=== PATIENT | male | born 1935 | race Caucasian/White ===

== ENCOUNTER 2016-07-10 12:54 | Outpatient (RCR) | payer BC, MEDICARE ==
[~2016-07-10 12:54] MED LIST: ASCO500T20 PO; ASP81CT PO; ATOR20TA66 PO; ATR20T PO; CALC200T40 PO; CHOL10003 PO; CHOL200018 PO; CHOL200035 PO; DCL250C PO; DICL100G18 TP; METO-272 PO; METO100T5 PO; MTP100TCR PO; MTP50T PO; MULT-850 PO; NAPR220T66 PO; NAPR250T2 PO; OMEG-109 PO; OMEG1CAP24 PO; OXYC-197 PO; OXYC-471 PO; POTA99TA18 PO; RIFA150C3 PO; TERA5CAP10 PO; TERA5CAP3 PO; TRIA1CAP4 PO; TRIA1TAB2 PO
== END 2016-07-10 15:04 | disposition home or self-care (01) ==
PROVIDERS: ATTEND Nurse Practitioner
DX: Z47.1 Aftercare following joint replacement surgery (principal); Z96.651 Presence of right artificial knee joint

== ENCOUNTER 2017-01-22 03:16 | Emergency (ER) | payer BC, MEDICARE ==
[~2017-01-22] VITALS: Ht 175.3 cm; Wt 94.3 kg
[~2017-01-22 03:16] MED LIST changes: -METO-272 PO; +METO-370 PO; -NAPR250T2 PO; +NAPR250T6 PO
[2017-01-22] MEDS ORDERED: KETOROLAC 30 MG/ML VIAL IVP STA (03:26)
[2017-01-22] MEDS ORDERED: LACTATED RINGERS 1,000 ML IV ONE (03:26)
--- NOTE | 2017-01-22 03:34 | ED Abdominal Pain ---
General Chief Complaint: Abdominal/GI Problems Stated Complaint: SEVERE ABD PAIN Source of Information: Patient History of Present Illness Time Seen By Provider: 03:19 Initial Comments PT ARRIVES VIA POV FROM HOME C/O SEVERE LLQ PAIN SINCE 2300 MADI TOOK 2 OXYCODONE WITHOUT RELIEF RATES PAIN 10/10 PAIN IS WORSE WITH LAYING FLAT, NOTHING IMPROVES PAIN NO NAUSEA/VOMITING/DIARRHEA HAS BEEN CONSTIPATED TODAY--HAD SMALL BM THIS AM, AND THIS EVENING PASSED A FEW HARD NATASHA--STATES PAIN FEELS LIKE HE IS SEVERELY CONSTIPATED, BUT HAS NOT HAD THIS PROBLEM BEFORE, EXCEPT STATES IT FEELS LIKE WHEN HE HAD APPENDICITIS ONLY PAIN WAS ON THE OTHER SIDE AT THAT TIME NO FEVER NO URINARY SYMPTOMS--HAS PROSTATE PROBLEMS AND ALWAYS HAS DIFFICULTY STARTING STREAM, AND THIS IS NOT ANY DIFFERENT PT LATER STATES THAT HE HAS HAD KIDNEY STONES IN THE PAST AND THIS FEELS THE SAME PCP: DR. BEAR SMALL PIECE CUTTER: DR. CHU UROLOGIST: DR. MARTINEZ Allergies and Home Medications Allergies Coded Allergies: No Known Drug Allergies (Unverified , 04/04/16) Home Medications Ascorbic Acid 500 Mg Tablet, 500 MG PO DAILY, (Reported) Aspirin 81 Mg Chew, 81 MG PO DAILY, (Reported) Atorvastatin Calcium 20 Mg Tablet, 20 MG PO HS, (Reported) Calcium Carbonate 200 Mg Tab.chew, 500 MG PO QID PRN for GAS, #60 Prescribed by: KEN MTZ on 04/12/16 0813 Cholecalciferol (Vitamin D3) 1,000 Unit Tablet, 1,000 UNIT PO DAILY, (Reported) Ciprofloxacin HCl 500 Mg Tablet, 500 MG PO BID, #20 Prescribed by: VI BLAKELY on 01/22/17 0442 Ketorolac Tromethamine 10 Mg Tablet, 10 MG PO Q6H, #15 Prescribed by: VI BLAKELY on 01/22/17 0442 Metoprolol Succinate 50 Mg Tab.er.24h, 50 MG PO DAILY, (Reported) Ollie-3 Fatty Acids/Fish Oil 1 Each Capsule, 1,200 MG PO DAILY, (Reported) Ondansetron 4 Mg Tab.rapdis, 4 MG PO Q4H, #10 Prescribed by: VI BLAKELY on 01/22/17 0442 Oxycodone HCl/Acetaminophen 1 Each Tablet, 1 TAB PO Q4H PRN for MODERATE PAIN, # 60 Prescribed by: KEN MTZ on 04/12/16 0813 Tamsulosin HCl 0.4 Mg Cap, 0.4 MG PO DAILY, #10 Prescribed by: VI BLAKELY on 01/22/17 0442 Terazosin HCl 5 Mg Capsule, 5 MG PO HS, (Reported) Triamterene/Hydrochlorothiazid 1 Each Capsule, 1 TAB PO DAILY, (Reported) Review of Systems Constitutional: no symptoms reported Respiratory: No Symptoms Reported Cardiovascular: No Symptoms Reported Gastrointestinal: See HPI, Abdominal Pain, Constipated, Denies Nausea, Denies Poor Appetite, Denies Poor Fluid Intake, Denies Rectal Bleeding, Denies Vomiting Genitourinary: See HPI Musculoskeletal: no symptoms reported, No back pain Skin: no symptoms reported Psychiatric/Neurological: No Symptoms Reported, Anxiety Endocrine: No Symptoms Reported Hematologic/Lymphatic: No Symptoms Reported Past Pltpygf-Ggttgm-Wkkdde Hx Patient Social History Alcohol Use: Denies Use Recreational Drug Use: No Smoking Status: Never a Smoker Former Smoker, Quit: May 05, 1968 Recent Foreign Travel: No Contact w/Someone Who Travel: No Recent Hopitalizations: Yes (SURGERY RELATED) Immunizations Up To Date Tetanus Booster (TDap): Unknown Date of Pneumonia Vaccine: Oct 03, 2008 Date of Influenza Vaccine: Apr 06, 2016 Seasonal Allergies Seasonal Allergies: No Surgeries History of Surgeries: Yes (HEMORRHOIDECTOMY; RIGHT KNEE REPLACEMENT 11/2015- THEN REVISION X 2 04/2016 FOR INFECTION) Surgeries: Appendectomy, Orthopedic, Rectal Respiratory History of Respiratory Disorde: No Cardiovascular History of Cardiac Disorders: Yes Cardiac Disorders: High Cholesterol, Hypertension Neurological History of Neurological Disord: No Reproductive System Hx Reproductive Disorders: No Genitourinary History of Genitourinary Disor: Yes Genitourinary Disorders: Prostate Problems, Kidney Stones Gastrointestinal History of Gastrointestinal Di: Yes Gastrointestinal Disorders: Hemorrhoids Musculoskeletal History of Musculoskeletal Dis: Yes (RIGHT KNEE PROBLEMS --POST OP INFECTION AFTER RIGHT TKR 11/2015--STILL TAKING PENICILLIN DAILY OF 01/22/17) Musculoskeletal Disorders: Arthritis Endocrine History of Endocrine Disorders: No HEENT History of HEENT Disorders: Yes HEENT Disorders: Cataract Cancer History of Cancer: No Psychosocial History of Psychiatric Problem: No Integumentary History of Skin or Integumenta: No Family Medical History Significant Family History: No Pertinent Family Hx Family Medial History: Cardiovascular disease 19 FATHER Colon cancer 19 MOTHER Diabetes mellitus 19 MOTHER Myocardial infarction 19 FATHER Physical Exam Vital Signs VS - Last 72 Hours, by Label 01/22/17 03:20 Temp 97.2 Pulse 62 Resp 20 B/P (MAP) 146/99 Pulse Ox 98 O2 Delivery Room Air Capillary Refill : General Appearance: WD/WN, mild distress, other (ANXIOUS, PACING, HOLDING LLQ, MOANING) Respiratory: normal breath sounds, no respiratory distress, no accessory muscle use Cardiovascular: regular rate, rhythm, no murmur Gastrointestinal: normal bowel sounds, non tender, soft, no organomegaly, no pulsatile mass, No distended, No guarding, No rebound, No tenderness Extremities: normal inspection Back: normal inspection, no CVA tenderness Neurologic/Psychiatric: reconsignment clerk II-XII nml as tested, no motor/sensory deficits, alert, oriented x 3 Skin: normal color, warm/dry, No rash Progress/Results/Core Measures Results/Orders Lab Results Laboratory Tests Test 01/22/17 03:35 01/22/17 04:07 Range/Units White Blood Count 9.5 4.3-11.0 10^3/uL Red Blood Count 4.97 4.35-5.85 10^6/uL Hemoglobin 15.2 13.3-17.7 G/DL Hematocrit 45 40-54 % Mean Corpuscular Volume 91 80-99 FL Mean Corpuscular Hemoglobin 31 25-34 PG Mean Corpuscular Hemoglobin Concent 34 32-36 G/DL Red Cell Distribution Width 12.5 10.0-14.5 % Platelet Count 267 130-400 10^3/uL Mean Platelet Volume 10.8 H 7.4-10.4 FL Neutrophils (%) (Auto) 63 42-75 % Lymphocytes (%) (Auto) 21 12-44 % Monocytes (%) (Auto) 9 0-12 % Eosinophils (%) (Auto) 5 0-10 % Basophils (%) (Auto) 2 0-10 % Neutrophils # (Auto) 6.0 1.8-7.8 X 10^3 Lymphocytes # (Auto) 2.0 1.0-4.0 X 10^3 Monocytes # (Auto) 0.9 0.0-1.0 X 10^3 Eosinophils # (Auto) 0.5 H 0.0-0.3 10^3/uL Basophils # (Auto) 0.2 H 0.0-0.1 10^3/uL Sodium Level 143 135-145 MMOL/L Potassium Level 3.4 L 3.6-5.0 MMOL/L Chloride Level 104 98-107 MMOL/L Carbon Dioxide Level 26 21-32 MMOL/L Anion Gap 13 5-14 MMOL/L Blood Urea Nitrogen 16 7-18 MG/DL Creatinine 1.26 0.60-1.30 MG/DL Estimat Glomerular Filtration Rate 55 BUN/Creatinine Ratio 13 Glucose Level 141 H 70-105 MG/DL Calcium Level 9.9 8.5-10.1 MG/DL Total Bilirubin 0.5 0.1-1.0 MG/DL Aspartate Amino Transf (AST/SGOT) 19 5-34 U/L Alanine Aminotransferase (ALT/SGPT) 27 0-55 U/L Alkaline Phosphatase 116 40-136 U/L Total Protein 7.3 6.4-8.2 GM/DL Albumin 4.1 3.2-4.5 GM/DL Amylase Level 62 25-125 U/L Lipase 34 8-78 U/L Urine Color YELLOW Urine Clarity SLIGHTLY CLOUDY Urine pH 7 5-9 Urine Specific [place] 1.010 L 1.016-1.022 Urine Protein 1+ H NEGATIVE Urine Glucose (UA) NEGATIVE NEGATIVE Urine Ketones NEGATIVE NEGATIVE Urine Nitrite NEGATIVE NEGATIVE Urine Bilirubin NEGATIVE NEGATIVE Urine Urobilinogen NORMAL NORMAL MG/DL Urine Leukocyte Esterase NEGATIVE NEGATIVE Urine RBC (Auto) 3+ H NEGATIVE Urine RBC 5-10 H /HPF Urine WBC NONE /HPF Urine Squamous Epithelial Cells 0-2 /HPF Urine Crystals PRESENT H /LPF Urine Amorphous Sediment MOD TRISHA PHOSPHATE H /LPF Urine Bacteria TRACE /HPF Urine Casts NONE /LPF Urine Mucus NEGATIVE /LPF Urine Culture Indicated NO My Orders Orders - VI BLAKELY K DO Saline Lock/Iv-Start (01/22/17 03:26) Amylase (01/22/17 03:26) Cbc With Automated Diff (01/22/17 03:26) Comprehensive Metabolic Panel (01/22/17 03:26) Lipase (01/22/17 03:26) Ua Culture If Indicated (01/22/17 03:26) Ct Abd/Pelvis Wo(Kidney Stone) (01/22/17 03:26) Acute Abd Series (01/22/17 03:26) Saline Lock/Iv-Start (01/22/17 03:26) Lactated Ringers (Lr 1000 Ml Iv Solution (01/22/17 03:26) Ketorolac Injection (Toradol Injection) (01/22/17 03:26) Alfuzosin Tablet (Uroxatral Tablet) (01/22/17 04:30) Levofloxacin Tablet (Levaquin Tablet) (01/22/17 04:30) Medications Given in ED Current Medications Medications Dose Ordered Sig/Gilbert Route Start Time Stop Time Status Last Admin Dose Admin Lactated Ringer's 1,000 ml @ 0 mls/hr Q0M ONCE IV 01/22/17 03:26 01/22/17 03:29 DC 01/22/17 03:39 1,000 MLS/HR Vital Signs/I&O Vital Sign - Last 12Hours 01/22/17 03:20 Temp 97.2 Pulse 62 Resp 20 B/P (MAP) 146/99 Pulse Ox 98 O2 Delivery Room Air Progress Note : Progress Note PAIN RELIEVED WITH TORADOL Diagnostic Imaging Comments ACUTE ABDOMEN XRAYS--ILEUS, MULTIPLE CALCIFICATIONS IN PELVIS--PENDING RADIOLOGIST REVIEW CT ABDOMEN/ PELVIS--5 MM STONE IN LEFT DISTAL URETER, MILD LEFT HYDRONEPHROSIS, WITH PERINEPHRIC STRANDING,OTHER NON-ACUTE FINDINGS--PER [facility] VIA FAX @ [id number] Reviewed: Reviewed by Me Departure Impression Impression: Primary Impression: Left ureteral calculus Disposition: HOME, SELF-CARE Condition: Improved Departure-Patient Inst. Referrals: SAMARA BEAR MD (PCP/Family) Primary Care Physician CESARIO MARTINEZ MD Patient Instructions: Kidney Stones (DC) Add. Discharge Instructions: LOTS OF CLEAR LIQUIDS YOU MAY TAKE YOUR REGULAR OXYCODONE EVERY 4 HOURS NEEDED FOR PAIN STRAIN ALL URINE--RETURN ANY STONES TO DR. MARTINEZ'S OFFICE FOLLOW UP WITH DR. MARTINEZ THIS WEEK FOR FURTHER CARE--CALL THIS AM FOR APPOINTMENT RETURN TO ER IF SYMPTOMS WORSEN All discharge instructions reviewed with patient and/or family. Voiced understanding. Scripts Ketorolac Tromethamine (Ketorolac Tromethamine) 10 Mg Tablet 10 MG PO Q6H for Pain, #15 TAB Prov: VI BLAKELY DO 01/22/17 Ondansetron (Zofran Odt) 4 Mg Tab.rapdis 4 MG PO Q4H for Nausea/Vomiting, #10 TAB Prov: VI BLAKELY DO 01/22/17 Tamsulosin HCl (Flomax) 0.4 Mg Cap 0.4 MG PO DAILY, #10 CAP Prov: VI BLAKELY DO 01/22/17 Ciprofloxacin HCl (Cipro) 500 Mg Tablet 500 MG PO BID, #20 TAB Prov: VI BLAKELY DO 01/22/17 VI BLAKELY DO Jan 22, 2017 03:34
[2017-01-22 03:48] LABS: BASOPHILS # (AUTO) 0.2 10^3/uL (0.0-0.1); BASOPHILS % (AUTO) 2 % (0-10); EOSINOPHILS # (AUTO) 0.5 10^3/uL (0.0-0.3); EOSINOPHILS % (AUTO) 5 % (0-10); LYMPHOCYTES % (AUTO) 21 % (12-44); MEAN CORPUSCULAR HEMOGLOBIN 31 PG (25-34); MEAN CORPUSCULAR HGB CONC 34 G/DL (32-36); MEAN CORPUSCULAR VOLUME 91 FL (80-99); MEAN PLATELET VOLUME 10.8 FL (7.4-10.4); MONOCYTES # (AUTO) 0.9 X 10^3 (0.0-1.0); MONOCYTES % (AUTO) 9 % (0-12); NEUTROPHILS % (AUTO) 63 % (42-75); PLATELET COUNT 267 10^3/uL (130-400); RED BLOOD COUNT 4.97 10^6/uL (4.35-5.85); RED CELL DISTRIBUTION WIDTH 12.5 % (10.0-14.5); WHITE BLOOD COUNT 9.5 10^3/uL (4.3-11.0)
[2017-01-22 04:18] LABS: ALBUMIN 4.1 GM/DL (3.2-4.5); BILIRUBIN,TOTAL 0.5 MG/DL (0.1-1.0); CALCIUM 9.9 MG/DL (8.5-10.1); CREATININE SERUM 1.26 MG/DL (0.60-1.30); POTASSIUM 3.4 MMOL/L (3.6-5.0); TOTAL PROTEIN 7.3 GM/DL (6.4-8.2)
[2017-01-22 04:26] LABS: BILIRUBIN,URINE NEGATIVE (NEGATIVE); KETONES,URINE NEGATIVE (NEGATIVE); LEUKOCYTE ESTERASE ,URINE NEGATIVE (NEGATIVE); NITRITE,URINE NEGATIVE (NEGATIVE); PH,URINE 7 (5-9); PROTEIN,URINE 1+ (NEGATIVE); UROBILINOGEN,URINE NORMAL (NORMAL)
[2017-01-22] MEDS ORDERED: ALFUZOSIN HCL 10 MG TAB (UROXATRAL) PO SCH (04:30)
[2017-01-22] MEDS ORDERED: LEVOFLOXACIN 500 MG TAB (LEVAQUIN) PO ONE (04:30)
[2017-01-22] MEDS ORDERED: TAMS0.4C98 PO (04:42)
[2017-01-22] MEDS ORDERED: ONDA4TAB8 PO (04:42)
[2017-01-22] MEDS ORDERED: KETO10TA PO (04:42)
[2017-01-22] MEDS ORDERED: CIPR-225 PO (04:42)
[2017-01-22 04:45] LABS: SQUAMOUS EPITHELIAL CELL,UR 0-2 /HPF
[2017-01-22 05:00] VITALS: BP 141/88
--- NOTE | 2017-01-22 07:09 | Diagnostic Imaging Report ---
INDICATION: Four-hour history of left lower quadrant pain. TECHNIQUE: Single view chest with supine and upright radiographs of the abdomen. 4:17 AM CORRELATION STUDY: Chest 03/23/2016 FINDINGS: Minimal atelectasis or scarring about the left lung base. No infiltrate. Heart size, mediastinum, and vascular markings. May be small hiatal hernia present. Scattered gas-filled loops of bowel are present. This includes prominent gas-filled loops of small bowel centrally. Slight thick walled appearance is suggested. Moderate severity fecal retention. Gas and stool is noted within the colon. Calcifications in the pelvis are indeterminate. Large number likely prostate and or vascular in nature. Distal ureteral stones would be difficult to exclude. IMPRESSION: 1. Negative for acute cardiopulmonary abnormality. 2. Diffuse bowel gas distention. This may be reflective of nonspecific ileus. However, there is question of perhaps small bowel wall thickening in the central aspect of the abdomen of which underlying other etiologies such as enteritis not excluded. No findings to suggest high degree bowel obstruction. Dictated by: Dictated on workstation # [id number]
--- NOTE | 2017-01-22 08:37 | Diagnostic Imaging Report ---
PROCEDURE: CT urinary tract, rule out kidney stone. TECHNIQUE: Multiple contiguous axial images were obtained through the abdomen and pelvis without the use of intravenous contrast. INDICATION: Left lower quadrant pain x 4 hours. CORRELATION STUDY: None. FINDINGS: LOWER THORAX: Minimal atelectasis or scarring. Heart size is mildly enlarged. Trace pericardial effusion. Small hiatal hernia. LIVER: Unremarkable. GALLBLADDER: Present and unremarkable. No bile duct dilatation. SPLEEN: Unremarkable. PANCREAS: Unremarkable. ADRENAL GLANDS: Unremarkable. KIDNEYS: Approximately 5 mm stone in the distal left ureter resulting in mild to moderate left-sided hydroureteronephrosis. There is rather pronounced and significant perinephric stranding. The possibility of superimposed infection or forniceal rupture is not excluded. Additional nonobstructing stones in both kidneys are present. The right collecting system is unremarkable. ABDOMINAL AORTA: Mild wall calcification. Nonaneurysmal. Fat-containing bilateral inguinal hernias. GASTROINTESTINAL TRACT: Colonic diverticuli without evidence for acute diverticulitis. URINARY BLADDER: Relatively decompressed. REPRODUCTIVE: The prostate gland is enlarged and lobulated containing calcifications. OSSEOUS STRUCTURES: Multilevel degenerative changes are present. IMPRESSION: 1. Mild to moderate left-sided hydroureteronephrosis with obstructive uropathy owing to an approximately 5 mm stone at the distal left ureter. Significant perinephric fat stranding is noted. This could be reflective of underlying forniceal rupture. Additionally, correlation for superimposed infection is recommended. 2. Additional nonobstructing bilateral renal stones are present. 3. Hiatal hernia. 4. Colonic diverticulosis. 5. A preliminary report was provided by [employer]. Dictated by: Dictated on workstation # [id number]
[2017-01-28] MEDS ORDERED: METO-387 PO (12:13)
[2017-03-11] MEDS ORDERED: PENI500T PO (08:59)
[2017-03-11] MEDS ORDERED: CIPR-225 PO (12:06)
[2017-03-11] MEDS ORDERED: PHEN-640 PO (12:06)
== END 2017-01-22 05:00 | disposition home or self-care (01) ==
LOC: EDUNIT# 03:16 → ER 03:18
DX: Z87.438 Personal history of other diseases of male genital organs; Z90.49 Acquired absence of other specified parts of digestive tract; N20.1 Calculus of ureter; I10 Essential (primary) hypertension; Z87.891 Personal history of nicotine dependence; Z79.82 Long term (current) use of aspirin; Z96.661 Presence of right artificial ankle joint; E78.00 Pure hypercholesterolemia, unspecified; Z87.19 Personal history of other diseases of the digestive system
CPT/HCPCS: 36415; 74022; 74176; 80053; 81000; 82150; 83690; 85025; 96361; 96374

== ENCOUNTER → 2017-01-27 | Outpatient (CLI) | payer BC, MEDICARE ==
[~2017-01-27] MED LIST changes: +ASCO10006 PO; +ASPI-999 PO; +CHOL200025 PO; +CIPR-225 PO; +DOCU-238 PO; +KETO10TA PO; +L.AC1CAP6 PO; +METO-270 PO; +METO-272 PO; -METO-370 PO; +NAPR250T2 PO; -NAPR250T6 PO; +ONDA4TAB8 PO; +TAMS0.4C98 PO
--- NOTE | 2017-01-27 13:09 | Diagnostic Imaging Report ---
INDICATION: History of obstructive uropathy. COMPARISON: 01/22/2017. FINDINGS: Single supine radiographic view of the abdomen was obtained. Multiple extraosseous calcifications are again noted projecting over the bilateral renal shadows consistent with known nephrolithiasis. Multiple extra osseous calcifications are also seen projecting over the bilateral pelvis in the expected location of the distal ureters. Differentiation of phlebolith versus known ureteral calculus is suboptimal given modality. No new unexpected radiopaque foreign bodies are seen. Small bowel loops are nondistended. There is no large collection of free peritoneal air. Bony structures show no gross acute abnormalities. IMPRESSION: 1. Multiple pelvic calcifications. Again, differentiation between ureteral calculus and phlebolith is suboptimal given modality. 2. Nephrolithiasis. 3. Nonobstructive small bowel gas pattern. Dictated by: Dictated on workstation # [id number]
== END ==
LOC: RAD 12:46
PROVIDERS: ATTEND Urology
DX: N20.0 Calculus of kidney (principal)
CPT/HCPCS: 74000

== ENCOUNTER 2017-01-28 05:30 | Outpatient (CLI) | payer BC, MEDICARE ==
[~2017-01-28] VITALS: Ht 175.3 cm; Wt 94.4 kg
[~2017-01-28 05:30] MED LIST changes: -ASCO10006 PO; -ASPI-999 PO; -CHOL200025 PO; -DOCU-238 PO; -L.AC1CAP6 PO; -METO-270 PO
[2017-01-28] MEDS ORDERED: L.AC1CAP6 PO (12:13)
[2017-01-28] MEDS ORDERED: ASCO10006 PO (12:13)
[2017-01-28] MEDS ORDERED: CHOL200025 PO (12:13)
[2017-01-28] MEDS ORDERED: METO-270 PO (12:13)
[2017-01-28] MEDS ORDERED: DOCU-238 PO (12:13)
[2017-01-28] MEDS ORDERED: ASPI-999 PO (12:13)
== END 2017-01-28 12:23 ==
LOC: PREOP 05:30
PROVIDERS: ATTEND Urology
DX: Z01.818 Encounter for other preprocedural examination (principal); N20.1 Calculus of ureter

== ENCOUNTER 2017-02-04 06:52 | Day surgery (SDC) | payer BC, MEDICARE ==
[~2017-02-04] VITALS: Ht 175.3 cm; Wt 94.4 kg
[~2017-02-04 06:52] MED LIST changes: +ASCO10006 PO; +ASPI-999 PO; +CHOL200025 PO; +DOCU-238 PO; +L.AC1CAP6 PO; +METO-270 PO
[2017-02-04 07:30] VITALS: BP 137/87
[2017-02-04] MEDS ORDERED: cefTRIAXone 1 GM/NS 50 ML IVPB IV ONE ×2 (07:30)
[2017-02-04] MEDS ORDERED: CATHETER FLUSH 10 ML SYR IV PRN (07:30)
--- NOTE | 2017-02-04 08:12 | Diagnostic Imaging Report ---
Supine view of the abdomen. INDICATION: Left-sided stones. FINDINGS: There are multiple pelvic calcifications most likely related to phleboliths and prostate calcifications. No definitive ureteric or bladder stones seen. There is suggestion of tiny kidney stones up to 4 mm in the right kidney mid region and up to 5 mm in the lower pole of the left kidney. IMPRESSION: Pelvic calcifications appear to be related to phleboliths. There are bilateral flank calcifications that could correlate with kidney stones. Dictated by: Dictated on workstation # [id number]
[2017-02-04] MEDS ORDERED: SEVOFLURANE (ULTANE) 15 ML INHAL SOLN ONE (08:28)
[2017-02-04] MEDS ORDERED: LIDOCAINE PF 2% 5 ML (XYLOCAINE) VIAL ONE (08:28)
[2017-02-04] MEDS ORDERED: proPOfol 200 MG/20 ML (DIPRIVAN) VIAL IV ONE (08:28)
[2017-02-04] MEDS ORDERED: DEXAMETHASONE 10 MG/ML (DECADRON) 1 ML VIAL ONE (08:28)
[2017-02-04] MEDS ORDERED: ROCURONIUM 50 MG/5 ML (ZEMURON) VIAL IV ONE (08:28)
[2017-02-04] MEDS ORDERED: ONDANSETRON 4 MG/2 ML (SDV) Z0FRAN ONE (08:28)
[2017-02-04] MEDS ORDERED: fentaNYL INJECTION 100 MCG/2 ML AMP ONE (08:28)
--- NOTE | 2017-02-04 08:31 | Progress Note-Pre Operative ---
Pre-Operative Progress Note H&P Reviewed The H&P was reviewed, patient examined and no changes noted. Date Seen by Provider: Feb 04, 2017 Time Seen by Provider: 08: Date H&P Reviewed: Feb 04, 2017 Time H&P Reviewed: 08:31 Pre-Operative Diagnosis: LT URETERAL STONES AND BILATERAL RENAL STONES CESARIO MARTINEZ MD Feb 04, 2017 8:31 am
[2017-02-04] MEDS ORDERED: LACTATED RINGERS 1,000 ML IV PRN (08:32)
[2017-02-04] MEDS ORDERED: NEOSTIGMINE (BLOXIVERZ ) 1 MG/1ML 10 ML VIAL ONE (09:07)
[2017-02-04] MEDS ORDERED: GLYCOPYRROLATE 0.2 MG/ML (ROBINUL) 2 ML VIAL ONE (09:07)
--- NOTE | 2017-02-04 09:31 | Progress Note-Post Operative ---
Post-Operative Progess Note Surgeon (s)/Special Equipment Technician (s) Surgeon CESARIO MARTINEZ MD Special Equipment Technician: N/A Pre-Operative Diagnosis LT URETERAL STONES AND BILATERAL RENAL STONES Post-Operative Diagnosis SAME Procedure & Operative Findings Date of Procedure 02/04/17 Procedure Performed/Findings CYSTOSCOPY, ATTEMPTED LT URETEROSCOPY, ATTEMPTED LT STENT Anesthesia Type GENERAL Estimated Blood Loss Estimated blood loss (mL): N/A Specimens/Packing Specimens Removed N/A Packing: N/A CESARIO MARTINEZ MD Feb 04, 2017 9:31 am
--- NOTE | 2017-02-04 09:33 | Discharge Inst-Urology ---
Discharge Inst-Urology Discharge Medications New, Converted, or Re-newed RX: RX on Chart Patient Instructions/Follow Up Plan Please make appointment to been seen in office tomorrow at 1:30pm Increase oral fluids for 48 hours and then as needed. Diet and Activity as tolerated. If questions or concerns contact your physician Or seek help at emergency department. CESARIO MARTINEZ MD Feb 04, 2017 9:33 am
[2017-02-04] MEDS ORDERED: morphine INJ 10 MG/ML 1ML (SYR OR VIAL) IVP PRN (10:00)
[2017-02-04] MEDS ORDERED: ONDANSETRON 4 MG/2 ML (SDV) Z0FRAN IVP PRN (10:00)
[2017-02-04 10:15] VITALS: BP 143/79
[2017-02-04 10:45] VITALS: BP_SYST 128; BP_SYST 138; BP_DIAS 74; BP_DIAS 81
[2017-02-04] MEDS ORDERED: PHEN-639 PO (10:52)
[2017-02-04] MEDS ORDERED: CIPR-225 PO (10:52)
[2017-02-04 11:15] VITALS: BP 128/74
--- NOTE | 2017-02-06 01:34 | OPERATIVE REPORT ---
DATE OF SERVICE: 02/04/2017 PREOPERATIVE DIAGNOSES: 1. Left distal ureteral stone. 2. Bilateral renal stone. POSTOPERATIVE DIAGNOSES: 1. Left distal ureteral stone. 2. Bilateral renal stone. 3. Benign prostatic hypertrophy. OPERATION PERFORMED: 1. Cystoscopy. 2. Attempted left ureteroscopy. 3. Attempted left stent. SURGEON: Yury Martinez MD ANESTHESIA: General. COMPLICATIONS: None. PROCEDURE: Under satisfactory general anesthesia, the patient in lithotomy position, genitalia were prepped and draped in usual sterile fashion. A 23- Arabic cystoscope was introduced under vision. The anterior urethra was normal. The prostate showed enlargement of the lateral lobe with some medium bar. The bladder was inspected and revealed trabeculation. The ureteric orifices, the right one was kind of patent and the left one was narrowed and displaced kind of upward and laterally. Using the Foroblique lens, I attempted to dilate the left ureteral orifice intramural portion but was unsuccessful and I did not want to force the issue since so far things were going the right way guided fluoroscopically. I removed the cystoscope, inserted a 6.9-Arabic semi-rigid ureteroscope; however, I could not pass the intramural portion probably because of the curve of ureter from a fishhook deformity related to the enlarged prostate. I discontinued further attempt. I attempted to pass a stent, was again unsuccessful bypassing the intramural portion and I did not want to force the issue in order to not to cause any harm. I emptied the bladder, removed the cystoscope. The patient tolerated the procedure and anesthesia well and was sent to the recovery room in stable condition. PLAN: Refer to either [facility] or [facility] for flexible ureteroscopy. Job ID: [id number] DocumentID: [id number] Dictated Date: 02/04/2017 09:36:54 Lockstitch Sleeve Maker Date: 02/04/2017 17:56:15 Dictated By: YURY MARTINEZ MD
== END 2017-02-04 11:38 | disposition home or self-care (01) ==
LOC: SDC 06:52
PROVIDERS: ATTEND Urology
DX: N40.0 Benign prostatic hyperplasia without lower urinary tract symptoms; E78.5 Hyperlipidemia, unspecified; Z79.899 Other long term (current) drug therapy; N20.2 Calculus of kidney with calculus of ureter; I10 Essential (primary) hypertension; E11.9 Type 2 diabetes mellitus without complications; Z87.891 Personal history of nicotine dependence
CPT/HCPCS: 74000; 87081

== ENCOUNTER → 2017-02-19 | Outpatient (CLI) | payer BC, MEDICARE ==
[~2017-02-19] MED LIST changes: +PHEN-639 PO
--- NOTE | 2017-02-19 11:29 | Diagnostic Imaging Report ---
PROCEDURE: CT abdomen and pelvis without contrast. TECHNIQUE: Multiple contiguous axial images were obtained through the abdomen and pelvis without the use of intravenous contrast. INDICATION: Left ureteric stone. COMPARISON: 01/22/2017. FINDINGS: The lung bases appear clear. The liver, the gallbladder, the spleen, and the adrenal glands appear unremarkable for an unenhanced exam. Tiny calcification near the pancreatic body is probably vascular with no definite abnormality seen. There is no hydronephrosis. Bilateral nonobstructive kidney stones up to 6 mm in the lower pole of the left kidney and up to 5 mm in the mid right kidney are noted. There is interval significant improvement in the previously seen hydronephrosis and perinephric edema around the left kidney. There is, however, still a stone seen at the left ureteric orifice in the bladder which is presumably the same stone that was previously seen just proximal to the UVJ. It measures 3 mm. The prostate is enlarged measuring 5.6 cm in transverse dimension. There is no bowel obstruction. Scattered diverticula are seen in the colon with no evidence of diverticulitis. No bowel obstruction. The abdominal aorta is normal in caliber. No para-aortic significantly enlarged lymph node is seen. There is diastasis of the recti. There is a small fat-containing umbilical hernia. The osseous structures demonstrate degenerative changes. IMPRESSION: 1. A 3-mm bladder stone is seen at the orifice of the left ureter. 2. Bilateral nonobstructive kidney stones with no hydronephrosis. 3. Fat-containing umbilical hernia. 4. Diverticulosis. No diverticulitis. Dictated by: Dictated on workstation # [id number]
== END ==
LOC: RAD 10:12
PROVIDERS: ATTEND Urology
DX: N20.1 Calculus of ureter (principal)
CPT/HCPCS: 74176

== ENCOUNTER → 2017-09-23 | Outpatient (CLI) | payer BC, MEDICARE ==
[~2017-09-23] MED LIST changes: -METO-270 PO; -METO-272 PO; +METO-370 PO; +METO-387 PO; -NAPR250T2 PO; +NAPR250T6 PO; +PENI500T PO; +PHEN-640 PO
--- NOTE | 2017-09-23 16:53 | Diagnostic Imaging Report ---
INDICATION: Left ureteral stone. TIME OF EXAM: 5:04 PM Correlation is made with prior radiograph from 03/11/2017. FINDINGS: Bowel gas pattern is unremarkable. Pelvic calcifications appear similar to prior exam and may represent phleboliths. There are some calcific densities overlying the renal shadows bilaterally suggestive of renal calculi. No other abnormality is seen. IMPRESSION: Probable bilateral renal calculi. Pelvic calcifications, likely phleboliths. No other significant abnormality is seen. Dictated by: Dictated on workstation # [id number]
== END ==
LOC: RAD 16:31
PROVIDERS: ATTEND Urology
DX: N20.1 Calculus of ureter (principal)
CPT/HCPCS: 74018

== ENCOUNTER → 2018-07-01 | Outpatient (CLI) | payer BC, MEDICARE ==
[~2018-07-01] MED LIST changes: -OXYC-197 PO; +OXYC1TAB87 PO
== END ==
LOC: CARD 09:27
PROVIDERS: ATTEND Internal Medicine Cardiovascular Disease
DX: R06.00 Dyspnea, unspecified (principal); I10 Essential (primary) hypertension; R60.0 Localized edema; I08.1 Rheumatic disorders of both mitral and tricuspid valves
CPT/HCPCS: 93306

== ENCOUNTER → 2018-07-09 | Outpatient (CLI) | payer BC, MEDICARE ==
--- NOTE | 2018-07-09 12:27 | Diagnostic Imaging Report ---
INDICATION: Thyroid nodule. TECHNIQUE: Grayscale sonographic images of the thyroid gland. CORRELATION STUDY: None. FINDINGS: RIGHT LOBE: Enlarged at 6.0 x 2.6 x 1.6 cm. There are multiple masses within the right lobe. Superiorly, there is a solid slightly hypoechoic mass present with internal vascularity. Margins are fairly well defined with slightly hypoechoic rim. This measures 18 x 10 x 14 mm. A heterogeneous but relatively isoechoic nodule in the inferior lobe measures 9 x 11 x 7 mm. Minimal internal vascularity. Additional smaller nodules are present. LEFT LOBE: Borderline enlarged at 5.4 x 2.0 x 1.7 cm. Multiple masses are noted within the left lobe. In the mid aspect is a small heterogeneous mixed echogenic nodule at 7 x 7 x 6 mm. There does appear to be some calcification in the wall as well as internally. Minimal internal vascularity. Inferiorly, there is a fairly uniformly solid mass is present. Slight hypoechoic halo is present. Internal vascularity. This measures 14 x 12 x 9 mm. Superiorly, slightly hypoechoic mixed echogenic nodule 11 x 5 x 5 mm. Additional smaller nodules are present. Isthmus appears unremarkable. IMPRESSION: 1. Enlarged thyroid gland containing multiple nodules of various appearances and characteristics. Slightly more focal indeterminate mass about the superior pole right lobe as well as inferior pole left lobe. 2. Consideration might be given to nuclear medicine thyroid scan for assessment of potential cold nodule. Depending on these findings, either fine-needle aspiration or periodic surveillance and follow-up ultrasound imaging would be recommended. (Normal gland size: 4-5 x 2 x 2 cm) Dictated by: Dictated on workstation # [id number]
== END ==
LOC: RAD 08:53
PROVIDERS: ATTEND Internal Medicine Cardiovascular Disease
DX: E04.2 Nontoxic multinodular goiter (principal)
CPT/HCPCS: 76536

== ENCOUNTER 2018-08-07 17:38 | Emergency (ER) | payer BC, MEDICARE ==
[~2018-08-07] VITALS: Ht 175.3 cm; Wt 94.3 kg
[2018-08-07] MEDS ORDERED: LACTATED RINGERS 1,000 ML IV ONE (17:59)
[2018-08-07] MEDS ORDERED: KETOROLAC 30 MG/ML VIAL IVP STA (17:59)
--- NOTE | 2018-08-07 18:07 | ED Abdominal Pain ---
General Chief Complaint: Abdominal/GI Problems Stated Complaint: L SIDE PAIN Nursing Triage Note: AMBULATORY TO ED WITH C/O LLQ ABD PAIN STARTING ABOUT AN HOUR AGO. HX OF KIDNEY STONES WELL KIDNEY STONE IN LEFT URETER APPROX [address] MARTINEZ DOES NOT HAVE TOOLS TO REMOVE. Sepsis Screen: No Definite Risk Source of Information: Patient Exam Limitations: No Limitations History of Present Illness Date Seen by Provider: Aug 07, 2018 Time Seen by Provider: 17:55 Initial Comments PT ARRIVES VIA POV FROM HOME C/O SUDDEN ONSET OF LLQ PAIN 1 HOUR AGO NO RADIATION OF PAIN NOTHING WORSENS OR IMPROVES PAIN NO NAUSEA/VOMITING NO DIARRHEA OR CONSTIPATION NO URINARY SYMPTOMS NO FEVER , SWEATS OR CHILLS STATES HE HAS A KNOWN KIDNEY STONE ON LEFT, BUT DR. MARTINEZ WAS UNABLE TO REMOVE IN THE PAST, AND HAS NOT GIVEN HIM ANY PROBLEMS FOR A LONG TIME STATES THIS FEELS SIMILAR TO KIDNEY STONES IN THE PAST PCP: DR. BEAR UROLOGIST: DR. MARTINEZ Allergies and Home Medications Allergies Coded Allergies: No Known Drug Allergies (Unverified , 01/28/17) Home Medications Ascorbic Acid 1,000 Mg Tablet, 1,000 MG PO DAILY, (Reported) Atorvastatin Calcium 20 Mg Tablet, 20 MG PO HS, (Reported) Cholecalciferol (Vitamin D3) 2,000 Unit Tablet, 2,000 UNIT PO DAILY, (Reported) Ciprofloxacin HCl 500 Mg Tablet, 500 MG PO BID Prescribed by: JAMIE DUQUE on 03/11/17 1206 Docusate Sodium 100 Mg Capsule, 100 MG PO DAILY, (Reported) L.acidoph & Paracasei,B.lactis 1 Each Capsule, PO DAILY, (Reported) Metoprolol Succinate 25 Mg Tab.er.24h, 25 MG PO DAILY, (Reported) [place]-3 Fatty Acids/Fish Oil 1 Each Capsule, 1,200 MG PO DAILY, (Reported) Oxycodone HCl/Acetaminophen 1 Each Tablet, 1 TAB PO Q4H PRN for MODERATE PAIN Prescribed by: KEN MTZ on 04/12/16 0813 Penicillin V Potassium 500 Mg Tablet, 500 MG PO DAILY, (Reported) Phenazopyridine HCl 200 Mg Tablet, 1 TAB PO TID Prescribed by: JAMIE DUQUE on 03/11/17 1206 Tamsulosin HCl 0.4 Mg Cap, 0.4 MG PO DAILY Prescribed by: VI BLAKELY on 01/22/17 0442 Terazosin HCl 5 Mg Capsule, 5 MG PO HS, (Reported) Triamterene/Hydrochlorothiazid 1 Each Capsule, 1 TAB PO DAILY, (Reported) Review of Systems Review of Systems Constitutional: no symptoms reported; No chills, No diaphoresis, No fever Respiratory: No Symptoms Reported Cardiovascular: No Symptoms Reported Gastrointestinal: See HPI, Abdominal Pain; Denies Constipated, Denies Diarrhea , Denies Nausea, Denies Vomiting Genitourinary: No Symptoms Reported; Denies Flank Pain Musculoskeletal: no symptoms reported; No back pain Skin: no symptoms reported Psychiatric/Neurological: No Symptoms Reported Endocrine: No Symptoms Reported Hematologic/Lymphatic: No Symptoms Reported Past Jfiqlqa-[id number]-[id number] Hx Patient Social History Alcohol Use: Denies Use Recreational Drug Use: No Smoking Status: Former Smoker Type Used: Cigarettes Former Smoker, Quit: Jan 28, 1978 Recent Foreign Travel: No Contact w/Someone Who Travel: No Recent Infectious Disease Expo: No Recent Hopitalizations: No Immunizations Up To Date Tetanus Booster (TDap): Unknown Date of Pneumonia Vaccine: Oct 03, 2008 Date of Influenza Vaccine: Jan 13, 2017 Seasonal Allergies Seasonal Allergies: No Past Medical History Surgeries: Yes (HEMORRHOIDS, HERNIA, KIDNEY STONE, CIRC, RT TKR x3) Abdominal, Appendectomy, Joint Replacement, Orthopedic, Rectal, Renal Respiratory: No Cardiac: Yes High Cholesterol, Hypertension Neurological: No Reproductive Disorders: No Sexually Transmitted Disease: No HIV/AIDS: No Genitourinary: Yes Prostate Problems, Kidney Stones Gastrointestinal: Yes Abdominal Hernia, Chronic Constipation, Hemorrhoids, Polyps Musculoskeletal: Yes (LOWER BACK PAIN) Arthritis, Chronic Back Pain Endocrine: Yes (BORDERLINE DIABETES) HEENT: Yes Cataract Hearing Impairment: Denies Cancer: No Psychosocial: No Integumentary: Yes Pruritis Blood Disorders: No Adverse Reaction/Blood Tranf: No (N/A) Family Medical History Cardiovascular disease 19 FATHER Colon cancer 19 MOTHER Diabetes mellitus 19 MOTHER Myocardial infarction 19 FATHER No Pertinent Family Hx Physical Exam Vital Signs Vital Signs - First Documented 08/07/18 17:44 Temp 96.0 Pulse 73 B/P (MAP) 155/77 (103) Capillary Refill : Less Than 3 Seconds Height/Weight/BMI Height: 5'9.00" Weight: 208lbs. 1.6oz. [id number]; 30.7 BMI Method:Stated General Appearance: WD/WN, no apparent distress Respiratory: normal breath sounds, no respiratory distress, no accessory muscle use Cardiovascular: regular rate, rhythm, no murmur Gastrointestinal: normal bowel sounds, soft, no organomegaly, no pulsatile mass ; No distended, No guarding, No rebound; tenderness (LLQ); No hernia Extremities: normal inspection, pelvis stable Back: normal inspection, no CVA tenderness Neurologic/Psychiatric: scleroscope tester II-XII nml as tested, no motor/sensory deficits, alert, normal mood/affect, oriented x 3 Skin: normal color, warm/dry; No rash Progress/Results/Core Measures Results/Orders Lab Results Laboratory Tests Test 08/07/18 17:50 08/07/18 17:57 Range/Units Urine Color YELLOW Urine Clarity CLEAR Urine pH 7 5-9 Urine Specific [place] 1.005 L 1.016-1.022 Urine Protein NEGATIVE NEGATIVE Urine Glucose (UA) NEGATIVE NEGATIVE Urine Ketones NEGATIVE NEGATIVE Urine Nitrite NEGATIVE NEGATIVE Urine Bilirubin NEGATIVE NEGATIVE Urine Urobilinogen NORMAL NORMAL MG/DL Urine Leukocyte Esterase NEGATIVE NEGATIVE Urine RBC (Auto) 5+ H NEGATIVE Urine RBC 25-50 H /HPF Urine WBC RARE /HPF Urine Squamous Epithelial Cells 2-5 /HPF Urine Crystals NONE /LPF Urine Bacteria NEGATIVE /HPF Urine Casts NONE /LPF Urine Mucus NEGATIVE /LPF Urine Culture Indicated NO White Blood Count 11.1 H 4.3-11.0 10^3/uL Red Blood Count 4.69 4.35-5.85 10^6/uL Hemoglobin 14.7 13.3-17.7 G/DL Hematocrit 44 40-54 % Mean Corpuscular Volume 93 80-99 FL Mean Corpuscular Hemoglobin 31 25-34 PG Mean Corpuscular Hemoglobin Concent 34 32-36 G/DL Red Cell Distribution Width 13.1 10.0-14.5 % Platelet Count 291 130-400 10^3/uL Mean Platelet Volume 10.6 H 7.4-10.4 FL Neutrophils (%) (Auto) 70 42-75 % Lymphocytes (%) (Auto) 14 12-44 % Monocytes (%) (Auto) 10 0-12 % Eosinophils (%) (Auto) 5 0-10 % Basophils (%) (Auto) 1 0-10 % Neutrophils # (Auto) 7.7 1.8-7.8 X 10^3 Lymphocytes # (Auto) 1.6 1.0-4.0 X 10^3 Monocytes # (Auto) 1.2 H 0.0-1.0 X 10^3 Eosinophils # (Auto) 0.6 H 0.0-0.3 10^3/uL Basophils # (Auto) 0.1 0.0-0.1 10^3/uL Sodium Level 141 135-145 MMOL/L Potassium Level 3.8 3.6-5.0 MMOL/L Chloride Level 105 98-107 MMOL/L Carbon Dioxide Level 26 21-32 MMOL/L Anion Gap 10 5-14 MMOL/L Blood Urea Nitrogen 17 7-18 MG/DL Creatinine 1.16 0.60-1.30 MG/DL Estimat Glomerular Filtration Rate > 60 BUN/Creatinine Ratio 15 Glucose Level 129 H 70-105 MG/DL Calcium Level 10.0 8.5-10.1 MG/DL Corrected Calcium 9.8 8.5-10.1 MG/DL Total Bilirubin 0.6 0.1-1.0 MG/DL Aspartate Amino Transf (AST/SGOT) 20 5-34 U/L Alanine Aminotransferase (ALT/SGPT) 20 0-55 U/L Alkaline Phosphatase 113 40-136 U/L Total Protein 7.5 6.4-8.2 GM/DL Albumin 4.3 3.2-4.5 GM/DL Amylase Level 62 25-125 U/L Lipase 35 8-78 U/L My Orders Orders - VI BLAKELY DO Ct Abd/Pelvis Wo(Kidney Stone) (08/07/18 17:59) Abdomen/Kub 1view (08/07/18 17:59) Amylase (08/07/18 17:59) Cbc With Automated Diff (08/07/18 17:59) Comprehensive Metabolic Panel (08/07/18 17:59) Lipase (08/07/18 17:59) Ua Culture If Indicated (08/07/18 17:59) Saline Lock/Iv-Start (08/07/18 17:59) Lactated Ringers (Lr 1000 Ml Iv Solution (08/07/18 17:59) Ketorolac Injection (Toradol Injection) (08/07/18 17:59) Medications Given in ED Current Medications Medications Dose Ordered Sig/Gilbert Route Start Time Stop Time Status Last Admin Dose Admin Lactated Ringer's 1,000 ml @ 0 mls/hr Q0M ONCE IV 08/07/18 17:59 08/07/18 18:02 DC 08/07/18 18:15 0 MLS/HR Vital Signs/I&O 08/07/18 17:44 Temp 96.0 Pulse 73 B/P (MAP) 155/77 (103) Blood Pressure Mean: 103 Progress Progress Note : Progress Note PAIN SIGNIFICANTLY IMPROVED WITH TORADOL--NOW JUST A MILD DULL ACHE Departure Impression Primary Impression: Left ureteral calculus Disposition: HOME, SELF-CARE Condition: Improved Departure-Patient Inst. Referrals: SAMARA BEAR MD (PCP/Family) Primary Care Physician CESARIO MARTINEZ MD Patient Instructions: Kidney Stones (DC) Add. Discharge Instructions: LOTS OF FLUIDS STRAIN ALL URINE FOLLOW UP WITH DR. MARTINEZ ON FRIDAY FOR FURTHER CARE, RETURN TO ER IF WORSE All discharge instructions reviewed with patient and/or family. Voiced understanding. Scripts Hydrocodone Bit/Acetaminophen (LORTAB 7.5 MG TABLET) 1 Ea Tablet 1 EA PO Q4H PRN for PAIN-MODERATE MDD 6, #20 TAB Prov: VI BLAKELY K DO 08/07/18 Ketorolac Tromethamine (Ketorolac Tromethamine) 10 Mg Tablet 10 MG PO Q6H for Pain, #15 TAB Prov: VI BLAKELY K DO 08/07/18 Ondansetron (Ondansetron Odt) 4 Mg Tab.rapdis 4 MG PO Q4H for Nausea/Vomiting, #10 TAB Prov: PAGE BLAKELYA K DO 08/07/18 Nitrofurantoin Monohyd/M-Cryst (Macrobid 100 mg Capsule) 100 Mg Capsule 100 MG PO BID, #20 CAP Prov: PAGE BLAKELYA K DO 08/07/18 REDDYVI K DO Aug 07, 2018 18:07
[2018-08-07 18:08] LABS: BASOPHILS # (AUTO) 0.1 10^3/uL (0.0-0.1); BASOPHILS % (AUTO) 1 % (0-10); EOSINOPHILS # (AUTO) 0.6 10^3/uL (0.0-0.3); EOSINOPHILS % (AUTO) 5 % (0-10); HEMATOCRIT 44 % (40-54); HEMOGLOBIN 14.7 G/DL (13.3-17.7); LYMPHOCYTES # (AUTO) 1.6 X 10^3 (1.0-4.0); LYMPHOCYTES % (AUTO) 14 % (12-44); MEAN CORPUSCULAR HEMOGLOBIN 31 PG (25-34); MEAN CORPUSCULAR HGB CONC 34 G/DL (32-36); MEAN CORPUSCULAR VOLUME 93 FL (80-99); MEAN PLATELET VOLUME 10.6 FL (7.4-10.4); MONOCYTES # (AUTO) 1.2 X 10^3 (0.0-1.0); MONOCYTES % (AUTO) 10 % (0-12); NEUTROPHILS # (AUTO) 7.7 X 10^3 (1.8-7.8); NEUTROPHILS % (AUTO) 70 % (42-75); PLATELET COUNT 291 10^3/uL (130-400); RED CELL DISTRIBUTION WIDTH 13.1 % (10.0-14.5); WHITE BLOOD COUNT 11.1 10^3/uL (4.3-11.0)
[2018-08-07 18:09] LABS: BILIRUBIN,URINE NEGATIVE (NEGATIVE); CLARITY,URINE CLEAR; COLOR,URINE YELLOW; GLUCOSE, URINE (UA) NEGATIVE (NEGATIVE); KETONES,URINE NEGATIVE (NEGATIVE); LEUKOCYTE ESTERASE ,URINE NEGATIVE (NEGATIVE); NITRITE,URINE NEGATIVE (NEGATIVE); PH,URINE 7 (5-9); PROTEIN,URINE NEGATIVE (NEGATIVE); UROBILINOGEN,URINE NORMAL (NORMAL)
[2018-08-07 18:22] LABS: BACTERIA,URINE NEGATIVE /HPF; RBC,URINE 25-50 /HPF; WBC,URINE RARE /HPF
[2018-08-07 18:27] LABS: ALANINE AMINOTRANSFERASE 20 U/L (0-55); ALBUMIN 4.3 GM/DL (3.2-4.5); ALKALINE PHOSPHATASE 113 U/L (40-136); AMYLASE 62 U/L (25-125); BILIRUBIN,TOTAL 0.6 MG/DL (0.1-1.0); BUN/CREATININE RATIO 15; CARBON DIOXIDE 26 MMOL/L (21-32); CHLORIDE 105 MMOL/L (98-107); CREATININE SERUM 1.16 MG/DL (0.60-1.30); GFR ESTIMATED > 60; GLUCOSE 129 MG/DL (70-105); LIPASE 35 U/L (8-78); POTASSIUM 3.8 MMOL/L (3.6-5.0); SODIUM 141 MMOL/L (135-145); TOTAL PROTEIN 7.5 GM/DL (6.4-8.2)
--- NOTE | 2018-08-07 18:49 | Diagnostic Imaging Report ---
INDICATION: Left-sided flank pain. FINDINGS: Supine view the abdomen demonstrates tiny calculi overlying the right kidney. No definite calculi are seen on the left side. Bowel gas pattern is normal. IMPRESSION: There are small calculi overlying the right kidney. Dictated by: Dictated on workstation # [id number]
--- NOTE | 2018-08-07 19:04 | Diagnostic Imaging Report ---
PROCEDURE: CT urinary tract, rule out kidney stone. TECHNIQUE: Multiple contiguous axial images were obtained through the abdomen and pelvis without the use of intravenous contrast. Auto Exposure Controls were utilized during the CT exam to meet ALARA standards for radiation dose reduction. INDICATION: Kidney stone. COMPARISON STUDY: CT of the abdomen and pelvis from 02/19/2017. FINDINGS: There is 4.3 mm calculus in the mid left ureter. Inflammation is seen around the kidney and left ureter with some [id number] left-sided hydronephrosis. Tiny calculi are present in the left renal parenchyma. Several small 5-6 mm calculi are present in the right kidney. Urinary bladder appears normal. Prostatic calcifications are again identified. There is a small hiatal hernia. Lung bases are clear. The liver, gallbladder, spleen, pancreas, and adrenal glands are normal. There is mild arterial sclerosis. Degenerative changes are present in the spine. IMPRESSION: 1. There is an obstructing 4.3 mm calculus in the mid left ureter with [id number] left hydronephrosis and inflammation around the kidney and ureter. 2. Bilateral renal lithiasis. 3. There is a small hiatal hernia. Dictated by: Dictated on workstation # [id number]
[2018-08-07] MEDS ORDERED: HYDR-34 PO (19:21)
[2018-08-07] MEDS ORDERED: NITR-65 PO (19:21)
[2018-08-07] MEDS ORDERED: ONDA4TAB11 PO (19:21)
[2018-08-07] MEDS ORDERED: KETO10TA PO (19:21)
[2018-08-07 19:35] VITALS: BP 162/72
== END 2018-08-07 19:37 | disposition home or self-care (01) ==
LOC: EDUNIT# 17:38 → ER 17:39
DX: N13.2 Hydronephrosis with renal and ureteral calculous obstruction (principal); E78.00 Pure hypercholesterolemia, unspecified; I10 Essential (primary) hypertension; Z82.49 Family history of ischemic heart disease and other diseases of the circulatory system; Z80.0 Family history of malignant neoplasm of digestive organs; Z86.010 Personal history of colon polyps; Z87.442 Personal history of urinary calculi; Z87.891 Personal history of nicotine dependence; Z87.19 Personal history of other diseases of the digestive system; Z98.890 Other specified postprocedural states; Z90.49 Acquired absence of other specified parts of digestive tract
CPT/HCPCS: 36415; 74018; 74176; 80053; 81000; 82150; 83690; 85025

== ENCOUNTER → 2018-08-10 | Outpatient (CLI) | payer BC, MEDICARE ==
[~2018-08-10] MED LIST changes: +HYDR-34 PO; +NITR-65 PO; +ONDA4TAB11 PO
--- NOTE | 2018-08-10 20:17 | Diagnostic Imaging Report ---
EXAMINATION: Supine abdomen at 2:25 p.m. INDICATION: Left flank pain. FINDINGS: The plain film exam of 08/07/2018 noted small calculi overlying the right kidney. The subsequent CT abdomen/pelvis exam of the same day did reveal that there was partial obstruction of the left collecting system due to a 4.3 mm calculus in the mid portion of left ureter. There were also nonobstructive calculi within the left kidney. On this exam, the obstructive calculus within the left kidney is difficult to appreciate. The overall appearance of the abdomen is otherwise no different. The suspected phleboliths low in the pelvis seen previously are again visualized and no different. IMPRESSION: 1. The obstructive calculus within the left ureter seen on the prior study is difficult to visualize on this exam. 2. The overall appearance of the abdomen and pelvis has not changed significantly otherwise. Dictated by: Dictated on workstation # [id number]
== END ==
LOC: RAD 14:15
PROVIDERS: ATTEND Urology
DX: N20.1 Calculus of ureter (principal)
CPT/HCPCS: 74018

== ENCOUNTER → 2018-08-20 | Outpatient (CLI) | payer BC, MEDICARE ==
--- NOTE | 2018-08-20 11:40 | Diagnostic Imaging Report ---
Indication: Left ureteral calculus KUB 9:55 AM There are some tiny calcifications projecting over the right kidney that could be calculi. There are 3 or 4 stones each measuring about 2 mm in diameter. There are some phleboliths in the pelvis. There is prostate calcification. There is no appreciable ureteral calculus. Impression: Right nephrolithiasis. Dictated by: Dictated on workstation # [id number]
== END ==
LOC: RAD 09:46
PROVIDERS: ATTEND Urology
DX: N20.2 Calculus of kidney with calculus of ureter (principal)
CPT/HCPCS: 74018

== ENCOUNTER 2018-08-25 09:55 | Outpatient (CLI) | payer BC, MEDICARE ==
[~2018-08-25] VITALS: Ht 175.3 cm; Wt 94.3 kg
[2018-08-25] MEDS ORDERED: TERA2CAP4 PO (10:11)
[2018-08-25] MEDS ORDERED: ASPI-586 PO (10:11)
[2018-08-25] MEDS ORDERED: TAMS0.4C98 PO (10:11)
[2018-08-26] MEDS ORDERED: CIPR-225 PO (08:47)
[2018-08-26] MEDS ORDERED: HYDR-3870 PO (08:47)
== END 2018-08-25 10:36 | disposition home or self-care (01) ==
LOC: PREOP 09:55
PROVIDERS: ATTEND Urology
DX: Z01.818 Encounter for other preprocedural examination (principal)

== ENCOUNTER 2018-08-26 06:08 | Day surgery (SDC) | payer BC, MEDICARE ==
[~2018-08-26] VITALS: Ht 175.3 cm; Wt 92.5 kg
[2018-08-26] VITALS (10 sets, daily range): BP systolic 140–176; BP diastolic 72–87
[~2018-08-26 06:08] MED LIST changes: +ASPI-586 PO; +TERA2CAP4 PO
--- OUTSIDE RECORDS SUMMARY | 2018-08-26 06:15 | XMS REPORT | CCD ---
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 Name Role Phone PP Unavailable CCM Unavailable Summary Purpose Interface Exchange Insurance Providers Payer name Policy type / Coverage type Covered republican ID Effective Begin Date Effective End Date Blue Cross Blue Shield [facility] Blue Cross/Blue Shield [id number] Unknown WPS Medicare Part B Blue Cross/Blue Shield [id number] Unknown Family history Father Diagnosis Age At Onset Hyperlipidemia Unknown Heart Attack Unknown Hypertension Unknown Runs in the family Diagnosis Age At Onset Hypertension Unknown Mother Diagnosis Age At Onset Diabetes mellitus Type 2 Unknown Cancer Unknown Social History Social History Element Codes Description Effective Dates Marital status Unknown Leah 08/27/2016 Number of children Unknown 1 4 adopted 11/23/[address]: 5745317 Former smoker 1970- quit 11/23/2014 Alcohol history Unknown occasionally drinks alcohol 11/23/2014 Living arrangements Unknown House 09/20/2014 Employment Unknown 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/20/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 Allergies, Adverse Reactions, Alerts Substance Reaction Codes Entered Date Inactivated Date Status * NO KNOWN DRUG ALLERGIES Unknown 09/20/2014 No Inactive Date Active Past Medical History Illness Codes Condition Status Onset Date Resolved Date Essential (primary) hypertension ICD-9: 401.1 ICD-10: I10 Active 05/30/2016 Unknown 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 Active 06/22/2018 Unknown Low back pain ICD-9: 724.2 ICD-10: M54.5 Active 06/22/2018 Unknown Type 2 diabetes mellitus without complications ICD-9: 250.00 ICD-10: E11.9 Active 10/06/2017 Unknown Mixed hyperlipidemia ICD-9: 272.4 ICD-10: E78.2 Active 11/22/2014 Unknown Mixed hyperlipidemia ICD-9: 272.2 ICD-10: E78.2 Active 10/06/2017 Unknown Rash and other nonspecific skin eruption ICD-9: 782.1 ICD-10: R21 Active 01/16/2017 Unknown Impaired fasting glucose ICD-9: 790.21 ICD-10: R73.01 Active 05/21/2017 Unknown Other abnormal glucose ICD-9: 790.29 ICD-10: R73.09 Active 01/16/2017 Unknown Pain in right knee ICD -9: 719.46 ICD-10: M25.561 Active 04/18/2016 Unknown Hyperglycemia, unspecified ICD-9: 790.29 ICD-10: R73.9 Active 10/02/2015 Unknown Acute recurrent maxillary sinusitis ICD-9: 461.0 ICD-10: J01.01 Active 08/27/2016 Unknown Pain in left knee ICD- 9: 719.46 ICD-10: M25.562 Active 05/30/2016 Unknown Essential (primary) hypertension ICD-9: 401.9 ICD-10: I10 Active 04/18/2016 Unknown Changes in skin texture ICD-9: 782.8 ICD-10: R23.4 Active 04/02/2015 Unknown Diabetes Unknown Active 11/23/2014 Unknown Hyperlipidemia Unknown Active 11/23/2014 Unknown Hypertension Unknown Active 11/23/2014 Unknown Osteoarthritis Unknown Active 11/23/2014 Unknown DIABETES TYPE II ICD-9 : 250.00 Active 11/22/2014 Unknown ESSENTIAL HYPERTENSION ICD-9: 401.9 Active 11/22/2014 Unknown HYPERLIPIDEMIA ICD-9: 272.4 Active 11/22/2014 Unknown OSTEOARTH NOS-UNSPEC ICD-9: 715.90 Active 11/22/2014 Unknown ACUTE BRONCHITIS ICD-9 : 466.0 Active 09/19/2014 Unknown ACUTE MAXILLARY SINUSITIS ICD-9: 461.0 Active 09/19/2014 Unknown Dyspnea ICD-9: 786.09 Active 09/19/2014 Unknown Sinusitis ICD-9: 473.9 Active 09/19/2014 Unknown Problems Condition Codes Effective Dates Condition Status Essential (primary) hypertension ICD-9: 401.1 ICD-10: I10 05/30/2016 Active 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 06/22/2018 Active Low back pain ICD-9: 724.2 ICD-10: M54.5 06/22/2018 Active Type 2 diabetes mellitus without complications ICD-9: 250.00 ICD-10: E11.9 10/06/2017 Active Mixed hyperlipidemia ICD-9: 272.4 ICD-10: E78.2 11/22/2014 Active Mixed hyperlipidemia ICD-9: 272.2 ICD-10: E78.2 10/06/2017 Active Rash and other nonspecific skin eruption ICD-9: 782.1 ICD-10: R21 01/16/2017 Active Impaired fasting glucose ICD-9: 790.21 ICD-10: R73.01 05/21/2017 Active Other abnormal glucose ICD-9: 790.29 ICD-10: R73.09 01/16/2017 Active Pain in right knee ICD -9: 719.46 ICD-10: M25.561 04/18/2016 Active Hyperglycemia, unspecified ICD-9: 790.29 ICD-10: R73.9 10/02/2015 Active Acute recurrent maxillary sinusitis ICD-9: 461.0 ICD-10: J01.01 08/27/2016 Active Pain in left knee ICD- 9: 719.46 ICD-10: M25.562 05/30/2016 Active Essential (primary) hypertension ICD-9: 401.9 ICD-10: I10 04/18/2016 Active Changes in skin texture ICD-9: 782.8 ICD-10: R23.4 04/02/2015 Active Diabetes Unknown 11/23/2014 Active Hyperlipidemia Unknown 11/23/2014 Active Hypertension Unknown 11/23/2014 Active Osteoarthritis Unknown 11/23/2014 Active DIABETES TYPE II ICD-9 : 250.00 11/22/2014 Active ESSENTIAL HYPERTENSION ICD-9: 401.9 11/22/2014 Active HYPERLIPIDEMIA ICD-9: 272.4 11/22/2014 Active OSTEOARTH NOS-UNSPEC ICD-9: 715.90 11/22/2014 Active ACUTE BRONCHITIS ICD-9 : 466.0 09/19/2014 Active ACUTE MAXILLARY SINUSITIS ICD-9: 461.0 09/19/2014 Active Dyspnea ICD-9: 786.09 09/19/2014 Active Sinusitis ICD-9: 473.9 09/19/2014 Active Medications Medication Codes Instructions Start Date Stop Date Status Fill Instructions mupirocin 2 % topical cream RxNorm: 577077 1 Application TOP BID 08/20/2018 10/18/2018 Active Toprol XL 25 mg tablet,extended release RxNorm: 769720 Tablet(s) TAKE 1 TABLET BY MOUTH EVERY DAY 08/17/2018 08/11/2019 Active mupirocin 2 % topical cream RxNorm: 098344 1 Application TOP BID 07/30/2018 08/19/2018 Inactive mupirocin 2 % topical cream RxNorm: 771389 1 Application TOP BID 07/14/2018 07/29/2018 Inactive Lipitor 20 mg tablet RxNorm: 852575 TAKE ONE TABLET BY MOUTH DAILY AT BEDTIME 05/18/2018 05/12/2019 Active Generic For:LIPITOR 20MG 05/18/2018 8:43:47 AM triamterene 37.5 mg-hydrochlorothiazide 25 mg capsule RxNorm: 738463 TAKE 1 CAPSULE BY MOUTH DAILY 05/18/20182019 Active Generic For:DYAZIDE 37.5-25 05/18/2018 8:43:43 AM Toprol XL 25 mg tablet,extended release RxNorm: 983441 TAKE 1 TABLET BY MOUTH EVERY DAY 05/18/2018 08/16/2018 Inactive Generic For:TOPROL XL 25MG 05/18/2018 9: 31:21 AM betamethasone valerate 0.1 % topical ointment RxNorm: 636307 APPLY TOPICALLY TO SKIN LESIONS/RASH ON LEGS, ARMS AND BACK THREE TIMES DAILY 05/23/2018 Inactive 03/25/2018 10:44:47 AM terazosin 2 mg capsule RxNorm: 125821 TAKE 1 CAPSULE BY MOUTH DAILY 02/16/2018 08/14/2018 Inactive 02/16/2018 9:02:27 AM Toprol XL 25 mg tablet,extended release RxNorm: 008143 TAKE 1 TABLET BY MOUTH EVERY DAY 02/16/2018 05/17/2018 Inactive Generic For:TOPROL XL 25MG 02/16/2018 9: 19:34 AM terazosin 2 mg capsule RxNorm: 834872 TAKE 1 CAPSULE BY MOUTH DAILY 02/16/2018 02/15/2018 Inactive betamethasone valerate 0.1 % topical ointment RxNorm: 798171 APPLY TOPICALLY TO SKIN LESIONS/RASH ON LEGS, ARMS AND BACK THREE TIMES DAILY 02/09/2018 Inactive 12/12/2017 11:42:38 AM Toprol XL 25 mg tablet,extended release RxNorm: 039077 TAKE 1 TABLET BY MOUTH EVERY DAY 11/18/2017 02/15/2018 Inactive Generic For:TOPROL XL 25MG 11/18/2017 9: 12:07 AM oxycodone 5 mg tablet RxNorm: 0366334 1 Tablet(s) PO BID 201711/04/2017 Inactive betamethasone valerate 0.1 % topical ointment RxNorm: 568551 APPLY TOPICALLY TO SKIN LESIONS/RASH ON LEGS, ARMS AND BACK THREE TIMES DAILY 10/31/2017 Inactive 09/01/2017 4:21:36 PM terazosin 2 mg capsule RxNorm: 307683 TAKE 1 CAPSULE BY MOUTH DAILY 08/20/2017 02/15/2018 Inactive 08/20/2017 8:54:09 AM Toprol XL 25 mg tablet,extended release RxNorm: 589694 TAKE 1 TABLET BY MOUTH EVERY DAY 08/20/2017 11/17/2017 Inactive Generic For:TOPROL XL 25MG 08/20/2017 8: 58:18 AM betamethasone valerate 0.1 % topical ointment RxNorm: 882805 1 Application TOP TID apply to skin lesions/rash on legs, arms, back 201708/25/2017 Inactive Lipitor 20 mg tablet RxNorm: 718404 TAKE ONE TABLET BY MOUTH DAILY AT BEDTIME 05/22/2017 05/16/2018 Inactive Generic For:LIPITOR 20MG 05/22/2017 9:16:26 AM triamterene 37.5 mg-hydrochlorothiazide 25 mg capsule RxNorm: 721252 TAKE 1 CAPSULE BY MOUTH DAILY 05/22/20172018 Inactive Generic For:DYAZIDE 37.5-25 05/22/2017 9:16:22 AM betamethasone valerate 0.1 % topical ointment RxNorm: 323015 1 Application TOP TID apply to skin lesions/rash on legs, arms, back 201706/19/2017 Inactive terazosin 2 mg capsule RxNorm: 639686 TAKE 1 CAPSULE BY MOUTH DAILY 02/19/2017 08/17/2017 Inactive 02/19/2017 11:33:02 AM clobetasol 0.05 % topical cream RxNorm: 778520 1 Application TOP daily as needed 01/17/2017 No Stop Date Active mupirocin 2 % topical cream RxNorm: 964916 1 Application TOP BID 01/16/2017 02/14/2017 Inactive terazosin 2 mg capsule RxNorm: 359183 1 Capsule(s) PO daily 02/18/2017 Inactive oxycodone 5 mg tablet RxNorm: 5842164 1 Tablet(s) PO BID 201610/10/2016 Inactive ceftriaxone 500 mg solution for injection RxNorm: 1562035 1 Milliliter(s) Inj 08/27/2016 08/27/2016 Inactive azithromycin 250 mg tablet RxNorm: 344555 1 Tablet(s) PO UD take two pills on day #1, then one pill daily x 4 days 08/27/2016 01/15/2017 Inactive Toprol XL 25 mg tablet,extended release RxNorm: 207185 1 Tablet(s) PO daily 08/26/2016 12/23/2016 Inactive oxycodone 5 mg tablet RxNorm: 9722926 1 Tablet(s) PO BID 201607/27/2016 Inactive Lipitor 20 mg tablet RxNorm: 771512 1 Tablet(s) QHS TAKE 1 TABLET BY MOUTH ONCE DAILY AT BEDTIME. 05/27/2016 05/21/2017 Inactive Generic For:LIPITOR 20MG 2014 11:51:16 AM N O T I C E PRESCRIPTION PREVIOUSLY AUTHORIZED BY DOCTOR: NICHOLE ESPANA triamterene 37.5 mg-hydrochlorothiazide 25 mg capsule RxNorm: 196821 1 Capsule(s) PO daily 05/27/2016 05/21/2017 Inactive terazosin 2 mg capsule RxNorm: 641508 1 Capsule(s) PO daily 08/19/2016 Inactive terazosin 2 mg capsule RxNorm: 243660 1 Capsule(s) PO daily 04/21/2016 Inactive terazosin 5 mg capsule RxNorm: 908862 1/2 Tablet(s) PO QPM 04/21/2016 Inactive Toprol XL 25 mg tablet,extended release RxNorm: 142525 1 Tablet(s) PO daily 04/16/2016 04/15/2016 Inactive Toprol XL 25 mg tablet,extended release RxNorm: 810951 1 Tablet(s) PO daily 04/16/2016 08/13/2016 Inactive pantoprazole 40 mg tablet,delayed release RxNorm: 682037 1 Tablet(s) PO daily 04/16/2016 04/15/2016 Inactive pantoprazole 40 mg tablet,delayed release RxNorm: 416104 1 Tablet(s) PO daily 04/16/2016 01/15/2017 Inactive Toprol XL 50 mg tablet,extended release RxNorm: 722162 1 Tablet(s) PO daily 02/28/2016 04/15/2016 Inactive terazosin 5 mg capsule RxNorm: 987519 1 Tablet(s) PO QPM 201504/18/2016 Inactive oxycodone 5 mg tablet RxNorm: 7867813 1 Tablet(s) PO UD 1/2 at 3pm, 1 pill at 9pm and may take up to 2 pills bid if needed. 01/03/2016 06/27/2016 Inactive Toprol XL 50 mg tablet,extended release RxNorm: 721256 1 Tablet(s) PO daily 11/15/2015 02/27/2016 Inactive terazosin 5 mg capsule RxNorm: 287135 1 Tablet(s) PO QPM 201501/01/2016 Inactive Lipitor 20 mg tablet RxNorm: 249421 1 Tablet(s) QHS TAKE 1 TABLET BY MOUTH ONCE DAILY AT BEDTIME. 06/01/2015 05/25/2016 Inactive Generic For:LIPITOR 20MG 2014 11:51:16 AM N O T I C E PRESCRIPTION PREVIOUSLY AUTHORIZED BY DOCTOR: NICHOLE ESPANA Kenalog 40 mg/mL suspension for injection RxNorm: 8582870 1 Milliliter(s) Inj 05/25/2015 05/25/2015 Inactive terazosin 5 mg capsule RxNorm: 001116 1 Tablet(s) PO QPM 201407/05/2015 Inactive Toprol XL 50 mg tablet,extended release RxNorm: 794572 1 Tablet(s) PO daily 05/04/2015 10/30/2015 Inactive terazosin 5 mg capsule RxNorm: 045269 1 Tablet(s) PO QPM 201405/03/2015 Inactive triamterene 37.5 mg-hydrochlorothiazide 25 mg capsule RxNorm: 794526 1 Capsule(s) PO daily 04/26/2015 05/26/2016 Inactive Voltaren 1 % topical gel RxNorm: 502208 4 Gram(s) TOP QID to knees 04/19/2015 06/21/2018 Inactive Lipitor 20 mg tablet RxNorm: 792569 Tablet(s) TAKE 1 TABLET BY MOUTH ONCE DAILY AT BEDTIME. 04/13/2015 05/31/2015 Inactive Generic For:LIPITOR 20MG 03/24/2015 11: 51:16 AM N O T I C E PRESCRIPTION PREVIOUSLY AUTHORIZED BY DOCTOR:NICHOLE ESPANA Lipitor 20 mg tablet RxNorm: 291990 TAKE 1 TABLET BY MOUTH ONCE DAILY AT BEDTIME. 03/24/2015 04/12/2015 Inactive Generic For:LIPITOR 20MG 03/24/2015 11:51:16 AM N O T I C E PRESCRIPTION PREVIOUSLY AUTHORIZED BY DOCTOR:NICHOLE ESPANA Lipitor 20 mg tablet RxNorm: 623354 TAKE 1 TABLET BY MOUTH ONCE DAILY AT BEDTIME. 03/24/2015 03/23/2015 Inactive Generic For:LIPITOR 20MG 03/24/2015 11:51:16 AM N O T I C E PRESCRIPTION PREVIOUSLY AUTHORIZED BY DOCTOR:NICHOLE ESPANA Lipitor 20 mg tablet RxNorm: 579254 1 Tablet(s) PO daily 201403/23/2015 Inactive Toprol XL 50 mg tablet,extended release RxNorm: 975911 1 Tablet(s) PO daily 03/08/2015 05/03/2015 Inactive Toprol XL 50 mg tablet,extended release RxNorm: 220962 1 Tablet(s) PO daily 03/08/2015 03/07/2015 Inactive Toprol XL 50 mg tablet,extended release RxNorm: 395531 1 Tablet(s) PO daily 03/07/2015 03/07/2015 Inactive triamterene 37.5 mg-hydrochlorothiazide 25 mg capsule RxNorm: 277989 1 Capsule(s) PO daily 01/26/2015 04/25/2015 Inactive Hytrin 5 mg tablet RxNorm: 439480 1 Tablet(s) PO QPM 201403/25/2015 Inactive triamterene 37.5 mg-hydrochlorothiazide 25 mg capsule RxNorm: 670693 1 Capsule(s) PO daily 01/25/2015 01/25/2015 Inactive Voltaren 1 % topical gel RxNorm: 548763 4 Gram(s) TOP QID to knees 11/23/2014 02/20/2015 Inactive aspirin 81 mg chewable tablet RxNorm: 830736 1 Tablet(s) PO daily 09/20/2014 12/02/2017 Inactive azithromycin 250 mg tablet RxNorm: 966881 2 Tablet(s) PO on day #1, then 1 pill on days #2-5 09/20/2014 04/02/2015 Inactive [SAVINGS FOR NON-COVERED DRUGS -- BIN: [id number], PCN: [id number], Group: XXXXX, ID# [id number], Questions: . THIS IS NOT INSURANCE.] triamterene 37.5 mg-hydrochlorothiazide 25 mg capsule RxNorm: 862987 1 Capsule(s) PO daily 09/20/2014 01/24/2015 Inactive Keflex 500 mg capsule RxNorm: 999378 1 Capsule(s) PO TID 201409/26/2014 Inactive PLEASE CALL PT TO LET HIM KNOW THAT THE ANTIBIOTICS ARE READY FOR [employer]GER - START ON 09/21/14 Hytrin 5 mg tablet RxNorm: 423756 1 Tablet(s) PO QPM 201401/24/2015 Inactive Vitamin C 500 mg chewable tablet RxNorm: 640140 1 Tablet(s) PO daily 09/20/2014 08/27/2016 Inactive Toprol XL 50 mg tablet,extended release RxNorm: 646313 1 Tablet(s) PO daily 09/20/2014 03/06/2015 Inactive prednisone 20 mg tablet RxNorm: 812173 3 Tablet(s) PO daily 09/24/2014 Inactive [SAVINGS FOR NON-COVERED DRUGS -- BIN:898175, PCN: [id number], Group: XXXXX, ID# XXXXXXX, Questions: . THIS IS NOT INSURANCE.] Vitamin D3 1,000 unit capsule RxNorm: 092811 1 Capsule(s) PO daily 09/20/2014 08/27/2016 Inactive fish oil-dha-epa 1,200 mg-144 mg-216 mg capsule RxNorm: 1 Capsule(s) PO daily 09/20/2014 08/27/2016 Inactive Lipitor 20 mg tablet RxNorm: 612307 1 Tablet(s) PO daily 201403/23/2015 Inactive naproxen sodium 220 mg tablet RxNorm: 805320 1 Tablet(s) PO BID as needed for pain 09/20/2014 01/02/2016 Inactive penicillin V potassium 500 mg tablet RxNorm: 080834 1 Tablet(s) PO daily - Prescribed by Dr. Adam No Start Date Active Fish Oil 360 mg-1,200 mg capsule RxNorm: 049206 1 Capsule(s) PO daily No Start Date Active Vitamin D3 2,000 unit tablet RxNorm: 980677 1 Tablet(s) PO daily No Start Date Active Stool Softener 100 mg capsule RxNorm: 7337671 1 Capsule(s) PO BID No Start Date Active Probiotic oral RxNorm : 6205 oral No Start Date Active tamsulosin 0.4 mg capsule RxNorm: 162024 1 Capsule(s) PO daily No Start Date Active Vitamin C 1,000 mg tablet RxNorm: 241555 1 Tablet(s) PO daily No Start Date Active rifampin 150 mg capsule RxNorm: 851740 1 Capsule(s) PO daily No Start Date 08/26/2016 Inactive naproxen 250 mg tablet RxNorm: 745971 Tablet(s) PO BID as needed No Start Date 06/21/2018 Inactive calcium carbonate 550 mg chewable tablet RxNorm: 200643 1 Tablet(s) PO QID as needed No Start Date 08/26/2016 Inactive clobetasol 0.05 % topical cream RxNorm: 422869 1 Application TOP daily as needed No Start Date 01/16/2017 Inactive Medication Administered Medication Codes Instructions Start Date Status ceftriaxone 500 mg solution for injection RxNorm: 1635528 1Milliliter 08/27/2016 No longer Active Kenalog 40 mg/mL suspension for injection RxNorm: 4798999 1Milliliter 05/25/2015 No longer Active Immunizations Vaccine Codes Date Status Influenza CVX: 141 04/06/2016 completed Assessments Condition Codes Effective Dates Type 2 diabetes mellitus without complications ICD-10: E11.9 ICD-9: 250.00 06/22/2018 Low back pain ICD-10: M54.5 ICD-9: 724.2 06/22/2018 Excoriation (skin-picking) disorder ICD-10: F42.4 ICD-9: 307.9 06/22/2018 Essential (primary) hypertension ICD-10: I10 ICD-9: 401.1 06/22/2018 Mixed hyperlipidemia ICD-10: E78.2 ICD-9: 272.4 02/18/2018 Mixed hyperlipidemia ICD-10: E78.2 ICD-9: 272.2 10/06/2017 Rash and other nonspecific skin eruption ICD-10: R21 ICD-9: 782.1 06/23/2017 Other abnormal glucose ICD-10: R73.09 ICD-9: 790.29 05/21/2017 Impaired fasting glucose ICD-10: R73.01 ICD-9: 790.21 05/21/2017 Pain in right knee ICD-10: M25.561 ICD-9: 719.46 05/21/2017 Acute recurrent maxillary sinusitis ICD-10: J01.01 ICD-9: 461.0 08/27/2016 Pain in left knee ICD-10: M25.562 ICD-9: 719.46 05/30/2016 Essential (primary) hypertension ICD-10: I10 ICD-9: 401.9 04/19/2016 Hyperglycemia, unspecified ICD-10: R73.9 ICD-9: 790.29 10/03/2015 Changes in skin texture ICD-10: R23.4 ICD-9: 782.8 04/03/2015 ESSENTIAL HYPERTENSION ICD-9: 401.9 11/23 DIABETES TYPE II ICD-9: 250.00 2014 HYPERLIPIDEMIA ICD-9: 272.4 11/23/2014 OSTEOARTH NOS-UNSPEC ICD-9: 715.90 2014 ACUTE MAXILLARY SINUSITIS ICD-9: 461.0 Dyspnea ICD-9: 786.09 09/20/2014 Sinusitis ICD-9: 473.9 09/20/2014 ACUTE BRONCHITIS ICD-9: 466.0 09/20/2014 Reason For Visit Reason For Visit Effective Dates Notes hypertension 06/22/2018 hypertension 02/18/2018 hypertension 10/06/2017 sores 06/23/2017 hypertension 05/21/2017 hypertension 01/16/2017 hypertension 08/27/2016 hypertension 05/30/2016 hypertension 04/19/2016 knee pain 01/03/2016 knee pain 10/03/2015 knee pain 05/25/2015 knee pain 04/03/2015 knee pain 11/23/2014 sinus congestion 09/20/2014 Results Observation Observation Code Item Item Code Result Date Lipid Ord30 CHOL 121 mg/dL 10/03/2017 Lipid Ord30 HDL 42.0 mg/dl 10/03/2017 Lipid Ord30 TRIG 72 mg/dL 10/03/2017 Lipid Ord30 LDL 65 mg/dL 10/03/2017 Lipid Ord30 C/HDL 2.9 Ratio 10/03/2017 Cbc With Differential Ord2 WBC 7.01 K/ul 10/03/2017 Cbc With Differential Ord2 RBC 4.72 M/ul 10/03/2017 Cbc With Differential Ord2 HGB 14.7 g/dl 10/03/2017 Cbc With Differential Ord2 HCT 44.0 % 10/03/2017 Cbc With Differential Ord2 Neut% 63.7 % 10/03/2017 Cbc With Differential Ord2 MCV 93.2 fl 10/03/2017 Cbc With Differential Ord2 Lymph% 20.5 % 10/03/2017 Cbc With Differential Ord2 MCH 31.1 pg 10/03/2017 Cbc With Differential Ord2 Christian% 10.4 % 10/03/2017 Cbc With Differential Ord2 MCHC 33.4 pg 10/03/2017 Cbc With Differential Ord2 Eos% 4.1 % 10/03/2017 Cbc With Differential Ord2 PLT 190 K/ul 10/03/2017 Cbc With Differential Ord2 Baso% 1.3 % 10/03/2017 Cbc With Differential Ord2 RDW 12.7 % 10/03/2017 Cbc With Differential Ord2 Neut ABS# 4.46 K/ul 10/03/2017 Cbc With Differential Ord2 Lymph ABS# 1.44 K/ul 10/03/2017 Cbc With Differential Ord2 Christian ABS# 0.7 K/ul 10/03/2017 Cbc With Differential Ord2 Eos ABS# 0.3 K/ul 10/03/2017 Cbc With Differential Ord2 Baso ABS# 0.1 K/ul 10/03/2017 %Hba1C Aqp066 % HbA1c 85369-3 6.6 % 10/03/2017 %Hba1C Nvc537 Gluc Ave 143 mg/dL 10/03/2017 Uric Acid Ord77 Uric A 5.1 mg/dL 09/23/2017 Phosphorus Ord71 PHOS 2.8 mg/dL 09/23/2017 Metabolic Ord15 NA 138 mEq/L 09/23/2017 Metabolic Ord15 K 3.6 mEq/L 09/23/2017 Metabolic Ord15 CL 101 mEq/L 09/23/2017 Metabolic Ord15 CO2 28.0 mEq/L 09/23/2017 Metabolic Ord15 GLUCOSE 108 mg/dL 09/23/2017 Metabolic Ord15 BUN 14 mg/dL 09/23/2017 Metabolic Ord15 Creat 0.8 mg/dL 09/23/2017 Metabolic Ord15 B/C Ratio 18.4 Ratio 09/23/2017 Metabolic Ord15 eGFR 105 ml/min/1.73m2 09/23/2017 Metabolic Ord15 Osmo 277 mOsmo 09/23/2017 Metabolic Ord15 ANION GAP 13 09/23/2017 Metabolic Ord15 CALCIUM 9.4 mg/dL 09/23/2017 %Hba1C Lpr616 % HbA1c 61524-0 6.6 % 05/21/2017 %Hba1C Gjq554 Gluc Ave 143 mg/dL 05/21/2017 Comp Metabolic Fqw140 NA 138 mEq/L 05/21/2017 Comp Metabolic Itb045 K 3.8 mEq/L 05/21/2017 Comp Metabolic Jhj627 CL 99 mEq/L 05/21/2017 Comp Metabolic Lnt803 CO2 31.0 mEq/L 05/21/2017 Comp Metabolic Bgq090 ANION GAP 12 05/21/2017 Comp Metabolic Vga353 GLUCOSE 93 mg/dL 05/21/2017 Comp Metabolic Hdx083 Creat 0.8 mg/dL 05/21/2017 Comp Metabolic Qob434 eGFR 102 ml/min/1.73m2 05/21/2017 Comp Metabolic Ghg331 BUN 13 mg/dL 05/21/2017 Comp Metabolic Uav169 B/C Ratio 16.7 Ratio 05/21/2017 Comp Metabolic Ruh517 CALCIUM 9.9 mg/dL 05/21/2017 Comp Metabolic Mau778 ALK PHOS 99 U/L 05/21/2017 Comp Metabolic Gkd227 AST(SGOT) 18 U/L 05/21/2017 Comp Metabolic Oeg062 ALT(SGPT) 29 U/L 05/21/2017 Comp Metabolic Kpj727 BILI T 0.7 mg/dL 05/21/2017 Comp Metabolic Hbh910 ALBUMIN 4.1 g/dL 05/21/2017 Comp Metabolic Bit312 TPRO 6.6 g/dL 05/21/2017 Comp Metabolic Dzo669 GLOB 2.6 g/dL 05/21/2017 Comp Metabolic Oeh708 A/G Ratio 1.6 Ratio 05/21/2017 Comp Metabolic Iua579 Osmo 275 mOsmo 05/21/2017 Tsh Ord6 hTSH II 1.34 uIU/mL 05/21/2017 %Hba1C Ens775 % HbA1c 55472-1 6.4 % 10/04/2015 %Hba1C Bfg453 Gluc Ave 137 mg/dL 10/04/2015 Comp Metabolic Msy331 NA 139 mEq/L 10/04/2015 Comp Metabolic Ocv412 K 3.8 mEq/L 10/04/2015 Comp Metabolic Gbz656 CL 104 mEq/L 10/04/2015 Comp Metabolic Oyx525 CO2 32.0 mEq/L 10/04/2015 Comp Metabolic Ilj946 ANION GAP 7 10/04/2015 Comp Metabolic Nyr021 GLUCOSE 112 mg/dL 10/04/2015 Comp Metabolic Dkg541 Creat 0.8 mg/dL 10/04/2015 Comp Metabolic Zwb445 eGFR 102 ml/min/1.73m2 10/04/2015 Comp Metabolic Iwk700 BUN 16 mg/dL 10/04/2015 Comp Metabolic Fmf873 B/C Ratio 20.5 Ratio 10/04/2015 Comp Metabolic Iav829 CALCIUM 9.3 mg/dL 10/04/2015 Comp Metabolic Rvx880 ALK PHOS 87 U/L 10/04/2015 Comp Metabolic Cwb978 AST(SGOT) 17 U/L 10/04/2015 Comp Metabolic Qoq962 ALT(SGPT) 24 U/L 10/04/2015 Comp Metabolic Fyb842 BILI T 0.6 mg/dL 10/04/2015 Comp Metabolic Nle341 ALBUMIN 4.0 g/dL 10/04/2015 Comp Metabolic Ynp294 TPRO 6.3 g/dL 10/04/2015 Comp Metabolic Ksn340 GLOB 2.3 g/dL 10/04/2015 Comp Metabolic Bct759 A/G Ratio 1.7 Ratio 10/04/2015 Comp Metabolic Wnf127 Osmo 279 mOsmo 10/04/2015 Lipid Ord30 CHOL 123 mg/dL 10/04/2015 Lipid Ord30 HDL 41.0 mg/dl 10/04/2015 Lipid Ord30 TRIG 65 mg/dL 10/04/2015 Lipid Ord30 LDL 69 mg/dL 10/04/2015 Lipid Ord30 C/HDL 3.0 Ratio 10/04/2015 Tsh Ord6 hTSH II 1.07 uIU/mL 10/04/2015 Cbc With Differential Ord2 WBC 6.58 K/ul 10/04/2015 Cbc With Differential Ord2 RBC 4.47 M/ul 10/04/2015 Cbc With Differential Ord2 HGB 14.0 g/dl 10/04/2015 Cbc With Differential Ord2 HCT 42.3 % 10/04/2015 Cbc With Differential Ord2 Neut% 60.8 % 10/04/2015 Cbc With Differential Ord2 MCV 94.6 fl 10/04/2015 Cbc With Differential Ord2 Lymph% 22.2 % 10/04/2015 Cbc With Differential Ord2 MCH 31.3 pg 10/04/2015 Cbc With Differential Ord2 Christian% 9.1 % 10/04/2015 Cbc With Differential Ord2 MCHC 33.1 pg 10/04/2015 Cbc With Differential Ord2 Eos% 6.7 % 10/04/2015 Cbc With Differential Ord2 PLT 224 K/ul 10/04/2015 Cbc With Differential Ord2 Baso% 1.2 % 10/04/2015 Cbc With Differential Ord2 RDW 12.9 % 10/04/2015 Cbc With Differential Ord2 Neut ABS# 4.00 K/ul 10/04/2015 Cbc With Differential Ord2 Lymph ABS# 1.46 K/ul 10/04/2015 Cbc With Differential Ord2 Christian ABS# 0.6 K/ul 10/04/2015 Cbc With Differential Ord2 Eos ABS# 0.4 K/ul 10/04/2015 Cbc With Differential Ord2 Baso ABS# 0.1 K/ul 10/04/2015 %Hba1C Pkd514 % HbA1c 39200-3 6.5 % 11/24/2014 %Hba1C Rgi110 Gluc Ave 140 mg/dL 11/24/2014 Lipid Ord30 CHOL 121 mg/dL 11/23/2014 Lipid Ord30 HDL 37.0 mg/dl 11/23/2014 Lipid Ord30 TRIG 93 mg/dL 11/23/2014 Lipid Ord30 LDL 65 mg/dL 11/23/2014 Lipid Ord30 C/HDL 3.3 Ratio 11/23/2014 Comp Metabolic Tsg285 NA 135 mEq/L 11/23/2014 Comp Metabolic Rfw040 K 3.7 mEq/L 11/23/2014 Comp Metabolic Cwx755 CL 101 mEq/L 11/23/2014 Comp Metabolic Dlq818 CO2 28.0 mEq/L 11/23/2014 Comp Metabolic Fyv803 ANION GAP 10 11/23/2014 Comp Metabolic Kqi621 GLUCOSE 104 mg/dL 11/23/2014 Comp Metabolic Wmc246 Creat 0.8 mg/dL 11/23/2014 Comp Metabolic Ssp081 eGFR 104 ml/min/1.73m2 11/23/2014 Comp Metabolic Buy243 BUN 10 mg/dL 11/23/2014 Comp Metabolic Qoo256 B/C Ratio 13.0 Ratio 11/23/2014 Comp Metabolic Lte853 CALCIUM 9.7 mg/dL 11/23/2014 Comp Metabolic Niv745 ALK PHOS 92 U/L 11/23/2014 Comp Metabolic Yxp561 AST(SGOT) 17 U/L 11/23/2014 Comp Metabolic Ztb041 ALT(SGPT) 26 U/L 11/23/2014 Comp Metabolic Jqk871 BILI T 1.1 mg/dL 11/23/2014 Comp Metabolic Pqu179 ALBUMIN 4.1 g/dL 11/23/2014 Comp Metabolic Uan125 TPRO 6.3 g/dL 11/23/2014 Comp Metabolic Tur674 GLOB 2.2 g/dL 11/23/2014 Comp Metabolic Ejf393 A/G Ratio 1.9 Ratio 11/23/2014 Comp Metabolic Xnx193 Osmo 269 mOsmo 11/23/2014 Cbc With Differential Ord2 WBC 7.7 K/uL 11/23/2014 Cbc With Differential Ord2 LYM 1.8 K/uL 11/23/2014 Cbc With Differential Ord2 LYM% 24.0 % 11/23/2014 Cbc With Differential Ord2 NEUT/GRAN 5.3 K/uL 11/23/2014 Cbc With Differential Ord2 NEUT/GRAN % 69.4 % 11/23/2014 Cbc With Differential Ord2 MID 0.5 K/uL 11/23/2014 Cbc With Differential Ord2 MID% 6.6 % 11/23/2014 Cbc With Differential Ord2 RBC 4.50 M/uL 11/23/2014 Cbc With Differential Ord2 HGB 14.5 g/dL 11/23/2014 Cbc With Differential Ord2 HCT 42.6 % 11/23/2014 Cbc With Differential Ord2 MCV 95 fL 11/23/2014 Cbc With Differential Ord2 MCH 32 pg 11/23/2014 Cbc With Differential Ord2 MCHC 34 g/dL 11/23/2014 Cbc With Differential Ord2 PLT 239 K/uL 11/23/2014 Cbc With Differential Ord2 RDW 13.4 % 11/23/2014 Tsh Ord6 hTSH II 0.73 uIU/mL 11/23/2014 Review of Systems System Result Effective Dates Constitutional No recent illness 2018 Constitutional No chills 06/22/2018 Constitutional No fatigue 06/22/2018 Constitutional No fever 06/22/2018 Constitutional No insomnia 06/22/2018 Constitutional No malaise 06/22/2018 Eyes No blindness 06/22/2018 Eyes No vision change 06/22/2018 Ears/Nose/Throat/Neck No dental pain Ears/Nose/Throat/Neck No dizziness 2018 Ears/Nose/Throat/Neck No dysphagia 2018 Ears/Nose/Throat/Neck No headache 2018 Ears/Nose/Throat/Neck No hearing loss Ears/Nose/Throat/Neck No nasal allergies 06/22/2018 Ears/Nose/Throat/Neck No sore throat Ears/Nose/Throat/Neck No postnasal drip 06/22/2018 Ears/Nose/Throat/Neck No sinus congestion 06/22/2018 Cardiovascular No chest pain/pressure Cardiovascular No dyspnea 06/22/2018 Cardiovascular No edema 06/22/2018 Cardiovascular No exercise intolerance Cardiovascular No fatigue 06/22/2018 Cardiovascular No near-syncope/dizziness 06/22/2018 Cardiovascular No palpitations 2018 Respiratory No chest congestion 2018 Respiratory No chest tightness 2018 Respiratory No cough 06/22/2018 Respiratory No dyspnea 06/22/2018 Respiratory No pedal edema 06/22/2018 Gastrointestinal No abdominal pain 2018 Gastrointestinal No constipation 2018 Gastrointestinal No diarrhea 06/22/2018 Gastrointestinal No gastroesophageal reflux 06/22/2018 Gastrointestinal No nausea 06/22/2018 Gastrointestinal No vomiting 06/22/2018 Musculoskeletal stiffness 06/22/2018 Musculoskeletal No swelling 06/22/2018 Musculoskeletal arthralgia(s) 06/22/2018 Musculoskeletal No muscle weakness 2018 Musculoskeletal No myalgias 06/22/2018 Dermatologic No rash 06/22/2018 Dermatologic No sores 06/22/2018 Neurologic No alteration of consciousness 06/22/2018 Neurologic No dizziness 06/22/2018 Neurologic No headache 06/22/2018 Neurologic No syncope 06/22/2018 Psychiatric No anxiety 06/22/2018 Psychiatric No depression 06/22/2018 Endocrine diabetes mellitus type 2 2018 Musculoskeletal back pain 06/22/2018 Constitutional No recent illness 2017 Constitutional No chills 02/18/2018 Constitutional No fatigue 02/18/2018 Constitutional No fever 02/18/2018 Constitutional No insomnia 02/18/2018 Constitutional No malaise 02/18/2018 Eyes No blindness 02/18/2018 Eyes No vision change 02/18/2018 Ears/Nose/Throat/Neck No dental pain Ears/Nose/Throat/Neck No dizziness 2017 Ears/Nose/Throat/Neck No dysphagia 2017 Ears/Nose/Throat/Neck No headache 2017 Ears/Nose/Throat/Neck No hearing loss Ears/Nose/Throat/Neck No nasal allergies 02/18/2018 Ears/Nose/Throat/Neck No sore throat Ears/Nose/Throat/Neck No postnasal drip 02/18/2018 Ears/Nose/Throat/Neck No sinus congestion 02/18/2018 Cardiovascular No chest pain/pressure Cardiovascular No dyspnea 02/18/2018 Cardiovascular No edema 02/18/2018 Cardiovascular No exercise intolerance Cardiovascular No fatigue 02/18/2018 Cardiovascular No near-syncope/dizziness 02/18/2018 Cardiovascular No palpitations 2017 Respiratory No chest congestion 2017 Respiratory No chest tightness 2017 Respiratory No cough 02/18/2018 Respiratory No dyspnea 02/18/2018 Respiratory No pedal edema 02/18/2018 Gastrointestinal No abdominal pain 2017 Gastrointestinal No constipation 2017 Gastrointestinal No diarrhea 02/18/2018 Gastrointestinal No gastroesophageal reflux 02/18/2018 Gastrointestinal No nausea 02/18/2018 Gastrointestinal No vomiting 02/18/2018 Genitourinary/Nephrology No dysuria 02/18 Genitourinary/Nephrology No nocturia Genitourinary/Nephrology No urinary incontinence 02/18/2018 Musculoskeletal stiffness 02/18/2018 Musculoskeletal No swelling 02/18/2018 Musculoskeletal arthralgia(s) 02/18/2018 Musculoskeletal No muscle weakness 2017 Musculoskeletal No myalgias 02/18/2018 Dermatologic No rash 02/18/2018 Dermatologic No sores 02/18/2018 Neurologic No alteration of consciousness 02/18/2018 Neurologic No dizziness 02/18/2018 Neurologic No headache 02/18/2018 Neurologic No syncope 02/18/2018 Psychiatric No anxiety 02/18/2018 Psychiatric No depression 02/18/2018 Constitutional No recent illness 2017 Constitutional No chills 10/06/2017 Constitutional No fatigue 10/06/2017 Constitutional No fever 10/06/2017 Constitutional No insomnia 10/06/2017 Constitutional No malaise 10/06/2017 Eyes No blindness 10/06/2017 Eyes No vision change 10/06/2017 Ears/Nose/Throat/Neck No dental pain 08/2017 Ears/Nose/Throat/Neck No dizziness 2017 Ears/Nose/Throat/Neck No dysphagia 2017 Ears/Nose/Throat/Neck No headache 2017 Ears/Nose/Throat/Neck No hearing loss 08/2017 Ears/Nose/Throat/Neck No nasal allergies 10/06/2017 Ears/Nose/Throat/Neck No sore throat 08/2017 Ears/Nose/Throat/Neck No postnasal drip 10/06/2017 Ears/Nose/Throat/Neck No sinus congestion 10/06/2017 Cardiovascular No chest pain/pressure 08/2017 Cardiovascular No dyspnea 10/06/2017 Cardiovascular No edema 10/06/2017 Cardiovascular No exercise intolerance Cardiovascular No fatigue 10/06/2017 Cardiovascular No near-syncope/dizziness 10/06/2017 Cardiovascular No palpitations 2017 Respiratory No chest congestion 2017 Respiratory No chest tightness 2017 Respiratory No cough 10/06/2017 Respiratory No dyspnea 10/06/2017 Respiratory No pedal edema 10/06/2017 Gastrointestinal No abdominal pain 2017 Gastrointestinal No constipation 2017 Gastrointestinal No diarrhea 10/06/2017 Gastrointestinal No gastroesophageal reflux 10/06/2017 Gastrointestinal No nausea 10/06/2017 Gastrointestinal No vomiting 10/06/2017 Genitourinary/Nephrology No dysuria 10/06 Genitourinary/Nephrology No nocturia 08/2017 Genitourinary/Nephrology No urinary incontinence 10/06/2017 Musculoskeletal stiffness 10/06/2017 Musculoskeletal No swelling 10/06/2017 Musculoskeletal arthralgia(s) 10/06/2017 Musculoskeletal No muscle weakness 2017 Musculoskeletal No myalgias 10/06/2017 Dermatologic rash 10/06/2017 Dermatologic sores 10/06/2017 Dermatologic No scar 10/06/2017 Neurologic No alteration of consciousness 10/06/2017 Neurologic No dizziness 10/06/2017 Neurologic No headache 10/06/2017 Neurologic No neck pain 10/06/2017 Neurologic No syncope 10/06/2017 Psychiatric No anxiety 10/06/2017 Psychiatric No depression 10/06/2017 Constitutional No recent illness 2017 Constitutional No chills 06/23/2017 Constitutional No fatigue 06/23/2017 Constitutional No fever 06/23/2017 Constitutional No insomnia 06/23/2017 Constitutional No malaise 06/23/2017 Eyes No blindness 06/23/2017 Eyes No vision change 06/23/2017 Ears/Nose/Throat/Neck No dizziness 2017 Ears/Nose/Throat/Neck No dysphagia 2017 Ears/Nose/Throat/Neck No headache 2017 Ears/Nose/Throat/Neck No hearing loss Ears/Nose/Throat/Neck No nasal allergies 06/23/2017 Ears/Nose/Throat/Neck No sore throat Ears/Nose/Throat/Neck No postnasal drip 06/23/2017 Ears/Nose/Throat/Neck No sinus congestion 06/23/2017 Cardiovascular No chest pain/pressure Cardiovascular No dyspnea 06/23/2017 Cardiovascular No edema 06/23/2017 Cardiovascular No exercise intolerance Cardiovascular No fatigue 06/23/2017 Cardiovascular No near-syncope/dizziness 06/23/2017 Cardiovascular No palpitations 2017 Respiratory No chest congestion 2017 Respiratory No chest tightness 2017 Respiratory No cough 06/23/2017 Respiratory No dyspnea 06/23/2017 Respiratory No pedal edema 06/23/2017 Gastrointestinal No abdominal pain 2017 Gastrointestinal No constipation 2017 Gastrointestinal No diarrhea 06/23/2017 Gastrointestinal No gastroesophageal reflux 06/23/2017 Gastrointestinal No nausea 06/23/2017 Gastrointestinal No vomiting 06/23/2017 Musculoskeletal stiffness 06/23/2017 Musculoskeletal No swelling 06/23/2017 Musculoskeletal arthralgia(s) 06/23/2017 Musculoskeletal No muscle weakness 2017 Musculoskeletal No myalgias 06/23/2017 Dermatologic rash 06/23/2017 Dermatologic sores 06/23/2017 Dermatologic No scar 06/23/2017 Neurologic No headache 06/23/2017 Neurologic No neck pain 06/23/2017 Neurologic No syncope 06/23/2017 Psychiatric No anxiety 06/23/2017 Psychiatric No depression 06/23/2017 Constitutional No recent illness 2017 Constitutional No chills 05/21/2017 Constitutional No fatigue 05/21/2017 Constitutional No fever 05/21/2017 Constitutional No insomnia 05/21/2017 Constitutional No malaise 05/21/2017 Eyes No blindness 05/21/2017 Eyes No vision change 05/21/2017 Ears/Nose/Throat/Neck No dental pain Ears/Nose/Throat/Neck No dizziness 2017 Ears/Nose/Throat/Neck No dysphagia 2017 Ears/Nose/Throat/Neck No headache 2017 Ears/Nose/Throat/Neck No hearing loss Ears/Nose/Throat/Neck No nasal allergies 05/21/2017 Ears/Nose/Throat/Neck No sore throat Ears/Nose/Throat/Neck No postnasal drip 05/21/2017 Ears/Nose/Throat/Neck No sinus congestion 05/21/2017 Cardiovascular No chest pain/pressure Cardiovascular No dyspnea 05/21/2017 Cardiovascular No edema 05/21/2017 Cardiovascular No exercise intolerance Cardiovascular No fatigue 05/21/2017 Cardiovascular No near-syncope/dizziness 05/21/2017 Cardiovascular No palpitations 2017 Respiratory No chest congestion 2017 Respiratory No chest tightness 2017 Respiratory No cough 05/21/2017 Respiratory No dyspnea 05/21/2017 Respiratory No pedal edema 05/21/2017 Gastrointestinal No abdominal pain 2017 Gastrointestinal No constipation 2017 Gastrointestinal No diarrhea 05/21/2017 Gastrointestinal No gastroesophageal reflux 05/21/2017 Gastrointestinal No nausea 05/21/2017 Gastrointestinal No vomiting 05/21/2017 Genitourinary/Nephrology No dysuria 05/21 Genitourinary/Nephrology No nocturia Genitourinary/Nephrology No urinary incontinence 05/21/2017 Musculoskeletal stiffness 05/21/2017 Musculoskeletal No swelling 05/21/2017 Musculoskeletal arthralgia(s) 05/21/2017 Musculoskeletal No muscle weakness 2017 Musculoskeletal No myalgias 05/21/2017 Dermatologic rash 05/21/2017 Dermatologic sores 05/21/2017 Dermatologic No scar 05/21/2017 Neurologic No alteration of consciousness 05/21/2017 Neurologic No dizziness 05/21/2017 Neurologic No headache 05/21/2017 Neurologic No neck pain 05/21/2017 Neurologic No syncope 05/21/2017 Psychiatric No anxiety 05/21/2017 Psychiatric No depression 05/21/2017 Constitutional No recent illness 2016 Constitutional No chills 01/16/2017 Constitutional No fatigue 01/16/2017 Constitutional No fever 01/16/2017 Constitutional No insomnia 01/16/2017 Constitutional No malaise 01/16/2017 Eyes No blindness 01/16/2017 Eyes No vision change 01/16/2017 Ears/Nose/Throat/Neck No dental pain Ears/Nose/Throat/Neck No dizziness 2016 Ears/Nose/Throat/Neck No dysphagia 2016 Ears/Nose/Throat/Neck No headache 2016 Ears/Nose/Throat/Neck No hearing loss Ears/Nose/Throat/Neck No nasal allergies 01/16/2017 Ears/Nose/Throat/Neck No sore throat Ears/Nose/Throat/Neck No postnasal drip 01/16/2017 Ears/Nose/Throat/Neck No sinus congestion 01/16/2017 Cardiovascular No chest pain/pressure Cardiovascular No dyspnea 01/16/2017 Cardiovascular No edema 01/16/2017 Cardiovascular No exercise intolerance Cardiovascular No fatigue 01/16/2017 Cardiovascular No near-syncope/dizziness 01/16/2017 Cardiovascular No palpitations 2016 Respiratory No chest congestion 2016 Respiratory No chest tightness 2016 Respiratory No cough 01/16/2017 Respiratory No dyspnea 01/16/2017 Respiratory No pedal edema 01/16/2017 Gastrointestinal No abdominal pain 2016 Gastrointestinal No constipation 2016 Gastrointestinal No diarrhea 01/16/2017 Gastrointestinal No gastroesophageal reflux 01/16/2017 Gastrointestinal No nausea 01/16/2017 Gastrointestinal No vomiting 01/16/2017 Genitourinary/Nephrology No dysuria 01/16 Genitourinary/Nephrology No nocturia Genitourinary/Nephrology No urinary incontinence 01/16/2017 Musculoskeletal stiffness 01/16/2017 Musculoskeletal No swelling 01/16/2017 Musculoskeletal arthralgia(s) 01/16/2017 Musculoskeletal No muscle weakness 2016 Musculoskeletal No myalgias 01/16/2017 Dermatologic rash 01/16/2017 Dermatologic sores 01/16/2017 Dermatologic No scar 01/16/2017 Neurologic No alteration of consciousness 01/16/2017 Neurologic No dizziness 01/16/2017 Neurologic No headache 01/16/2017 Neurologic No neck pain 01/16/2017 Neurologic No syncope 01/16/2017 Psychiatric No anxiety 01/16/2017 Psychiatric No depression 01/16/2017 Constitutional recent illness 08/27/2016 Constitutional fatigue 08/27/2016 Ears/Nose/Throat/Neck No facial pain Ears/Nose/Throat/Neck headache 2016 Ears/Nose/Throat/Neck nasal discharge Ears/Nose/Throat/Neck No sore throat Ears/Nose/Throat/Neck No sinusitis 2016 Cardiovascular No chest pain/pressure Cardiovascular dyspnea 08/27/2016 Cardiovascular No edema 08/27/2016 Cardiovascular No fatigue 08/27/2016 Cardiovascular No syncope 08/27/2016 Respiratory chest tightness 08/27/2016 Respiratory No cigarette smoking 2016 Respiratory cough 08/27/2016 Respiratory No dyspnea 08/27/2016 Respiratory wheezing 08/27/2016 Gastrointestinal No constipation 2016 Gastrointestinal No diarrhea 08/27/2016 Gastrointestinal No dyspepsia 08/27/2016 Gastrointestinal No nausea 08/27/2016 Musculoskeletal No muscle weakness 2016 Musculoskeletal No myalgias 08/27/2016 Dermatologic No rash 08/27/2016 Neurologic No ataxia 08/27/2016 Neurologic No dizziness 08/27/2016 Neurologic No pain, facial 08/27/2016 Psychiatric No anxiety 08/27/2016 Psychiatric No depression 08/27/2016 Constitutional No recent illness 2016 Constitutional No chills 05/30/2016 Constitutional No fatigue 05/30/2016 Constitutional No fever 05/30/2016 Constitutional No insomnia 05/30/2016 Constitutional No malaise 05/30/2016 Eyes No blindness 05/30/2016 Eyes No vision change 05/30/2016 Ears/Nose/Throat/Neck No dental pain Ears/Nose/Throat/Neck No dizziness 2016 Ears/Nose/Throat/Neck No dysphagia 2016 Ears/Nose/Throat/Neck No headache 2016 Ears/Nose/Throat/Neck No hearing loss Ears/Nose/Throat/Neck No nasal allergies 05/30/2016 Ears/Nose/Throat/Neck No sore throat Ears/Nose/Throat/Neck No postnasal drip 05/30/2016 Ears/Nose/Throat/Neck No sinus congestion 05/30/2016 Cardiovascular No chest pain/pressure Cardiovascular No dyspnea 05/30/2016 Cardiovascular No edema 05/30/2016 Cardiovascular No exercise intolerance Cardiovascular No fatigue 05/30/2016 Cardiovascular No near-syncope/dizziness 05/30/2016 Cardiovascular No palpitations 2016 Respiratory No chest congestion 2016 Respiratory No chest tightness 2016 Respiratory No cough 05/30/2016 Respiratory No dyspnea 05/30/2016 Respiratory No pedal edema 05/30/2016 Gastrointestinal No abdominal pain 2016 Gastrointestinal No constipation 2016 Gastrointestinal No diarrhea 05/30/2016 Gastrointestinal No gastroesophageal reflux 05/30/2016 Gastrointestinal No nausea 05/30/2016 Gastrointestinal No vomiting 05/30/2016 Genitourinary/Nephrology No dysuria 05/30 Genitourinary/Nephrology No nocturia Genitourinary/Nephrology No urinary incontinence 05/30/2016 Musculoskeletal stiffness 05/30/2016 Musculoskeletal No swelling 05/30/2016 Musculoskeletal arthralgia(s) 05/30/2016 Musculoskeletal No muscle weakness 2016 Musculoskeletal No myalgias 05/30/2016 Dermatologic No rash 05/30/2016 Dermatologic No sores 05/30/2016 Dermatologic No scar 05/30/2016 Neurologic No alteration of consciousness 05/30/2016 Neurologic No dizziness 05/30/2016 Neurologic No headache 05/30/2016 Neurologic No neck pain 05/30/2016 Neurologic No syncope 05/30/2016 Psychiatric No anxiety 05/30/2016 Psychiatric No depression 05/30/2016 Constitutional No recent illness 2015 Constitutional No chills 04/19/2016 Constitutional fatigue 04/19/2016 Constitutional No fever 04/19/2016 Constitutional No insomnia 04/19/2016 Constitutional No malaise 04/19/2016 Eyes No blindness 04/19/2016 Eyes No vision change 04/19/2016 Ears/Nose/Throat/Neck No dental pain Ears/Nose/Throat/Neck No dizziness 2015 Ears/Nose/Throat/Neck No dysphagia 2015 Ears/Nose/Throat/Neck No headache 2015 Ears/Nose/Throat/Neck No hearing loss Ears/Nose/Throat/Neck No nasal allergies 04/19/2016 Ears/Nose/Throat/Neck No sore throat Ears/Nose/Throat/Neck No postnasal drip 04/19/2016 Ears/Nose/Throat/Neck No sinus congestion 04/19/2016 Cardiovascular No chest pain/pressure Cardiovascular No dyspnea 04/19/2016 Cardiovascular No edema 04/19/2016 Cardiovascular No exercise intolerance Cardiovascular No fatigue 04/19/2016 Cardiovascular No near-syncope/dizziness 04/19/2016 Cardiovascular No palpitations 2015 Respiratory No chest congestion 2015 Respiratory No chest tightness 2015 Respiratory No cough 04/19/2016 Respiratory No dyspnea 04/19/2016 Respiratory No pedal edema 04/19/2016 Gastrointestinal No abdominal pain 2015 Gastrointestinal No constipation 2015 Gastrointestinal No diarrhea 04/19/2016 Gastrointestinal No gastroesophageal reflux 04/19/2016 Gastrointestinal No nausea 04/19/2016 Gastrointestinal No vomiting 04/19/2016 Genitourinary/Nephrology No dysuria 04/19 Genitourinary/Nephrology No nocturia Genitourinary/Nephrology No urinary incontinence 04/19/2016 Musculoskeletal stiffness 04/19/2016 Musculoskeletal No swelling 04/19/2016 Musculoskeletal arthralgia(s) 04/19/2016 Musculoskeletal No muscle weakness 2015 Musculoskeletal No myalgias 04/19/2016 Dermatologic No rash 04/19/2016 Dermatologic No sores 04/19/2016 Dermatologic No scar 04/19/2016 Neurologic No alteration of consciousness 04/19/2016 Neurologic No dizziness 04/19/2016 Neurologic No headache 04/19/2016 Neurologic No neck pain 04/19/2016 Neurologic No syncope 04/19/2016 Psychiatric No anxiety 04/19/2016 Psychiatric No depression 04/19/2016 Musculoskeletal joint complaint 2015 Constitutional No recent illness 2015 Constitutional No chills 01/03/2016 Constitutional No fatigue 01/03/2016 Constitutional No fever 01/03/2016 Constitutional No insomnia 01/03/2016 Constitutional No malaise 01/03/2016 Eyes No blindness 01/03/2016 Eyes No vision change 01/03/2016 Ears/Nose/Throat/Neck No dental pain Ears/Nose/Throat/Neck No dizziness 2015 Ears/Nose/Throat/Neck No dysphagia 2015 Ears/Nose/Throat/Neck No headache 2015 Ears/Nose/Throat/Neck No hearing loss Ears/Nose/Throat/Neck No nasal allergies 01/03/2016 Ears/Nose/Throat/Neck No sore throat Ears/Nose/Throat/Neck No postnasal drip 01/03/2016 Ears/Nose/Throat/Neck No sinus congestion 01/03/2016 Cardiovascular No chest pain/pressure Cardiovascular No dyspnea 01/03/2016 Cardiovascular No edema 01/03/2016 Cardiovascular No exercise intolerance Cardiovascular No fatigue 01/03/2016 Cardiovascular No near-syncope/dizziness 01/03/2016 Cardiovascular No palpitations 2015 Respiratory No chest congestion 2015 Respiratory No chest tightness 2015 Respiratory No cough 01/03/2016 Respiratory No dyspnea 01/03/2016 Respiratory No pedal edema 01/03/2016 Gastrointestinal No abdominal pain 2015 Gastrointestinal No constipation 2015 Gastrointestinal No diarrhea 01/03/2016 Gastrointestinal No gastroesophageal reflux 01/03/2016 Gastrointestinal No nausea 01/03/2016 Gastrointestinal No vomiting 01/03/2016 Genitourinary/Nephrology No dysuria 01/02 Genitourinary/Nephrology No nocturia Genitourinary/Nephrology No urinary incontinence 01/03/2016 Musculoskeletal stiffness 01/03/2016 Musculoskeletal No swelling 01/03/2016 Musculoskeletal arthralgia(s) 01/03/2016 Musculoskeletal No muscle weakness 2015 Musculoskeletal No myalgias 01/03/2016 Dermatologic No rash 01/03/2016 Dermatologic No sores 01/03/2016 Dermatologic No scar 01/03/2016 Neurologic No alteration of consciousness 01/03/2016 Neurologic No dizziness 01/03/2016 Neurologic No headache 01/03/2016 Neurologic No neck pain 01/03/2016 Neurologic No syncope 01/03/2016 Psychiatric No anxiety 01/03/2016 Psychiatric No depression 01/03/2016 Constitutional No recent illness 2015 Constitutional No chills 10/03/2015 Constitutional No fatigue 10/03/2015 Constitutional No fever 10/03/2015 Constitutional No insomnia 10/03/2015 Constitutional No malaise 10/03/2015 Eyes No blindness 10/03/2015 Eyes No vision change 10/03/2015 Ears/Nose/Throat/Neck No dental pain Ears/Nose/Throat/Neck No dizziness 2015 Ears/Nose/Throat/Neck No dysphagia 2015 Ears/Nose/Throat/Neck No headache 2015 Ears/Nose/Throat/Neck No hearing loss Ears/Nose/Throat/Neck No nasal allergies 10/03/2015 Ears/Nose/Throat/Neck No sore throat Ears/Nose/Throat/Neck No postnasal drip 10/03/2015 Ears/Nose/Throat/Neck No sinus congestion 10/03/2015 Cardiovascular No chest pain/pressure Cardiovascular No dyspnea 10/03/2015 Cardiovascular No edema 10/03/2015 Cardiovascular No exercise intolerance Cardiovascular No fatigue 10/03/2015 Cardiovascular No near-syncope/dizziness 10/03/2015 Cardiovascular No palpitations 2015 Respiratory No chest congestion 2015 Respiratory No chest tightness 2015 Respiratory No cough 10/03/2015 Respiratory No dyspnea 10/03/2015 Respiratory No pedal edema 10/03/2015 Gastrointestinal No abdominal pain 2015 Gastrointestinal No constipation 2015 Gastrointestinal No diarrhea 10/03/2015 Gastrointestinal No gastroesophageal reflux 10/03/2015 Gastrointestinal No nausea 10/03/2015 Gastrointestinal No vomiting 10/03/2015 Genitourinary/Nephrology No dysuria 10/02 Genitourinary/Nephrology No nocturia Genitourinary/Nephrology No urinary incontinence 10/03/2015 Musculoskeletal stiffness 10/03/2015 Musculoskeletal No swelling 10/03/2015 Musculoskeletal arthralgia(s) 10/03/2015 Musculoskeletal No muscle weakness 2015 Musculoskeletal No myalgias 10/03/2015 Dermatologic No rash 10/03/2015 Dermatologic No sores 10/03/2015 Dermatologic No scar 10/03/2015 Neurologic No alteration of consciousness 10/03/2015 Neurologic No dizziness 10/03/2015 Neurologic No headache 10/03/2015 Neurologic No neck pain 10/03/2015 Neurologic No syncope 10/03/2015 Psychiatric No anxiety 10/03/2015 Psychiatric No depression 10/03/2015 Constitutional No recent illness 2015 Constitutional No chills 05/25/2015 Constitutional No fatigue 05/25/2015 Constitutional No fever 05/25/2015 Constitutional No insomnia 05/25/2015 Constitutional No malaise 05/25/2015 Eyes No vision change 05/25/2015 Ears/Nose/Throat/Neck No headache 2015 Ears/Nose/Throat/Neck No nasal allergies 05/25/2015 Ears/Nose/Throat/Neck No sore throat Ears/Nose/Throat/Neck No postnasal drip 05/25/2015 Ears/Nose/Throat/Neck No sinus congestion 05/25/2015 Cardiovascular No chest pain/pressure Cardiovascular No dyspnea 05/25/2015 Cardiovascular No edema 05/25/2015 Respiratory No chest congestion 2015 Respiratory No cough 05/25/2015 Respiratory No dyspnea 05/25/2015 Gastrointestinal No abdominal pain 2015 Gastrointestinal No constipation 2015 Gastrointestinal No diarrhea 05/25/2015 Gastrointestinal No nausea 05/25/2015 Gastrointestinal No vomiting 05/25/2015 Musculoskeletal stiffness 05/25/2015 Musculoskeletal No swelling 05/25/2015 Musculoskeletal arthralgia(s) 05/25/2015 Musculoskeletal No muscle weakness 2015 Musculoskeletal No myalgias 05/25/2015 Dermatologic No rash 05/25/2015 Dermatologic No sores 05/25/2015 Dermatologic No scar 05/25/2015 Neurologic No alteration of consciousness 05/25/2015 Psychiatric No anxiety 05/25/2015 Psychiatric No depression 05/25/2015 Eyes No eye discharge 05/25/2015 Eyes No eye erythema 05/25/2015 Ears/Nose/Throat/Neck No nasal discharge 05/25/2015 Musculoskeletal joint complaint 2015 Constitutional No recent illness 2014 Constitutional No chills 04/03/2015 Constitutional No fatigue 04/03/2015 Constitutional No fever 04/03/2015 Constitutional No insomnia 04/03/2015 Constitutional No malaise 04/03/2015 Eyes No blindness 04/03/2015 Eyes No vision change 04/03/2015 Ears/Nose/Throat/Neck No dental pain Ears/Nose/Throat/Neck No dizziness 2014 Ears/Nose/Throat/Neck No dysphagia 2014 Ears/Nose/Throat/Neck No headache 2014 Ears/Nose/Throat/Neck No hearing loss Ears/Nose/Throat/Neck No nasal allergies 04/03/2015 Ears/Nose/Throat/Neck No sore throat Ears/Nose/Throat/Neck No postnasal drip 04/03/2015 Ears/Nose/Throat/Neck No sinus congestion 04/03/2015 Cardiovascular No chest pain/pressure Cardiovascular No dyspnea 04/03/2015 Cardiovascular No edema 04/03/2015 Cardiovascular No exercise intolerance Cardiovascular No fatigue 04/03/2015 Cardiovascular No near-syncope/dizziness 04/03/2015 Cardiovascular No palpitations 2014 Respiratory No chest congestion 2014 Respiratory No chest tightness 2014 Respiratory No cough 04/03/2015 Respiratory No dyspnea 04/03/2015 Respiratory No pedal edema 04/03/2015 Gastrointestinal No abdominal pain 2014 Gastrointestinal No constipation 2014 Gastrointestinal No diarrhea 04/03/2015 Gastrointestinal No gastroesophageal reflux 04/03/2015 Gastrointestinal No nausea 04/03/2015 Gastrointestinal No vomiting 04/03/2015 Genitourinary/Nephrology No dysuria 04/03 Genitourinary/Nephrology No nocturia Genitourinary/Nephrology No urinary incontinence 04/03/2015 Musculoskeletal stiffness 04/03/2015 Musculoskeletal No swelling 04/03/2015 Musculoskeletal arthralgia(s) 04/03/2015 Musculoskeletal No muscle weakness 2014 Musculoskeletal No myalgias 04/03/2015 Dermatologic No rash 04/03/2015 Dermatologic No sores 04/03/2015 Dermatologic No scar 04/03/2015 Neurologic No alteration of consciousness 04/03/2015 Neurologic No dizziness 04/03/2015 Neurologic No headache 04/03/2015 Neurologic No neck pain 04/03/2015 Neurologic No syncope 04/03/2015 Psychiatric No anxiety 04/03/2015 Psychiatric No depression 04/03/2015 Dermatologic mole change 04/03/2015 Constitutional No recent illness 2014 Constitutional No chills 11/23/2014 Constitutional No fatigue 11/23/2014 Constitutional No fever 11/23/2014 Constitutional No insomnia 11/23/2014 Constitutional No malaise 11/23/2014 Eyes No blindness 11/23/2014 Eyes No vision change 11/23/2014 Ears/Nose/Throat/Neck No dental pain Ears/Nose/Throat/Neck No dizziness 2014 Ears/Nose/Throat/Neck No dysphagia 2014 Ears/Nose/Throat/Neck No headache 2014 Ears/Nose/Throat/Neck No hearing loss Ears/Nose/Throat/Neck No nasal allergies 11/23/2014 Ears/Nose/Throat/Neck No sore throat Ears/Nose/Throat/Neck No postnasal drip 11/23/2014 Ears/Nose/Throat/Neck No sinus congestion 11/23/2014 Cardiovascular No chest pain/pressure Cardiovascular No dyspnea 11/23/2014 Cardiovascular No edema 11/23/2014 Cardiovascular No exercise intolerance Cardiovascular No fatigue 11/23/2014 Cardiovascular No near-syncope/dizziness 11/23/2014 Respiratory No chest tightness 2014 Respiratory No cough 11/23/2014 Respiratory No dyspnea 11/23/2014 Respiratory No pedal edema 11/23/2014 Gastrointestinal No abdominal pain 2014 Gastrointestinal No constipation 2014 Gastrointestinal No diarrhea 11/23/2014 Gastrointestinal No gastroesophageal reflux 11/23/2014 Gastrointestinal No nausea 11/23/2014 Gastrointestinal No vomiting 11/23/2014 Genitourinary/Nephrology No dysuria 11/23 Genitourinary/Nephrology No nocturia Genitourinary/Nephrology No urinary incontinence 11/23/2014 Musculoskeletal stiffness 11/23/2014 Musculoskeletal No swelling 11/23/2014 Musculoskeletal No muscle weakness 2014 Musculoskeletal No myalgias 11/23/2014 Dermatologic No rash 11/23/2014 Dermatologic No sores 11/23/2014 Dermatologic No scar 11/23/2014 Neurologic No dizziness 11/23/2014 Neurologic No headache 11/23/2014 Neurologic No neck pain 11/23/2014 Neurologic No syncope 11/23/2014 Psychiatric No anxiety 11/23/2014 Psychiatric No depression 11/23/2014 Cardiovascular No palpitations 2014 Respiratory No chest congestion 2014 Neurologic No alteration of consciousness 11/23/2014 Musculoskeletal arthralgia(s) 11/23/2014 Constitutional fatigue 09/20/2014 Constitutional recent illness 09/20/2014 Ears/Nose/Throat/Neck No facial pain Ears/Nose/Throat/Neck headache 2014 Ears/Nose/Throat/Neck nasal discharge Ears/Nose/Throat/Neck No sinusitis 2014 Ears/Nose/Throat/Neck No sore throat Cardiovascular No chest pain/pressure Cardiovascular dyspnea 09/20/2014 Cardiovascular No edema 09/20/2014 Cardiovascular No fatigue 09/20/2014 Cardiovascular No syncope 09/20/2014 Respiratory chest tightness 09/20/2014 Respiratory No cigarette smoking 2014 Respiratory cough 09/20/2014 Respiratory No dyspnea 09/20/2014 Respiratory wheezing 09/20/2014 Gastrointestinal No constipation 2014 Gastrointestinal No diarrhea 09/20/2014 Gastrointestinal No dyspepsia 09/20/2014 Gastrointestinal No nausea 09/20/2014 Musculoskeletal No muscle weakness 2014 Musculoskeletal No myalgias 09/20/2014 Dermatologic No rash 09/20/2014 Neurologic No ataxia 09/20/2014 Neurologic No dizziness 09/20/2014 Neurologic No pain, facial 09/20/2014 Psychiatric No anxiety 09/20/2014 Psychiatric No depression 09/20/2014 Physical Exam Exam Name System Name Item Name Status Result Effective Dates Notes Full Exam - General 1994 Constitutional general appearance Development: well developed 06/22/2018 None Full Exam - General 1994 Constitutional general appearance Development: appears stated age 0206/22/2018 None Full Exam - General 1994 Constitutional general appearance Hygiene/Attention to Grooming: good hygiene 06/22/2018 None Full Exam - General 1994 Eyes conjunctiva /eyelids Overall: conjunctiva clear 06/22/2018 None Full Exam - General 1994 Eyes conjunctiva /eyelids Overall: cornea clear 06/22/2018 None Full Exam - General 1994 Eyes conjunctiva /eyelids Overall: eyelids normal 06/22/2018 None Full Exam - General 1994 Eyes pupils and irises Overall: pupils equal, round, reactive to light and accomodation 06/22/2018 None Full Exam - General 1994 Ears/Nose/Throat lips/teeth/gingiva Overall: benign lips 06/22/2018 None Full Exam - General 1994 Ears/Nose/Throat lips/teeth/gingiva Overall: normal dentition 06/22/2018 None Full Exam - General 1994 Ears/Nose/Throat oral cavity/pharynx/larynx Overall: oral mucosa clear 06/22/2018 None Full Exam - General 1994 Ears/Nose/Throat oral cavity/pharynx/larynx Overall: oropharyngeal mucosa clear 06/22/2018 None Full Exam - General 1994 Ears/Nose/Throat oral cavity/pharynx/larynx Overall: hypopharynx benign 06/22/2018 None Full Exam - General 1994 Ears/Nose/Throat oral cavity/pharynx/larynx Overall: no masses 06/22/2018 None Full Exam - General 1994 Respiratory auscultation Overall: breath sounds clear bilaterally 06/22/2018 None Full Exam - General 1994 Respiratory respiratory effort/rhythm Overall: no retractions 06/22/2018 None Full Exam - General 1994 Respiratory respiratory effort/rhythm Overall: normal rate 06/22/2018 None Full Exam - General 1994 Cardiovascular extremities Overall: no clubbing 06/22/2018 None Full Exam - General 1994 Cardiovascular auscultation of heart Overall: regular rate 06/22/2018 None Full Exam - General 1994 Cardiovascular auscultation of heart Overall: normal heart sounds 06/22/2018 None Full Exam - General 1994 Abdomen abdominal exam Overall: no tenderness 06/22/2018 None Full Exam - General 1994 Abdomen abdominal exam Overall: normal bowel sounds 06/22/2018 None Full Exam - General 1994 Musculoskeletal spine, ribs and pelvis Overall: spine benign 06/22/2018 None Full Exam - General 1994 Musculoskeletal spine, ribs and pelvis Overall: sacroiliac joint benign 06/22/2018 None Full Exam - General 1994 Musculoskeletal spine, ribs and pelvis Overall: good posture 06/22/2018 None Full Exam - General 1994 Musculoskeletal head and neck Overall: head atraumatic 06/22/2018 None Full Exam - General 1994 Musculoskeletal head and neck Overall: cervical spine benign 06/22/2018 None Full Exam - General 1994 Neurologic deep tendon reflexes Overall: deep tendon reflexes intact 06/22/2018 None Full Exam - General 1994 Neurologic cranial nerves Overall: crainial nerves 2 - 12 grossly intact 06/22/2018 None Full Exam - General 1994 Psychiatric orientation/consciousness Overall: oriented to person, place and time 06/22/2018 None Full Exam - General 1994 Psychiatric mood and affect Overall: normal mood and affect 06/22/2018 None Full Exam - General 1994 Integument inspection of skin Rash/Lesions: ulceration 06/22/2018 on arms, legs, hands - excorations/ulcerations Full Exam - General 1994 Constitutional general appearance Development: well developed 02/18/2018 None Full Exam - General 1994 Constitutional general appearance Development: appears stated age 1002/18/2018 None Full Exam - General 1994 Constitutional general appearance Hygiene/Attention to Grooming: good hygiene 02/18/2018 None Full Exam - General 1994 Eyes conjunctiva /eyelids Overall: conjunctiva clear 02/18/2018 None Full Exam - General 1994 Eyes conjunctiva /eyelids Overall: cornea clear 02/18/2018 None Full Exam - General 1994 Eyes conjunctiva /eyelids Overall: eyelids normal 02/18/2018 None Full Exam - General 1994 Eyes pupils and irises Overall: pupils equal, round, reactive to light and accomodation 02/18/2018 None Full Exam - General 1994 Ears/Nose/Throat otoscopic exam Overall: external auditory canals clear 02/18/2018 None Full Exam - General 1994 Ears/Nose/Throat otoscopic exam Overall: tympanic membranes clear 02/18/2018 None Full Exam - General 1994 Ears/Nose/Throat lips/teeth/gingiva Overall: benign lips 02/18/2018 None Full Exam - General 1994 Ears/Nose/Throat lips/teeth/gingiva Overall: normal dentition 02/18/2018 None Full Exam - General 1994 Ears/Nose/Throat oral cavity/pharynx/larynx Overall: oral mucosa clear 02/18/2018 None Full Exam - General 1994 Ears/Nose/Throat oral cavity/pharynx/larynx Overall: oropharyngeal mucosa clear 02/18/2018 None Full Exam - General 1994 Ears/Nose/Throat oral cavity/pharynx/larynx Overall: hypopharynx benign 02/18/2018 None Full Exam - General 1994 Ears/Nose/Throat oral cavity/pharynx/larynx Overall: no masses 02/18/2018 None Full Exam - General 1994 Respiratory auscultation Overall: breath sounds clear bilaterally 02/18/2018 None Full Exam - General 1994 Respiratory respiratory effort/rhythm Overall: no retractions 02/18/2018 None Full Exam - General 1994 Respiratory respiratory effort/rhythm Overall: normal rate 02/18/2018 None Full Exam - General 1994 Cardiovascular extremities Overall: no clubbing 02/18/2018 None Full Exam - General 1994 Cardiovascular auscultation of heart Overall: regular rate 02/18/2018 None Full Exam - General 1994 Cardiovascular auscultation of heart Overall: normal heart sounds 02/18/2018 None Full Exam - General 1994 Abdomen abdominal exam Overall: no tenderness 02/18/2018 None Full Exam - General 1994 Abdomen abdominal exam Overall: normal bowel sounds 02/18/2018 None Full Exam - General 1994 Lymphatic neck nodes Overall: anterior cervical chain benign 02/18/2018 None Full Exam - General 1994 Lymphatic neck nodes Overall: posterior cervical chain benign 02/18/2018 None Full Exam - General 1994 Musculoskeletal lower extremity Inspection - knee: presence of a scar 02/18/2018 None Full Exam - General 1994 Musculoskeletal spine, ribs and pelvis Overall: spine benign 02/18/2018 None Full Exam - General 1994 Musculoskeletal spine, ribs and pelvis Overall: sacroiliac joint benign 02/18/2018 None Full Exam - General 1994 Musculoskeletal spine, ribs and pelvis Overall: good posture 02/18/2018 None Full Exam - General 1994 Musculoskeletal head and neck Overall: head atraumatic 02/18/2018 None Full Exam - General 1994 Musculoskeletal head and neck Overall: cervical spine benign 02/18/2018 None Full Exam - General 1994 Integument inspection of skin Overall: few scattered moles, no gross abnormalities 02/18/2018 None Full Exam - General 1994 Integument inspection of skin Rash/Lesions: patch 02/18/2018 of dry skin with occasional wounds from excoriation of tissue on legs - worse on right lateral lower leg, on arms/forearms, deltoids and one lesion on right upper back Full Exam - General 1994 Neurologic deep tendon reflexes Overall: deep tendon reflexes intact 02/18/2018 None Full Exam - General 1994 Neurologic cranial nerves Overall: crainial nerves 2 - 12 grossly intact 02/18/2018 None Full Exam - General 1994 Psychiatric orientation/consciousness Overall: oriented to person, place and time 02/18/2018 None Full Exam - General 1994 Psychiatric mood and affect Overall: normal mood and affect 02/18/2018 None Full Exam - General 1994 Constitutional general appearance Development: well developed 10/06/2017 None Full Exam - General 1994 Constitutional general appearance Development: appears stated age 0610/06/2017 None Full Exam - General 1994 Constitutional general appearance Hygiene/Attention to Grooming: good hygiene 10/06/2017 None Full Exam - General 1994 Eyes conjunctiva /eyelids Overall: conjunctiva clear 10/06/2017 None Full Exam - General 1994 Eyes conjunctiva /eyelids Overall: cornea clear 10/06/2017 None Full Exam - General 1994 Eyes conjunctiva /eyelids Overall: eyelids normal 10/06/2017 None Full Exam - General 1994 Eyes pupils and irises Overall: pupils equal, round, reactive to light and accomodation 10/06/2017 None Full Exam - General 1994 Ears/Nose/Throat otoscopic exam Overall: external auditory canals clear 10/06/2017 None Full Exam - General 1994 Ears/Nose/Throat otoscopic exam Overall: tympanic membranes clear 10/06/2017 None Full Exam - General 1994 Ears/Nose/Throat lips/teeth/gingiva Overall: benign lips 10/06/2017 None Full Exam - General 1994 Ears/Nose/Throat lips/teeth/gingiva Overall: normal dentition 10/06/2017 None Full Exam - General 1994 Ears/Nose/Throat oral cavity/pharynx/larynx Overall: oral mucosa clear 10/06/2017 None Full Exam - General 1994 Ears/Nose/Throat oral cavity/pharynx/larynx Overall: oropharyngeal mucosa clear 10/06/2017 None Full Exam - General 1994 Ears/Nose/Throat oral cavity/pharynx/larynx Overall: hypopharynx benign 10/06/2017 None Full Exam - General 1994 Ears/Nose/Throat oral cavity/pharynx/larynx Overall: no masses 10/06/2017 None Full Exam - General 1994 Respiratory auscultation Overall: breath sounds clear bilaterally 10/06/2017 None Full Exam - General 1994 Respiratory respiratory effort/rhythm Overall: no retractions 10/06/2017 None Full Exam - General 1994 Respiratory respiratory effort/rhythm Overall: normal rate 10/06/2017 None Full Exam - General 1994 Cardiovascular extremities Overall: no clubbing 10/06/2017 None Full Exam - General 1994 Cardiovascular auscultation of heart Overall: regular rate 10/06/2017 None Full Exam - General 1994 Cardiovascular auscultation of heart Overall: normal heart sounds 10/06/2017 None Full Exam - General 1994 Abdomen abdominal exam Overall: no tenderness 10/06/2017 None Full Exam - General 1994 Abdomen abdominal exam Overall: normal bowel sounds 10/06/2017 None Full Exam - General 1994 Lymphatic neck nodes Overall: anterior cervical chain benign 10/06/2017 None Full Exam - General 1994 Lymphatic neck nodes Overall: posterior cervical chain benign 10/06/2017 None Full Exam - General 1994 Musculoskeletal lower extremity Inspection - knee: presence of a scar 10/06/2017 None Full Exam - General 1994 Musculoskeletal spine, ribs and pelvis Overall: spine benign 10/06/2017 None Full Exam - General 1994 Musculoskeletal spine, ribs and pelvis Overall: sacroiliac joint benign 10/06/2017 None Full Exam - General 1994 Musculoskeletal spine, ribs and pelvis Overall: good posture 10/06/2017 None Full Exam - General 1994 Musculoskeletal head and neck Overall: head atraumatic 10/06/2017 None Full Exam - General 1994 Musculoskeletal head and neck Overall: cervical spine benign 10/06/2017 None Full Exam - General 1994 Integument inspection of skin Overall: few scattered moles, no gross abnormalities 10/06/2017 None Full Exam - General 1994 Integument inspection of skin Rash/Lesions: patch 10/06/2017 of dry skin with occasional wounds from excoriation of tissue on legs - worse on right lateral lower leg, on arms/forearms, deltoids and one lesion on right upper back Full Exam - General 1994 Neurologic deep tendon reflexes Overall: deep tendon reflexes intact 10/06/2017 None Full Exam - General 1994 Neurologic cranial nerves Overall: crainial nerves 2 - 12 grossly intact 10/06/2017 None Full Exam - General 1994 Psychiatric orientation/consciousness Overall: oriented to person, place and time 10/06/2017 None Full Exam - General 1994 Psychiatric mood and affect Overall: normal mood and affect 10/06/2017 None Full Exam - General 1994 Constitutional general appearance Development: well developed 06/23/2017 None Full Exam - General 1994 Constitutional general appearance Development: appears stated age 0206/23/2017 None Full Exam - General 1994 Constitutional general appearance Hygiene/Attention to Grooming: good hygiene 06/23/2017 None Full Exam - General 1994 Eyes conjunctiva /eyelids Overall: conjunctiva clear 06/23/2017 None Full Exam - General 1994 Eyes conjunctiva /eyelids Overall: cornea clear 06/23/2017 None Full Exam - General 1994 Eyes conjunctiva /eyelids Overall: eyelids normal 06/23/2017 None Full Exam - General 1994 Eyes pupils and irises Overall: pupils equal, round, reactive to light and accomodation 06/23/2017 None Full Exam - General 1994 Ears/Nose/Throat otoscopic exam Overall: external auditory canals clear 06/23/2017 None Full Exam - General 1994 Ears/Nose/Throat otoscopic exam Overall: tympanic membranes clear 06/23/2017 None Full Exam - General 1994 Ears/Nose/Throat lips/teeth/gingiva Overall: benign lips 06/23/2017 None Full Exam - General 1994 Ears/Nose/Throat lips/teeth/gingiva Overall: normal dentition 06/23/2017 None Full Exam - General 1994 Ears/Nose/Throat oral cavity/pharynx/larynx Overall: oral mucosa clear 06/23/2017 None Full Exam - General 1994 Ears/Nose/Throat oral cavity/pharynx/larynx Overall: oropharyngeal mucosa clear 06/23/2017 None Full Exam - General 1994 Ears/Nose/Throat oral cavity/pharynx/larynx Overall: hypopharynx benign 06/23/2017 None Full Exam - General 1994 Ears/Nose/Throat oral cavity/pharynx/larynx Overall: no masses 06/23/2017 None Full Exam - General 1994 Respiratory auscultation Overall: breath sounds clear bilaterally 06/23/2017 None Full Exam - General 1994 Respiratory respiratory effort/rhythm Overall: no retractions 06/23/2017 None Full Exam - General 1994 Respiratory respiratory effort/rhythm Overall: normal rate 06/23/2017 None Full Exam - General 1994 Cardiovascular extremities Overall: no clubbing 06/23/2017 None Full Exam - General 1994 Cardiovascular auscultation of heart Overall: regular rate 06/23/2017 None Full Exam - General 1994 Cardiovascular auscultation of heart Overall: normal heart sounds 06/23/2017 None Full Exam - General 1994 Musculoskeletal spine, ribs and pelvis Overall: spine benign 06/23/2017 None Full Exam - General 1994 Musculoskeletal spine, ribs and pelvis Overall: sacroiliac joint benign 06/23/2017 None Full Exam - General 1994 Musculoskeletal spine, ribs and pelvis Overall: good posture 06/23/2017 None Full Exam - General 1994 Musculoskeletal head and neck Overall: head atraumatic 06/23/2017 None Full Exam - General 1994 Musculoskeletal head and neck Overall: cervical spine benign 06/23/2017 None Full Exam - General 1994 Integument inspection of skin Overall: few scattered moles, no gross abnormalities 06/23/2017 None Full Exam - General 1994 Integument inspection of skin Rash/Lesions: patch 06/23/2017 of dry skin with occasional wounds from excoriation of tissue on legs - worse on right lateral lower leg, on arms/forearms, deltoids and one lesion on right upper back Full Exam - General 1994 Neurologic cranial nerves Overall: crainial nerves 2 - 12 grossly intact 06/23/2017 None Full Exam - General 1994 Psychiatric orientation/consciousness Overall: oriented to person, place and time 06/23/2017 None Full Exam - General 1994 Psychiatric mood and affect Overall: normal mood and affect 06/23/2017 None Full Exam - General 1994 Constitutional general appearance Development: well developed 05/21/2017 None Full Exam - General 1994 Constitutional general appearance Development: appears stated age 0105/21/2017 None Full Exam - General 1994 Constitutional general appearance Hygiene/Attention to Grooming: good hygiene 05/21/2017 None Full Exam - General 1994 Eyes conjunctiva /eyelids Overall: conjunctiva clear 05/21/2017 None Full Exam - General 1994 Eyes conjunctiva /eyelids Overall: cornea clear 05/21/2017 None Full Exam - General 1994 Eyes conjunctiva /eyelids Overall: eyelids normal 05/21/2017 None Full Exam - General 1994 Eyes pupils and irises Overall: pupils equal, round, reactive to light and accomodation 05/21/2017 None Full Exam - General 1994 Ears/Nose/Throat otoscopic exam Overall: external auditory canals clear 05/21/2017 None Full Exam - General 1994 Ears/Nose/Throat otoscopic exam Overall: tympanic membranes clear 05/21/2017 None Full Exam - General 1994 Ears/Nose/Throat lips/teeth/gingiva Overall: benign lips 05/21/2017 None Full Exam - General 1994 Ears/Nose/Throat lips/teeth/gingiva Overall: normal dentition 05/21/2017 None Full Exam - General 1994 Ears/Nose/Throat oral cavity/pharynx/larynx Overall: oral mucosa clear 05/21/2017 None Full Exam - General 1994 Ears/Nose/Throat oral cavity/pharynx/larynx Overall: oropharyngeal mucosa clear 05/21/2017 None Full Exam - General 1994 Ears/Nose/Throat oral cavity/pharynx/larynx Overall: hypopharynx benign 05/21/2017 None Full Exam - General 1994 Ears/Nose/Throat oral cavity/pharynx/larynx Overall: no masses 05/21/2017 None Full Exam - General 1994 Respiratory auscultation Overall: breath sounds clear bilaterally 05/21/2017 None Full Exam - General 1994 Respiratory respiratory effort/rhythm Overall: no retractions 05/21/2017 None Full Exam - General 1994 Respiratory respiratory effort/rhythm Overall: normal rate 05/21/2017 None Full Exam - General 1994 Cardiovascular extremities Overall: no clubbing 05/21/2017 None Full Exam - General 1994 Cardiovascular auscultation of heart Overall: regular rate 05/21/2017 None Full Exam - General 1994 Cardiovascular auscultation of heart Overall: normal heart sounds 05/21/2017 None Full Exam - General 1994 Abdomen abdominal exam Overall: no tenderness 05/21/2017 None Full Exam - General 1994 Abdomen abdominal exam Overall: normal bowel sounds 05/21/2017 None Full Exam - General 1994 Lymphatic neck nodes Overall: anterior cervical chain benign 05/21/2017 None Full Exam - General 1994 Lymphatic neck nodes Overall: posterior cervical chain benign 05/21/2017 None Full Exam - General 1994 Musculoskeletal lower extremity Inspection - knee: presence of a scar 05/21/2017 None Full Exam - General 1994 Musculoskeletal spine, ribs and pelvis Overall: spine benign 05/21/2017 None Full Exam - General 1994 Musculoskeletal spine, ribs and pelvis Overall: sacroiliac joint benign 05/21/2017 None Full Exam - General 1994 Musculoskeletal spine, ribs and pelvis Overall: good posture 05/21/2017 None Full Exam - General 1994 Musculoskeletal head and neck Overall: head atraumatic 05/21/2017 None Full Exam - General 1994 Musculoskeletal head and neck Overall: cervical spine benign 05/21/2017 None Full Exam - General 1994 Integument inspection of skin Overall: few scattered moles, no gross abnormalities 05/21/2017 None Full Exam - General 1994 Integument inspection of skin Rash/Lesions: patch 05/21/2017 of dry skin with occasional wounds from excoriation of tissue on legs - worse on right lateral lower leg, on arms/forearms, deltoids and one lesion on right upper back Full Exam - General 1994 Neurologic deep tendon reflexes Overall: deep tendon reflexes intact 05/21/2017 None Full Exam - General 1994 Neurologic cranial nerves Overall: crainial nerves 2 - 12 grossly intact 05/21/2017 None Full Exam - General 1994 Psychiatric orientation/consciousness Overall: oriented to person, place and time 05/21/2017 None Full Exam - General 1994 Psychiatric mood and affect Overall: normal mood and affect 05/21/2017 None Full Exam - General 1994 Constitutional general appearance Development: well developed 01/16/2017 None Full Exam - General 1994 Constitutional general appearance Development: appears stated age 0901/16/2017 None Full Exam - General 1994 Constitutional general appearance Hygiene/Attention to Grooming: good hygiene 01/16/2017 None Full Exam - General 1994 Eyes conjunctiva /eyelids Overall: conjunctiva clear 01/16/2017 None Full Exam - General 1994 Eyes conjunctiva /eyelids Overall: cornea clear 01/16/2017 None Full Exam - General 1994 Eyes conjunctiva /eyelids Overall: eyelids normal 01/16/2017 None Full Exam - General 1994 Eyes pupils and irises Overall: pupils equal, round, reactive to light and accomodation 01/16/2017 None Full Exam - General 1994 Ears/Nose/Throat otoscopic exam Overall: external auditory canals clear 01/16/2017 None Full Exam - General 1994 Ears/Nose/Throat otoscopic exam Overall: tympanic membranes clear 01/16/2017 None Full Exam - General 1994 Ears/Nose/Throat lips/teeth/gingiva Overall: benign lips 01/16/2017 None Full Exam - General 1994 Ears/Nose/Throat lips/teeth/gingiva Overall: normal dentition 01/16/2017 None Full Exam - General 1994 Ears/Nose/Throat oral cavity/pharynx/larynx Overall: oral mucosa clear 01/16/2017 None Full Exam - General 1994 Ears/Nose/Throat oral cavity/pharynx/larynx Overall: oropharyngeal mucosa clear 01/16/2017 None Full Exam - General 1994 Ears/Nose/Throat oral cavity/pharynx/larynx Overall: hypopharynx benign 01/16/2017 None Full Exam - General 1994 Ears/Nose/Throat oral cavity/pharynx/larynx Overall: no masses 01/16/2017 None Full Exam - General 1994 Respiratory auscultation Overall: breath sounds clear bilaterally 01/16/2017 None Full Exam - General 1994 Respiratory respiratory effort/rhythm Overall: no retractions 01/16/2017 None Full Exam - General 1994 Respiratory respiratory effort/rhythm Overall: normal rate 01/16/2017 None Full Exam - General 1994 Cardiovascular extremities Overall: no clubbing 01/16/2017 None Full Exam - General 1994 Cardiovascular auscultation of heart Overall: regular rate 01/16/2017 None Full Exam - General 1994 Cardiovascular auscultation of heart Overall: normal heart sounds 01/16/2017 None Full Exam - General 1994 Abdomen abdominal exam Overall: no tenderness 01/16/2017 None Full Exam - General 1994 Abdomen abdominal exam Overall: normal bowel sounds 01/16/2017 None Full Exam - General 1994 Lymphatic neck nodes Overall: anterior cervical chain benign 01/16/2017 None Full Exam - General 1994 Lymphatic neck nodes Overall: posterior cervical chain benign 01/16/2017 None Full Exam - General 1994 Musculoskeletal lower extremity Inspection - knee: presence of a scar 01/16/2017 None Full Exam - General 1994 Musculoskeletal spine, ribs and pelvis Overall: spine benign 01/16/2017 None Full Exam - General 1994 Musculoskeletal spine, ribs and pelvis Overall: sacroiliac joint benign 01/16/2017 None Full Exam - General 1994 Musculoskeletal spine, ribs and pelvis Overall: good posture 01/16/2017 None Full Exam - General 1994 Musculoskeletal head and neck Overall: head atraumatic 01/16/2017 None Full Exam - General 1994 Musculoskeletal head and neck Overall: cervical spine benign 01/16/2017 None Full Exam - General 1994 Integument inspection of skin Overall: few scattered moles, no gross abnormalities 01/16/2017 None Full Exam - General 1994 Neurologic deep tendon reflexes Overall: deep tendon reflexes intact 01/16/2017 None Full Exam - General 1994 Neurologic cranial nerves Overall: crainial nerves 2 - 12 grossly intact 01/16/2017 None Full Exam - General 1994 Psychiatric orientation/consciousness Overall: oriented to person, place and time 01/16/2017 None Full Exam - General 1994 Psychiatric mood and affect Overall: normal mood and affect 01/16/2017 None Full Exam - General 1994 Integument inspection of skin Rash/Lesions: patch 01/16/2017 of dry skin with occasional wounds from excoriation of tissue on legs - worse on right lateral lower leg, on arms/forearms, deltoids and one lesion on right upper back Full Exam - General 1994 Constitutional general appearance Development: well developed 08/27/2016 None Full Exam - General 1994 Constitutional general appearance Development: appears stated age 0408/27/2016 None Full Exam - General 1994 Constitutional general appearance Hygiene/Attention to Grooming: good hygiene 08/27/2016 None Full Exam - General 1994 Eyes conjunctiva /eyelids Overall: conjunctiva clear 08/27/2016 None Full Exam - General 1994 Eyes conjunctiva /eyelids Overall: cornea clear 08/27/2016 None Full Exam - General 1994 Eyes conjunctiva /eyelids Overall: eyelids normal 08/27/2016 None Full Exam - General 1994 Eyes pupils and irises Overall: pupils equal, round, reactive to light and accomodation 08/27/2016 None Full Exam - General 1994 Ears/Nose/Throat otoscopic exam Overall: external auditory canals clear 08/27/2016 None Full Exam - General 1994 Ears/Nose/Throat otoscopic exam Overall: tympanic membranes clear 08/27/2016 None Full Exam - General 1994 Ears/Nose/Throat lips/teeth/gingiva Overall: benign lips 08/27/2016 None Full Exam - General 1994 Ears/Nose/Throat lips/teeth/gingiva Overall: normal dentition 08/27/2016 None Full Exam - General 1994 Ears/Nose/Throat oral cavity/pharynx/larynx Overall: oral mucosa clear 08/27/2016 None Full Exam - General 1994 Ears/Nose/Throat oral cavity/pharynx/larynx Overall: oropharyngeal mucosa clear 08/27/2016 None Full Exam - General 1994 Ears/Nose/Throat oral cavity/pharynx/larynx Overall: hypopharynx benign 08/27/2016 None Full Exam - General 1994 Ears/Nose/Throat oral cavity/pharynx/larynx Overall: no masses 08/27/2016 None Full Exam - General 1994 Respiratory auscultation Diffuse: expiratory stridor 08/27/2016 None Full Exam - General 1994 Respiratory respiratory effort/rhythm Overall: no retractions 08/27/2016 None Full Exam - General 1994 Respiratory respiratory effort/rhythm Overall: normal rate 08/27/2016 None Full Exam - General 1994 Cardiovascular extremities Overall: no clubbing 08/27/2016 None Full Exam - General 1994 Cardiovascular auscultation of heart Overall: regular rate 08/27/2016 None Full Exam - General 1994 Cardiovascular auscultation of heart Overall: normal heart sounds 08/27/2016 None Full Exam - General 1994 Abdomen abdominal exam Overall: no tenderness 08/27/2016 None Full Exam - General 1994 Abdomen abdominal exam Overall: normal bowel sounds 08/27/2016 None Full Exam - General 1994 Lymphatic neck nodes Overall: shotty lymphadenopathy 08/27/2016 None Full Exam - General 1994 Integument inspection of skin Overall: few scattered moles, no gross abnormalities 08/27/2016 None Full Exam - General 1994 Neurologic deep tendon reflexes Overall: deep tendon reflexes intact 08/27/2016 None Full Exam - General 1994 Neurologic cranial nerves Overall: crainial nerves 2 - 12 grossly intact 08/27/2016 None Full Exam - General 1994 Psychiatric orientation/consciousness Overall: oriented to person, place and time 08/27/2016 None Full Exam - General 1994 Psychiatric mood and affect Overall: normal mood and affect 08/27/2016 None Full Exam - General 1994 Constitutional general appearance Development: well developed 05/30/2016 None Full Exam - General 1994 Constitutional general appearance Development: appears stated age 0105/30/2016 None Full Exam - General 1994 Constitutional general appearance Hygiene/Attention to Grooming: good hygiene 05/30/2016 None Full Exam - General 1994 Eyes conjunctiva /eyelids Overall: conjunctiva clear 05/30/2016 None Full Exam - General 1994 Eyes conjunctiva /eyelids Overall: cornea clear 05/30/2016 None Full Exam - General 1994 Eyes conjunctiva /eyelids Overall: eyelids normal 05/30/2016 None Full Exam - General 1994 Eyes pupils and irises Overall: pupils equal, round, reactive to light and accomodation 05/30/2016 None Full Exam - General 1994 Ears/Nose/Throat otoscopic exam Overall: external auditory canals clear 05/30/2016 None Full Exam - General 1994 Ears/Nose/Throat otoscopic exam Overall: tympanic membranes clear 05/30/2016 None Full Exam - General 1994 Ears/Nose/Throat lips/teeth/gingiva Overall: benign lips 05/30/2016 None Full Exam - General 1994 Ears/Nose/Throat lips/teeth/gingiva Overall: normal dentition 05/30/2016 None Full Exam - General 1994 Ears/Nose/Throat oral cavity/pharynx/larynx Overall: oral mucosa clear 05/30/2016 None Full Exam - General 1994 Ears/Nose/Throat oral cavity/pharynx/larynx Overall: oropharyngeal mucosa clear 05/30/2016 None Full Exam - General 1994 Ears/Nose/Throat oral cavity/pharynx/larynx Overall: hypopharynx benign 05/30/2016 None Full Exam - General 1994 Ears/Nose/Throat oral cavity/pharynx/larynx Overall: no masses 05/30/2016 None Full Exam - General 1994 Respiratory auscultation Overall: breath sounds clear bilaterally 05/30/2016 None Full Exam - General 1994 Respiratory respiratory effort/rhythm Overall: no retractions 05/30/2016 None Full Exam - General 1994 Respiratory respiratory effort/rhythm Overall: normal rate 05/30/2016 None Full Exam - General 1994 Cardiovascular extremities Overall: no clubbing 05/30/2016 None Full Exam - General 1994 Cardiovascular auscultation of heart Overall: regular rate 05/30/2016 None Full Exam - General 1994 Cardiovascular auscultation of heart Overall: normal heart sounds 05/30/2016 None Full Exam - General 1994 Abdomen abdominal exam Overall: no tenderness 05/30/2016 None Full Exam - General 1994 Abdomen abdominal exam Overall: normal bowel sounds 05/30/2016 None Full Exam - General 1994 Lymphatic neck nodes Overall: anterior cervical chain benign 05/30/2016 None Full Exam - General 1994 Lymphatic neck nodes Overall: posterior cervical chain benign 05/30/2016 None Full Exam - General 1994 Musculoskeletal lower extremity Inspection - knee: presence of a scar 05/30/2016 None Full Exam - General 1994 Musculoskeletal spine, ribs and pelvis Overall: spine benign 05/30/2016 None Full Exam - General 1994 Musculoskeletal spine, ribs and pelvis Overall: sacroiliac joint benign 05/30/2016 None Full Exam - General 1994 Musculoskeletal spine, ribs and pelvis Overall: good posture 05/30/2016 None Full Exam - General 1994 Musculoskeletal head and neck Overall: head atraumatic 05/30/2016 None Full Exam - General 1994 Musculoskeletal head and neck Overall: cervical spine benign 05/30/2016 None Full Exam - General 1994 Integument inspection of skin Overall: few scattered moles, no gross abnormalities 05/30/2016 None Full Exam - General 1994 Neurologic deep tendon reflexes Overall: deep tendon reflexes intact 05/30/2016 None Full Exam - General 1994 Neurologic cranial nerves Overall: crainial nerves 2 - 12 grossly intact 05/30/2016 None Full Exam - General 1994 Psychiatric orientation/consciousness Overall: oriented to person, place and time 05/30/2016 None Full Exam - General 1994 Psychiatric mood and affect Overall: normal mood and affect 05/30/2016 None Full Exam - General 1994 Constitutional general appearance Development: well developed 04/19/2016 None Full Exam - General 1994 Constitutional general appearance Development: appears stated age 1204/19/2016 None Full Exam - General 1994 Constitutional general appearance Hygiene/Attention to Grooming: good hygiene 04/19/2016 None Full Exam - General 1994 Eyes conjunctiva /eyelids Overall: conjunctiva clear 04/19/2016 None Full Exam - General 1994 Eyes conjunctiva /eyelids Overall: cornea clear 04/19/2016 None Full Exam - General 1994 Eyes conjunctiva /eyelids Overall: eyelids normal 04/19/2016 None Full Exam - General 1994 Eyes pupils and irises Overall: pupils equal, round, reactive to light and accomodation 04/19/2016 None Full Exam - General 1994 Ears/Nose/Throat otoscopic exam Overall: external auditory canals clear 04/19/2016 None Full Exam - General 1994 Ears/Nose/Throat otoscopic exam Overall: tympanic membranes clear 04/19/2016 None Full Exam - General 1994 Ears/Nose/Throat lips/teeth/gingiva Overall: benign lips 04/19/2016 None Full Exam - General 1994 Ears/Nose/Throat lips/teeth/gingiva Overall: normal dentition 04/19/2016 None Full Exam - General 1994 Ears/Nose/Throat oral cavity/pharynx/larynx Overall: oral mucosa clear 04/19/2016 None Full Exam - General 1994 Ears/Nose/Throat oral cavity/pharynx/larynx Overall: oropharyngeal mucosa clear 04/19/2016 None Full Exam - General 1994 Ears/Nose/Throat oral cavity/pharynx/larynx Overall: hypopharynx benign 04/19/2016 None Full Exam - General 1994 Ears/Nose/Throat oral cavity/pharynx/larynx Overall: no masses 04/19/2016 None Full Exam - General 1994 Respiratory auscultation Overall: breath sounds clear bilaterally 04/19/2016 None Full Exam - General 1994 Respiratory respiratory effort/rhythm Overall: no retractions 04/19/2016 None Full Exam - General 1994 Respiratory respiratory effort/rhythm Overall: normal rate 04/19/2016 None Full Exam - General 1994 Cardiovascular extremities Overall: no clubbing 04/19/2016 None Full Exam - General 1994 Cardiovascular auscultation of heart Overall: regular rate 04/19/2016 None Full Exam - General 1994 Cardiovascular auscultation of heart Overall: normal heart sounds 04/19/2016 None Full Exam - General 1994 Abdomen abdominal exam Overall: no tenderness 04/19/2016 None Full Exam - General 1994 Abdomen abdominal exam Overall: normal bowel sounds 04/19/2016 None Full Exam - General 1994 Lymphatic neck nodes Overall: anterior cervical chain benign 04/19/2016 None Full Exam - General 1994 Lymphatic neck nodes Overall: posterior cervical chain benign 04/19/2016 None Full Exam - General 1994 Musculoskeletal lower extremity Inspection - knee: presence of a scar 04/19/2016 None Full Exam - General 1994 Musculoskeletal spine, ribs and pelvis Overall: spine benign 04/19/2016 None Full Exam - General 1994 Musculoskeletal spine, ribs and pelvis Overall: sacroiliac joint benign 04/19/2016 None Full Exam - General 1994 Musculoskeletal spine, ribs and pelvis Overall: good posture 04/19/2016 None Full Exam - General 1994 Musculoskeletal head and neck Overall: head atraumatic 04/19/2016 None Full Exam - General 1994 Musculoskeletal head and neck Overall: cervical spine benign 04/19/2016 None Full Exam - General 1994 Integument inspection of skin Overall: few scattered moles, no gross abnormalities 04/19/2016 None Full Exam - General 1994 Neurologic deep tendon reflexes Overall: deep tendon reflexes intact 04/19/2016 None Full Exam - General 1994 Neurologic cranial nerves Overall: crainial nerves 2 - 12 grossly intact 04/19/2016 None Full Exam - General 1994 Psychiatric orientation/consciousness Overall: oriented to person, place and time 04/19/2016 None Full Exam - General 1994 Psychiatric mood and affect Overall: normal mood and affect 04/19/2016 None Full Exam - General 1994 Constitutional general appearance Assistive Device: cane 04/19/2016 None Full Exam - General 1994 Constitutional general appearance Development: well developed 01/03/2016 None Full Exam - General 1994 Constitutional general appearance Development: appears stated age 0801/03/2016 None Full Exam - General 1994 Constitutional general appearance Hygiene/Attention to Grooming: good hygiene 01/03/2016 None Full Exam - General 1994 Eyes conjunctiva /eyelids Overall: conjunctiva clear 01/03/2016 None Full Exam - General 1994 Eyes conjunctiva /eyelids Overall: cornea clear 01/03/2016 None Full Exam - General 1994 Eyes conjunctiva /eyelids Overall: eyelids normal 01/03/2016 None Full Exam - General 1994 Eyes pupils and irises Overall: pupils equal, round, reactive to light and accomodation 01/03/2016 None Full Exam - General 1994 Ears/Nose/Throat otoscopic exam Overall: external auditory canals clear 01/03/2016 None Full Exam - General 1994 Ears/Nose/Throat otoscopic exam Overall: tympanic membranes clear 01/03/2016 None Full Exam - General 1994 Ears/Nose/Throat lips/teeth/gingiva Overall: benign lips 01/03/2016 None Full Exam - General 1994 Ears/Nose/Throat lips/teeth/gingiva Overall: normal dentition 01/03/2016 None Full Exam - General 1994 Ears/Nose/Throat oral cavity/pharynx/larynx Overall: oral mucosa clear 01/03/2016 None Full Exam - General 1994 Ears/Nose/Throat oral cavity/pharynx/larynx Overall: oropharyngeal mucosa clear 01/03/2016 None Full Exam - General 1994 Ears/Nose/Throat oral cavity/pharynx/larynx Overall: hypopharynx benign 01/03/2016 None Full Exam - General 1994 Ears/Nose/Throat oral cavity/pharynx/larynx Overall: no masses 01/03/2016 None Full Exam - General 1994 Respiratory auscultation Overall: breath sounds clear bilaterally 01/03/2016 None Full Exam - General 1994 Respiratory respiratory effort/rhythm Overall: no retractions 01/03/2016 None Full Exam - General 1994 Respiratory respiratory effort/rhythm Overall: normal rate 01/03/2016 None Full Exam - General 1994 Cardiovascular extremities Overall: no clubbing 01/03/2016 None Full Exam - General 1994 Cardiovascular auscultation of heart Overall: regular rate 01/03/2016 None Full Exam - General 1994 Cardiovascular auscultation of heart Overall: normal heart sounds 01/03/2016 None Full Exam - General 1994 Abdomen abdominal exam Overall: no tenderness 01/03/2016 None Full Exam - General 1994 Abdomen abdominal exam Overall: normal bowel sounds 01/03/2016 None Full Exam - General 1994 Lymphatic neck nodes Overall: anterior cervical chain benign 01/03/2016 None Full Exam - General 1994 Lymphatic neck nodes Overall: posterior cervical chain benign 01/03/2016 None Full Exam - General 1994 Musculoskeletal spine, ribs and pelvis Overall: spine benign 01/03/2016 None Full Exam - General 1994 Musculoskeletal spine, ribs and pelvis Overall: sacroiliac joint benign 01/03/2016 None Full Exam - General 1994 Musculoskeletal spine, ribs and pelvis Overall: good posture 01/03/2016 None Full Exam - General 1994 Musculoskeletal head and neck Overall: head atraumatic 01/03/2016 None Full Exam - General 1994 Musculoskeletal head and neck Overall: cervical spine benign 01/03/2016 None Full Exam - General 1994 Integument inspection of skin Overall: few scattered moles, no gross abnormalities 01/03/2016 None Full Exam - General 1994 Neurologic deep tendon reflexes Overall: deep tendon reflexes intact 01/03/2016 None Full Exam - General 1994 Neurologic cranial nerves Overall: crainial nerves 2 - 12 grossly intact 01/03/2016 None Full Exam - General 1994 Psychiatric orientation/consciousness Overall: oriented to person, place and time 01/03/2016 None Full Exam - General 1994 Psychiatric mood and affect Overall: normal mood and affect 01/03/2016 None Full Exam - General 1994 Musculoskeletal lower extremity Inspection - knee: presence of a scar 01/03/2016 None Full Exam - General 1994 Constitutional general appearance Development: well developed 10/03/2015 None Full Exam - General 1994 Constitutional general appearance Development: appears stated age 0510/03/2015 None Full Exam - General 1994 Constitutional general appearance Hygiene/Attention to Grooming: good hygiene 10/03/2015 None Full Exam - General 1994 Eyes conjunctiva /eyelids Overall: conjunctiva clear 10/03/2015 None Full Exam - General 1994 Eyes conjunctiva /eyelids Overall: cornea clear 10/03/2015 None Full Exam - General 1994 Eyes conjunctiva /eyelids Overall: eyelids normal 10/03/2015 None Full Exam - General 1994 Eyes pupils and irises Overall: pupils equal, round, reactive to light and accomodation 10/03/2015 None Full Exam - General 1994 Ears/Nose/Throat otoscopic exam Overall: external auditory canals clear 10/03/2015 None Full Exam - General 1994 Ears/Nose/Throat otoscopic exam Overall: tympanic membranes clear 10/03/2015 None Full Exam - General 1994 Ears/Nose/Throat lips/teeth/gingiva Overall: benign lips 10/03/2015 None Full Exam - General 1994 Ears/Nose/Throat lips/teeth/gingiva Overall: normal dentition 10/03/2015 None Full Exam - General 1994 Ears/Nose/Throat oral cavity/pharynx/larynx Overall: oral mucosa clear 10/03/2015 None Full Exam - General 1994 Ears/Nose/Throat oral cavity/pharynx/larynx Overall: oropharyngeal mucosa clear 10/03/2015 None Full Exam - General 1994 Ears/Nose/Throat oral cavity/pharynx/larynx Overall: hypopharynx benign 10/03/2015 None Full Exam - General 1994 Ears/Nose/Throat oral cavity/pharynx/larynx Overall: no masses 10/03/2015 None Full Exam - General 1994 Respiratory auscultation Overall: breath sounds clear bilaterally 10/03/2015 None Full Exam - General 1994 Respiratory respiratory effort/rhythm Overall: no retractions 10/03/2015 None Full Exam - General 1994 Respiratory respiratory effort/rhythm Overall: normal rate 10/03/2015 None Full Exam - General 1994 Cardiovascular extremities Overall: no clubbing 10/03/2015 None Full Exam - General 1994 Cardiovascular auscultation of heart Overall: regular rate 10/03/2015 None Full Exam - General 1994 Cardiovascular auscultation of heart Overall: normal heart sounds 10/03/2015 None Full Exam - General 1994 Abdomen abdominal exam Overall: no tenderness 10/03/2015 None Full Exam - General 1994 Abdomen abdominal exam Overall: normal bowel sounds 10/03/2015 None Full Exam - General 1994 Lymphatic neck nodes Overall: anterior cervical chain benign 10/03/2015 None Full Exam - General 1994 Lymphatic neck nodes Overall: posterior cervical chain benign 10/03/2015 None Full Exam - General 1994 Musculoskeletal spine, ribs and pelvis Overall: spine benign 10/03/2015 None Full Exam - General 1994 Musculoskeletal spine, ribs and pelvis Overall: sacroiliac joint benign 10/03/2015 None Full Exam - General 1994 Musculoskeletal spine, ribs and pelvis Overall: good posture 10/03/2015 None Full Exam - General 1994 Musculoskeletal head and neck Overall: head atraumatic 10/03/2015 None Full Exam - General 1994 Musculoskeletal head and neck Overall: cervical spine benign 10/03/2015 None Full Exam - General 1994 Integument inspection of skin Overall: few scattered moles, no gross abnormalities 10/03/2015 None Full Exam - General 1994 Neurologic deep tendon reflexes Overall: deep tendon reflexes intact 10/03/2015 None Full Exam - General 1994 Neurologic cranial nerves Overall: crainial nerves 2 - 12 grossly intact 10/03/2015 None Full Exam - General 1994 Psychiatric orientation/consciousness Overall: oriented to person, place and time 10/03/2015 None Full Exam - General 1994 Psychiatric mood and affect Overall: normal mood and affect 10/03/2015 None Full Exam - General 1994 Constitutional general appearance Development: well developed 05/25/2015 None Full Exam - General 1994 Constitutional general appearance Development: appears stated age 0105/25/2015 None Full Exam - General 1994 Constitutional general appearance Hygiene/Attention to Grooming: good hygiene 05/25/2015 None Full Exam - General 1994 Eyes conjunctiva /eyelids Overall: conjunctiva clear 05/25/2015 None Full Exam - General 1994 Eyes conjunctiva /eyelids Overall: cornea clear 05/25/2015 None Full Exam - General 1994 Eyes conjunctiva /eyelids Overall: eyelids normal 05/25/2015 None Full Exam - General 1994 Eyes pupils and irises Overall: pupils equal, round, reactive to light and accomodation 05/25/2015 None Full Exam - General 1994 Ears/Nose/Throat lips/teeth/gingiva Overall: benign lips 05/25/2015 None Full Exam - General 1994 Ears/Nose/Throat lips/teeth/gingiva Overall: normal dentition 05/25/2015 None Full Exam - General 1994 Ears/Nose/Throat oral cavity/pharynx/larynx Overall: oral mucosa clear 05/25/2015 None Full Exam - General 1994 Ears/Nose/Throat oral cavity/pharynx/larynx Overall: oropharyngeal mucosa clear 05/25/2015 None Full Exam - General 1994 Ears/Nose/Throat oral cavity/pharynx/larynx Overall: no masses 05/25/2015 None Full Exam - General 1994 Respiratory auscultation Overall: breath sounds clear bilaterally 05/25/2015 None Full Exam - General 1994 Respiratory respiratory effort/rhythm Overall: no retractions 05/25/2015 None Full Exam - General 1994 Respiratory respiratory effort/rhythm Overall: normal rate 05/25/2015 None Full Exam - General 1994 Cardiovascular extremities Overall: no clubbing 05/25/2015 None Full Exam - General 1994 Cardiovascular auscultation of heart Overall: regular rate 05/25/2015 None Full Exam - General 1994 Cardiovascular auscultation of heart Overall: normal heart sounds 05/25/2015 None Full Exam - General 1994 Musculoskeletal spine, ribs and pelvis Overall: good posture 05/25/2015 None Full Exam - General 1994 Musculoskeletal head and neck Overall: head atraumatic 05/25/2015 None Full Exam - General 1994 Musculoskeletal head and neck Overall: cervical spine benign 05/25/2015 None Full Exam - General 1994 Psychiatric orientation/consciousness Overall: oriented to person, place and time 05/25/2015 None Full Exam - General 1994 Psychiatric mood and affect Overall: normal mood and affect 05/25/2015 None Full Exam - General 1994 Musculoskeletal lower extremity Palpation - knee: crepitus 05/25/2015 None Full Exam - General 1994 Musculoskeletal lower extremity ROM - knee: crepitus 05/25/2015 None Full Exam - General 1994 Musculoskeletal lower extremity ROM - knee: pain with flexion 05/25/2015 None Full Exam - General 1994 Constitutional general appearance Development: well developed 04/03/2015 None Full Exam - General 1994 Constitutional general appearance Development: appears stated age 1104/03/2015 None Full Exam - General 1994 Constitutional general appearance Hygiene/Attention to Grooming: good hygiene 04/03/2015 None Full Exam - General 1994 Eyes conjunctiva /eyelids Overall: conjunctiva clear 04/03/2015 None Full Exam - General 1994 Eyes conjunctiva /eyelids Overall: cornea clear 04/03/2015 None Full Exam - General 1994 Eyes conjunctiva /eyelids Overall: eyelids normal 04/03/2015 None Full Exam - General 1994 Eyes pupils and irises Overall: pupils equal, round, reactive to light and accomodation 04/03/2015 None Full Exam - General 1994 Ears/Nose/Throat lips/teeth/gingiva Overall: benign lips 04/03/2015 None Full Exam - General 1994 Ears/Nose/Throat lips/teeth/gingiva Overall: normal dentition 04/03/2015 None Full Exam - General 1994 Ears/Nose/Throat oral cavity/pharynx/larynx Overall: oral mucosa clear 04/03/2015 None Full Exam - General 1994 Ears/Nose/Throat oral cavity/pharynx/larynx Overall: oropharyngeal mucosa clear 04/03/2015 None Full Exam - General 1994 Ears/Nose/Throat oral cavity/pharynx/larynx Overall: hypopharynx benign 04/03/2015 None Full Exam - General 1994 Ears/Nose/Throat oral cavity/pharynx/larynx Overall: no masses 04/03/2015 None Full Exam - General 1994 Respiratory auscultation Overall: breath sounds clear bilaterally 04/03/2015 None Full Exam - General 1994 Respiratory respiratory effort/rhythm Overall: no retractions 04/03/2015 None Full Exam - General 1994 Respiratory respiratory effort/rhythm Overall: normal rate 04/03/2015 None Full Exam - General 1994 Cardiovascular extremities Overall: no clubbing 04/03/2015 None Full Exam - General 1994 Cardiovascular auscultation of heart Overall: regular rate 04/03/2015 None Full Exam - General 1994 Cardiovascular auscultation of heart Overall: normal heart sounds 04/03/2015 None Full Exam - General 1994 Lymphatic neck nodes Overall: anterior cervical chain benign 04/03/2015 None Full Exam - General 1994 Lymphatic neck nodes Overall: posterior cervical chain benign 04/03/2015 None Full Exam - General 1994 Musculoskeletal spine, ribs and pelvis Overall: good posture 04/03/2015 None Full Exam - General 1994 Musculoskeletal head and neck Overall: head atraumatic 04/03/2015 None Full Exam - General 1994 Musculoskeletal head and neck Overall: cervical spine benign 04/03/2015 None Full Exam - General 1994 Psychiatric orientation/consciousness Overall: oriented to person, place and time 04/03/2015 None Full Exam - General 1994 Psychiatric mood and affect Overall: normal mood and affect 04/03/2015 None Full Exam - General 1994 Integument inspection of skin Location: face 04/03/2015 right upper cheek - dark lesion - pt reports that it is increasing in size Full Exam - General 1994 Constitutional general appearance Development: well developed 11/23/2014 None Full Exam - General 1994 Constitutional general appearance Development: appears stated age 0711/23/2014 None Full Exam - General 1994 Constitutional general appearance Hygiene/Attention to Grooming: good hygiene 11/23/2014 None Full Exam - General 1994 Eyes conjunctiva /eyelids Overall: conjunctiva clear 11/23/2014 None Full Exam - General 1994 Eyes conjunctiva /eyelids Overall: cornea clear 11/23/2014 None Full Exam - General 1994 Eyes conjunctiva /eyelids Overall: eyelids normal 11/23/2014 None Full Exam - General 1994 Eyes pupils and irises Overall: pupils equal, round, reactive to light and accomodation 11/23/2014 None Full Exam - General 1994 Ears/Nose/Throat otoscopic exam Overall: external auditory canals clear 11/23/2014 None Full Exam - General 1994 Ears/Nose/Throat otoscopic exam Overall: tympanic membranes clear 11/23/2014 None Full Exam - General 1994 Ears/Nose/Throat lips/teeth/gingiva Overall: benign lips 11/23/2014 None Full Exam - General 1994 Ears/Nose/Throat lips/teeth/gingiva Overall: normal dentition 11/23/2014 None Full Exam - General 1994 Ears/Nose/Throat oral cavity/pharynx/larynx Overall: oral mucosa clear 11/23/2014 None Full Exam - General 1994 Ears/Nose/Throat oral cavity/pharynx/larynx Overall: oropharyngeal mucosa clear 11/23/2014 None Full Exam - General 1994 Ears/Nose/Throat oral cavity/pharynx/larynx Overall: hypopharynx benign 11/23/2014 None Full Exam - General 1994 Ears/Nose/Throat oral cavity/pharynx/larynx Overall: no masses 11/23/2014 None Full Exam - General 1994 Respiratory auscultation Overall: breath sounds clear bilaterally 11/23/2014 None Full Exam - General 1994 Respiratory respiratory effort/rhythm Overall: no retractions 11/23/2014 None Full Exam - General 1994 Respiratory respiratory effort/rhythm Overall: normal rate 11/23/2014 None Full Exam - General 1994 Cardiovascular extremities Overall: no clubbing 11/23/2014 None Full Exam - General 1994 Cardiovascular auscultation of heart Overall: regular rate 11/23/2014 None Full Exam - General 1994 Cardiovascular auscultation of heart Overall: normal heart sounds 11/23/2014 None Full Exam - General 1994 Abdomen abdominal exam Overall: no tenderness 11/23/2014 None Full Exam - General 1994 Abdomen abdominal exam Overall: normal bowel sounds 11/23/2014 None Full Exam - General 1994 Lymphatic neck nodes Overall: anterior cervical chain benign 11/23/2014 None Full Exam - General 1994 Lymphatic neck nodes Overall: posterior cervical chain benign 11/23/2014 None Full Exam - General 1994 Musculoskeletal spine, ribs and pelvis Overall: spine benign 11/23/2014 None Full Exam - General 1994 Musculoskeletal spine, ribs and pelvis Overall: sacroiliac joint benign 11/23/2014 None Full Exam - General 1994 Musculoskeletal spine, ribs and pelvis Overall: good posture 11/23/2014 None Full Exam - General 1994 Musculoskeletal head and neck Overall: head atraumatic 11/23/2014 None Full Exam - General 1994 Musculoskeletal head and neck Overall: cervical spine benign 11/23/2014 None Full Exam - General 1994 Integument inspection of skin Overall: few scattered moles, no gross abnormalities 11/23/2014 None Full Exam - General 1994 Neurologic deep tendon reflexes Overall: deep tendon reflexes intact 11/23/2014 None Full Exam - General 1994 Neurologic cranial nerves Overall: crainial nerves 2 - 12 grossly intact 11/23/2014 None Full Exam - General 1994 Psychiatric orientation/consciousness Overall: oriented to person, place and time 11/23/2014 None Full Exam - General 1994 Psychiatric mood and affect Overall: normal mood and affect 11/23/2014 None Full Exam - General 1994 Constitutional general appearance Development: appears stated age 0509/20/2014 None Full Exam - General 1994 Constitutional general appearance Development: well developed 09/20/2014 None Full Exam - General 1994 Constitutional general appearance Hygiene/Attention to Grooming: good hygiene 09/20/2014 None Full Exam - General 1994 Eyes conjunctiva /eyelids Overall: conjunctiva clear 09/20/2014 None Full Exam - General 1994 Eyes conjunctiva /eyelids Overall: cornea clear 09/20/2014 None Full Exam - General 1994 Eyes conjunctiva /eyelids Overall: eyelids normal 09/20/2014 None Full Exam - General 1994 Eyes pupils and irises Overall: pupils equal, round, reactive to light and accomodation 09/20/2014 None Full Exam - General 1994 Ears/Nose/Throat otoscopic exam Overall: external auditory canals clear 09/20/2014 None Full Exam - General 1994 Ears/Nose/Throat otoscopic exam Overall: tympanic membranes clear 09/20/2014 None Full Exam - General 1994 Ears/Nose/Throat lips/teeth/gingiva Overall: benign lips 09/20/2014 None Full Exam - General 1994 Ears/Nose/Throat lips/teeth/gingiva Overall: normal dentition 09/20/2014 None Full Exam - General 1994 Ears/Nose/Throat oral cavity/pharynx/larynx Overall: hypopharynx benign 09/20/2014 None Full Exam - General 1994 Ears/Nose/Throat oral cavity/pharynx/larynx Overall: no masses 09/20/2014 None Full Exam - General 1994 Ears/Nose/Throat oral cavity/pharynx/larynx Overall: oral mucosa clear 09/20/2014 None Full Exam - General 1994 Ears/Nose/Throat oral cavity/pharynx/larynx Overall: oropharyngeal mucosa clear 09/20/2014 None Full Exam - General 1994 Respiratory respiratory effort/rhythm Overall: no retractions 09/20/2014 None Full Exam - General 1994 Respiratory respiratory effort/rhythm Overall: normal rate 09/20/2014 None Full Exam - General 1994 Cardiovascular extremities Overall: no clubbing 09/20/2014 None Full Exam - General 1994 Cardiovascular auscultation of heart Overall: normal heart sounds 09/20/2014 None Full Exam - General 1994 Cardiovascular auscultation of heart Overall: regular rate 09/20/2014 None Full Exam - General 1994 Abdomen abdominal exam Overall: no tenderness 09/20/2014 None Full Exam - General 1994 Abdomen abdominal exam Overall: normal bowel sounds 09/20/2014 None Full Exam - General 1994 Integument inspection of skin Overall: few scattered moles, no gross abnormalities 09/20/2014 None Full Exam - General 1994 Neurologic deep tendon reflexes Overall: deep tendon reflexes intact 09/20/2014 None Full Exam - General 1994 Neurologic cranial nerves Overall: crainial nerves 2 - 12 grossly intact 09/20/2014 None Full Exam - General 1994 Psychiatric orientation/consciousness Overall: oriented to person, place and time 09/20/2014 None Full Exam - General 1994 Psychiatric mood and affect Overall: normal mood and affect 09/20/2014 None Full Exam - General 1994 Respiratory auscultation Diffuse: expiratory stridor 09/20/2014 None Full Exam - General 1994 Lymphatic neck nodes Overall: shotty lymphadenopathy 09/20/2014 None Procedures Procedure Codes Date ROCEPHIN, PER 250 MG CPT-4: J0696 08/27/2016 DRAIN/INJECT JOINT/BURSA CPT-4: 73394 05/25/2015 TRIAMCINOLONE ACET INJ NOS CPT-4: J3301 05/25/2015 TRIAMCINOLONE ACET INJ NOS CPT-4: J3301 09/20/2014 ROCEPHIN, PER 250 MG CPT-4: J0696 09/20/2014 THER/PROPH/DIAG INJ SC/IM CPT-4: 14276 09/20/2014 Vital Signs Date Vital 06/22/2018 Blood Pressure 1: 142/68 Code : 8480-6 BMI: 30.9 Code : 24148-3 Heart Rate 1 : 57 bpm Height: 5'9" SpO2: 95% Weight: 209 lbs 02/18/2018 Blood Pressure 1: 128/72 Code : 8480-6 BMI: 31.5 Code : 27204-9 Heart Rate 1 : 68 bpm Height: 5'9" SpO2: 97% Weight: 213 lbs 10/06/2017 Blood Pressure 1: 134/70 Code : 8480-6 BMI: 31.5 Code : 06865-3 Heart Rate 1 : 65 bpm Height: 5'9" SpO2: 97% Weight: 213 lbs 06/23/2017 Blood Pressure 1: 136/72 Code : 8480-6 BMI: 31.5 Code : 74841-5 Heart Rate 1 : 64 bpm Height: 5'9" SpO2: 93% Weight: 213 lbs 05/21/2017 Blood Pressure 1: 118/80 Code : 8480-6 BMI: 32.2 Code : 37968-3 Heart Rate 1 : 76 bpm Height: 5'9" SpO2: 98% Weight: 218 lbs 01/16/2017 Blood Pressure 1: 132/78 Code : 8480-6 BMI: 31.0 Code : 36227-9 Heart Rate 1 : 63 bpm Height: 5'9" SpO2: 98% Weight: 210 lbs 08/27/2016 Blood Pressure 1: 128/72 Code : 8480-6 BMI: 30.4 Code : 97015-3 Heart Rate 1 : 69 bpm Height: 5'9" SpO2: 95% Temperature: 37.1 (C) / 98.7 (F) Weight: 206 lbs 05/30/2016 Blood Pressure 1: 136/64 Code : 8480-6 BMI: 30.7 Code : 04924-1 Heart Rate 1 : 77 bpm Height: 5'9" SpO2: 94% Weight: 208 lbs 04/19/2016 Blood Pressure 1: 108/68 Code : 8480-6 BMI: 28.8 Code : 24483-9 Height: 5'9" SpO2: 97% Weight: 195 lbs 01/03/2016 Blood Pressure 1: 120/70 Code : 8480-6 BMI: 31.0 Code : 98258-5 Heart Rate 1 : 81 bpm Height: 5'9" SpO2: 98% Weight: 210 lbs 10/03/2015 Blood Pressure 1: 128/68 Code : 8480-6 BMI: 31.7 Code : 45256-7 Heart Rate 1 : 60 bpm Height: 5'9" SpO2: 97% Weight: 215 lbs 05/25/2015 Blood Pressure 1: 138/84 Code : 8480-6 BMI: 32.6 Code : 25204-6 Heart Rate 1 : 60 bpm Height: 5'9" SpO2: 96% Weight: 221 lbs 04/03/2015 Blood Pressure 1: 142/74 Code : 8480-6 Blood Pressure 1: 136/70 Code: 8480-6 BMI: 32.5 Code: 28997-0 Heart Rate 1: 59 bpm Height: 5'9" SpO2: 94% Weight: 220 lbs 11/23/2014 Blood Pressure 1: 138/72 Code : 8480-6 BMI: 32.0 Code : 56854-4 Heart Rate 1 : 61 bpm Height: 5'9" SpO2: 94% Weight: 217 lbs 09/20/2014 Blood Pressure 1: 130/72 Code : 8480-6 Heart Rate 1: 84 bpm SpO2: 98% Weight: 228 lbs Functional Status No Functional Status data History of Present Illness Symptom Name Status Result Effective Date Notes Quality chronic 06/22 None Quality primary hypertension 06/22/2018 None Onset and Resolution ongoing 06/22/2018 None Onset of Symptom during adulthood 06/22/2018 None Blood Pressure Values not checking blood pressure at home 06/22/2018 None Alleviating Factors medication 06/22/2018 None Pertinent Findings Denies dizziness 06/22/2018 None Pertinent Findings Denies dyspnea 06/22/2018 None Pertinent Findings edema 06/22/2018 in the right knee Onset and Resolution gradual in onset 06/22/2018 None Onset of Symptom during adulthood 06/22/2018 None Alleviating Factors medication 06/22/2018 None Exacerbating Factors diet 06/22/2018 None Onset of Symptom onset as an adult 06/22/2018 None Quality non-insulin dependent 06/22/2018 None Quality chronic 06/22 None Alleviating Factors diet only 06/22/2018 None Exacerbating Factors diet 06/22/2018 None Test results Pt not checking blood glucose readings at home 06/22/2018 None Location on both sides 06/22/2018 None Quality chronic 06/22 None Quality aching 2018 None Quality worsening None Frequency of Episodes increasing 06/22/2018 None Exacerbating Factors activity 06/22/2018 None Exacerbating Factors changing position 06/22/2018 None hypertension Quality primary hypertension 02/18/2018 None hypertension Quality stable 02/18/2018 None hypertension Onset and Resolution ongoing 02/18/2018 None hypertension Onset of Symptom during adulthood 02/18/2018 None hypertension Blood Pressure Values not checking blood pressure at home 02/18/2018 None hypertension Alleviating Factors medication 02/18/2018 None hypertension Pertinent Findings Denies dizziness 02/18/2018 None hypertension Pertinent Findings Denies dyspnea 02/18/2018 None hypertension Pertinent Findings edema 02/18/2018 in the right knee hyperlipidemia Onset of Symptom during adulthood 02/18/2018 None hyperlipidemia Alleviating Factors medication 02/18/2018 None hyperlipidemia Exacerbating Factors diet 02/18/2018 None hyperlipidemia Onset and Resolution gradual in onset 02/18/2018 None knee pain Location on the left 02/18/2018 None knee pain Location on the right 02/18/2018 None knee pain Quality tenderness 02/18/2018 None knee pain Quality chronic 02/18/2018 None knee pain Quality intermittent 02/18/2018 None knee pain Limitation on Activities allows weight bearing activity 02/18/2018 None knee pain Severity mild 02/18/2018 None knee pain Exacerbating Factors weight bearing 02/18/2018 None hypertension Quality chronic 02/18/2018 None hypertension Quality primary hypertension 10/06/2017 None hypertension Quality stable 10/06/2017 None hypertension Onset and Resolution ongoing 10/06/2017 None hypertension Onset of Symptom during adulthood 10/06/2017 None hypertension Blood Pressure Values not checking blood pressure at home 10/06/2017 None hypertension Alleviating Factors medication 10/06/2017 None hypertension Pertinent Findings Denies dizziness 10/06/2017 None hypertension Pertinent Findings Denies dyspnea 10/06/2017 None hypertension Pertinent Findings edema 10/06/2017 in the right knee hyperlipidemia Onset and Resolution gradual in onset 10/06/2017 None hyperlipidemia Onset of Symptom during adulthood 10/06/2017 None hyperlipidemia Alleviating Factors medication 10/06/2017 None hyperlipidemia Exacerbating Factors diet 10/06/2017 None knee pain Location on the right 10/06/2017 None knee pain Quality tenderness 10/06/2017 None knee pain Quality intermittent 10/06/2017 None knee pain Limitation on Activities allows weight bearing activity 10/06/2017 None knee pain Severity mild 10/06/2017 None knee pain Exacerbating Factors weight bearing 10/06/2017 None sores Quality recurrent 10/06/2017 None sores Quality dry 08/2017 None sores Quality pruritic 10/06/2017 None sores Onset and Resolution ongoing 10/06/2017 None sores Onset of Symptom 1+ years ago 10/06/2017 None sores Alleviating Factors treatment medication 10/06/2017 None sores Location-Extremities on both arms 10/06/2017 None sores Location-Extremities on both legs 10/06/2017 None sores Quality improving 10/06/2017 None sores Frequency of Episodes decreasing 10/06/2017 None knee pain Location on the left 10/06/2017 None knee pain Quality chronic 10/06/2017 None sores Quality recurrent 06/23/2017 None sores Quality dry None sores Quality pruritic 06/23/2017 None sores Onset and Resolution ongoing 06/23/2017 None sores Onset of Symptom 1+ years ago 06/23/2017 None sores Alleviating Factors treatment medication 06/23/2017 None sores Location-Major on the upper body 06/23/2017 None sores Location-Major on the lower body 06/23/2017 None sores Location-Major on the back 06/23/2017 None sores Location-Trunk on the lower back 06/23/2017 None sores Color erythematous 06/23/2017 None sores Location-Extremities on both arms 06/23/2017 None sores Location-Extremities on both legs 06/23/2017 None hypertension Quality primary hypertension 05/21/2017 None hypertension Onset and Resolution ongoing 05/21/2017 None hypertension Onset of Symptom during adulthood 05/21/2017 None hypertension Blood Pressure Values not checking blood pressure at home 05/21/2017 None hypertension Alleviating Factors medication 05/21/2017 None hypertension Pertinent Findings Denies dizziness 05/21/2017 None hypertension Pertinent Findings dyspnea 05/21/2017 with exercise or activity hypertension Pertinent Findings edema 05/21/2017 in the right knee hyperlipidemia Onset and Resolution gradual in onset 05/21/2017 None hyperlipidemia Onset of Symptom during adulthood 05/21/2017 None hyperlipidemia Alleviating Factors medication 05/21/2017 None hyperlipidemia Exacerbating Factors diet 05/21/2017 None knee pain Location on the right 05/21/2017 None knee pain Quality tenderness 05/21/2017 None knee pain Quality intermittent 05/21/2017 None knee pain Limitation on Activities allows weight bearing activity 05/21/2017 None knee pain Severity mild 05/21/2017 None knee pain Exacerbating Factors weight bearing 05/21/2017 None sores Quality recurrent 05/21/2017 None sores Quality dry None sores Quality pruritic 05/21/2017 None sores Onset and Resolution ongoing 05/21/2017 None sores Alleviating Factors treatment medication 05/21/2017 None sores Onset of Symptom 1+ years ago 05/21/2017 None sores Location-Major on the arms 05/21/2017 None sores Location-Major on the legs 05/21/2017 None sores Location-Major on the back 05/21/2017 None hypertension Quality stable 05/21/2017 None hypertension Onset and Resolution ongoing 01/16/2017 None hypertension Onset of Symptom during adulthood 01/16/2017 None hypertension Blood Pressure Values not checking blood pressure at home 01/16/2017 None hypertension Alleviating Factors medication 01/16/2017 None hypertension Pertinent Findings Denies dizziness 01/16/2017 None hypertension Pertinent Findings edema 01/16/2017 in the right knee hypertension Quality primary hypertension 01/16/2017 None hyperlipidemia Onset and Resolution gradual in onset 01/16/2017 None hyperlipidemia Onset of Symptom during adulthood 01/16/2017 None hyperlipidemia Alleviating Factors medication 01/16/2017 None hyperlipidemia Exacerbating Factors diet 01/16/2017 None hypertension Pertinent Findings Denies dyspnea 01/16/2017 None knee pain Location on the right 01/16/2017 None knee pain Quality intermittent 01/16/2017 None knee pain Quality tenderness 01/16/2017 None knee pain Limitation on Activities allows weight bearing activity 01/16/2017 None knee pain Severity mild 01/16/2017 None knee pain Exacerbating Factors weight bearing 01/16/2017 None sores Location-Major on the legs 01/16/2017 None sores Location-Extremities on both legs 01/16/2017 None sores Quality recurrent 01/16/2017 None sores Quality dry None sores Quality pruritic 01/16/2017 None sores Color red 2016 None sores Onset and Resolution ongoing 01/16/2017 None sores Onset of Symptom ~9 months ago 01/16/2017 None sores Prior Treatments partially responsive to treatment 01/16/2017 None sores Alleviating Factors treatment medication 01/16/2017 None hypertension Onset and Resolution ongoing 08/27/2016 None hypertension Onset of Symptom during adulthood 08/27/2016 None hypertension Blood Pressure Values not checking blood pressure at home 08/27/2016 None hypertension Alleviating Factors medication 08/27/2016 None hypertension Pertinent Findings Denies dizziness 08/27/2016 None hypertension Pertinent Findings edema 08/27/2016 in the right leg knee pain Location on the right 08/27/2016 None knee pain Quality intermittent 08/27/2016 None hypertension Quality stable 08/27/2016 None knee pain Quality tenderness 08/27/2016 None knee pain Exacerbating Factors extension of the knee 08/27/2016 None knee pain Pertinent Findings stiffness 08/27/2016 None knee pain Pertinent Findings swelling 08/27/2016 None knee pain Pertinent Findings pain with movement 08/27/2016 None knee pain Exacerbating Factors weight bearing 08/27/2016 None cough Quality acute None cough Quality intermittent 08/27/2016 None cough Onset and Resolution sudden in onset 08/27/2016 None cough Onset of Symptom 3-4 days ago 08/27/2016 None cough Pertinent Findings Denies chills 08/27/2016 None cough Pertinent Findings Denies fever 08/27/2016 None cough Pertinent Findings dyspnea 08/27/2016 None cough Pertinent Findings muscle aches 08/27/2016 None cough Pertinent Findings nasal congestion 08/27/2016 None cough Pertinent Findings Denies nausea 08/27/2016 None cough Pertinent Findings Denies sputum production 08/27/2016 None cough Pertinent Findings Denies vomiting 08/27/2016 None hypertension Onset and Resolution ongoing 05/30/2016 None hypertension Onset of Symptom during adulthood 05/30/2016 None hypertension Blood Pressure Values not checking blood pressure at home 05/30/2016 None hypertension Alleviating Factors medication 05/30/2016 None hypertension Pertinent Findings Denies dizziness 05/30/2016 None hypertension Pertinent Findings Denies dyspnea 05/30/2016 None hyperlipidemia Onset of Symptom during adulthood 05/30/2016 None hyperlipidemia Alleviating Factors medication 05/30/2016 None hyperlipidemia Exacerbating Factors diet 05/30/2016 None hyperlipidemia Onset and Resolution gradual in onset 05/30/2016 None hyperlipidemia Onset and Resolution ongoing 05/30/2016 None hypertension Onset and Resolution ongoing 04/19/2016 None hypertension Onset of Symptom during adulthood 04/19/2016 None hypertension Blood Pressure Values not checking blood pressure at home 04/19/2016 None hypertension Alleviating Factors medication 04/19/2016 None hypertension Pertinent Findings Denies dizziness 04/19/2016 None hypertension Pertinent Findings Denies dyspnea 04/19/2016 None hyperlipidemia Onset and Resolution gradual in onset 04/19/2016 None hyperlipidemia Onset and Resolution ongoing 04/19/2016 None hyperlipidemia Onset of Symptom during adulthood 04/19/2016 None hyperlipidemia Alleviating Factors medication 04/19/2016 None hyperlipidemia Exacerbating Factors diet 04/19/2016 None knee pain Location on the right 01/03/2016 None knee pain Quality dull pain 01/03/2016 None knee pain Quality intermittent 01/03/2016 None knee pain Onset and Resolution gradual in onset 01/03/2016 None knee pain Frequency of Episodes daily 01/03/2016 None knee pain Limitation on Activities allows weight bearing activity 01/03/2016 None knee pain Limitation on Activities moderately limits activities 01/03/2016 None knee pain Alleviating Factors rest 01/03/2016 None knee pain Exacerbating Factors exertion 01/03/2016 None knee pain Pertinent Findings pain with movement 01/03/2016 None hypertension Onset and Resolution ongoing 01/03/2016 None hypertension Onset of Symptom during adulthood 01/03/2016 None hypertension Blood Pressure Values not checking blood pressure at home 01/03/2016 None hypertension Alleviating Factors medication 01/03/2016 None hypertension Pertinent Findings Denies dizziness 01/03/2016 None hypertension Pertinent Findings Denies dyspnea 01/03/2016 None hyperlipidemia Onset and Resolution gradual in onset 01/03/2016 None hyperlipidemia Onset and Resolution ongoing 01/03/2016 None hyperlipidemia Onset of Symptom during adulthood 01/03/2016 None hyperlipidemia Alleviating Factors medication 01/03/2016 None hyperlipidemia Exacerbating Factors diet 01/03/2016 None knee pain Location on the left 01/03/2016 -improved knee pain Pertinent Findings swelling 01/03/2016 of the right knee insomnia Quality intermittent 01/03/2016 None insomnia Quality disrupted sleep 01/03/2016 None insomnia Onset and Resolution ongoing 01/03/2016 None insomnia Onset of Symptom 5 weeks ago 01/03/2016 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 insomnia Quality acute 01/03/2016 None knee pain Location on the left 10/03/2015 None knee pain Location on the right 10/03/2015 None knee pain Quality dull pain 10/03/2015 None knee pain Quality popping 10/03/2015 None knee pain Quality intermittent 10/03/2015 None knee pain Frequency of Episodes daily 10/03/2015 None knee pain Frequency of Episodes unchanged 10/03/2015 None knee pain Limitation on Activities allows weight bearing activity 10/03/2015 None knee pain Limitation on Activities moderately limits activities 10/03/2015 None knee pain Significant Medications NSAID' s 10/03/2015 pt is using Voltaren gel topically on occasion knee pain Alleviating Factors rest 10/03/2015 None knee pain Exacerbating Factors exertion 10/03/2015 None knee pain Pertinent Findings pain with movement 10/03/2015 None knee pain Quality worsening 10/03/2015 None knee pain Onset and Resolution gradual in onset 10/03/2015 None hypertension Onset and Resolution ongoing 10/03/2015 None hypertension Onset of Symptom during adulthood 10/03/2015 None hypertension Blood Pressure Values not checking blood pressure at home 10/03/2015 None hypertension Alleviating Factors medication 10/03/2015 None hypertension Pertinent Findings dizziness 10/03/2015 -if he bends over quickly hypertension Pertinent Findings Denies dyspnea 10/03/2015 None hypertension Pertinent Findings Denies edema 10/03/2015 None hyperlipidemia Onset and Resolution gradual in onset 10/03/2015 None hyperlipidemia Onset and Resolution ongoing 10/03/2015 None hyperlipidemia Onset of Symptom during adulthood 10/03/2015 None hyperlipidemia Alleviating Factors medication 10/03/2015 None hyperlipidemia Exacerbating Factors diet 10/03/2015 None knee pain Location on the right 05/25/2015 None knee pain Quality dull pain 05/25/2015 None knee pain Quality sharp pain 05/25/2015 None knee pain Quality intermittent 05/25/2015 None knee pain Timing of Episodes in the morning 05/25/2015 None knee pain Timing of Episodes in the afternoon 05/25/2015 None knee pain Timing of Episodes in the evening 05/25/2015 None knee pain Timing of Episodes at night 05/25/2015 the worst knee pain Onset of Symptom 5 days ago 05/25/2015 None knee pain Limitation on Activities allows weight bearing activity 05/25/2015 None knee pain Limitation on Activities allows moderate activity without pain 05/25/2015 None knee pain Pertinent Findings decreased range of motion 05/25/2015 unable to lift leg to get into the car without pain knee pain Pertinent Findings pain with movement 05/25/2015 None knee pain Pertinent Findings weakness 05/25/2015 None knee pain Location on the left 04/03/2015 None knee pain Location on the right 04/03/2015 None knee pain Quality dull pain 04/03/2015 None knee pain Quality popping 04/03/2015 None knee pain Quality intermittent 04/03/2015 None knee pain Frequency of Episodes daily 04/03/2015 None knee pain Limitation on Activities allows weight bearing activity 04/03/2015 None blood pressure followup Quality chronic 04/03/2015 None blood pressure followup Onset and Resolution ongoing 04/03/2015 None blood pressure followup Onset of Symptom during adulthood 04/03/2015 None blood pressure followup Blood Pressure Values not checking blood pressure at home 04/03/2015 None blood pressure followup Frequency of Episodes unchanged 04/03/2015 None blood pressure followup Triggers stress 04/03/2015 None blood pressure followup Alleviating Factors diet changes 04/03/2015 None blood pressure followup Alleviating Factors exercise 04/03/2015 None blood pressure followup Alleviating Factors medication 04/03/2015 None knee pain Quality stable 04/03/2015 None knee pain Timing of Episodes at night 04/03/2015 None knee pain Frequency of Episodes unchanged 04/03/2015 None knee pain Limitation on Activities moderately limits activities 04/03/2015 None knee pain Significant Medications NSAID' s 04/03/2015 pt is using Voltaren gel topically about 2 times daily. knee pain Alleviating Factors rest 04/03/2015 None knee pain Exacerbating Factors exertion 04/03/2015 None knee pain Pertinent Findings pain with movement 04/03/2015 None blood pressure followup Pertinent Findings Denies dizziness 04/03/2015 None blood pressure followup Pertinent Findings Denies dyspnea 04/03/2015 None knee pain Location on the left 11/23/2014 None knee pain Location on the right 11/23/2014 None knee pain Quality popping 11/23/2014 None knee pain Quality dull pain 11/23/2014 None knee pain Quality intermittent 11/23/2014 None knee pain Frequency of Episodes daily 11/23/2014 None knee pain Limitation on Activities allows weight bearing activity 11/23/2014 None knee pain Limitation on Activities does not limit activities 11/23/2014 None blood pressure followup Alleviating Factors diet changes 11/23/2014 None blood pressure followup Alleviating Factors exercise 11/23/2014 None blood pressure followup Alleviating Factors medication 11/23/2014 None blood pressure followup Blood Pressure Values not checking blood pressure at home 11/23/2014 None blood pressure followup Blood Pressure Values pt checking blood pressure - see scanned document 11/23 None blood pressure followup Frequency of Episodes unchanged 11/23/2014 None blood pressure followup Onset and Resolution ongoing 11/23/2014 None blood pressure followup Onset of Symptom during adulthood 11/23/2014 None blood pressure followup Quality chronic 11/23/2014 None blood pressure followup Triggers stress 11/23/2014 None sinus congestion Quality acute 09/20/2014 None sinus congestion Quality worsening 09/20/2014 None sinusitis Location in the bilateral frontal sinuses 09/20/2014 None sinusitis Location in the bilateral maxillary sinuses 09/20/2014 None sinusitis Onset and Resolution gradual in onset 09/20/2014 None sinusitis Onset and Resolution ongoing 09/20/2014 None sinusitis Pertinent Findings facial pain 09/20/2014 None sinusitis Pertinent Findings fatigue 09/20/2014 None sinusitis Pertinent Findings headache 09/20/2014 None sinusitis Pertinent Findings sinus pain 09/20/2014 None sinusitis Pertinent Findings sinus pressure 09/20/2014 None sinusitis Quality acute 09/20/2014 None sinusitis Quality pain 09/20/2014 None sinusitis Quality pressure 09/20/2014 None sinusitis Severity moderate 09/20/2014 None Advance Directives No Advance Directive data Encounters Encounter Performer Location Codes Date ( 97724 EST. 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 PATIENT, LEVEL IV Diagnosis: Type 2 diabetes mellitus without complications[ICD10: E11.9] Diagnosis: Essential (primary) hypertension[ICD10: I10] Diagnosis: Mixed hyperlipidemia[ICD10: E78.2] Andreina Hoffmann MD, [facility] CPT-4: 57711 02/18/2018 ([id number]) 61154 EST. PATIENT, LEVEL IV Diagnosis: Essential (primary) hypertension[ICD10: I10] Diagnosis: Type 2 diabetes mellitus without complications[ICD10: E11.9] Diagnosis: Mixed hyperlipidemia[ICD10: E78.2] Andreina Hoffmann MD, [facility] CPT-4: 12917 10/06/2017 ([id number]) 87769 EST. PATIENT, LEVEL III Diagnosis: Rash and other nonspecific skin eruption[ICD10: R21] Andreina Hoffmann MD, [facility] CPT-4: 34096 06/23/2017 ([id number]) 51925 EST. PATIENT, LEVEL IV Diagnosis: Essential (primary) hypertension[ICD10: I10] Diagnosis: Other abnormal glucose[ICD10: R73.09] Diagnosis: Rash and other nonspecific skin eruption[ICD10: R21] Diagnosis: Pain in right knee[ICD10: M25.561] Diagnosis: Impaired fasting glucose[ICD10: R73.01] Andreina Hoffmann MD, [facility] CPT-4: 13448 05/21/2017 ([id number]) 89935 EST. PATIENT, LEVEL IV Diagnosis: Essential (primary) hypertension[ICD10: I10] Diagnosis: Pain in right knee[ICD10: M25.561] Diagnosis: Rash and other nonspecific skin eruption[ICD10: R21] Diagnosis: Other abnormal glucose[ICD10: R73.09] Diagnosis: Mixed hyperlipidemia[ICD10: E78.2] Andreina Hoffmann MD, [facility] CPT-4: 97146 01/16/2017 ([id number]) 84927 EST. PATIENT, LEVEL IV Diagnosis: Essential (primary) hypertension[ICD10: I10] Diagnosis: Acute recurrent maxillary sinusitis[ICD10: J01.01] Andreina Hoffmann MD, [facility] CPT-4: 62188 08/27/2016 ([id number]) 41916 EST. PATIENT, LEVEL IV Diagnosis: Essential (primary) hypertension[ICD10: I10] Diagnosis: Pain in right knee[ICD10: M25.561] Diagnosis: Pain in left knee[ICD10: M25.562] Andreina Hoffmann MD, [facility] CPT-4: 27161 05/30/2016 ([id number]) 91391 EST. PATIENT, LEVEL III Diagnosis: Essential (primary) hypertension[ICD10: I10] Diagnosis: Pain in right knee[ICD10: M25.561] Gisel Hoffmann MD, [facility] CPT-4: 75396 04/19/2016 ([id number]) 76181 EST. PATIENT, LEVEL IV Diagnosis: Essential (primary) hypertension[ICD10: I10] Diagnosis: Mixed hyperlipidemia[ICD10: E78.2] Diagnosis: Pain in right knee[ICD10: M25.561] Andreina Hoffmann MD, [facility] CPT-4: 84260 01/03/2016 ([id number]) 16051 EST. PATIENT, LEVEL IV Diagnosis: Essential (primary) hypertension[ICD10: I10] Diagnosis: Mixed hyperlipidemia[ICD10: E78.2] Diagnosis: Hyperglycemia, unspecified[ICD10: R73.9] Andreina Hoffmann MD, [facility] CPT-4: 01707 10/03/2015 92906 EST. PATIENT, LEVEL IV Diagnosis: Pain in right knee[ICD10: M25.561] Tiffany Alber Hoffmann MD [facility] CPT-4: 09850 05/25/2015 ([id number]) 21732 EST. PATIENT, LEVEL III Diagnosis: Essential (primary) hypertension[ICD10: I10] Diagnosis: Changes in skin texture[ICD10: R23.4] Andreina Hoffmann MD [facility] CPT-4: 77752 04/03/2015 ([id number]) 23721 EST. PATIENT, LEVEL IV Diagnosis: ESSENTIAL HYPERTENSION[ICD9: 401.9] Diagnosis: DIABETES TYPE II[ICD9: 250.00] Diagnosis: HYPERLIPIDEMIA[ICD9: 272.4] Diagnosis: OSTEOARTH NOS-UNSPEC[ICD9: 715.90] Andreina Hoffmann MD [facility] CPT-4: 88016 11/23/2014 ([id number]) OFFICE VISIT, NEW - LEVEL 3 Diagnosis: ACUTE BRONCHITIS[ICD9: 466.0] Diagnosis: Dyspnea[ICD9: 786.09] Diagnosis: Sinusitis[ICD9: 473.9] Diagnosis: ACUTE MAXILLARY SINUSITIS[ICD9: 461.0] Andreina Hoffmann MD, [facility] CPT-4: 68549 09/20/2014 Plan of Care Planned Activity Notes Codes Status Date Visit Plan: Hypertension - well controlled - continue with current medications, continue with no added salt diet. Pt has been encouraged to exercise daily. The pt has been advised to call the office if there are any acute concerns about change in blood pressure readings at home. Excoriation on arms and legs - rx for mupirocin on arms and legs. - Advised pt to stop picking/ scratching at the lesions on his arms and legs. Diabetes Mellitus - controlled - per recent FSBS reports. I have recommended for the patient to have follow up labs prior to the next office visit. The patient has been instructed to continue with current medications as previously directed, continue with regular FSBS monitoring to assure continued control of diabetes. Pt to call for any acute concerns, complaints, or if the blood glucose readings are starting to become less controlled. Low back pain - recommended patient to use ibuprofen for inflammation of his back. 06/22/2018 [id number] [place] (15 min) Moderate 06/22/2018 Patient Education: Patient Medication Summary Completed 06/22/2018 Patient Education: Diabetes Completed 06/22/2018 Patient Education: Back Pain Completed 06/22/2018 Visit Plan: Hypertension - well controlled - continue with current medications, continue with no added salt diet. Pt has been encouraged to exercise daily. The pt has been advised to call the office if there are any acute concerns about change in blood pressure readings at home. Diabetes Mellitus - controlled - per recent FSBS reports. I have recommended for the patient to have follow up labs prior to the next office visit. The patient has been instructed to continue with current medications as previously directed, continue with regular FSBS monitoring to assure continued control of diabetes. Pt to call for any acute concerns, complaints, or if the blood glucose readings are starting to become less controlled. Hyperlipidemia - pt has been counseled about appropriate diet, exercise, and need for low fat food choices. I have discussed the need for the patient to take medications as prescribed. If the patient has negative side effects from the medication, they are to CALL the office and not abruptly discontinue the medication without discussion with a practitioner in the office. We will check labs in 3-6 months for follow up on the patient's chronic medical problem and to assure normal liver response to medications. 02/18/2018 Visit Plan: Hypertension - well controlled - continue with current medications, continue with no added salt diet. Pt has been encouraged to exercise daily. The pt has been advised to call the office if there are any acute concerns about change in blood pressure readings at home. Diabetes Mellitus - controlled - per recent FSBS reports. I have recommended for the patient to have follow up labs prior to the next office visit. The patient has been instructed to continue with current medications as previously directed, continue with regular FSBS monitoring to assure continued control of diabetes. Pt to call for any acute concerns, complaints, or if the blood glucose readings are starting to become less controlled. Hyperlipidemia - pt has been counseled about appropriate diet, exercise, and need for low fat food choices. I have discussed the need for the patient to take medications as prescribed. If the patient has negative side effects from the medication, they are to CALL the office and not abruptly discontinue the medication without discussion with a practitioner in the office. We will check labs in 3-6 months for follow up on the patient's chronic medical problem and to assure normal liver response to medications. 02/18/2018 [place]ment: [place] W[place]: [phone] [id number] (15 min) Moderate 02/18/2018 Patient Education: Patient Medication Summary Completed 02/18/2018 Patient Education: Diabetes Completed 02/18/2018 Appointment: Andreina Hoffmann WPtel: [phone] [phone] (15 min) Moderate 02/09/2018 Visit Plan: Hypertension - well controlled - continue with current medications, continue with no added salt diet. Pt has been encouraged to exercise daily. The pt has been advised to call the office if there are any acute concerns about change in blood pressure readings at home. Diabetes Mellitus - controlled - per recent FSBS reports. I have recommended for the patient to have follow up labs prior to the next office visit. The patient has been instructed to continue with current medications as previously directed, continue with regular FSBS monitoring to assure continued control of diabetes. Pt to call for any acute concerns, complaints, or if the blood glucose readings are starting to become less controlled. Hyperlipidemia - pt has been counseled about appropriate diet, exercise, and need for low fat food choices. I have discussed the need for the patient to take medications as prescribed. If the patient has negative side effects from the medication, they are to CALL the office and not abruptly discontinue the medication without discussion with a practitioner in the office. We will check labs in 3-6 months for follow up on the patient's chronic medical problem and to assure normal liver response to medications. 10/06/2017 Appointment: [phone] [facility] [place] (15 min) Moderate 10/06/2017 Patient Education: Patient Medication Summary Completed 10/06/2017 Visit Plan: Rash with excoriations - recommended patient to stop use of his loufa/fishnet body poof - use a wash rag or his hands to cleanse his body. Pt given refill of mupirocin cream to use on his wounds/ excoriated skin. He is to call if it is not improved. 06/23/2017 Appointment: [phone] [id number] (15 min) Moderate 06/23/2017 Patient Education: Patient Medication Summary Completed 06/23/2017 Appointment: [phone] [id number] (15 min) Moderate 06/10/2017 Visit Plan: rash on arms laterally, low back Hypertension - well controlled - continue with current medications, continue with no added salt diet. Pt has been encouraged to exercise daily. The pt has been advised to call the office if there are any acute concerns about change in blood pressure readings at home. Elevated glucose - check hgba1c today. Rash with excoriations - recommended patient to stop use of his loufa/fishnet body poof - use a wash rag or his hands to cleanse his body. Pt given refill of mupirocin cream to use on his wounds/excoriated skin. He is to call if it is not improved. Hyperlipidemia - pt has been counseled about appropriate diet, exercise, and need for low fat food choices. I have discussed the need for the patient to take medications as prescribed. If the patient has negative side effects from the medication, they are to CALL the office and not abruptly discontinue the medication without discussion with a practitioner in the office. We will check labs in 3-6 months for follow up on the patient's chronic medical problem and to assure normal liver response to medications. continue with lipitor. Chronic pain - from recurrent knee surgery - pt uses oxycodone intermittently - refill provided today. 05/21/2017 Appointment: [phone] [id number] (15 min) Moderate 05/21/2017 Patient Education: Patient Medication Summary Completed 05/21/2017 Visit Plan: Hypertension - well controlled - continue with current medications, continue with no added salt diet. Pt has been encouraged to exercise daily. The pt has been advised to call the office if there are any acute concerns about change in blood pressure readings at home. Elevated glucose - check hgba1c at next lab draw. Rash with excoriations - recommended patient to stop use of his loufa/fishnet body poof - use a wash rag or his hands to cleanse his body. Pt given refill of mupirocin cream to use on his wounds/excoriated skin. He is to call if it is not improved. Hyperlipidemia - pt has been counseled about appropriate diet, exercise, and need for low fat food choices. I have discussed the need for the patient to take medications as prescribed. If the patient has negative side effects from the medication, they are to CALL the office and not abruptly discontinue the medication without discussion with a practitioner in the office. We will check labs in 3-6 months for follow up on the patient's chronic medical problem and to assure normal liver response to medications. continue with lipitor. Chronic pain - from recurrent knee surgery - pt uses oxycodone intermittently - refill provided today. 01/16/2017 Appointment: [phone] [id number] (15 min) Moderate 01/16/2017 Patient Education: Patient Medication Summary Completed 01/16/2017 Appointment: [phone] [id number] (15 min) Moderate 12/30/2016 Visit Plan: Hypertension - well controlled - continue with current medications, continue with no added salt diet. Pt has been encouraged to exercise daily. The pt has been advised to call the office if there are any acute concerns about change in blood pressure readings at home. Sinusitis - Pt has acute infection - pain in face, maxillary region, Pt informed to use decongestant, RX given to patient, sinus rinses also recommended. Call if symptoms do not show improvement. Bronchitis - acute case of bronchitis identified. Pt has been given antibiotics, breathing treatments as appropriate, and pt has been instructed to call if symptoms are not improved, or if symptoms acutely worsen. rocephin shot - 08/27/2016 Visit Plan: Hypertension - well controlled - continue with current medications, continue with no added salt diet. Pt has been encouraged to exercise daily. The pt has been advised to call the office if there are any acute concerns about change in blood pressure readings at home. Sinusitis - Pt has acute infection - pain in face, maxillary region, Pt informed to use decongestant, RX given to patient, sinus rinses also recommended. Call if symptoms do not show improvement. Bronchitis - acute case of bronchitis identified. Pt has been given antibiotics, breathing treatments as appropriate, and pt has been instructed to call if symptoms are not improved, or if symptoms acutely worsen. jorge shot - 08/27/2016 Appointment: Andreina Hoffmann WPtel: [phone] [phone] (15 min) Moderate 08/27/2016 Patient Education: Patient Medication Summary Completed 08/27/2016 Visit Plan: Hypertension - well controlled - continue with current medications, continue with no added salt diet. Pt has been encouraged to exercise daily. The pt has been advised to call the office if there are any acute concerns about change in blood pressure readings at home. Hyperlipidemia - pt has been counseled about appropriate diet, exercise, and need for low fat food choices. I have discussed the need for the patient to take medications as prescribed. If the patient has negative side effects from the medication, they are to CALL the office and not abruptly discontinue the medication without discussion with a practitioner in the office. We will check labs in 3-6 months for follow up on the patient's chronic medical problem and to assure normal liver response to medications. Hypertension - well controlled - continue with current medications, continue with no added salt diet. Pt has been encouraged to exercise daily. The pt has been advised to call the office if there are any acute concerns about change in blood pressure readings at home. Knee pain - uncontrolled - RX for oxycodone 05/30/2016 Appointment: Andreina Hoffmann WPtel: [phone] [phone] (15 min) Moderate 05/30/2016 Patient Education: Patient Medication Summary Completed 05/30/2016 Patient Education: Obesity Completed 05/30/2016 Appointment: Gisel Titus WPtel: [phone] [phone] (30 min) Complex 05/24/2016 Visit Plan: Hypertension - too well controlled - continue with current medications, continue with no added salt diet. Pt has been encouraged to exercise daily. The pt has been advised to call the office if there are any acute concerns about change in blood pressure readings at home. Right knee pain--revision of knee replacement by Dr Galdamez-on IV abx-sees infection control at [place] 04/19/2016 Appointment: Gisel Titus WPtel: [phone] [phone] (30 min) Complex 04/19/2016 Patient Education: Patient Medication Summary Completed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
--- OUTSIDE RECORDS SUMMARY | 2018-08-26 06:18 | XMS REPORT | CCD ---
Author Author [facility] Hoffmann Organization [facility] Address [address] [place] [address] Phone Care Team Providers Care Shelving Supervisor Name Role Phone PP Unavailable CCM Unavailable Summary Purpose Interface Exchange Insurance Providers Payer name Policy type / Coverage type Covered constitution party ID Effective Begin Date Effective End Date Blue Cross Blue Shield [facility] Blue Cross/Blue Shield [id number] Unknown WPS Medicare Part B Blue Cross/Blue Shield [id number] Unknown Family history Father Diagnosis Age At Onset Hyperlipidemia Unknown Heart Attack Unknown Hypertension Unknown Runs in the family Diagnosis Age At Onset Hypertension Unknown Mother Diagnosis Age At Onset Diabetes mellitus Type 2 Unknown Cancer Unknown Social History Social History Element Codes Description Effective Dates Marital status Unknown Leah 08/27/2016 Number of children Unknown 1 4 adopted 11/23/[address]: 4765634 Former smoker 1970- quit 11/23/2014 Alcohol history Unknown occasionally drinks alcohol 11/23/2014 Living arrangements Unknown House 09/20/2014 Employment Unknown 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 [employer]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 09/20/2014 Allergies, Adverse Reactions, Alerts Substance [...] Start Date Stop Date Status Fill Instructions Toprol XL 25 mg tablet,extended release RxNorm: 488313 Tablet(s) TAKE 1 TABLET BY MOUTH EVERY DAY 08/17/2018 08/11/2019 Active mupirocin 2 % topical cream RxNorm: 948702 1 Application TOP BID 07/30/2018 08/28/2018 Active mupirocin 2 % topical cream RxNorm: 238979 1 Application TOP BID 07/14/2018 07/29/2018 Inactive Lipitor 20 mg tablet RxNorm: 367502 TAKE ONE TABLET BY MOUTH DAILY AT BEDTIME 05/18/2018 05/12/2019 Active Generic For:LIPITOR 20MG 05/18/2018 8:43:47 AM triamterene 37.5 mg-hydrochlorothiazide 25 mg capsule RxNorm: 155420 TAKE 1 CAPSULE BY MOUTH DAILY 05/18/20182019 Active Generic For:DYAZIDE 37.5-25 05/18/2018 8:43:43 AM Toprol XL 25 mg tablet,extended release RxNorm: 369157 TAKE 1 TABLET BY MOUTH EVERY DAY 05/18/2018 08/16/2018 Inactive Generic For:TOPROL XL 25MG 05/18/2018 9: 31:21 AM betamethasone valerate 0.1 % topical ointment RxNorm: 048167 APPLY TOPICALLY TO SKIN LESIONS/RASH ON LEGS, ARMS AND BACK THREE TIMES DAILY 05/23/2018 Inactive 03/25/2018 10:44:47 AM terazosin 2 mg capsule RxNorm: 400140 TAKE 1 CAPSULE BY MOUTH DAILY 02/16/2018 08/14/2018 Inactive 02/16/2018 9:02:27 AM Toprol XL 25 mg tablet,extended release RxNorm: 260106 TAKE 1 TABLET BY MOUTH EVERY DAY 02/16/2018 05/17/2018 Inactive Generic For:TOPROL XL 25MG 02/16/2018 9: 19:34 AM terazosin 2 mg capsule RxNorm: 096050 TAKE 1 CAPSULE BY MOUTH DAILY 02/16/2018 02/15/2018 Inactive betamethasone valerate 0.1 % topical ointment RxNorm: 642116 APPLY TOPICALLY TO SKIN LESIONS/RASH ON LEGS, ARMS AND BACK THREE TIMES DAILY 02/09/2018 Inactive 12/12/2017 11:42:38 AM Toprol XL 25 mg tablet,extended release RxNorm: 771450 TAKE 1 TABLET BY MOUTH EVERY DAY 11/18/2017 02/15/2018 Inactive Generic For:TOPROL XL 25MG 11/18/2017 9: 12:07 AM oxycodone 5 mg tablet RxNorm: 9091520 1 Tablet(s) PO BID 201711/04/2017 Inactive betamethasone valerate 0.1 % topical ointment RxNorm: 954169 APPLY TOPICALLY TO SKIN LESIONS/RASH ON LEGS, ARMS AND BACK THREE TIMES DAILY 10/31/2017 Inactive 09/01/2017 4:21:36 PM terazosin 2 mg capsule RxNorm: 535040 TAKE 1 CAPSULE BY MOUTH DAILY 08/20/2017 02/15/2018 Inactive 08/20/2017 8:54:09 AM Toprol XL 25 mg tablet,extended release RxNorm: 475291 TAKE 1 TABLET BY MOUTH EVERY DAY 08/20/2017 11/17/2017 Inactive Generic For:TOPROL XL 25MG 08/20/2017 8: 58:18 AM betamethasone valerate 0.1 % topical ointment RxNorm: 606716 1 Application TOP TID apply to skin lesions/rash on legs, arms, back 201708/25/2017 Inactive Lipitor 20 mg tablet RxNorm: 096796 TAKE ONE TABLET BY MOUTH DAILY AT BEDTIME 05/22/2017 05/16/2018 Inactive Generic For:LIPITOR 20MG 05/22/2017 9:16:26 AM triamterene 37.5 mg-hydrochlorothiazide 25 mg capsule RxNorm: 512168 TAKE 1 CAPSULE BY MOUTH DAILY 05/22/20172018 Inactive Generic For:DYAZIDE 37.5-25 05/22/2017 9:16:22 AM betamethasone valerate 0.1 % topical ointment RxNorm: 230505 1 Application TOP TID apply to skin lesions/rash on legs, arms, back 201706/19/2017 Inactive terazosin 2 mg capsule RxNorm: 573380 TAKE 1 CAPSULE BY MOUTH DAILY 02/19/2017 08/17/2017 Inactive 02/19/2017 11:33:02 AM clobetasol 0.05 % topical cream RxNorm: 198816 1 Application TOP daily as needed 01/17/2017 No Stop Date Active mupirocin 2 % topical cream RxNorm: 425954 1 Application TOP BID 01/16/2017 02/14/2017 Inactive terazosin 2 mg capsule RxNorm: 858618 1 Capsule(s) PO daily 02/18/2017 Inactive oxycodone 5 mg tablet RxNorm: 7184522 1 Tablet(s) PO BID 201610/10/2016 Inactive ceftriaxone 500 mg solution for injection RxNorm: 7424440 1 Milliliter(s) Inj 08/27/2016 08/27/2016 Inactive azithromycin 250 mg tablet RxNorm: 590974 1 Tablet(s) PO UD take two pills on day #1, then one pill daily x 4 days 08/27/2016 01/15/2017 Inactive Toprol XL 25 mg tablet,extended release RxNorm: 393740 1 Tablet(s) PO daily 08/26/2016 12/23/2016 Inactive oxycodone 5 mg tablet RxNorm: 4668903 1 Tablet(s) PO BID 201607/27/2016 Inactive Lipitor 20 mg tablet RxNorm: 584404 1 Tablet(s) QHS TAKE 1 TABLET BY MOUTH ONCE DAILY AT BEDTIME. 05/27/2016 05/21/2017 Inactive Generic For:LIPITOR 20MG 2014 11:51:16 AM N O T I C E PRESCRIPTION PREVIOUSLY AUTHORIZED BY DOCTOR: NICHOLE ESPANA triamterene 37.5 mg-hydrochlorothiazide 25 mg capsule RxNorm: 687766 1 Capsule(s) PO daily 05/27/2016 05/21/2017 Inactive terazosin 2 mg capsule RxNorm: 750881 1 Capsule(s) PO daily 08/19/2016 Inactive terazosin 2 mg capsule RxNorm: 715777 1 Capsule(s) PO daily 04/21/2016 Inactive terazosin 5 mg capsule RxNorm: 190175 1/2 Tablet(s) PO QPM 04/21/2016 Inactive Toprol XL 25 mg tablet,extended release RxNorm: 501937 1 Tablet(s) PO daily 04/16/2016 04/15/2016 Inactive Toprol XL 25 mg tablet,extended release RxNorm: 552384 1 Tablet(s) PO daily 04/16/2016 08/13/2016 Inactive pantoprazole 40 mg tablet,delayed release RxNorm: 256167 1 Tablet(s) PO daily 04/16/2016 04/15/2016 Inactive pantoprazole 40 mg tablet,delayed release RxNorm: 182341 1 Tablet(s) PO daily 04/16/2016 01/15/2017 Inactive Toprol XL 50 mg tablet,extended release RxNorm: 878268 1 Tablet(s) PO daily 02/28/2016 04/15/2016 Inactive terazosin 5 mg capsule RxNorm: 161978 1 Tablet(s) PO QPM 201504/18/2016 Inactive oxycodone 5 mg tablet RxNorm: 1052627 1 Tablet(s) PO UD 1/2 at 3pm, 1 pill at 9pm and may take up to 2 pills bid if needed. 01/03/2016 06/27/2016 Inactive Toprol XL 50 mg tablet,extended release RxNorm: 983059 1 Tablet(s) PO daily 11/15/2015 02/27/2016 Inactive terazosin 5 mg capsule RxNorm: 766687 1 Tablet(s) PO QPM 201501/01/2016 Inactive Lipitor 20 mg tablet RxNorm: 251134 1 Tablet(s) QHS TAKE 1 TABLET BY MOUTH ONCE DAILY AT BEDTIME. 06/01/2015 05/25/2016 Inactive Generic For:LIPITOR 20MG 2014 11:51:16 AM N O T I C E PRESCRIPTION PREVIOUSLY AUTHORIZED BY DOCTOR: NICHOLE ESPANA Kenalog 40 mg/mL suspension for injection RxNorm: 3539425 1 Milliliter(s) Inj 05/25/2015 05/25/2015 Inactive terazosin 5 mg capsule RxNorm: 819868 1 Tablet(s) PO QPM 201407/05/2015 Inactive Toprol XL 50 mg tablet,extended release RxNorm: 181822 1 Tablet(s) PO daily 05/04/2015 10/30/2015 Inactive terazosin 5 mg capsule RxNorm: 959873 1 Tablet(s) PO QPM 201405/03/2015 Inactive triamterene 37.5 mg-hydrochlorothiazide 25 mg capsule RxNorm: 479003 1 Capsule(s) PO daily 04/26/2015 05/26/2016 Inactive Voltaren 1 % topical gel RxNorm: 080891 4 Gram(s) TOP QID to knees 04/19/2015 06/21/2018 Inactive Lipitor 20 mg tablet RxNorm: 384505 Tablet(s) TAKE 1 TABLET BY MOUTH ONCE DAILY AT BEDTIME. 04/13/2015 05/31/2015 Inactive Generic For:LIPITOR 20MG 03/24/2015 11: 51:16 AM N O T I C E PRESCRIPTION PREVIOUSLY AUTHORIZED BY DOCTOR:NICHOLE ESPANA Lipitor 20 mg tablet RxNorm: 504309 TAKE 1 TABLET BY MOUTH ONCE DAILY AT BEDTIME. 03/24/2015 04/12/2015 Inactive Generic For:LIPITOR 20MG 03/24/2015 11:51:16 AM N O T I C E PRESCRIPTION PREVIOUSLY AUTHORIZED BY DOCTOR:NICHOLE ESPANA [phone] Lipitor 20 mg tablet RxNorm: 586865 TAKE 1 TABLET BY MOUTH ONCE DAILY AT BEDTIME. 03/24/2015 03/23/2015 Inactive Generic For:LIPITOR 20MG 03/24/2015 11:51:16 AM N O T I C E PRESCRIPTION PREVIOUSLY AUTHORIZED BY DOCTOR:NICHOLE ESPANA [phone] Lipitor 20 mg tablet RxNorm: 622889 1 Tablet(s) PO daily 201403/23/2015 Inactive Toprol XL 50 mg tablet,extended release RxNorm: 476681 1 Tablet(s) PO daily 03/08/2015 05/03/2015 Inactive Toprol XL 50 mg tablet,extended release RxNorm: 884923 1 Tablet(s) PO daily 03/08/2015 03/07/2015 Inactive Toprol XL 50 mg tablet,extended release RxNorm: 478690 1 Tablet(s) PO daily 03/07/2015 03/07/2015 Inactive triamterene 37.5 mg-hydrochlorothiazide 25 mg capsule RxNorm: 599702 1 Capsule(s) PO daily 01/26/2015 04/25/2015 Inactive Hytrin 5 mg tablet RxNorm: 871340 1 Tablet(s) PO QPM 201403/25/2015 Inactive triamterene 37.5 mg-hydrochlorothiazide 25 mg capsule RxNorm: 393995 1 Capsule(s) PO daily 01/25/2015 01/25/2015 Inactive Voltaren 1 % topical gel RxNorm: 317515 4 Gram(s) TOP QID to knees 11/23/2014 02/20/2015 Inactive aspirin 81 mg chewable tablet RxNorm: 002830 1 Tablet(s) PO daily 09/20/2014 12/02/2017 Inactive azithromycin 250 mg tablet RxNorm: 463546 2 Tablet(s) PO on day #1, then 1 pill on days #2-5 09/20/2014 04/02/2015 Inactive [SAVINGS FOR NON-COVERED DRUGS -- BIN: [id number], PCN: ASPROD1, Group: XXXXX, ID# [id number], Questions: . THIS IS NOT INSURANCE.] triamterene 37.5 mg-hydrochlorothiazide 25 mg capsule RxNorm: 934472 1 Capsule(s) PO daily 09/20/2014 01/24/2015 Inactive Keflex 500 mg capsule RxNorm: 571244 1 Capsule(s) PO TID 201409/26/2014 Inactive PLEASE CALL PT TO LET HIM KNOW THAT THE ANTIBIOTICS ARE READY FOR TRADER FIXED INCOME - START ON 09/21/14 Hytrin 5 mg tablet RxNorm: 477405 1 Tablet(s) PO QPM 201401/24/2015 Inactive Vitamin C 500 mg chewable tablet RxNorm: 138074 1 Tablet(s) PO daily 09/20/2014 08/27/2016 Inactive Toprol XL 50 mg tablet,extended release RxNorm: 116830 1 Tablet(s) PO daily 09/20/2014 03/06/2015 Inactive prednisone 20 mg tablet RxNorm: 302715 3 Tablet(s) PO daily 09/24/2014 Inactive [SAVINGS FOR NON-COVERED DRUGS -- BIN:[id number], PCN: ASPROD1, Group: XXXXX, ID# [id number], Questions: . THIS IS NOT INSURANCE.] Vitamin D3 1,000 unit capsule RxNorm: 802215 1 Capsule(s) PO daily 09/20/2014 08/27/2016 Inactive fish oil-dha-epa 1,200 mg-144 mg-216 mg capsule RxNorm: 1 Capsule(s) PO daily 09/20/2014 08/27/2016 Inactive Lipitor 20 mg tablet RxNorm: 242078 1 Tablet(s) PO daily 201403/23/2015 Inactive naproxen sodium 220 mg tablet RxNorm: 454172 1 Tablet(s) PO BID as needed for pain 09/20/2014 01/02/2016 Inactive penicillin V potassium 500 mg tablet RxNorm: 201034 1 Tablet(s) PO daily - Prescribed by Dr. Adam No Start Date Active Fish Oil 360 mg-1,200 mg capsule RxNorm: 150357 1 Capsule(s) PO daily No Start Date Active Vitamin D3 2,000 unit tablet RxNorm: 607029 1 Tablet(s) PO daily No Start Date Active Stool Softener 100 mg capsule RxNorm: 8447424 1 Capsule(s) PO BID No Start Date Active Probiotic oral RxNorm : 6205 oral No Start Date Active tamsulosin 0.4 mg capsule RxNorm: 414885 1 Capsule(s) PO daily No Start Date Active Vitamin C 1,000 mg tablet RxNorm: 424893 1 Tablet(s) PO daily No Start Date Active rifampin 150 mg capsule RxNorm: 712779 1 Capsule(s) PO daily No Start Date 08/26/2016 Inactive naproxen 250 mg tablet RxNorm: 381443 Tablet(s) PO BID as needed No Start Date 06/21/2018 Inactive calcium carbonate 550 mg chewable tablet RxNorm: 483344 1 Tablet(s) PO QID as needed No Start Date 08/26/2016 Inactive clobetasol 0.05 % topical cream RxNorm: 687008 1 Application TOP daily as needed No Start Date 01/16/2017 Inactive Medication Administered Medication Codes Instructions Start Date Status ceftriaxone 500 mg solution for injection RxNorm: 4479016 1Milliliter 08/27/2016 No longer Active Kenalog 40 mg/mL suspension for injection RxNorm: 6507086 1Milliliter 05/25/2015 No longer Active Immunizations Vaccine [...] 31.1 pg 10/03/2017 Cbc With Differential Ord2 [place]% 10.4 % 10/03/2017 Cbc With Differential Ord2 [...] 1.44 K/ul 10/03/2017 Cbc With Differential Ord2 [place] ABS# 0.7 K/ul 10/03/2017 Cbc With Differential Ord2 Eos ABS# 0.3 K/ul 10/03/2017 Cbc With Differential Ord2 Baso ABS# 0.1 K/ul 10/03/2017 %Hba1C Krc139 % HbA1c 25859-4 6.6 % 10/03/2017 %Hba1C Qxg472 Gluc Ave 143 mg/dL 10/03/2017 Uric Acid [...] Metabolic Ord15 CALCIUM 9.4 mg/dL 09/23/2017 %Hba1C Rjf459 % HbA1c 22100-0 6.6 % 05/21/2017 %Hba1C Wni111 Gluc Ave 143 mg/dL 05/21/2017 Comp Metabolic Bpl913 NA 138 mEq/L 05/21/2017 Comp Metabolic Wtz418 K 3.8 mEq/L 05/21/2017 Comp Metabolic Wys751 CL 99 mEq/L 05/21/2017 Comp Metabolic Tkc379 CO2 31.0 mEq/L 05/21/2017 Comp Metabolic Fhn953 ANION GAP 12 05/21/2017 Comp Metabolic Rjz602 GLUCOSE 93 mg/dL 05/21/2017 Comp Metabolic Zdv590 Creat 0.8 mg/dL 05/21/2017 Comp Metabolic Wsl854 eGFR 102 ml/min/1.73m2 05/21/2017 Comp Metabolic Rnk627 BUN 13 mg/dL 05/21/2017 Comp Metabolic Gyz871 B/C Ratio 16.7 Ratio 05/21/2017 Comp Metabolic Ehe124 CALCIUM 9.9 mg/dL 05/21/2017 Comp Metabolic Xkl832 ALK PHOS 99 U/L 05/21/2017 Comp Metabolic Adz019 AST(SGOT) 18 U/L 05/21/2017 Comp Metabolic Wuh929 ALT(SGPT) 29 U/L 05/21/2017 Comp Metabolic Xoz518 BILI T 0.7 mg/dL 05/21/2017 Comp Metabolic Gxh383 ALBUMIN 4.1 g/dL 05/21/2017 Comp Metabolic Kam919 TPRO 6.6 g/dL 05/21/2017 Comp Metabolic Ayt035 GLOB 2.6 g/dL 05/21/2017 Comp Metabolic Ban681 A/G Ratio 1.6 Ratio 05/21/2017 Comp Metabolic Blj894 Osmo 275 mOsmo 05/21/2017 Tsh Ord6 hTSH II 1.34 uIU/mL 05/21/2017 %Hba1C Hwr973 % HbA1c 82395-0 6.4 % 10/04/2015 %Hba1C Mdp144 Gluc Ave 137 mg/dL 10/04/2015 Comp Metabolic Cjz669 NA 139 mEq/L 10/04/2015 Comp Metabolic Jma203 K 3.8 mEq/L 10/04/2015 Comp Metabolic Xwl163 CL 104 mEq/L 10/04/2015 Comp Metabolic Eda930 CO2 32.0 mEq/L 10/04/2015 Comp Metabolic Rnq948 ANION GAP 7 10/04/2015 Comp Metabolic Pmt725 GLUCOSE 112 mg/dL 10/04/2015 Comp Metabolic Qer873 Creat 0.8 mg/dL 10/04/2015 Comp Metabolic Qgl113 eGFR 102 ml/min/1.73m2 10/04/2015 Comp Metabolic Jbb010 BUN 16 mg/dL 10/04/2015 Comp Metabolic Kln155 B/C Ratio 20.5 Ratio 10/04/2015 Comp Metabolic Crq736 CALCIUM 9.3 mg/dL 10/04/2015 Comp Metabolic Omt213 ALK PHOS 87 U/L 10/04/2015 Comp Metabolic Lnz422 AST(SGOT) 17 U/L 10/04/2015 Comp Metabolic Arm578 ALT(SGPT) 24 U/L 10/04/2015 Comp Metabolic Rcc844 BILI T 0.6 mg/dL 10/04/2015 Comp Metabolic Eig070 ALBUMIN 4.0 g/dL 10/04/2015 Comp Metabolic Ytx379 TPRO 6.3 g/dL 10/04/2015 Comp Metabolic Nar243 GLOB 2.3 g/dL 10/04/2015 Comp Metabolic Not651 A/G Ratio 1.7 Ratio 10/04/2015 Comp Metabolic Itq094 Osmo 279 mOsmo 10/04/2015 Lipid Ord30 CHOL [...] 31.3 pg 10/04/2015 Cbc With Differential Ord2 [place]% 9.1 % 10/04/2015 Cbc With Differential Ord2 [...] 1.46 K/ul 10/04/2015 Cbc With Differential Ord2 [place] ABS# 0.6 K/ul 10/04/2015 Cbc With Differential Ord2 Eos ABS# 0.4 K/ul 10/04/2015 Cbc With Differential Ord2 Baso ABS# 0.1 K/ul 10/04/2015 %Hba1C Xzh007 % HbA1c 39543-2 6.5 % 11/24/2014 %Hba1C Ejq133 Gluc Ave 140 mg/dL 11/24/2014 Lipid Ord30 CHOL 121 mg/dL 11/23/2014 Lipid Ord30 HDL 37.0 mg/dl 11/23/2014 Lipid Ord30 TRIG 93 mg/dL 11/23/2014 Lipid Ord30 LDL 65 mg/dL 11/23/2014 Lipid Ord30 C/HDL 3.3 Ratio 11/23/2014 Comp Metabolic Con128 NA 135 mEq/L 11/23/2014 Comp Metabolic Ypx349 K 3.7 mEq/L 11/23/2014 Comp Metabolic Htt667 CL 101 mEq/L 11/23/2014 Comp Metabolic Vjs709 CO2 28.0 mEq/L 11/23/2014 Comp Metabolic Pec159 ANION GAP 10 11/23/2014 Comp Metabolic Bve986 GLUCOSE 104 mg/dL 11/23/2014 Comp Metabolic Ivu033 Creat 0.8 mg/dL 11/23/2014 Comp Metabolic Qok771 eGFR 104 ml/min/1.73m2 11/23/2014 Comp Metabolic Uhb352 BUN 10 mg/dL 11/23/2014 Comp Metabolic Zgj448 B/C Ratio 13.0 Ratio 11/23/2014 Comp Metabolic Jeq361 CALCIUM 9.7 mg/dL 11/23/2014 Comp Metabolic Rji721 ALK PHOS 92 U/L 11/23/2014 Comp Metabolic Cyw831 AST(SGOT) 17 U/L 11/23/2014 Comp Metabolic Nno995 ALT(SGPT) 26 U/L 11/23/2014 Comp Metabolic Aoq037 BILI T 1.1 mg/dL 11/23/2014 Comp Metabolic Qao279 ALBUMIN 4.1 g/dL 11/23/2014 Comp Metabolic Rnk846 TPRO 6.3 g/dL 11/23/2014 Comp Metabolic Xok626 GLOB 2.2 g/dL 11/23/2014 Comp Metabolic Wem920 A/G Ratio 1.9 Ratio 11/23/2014 Comp Metabolic Cka533 Osmo 269 mOsmo 11/23/2014 Cbc With Differential [...] hygiene 06/23/2017 None Full Exam - General 1995 Eyes conjunctiva /eyelids Overall: conjunctiva clear 06/23/2017 None Full Exam - General 1994 Eyes conjunctiva /eyelids Overall: cornea clear 06/23/2017 None Full Exam - General 1994 Eyes conjunctiva /eyelids Overall: eyelids normal 06/23/2017 None Full Exam - General 1994 Eyes pupils and irises Overall: pupils equal, round, reactive to light and accomodation 06/23/2017 None Full Exam - General 1995 Ears/Nose/Throat otoscopic exam Overall: external auditory canals clear 06/23/2017 None Full Exam - General 1995 Ears/Nose/Throat otoscopic exam Overall: tympanic membranes clear 06/23/2017 None Full Exam - General 1995 Ears/Nose/Throat lips/teeth/gingiva Overall: benign lips 06/23/2017 None Full Exam - General 1995 Ears/Nose/Throat lips/teeth/gingiva Overall: normal dentition 06/23/2017 None Full Exam - General 1994 Ears/Nose/Throat oral cavity/pharynx/larynx Overall: oral mucosa clear 06/23/2017 None Full Exam - General 1995 Ears/Nose/Throat oral cavity/pharynx/larynx Overall: oropharyngeal mucosa clear 06/23/2017 None Full Exam - General 1995 Ears/Nose/Throat oral cavity/pharynx/larynx Overall: hypopharynx benign 06/23/2017 [...] MG CPT-4: J0696 08/27/2016 DRAIN/INJECT JOINT/BURSA CPT-4: 14281 05/25/2015 TRIAMCINOLONE ACET INJ NOS CPT-4: J3301 05/25/2015 TRIAMCINOLONE ACET INJ NOS CPT-4: J3301 09/20/2014 ROCEPHIN, PER 250 MG CPT-4: J0696 09/20/2014 THER/PROPH/DIAG INJ SC/IM CPT-4: 40504 09/20/2014 Vital Signs Date Vital 06/22/2018 Blood Pressure 1: 142/68 Code : 8480-6 BMI: 30.9 Code : 69554-5 Heart Rate 1 : 57 bpm Height: 5'9" SpO2: 95% Weight: 209 lbs 02/18/2018 Blood Pressure 1: 128/72 Code : 8480-6 BMI: 31.5 Code : 30891-8 Heart Rate 1 : 68 bpm Height: 5'9" SpO2: 97% Weight: 213 lbs 10/06/2017 Blood Pressure 1: 134/70 Code : 8480-6 BMI: 31.5 Code : 97777-5 Heart Rate 1 : 65 bpm Height: 5'9" SpO2: 97% Weight: 213 lbs 06/23/2017 Blood Pressure 1: 136/72 Code : 8480-6 BMI: 31.5 Code : 27618-8 Heart Rate 1 : 64 bpm Height: 5'9" SpO2: 93% Weight: 213 lbs 05/21/2017 Blood Pressure 1: 118/80 Code : 8480-6 BMI: 32.2 Code : 40330-8 Heart Rate 1 : 76 bpm Height: 5'9" SpO2: 98% Weight: 218 lbs 01/16/2017 Blood Pressure 1: 132/78 Code : 8480-6 BMI: 31.0 Code : 11771-3 Heart Rate 1 : 63 bpm Height: 5'9" SpO2: 98% Weight: 210 lbs 08/27/2016 Blood Pressure 1: 128/72 Code : 8480-6 BMI: 30.4 Code : 08681-2 Heart Rate 1 : 69 bpm Height: 5'9" SpO2: 95% Temperature: 37.1 (C) / 98.7 (F) Weight: 206 lbs 05/30/2016 Blood Pressure 1: 136/64 Code : 8480-6 BMI: 30.7 Code : 66104-0 Heart Rate 1 : 77 bpm Height: 5'9" SpO2: 94% Weight: 208 lbs 04/19/2016 Blood Pressure 1: 108/68 Code : 8480-6 BMI: 28.8 Code : 13939-3 Height: 5'9" SpO2: 97% Weight: 195 lbs 01/03/2016 Blood Pressure 1: 120/70 Code : 8480-6 BMI: 31.0 Code : 77096-4 Heart Rate 1 : 81 bpm Height: 5'9" SpO2: 98% Weight: 210 lbs 10/03/2015 Blood Pressure 1: 128/68 Code : 8480-6 BMI: 31.7 Code : 55378-5 Heart Rate 1 : 60 bpm Height: 5'9" SpO2: 97% Weight: 215 lbs 05/25/2015 Blood Pressure 1: 138/84 Code : 8480-6 BMI: 32.6 Code : 26173-9 Heart Rate 1 : 60 bpm Height: 5'9" SpO2: 96% Weight: 221 lbs 04/03/2015 Blood Pressure 1: 142/74 Code : 8480-6 Blood Pressure 1: 136/70 Code: 8480-6 BMI: 32.5 Code: 97899-1 Heart Rate 1: 59 bpm Height: 5'9" SpO2: 94% Weight: 220 lbs 11/23/2014 Blood Pressure 1: 138/72 Code : 8480-6 BMI: 32.0 Code : 37476-2 Heart Rate 1 : 61 bpm Height: [...] data Encounters Encounter Performer Location Codes Date ([id number]) [id number] EST. 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 PATIENT, LEVEL IV Diagnosis: Type 2 diabetes mellitus without complications[ICD10: E11.9] Diagnosis: Essential (primary) hypertension[ICD10: I10] Diagnosis: Mixed hyperlipidemia[ICD10: E78.2] Andreina Hoffmann MD, [facility] CPT-4: 26084 02/18/2018 ([id number]) 49438 EST. PATIENT, LEVEL IV Diagnosis: Essential (primary) hypertension[ICD10: I10] Diagnosis: Type 2 diabetes mellitus without complications[ICD10: E11.9] Diagnosis: Mixed hyperlipidemia[ICD10: E78.2] Andreina Hoffmann MD, [facility] CPT-4: 52493 10/06/2017 ([id number]) 35442 EST. PATIENT, LEVEL III Diagnosis: Rash and other nonspecific skin eruption[ICD10: R21] Andreina Hoffmann MD, [facility] CPT-4: 62755 06/23/2017 ([id number]) 46244 EST. PATIENT, LEVEL IV Diagnosis: Essential (primary) hypertension[ICD10: I10] Diagnosis: Other abnormal glucose[ICD10: R73.09] Diagnosis: Rash and other nonspecific skin eruption[ICD10: R21] Diagnosis: Pain in right knee[ICD10: M25.561] Diagnosis: Impaired fasting glucose[ICD10: R73.01] Andreina Hoffmann MD, [facility] CPT-4: 80059 05/21/2017 ([id number]) 60825 EST. PATIENT, LEVEL IV Diagnosis: Essential (primary) hypertension[ICD10: I10] Diagnosis: Pain in right knee[ICD10: M25.561] Diagnosis: Rash and other nonspecific skin eruption[ICD10: R21] Diagnosis: Other abnormal glucose[ICD10: R73.09] Diagnosis: Mixed hyperlipidemia[ICD10: E78.2] Andreina Hoffmann MD, [facility] CPT-4: 11645 01/16/2017 ([id number]) 55364 EST. PATIENT, LEVEL IV Diagnosis: Essential (primary) hypertension[ICD10: I10] Diagnosis: Acute recurrent maxillary sinusitis[ICD10: J01.01] Andreina Hoffmann MD, [facility] CPT-4: 70647 08/27/2016 ([id number]) 96711 EST. PATIENT, LEVEL IV Diagnosis: Essential (primary) hypertension[ICD10: I10] Diagnosis: Pain in right knee[ICD10: M25.561] Diagnosis: Pain in left knee[ICD10: M25.562] Andreina Hoffmann MD, [facility] CPT-4: 64240 05/30/2016 ([id number]) 01273 EST. PATIENT, LEVEL III Diagnosis: Essential (primary) hypertension[ICD10: I10] Diagnosis: Pain in right knee[ICD10: M25.561] Gisel Hoffmann MD, [facility] CPT-4: 05490 04/19/2016 ([id number]) 11663 EST. PATIENT, LEVEL IV Diagnosis: Essential (primary) hypertension[ICD10: I10] Diagnosis: Mixed hyperlipidemia[ICD10: E78.2] Diagnosis: Pain in right knee[ICD10: M25.561] Andreina Hoffmann MD, [facility] CPT-4: 81126 01/03/2016 ([id number]) 22716 EST. PATIENT, LEVEL IV Diagnosis: Essential (primary) hypertension[ICD10: I10] Diagnosis: Mixed hyperlipidemia[ICD10: E78.2] Diagnosis: Hyperglycemia, unspecified[ICD10: R73.9] Andreina Hoffmann MD, [facility] CPT-4: 50194 10/03/2015 91680 EST. PATIENT, LEVEL IV Diagnosis: Pain in right knee[ICD10: M25.561] Tiffany Hoffmann MD, [facility] CPT-4: 94418 05/25/2015 ([id number]) 66850 EST. PATIENT, LEVEL III Diagnosis: Essential (primary) hypertension[ICD10: I10] Diagnosis: Changes in skin texture[ICD10: R23.4] Andreina Hoffmann MD, [facility] CPT-4: 56547 04/03/2015 ([id number]) 99654 EST. PATIENT, LEVEL IV Diagnosis: ESSENTIAL HYPERTENSION[ICD9: 401.9] Diagnosis: DIABETES TYPE II[ICD9: 250.00] Diagnosis: HYPERLIPIDEMIA[ICD9: 272.4] Diagnosis: OSTEOARTH NOS-UNSPEC[ICD9: 715.90] Andreina Hoffmann MD, [facility] CPT-4: 23912 11/23/2014 ([id number]) OFFICE VISIT, NEW - LEVEL 3 Diagnosis: ACUTE BRONCHITIS[ICD9: 466.0] Diagnosis: Dyspnea[ICD9: 786.09] Diagnosis: Sinusitis[ICD9: 473.9] Diagnosis: ACUTE MAXILLARY SINUSITIS[ICD9: 461.0] Andreina Hoffmann MD, [facility] CPT-4: 61112 09/20/2014 Plan of Care Planned Activity Notes [...] his back. 06/22/2018 Appointment: Andreina Hoffmann WPtel: [address] [place], [place] [phone] (15 min) Moderate 06/22/2018 Patient Education: Patient [...] normal liver response to medications. 02/18/2018 Appointment: [id number] ([facility] min) Moderate 02/18/2018 Patient Education: Patient Medication Summary Completed 02/18/2018 Patient Education: Diabetes Completed 02/18/2018 [facility]ment[id number] ([facility] min) Moderate 02/09/2018 Visit Plan: Hypertension [...] medications. 10/06/2017 App[facility]ment: [id number] ([facility] min) Moderate 10/06/2017 Patient Education: Patient [...] not improved. 06/23/2017 Appointment: Andreina Hoffmann WPtel: [phone] [phone] (15 min) Moderate 06/23/2017 Patient Education: Patient Medication Summary Completed 06/23/2017 Appointment: Andreina Hoffmann WPtel: [phone] [phone] (15 min) Moderate 06/10/2017 Visit Plan: rash [...] today. 05/21/2017 App[facility]ment: [id number] ([facility] min) Moderate 05/21/2017 Patient Education: Patient [...] today. 01/16/2017 Appointment: Andreina Hoffmann WPtel: [phone] [facility] (15 min) Moderate 01/16/2017 Patient Education: Patient Medication Summary Completed 01/16/2017 App[facility]ment: [id number] ([facility] min) Moderate 12/30/2016 Visit Plan: Hypertension [...] symptoms acutely worsen. rocephin shot - 08/27/2016 Appointment: Andreina Hoffmann WPtel: [phone] [facility] (15 min) Moderate 08/27/2016 Patient Education: Patient [...] for oxycodone 05/30/2016 Appointment: Andreina Hoffmann WPtel: [phone] [phone] (15 min) Moderate 05/30/2016 Patient Education: Patient Medication Summary Completed 05/30/2016 Patient Education: Obesity Completed 05/30/2016 [phone] [place] (30 min) Complex 05/24/2016 Visit Plan: Hypertension [...] Dr Galdamez-on IV abx-sees infection control at [facility] 04/19/2016 App[facility]itus[phone] (30 min) Complex 04/19/2016 Patient Education: Patient Medication Summary Completed 04/19/2016 Patient Education: Hypertension Completed 04/19/2016 Appointment: [id number] [place] (15 min) Moderate 04/03/2016 Visit Plan: [...] Patient Medication Summary Completed 05/25/2015 Referral: Demetrius Cedeno WPtel:[phone] Referral Completed 04/19/2015 Visit Plan: Hypertension - [...] local surgeons. 04/03/2015 Appointment: Andreina Hoffmann WPtel: [id number] (15 min) Moderate 04/03/2015 Patient Education: Patient Medication Summary Completed 04/03/2015 Patient Education: Hypertension Completed 04/03/2015 Care Plan: Referral Order SNOMED-CT : [id number] Ordered 04/03/2015 Visit Plan: Hypertension - well [...] fasting labs. 11/23/2014 Appointment: [facility]el[id number] [place] ([place] New Patient 11/23/2014 Patient Education: [...] if symptoms acutely worsen. rocephin shot - [id number] exp 12/03/14 1ML 500mg apotec kenalog [id number] [facility] 09/20/2014 Patient Education: Patient Medication Summary Completed 09/20/2014 Referral: Demetrius Cedeno WPtel:[phone] Referral Appointment Requested Instructions Comment Dr. Cedeno [...] Dr Galdamez-on IV abx-sees infection control at [facility] . Hypertension - well controlled - continue [...] if symptoms acutely worsen. rocephin shot - [id number] exp 12/03/14 1ML 500mg apotec kenalog [id number] exp may 2016[facility] squ[facility] coconut oil start taking a probiotic - like [employer] or [employer] - this will help to decrease the [...]
--- OUTSIDE RECORDS SUMMARY | 2018-08-26 06:20 | XMS REPORT | CCD ---
Author Author Andreina Hoffmann Organization [facility] Address [address] [place] [address] Phone Care Team Providers Care Drapery Cutter Name Role Phone PP Unavailable CCM Unavailable Summary Purpose Interface Exchange Insurance Providers Payer name Policy type / Coverage type Covered constitution party ID Effective Begin Date Effective End Date Blue Cross Blue Shield [facility] Blue Cross/Blue Shield [id number] Unknown WPS Medicare Part B Blue Cross/Blue Shield [id number] Unknown Family history Father Diagnosis Age At Onset Hyperlipidemia Unknown Heart Attack Unknown Hypertension Unknown Runs in the family Diagnosis Age At Onset Hypertension Unknown Mother Diagnosis Age At Onset Diabetes mellitus Type 2 Unknown Cancer Unknown Social History Social History Element Codes Description Effective Dates Marital status Unknown Leah 08/27/2016 Number of children Unknown 1 4 adopted 11/23/[address]: 2299543 Former smoker 1970- quit 11/23/2014 Alcohol history Unknown occasionally drinks alcohol 11/23/2014 Living arrangements Unknown House 09/20/2014 Employment Unknown 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 [employer]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 09/20/2014 Allergies, Adverse Reactions, Alerts [...] Instructions mupirocin 2 % topical cream RxNorm: 940663 1 Application TOP BID 07/30/2018 08/28/2018 Active mupirocin 2 % topical cream RxNorm: 082286 1 Application TOP BID 07/14/2018 07/29/2018 Inactive Lipitor 20 mg tablet RxNorm: 087444 TAKE ONE TABLET BY MOUTH DAILY AT BEDTIME 05/18/2018 05/12/2019 Active Generic For:LIPITOR 20MG 05/18/2018 8:43:47 AM triamterene 37.5 mg-hydrochlorothiazide 25 mg capsule RxNorm: 918482 TAKE 1 CAPSULE BY MOUTH DAILY 05/18/20182019 Active Generic For:DYAZIDE 37.5-25 05/18/2018 8:43:43 AM Toprol XL 25 mg tablet,extended release RxNorm: 209261 TAKE 1 TABLET BY MOUTH EVERY DAY 05/18/2018 10/14/2018 Active Generic For:TOPROL XL 25MG 05/18/2018 9:31: 21 AM betamethasone valerate 0.1 % topical ointment RxNorm: 183131 APPLY TOPICALLY TO SKIN LESIONS/RASH ON LEGS, ARMS AND BACK THREE TIMES DAILY 05/23/2018 Inactive 03/25/2018 10:44:47 AM terazosin 2 mg capsule RxNorm: 485005 TAKE 1 CAPSULE BY MOUTH DAILY 02/16/2018 08/14/2018 Active 02/16/2018 9:02:27 AM Toprol XL 25 mg tablet,extended release RxNorm: 963212 TAKE 1 TABLET BY MOUTH EVERY DAY 02/16/2018 05/17/2018 Inactive Generic For:TOPROL XL 25MG 02/16/2018 9: 19:34 AM terazosin 2 mg capsule RxNorm: 549155 TAKE 1 CAPSULE BY MOUTH DAILY 02/16/2018 02/15/2018 Inactive betamethasone valerate 0.1 % topical ointment RxNorm: 494046 APPLY TOPICALLY TO SKIN LESIONS/RASH ON LEGS, ARMS AND BACK THREE TIMES DAILY 02/09/2018 Inactive 12/12/2017 11:42:38 AM Toprol XL 25 mg tablet,extended release RxNorm: 139841 TAKE 1 TABLET BY MOUTH EVERY DAY 11/18/2017 02/15/2018 Inactive Generic For:TOPROL XL 25MG 11/18/2017 9: 12:07 AM oxycodone 5 mg tablet RxNorm: 3446954 1 Tablet(s) PO BID 201711/04/2017 Inactive betamethasone valerate 0.1 % topical ointment RxNorm: 211085 APPLY TOPICALLY TO SKIN LESIONS/RASH ON LEGS, ARMS AND BACK THREE TIMES DAILY 10/31/2017 Inactive 09/01/2017 4:21:36 PM terazosin 2 mg capsule RxNorm: 822205 TAKE 1 CAPSULE BY MOUTH DAILY 08/20/2017 02/15/2018 Inactive 08/20/2017 8:54:09 AM Toprol XL 25 mg tablet,extended release RxNorm: 432122 TAKE 1 TABLET BY MOUTH EVERY DAY 08/20/2017 11/17/2017 Inactive Generic For:TOPROL XL 25MG 08/20/2017 8: 58:18 AM betamethasone valerate 0.1 % topical ointment RxNorm: 888656 1 Application TOP TID apply to skin lesions/rash on legs, arms, back 201708/25/2017 Inactive Lipitor 20 mg tablet RxNorm: 210221 TAKE ONE TABLET BY MOUTH DAILY AT BEDTIME 05/22/2017 05/16/2018 Inactive Generic For:LIPITOR 20MG 05/22/2017 9:16:26 AM triamterene 37.5 mg-hydrochlorothiazide 25 mg capsule RxNorm: 048694 TAKE 1 CAPSULE BY MOUTH DAILY 05/22/20172018 Inactive Generic For:DYAZIDE 37.5-25 05/22/2017 9:16:22 AM betamethasone valerate 0.1 % topical ointment RxNorm: 697373 1 Application TOP TID apply to skin lesions/rash on legs, arms, back 201706/19/2017 Inactive terazosin 2 mg capsule RxNorm: 047582 TAKE 1 CAPSULE BY MOUTH DAILY 02/19/2017 08/17/2017 Inactive 02/19/2017 11:33:02 AM clobetasol 0.05 % topical cream RxNorm: 810160 1 Application TOP daily as needed 01/17/2017 No Stop Date Active mupirocin 2 % topical cream RxNorm: 269368 1 Application TOP BID 01/16/2017 02/14/2017 Inactive terazosin 2 mg capsule RxNorm: 120889 1 Capsule(s) PO daily 02/18/2017 Inactive oxycodone 5 mg tablet RxNorm: 7657158 1 Tablet(s) PO BID 201610/10/2016 Inactive ceftriaxone 500 mg solution for injection RxNorm: 1488389 1 Milliliter(s) Inj 08/27/2016 08/27/2016 Inactive azithromycin 250 mg tablet RxNorm: 783672 1 Tablet(s) PO UD take two pills on day #1, then one pill daily x 4 days 08/27/2016 01/15/2017 Inactive Toprol XL 25 mg tablet,extended release RxNorm: 605809 1 Tablet(s) PO daily 08/26/2016 12/23/2016 Inactive oxycodone 5 mg tablet RxNorm: 6653391 1 Tablet(s) PO BID 201607/27/2016 Inactive Lipitor 20 mg tablet RxNorm: 626909 1 Tablet(s) QHS TAKE 1 TABLET BY MOUTH ONCE DAILY AT BEDTIME. 05/27/2016 05/21/2017 Inactive Generic For:LIPITOR 20MG 2014 11:51:16 AM N O T I C E PRESCRIPTION PREVIOUSLY AUTHORIZED BY DOCTOR: NICHOLE ESPANA triamterene 37.5 mg-hydrochlorothiazide 25 mg capsule RxNorm: 185147 1 Capsule(s) PO daily 05/27/2016 05/21/2017 Inactive terazosin 2 mg capsule RxNorm: 927010 1 Capsule(s) PO daily 08/19/2016 Inactive terazosin 2 mg capsule RxNorm: 867832 1 Capsule(s) PO daily 04/21/2016 Inactive terazosin 5 mg capsule RxNorm: 379203 1/2 Tablet(s) PO QPM 04/21/2016 Inactive Toprol XL 25 mg tablet,extended release RxNorm: 804010 1 Tablet(s) PO daily 04/16/2016 04/15/2016 Inactive Toprol XL 25 mg tablet,extended release RxNorm: 806710 1 Tablet(s) PO daily 04/16/2016 08/13/2016 Inactive pantoprazole 40 mg tablet,delayed release RxNorm: 633319 1 Tablet(s) PO daily 04/16/2016 04/15/2016 Inactive pantoprazole 40 mg tablet,delayed release RxNorm: 330377 1 Tablet(s) PO daily 04/16/2016 01/15/2017 Inactive Toprol XL 50 mg tablet,extended release RxNorm: 952244 1 Tablet(s) PO daily 02/28/2016 04/15/2016 Inactive terazosin 5 mg capsule RxNorm: 392293 1 Tablet(s) PO QPM 201504/18/2016 Inactive oxycodone 5 mg tablet RxNorm: 6265449 1 Tablet(s) PO UD 1/2 at 3pm, 1 pill at 9pm and may take up to 2 pills bid if needed. 01/03/2016 06/27/2016 Inactive Toprol XL 50 mg tablet,extended release RxNorm: 686198 1 Tablet(s) PO daily 11/15/2015 02/27/2016 Inactive terazosin 5 mg capsule RxNorm: 736982 1 Tablet(s) PO QPM 201501/01/2016 Inactive Lipitor 20 mg tablet RxNorm: 658237 1 Tablet(s) QHS TAKE 1 TABLET BY MOUTH ONCE DAILY AT BEDTIME. 06/01/2015 05/25/2016 Inactive Generic For:LIPITOR 20MG 2014 11:51:16 AM N O T I C E PRESCRIPTION PREVIOUSLY AUTHORIZED BY DOCTOR: NICHOLE ESPANA Kenalog 40 mg/mL suspension for injection RxNorm: 1912454 1 Milliliter(s) Inj 05/25/2015 05/25/2015 Inactive terazosin 5 mg capsule RxNorm: 853082 1 Tablet(s) PO QPM 201407/05/2015 Inactive Toprol XL 50 mg tablet,extended release RxNorm: 116714 1 Tablet(s) PO daily 05/04/2015 10/30/2015 Inactive terazosin 5 mg capsule RxNorm: 982513 1 Tablet(s) PO QPM 201405/03/2015 Inactive triamterene 37.5 mg-hydrochlorothiazide 25 mg capsule RxNorm: 515583 1 Capsule(s) PO daily 04/26/2015 05/26/2016 Inactive Voltaren 1 % topical gel RxNorm: 180557 4 Gram(s) TOP QID to knees 04/19/2015 06/21/2018 Inactive Lipitor 20 mg tablet RxNorm: 248044 Tablet(s) TAKE 1 TABLET BY MOUTH ONCE DAILY AT BEDTIME. 04/13/2015 05/31/2015 Inactive Generic For:LIPITOR 20MG 03/24/2015 11: 51:16 AM N O T I C E PRESCRIPTION PREVIOUSLY AUTHORIZED BY DOCTOR:NICHOLE ESPANA Lipitor 20 mg tablet RxNorm: 567351 TAKE 1 TABLET BY MOUTH ONCE DAILY AT BEDTIME. 03/24/2015 04/12/2015 Inactive Generic For:LIPITOR 20MG 03/24/2015 11:51:16 AM N O T I C E PRESCRIPTION PREVIOUSLY AUTHORIZED BY DOCTOR:NICHOLE ESPANA Lipitor 20 mg tablet RxNorm: 983612 TAKE 1 TABLET BY MOUTH ONCE DAILY AT BEDTIME. 03/24/2015 03/23/2015 Inactive Generic For:LIPITOR 20MG 03/24/2015 11:51:16 AM N O T I C E PRESCRIPTION PREVIOUSLY AUTHORIZED BY DOCTOR:NCIHOLE ESPANA Lipitor 20 mg tablet RxNorm: 025280 1 Tablet(s) PO daily 201403/23/2015 Inactive Toprol XL 50 mg tablet,extended release RxNorm: 181223 1 Tablet(s) PO daily 03/08/2015 05/03/2015 Inactive Toprol XL 50 mg tablet,extended release RxNorm: 260817 1 Tablet(s) PO daily 03/08/2015 03/07/2015 Inactive Toprol XL 50 mg tablet,extended release RxNorm: 626868 1 Tablet(s) PO daily 03/07/2015 03/07/2015 Inactive triamterene 37.5 mg-hydrochlorothiazide 25 mg capsule RxNorm: 395588 1 Capsule(s) PO daily 01/26/2015 04/25/2015 Inactive Hytrin 5 mg tablet RxNorm: 070513 1 Tablet(s) PO QPM 201403/25/2015 Inactive triamterene 37.5 mg-hydrochlorothiazide 25 mg capsule RxNorm: 833634 1 Capsule(s) PO daily 01/25/2015 01/25/2015 Inactive Voltaren 1 % topical gel RxNorm: 913631 4 Gram(s) TOP QID to knees 11/23/2014 02/20/2015 Inactive aspirin 81 mg chewable tablet RxNorm: 142122 1 Tablet(s) PO daily 09/20/2014 12/02/2017 Inactive azithromycin 250 mg tablet RxNorm: 245704 2 Tablet(s) PO on day #1, then 1 pill on days #2-5 09/20/2014 04/02/2015 Inactive [SAVINGS FOR NON-COVERED DRUGS -- BIN: 151186, PCN: [id number], Group: XXXXX, ID# XXXXXXX, Questions: . THIS IS NOT INSURANCE.] triamterene 37.5 mg-hydrochlorothiazide 25 mg capsule RxNorm: 894011 1 Capsule(s) PO daily 09/20/2014 01/24/2015 Inactive Keflex 500 mg capsule RxNorm: 409172 1 Capsule(s) PO TID 201409/26/2014 Inactive PLEASE CALL PT TO LET HIM KNOW THAT THE ANTIBIOTICS ARE READY FOR SUPERINTENDENT RECREATION - START ON 09/21/14 Hytrin 5 mg tablet RxNorm: 985083 1 Tablet(s) PO QPM 201401/24/2015 Inactive Vitamin C 500 mg chewable tablet RxNorm: 203803 1 Tablet(s) PO daily 09/20/2014 08/27/2016 Inactive Toprol XL 50 mg tablet,extended release RxNorm: 673505 1 Tablet(s) PO daily 09/20/2014 03/06/2015 Inactive prednisone 20 mg tablet RxNorm: 512535 3 Tablet(s) PO daily 09/24/2014 Inactive [SAVINGS FOR NON-COVERED DRUGS -- BIN:[id number], PCN: [id number], Group: XXXXX, ID# [id number], Questions: . THIS IS NOT INSURANCE.] Vitamin D3 1,000 unit capsule RxNorm: 693478 1 Capsule(s) PO daily 09/20/2014 08/27/2016 Inactive fish oil-dha-epa 1,200 mg-144 mg-216 mg capsule RxNorm: 1 Capsule(s) PO daily 09/20/2014 08/27/2016 Inactive Lipitor 20 mg tablet RxNorm: 115877 1 Tablet(s) PO daily 201403/23/2015 Inactive naproxen sodium 220 mg tablet RxNorm: 387861 1 Tablet(s) PO BID as needed for pain 09/20/2014 01/02/2016 Inactive penicillin V potassium 500 mg tablet RxNorm: 771543 1 Tablet(s) PO daily - Prescribed by Dr. Adam No Start Date Active Fish Oil 360 mg-1,200 mg capsule RxNorm: 396788 1 Capsule(s) PO daily No Start Date Active Vitamin D3 2,000 unit tablet RxNorm: 760781 1 Tablet(s) PO daily No Start Date Active Stool Softener 100 mg capsule RxNorm: 0849864 1 Capsule(s) PO BID No Start Date Active Probiotic oral RxNorm : 6205 oral No Start Date Active tamsulosin 0.4 mg capsule RxNorm: 632605 1 Capsule(s) PO daily No Start Date Active Vitamin C 1,000 mg tablet RxNorm: 348486 1 Tablet(s) PO daily No Start Date Active rifampin 150 mg capsule RxNorm: 450621 1 Capsule(s) PO daily No Start Date 08/26/2016 Inactive naproxen 250 mg tablet RxNorm: 872854 Tablet(s) PO BID as needed No Start Date 06/21/2018 Inactive calcium carbonate 550 mg chewable tablet RxNorm: 055675 1 Tablet(s) PO QID as needed No Start Date 08/26/2016 Inactive clobetasol 0.05 % topical cream RxNorm: 313744 1 Application TOP daily as needed No Start Date 01/16/2017 Inactive Medication Administered Medication Codes Instructions Start Date Status ceftriaxone 500 mg solution for injection RxNorm: 7947576 1Milliliter 08/27/2016 No longer Active Kenalog 40 mg/mL suspension for injection RxNorm: 0743644 1Milliliter 05/25/2015 No longer Active Immunizations Vaccine [...] 31.1 pg 10/03/2017 Cbc With Differential Ord2 Lagrange% 10.4 % 10/03/2017 Cbc With Differential Ord2 [...] 1.44 K/ul 10/03/2017 Cbc With Differential Ord2 Lagrange ABS# 0.7 K/ul 10/03/2017 Cbc With Differential Ord2 Eos ABS# 0.3 K/ul 10/03/2017 Cbc With Differential Ord2 Baso ABS# 0.1 K/ul 10/03/2017 %Hba1C Bbl473 % HbA1c 09103-9 6.6 % 10/03/2017 %Hba1C Dte856 Gluc Ave 143 mg/dL 10/03/2017 Uric Acid [...] Metabolic Ord15 CALCIUM 9.4 mg/dL 09/23/2017 %Hba1C Qiu490 % HbA1c 03924-3 6.6 % 05/21/2017 %Hba1C Ioc269 Gluc Ave 143 mg/dL 05/21/2017 Comp Metabolic Xpj611 NA 138 mEq/L 05/21/2017 Comp Metabolic Ftw993 K 3.8 mEq/L 05/21/2017 Comp Metabolic Aeo207 CL 99 mEq/L 05/21/2017 Comp Metabolic Vnm380 CO2 31.0 mEq/L 05/21/2017 Comp Metabolic Zij839 ANION GAP 12 05/21/2017 Comp Metabolic Grm324 GLUCOSE 93 mg/dL 05/21/2017 Comp Metabolic Uzq053 Creat 0.8 mg/dL 05/21/2017 Comp Metabolic Tja356 eGFR 102 ml/min/1.73m2 05/21/2017 Comp Metabolic Axr756 BUN 13 mg/dL 05/21/2017 Comp Metabolic Qvf410 B/C Ratio 16.7 Ratio 05/21/2017 Comp Metabolic Rqv016 CALCIUM 9.9 mg/dL 05/21/2017 Comp Metabolic Ifi344 ALK PHOS 99 U/L 05/21/2017 Comp Metabolic Dwn730 AST(SGOT) 18 U/L 05/21/2017 Comp Metabolic Rnw407 ALT(SGPT) 29 U/L 05/21/2017 Comp Metabolic Ebd829 BILI T 0.7 mg/dL 05/21/2017 Comp Metabolic Ctg494 ALBUMIN 4.1 g/dL 05/21/2017 Comp Metabolic Rua303 TPRO 6.6 g/dL 05/21/2017 Comp Metabolic Bzc045 GLOB 2.6 g/dL 05/21/2017 Comp Metabolic Jnn984 A/G Ratio 1.6 Ratio 05/21/2017 Comp Metabolic Ggi163 Osmo 275 mOsmo 05/21/2017 Tsh Ord6 hTSH II 1.34 uIU/mL 05/21/2017 %Hba1C Aii970 % HbA1c 07669-9 6.4 % 10/04/2015 %Hba1C Ufs500 Gluc Ave 137 mg/dL 10/04/2015 Comp Metabolic Itp902 NA 139 mEq/L 10/04/2015 Comp Metabolic Acr399 K 3.8 mEq/L 10/04/2015 Comp Metabolic Dmw649 CL 104 mEq/L 10/04/2015 Comp Metabolic Pcl069 CO2 32.0 mEq/L 10/04/2015 Comp Metabolic Nmd648 ANION GAP 7 10/04/2015 Comp Metabolic Myh145 GLUCOSE 112 mg/dL 10/04/2015 Comp Metabolic Uat242 Creat 0.8 mg/dL 10/04/2015 Comp Metabolic Cwb827 eGFR 102 ml/min/1.73m2 10/04/2015 Comp Metabolic Kbj001 BUN 16 mg/dL 10/04/2015 Comp Metabolic Zfi118 B/C Ratio 20.5 Ratio 10/04/2015 Comp Metabolic Ebe064 CALCIUM 9.3 mg/dL 10/04/2015 Comp Metabolic Emy658 ALK PHOS 87 U/L 10/04/2015 Comp Metabolic Slc511 AST(SGOT) 17 U/L 10/04/2015 Comp Metabolic Lcr100 ALT(SGPT) 24 U/L 10/04/2015 Comp Metabolic Sci542 BILI T 0.6 mg/dL 10/04/2015 Comp Metabolic Fuz610 ALBUMIN 4.0 g/dL 10/04/2015 Comp Metabolic Agu097 TPRO 6.3 g/dL 10/04/2015 Comp Metabolic Nua676 GLOB 2.3 g/dL 10/04/2015 Comp Metabolic Qqi182 A/G Ratio 1.7 Ratio 10/04/2015 Comp Metabolic Pns007 Osmo 279 mOsmo 10/04/2015 Lipid Ord30 CHOL [...] 31.3 pg 10/04/2015 Cbc With Differential Ord2 Lagrange% 9.1 % 10/04/2015 Cbc With Differential Ord2 [...] 1.46 K/ul 10/04/2015 Cbc With Differential Ord2 Lagrange ABS# 0.6 K/ul 10/04/2015 Cbc With Differential Ord2 Eos ABS# 0.4 K/ul 10/04/2015 Cbc With Differential Ord2 Baso ABS# 0.1 K/ul 10/04/2015 %Hba1C Tfu941 % HbA1c 04709-0 6.5 % 11/24/2014 %Hba1C Fhc351 Gluc Ave 140 mg/dL 11/24/2014 Lipid Ord30 CHOL 121 mg/dL 11/23/2014 Lipid Ord30 HDL 37.0 mg/dl 11/23/2014 Lipid Ord30 TRIG 93 mg/dL 11/23/2014 Lipid Ord30 LDL 65 mg/dL 11/23/2014 Lipid Ord30 C/HDL 3.3 Ratio 11/23/2014 Comp Metabolic Rtm078 NA 135 mEq/L 11/23/2014 Comp Metabolic Xew296 K 3.7 mEq/L 11/23/2014 Comp Metabolic Ixp398 CL 101 mEq/L 11/23/2014 Comp Metabolic Rtf770 CO2 28.0 mEq/L 11/23/2014 Comp Metabolic Dii765 ANION GAP 10 11/23/2014 Comp Metabolic Nyk861 GLUCOSE 104 mg/dL 11/23/2014 Comp Metabolic Ykf823 Creat 0.8 mg/dL 11/23/2014 Comp Metabolic Rbu554 eGFR 104 ml/min/1.73m2 11/23/2014 Comp Metabolic Fji891 BUN 10 mg/dL 11/23/2014 Comp Metabolic Ipw382 B/C Ratio 13.0 Ratio 11/23/2014 Comp Metabolic Etl467 CALCIUM 9.7 mg/dL 11/23/2014 Comp Metabolic Tkr022 ALK PHOS 92 U/L 11/23/2014 Comp Metabolic Jyp510 AST(SGOT) 17 U/L 11/23/2014 Comp Metabolic Cyn250 ALT(SGPT) 26 U/L 11/23/2014 Comp Metabolic Fah040 BILI T 1.1 mg/dL 11/23/2014 Comp Metabolic Lfh837 ALBUMIN 4.1 g/dL 11/23/2014 Comp Metabolic Dop161 TPRO 6.3 g/dL 11/23/2014 Comp Metabolic Ltq447 GLOB 2.2 g/dL 11/23/2014 Comp Metabolic Jpx073 A/G Ratio 1.9 Ratio 11/23/2014 Comp Metabolic Qko400 Osmo 269 mOsmo 11/23/2014 Cbc With Differential [...] MG CPT-4: J0696 08/27/2016 DRAIN/INJECT JOINT/BURSA CPT-4: 64058 05/25/2015 TRIAMCINOLONE ACET INJ NOS CPT-4: J3301 05/25/2015 TRIAMCINOLONE ACET INJ NOS CPT-4: J3301 09/20/2014 ROCEPHIN, PER 250 MG CPT-4: J0696 09/20/2014 THER/PROPH/DIAG INJ SC/IM CPT-4: 25934 09/20/2014 Vital Signs Date Vital 06/22/2018 Blood Pressure 1: 142/68 Code : 8480-6 BMI: 30.9 Code : 80508-8 Heart Rate 1 : 57 bpm Height: 5'9" SpO2: 95% Weight: 209 lbs 02/18/2018 Blood Pressure 1: 128/72 Code : 8480-6 BMI: 31.5 Code : 60765-7 Heart Rate 1 : 68 bpm Height: 5'9" SpO2: 97% Weight: 213 lbs 10/06/2017 Blood Pressure 1: 134/70 Code : 8480-6 BMI: 31.5 Code : 20664-2 Heart Rate 1 : 65 bpm Height: 5'9" SpO2: 97% Weight: 213 lbs 06/23/2017 Blood Pressure 1: 136/72 Code : 8480-6 BMI: 31.5 Code : 07033-8 Heart Rate 1 : 64 bpm Height: 5'9" SpO2: 93% Weight: 213 lbs 05/21/2017 Blood Pressure 1: 118/80 Code : 8480-6 BMI: 32.2 Code : 31177-1 Heart Rate 1 : 76 bpm Height: 5'9" SpO2: 98% Weight: 218 lbs 01/16/2017 Blood Pressure 1: 132/78 Code : 8480-6 BMI: 31.0 Code : 87959-3 Heart Rate 1 : 63 bpm Height: 5'9" SpO2: 98% Weight: 210 lbs 08/27/2016 Blood Pressure 1: 128/72 Code : 8480-6 BMI: 30.4 Code : 45335-7 Heart Rate 1 : 69 bpm Height: 5'9" SpO2: 95% Temperature: 37.1 (C) / 98.7 (F) Weight: 206 lbs 05/30/2016 Blood Pressure 1: 136/64 Code : 8480-6 BMI: 30.7 Code : 14147-8 Heart Rate 1 : 77 bpm Height: 5'9" SpO2: 94% Weight: 208 lbs 04/19/2016 Blood Pressure 1: 108/68 Code : 8480-6 BMI: 28.8 Code : 37852-3 Height: 5'9" SpO2: 97% Weight: 195 lbs 01/03/2016 Blood Pressure 1: 120/70 Code : 8480-6 BMI: 31.0 Code : 14994-3 Heart Rate 1 : 81 bpm Height: 5'9" SpO2: 98% Weight: 210 lbs 10/03/2015 Blood Pressure 1: 128/68 Code : 8480-6 BMI: 31.7 Code : 85543-0 Heart Rate 1 : 60 bpm Height: 5'9" SpO2: 97% Weight: 215 lbs 05/25/2015 Blood Pressure 1: 138/84 Code : 8480-6 BMI: 32.6 Code : 17792-3 Heart Rate 1 : 60 bpm Height: 5'9" SpO2: 96% Weight: 221 lbs 04/03/2015 Blood Pressure 1: 142/74 Code : 8480-6 Blood Pressure 1: 136/70 Code: 8480-6 BMI: 32.5 Code: 77853-3 Heart Rate 1: 59 bpm Height: 5'9" SpO2: 94% Weight: 220 lbs 11/23/2014 Blood Pressure 1: 138/72 Code : 8480-6 BMI: 32.0 Code : 92160-8 Heart Rate 1 : 61 bpm Height: [...] data Encounters Encounter Performer Location Codes Date 56800 EST. 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 PATIENT, LEVEL IV Diagnosis: Type 2 diabetes mellitus without complications[ICD10: E11.9] Diagnosis: Essential (primary) hypertension[ICD10: I10] Diagnosis: Mixed hyperlipidemia[ICD10: E78.2] Andreina Hoffmann MD, [facility] CPT-4: 35346 02/18/2018 [id number]) 92601 EST. PATIENT, LEVEL IV Diagnosis: Essential (primary) hypertension[ICD10: I10] Diagnosis: Type 2 diabetes mellitus without complications[ICD10: E11.9] Diagnosis: Mixed hyperlipidemia[ICD10: E78.2] Andreina Hoffmann MD, [facility] CPT-4: 28686 10/06/2017 ([id number]) 78277 EST. PATIENT, LEVEL III Diagnosis: Rash and other nonspecific skin eruption[ICD10: R21] Andreina Hoffmann MD, [facility] CPT-4: 84393 06/23/2017 [id number]) 54233 EST. PATIENT, LEVEL IV Diagnosis: Essential (primary) hypertension[ICD10: I10] Diagnosis: Other abnormal glucose[ICD10: R73.09] Diagnosis: Rash and other nonspecific skin eruption[ICD10: R21] Diagnosis: Pain in right knee[ICD10: M25.561] Diagnosis: Impaired fasting glucose[ICD10: R73.01] Andreina Hoffmann MD, [facility] CPT-4: 60378 05/21/2017 [id number]) 28642 EST. PATIENT, LEVEL IV Diagnosis: Essential (primary) hypertension[ICD10: I10] Diagnosis: Pain in right knee[ICD10: M25.561] Diagnosis: Rash and other nonspecific skin eruption[ICD10: R21] Diagnosis: Other abnormal glucose[ICD10: R73.09] Diagnosis: Mixed hyperlipidemia[ICD10: E78.2] Andreina Hoffmann MD, [facility] CPT-4: 32820 01/16/2017 ([id number]) 96513 EST. PATIENT, LEVEL IV Diagnosis: Essential (primary) hypertension[ICD10: I10] Diagnosis: Acute recurrent maxillary sinusitis[ICD10: J01.01] Andreina Hoffmann MD, [facility] CPT-4: 75392 08/27/2016 ([id number]) 24699 EST. PATIENT, LEVEL IV Diagnosis: Essential (primary) hypertension[ICD10: I10] Diagnosis: Pain in right knee[ICD10: M25.561] Diagnosis: Pain in left knee[ICD10: M25.562] Andreina Hoffmann MD, [facility] CPT-4: 11760 05/30/2016 ([id number]) 67308 EST. PATIENT, LEVEL III Diagnosis: Essential (primary) hypertension[ICD10: I10] Diagnosis: Pain in right knee[ICD10: M25.561] Gisel Hoffmann MD, [facility] CPT-4: 48335 04/19/2016 ([id number]) 07071 EST. PATIENT, LEVEL IV Diagnosis: Essential (primary) hypertension[ICD10: I10] Diagnosis: Mixed hyperlipidemia[ICD10: E78.2] Diagnosis: Pain in right knee[ICD10: M25.561] Andreina Hoffmann MD, [facility] CPT-4: 89907 01/03/2016 ([id number]) 58933 EST. PATIENT, LEVEL IV Diagnosis: Essential (primary) hypertension[ICD10: I10] Diagnosis: Mixed hyperlipidemia[ICD10: E78.2] Diagnosis: Hyperglycemia, unspecified[ICD10: R73.9] Andreina Hoffmann MD, [facility] CPT-4: 86700 10/03/2015 39024 EST. PATIENT, LEVEL IV Diagnosis: Pain in right knee[ICD10: M25.561] Tiffany Hoffmann MD, [facility] CPT-4: 55579 05/25/2015 ([id number]) 23994 EST. PATIENT, LEVEL III Diagnosis: Essential (primary) hypertension[ICD10: I10] Diagnosis: Changes in skin texture[ICD10: R23.4] Andreina Hoffmann MD, [facility] CPT-4: 50605 04/03/2015 ([id number]) 07474 EST. PATIENT, LEVEL IV Diagnosis: ESSENTIAL HYPERTENSION[ICD9: 401.9] Diagnosis: DIABETES TYPE II[ICD9: 250.00] Diagnosis: HYPERLIPIDEMIA[ICD9: 272.4] Diagnosis: OSTEOARTH NOS-UNSPEC[ICD9: 715.90] Andreina Hoffmann MD, [facility] CPT-4: 50580 11/23/2014 ([id number]) OFFICE VISIT, NEW - LEVEL 3 Diagnosis: ACUTE BRONCHITIS[ICD9: 466.0] Diagnosis: Dyspnea[ICD9: 786.09] Diagnosis: Sinusitis[ICD9: 473.9] Diagnosis: ACUTE MAXILLARY SINUSITIS[ICD9: 461.0] Andreina Hoffmann MD, [facility] CPT-4: 87162 09/20/2014 Plan of Care Planned Activity Notes [...] his back. 06/22/2018 Appointment: Andreina Hoffmann WPtel: [address] [place], [place] [id number] (15 min) Moderate 06/22/2018 Patient Education: Patient [...] to medications. 02/18/2018 Appointment: Andreina Hoffmann WPtel: [address] [place], [place] [id number] [place] (15 min) Moderate 02/18/2018 Patient Education: Patient Medication Summary Completed 02/18/2018 Patient Education: Diabetes Completed 02/18/2018 [phone] [phone] ([facility] min) Moderate 02/09/2018 Visit Plan: Hypertension [...] to medications. 10/06/2017 [facility] [phone] [phone] (15 min) Moderate 10/06/2017 Patient Education: Patient [...] not improved. 06/23/2017 [facility] [phone] [phone] ([facility] min) Moderate 06/23/2017 Patient Education: Patient Medication Summary Completed 06/23/2017 [facility] [phone] [phone] ([facility] min) Moderate 06/10/2017 Visit Plan: rash [...] today. 05/21/2017 [facility]: [id number] ([facility] min) Moderate 05/21/2017 Patient Education: Patient [...] today. 01/16/2017 Appointment: Andreina Hoffmann WPtel: [phone] [id number] (15 min) Moderate 01/16/2017 Patient Education: Patient Medication Summary Completed 01/16/2017 Appointment: Andreina Hoffmann WPtel: [phone] [id number] (15 min) Moderate 12/30/2016 Visit Plan: Hypertension [...] shot - 08/27/2016 Appointment: Andreina Hoffmann WPtel: [id number] (15 min) Moderate 08/27/2016 Patient Education: [...] for oxycodone 05/30/2016 Appointment: Andre[facility] Hoffmann [id number] (15 min) Moderate 05/30/2016 Patient Education: Patient Medication Summary Completed 05/30/2016 Patient Education: Obesity Completed 05/30/2016 Appointment: Gisel Titus WPtel: [phone] (30 min) Complex 05/24/2016 Visit Plan: Hypertension [...] Dr Galdamez-on IV abx-sees infection control at [place] 04/19/2016 Appointment: Gisel Titus WPtel: [phone] (30 min) Complex 04/19/2016 Patient Education: Patient Medication Summary Completed 04/19/2016 Patient Education: Hypertension Completed 04/19/2016 App[facility]ment: [phone] [id number] (15 min) Moderate 04/03/2016 Visit Plan: Hypertension [...] Medication Summary Completed 05/25/2015 Referral: Demetrius Cedeno WPtel:[phone] Referral Completed 04/19/2015 Visit Plan: Hypertension - [...] local surgeons. 04/03/2015 Appointment: [phone] [id number] (15 min) Moderate 04/03/2015 Patient Education: Patient Medication Summary Completed 04/03/2015 Patient Education: Hypertension Completed 04/03/2015 Care Plan: Referral Order SNOMED-CT : [id number] Ordered 04/03/2015 Visit Plan: Hypertension - well [...] fasting labs. 11/23/2014 Appointment: Andre[facility]el[facility] [phone] [id number] [place] New Patient 11/23/2014 Patient Education: [...] if symptoms acutely worsen. rocephin shot - [id number] exp 12/03/14 1ML 500mg apotec kenalog [id number] exp may 2016bristol fagan squibb 09/20/2014 Patient Education: Patient Medication Summary Completed 09/20/2014 Referral: Demetrius Cedeno WPtel:[phone] Referral Appointment Requested Instructions Comment Dr. Cedeno [...] Dr Galdamez-on IV abx-sees infection control at [place] . Hypertension - well controlled - continue [...] if symptoms acutely worsen. rocephin shot - [id number] exp 12/03/14 1ML 500mg apotec kenalog [id number] [facility] squ[facility] coconut oil start taking a probiotic - like [employer] or [employer] - this will help to decrease the [...]
--- OUTSIDE RECORDS SUMMARY | 2018-08-26 06:22 | XMS REPORT | CCD ---
Author Author [facility]ina Hoffmann Organization [facility] Address [address] [place] [address] Phone Care Team Providers Care Loan Inspector Name Role Phone PP Unavailable CCM Unavailable Summary Purpose Interface Exchange Insurance Providers Payer name Policy type / Coverage type Covered republican ID Effective Begin Date Effective End Date Blue Cross Blue Shield [facility] Blue Cross/Blue Shield [id number] Unknown WPS Medicare Part B Blue Cross/Blue Shield [id number] Unknown Family history Father Diagnosis Age At Onset Hyperlipidemia Unknown Heart Attack Unknown Hypertension Unknown Runs in the family Diagnosis Age At Onset Hypertension Unknown Mother Diagnosis Age At Onset Diabetes mellitus Type 2 Unknown Cancer Unknown Social History Social History Element Codes Description Effective Dates Marital status Unknown Leah 08/27/2016 Number of children Unknown 1 4 adopted 11/23/[address]: 5439275 Former smoker 1970- quit 11/23/2014 Alcohol history Unknown occasionally drinks alcohol 11/23/2014 Living arrangements Unknown House 09/20/2014 Employment Unknown 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 09/20/2014 Allergies, Adverse Reactions, Alerts [...] Instructions mupirocin 2 % topical cream RxNorm: 991691 1 Application TOP BID 07/14/2018 08/12/2018 Active Lipitor 20 mg tablet RxNorm: 360955 TAKE ONE TABLET BY MOUTH DAILY AT BEDTIME 05/18/2018 05/12/2019 Active Generic For:LIPITOR 20MG 05/18/2018 8:43:47 AM triamterene 37.5 mg-hydrochlorothiazide 25 mg capsule RxNorm: 204232 TAKE 1 CAPSULE BY MOUTH DAILY 05/18/20182019 Active Generic For:DYAZIDE 37.5-25 05/18/2018 8:43:43 AM Toprol XL 25 mg tablet,extended release RxNorm: 033926 TAKE 1 TABLET BY MOUTH EVERY DAY 05/18/2018 10/14/2018 Active Generic For:TOPROL XL 25MG 05/18/2018 9:31: 21 AM betamethasone valerate 0.1 % topical ointment RxNorm: 219765 APPLY TOPICALLY TO SKIN LESIONS/RASH ON LEGS, ARMS AND BACK THREE TIMES DAILY 05/23/2018 Inactive 03/25/2018 10:44:47 AM terazosin 2 mg capsule RxNorm: 984125 TAKE 1 CAPSULE BY MOUTH DAILY 02/16/2018 08/14/2018 Active 02/16/2018 9:02:27 AM Toprol XL 25 mg tablet,extended release RxNorm: 936929 TAKE 1 TABLET BY MOUTH EVERY DAY 02/16/2018 05/17/2018 Inactive Generic For:TOPROL XL 25MG 02/16/2018 9: 19:34 AM terazosin 2 mg capsule RxNorm: 124485 TAKE 1 CAPSULE BY MOUTH DAILY 02/16/2018 02/15/2018 Inactive betamethasone valerate 0.1 % topical ointment RxNorm: 737046 APPLY TOPICALLY TO SKIN LESIONS/RASH ON LEGS, ARMS AND BACK THREE TIMES DAILY 02/09/2018 Inactive 12/12/2017 11:42:38 AM Toprol XL 25 mg tablet,extended release RxNorm: 508265 TAKE 1 TABLET BY MOUTH EVERY DAY 11/18/2017 02/15/2018 Inactive Generic For:TOPROL XL 25MG 11/18/2017 9: 12:07 AM oxycodone 5 mg tablet RxNorm: 5617034 1 Tablet(s) PO BID 201711/04/2017 Inactive betamethasone valerate 0.1 % topical ointment RxNorm: 484446 APPLY TOPICALLY TO SKIN LESIONS/RASH ON LEGS, ARMS AND BACK THREE TIMES DAILY 10/31/2017 Inactive 09/01/2017 4:21:36 PM terazosin 2 mg capsule RxNorm: 750663 TAKE 1 CAPSULE BY MOUTH DAILY 08/20/2017 02/15/2018 Inactive 08/20/2017 8:54:09 AM Toprol XL 25 mg tablet,extended release RxNorm: 798239 TAKE 1 TABLET BY MOUTH EVERY DAY 08/20/2017 11/17/2017 Inactive Generic For:TOPROL XL 25MG 08/20/2017 8: 58:18 AM betamethasone valerate 0.1 % topical ointment RxNorm: 573295 1 Application TOP TID apply to skin lesions/rash on legs, arms, back 201708/25/2017 Inactive Lipitor 20 mg tablet RxNorm: 476457 TAKE ONE TABLET BY MOUTH DAILY AT BEDTIME 05/22/2017 05/16/2018 Inactive Generic For:LIPITOR 20MG 05/22/2017 9:16:26 AM triamterene 37.5 mg-hydrochlorothiazide 25 mg capsule RxNorm: 184655 TAKE 1 CAPSULE BY MOUTH DAILY 05/22/20172018 Inactive Generic For:DYAZIDE 37.5-25 05/22/2017 9:16:22 AM betamethasone valerate 0.1 % topical ointment RxNorm: 330247 1 Application TOP TID apply to skin lesions/rash on legs, arms, back 201706/19/2017 Inactive terazosin 2 mg capsule RxNorm: 890988 TAKE 1 CAPSULE BY MOUTH DAILY 02/19/2017 08/17/2017 Inactive 02/19/2017 11:33:02 AM clobetasol 0.05 % topical cream RxNorm: 223559 1 Application TOP daily as needed 01/17/2017 No Stop Date Active mupirocin 2 % topical cream RxNorm: 792616 1 Application TOP BID 01/16/2017 02/14/2017 Inactive terazosin 2 mg capsule RxNorm: 082589 1 Capsule(s) PO daily 02/18/2017 Inactive oxycodone 5 mg tablet RxNorm: 9056747 1 Tablet(s) PO BID 201610/10/2016 Inactive ceftriaxone 500 mg solution for injection RxNorm: 4585860 1 Milliliter(s) Inj 08/27/2016 08/27/2016 Inactive azithromycin 250 mg tablet RxNorm: 758177 1 Tablet(s) PO UD take two pills on day #1, then one pill daily x 4 days 08/27/2016 01/15/2017 Inactive Toprol XL 25 mg tablet,extended release RxNorm: 586700 1 Tablet(s) PO daily 08/26/2016 12/23/2016 Inactive oxycodone 5 mg tablet RxNorm: 4026992 1 Tablet(s) PO BID 201607/27/2016 Inactive Lipitor 20 mg tablet RxNorm: 854967 1 Tablet(s) QHS TAKE 1 TABLET BY MOUTH ONCE DAILY AT BEDTIME. 05/27/2016 05/21/2017 Inactive Generic For:LIPITOR 20MG 2014 11:51:16 AM N O T I C E PRESCRIPTION PREVIOUSLY AUTHORIZED BY DOCTOR: NICHOLE ESPANA triamterene 37.5 mg-hydrochlorothiazide 25 mg capsule RxNorm: 628154 1 Capsule(s) PO daily 05/27/2016 05/21/2017 Inactive terazosin 2 mg capsule RxNorm: 155063 1 Capsule(s) PO daily 08/19/2016 Inactive terazosin 2 mg capsule RxNorm: 823874 1 Capsule(s) PO daily 04/21/2016 Inactive terazosin 5 mg capsule RxNorm: 009076 1/2 Tablet(s) PO QPM 04/21/2016 Inactive Toprol XL 25 mg tablet,extended release RxNorm: 978755 1 Tablet(s) PO daily 04/16/2016 04/15/2016 Inactive Toprol XL 25 mg tablet,extended release RxNorm: 168270 1 Tablet(s) PO daily 04/16/2016 08/13/2016 Inactive pantoprazole 40 mg tablet,delayed release RxNorm: 912997 1 Tablet(s) PO daily 04/16/2016 04/15/2016 Inactive pantoprazole 40 mg tablet,delayed release RxNorm: 484799 1 Tablet(s) PO daily 04/16/2016 01/15/2017 Inactive Toprol XL 50 mg tablet,extended release RxNorm: 195355 1 Tablet(s) PO daily 02/28/2016 04/15/2016 Inactive terazosin 5 mg capsule RxNorm: 260581 1 Tablet(s) PO QPM 201504/18/2016 Inactive oxycodone 5 mg tablet RxNorm: 3883889 1 Tablet(s) PO UD 1/2 at 3pm, 1 pill at 9pm and may take up to 2 pills bid if needed. 01/03/2016 06/27/2016 Inactive Toprol XL 50 mg tablet,extended release RxNorm: 973046 1 Tablet(s) PO daily 11/15/2015 02/27/2016 Inactive terazosin 5 mg capsule RxNorm: 112107 1 Tablet(s) PO QPM 201501/01/2016 Inactive Lipitor 20 mg tablet RxNorm: 104039 1 Tablet(s) QHS TAKE 1 TABLET BY MOUTH ONCE DAILY AT BEDTIME. 06/01/2015 05/25/2016 Inactive Generic For:LIPITOR 20MG 2014 11:51:16 AM N O T I C E PRESCRIPTION PREVIOUSLY AUTHORIZED BY DOCTOR: NICHOLE ESPANA Kenalog 40 mg/mL suspension for injection RxNorm: 2967120 1 Milliliter(s) Inj 05/25/2015 05/25/2015 Inactive terazosin 5 mg capsule RxNorm: 191115 1 Tablet(s) PO QPM 201407/05/2015 Inactive Toprol XL 50 mg tablet,extended release RxNorm: 638375 1 Tablet(s) PO daily 05/04/2015 10/30/2015 Inactive terazosin 5 mg capsule RxNorm: 480025 1 Tablet(s) PO QPM 201405/03/2015 Inactive triamterene 37.5 mg-hydrochlorothiazide 25 mg capsule RxNorm: 145500 1 Capsule(s) PO daily 04/26/2015 05/26/2016 Inactive Voltaren 1 % topical gel RxNorm: 297123 4 Gram(s) TOP QID to knees 04/19/2015 06/21/2018 Inactive Lipitor 20 mg tablet RxNorm: 250786 Tablet(s) TAKE 1 TABLET BY MOUTH ONCE DAILY AT BEDTIME. 04/13/2015 05/31/2015 Inactive Generic For:LIPITOR 20MG 03/24/2015 11: 51:16 AM N O T I C E PRESCRIPTION PREVIOUSLY AUTHORIZED BY DOCTOR:NICHOLE ESPANA Lipitor 20 mg tablet RxNorm: 563531 TAKE 1 TABLET BY MOUTH ONCE DAILY AT BEDTIME. 03/24/2015 04/12/2015 Inactive Generic For:LIPITOR 20MG 03/24/2015 11:51:16 AM N O T I C E PRESCRIPTION PREVIOUSLY AUTHORIZED BY DOCTOR:NICHOLE ESPANA Lipitor 20 mg tablet RxNorm: 966016 TAKE 1 TABLET BY MOUTH ONCE DAILY AT BEDTIME. 03/24/2015 03/23/2015 Inactive Generic For:LIPITOR 20MG 03/24/2015 11:51:16 AM N O T I C E PRESCRIPTION PREVIOUSLY AUTHORIZED BY DOCTOR:NICHOLE ESPANA [phone] Lipitor 20 mg tablet RxNorm: 607099 1 Tablet(s) PO daily 201403/23/2015 Inactive Toprol XL 50 mg tablet,extended release RxNorm: 293772 1 Tablet(s) PO daily 03/08/2015 05/03/2015 Inactive Toprol XL 50 mg tablet,extended release RxNorm: 403949 1 Tablet(s) PO daily 03/08/2015 03/07/2015 Inactive Toprol XL 50 mg tablet,extended release RxNorm: 270945 1 Tablet(s) PO daily 03/07/2015 03/07/2015 Inactive triamterene 37.5 mg-hydrochlorothiazide 25 mg capsule RxNorm: 067189 1 Capsule(s) PO daily 01/26/2015 04/25/2015 Inactive Hytrin 5 mg tablet RxNorm: 998807 1 Tablet(s) PO QPM 201403/25/2015 Inactive triamterene 37.5 mg-hydrochlorothiazide 25 mg capsule RxNorm: 581483 1 Capsule(s) PO daily 01/25/2015 01/25/2015 Inactive Voltaren 1 % topical gel RxNorm: 654012 4 Gram(s) TOP QID to knees 11/23/2014 02/20/2015 Inactive aspirin 81 mg chewable tablet RxNorm: 772830 1 Tablet(s) PO daily 09/20/2014 12/02/2017 Inactive azithromycin 250 mg tablet RxNorm: 306821 2 Tablet(s) PO on day #1, then 1 pill on days #2-5 09/20/2014 04/02/2015 Inactive [SAVINGS FOR NON-COVERED DRUGS -- BIN: [id number], PCN: ASPROD1, Group: XXXXX, ID# XXXXXXX, Questions: . 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 THIS IS NOT INSURANCE.] Vitamin D3 1,000 unit capsule RxNorm: 811232 1 Capsule(s) PO daily 09/20/2014 08/27/2016 Inactive fish oil-dha-epa 1,200 mg-144 mg-216 mg capsule RxNorm: 1 Capsule(s) PO daily 09/20/2014 08/27/2016 Inactive Lipitor 20 mg tablet RxNorm: 439456 1 Tablet(s) PO daily 201403/23/2015 Inactive naproxen sodium 220 mg tablet RxNorm: 241306 1 Tablet(s) PO BID as needed for pain 09/20/2014 01/02/2016 Inactive penicillin V potassium 500 mg tablet RxNorm: 406604 1 Tablet(s) PO daily - Prescribed by Dr. Adam No Start Date Active Fish Oil 360 mg-1,200 mg capsule RxNorm: 635068 1 Capsule(s) PO daily No Start Date Active Vitamin D3 2,000 unit tablet RxNorm: 910221 1 Tablet(s) PO daily No Start Date Active Stool Softener 100 mg capsule RxNorm: 8493394 1 Capsule(s) PO BID No Start Date Active Probiotic oral RxNorm : 6205 oral No Start Date Active tamsulosin 0.4 mg capsule RxNorm: 801710 1 Capsule(s) PO daily No Start Date Active Vitamin C 1,000 mg tablet RxNorm: 368353 1 Tablet(s) PO daily No Start Date Active rifampin 150 mg capsule RxNorm: 184980 1 Capsule(s) PO daily No Start Date 08/26/2016 Inactive naproxen 250 mg tablet RxNorm: 443114 Tablet(s) PO BID as needed No Start Date 06/21/2018 Inactive calcium carbonate 550 mg chewable tablet RxNorm: 335927 1 Tablet(s) PO QID as needed No Start Date 08/26/2016 Inactive clobetasol 0.05 % topical cream RxNorm: 235507 1 Application TOP daily as needed No Start Date 01/16/2017 Inactive Medication Administered Medication Codes Instructions Start Date Status ceftriaxone 500 mg solution for injection RxNorm: 5723130 1Milliliter 08/27/2016 No longer Active Kenalog 40 mg/mL suspension for injection RxNorm: 1209619 1Milliliter 05/25/2015 No longer Active Immunizations Vaccine [...] 31.1 pg 10/03/2017 Cbc With Differential Ord2 Barber% 10.4 % 10/03/2017 Cbc With Differential Ord2 [...] 1.44 K/ul 10/03/2017 Cbc With Differential Ord2 Barber ABS# 0.7 K/ul 10/03/2017 Cbc With Differential Ord2 Eos ABS# 0.3 K/ul 10/03/2017 Cbc With Differential Ord2 Baso ABS# 0.1 K/ul 10/03/2017 %Hba1C Mqw979 % HbA1c 67798-2 6.6 % 10/03/2017 %Hba1C Igl221 Gluc Ave 143 mg/dL 10/03/2017 Uric Acid [...] Metabolic Ord15 CALCIUM 9.4 mg/dL 09/23/2017 %Hba1C Fln052 % HbA1c 70071-1 6.6 % 05/21/2017 %Hba1C Sac279 Gluc Ave 143 mg/dL 05/21/2017 Comp Metabolic Lys672 NA 138 mEq/L 05/21/2017 Comp Metabolic Had474 K 3.8 mEq/L 05/21/2017 Comp Metabolic Rei745 CL 99 mEq/L 05/21/2017 Comp Metabolic Dgj999 CO2 31.0 mEq/L 05/21/2017 Comp Metabolic Hxh859 ANION GAP 12 05/21/2017 Comp Metabolic Zlc082 GLUCOSE 93 mg/dL 05/21/2017 Comp Metabolic Pxx325 Creat 0.8 mg/dL 05/21/2017 Comp Metabolic Eml017 eGFR 102 ml/min/1.73m2 05/21/2017 Comp Metabolic Gkz986 BUN 13 mg/dL 05/21/2017 Comp Metabolic Axh339 B/C Ratio 16.7 Ratio 05/21/2017 Comp Metabolic Bea902 CALCIUM 9.9 mg/dL 05/21/2017 Comp Metabolic Pwz533 ALK PHOS 99 U/L 05/21/2017 Comp Metabolic Ywr258 AST(SGOT) 18 U/L 05/21/2017 Comp Metabolic Tpn262 ALT(SGPT) 29 U/L 05/21/2017 Comp Metabolic Piu761 BILI T 0.7 mg/dL 05/21/2017 Comp Metabolic Ysm042 ALBUMIN 4.1 g/dL 05/21/2017 Comp Metabolic Uwu211 TPRO 6.6 g/dL 05/21/2017 Comp Metabolic Raa992 GLOB 2.6 g/dL 05/21/2017 Comp Metabolic Epe197 A/G Ratio 1.6 Ratio 05/21/2017 Comp Metabolic Tjz183 Osmo 275 mOsmo 05/21/2017 Tsh Ord6 hTSH II 1.34 uIU/mL 05/21/2017 %Hba1C Cfe962 % HbA1c 90164-9 6.4 % 10/04/2015 %Hba1C Wif844 Gluc Ave 137 mg/dL 10/04/2015 Comp Metabolic Tqd803 NA 139 mEq/L 10/04/2015 Comp Metabolic Fkr520 K 3.8 mEq/L 10/04/2015 Comp Metabolic Zdc646 CL 104 mEq/L 10/04/2015 Comp Metabolic Otb720 CO2 32.0 mEq/L 10/04/2015 Comp Metabolic Xdc871 ANION GAP 7 10/04/2015 Comp Metabolic Bdz171 GLUCOSE 112 mg/dL 10/04/2015 Comp Metabolic Imq823 Creat 0.8 mg/dL 10/04/2015 Comp Metabolic Jau096 eGFR 102 ml/min/1.73m2 10/04/2015 Comp Metabolic Dvf637 BUN 16 mg/dL 10/04/2015 Comp Metabolic Bxw853 B/C Ratio 20.5 Ratio 10/04/2015 Comp Metabolic Erv518 CALCIUM 9.3 mg/dL 10/04/2015 Comp Metabolic Xim210 ALK PHOS 87 U/L 10/04/2015 Comp Metabolic Rbq855 AST(SGOT) 17 U/L 10/04/2015 Comp Metabolic Zyu993 ALT(SGPT) 24 U/L 10/04/2015 Comp Metabolic Xwp997 BILI T 0.6 mg/dL 10/04/2015 Comp Metabolic Nrm656 ALBUMIN 4.0 g/dL 10/04/2015 Comp Metabolic Ppp444 TPRO 6.3 g/dL 10/04/2015 Comp Metabolic Are429 GLOB 2.3 g/dL 10/04/2015 Comp Metabolic Gnb860 A/G Ratio 1.7 Ratio 10/04/2015 Comp Metabolic Cqt023 Osmo 279 mOsmo 10/04/2015 Lipid Ord30 CHOL [...] 31.3 pg 10/04/2015 Cbc With Differential Ord2 Barber% 9.1 % 10/04/2015 Cbc With Differential Ord2 [...] 1.46 K/ul 10/04/2015 Cbc With Differential Ord2 Barber ABS# 0.6 K/ul 10/04/2015 Cbc With Differential Ord2 Eos ABS# 0.4 K/ul 10/04/2015 Cbc With Differential Ord2 Baso ABS# 0.1 K/ul 10/04/2015 %Hba1C Fon878 % HbA1c 14108-8 6.5 % 11/24/2014 %Hba1C Mht000 Gluc Ave 140 mg/dL 11/24/2014 Lipid Ord30 CHOL 121 mg/dL 11/23/2014 Lipid Ord30 HDL 37.0 mg/dl 11/23/2014 Lipid Ord30 TRIG 93 mg/dL 11/23/2014 Lipid Ord30 LDL 65 mg/dL 11/23/2014 Lipid Ord30 C/HDL 3.3 Ratio 11/23/2014 Comp Metabolic Bjr156 NA 135 mEq/L 11/23/2014 Comp Metabolic Yik323 K 3.7 mEq/L 11/23/2014 Comp Metabolic Zsm381 CL 101 mEq/L 11/23/2014 Comp Metabolic Jdj020 CO2 28.0 mEq/L 11/23/2014 Comp Metabolic Fma852 ANION GAP 10 11/23/2014 Comp Metabolic Gob527 GLUCOSE 104 mg/dL 11/23/2014 Comp Metabolic Cld596 Creat 0.8 mg/dL 11/23/2014 Comp Metabolic Cjx063 eGFR 104 ml/min/1.73m2 11/23/2014 Comp Metabolic Mhh318 BUN 10 mg/dL 11/23/2014 Comp Metabolic Ufb964 B/C Ratio 13.0 Ratio 11/23/2014 Comp Metabolic Xvi837 CALCIUM 9.7 mg/dL 11/23/2014 Comp Metabolic Gfp374 ALK PHOS 92 U/L 11/23/2014 Comp Metabolic Wzn939 AST(SGOT) 17 U/L 11/23/2014 Comp Metabolic Zpc253 ALT(SGPT) 26 U/L 11/23/2014 Comp Metabolic Ygs877 BILI T 1.1 mg/dL 11/23/2014 Comp Metabolic Nug431 ALBUMIN 4.1 g/dL 11/23/2014 Comp Metabolic Kgz622 TPRO 6.3 g/dL 11/23/2014 Comp Metabolic Hpc371 GLOB 2.2 g/dL 11/23/2014 Comp Metabolic Ysy511 A/G Ratio 1.9 Ratio 11/23/2014 Comp Metabolic Qnu568 Osmo 269 mOsmo 11/23/2014 Cbc With Differential [...] clear 05/21/2017 None Full Exam - General 1995 Ears/Nose/Throat [...] MG CPT-4: J0696 08/27/2016 DRAIN/INJECT JOINT/BURSA CPT-4: 99640 05/25/2015 TRIAMCINOLONE ACET INJ NOS CPT-4: J3301 05/25/2015 TRIAMCINOLONE ACET INJ NOS CPT-4: J3301 09/20/2014 ROCEPHIN, PER 250 MG CPT-4: J0696 09/20/2014 THER/PROPH/DIAG INJ SC/IM CPT-4: 28440 09/20/2014 Vital Signs Date Vital 06/22/2018 Blood Pressure 1: 142/68 Code : 8480-6 BMI: 30.9 Code : 91498-0 Heart Rate 1 : 57 bpm Height: 5'9" SpO2: 95% Weight: 209 lbs 02/18/2018 Blood Pressure 1: 128/72 Code : 8480-6 BMI: 31.5 Code : 10167-3 Heart Rate 1 : 68 bpm Height: 5'9" SpO2: 97% Weight: 213 lbs 10/06/2017 Blood Pressure 1: 134/70 Code : 8480-6 BMI: 31.5 Code : 87132-0 Heart Rate 1 : 65 bpm Height: 5'9" SpO2: 97% Weight: 213 lbs 06/23/2017 Blood Pressure 1: 136/72 Code : 8480-6 BMI: 31.5 Code : 17939-7 Heart Rate 1 : 64 bpm Height: 5'9" SpO2: 93% Weight: 213 lbs 05/21/2017 Blood Pressure 1: 118/80 Code : 8480-6 BMI: 32.2 Code : 82101-8 Heart Rate 1 : 76 bpm Height: 5'9" SpO2: 98% Weight: 218 lbs 01/16/2017 Blood Pressure 1: 132/78 Code : 8480-6 BMI: 31.0 Code : 29857-6 Heart Rate 1 : 63 bpm Height: 5'9" SpO2: 98% Weight: 210 lbs 08/27/2016 Blood Pressure 1: 128/72 Code : 8480-6 BMI: 30.4 Code : 13106-9 Heart Rate 1 : 69 bpm Height: 5'9" SpO2: 95% Temperature: 37.1 (C) / 98.7 (F) Weight: 206 lbs 05/30/2016 Blood Pressure 1: 136/64 Code : 8480-6 BMI: 30.7 Code : 09885-8 Heart Rate 1 : 77 bpm Height: 5'9" SpO2: 94% Weight: 208 lbs 04/19/2016 Blood Pressure 1: 108/68 Code : 8480-6 BMI: 28.8 Code : 22128-9 Height: 5'9" SpO2: 97% Weight: 195 lbs 01/03/2016 Blood Pressure 1: 120/70 Code : 8480-6 BMI: 31.0 Code : 21094-4 Heart Rate 1 : 81 bpm Height: 5'9" SpO2: 98% Weight: 210 lbs 10/03/2015 Blood Pressure 1: 128/68 Code : 8480-6 BMI: 31.7 Code : 00982-2 Heart Rate 1 : 60 bpm Height: 5'9" SpO2: 97% Weight: 215 lbs 05/25/2015 Blood Pressure 1: 138/84 Code : 8480-6 BMI: 32.6 Code : 54542-2 Heart Rate 1 : 60 bpm Height: 5'9" SpO2: 96% Weight: 221 lbs 04/03/2015 Blood Pressure 1: 142/74 Code : 8480-6 Blood Pressure 1: 136/70 Code: 8480-6 BMI: 32.5 Code: 70171-4 Heart Rate 1: 59 bpm Height: 5'9" SpO2: 94% Weight: 220 lbs 11/23/2014 Blood Pressure 1: 138/72 Code : 8480-6 BMI: 32.0 Code : 58577-1 Heart Rate 1 : 61 bpm Height: [...] data Encounters Encounter Performer Location Codes Date ([id number]) 28545 EST. 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 PATIENT, LEVEL IV Diagnosis: Type 2 diabetes mellitus without complications[ICD10: E11.9] Diagnosis: Essential (primary) hypertension[ICD10: I10] Diagnosis: Mixed hyperlipidemia[ICD10: E78.2] Andreina Hoffmann MD [facility] CPT-4: 95143 02/18/2018 ([id number]) 48089 EST. PATIENT, LEVEL IV Diagnosis: Essential (primary) hypertension[ICD10: I10] Diagnosis: Type 2 diabetes mellitus without complications[ICD10: E11.9] Diagnosis: Mixed hyperlipidemia[ICD10: E78.2] Andreina Hoffmann MD [facility] CPT-4: 76507 10/06/2017 ([id number]) 25230 EST. PATIENT, LEVEL III Diagnosis: Rash and other nonspecific skin eruption[ICD10: R21] Andreina Hoffmann MD [facility] CPT-4: 85318 06/23/2017 ([id number]) 89793 EST. PATIENT, LEVEL IV Diagnosis: Essential (primary) hypertension[ICD10: I10] Diagnosis: Other abnormal glucose[ICD10: R73.09] Diagnosis: Rash and other nonspecific skin eruption[ICD10: R21] Diagnosis: Pain in right knee[ICD10: M25.561] Diagnosis: Impaired fasting glucose[ICD10: R73.01] Andreina Hoffmann MD, [facility] CPT-4: 05356 05/21/2017 ([id number]) 65238 EST. PATIENT, LEVEL IV Diagnosis: Essential (primary) hypertension[ICD10: I10] Diagnosis: Pain in right knee[ICD10: M25.561] Diagnosis: Rash and other nonspecific skin eruption[ICD10: R21] Diagnosis: Other abnormal glucose[ICD10: R73.09] Diagnosis: Mixed hyperlipidemia[ICD10: E78.2] Andreina Hoffmann MD, [facility] CPT-4: 08116 01/16/2017 ([id number]) 53628 EST. PATIENT, LEVEL IV Diagnosis: Essential (primary) hypertension[ICD10: I10] Diagnosis: Acute recurrent maxillary sinusitis[ICD10: J01.01] Andreina Hoffmann MD, [facility] CPT-4: 96577 08/27/2016 ([id number]) 40665 EST. PATIENT, LEVEL IV Diagnosis: Essential (primary) hypertension[ICD10: I10] Diagnosis: Pain in right knee[ICD10: M25.561] Diagnosis: Pain in left knee[ICD10: M25.562] Andreina Hoffmann MD, [facility] CPT-4: 44126 05/30/2016 ([id number]) 06147 EST. PATIENT, LEVEL III Diagnosis: Essential (primary) hypertension[ICD10: I10] Diagnosis: Pain in right knee[ICD10: M25.561] Gisel Hoffmann MD, [facility] CPT-4: 80223 04/19/2016 ([id number]) 24799 EST. PATIENT, LEVEL IV Diagnosis: Essential (primary) hypertension[ICD10: I10] Diagnosis: Mixed hyperlipidemia[ICD10: E78.2] Diagnosis: Pain in right knee[ICD10: M25.561] Andreina Hoffmann MD, [facility] CPT-4: 21196 01/03/2016 ([id number]) 21805 EST. PATIENT, LEVEL IV Diagnosis: Essential (primary) hypertension[ICD10: I10] Diagnosis: Mixed hyperlipidemia[ICD10: E78.2] Diagnosis: Hyperglycemia, unspecified[ICD10: R73.9] Andreina Hoffmann MD, [facility] CPT-4: 74353 10/03/2015 20507 EST. PATIENT, LEVEL IV Diagnosis: Pain in right knee[ICD10: M25.561] Tiffany Hoffmann MD, [facility] CPT-4: 62986 05/25/2015 ([id number]) 95707 EST. PATIENT, LEVEL III Diagnosis: Essential (primary) hypertension[ICD10: I10] Diagnosis: Changes in skin texture[ICD10: R23.4] Andreina Hoffmann MD, [facility] CPT-4: 38158 04/03/2015 ([id number]) 84309 EST. PATIENT, LEVEL IV Diagnosis: ESSENTIAL HYPERTENSION[ICD9: 401.9] Diagnosis: DIABETES TYPE II[ICD9: 250.00] Diagnosis: HYPERLIPIDEMIA[ICD9: 272.4] Diagnosis: OSTEOARTH NOS-UNSPEC[ICD9: 715.90] Andreina Hoffmann MD, [facility] CPT-4: 52621 11/23/2014 ([id number]) OFFICE VISIT, NEW - LEVEL 3 Diagnosis: ACUTE BRONCHITIS[ICD9: 466.0] Diagnosis: Dyspnea[ICD9: 786.09] Diagnosis: Sinusitis[ICD9: 473.9] Diagnosis: ACUTE MAXILLARY SINUSITIS[ICD9: 461.0] Andreina Hoffmann MD, [facility] CPT-4: 56254 09/20/2014 Plan of Care Planned Activity Notes [...] his back. 06/22/2018 Appointment: Andreina Hoffmann WPtel: [address] [place], [place] [id number] (15 min) Moderate 06/22/2018 Patient Education: Patient [...] medications. 02/18/2018 [facility] [phone] [phone] ([facility] min) Moderate 02/18/2018 Patient Education: Patient Medication Summary Completed 02/18/2018 Patient Education: Diabetes Completed 02/18/2018 Appointment: Andreina Hoffmann WPtel: [id number] (15 min) Moderate 02/09/2018 Visit Plan: Hypertension [...] to medications. 10/06/2017 Appointment: Andreina Hoffmann WPtel: [facility]5 [id number] (15 min) Moderate 10/06/2017 Patient Education: Patient [...] not improved. 06/23/2017 Appointment: Andreina Hoffmann WPtel: [facility]4 [id number] (15 min) Moderate 06/23/2017 Patient Education: Patient Medication Summary Completed 06/23/2017 Appointment: Andreina Hoffmann WPtel: [id number] [place] (15 min) Moderate 06/10/2017 Visit Plan: rash [...] provided today. 05/21/2017 Appointment: Andreina Hoffmann WPtel: [address] [place], [place] [id number] [place] (15 min) Moderate 05/21/2017 Patient Education: Patient [...] provided today. 01/16/2017 Appointment: Andre[place] Hoffmann [facility]: [place] [id number] (15 min) Moderate 01/16/2017 Patient Education: Patient Medication Summary Completed 01/16/2017 Appointment: Andreina Hoffmann WPtel: [phone] [id number] (15 min) Moderate 12/30/2016 Visit Plan: Hypertension [...] not improved, or if symptoms acutely worsen. rocduyen shot - 08/27/2016 Visit Plan: Hypertension - [...] not improved, or if symptoms acutely worsen. rocduyen shot - 08/27/2016 Appointment: Andrenia Hoffmann WPtel: [phone] [id number] (15 min) Moderate 08/27/2016 Patient Education: Patient [...] for oxycodone 05/30/2016 App[facility]ment: [phone] (15 min) Moderate 05/30/2016 Patient Education: Patient Medication Summary Completed 05/30/2016 Patient Education: Obesity Completed 05/30/2016 [phone] (30 min) Complex 05/24/2016 Visit Plan: Hypertension [...] Dr Galdamez-on IV abx-sees infection control at [place] 04/19/2016 Appointment: [facility]isel [facility]el[phone] (30 min) Complex 04/19/2016 Patient Education: Patient Medication Summary Completed 04/19/2016 Patient Education: Hypertension Completed 04/19/2016 Appointment: [facility]el[phone] (15 min) Moderate 04/03/2016 Visit Plan: [...] Medication Summary Completed 05/25/2015 Referral: Demetrius Cedeno WPtel:[phone] Referral Completed 04/19/2015 Visit Plan: Hypertension - [...] local surgeons. 04/03/2015 Appointment: [facility]el[phone] (15 min) Moderate 04/03/2015 Patient Education: Patient Medication Summary Completed 04/03/2015 Patient Education: Hypertension Completed 04/03/2015 Care Plan: Referral Order SNOMED-CT : [id number] Ordered 04/03/2015 Visit Plan: Hypertension - well [...] fasting labs. 11/23/2014 Appointment: Andre[facility] Hoffmann [facility]Ptel[phone] [place] New Patient 11/23/2014 Patient [...] if symptoms acutely worsen. rocephin shot - [id number] exp 12/03/14 1ML 500mg apotec kenalog [id number] exp may 2016bristol fagan squibb 09/20/2014 Patient Education: Patient Medication Summary Completed 09/20/2014 Referral: Demetrius Cedeno WPtel:[phone] Referral Appointment Requested Instructions Comment Dr. Cedeno [...] Dr Galdamez-on IV abx-sees infection control at [place] . Hypertension - well controlled - continue [...] if symptoms acutely worsen. rocephin shot - [id number] exp 12/03/14 1ML 500mg apotec kenalog [id number] [facility] coconut oil start taking a probiotic - like Classana or Staaff - this will help to decrease the [...]
--- OUTSIDE RECORDS SUMMARY | 2018-08-26 06:25 | XMS REPORT | CCD ---
Author Author [facility] Hoffmann Organization [facility] Address [address] [place] [address] Phone Care Team Providers Care Shop Service Technician Name Role Phone PP Unavailable CCM Unavailable Summary Purpose Interface Exchange Insurance Providers Payer name Policy type / Coverage type Covered libertarian ID Effective Begin Date Effective End Date Blue Cross Blue Shield [facility] Blue Cross/Blue Shield [id number] Unknown WPS Medicare Part B Blue Cross/Blue Shield [id number] Unknown Family history Father Diagnosis Age At Onset Hyperlipidemia Unknown Heart Attack Unknown Hypertension Unknown Runs in the family Diagnosis Age At Onset Hypertension Unknown Mother Diagnosis Age At Onset Diabetes mellitus Type 2 Unknown Cancer Unknown Social History Social History Element Codes Description Effective Dates Marital status Unknown Leah 08/27/2016 Number of children Unknown 1 4 adopted 11/23/[address]: 3187712 Former smoker 1970- quit 11/23/2014 Alcohol history Unknown occasionally drinks alcohol 11/23/2014 Living arrangements Unknown House 09/20/2014 Employment Unknown 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 [employer]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 09/20/2014 Allergies, Adverse Reactions, [...] Start Date Stop Date Status Fill Instructions Lipitor 20 mg tablet RxNorm: 518353 TAKE ONE TABLET BY MOUTH DAILY AT BEDTIME 05/18/2018 05/12/2019 Active Generic For:LIPITOR 20MG 05/18/2018 8:43:47 AM triamterene 37.5 mg-hydrochlorothiazide 25 mg capsule RxNorm: 301812 TAKE 1 CAPSULE BY MOUTH DAILY 05/18/20182019 Active Generic For:DYAZIDE 37.5-25 05/18/2018 8:43:43 AM Toprol XL 25 mg tablet,extended release RxNorm: 674728 TAKE 1 TABLET BY MOUTH EVERY DAY 05/18/2018 10/14/2018 Active Generic For:TOPROL XL 25MG 05/18/2018 9:31: 21 AM betamethasone valerate 0.1 % topical ointment RxNorm: 179342 APPLY TOPICALLY TO SKIN LESIONS/RASH ON LEGS, ARMS AND BACK THREE TIMES DAILY 05/23/2018 Inactive 03/25/2018 10:44:47 AM terazosin 2 mg capsule RxNorm: 728951 TAKE 1 CAPSULE BY MOUTH DAILY 02/16/2018 08/14/2018 Active 02/16/2018 9:02:27 AM Toprol XL 25 mg tablet,extended release RxNorm: 560304 TAKE 1 TABLET BY MOUTH EVERY DAY 02/16/2018 05/17/2018 Inactive Generic For:TOPROL XL 25MG 02/16/2018 9: 19:34 AM terazosin 2 mg capsule RxNorm: 954281 TAKE 1 CAPSULE BY MOUTH DAILY 02/16/2018 02/15/2018 Inactive betamethasone valerate 0.1 % topical ointment RxNorm: 212192 APPLY TOPICALLY TO SKIN LESIONS/RASH ON LEGS, ARMS AND BACK THREE TIMES DAILY 02/09/2018 Inactive 12/12/2017 11:42:38 AM Toprol XL 25 mg tablet,extended release RxNorm: 838119 TAKE 1 TABLET BY MOUTH EVERY DAY 11/18/2017 02/15/2018 Inactive Generic For:TOPROL XL 25MG 11/18/2017 9: 12:07 AM oxycodone 5 mg tablet RxNorm: 8644387 1 Tablet(s) PO BID 201711/04/2017 Inactive betamethasone valerate 0.1 % topical ointment RxNorm: 104075 APPLY TOPICALLY TO SKIN LESIONS/RASH ON LEGS, ARMS AND BACK THREE TIMES DAILY 10/31/2017 Inactive 09/01/2017 4:21:36 PM terazosin 2 mg capsule RxNorm: 467581 TAKE 1 CAPSULE BY MOUTH DAILY 08/20/2017 02/15/2018 Inactive 08/20/2017 8:54:09 AM Toprol XL 25 mg tablet,extended release RxNorm: 929086 TAKE 1 TABLET BY MOUTH EVERY DAY 08/20/2017 11/17/2017 Inactive Generic For:TOPROL XL 25MG 08/20/2017 8: 58:18 AM betamethasone valerate 0.1 % topical ointment RxNorm: 342418 1 Application TOP TID apply to skin lesions/rash on legs, arms, back 201708/25/2017 Inactive Lipitor 20 mg tablet RxNorm: 667321 TAKE ONE TABLET BY MOUTH DAILY AT BEDTIME 05/22/2017 05/16/2018 Inactive Generic For:LIPITOR 20MG 05/22/2017 9:16:26 AM triamterene 37.5 mg-hydrochlorothiazide 25 mg capsule RxNorm: 049423 TAKE 1 CAPSULE BY MOUTH DAILY 05/22/20172018 Inactive Generic For:DYAZIDE 37.5-25 05/22/2017 9:16:22 AM betamethasone valerate 0.1 % topical ointment RxNorm: 957729 1 Application TOP TID apply to skin lesions/rash on legs, arms, back 201706/19/2017 Inactive terazosin 2 mg capsule RxNorm: 845256 TAKE 1 CAPSULE BY MOUTH DAILY 02/19/2017 08/17/2017 Inactive 02/19/2017 11:33:02 AM clobetasol 0.05 % topical cream RxNorm: 860336 1 Application TOP daily as needed 01/17/2017 No Stop Date Active mupirocin 2 % topical cream RxNorm: 626571 1 Application TOP BID 01/16/2017 02/14/2017 Inactive terazosin 2 mg capsule RxNorm: 539100 1 Capsule(s) PO daily 02/18/2017 Inactive oxycodone 5 mg tablet RxNorm: 4435720 1 Tablet(s) PO BID 201610/10/2016 Inactive ceftriaxone 500 mg solution for injection RxNorm: 3170775 1 Milliliter(s) Inj 08/27/2016 08/27/2016 Inactive azithromycin 250 mg tablet RxNorm: 796569 1 Tablet(s) PO UD take two pills on day #1, then one pill daily x 4 days 08/27/2016 01/15/2017 Inactive Toprol XL 25 mg tablet,extended release RxNorm: 630497 1 Tablet(s) PO daily 08/26/2016 12/23/2016 Inactive oxycodone 5 mg tablet RxNorm: 7409681 1 Tablet(s) PO BID 201607/27/2016 Inactive Lipitor 20 mg tablet RxNorm: 966745 1 Tablet(s) QHS TAKE 1 TABLET BY MOUTH ONCE DAILY AT BEDTIME. 05/27/2016 05/21/2017 Inactive Generic For:LIPITOR 20MG 2014 11:51:16 AM N O T I C E PRESCRIPTION PREVIOUSLY AUTHORIZED BY DOCTOR: NICHOLE ESPANA triamterene 37.5 mg-hydrochlorothiazide 25 mg capsule RxNorm: 044500 1 Capsule(s) PO daily 05/27/2016 05/21/2017 Inactive terazosin 2 mg capsule RxNorm: 252698 1 Capsule(s) PO daily 08/19/2016 Inactive terazosin 2 mg capsule RxNorm: 528714 1 Capsule(s) PO daily 04/21/2016 Inactive terazosin 5 mg capsule RxNorm: 114588 1/2 Tablet(s) PO QPM 04/21/2016 Inactive Toprol XL 25 mg tablet,extended release RxNorm: 690345 1 Tablet(s) PO daily 04/16/2016 04/15/2016 Inactive Toprol XL 25 mg tablet,extended release RxNorm: 519303 1 Tablet(s) PO daily 04/16/2016 08/13/2016 Inactive pantoprazole 40 mg tablet,delayed release RxNorm: 993134 1 Tablet(s) PO daily 04/16/2016 04/15/2016 Inactive pantoprazole 40 mg tablet,delayed release RxNorm: 734164 1 Tablet(s) PO daily 04/16/2016 01/15/2017 Inactive Toprol XL 50 mg tablet,extended release RxNorm: 870252 1 Tablet(s) PO daily 02/28/2016 04/15/2016 Inactive terazosin 5 mg capsule RxNorm: 302162 1 Tablet(s) PO QPM 201504/18/2016 Inactive oxycodone 5 mg tablet RxNorm: 3008927 1 Tablet(s) PO UD 1/2 at 3pm, 1 pill at 9pm and may take up to 2 pills bid if needed. 01/03/2016 06/27/2016 Inactive Toprol XL 50 mg tablet,extended release RxNorm: 877189 1 Tablet(s) PO daily 11/15/2015 02/27/2016 Inactive terazosin 5 mg capsule RxNorm: 673465 1 Tablet(s) PO QPM 201501/01/2016 Inactive Lipitor 20 mg tablet RxNorm: 173825 1 Tablet(s) QHS TAKE 1 TABLET BY MOUTH ONCE DAILY AT BEDTIME. 06/01/2015 05/25/2016 Inactive Generic For:LIPITOR 20MG 2014 11:51:16 AM N O T I C E PRESCRIPTION PREVIOUSLY AUTHORIZED BY DOCTOR: NICHOLE ESPANA Kenalog 40 mg/mL suspension for injection RxNorm: 9147935 1 Milliliter(s) Inj 05/25/2015 05/25/2015 Inactive terazosin 5 mg capsule RxNorm: 375488 1 Tablet(s) PO QPM 201407/05/2015 Inactive Toprol XL 50 mg tablet,extended release RxNorm: 429917 1 Tablet(s) PO daily 05/04/2015 10/30/2015 Inactive terazosin 5 mg capsule RxNorm: 805698 1 Tablet(s) PO QPM 201405/03/2015 Inactive triamterene 37.5 mg-hydrochlorothiazide 25 mg capsule RxNorm: 259779 1 Capsule(s) PO daily 04/26/2015 05/26/2016 Inactive Voltaren 1 % topical gel RxNorm: 601468 4 Gram(s) TOP QID to knees 04/19/2015 06/21/2018 Inactive Lipitor 20 mg tablet RxNorm: 456892 Tablet(s) TAKE 1 TABLET BY MOUTH ONCE DAILY AT BEDTIME. 04/13/2015 05/31/2015 Inactive Generic For:LIPITOR 20MG 03/24/2015 11: 51:16 AM N O T I C E PRESCRIPTION PREVIOUSLY AUTHORIZED BY DOCTOR:NICHOLE ESPANA Lipitor 20 mg tablet RxNorm: 635658 TAKE 1 TABLET BY MOUTH ONCE DAILY AT BEDTIME. 03/24/2015 04/12/2015 Inactive Generic For:LIPITOR 20MG 03/24/2015 11:51:16 AM N O T I C E PRESCRIPTION PREVIOUSLY AUTHORIZED BY DOCTOR:NICHOLE ESPANA Lipitor 20 mg tablet RxNorm: 824847 TAKE 1 TABLET BY MOUTH ONCE DAILY AT BEDTIME. 03/24/2015 03/23/2015 Inactive Generic For:LIPITOR 20MG 03/24/2015 11:51:16 AM N O T I C E PRESCRIPTION PREVIOUSLY AUTHORIZED BY DOCTOR:NICHOLE ESPANA Lipitor 20 mg tablet RxNorm: 517793 1 Tablet(s) PO daily 201403/23/2015 Inactive Toprol XL 50 mg tablet,extended release RxNorm: 087515 1 Tablet(s) PO daily 03/08/2015 05/03/2015 Inactive Toprol XL 50 mg tablet,extended release RxNorm: 871437 1 Tablet(s) PO daily 03/08/2015 03/07/2015 Inactive Toprol XL 50 mg tablet,extended release RxNorm: 079124 1 Tablet(s) PO daily 03/07/2015 03/07/2015 Inactive triamterene 37.5 mg-hydrochlorothiazide 25 mg capsule RxNorm: 568959 1 Capsule(s) PO daily 01/26/2015 04/25/2015 Inactive Hytrin 5 mg tablet RxNorm: 289005 1 Tablet(s) PO QPM 201403/25/2015 Inactive triamterene 37.5 mg-hydrochlorothiazide 25 mg capsule RxNorm: 003847 1 Capsule(s) PO daily 01/25/2015 01/25/2015 Inactive Voltaren 1 % topical gel RxNorm: 050419 4 Gram(s) TOP QID to knees 11/23/2014 02/20/2015 Inactive aspirin 81 mg chewable tablet RxNorm: 027688 1 Tablet(s) PO daily 09/20/2014 12/02/2017 Inactive azithromycin 250 mg tablet RxNorm: 622936 2 Tablet(s) PO on day #1, then 1 pill on days #2-5 09/20/2014 04/02/2015 Inactive [SAVINGS FOR NON-COVERED DRUGS -- BIN: [id number], PCN: [id number], Group: XXXXX, ID# XXXXXXX, Questions: . 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 THIS IS NOT INSURANCE.] Vitamin D3 1,000 unit capsule RxNorm: 687431 1 Capsule(s) PO daily 09/20/2014 08/27/2016 Inactive fish oil-dha-epa 1,200 mg-144 mg-216 mg capsule RxNorm: 1 Capsule(s) PO daily 09/20/2014 08/27/2016 Inactive Lipitor 20 mg tablet RxNorm: 929189 1 Tablet(s) PO daily 201403/23/2015 Inactive naproxen sodium 220 mg tablet RxNorm: 958599 1 Tablet(s) PO BID as needed for pain 09/20/2014 01/02/2016 Inactive penicillin V potassium 500 mg tablet RxNorm: 520265 1 Tablet(s) PO daily - Prescribed by Dr. Adam No Start Date Active Fish Oil 360 mg-1,200 mg capsule RxNorm: 825275 1 Capsule(s) PO daily No Start Date Active Vitamin D3 2,000 unit tablet RxNorm: 103497 1 Tablet(s) PO daily No Start Date Active Stool Softener 100 mg capsule RxNorm: 4413903 1 Capsule(s) PO BID No Start Date Active Probiotic oral RxNorm : 6205 oral No Start Date Active tamsulosin 0.4 mg capsule RxNorm: 720097 1 Capsule(s) PO daily No Start Date Active Vitamin C 1,000 mg tablet RxNorm: 832884 1 Tablet(s) PO daily No Start Date Active rifampin 150 mg capsule RxNorm: 332166 1 Capsule(s) PO daily No Start Date 08/26/2016 Inactive naproxen 250 mg tablet RxNorm: 124166 Tablet(s) PO BID as needed No Start Date 06/21/2018 Inactive calcium carbonate 550 mg chewable tablet RxNorm: 308411 1 Tablet(s) PO QID as needed No Start Date 08/26/2016 Inactive clobetasol 0.05 % topical cream RxNorm: 761961 1 Application TOP daily as needed No Start Date 01/16/2017 Inactive Medication Administered Medication Codes Instructions Start Date Status ceftriaxone 500 mg solution for injection RxNorm: 9921552 1Milliliter 08/27/2016 No longer Active Kenalog 40 mg/mL suspension for injection RxNorm: 9198385 1Milliliter 05/25/2015 No longer Active Immunizations Vaccine [...] 31.1 pg 10/03/2017 Cbc With Differential Ord2 [place]% 10.4 % 10/03/2017 Cbc With Differential Ord2 [...] 1.44 K/ul 10/03/2017 Cbc With Differential Ord2 [place] ABS# 0.7 K/ul 10/03/2017 Cbc With Differential Ord2 Eos ABS# 0.3 K/ul 10/03/2017 Cbc With Differential Ord2 Baso ABS# 0.1 K/ul 10/03/2017 %Hba1C Yvb254 % HbA1c 50510-2 6.6 % 10/03/2017 %Hba1C Cgo165 Gluc Ave 143 mg/dL 10/03/2017 Uric Acid [...] Metabolic Ord15 CALCIUM 9.4 mg/dL 09/23/2017 %Hba1C Slt660 % HbA1c 87757-8 6.6 % 05/21/2017 %Hba1C Wey135 Gluc Ave 143 mg/dL 05/21/2017 Comp Metabolic Onq094 NA 138 mEq/L 05/21/2017 Comp Metabolic Wcx309 K 3.8 mEq/L 05/21/2017 Comp Metabolic Qzd102 CL 99 mEq/L 05/21/2017 Comp Metabolic Odh586 CO2 31.0 mEq/L 05/21/2017 Comp Metabolic Vun165 ANION GAP 12 05/21/2017 Comp Metabolic Qwx357 GLUCOSE 93 mg/dL 05/21/2017 Comp Metabolic Ppc223 Creat 0.8 mg/dL 05/21/2017 Comp Metabolic Kdy089 eGFR 102 ml/min/1.73m2 05/21/2017 Comp Metabolic Ayk500 BUN 13 mg/dL 05/21/2017 Comp Metabolic Ova712 B/C Ratio 16.7 Ratio 05/21/2017 Comp Metabolic Gtz790 CALCIUM 9.9 mg/dL 05/21/2017 Comp Metabolic Dgj140 ALK PHOS 99 U/L 05/21/2017 Comp Metabolic Vhw929 AST(SGOT) 18 U/L 05/21/2017 Comp Metabolic Hdv134 ALT(SGPT) 29 U/L 05/21/2017 Comp Metabolic Ytn663 BILI T 0.7 mg/dL 05/21/2017 Comp Metabolic Tvm908 ALBUMIN 4.1 g/dL 05/21/2017 Comp Metabolic Vnp948 TPRO 6.6 g/dL 05/21/2017 Comp Metabolic Ekq751 GLOB 2.6 g/dL 05/21/2017 Comp Metabolic Jmn366 A/G Ratio 1.6 Ratio 05/21/2017 Comp Metabolic Bty013 Osmo 275 mOsmo 05/21/2017 Tsh Ord6 hTSH II 1.34 uIU/mL 05/21/2017 %Hba1C Cji254 % HbA1c 53735-2 6.4 % 10/04/2015 %Hba1C Gks209 Gluc Ave 137 mg/dL 10/04/2015 Comp Metabolic Bvb970 NA 139 mEq/L 10/04/2015 Comp Metabolic Dcr409 K 3.8 mEq/L 10/04/2015 Comp Metabolic Ych190 CL 104 mEq/L 10/04/2015 Comp Metabolic Btt438 CO2 32.0 mEq/L 10/04/2015 Comp Metabolic Gtt283 ANION GAP 7 10/04/2015 Comp Metabolic Kcc074 GLUCOSE 112 mg/dL 10/04/2015 Comp Metabolic Atw247 Creat 0.8 mg/dL 10/04/2015 Comp Metabolic Pjd606 eGFR 102 ml/min/1.73m2 10/04/2015 Comp Metabolic Omg397 BUN 16 mg/dL 10/04/2015 Comp Metabolic Dgc770 B/C Ratio 20.5 Ratio 10/04/2015 Comp Metabolic Qoq036 CALCIUM 9.3 mg/dL 10/04/2015 Comp Metabolic Nht182 ALK PHOS 87 U/L 10/04/2015 Comp Metabolic Wcz281 AST(SGOT) 17 U/L 10/04/2015 Comp Metabolic Oss497 ALT(SGPT) 24 U/L 10/04/2015 Comp Metabolic Rux730 BILI T 0.6 mg/dL 10/04/2015 Comp Metabolic Yoy349 ALBUMIN 4.0 g/dL 10/04/2015 Comp Metabolic Dgp402 TPRO 6.3 g/dL 10/04/2015 Comp Metabolic Gzi305 GLOB 2.3 g/dL 10/04/2015 Comp Metabolic Xye561 A/G Ratio 1.7 Ratio 10/04/2015 Comp Metabolic Bvh876 Osmo 279 mOsmo 10/04/2015 Lipid Ord30 CHOL [...] 14.0 g/dl 10/04/2015 Cbc With Differential Ord2 Neut% 60.8 % 10/04/2015 Cbc With Differential Ord2 HCT 42.3 % 10/04/2015 Cbc With Differential Ord2 Lymph% 22.2 % 10/04/2015 Cbc With Differential Ord2 MCV 94.6 fl 10/04/2015 Cbc With Differential Ord2 MCH 31.3 pg 10/04/2015 Cbc With Differential Ord2 [place]% 9.1 % 10/04/2015 Cbc With Differential Ord2 Eos% 6.7 % 10/04/2015 Cbc With Differential Ord2 MCHC 33.1 pg 10/04/2015 Cbc With Differential Ord2 Baso% 1.2 % 10/04/2015 Cbc With Differential Ord2 PLT 224 K/ul 10/04/2015 Cbc With Differential Ord2 Neut ABS# 4.00 K/ul 10/04/2015 Cbc With Differential Ord2 RDW 12.9 % 10/04/2015 Cbc With Differential Ord2 Lymph ABS# 1.46 K/ul 10/04/2015 Cbc With Differential Ord2 [place] ABS# 0.6 K/ul 10/04/2015 Cbc With Differential Ord2 Eos ABS# 0.4 K/ul 10/04/2015 Cbc With Differential Ord2 Baso ABS# 0.1 K/ul 10/04/2015 %Hba1C Tmc908 % HbA1c 89845-7 6.5 % 11/24/2014 %Hba1C Sqp201 Gluc Ave 140 mg/dL 11/24/2014 Lipid Ord30 CHOL 121 mg/dL 11/23/2014 Lipid Ord30 HDL 37.0 mg/dl 11/23/2014 Lipid Ord30 TRIG 93 mg/dL 11/23/2014 Lipid Ord30 LDL 65 mg/dL 11/23/2014 Lipid Ord30 C/HDL 3.3 Ratio 11/23/2014 Comp Metabolic Hdj141 NA 135 mEq/L 11/23/2014 Comp Metabolic Jcb911 K 3.7 mEq/L 11/23/2014 Comp Metabolic Djh141 CL 101 mEq/L 11/23/2014 Comp Metabolic Thy261 CO2 28.0 mEq/L 11/23/2014 Comp Metabolic Mea486 ANION GAP 10 11/23/2014 Comp Metabolic Del500 GLUCOSE 104 mg/dL 11/23/2014 Comp Metabolic Edd365 Creat 0.8 mg/dL 11/23/2014 Comp Metabolic Esn851 eGFR 104 ml/min/1.73m2 11/23/2014 Comp Metabolic Sok681 BUN 10 mg/dL 11/23/2014 Comp Metabolic Evt690 B/C Ratio 13.0 Ratio 11/23/2014 Comp Metabolic Peu808 CALCIUM 9.7 mg/dL 11/23/2014 Comp Metabolic Zal280 ALK PHOS 92 U/L 11/23/2014 Comp Metabolic Ekv044 AST(SGOT) 17 U/L 11/23/2014 Comp Metabolic Zoy530 ALT(SGPT) 26 U/L 11/23/2014 Comp Metabolic Hgl283 BILI T 1.1 mg/dL 11/23/2014 Comp Metabolic Glm103 ALBUMIN 4.1 g/dL 11/23/2014 Comp Metabolic Oev890 TPRO 6.3 g/dL 11/23/2014 Comp Metabolic Ywp365 GLOB 2.2 g/dL 11/23/2014 Comp Metabolic Xsq323 A/G Ratio 1.9 Ratio 11/23/2014 Comp Metabolic Azf563 Osmo 269 mOsmo 11/23/2014 Cbc With Differential [...] MG CPT-4: J0696 08/27/2016 DRAIN/INJECT JOINT/BURSA CPT-4: 62192 05/25/2015 TRIAMCINOLONE ACET INJ NOS CPT-4: J3301 05/25/2015 TRIAMCINOLONE ACET INJ NOS CPT-4: J3301 09/20/2014 ROCEPHIN, PER 250 MG CPT-4: J0696 09/20/2014 THER/PROPH/DIAG INJ SC/IM CPT-4: 47568 09/20/2014 Vital Signs Date Vital 06/22/2018 Blood Pressure 1: 142/68 Code : 8480-6 BMI: 30.9 Code : 67659-7 Heart Rate 1 : 57 bpm Height: 5'9" SpO2: 95% Weight: 209 lbs 02/18/2018 Blood Pressure 1: 128/72 Code : 8480-6 BMI: 31.5 Code : 81387-7 Heart Rate 1 : 68 bpm Height: 5'9" SpO2: 97% Weight: 213 lbs 10/06/2017 Blood Pressure 1: 134/70 Code : 8480-6 BMI: 31.5 Code : 38574-8 Heart Rate 1 : 65 bpm Height: 5'9" SpO2: 97% Weight: 213 lbs 06/23/2017 Blood Pressure 1: 136/72 Code : 8480-6 BMI: 31.5 Code : 65446-5 Heart Rate 1 : 64 bpm Height: 5'9" SpO2: 93% Weight: 213 lbs 05/21/2017 Blood Pressure 1: 118/80 Code : 8480-6 BMI: 32.2 Code : 74357-7 Heart Rate 1 : 76 bpm Height: 5'9" SpO2: 98% Weight: 218 lbs 01/16/2017 Blood Pressure 1: 132/78 Code : 8480-6 BMI: 31.0 Code : 39170-4 Heart Rate 1 : 63 bpm Height: 5'9" SpO2: 98% Weight: 210 lbs 08/27/2016 Blood Pressure 1: 128/72 Code : 8480-6 BMI: 30.4 Code : 61791-5 Heart Rate 1 : 69 bpm Height: 5'9" SpO2: 95% Temperature: 37.1 (C) / 98.7 (F) Weight: 206 lbs 05/30/2016 Blood Pressure 1: 136/64 Code : 8480-6 BMI: 30.7 Code : 15443-8 Heart Rate 1 : 77 bpm Height: 5'9" SpO2: 94% Weight: 208 lbs 04/19/2016 Blood Pressure 1: 108/68 Code : 8480-6 BMI: 28.8 Code : 36605-6 Height: 5'9" SpO2: 97% Weight: 195 lbs 01/03/2016 Blood Pressure 1: 120/70 Code : 8480-6 BMI: 31.0 Code : 10583-5 Heart Rate 1 : 81 bpm Height: 5'9" SpO2: 98% Weight: 210 lbs 10/03/2015 Blood Pressure 1: 128/68 Code : 8480-6 BMI: 31.7 Code : 66208-0 Heart Rate 1 : 60 bpm Height: 5'9" SpO2: 97% Weight: 215 lbs 05/25/2015 Blood Pressure 1: 138/84 Code : 8480-6 BMI: 32.6 Code : 56507-4 Heart Rate 1 : 60 bpm Height: 5'9" SpO2: 96% Weight: 221 lbs 04/03/2015 Blood Pressure 1: 142/74 Code : 8480-6 Blood Pressure 1: 136/70 Code: 8480-6 BMI: 32.5 Code: 65902-2 Heart Rate 1: 59 bpm Height: 5'9" SpO2: 94% Weight: 220 lbs 11/23/2014 Blood Pressure 1: 138/72 Code : 8480-6 BMI: 32.0 Code : 72789-9 Heart Rate 1 : 61 bpm Height: [...] data Encounters Encounter Performer Location Codes Date ([id number]) 17538 EST. 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 PATIENT, LEVEL IV Diagnosis: Type 2 diabetes mellitus without complications[ICD10: E11.9] Diagnosis: Essential (primary) hypertension[ICD10: I10] Diagnosis: Mixed hyperlipidemia[ICD10: E78.2] Andreina Hoffmann MD [facility] CPT-4: 52462 02/18/2018 ([id number]) 79956 EST. PATIENT, LEVEL IV Diagnosis: Essential (primary) hypertension[ICD10: I10] Diagnosis: Type 2 diabetes mellitus without complications[ICD10: E11.9] Diagnosis: Mixed hyperlipidemia[ICD10: E78.2] Andreina Hoffmann MD [facility] CPT-4: 79541 10/06/2017 ([id number]) 01324 EST. PATIENT, LEVEL III Diagnosis: Rash and other nonspecific skin eruption[ICD10: R21] Andreina Hoffmann MD [facility] CPT-4: 91280 06/23/2017 ([id number]) 91144 EST. PATIENT, LEVEL IV Diagnosis: Essential (primary) hypertension[ICD10: I10] Diagnosis: Other abnormal glucose[ICD10: R73.09] Diagnosis: Rash and other nonspecific skin eruption[ICD10: R21] Diagnosis: Pain in right knee[ICD10: M25.561] Diagnosis: Impaired fasting glucose[ICD10: R73.01] Andreina Hoffmann MD [facility] CPT-4: 15447 05/21/2017 ([id number]) 20352 EST. PATIENT, LEVEL IV Diagnosis: Essential (primary) hypertension[ICD10: I10] Diagnosis: Pain in right knee[ICD10: M25.561] Diagnosis: Rash and other nonspecific skin eruption[ICD10: R21] Diagnosis: Other abnormal glucose[ICD10: R73.09] Diagnosis: Mixed hyperlipidemia[ICD10: E78.2] Andreina Hoffmann MD [facility] CPT-4: 36711 01/16/2017 ([id number]) 14163 EST. PATIENT, LEVEL IV Diagnosis: Essential (primary) hypertension[ICD10: I10] Diagnosis: Acute recurrent maxillary sinusitis[ICD10: J01.01] Andreina Hoffmann MD, [facility] CPT-4: 47092 08/27/2016 ([id number]) 36871 EST. PATIENT, LEVEL IV Diagnosis: Essential (primary) hypertension[ICD10: I10] Diagnosis: Pain in right knee[ICD10: M25.561] Diagnosis: Pain in left knee[ICD10: M25.562] Andreina Hoffmann MD, [facility] CPT-4: 63024 05/30/2016 ([id number]) 51242 EST. PATIENT, LEVEL III Diagnosis: Essential (primary) hypertension[ICD10: I10] Diagnosis: Pain in right knee[ICD10: M25.561] Gisel Hoffmann MD, [facility] CPT-4: 50365 04/19/2016 ([id number]) 39478 EST. PATIENT, LEVEL IV Diagnosis: Essential (primary) hypertension[ICD10: I10] Diagnosis: Mixed hyperlipidemia[ICD10: E78.2] Diagnosis: Pain in right knee[ICD10: M25.561] Andreina Hoffmann MD, [facility] CPT-4: 52547 01/03/2016 ([id number]) 05511 EST. PATIENT, LEVEL IV Diagnosis: Essential (primary) hypertension[ICD10: I10] Diagnosis: Mixed hyperlipidemia[ICD10: E78.2] Diagnosis: Hyperglycemia, unspecified[ICD10: R73.9] Andreina Hoffmann MD, [facility] CPT-4: 04307 10/03/2015 [id number] EST. PATIENT, LEVEL IV Diagnosis: Pain in right knee[ICD10: M25.561] Tiffany Hoffmann MD, [facility] CPT-4: 90649 05/25/2015 ([id number]) 74967 EST. PATIENT, LEVEL III Diagnosis: Essential (primary) hypertension[ICD10: I10] Diagnosis: Changes in skin texture[ICD10: R23.4] Andreina Hoffmann MD, [facility] CPT-4: 61997 04/03/2015 ([id number]) 36348 EST. PATIENT, LEVEL IV Diagnosis: ESSENTIAL HYPERTENSION[ICD9: 401.9] Diagnosis: DIABETES TYPE II[ICD9: 250.00] Diagnosis: HYPERLIPIDEMIA[ICD9: 272.4] Diagnosis: OSTEOARTH NOS-UNSPEC[ICD9: 715.90] [facility] CPT-4: 00045 11/23/2014 ([id number]) OFFICE VISIT, NEW - LEVEL 3 Diagnosis: ACUTE BRONCHITIS[ICD9: 466.0] Diagnosis: Dyspnea[ICD9: 786.09] Diagnosis: Sinusitis[ICD9: 473.9] Diagnosis: ACUTE MAXILLARY SINUSITIS[ICD9: 461.0] [facility] CPT-4: 60971 09/20/2014 Plan of Care Planned Activity Notes [...] ibuprofen for inflammation of his back. 06/22/2018 Patient Education: Patient Medication Summary Completed [...] medications. 02/18/2018 [phone] [id number] [place] (15 min) Moderate 02/18/2018 Patient Education: Patient Medication Summary Completed 02/18/2018 Patient Education: Diabetes Completed 02/18/2018 App[facility]ment: [phone] (15 min) Moderate 02/09/2018 Visit Plan: [...] to medications. 10/06/2017 Appointment: Andreina Hoffmann WPtel: [facility] (15 min) Moderate 10/06/2017 Patient Education: Patient [...] not improved. 06/23/2017 Appointment: Andreina Hoffmann WPtel: [facility] (15 min) Moderate 06/23/2017 Patient Education: Patient Medication Summary Completed 06/23/2017 Appointment: Andreina Hoffmann WPtel: [facility] (15 min) Moderate 06/10/2017 Visit Plan: [...] provided today. 05/21/2017 Appointment: Andreina Hoffmann WPtel: [phone] [address] [place], [place] [id number] (15 min) Moderate 05/21/2017 Patient Education: Patient [...] today. 01/16/2017 Appointment: Andreina Hoffmann WPtel: [phone] [facility] (15 min) Moderate 01/16/2017 Patient Education: Patient Medication Summary Completed 01/16/2017 Appointment: Andreina Hoffmann WPtel: [phone] [facility] (15 min) Moderate 12/30/2016 Visit Plan: Hypertension [...] shot - 08/27/2016 Appointment: Andreina Hoffmann WPtel: [facility]5 [facility] (15 min) Moderate 08/27/2016 Patient Education: Patient [...] oxycodone 05/30/2016 Appointment: Andreina Hoffmann WPtel: [phone] [facility] (15 min) Moderate 05/30/2016 Patient Education: Patient Medication Summary Completed 05/30/2016 Patient Education: Obesity Completed 05/30/2016 Appointment: Gisel Titus WPtel: [phone] [phone] [place] (30 min) Complex 05/24/2016 Visit Plan: [...] Dr Galdamez-on IV abx-sees infection control at [place] 04/19/2016 Appointment: Gisel Titus WPtel: [phone] [phone] [place] (30 min) Complex 04/19/2016 Patient Education: Patient Medication Summary Completed 04/19/2016 Patient Education: Hypertension Completed 04/19/2016 [facility]: [phone] (15 min) Moderate 04/03/2016 Visit Plan: [...] Medication Summary Completed 05/25/2015 Referral: Demetrius Cedeno WPtel:[phone] Referral Completed 04/19/2015 Visit Plan: Hypertension - [...] local surgeons. 04/03/2015 Appointment: [facility]el[phone] (15 min) Moderate 04/03/2015 Patient Education: Patient Medication Summary Completed 04/03/2015 Patient Education: Hypertension Completed 04/03/2015 Care Plan: Referral Order SNOMED-CT : [id number] Ordered 04/03/2015 Visit Plan: Hypertension - well [...] fasting labs. 11/23/2014 Appointment: [facility]Ptel: [phone] [facility] [place] ([place] New Patient 11/23/2014 Patient [...] if symptoms acutely worsen. rocephin shot - [id number] exp 12/03/14 1ML 500mg apotec kenalog [id number] exp may 2016bristol fagan squibb 09/20/2014 Patient Education: Patient Medication Summary Completed 09/20/2014 Referral: Demetrius Cedeno WPtel:[phone] Referral Appointment Requested Instructions Comment Dr. Cedeno [...] Dr Galdamez-on IV abx-sees infection control at [place] . Hypertension - well controlled - continue [...] if symptoms acutely worsen. rocephin shot - [id number] exp 12/03/14 1ML 500mg apotec kenalog [id number] exp may 2016[facility] center[facility]estar squBooodl coconut oil start taking a probiotic - like [employer]AR [employer] or Globevestor - this will help to decrease the [...]
--- OUTSIDE RECORDS SUMMARY | 2018-08-26 06:28 | XMS REPORT | CCD ---
Author Author [facility]ina Hoffmann Organization [facility] Address [address] [place] [address] Phone Care Team Providers Care Tacker Off Name Role Phone PP Unavailable CCM Unavailable Summary Purpose Interface Exchange Insurance Providers Payer name Policy type / Coverage type Covered democrat ID Effective Begin Date Effective End Date Blue Cross Blue Shield [facility] Blue Cross/Blue Shield [id number] Unknown Unknown WPS Medicare Part B Blue Cross/Blue Shield [id number] Unknown Unknown Family history Father Diagnosis Age At Onset Hyperlipidemia Unknown Heart Attack Unknown Hypertension Unknown Runs in the family Diagnosis Age At Onset Hypertension Unknown Mother Diagnosis Age At Onset Diabetes mellitus Type 2 Unknown Cancer Unknown Social History Social History Element Codes Description Effective Dates Marital status Unknown Leah 08/27/2016 Number of children Unknown 1 4 adopted 11/23/[address]: 3941494 Former smoker 1970- quit 11/23/2014 Alcohol history Unknown occasionally drinks alcohol 11/23/2014 Living arrangements Unknown House 09/20/2014 Employment Unknown 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 09/20/2014 Allergies, Adverse Reactions, Alerts Substance Reaction Codes Entered Date Inactivated Date Status * NO KNOWN DRUG ALLERGIES Unknown 09/20/2014 No Inactive Date Active Past Medical History Illness Codes Condition Status Onset Date Resolved Date Essential (primary) hypertension ICD-9: 401.1 ICD-10: I10 Active 05/30/2016 Unknown Mixed hyperlipidemia ICD-9: 272.4 ICD-10: E78.2 Active 11/22/2014 Unknown Type 2 diabetes mellitus without complications ICD-9: 250.00 ICD-10: E11.9 Active 10/06/2017 Unknown Mixed hyperlipidemia ICD-9: 272.2 ICD-10: E78.2 [...] hypertension ICD-9: 401.1 ICD-10: I10 05/30/2016 Active Mixed hyperlipidemia ICD-9: 272.4 ICD-10: E78.2 11/22/2014 Active Type 2 diabetes mellitus without complications ICD-9: 250.00 ICD-10: E11.9 10/06/2017 Active Mixed hyperlipidemia ICD-9: 272.2 ICD-10: E78.2 [...] Fill Instructions Lipitor 20 mg tablet RxNorm: 178604 TAKE ONE TABLET BY MOUTH DAILY AT BEDTIME 05/18/2018 05/12/2019 Active Generic For:LIPITOR 20MG 05/18/2018 8:43:47 AM triamterene 37.5 mg-hydrochlorothiazide 25 mg capsule RxNorm: 352825 TAKE 1 CAPSULE BY MOUTH DAILY 05/18/20182019 Active Generic For:DYAZIDE 37.5-25 05/18/2018 8:43:43 AM Toprol XL 25 mg tablet,extended release RxNorm: 557857 TAKE 1 TABLET BY MOUTH EVERY DAY 05/18/2018 10/14/2018 Active Generic For:TOPROL XL 25MG 05/18/2018 9:31: 21 AM betamethasone valerate 0.1 % topical ointment RxNorm: 497309 APPLY TOPICALLY TO SKIN LESIONS/RASH ON LEGS, ARMS AND BACK THREE TIMES DAILY 05/23/2018 Active 03/25/2018 10:44:47 AM terazosin 2 mg capsule RxNorm: 381129 TAKE 1 CAPSULE BY MOUTH DAILY 02/16/2018 08/14/2018 Active 02/16/2018 9:02:27 AM Toprol XL 25 mg tablet,extended release RxNorm: 300519 TAKE 1 TABLET BY MOUTH EVERY DAY 02/16/2018 05/17/2018 Inactive Generic For:TOPROL XL 25MG 02/16/2018 9: 19:34 AM terazosin 2 mg capsule RxNorm: 074233 TAKE 1 CAPSULE BY MOUTH DAILY 02/16/2018 02/15/2018 Inactive betamethasone valerate 0.1 % topical ointment RxNorm: 441734 APPLY TOPICALLY TO SKIN LESIONS/RASH ON LEGS, ARMS AND BACK THREE TIMES DAILY 02/09/2018 Inactive 12/12/2017 11:42:38 AM Toprol XL 25 mg tablet,extended release RxNorm: 160308 TAKE 1 TABLET BY MOUTH EVERY DAY 11/18/2017 02/15/2018 Inactive Generic For:TOPROL XL 25MG 11/18/2017 9: 12:07 AM oxycodone 5 mg tablet RxNorm: 6001756 1 Tablet(s) PO BID 201711/04/2017 Inactive betamethasone valerate 0.1 % topical ointment RxNorm: 983851 APPLY TOPICALLY TO SKIN LESIONS/RASH ON LEGS, ARMS AND BACK THREE TIMES DAILY 10/31/2017 Inactive 09/01/2017 4:21:36 PM terazosin 2 mg capsule RxNorm: 291032 TAKE 1 CAPSULE BY MOUTH DAILY 08/20/2017 02/15/2018 Inactive 08/20/2017 8:54:09 AM Toprol XL 25 mg tablet,extended release RxNorm: 689389 TAKE 1 TABLET BY MOUTH EVERY DAY 08/20/2017 11/17/2017 Inactive Generic For:TOPROL XL 25MG 08/20/2017 8: 58:18 AM betamethasone valerate 0.1 % topical ointment RxNorm: 498249 1 Application TOP TID apply to skin lesions/rash on legs, arms, back 201708/25/2017 Inactive Lipitor 20 mg tablet RxNorm: 305844 TAKE ONE TABLET BY MOUTH DAILY AT BEDTIME 05/22/2017 05/16/2018 Inactive Generic For:LIPITOR 20MG 05/22/2017 9:16:26 AM triamterene 37.5 mg-hydrochlorothiazide 25 mg capsule RxNorm: 678816 TAKE 1 CAPSULE BY MOUTH DAILY 05/22/20172018 Inactive Generic For:DYAZIDE 37.5-25 05/22/2017 9:16:22 AM betamethasone valerate 0.1 % topical ointment RxNorm: 035248 1 Application TOP TID apply to skin lesions/rash on legs, arms, back 201706/19/2017 Inactive terazosin 2 mg capsule RxNorm: 435983 TAKE 1 CAPSULE BY MOUTH DAILY 02/19/2017 08/17/2017 Inactive 02/19/2017 11:33:02 AM clobetasol 0.05 % topical cream RxNorm: 839229 1 Application TOP daily as needed 01/17/2017 No Stop Date Active mupirocin 2 % topical cream RxNorm: 784856 1 Application TOP BID 01/16/2017 02/14/2017 Inactive terazosin 2 mg capsule RxNorm: 318196 1 Capsule(s) PO daily 02/18/2017 Inactive oxycodone 5 mg tablet RxNorm: 5283156 1 Tablet(s) PO BID 201610/10/2016 Inactive ceftriaxone 500 mg solution for injection RxNorm: 3556881 1 Milliliter(s) Inj 08/27/2016 08/27/2016 Inactive azithromycin 250 mg tablet RxNorm: 527639 1 Tablet(s) PO UD take two pills on day #1, then one pill daily x 4 days 08/27/2016 01/15/2017 Inactive Toprol XL 25 mg tablet,extended release RxNorm: 816831 1 Tablet(s) PO daily 08/26/2016 12/23/2016 Inactive oxycodone 5 mg tablet RxNorm: 8910463 1 Tablet(s) PO BID 201607/27/2016 Inactive Lipitor 20 mg tablet RxNorm: 606468 1 Tablet(s) QHS TAKE 1 TABLET BY MOUTH ONCE DAILY AT BEDTIME. 05/27/2016 05/21/2017 Inactive Generic For:LIPITOR 20MG 2014 11:51:16 AM N O T I C E PRESCRIPTION PREVIOUSLY AUTHORIZED BY DOCTOR: NICHOLE ESPANA triamterene 37.5 mg-hydrochlorothiazide 25 mg capsule RxNorm: 964058 1 Capsule(s) PO daily 05/27/2016 05/21/2017 Inactive terazosin 2 mg capsule RxNorm: 068080 1 Capsule(s) PO daily 08/19/2016 Inactive terazosin 2 mg capsule RxNorm: 739945 1 Capsule(s) PO daily 04/21/2016 Inactive terazosin 5 mg capsule RxNorm: 067545 1/2 Tablet(s) PO QPM 04/21/2016 Inactive Toprol XL 25 mg tablet,extended release RxNorm: 512000 1 Tablet(s) PO daily 04/16/2016 04/15/2016 Inactive Toprol XL 25 mg tablet,extended release RxNorm: 657554 1 Tablet(s) PO daily 04/16/2016 08/13/2016 Inactive pantoprazole 40 mg tablet,delayed release RxNorm: 944055 1 Tablet(s) PO daily 04/16/2016 04/15/2016 Inactive pantoprazole 40 mg tablet,delayed release RxNorm: 708540 1 Tablet(s) PO daily 04/16/2016 01/15/2017 Inactive Toprol XL 50 mg tablet,extended release RxNorm: 695105 1 Tablet(s) PO daily 02/28/2016 04/15/2016 Inactive terazosin 5 mg capsule RxNorm: 299646 1 Tablet(s) PO QPM 201504/18/2016 Inactive oxycodone 5 mg tablet RxNorm: 1615484 1 Tablet(s) PO UD 1/2 at 3pm, 1 pill at 9pm and may take up to 2 pills bid if needed. 01/03/2016 06/27/2016 Inactive Toprol XL 50 mg tablet,extended release RxNorm: 593037 1 Tablet(s) PO daily 11/15/2015 02/27/2016 Inactive terazosin 5 mg capsule RxNorm: 169122 1 Tablet(s) PO QPM 201501/01/2016 Inactive Lipitor 20 mg tablet RxNorm: 853594 1 Tablet(s) QHS TAKE 1 TABLET BY MOUTH ONCE DAILY AT BEDTIME. 06/01/2015 05/25/2016 Inactive Generic For:LIPITOR 20MG 2014 11:51:16 AM N O T I C E PRESCRIPTION PREVIOUSLY AUTHORIZED BY DOCTOR: NICHOLE ESPANA Kenalog 40 mg/mL suspension for injection RxNorm: 8099350 1 Milliliter(s) Inj 05/25/2015 05/25/2015 Inactive terazosin 5 mg capsule RxNorm: 436825 1 Tablet(s) PO QPM 201407/05/2015 Inactive Toprol XL 50 mg tablet,extended release RxNorm: 819931 1 Tablet(s) PO daily 05/04/2015 10/30/2015 Inactive terazosin 5 mg capsule RxNorm: 243669 1 Tablet(s) PO QPM 201405/03/2015 Inactive triamterene 37.5 mg-hydrochlorothiazide 25 mg capsule RxNorm: 375790 1 Capsule(s) PO daily 04/26/2015 05/26/2016 Inactive Voltaren 1 % topical gel RxNorm: 170274 4 Gram(s) TOP QID to knees 04/19/2015 07/17/2015 Inactive Lipitor 20 mg tablet RxNorm: 926065 Tablet(s) TAKE 1 TABLET BY MOUTH ONCE DAILY AT BEDTIME. 04/13/2015 05/31/2015 Inactive Generic For:LIPITOR 20MG 03/24/2015 11: 51:16 AM N O T I C E PRESCRIPTION PREVIOUSLY AUTHORIZED BY DOCTOR:NICHOLE ESPANA Lipitor 20 mg tablet RxNorm: 904622 TAKE 1 TABLET BY MOUTH ONCE DAILY AT BEDTIME. 03/24/2015 04/12/2015 Inactive Generic For:LIPITOR 20MG 03/24/2015 11:51:16 AM N O T I C E PRESCRIPTION PREVIOUSLY AUTHORIZED BY DOCTOR:NICHOLE ESPANA Lipitor 20 mg tablet RxNorm: 243524 TAKE 1 TABLET BY MOUTH ONCE DAILY AT BEDTIME. 03/24/2015 03/23/2015 Inactive Generic For:LIPITOR 20MG 03/24/2015 11:51:16 AM N O T I C E PRESCRIPTION PREVIOUSLY AUTHORIZED BY DOCTOR:NICHOLE ESPANA Lipitor 20 mg tablet RxNorm: 174928 1 Tablet(s) PO daily 201403/23/2015 Inactive Toprol XL 50 mg tablet,extended release RxNorm: 690366 1 Tablet(s) PO daily 03/08/2015 05/03/2015 Inactive Toprol XL 50 mg tablet,extended release RxNorm: 524369 1 Tablet(s) PO daily 03/08/2015 03/07/2015 Inactive Toprol XL 50 mg tablet,extended release RxNorm: 653517 1 Tablet(s) PO daily 03/07/2015 03/07/2015 Inactive triamterene 37.5 mg-hydrochlorothiazide 25 mg capsule RxNorm: 725254 1 Capsule(s) PO daily 01/26/2015 04/25/2015 Inactive Hytrin 5 mg tablet RxNorm: 074123 1 Tablet(s) PO QPM 201403/25/2015 Inactive triamterene 37.5 mg-hydrochlorothiazide 25 mg capsule RxNorm: 108689 1 Capsule(s) PO daily 01/25/2015 01/25/2015 Inactive Voltaren 1 % topical gel RxNorm: 172442 4 Gram(s) TOP QID to knees 11/23/2014 02/20/2015 Inactive aspirin 81 mg chewable tablet RxNorm: 679976 1 Tablet(s) PO daily 09/20/2014 12/02/2017 Inactive azithromycin 250 mg tablet RxNorm: 932356 2 Tablet(s) PO on day #1, then 1 pill on days #2-5 09/20/2014 04/02/2015 Inactive [SAVINGS FOR NON-COVERED DRUGS -- BIN: [id number], PCN: [id number], Group: XXXXX, ID# XXXXXXX, Questions: . 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 THIS IS NOT INSURANCE.] Vitamin D3 1,000 unit capsule RxNorm: 312515 1 Capsule(s) PO daily 09/20/2014 08/27/2016 Inactive fish oil-dha-epa 1,200 mg-144 mg-216 mg capsule RxNorm: 1 Capsule(s) PO daily 09/20/2014 08/27/2016 Inactive Lipitor 20 mg tablet RxNorm: 522672 1 Tablet(s) PO daily 201403/23/2015 Inactive naproxen sodium 220 mg tablet RxNorm: 433659 1 Tablet(s) PO BID as needed for pain 09/20/2014 01/02/2016 Inactive penicillin V potassium 500 mg tablet RxNorm: 917319 1 Tablet(s) PO daily - Prescribed by Dr. Adam No Start Date Active Fish Oil 360 mg-1,200 mg capsule RxNorm: 553146 1 Capsule(s) PO daily No Start Date Active Vitamin D3 2,000 unit tablet RxNorm: 654153 1 Tablet(s) PO daily No Start Date Active naproxen 250 mg tablet RxNorm: 391163 Tablet(s) PO BID as needed No Start Date Active Stool Softener 100 mg capsule RxNorm: 3430523 1 Capsule(s) PO BID No Start Date Active Probiotic oral RxNorm : 6205 oral No Start Date Active Vitamin C 1,000 mg tablet RxNorm: 328300 1 Tablet(s) PO daily No Start Date Active rifampin 150 mg capsule RxNorm: 928974 1 Capsule(s) PO daily No Start Date 08/26/2016 Inactive calcium carbonate 550 mg chewable tablet RxNorm: 132748 1 Tablet(s) PO QID as needed No Start Date 08/26/2016 Inactive clobetasol 0.05 % topical cream RxNorm: 014713 1 Application TOP daily as needed No Start Date 01/16/2017 Inactive Medication Administered Medication Codes Instructions Start Date Status ceftriaxone 500 mg solution for injection RxNorm: 5795836 1Milliliter 08/27/2016 No longer Active Kenalog 40 mg/mL suspension for injection RxNorm: 1777052 1Milliliter 05/25/2015 No longer Active Immunizations Vaccine Codes Date Status Influenza CVX: 141 04/06/2016 completed Assessments Condition Codes Effective Dates Essential (primary) hypertension ICD-10: I10 ICD-9: 401.1 02/18/2018 Type 2 diabetes mellitus without complications ICD-10: E11.9 ICD-9: 250.00 02/18/2018 Mixed hyperlipidemia ICD-10: E78.2 ICD-9: 272.4 02/18/2018 [...] Reason For Visit Effective Dates Notes hypertension 02/18/2018 hypertension 10/06/2017 sores 06/23/2017 hypertension [...] 31.1 pg 10/03/2017 Cbc With Differential Ord2 [place]% 10.4 % 10/03/2017 Cbc With Differential Ord2 [...] 1.44 K/ul 10/03/2017 Cbc With Differential Ord2 [place] ABS# 0.7 K/ul 10/03/2017 Cbc With Differential Ord2 Eos ABS# 0.3 K/ul 10/03/2017 Cbc With Differential Ord2 Baso ABS# 0.1 K/ul 10/03/2017 %Hba1C Eot330 % HbA1c 26511-1 6.6 % 10/03/2017 %Hba1C Wkc521 Gluc Ave 143 mg/dL 10/03/2017 Uric Acid [...] Metabolic Ord15 CALCIUM 9.4 mg/dL 09/23/2017 %Hba1C Fwy981 % HbA1c 93120-8 6.6 % 05/21/2017 %Hba1C Vqn793 Gluc Ave 143 mg/dL 05/21/2017 Comp Metabolic Gfi950 NA 138 mEq/L 05/21/2017 Comp Metabolic Mmz656 K 3.8 mEq/L 05/21/2017 Comp Metabolic Owa491 CL 99 mEq/L 05/21/2017 Comp Metabolic Csm844 CO2 31.0 mEq/L 05/21/2017 Comp Metabolic Ulk752 ANION GAP 12 05/21/2017 Comp Metabolic Tgc607 GLUCOSE 93 mg/dL 05/21/2017 Comp Metabolic Mct301 Creat 0.8 mg/dL 05/21/2017 Comp Metabolic Wpc128 eGFR 102 ml/min/1.73m2 05/21/2017 Comp Metabolic Udm838 BUN 13 mg/dL 05/21/2017 Comp Metabolic Tpd082 B/C Ratio 16.7 Ratio 05/21/2017 Comp Metabolic Kut616 CALCIUM 9.9 mg/dL 05/21/2017 Comp Metabolic Div644 ALK PHOS 99 U/L 05/21/2017 Comp Metabolic Brv440 AST(SGOT) 18 U/L 05/21/2017 Comp Metabolic Nhr596 ALT(SGPT) 29 U/L 05/21/2017 Comp Metabolic Qac460 BILI T 0.7 mg/dL 05/21/2017 Comp Metabolic Xvk478 ALBUMIN 4.1 g/dL 05/21/2017 Comp Metabolic Tnc322 TPRO 6.6 g/dL 05/21/2017 Comp Metabolic Vdc833 GLOB 2.6 g/dL 05/21/2017 Comp Metabolic Aax315 A/G Ratio 1.6 Ratio 05/21/2017 Comp Metabolic Bjb009 Osmo 275 mOsmo 05/21/2017 Tsh Ord6 hTSH II 1.34 uIU/mL 05/21/2017 %Hba1C Ucy109 % HbA1c 84255-1 6.4 % 10/04/2015 %Hba1C Iix817 Gluc Ave 137 mg/dL 10/04/2015 Comp Metabolic Ocp814 NA 139 mEq/L 10/04/2015 Comp Metabolic Lkh834 K 3.8 mEq/L 10/04/2015 Comp Metabolic Qux077 CL 104 mEq/L 10/04/2015 Comp Metabolic Fnl064 CO2 32.0 mEq/L 10/04/2015 Comp Metabolic Mgd290 ANION GAP 7 10/04/2015 Comp Metabolic Uym905 GLUCOSE 112 mg/dL 10/04/2015 Comp Metabolic Mci821 Creat 0.8 mg/dL 10/04/2015 Comp Metabolic Rer941 eGFR 102 ml/min/1.73m2 10/04/2015 Comp Metabolic Gwc253 BUN 16 mg/dL 10/04/2015 Comp Metabolic Pdy001 B/C Ratio 20.5 Ratio 10/04/2015 Comp Metabolic Vtc054 CALCIUM 9.3 mg/dL 10/04/2015 Comp Metabolic Het203 ALK PHOS 87 U/L 10/04/2015 Comp Metabolic Arl125 AST(SGOT) 17 U/L 10/04/2015 Comp Metabolic Pcy708 ALT(SGPT) 24 U/L 10/04/2015 Comp Metabolic Pmm989 BILI T 0.6 mg/dL 10/04/2015 Comp Metabolic Azc016 ALBUMIN 4.0 g/dL 10/04/2015 Comp Metabolic Vdq736 TPRO 6.3 g/dL 10/04/2015 Comp Metabolic Nli450 GLOB 2.3 g/dL 10/04/2015 Comp Metabolic Ucr050 A/G Ratio 1.7 Ratio 10/04/2015 Comp Metabolic Tes004 Osmo 279 mOsmo 10/04/2015 Lipid Ord30 CHOL [...] 31.3 pg 10/04/2015 Cbc With Differential Ord2 [place]% 9.1 % 10/04/2015 Cbc With Differential Ord2 [...] 1.46 K/ul 10/04/2015 Cbc With Differential Ord2 [place] ABS# 0.6 K/ul 10/04/2015 Cbc With Differential Ord2 Eos ABS# 0.4 K/ul 10/04/2015 Cbc With Differential Ord2 Baso ABS# 0.1 K/ul 10/04/2015 %Hba1C Sil210 % HbA1c 65366-1 6.5 % 11/24/2014 %Hba1C Mlv103 Gluc Ave 140 mg/dL 11/24/2014 Lipid Ord30 CHOL 121 mg/dL 11/23/2014 Lipid Ord30 HDL 37.0 mg/dl 11/23/2014 Lipid Ord30 TRIG 93 mg/dL 11/23/2014 Lipid Ord30 LDL 65 mg/dL 11/23/2014 Lipid Ord30 C/HDL 3.3 Ratio 11/23/2014 Comp Metabolic Dwg756 NA 135 mEq/L 11/23/2014 Comp Metabolic Jwe211 K 3.7 mEq/L 11/23/2014 Comp Metabolic Wcg394 CL 101 mEq/L 11/23/2014 Comp Metabolic Hjk503 CO2 28.0 mEq/L 11/23/2014 Comp Metabolic Mlt451 ANION GAP 10 11/23/2014 Comp Metabolic Vnq908 GLUCOSE 104 mg/dL 11/23/2014 Comp Metabolic Wko382 Creat 0.8 mg/dL 11/23/2014 Comp Metabolic Oah933 eGFR 104 ml/min/1.73m2 11/23/2014 Comp Metabolic Fyz193 BUN 10 mg/dL 11/23/2014 Comp Metabolic Uwl010 B/C Ratio 13.0 Ratio 11/23/2014 Comp Metabolic Ivc244 CALCIUM 9.7 mg/dL 11/23/2014 Comp Metabolic Uev551 ALK PHOS 92 U/L 11/23/2014 Comp Metabolic Miq552 AST(SGOT) 17 U/L 11/23/2014 Comp Metabolic Osl223 ALT(SGPT) 26 U/L 11/23/2014 Comp Metabolic Ljn638 BILI T 1.1 mg/dL 11/23/2014 Comp Metabolic Dlk261 ALBUMIN 4.1 g/dL 11/23/2014 Comp Metabolic Wsq375 TPRO 6.3 g/dL 11/23/2014 Comp Metabolic Rcp624 GLOB 2.2 g/dL 11/23/2014 Comp Metabolic Jci922 A/G Ratio 1.9 Ratio 11/23/2014 Comp Metabolic Etf960 Osmo 269 mOsmo 11/23/2014 Cbc With Differential [...] Result Effective Dates Constitutional No recent illness 2017 Constitutional No [...] MG CPT-4: J0696 08/27/2016 DRAIN/INJECT JOINT/BURSA CPT-4: 48436 05/25/2015 TRIAMCINOLONE ACET INJ NOS CPT-4: J3301 05/25/2015 TRIAMCINOLONE ACET INJ NOS CPT-4: J3301 09/20/2014 ROCEPHIN, PER 250 MG CPT-4: J0696 09/20/2014 THER/PROPH/DIAG INJ SC/IM CPT-4: 68359 09/20/2014 Vital Signs Date Vital 02/18/2018 Blood Pressure 1: 128/72 Code : 8480-6 BMI: 31.5 Code : 62820-3 Heart Rate 1 : 68 bpm Height: 5'9" SpO2: 97% Weight: 213 lbs 10/06/2017 Blood Pressure 1: 134/70 Code : 8480-6 BMI: 31.5 Code : 05700-6 Heart Rate 1 : 65 bpm Height: 5'9" SpO2: 97% Weight: 213 lbs 06/23/2017 Blood Pressure 1: 136/72 Code : 8480-6 BMI: 31.5 Code : 52364-0 Heart Rate 1 : 64 bpm Height: 5'9" SpO2: 93% Weight: 213 lbs 05/21/2017 Blood Pressure 1: 118/80 Code : 8480-6 BMI: 32.2 Code : 01433-1 Heart Rate 1 : 76 bpm Height: 5'9" SpO2: 98% Weight: 218 lbs 01/16/2017 Blood Pressure 1: 132/78 Code : 8480-6 BMI: 31.0 Code : 46609-3 Heart Rate 1 : 63 bpm Height: 5'9" SpO2: 98% Weight: 210 lbs 08/27/2016 Blood Pressure 1: 128/72 Code : 8480-6 BMI: 30.4 Code : 84222-0 Heart Rate 1 : 69 bpm Height: 5'9" SpO2: 95% Temperature: 37.1 (C) / 98.7 (F) Weight: 206 lbs 05/30/2016 Blood Pressure 1: 136/64 Code : 8480-6 BMI: 30.7 Code : 86065-9 Heart Rate 1 : 77 bpm Height: 5'9" SpO2: 94% Weight: 208 lbs 04/19/2016 Blood Pressure 1: 108/68 Code : 8480-6 BMI: 28.8 Code : 91479-8 Height: 5'9" SpO2: 97% Weight: 195 lbs 01/03/2016 Blood Pressure 1: 120/70 Code : 8480-6 BMI: 31.0 Code : 37439-1 Heart Rate 1 : 81 bpm Height: 5'9" SpO2: 98% Weight: 210 lbs 10/03/2015 Blood Pressure 1: 128/68 Code : 8480-6 BMI: 31.7 Code : 21881-2 Heart Rate 1 : 60 bpm Height: 5'9" SpO2: 97% Weight: 215 lbs 05/25/2015 Blood Pressure 1: 138/84 Code : 8480-6 BMI: 32.6 Code : 44432-8 Heart Rate 1 : 60 bpm Height: 5'9" SpO2: 96% Weight: 221 lbs 04/03/2015 Blood Pressure 1: 142/74 Code : 8480-6 Blood Pressure 1: 136/70 Code: 8480-6 BMI: 32.5 Code: 65661-7 Heart Rate 1: 59 bpm Height: 5'9" SpO2: 94% Weight: 220 lbs 11/23/2014 Blood Pressure 1: 138/72 Code : 8480-6 BMI: 32.0 Code : 86915-6 Heart Rate 1 : 61 bpm Height: 5'9" SpO2: 94% Weight: 217 lbs 09/20/2014 Blood Pressure 1: 130/72 Code : 8480-6 Heart Rate 1: 84 bpm SpO2: 98% Weight: 228 lbs Functional Status No Functional Status data History of Present Illness Symptom Name Status Result Effective Date Notes hypertension Quality primary hypertension 02/18/2018 None hypertension [...] data Encounters Encounter Performer Location Codes Date ([id number]) 17240 EST. PATIENT, LEVEL IV Diagnosis: Type 2 diabetes mellitus without complications[ICD10: E11.9] Diagnosis: Essential (primary) hypertension[ICD10: I10] Diagnosis: Mixed hyperlipidemia[ICD10: E78.2] Andreina Hoffmann MD, [facility] CPT-4: 26656 02/18/2018 [id number]) 05059 EST. PATIENT, LEVEL IV Diagnosis: Essential (primary) hypertension[ICD10: I10] Diagnosis: Type 2 diabetes mellitus without complications[ICD10: E11.9] Diagnosis: Mixed hyperlipidemia[ICD10: E78.2] Andreina Hoffmann MD, [facility] CPT-4: 19600 10/06/2017 [id number]) 25617 EST. PATIENT, LEVEL III Diagnosis: Rash and other nonspecific skin eruption[ICD10: R21] Andreina Hoffmann MD, [facility] CPT-4: 03986 06/23/2017 [id number]) 04423 EST. PATIENT, LEVEL IV Diagnosis: Essential (primary) hypertension[ICD10: I10] Diagnosis: Other abnormal glucose[ICD10: R73.09] Diagnosis: Rash and other nonspecific skin eruption[ICD10: R21] Diagnosis: Pain in right knee[ICD10: M25.561] Diagnosis: Impaired fasting glucose[ICD10: R73.01] Andreina Hoffmann MD, [facility] CPT-4: 80807 05/21/2017 ([id number]) 99188 EST. PATIENT, LEVEL IV Diagnosis: Essential (primary) hypertension[ICD10: I10] Diagnosis: Pain in right knee[ICD10: M25.561] Diagnosis: Rash and other nonspecific skin eruption[ICD10: R21] Diagnosis: Other abnormal glucose[ICD10: R73.09] Diagnosis: Mixed hyperlipidemia[ICD10: E78.2] Andreina Hoffmann MD, [facility] CPT-4: 44733 01/16/2017 ([id number]) 91413 EST. PATIENT, LEVEL IV Diagnosis: Essential (primary) hypertension[ICD10: I10] Diagnosis: Acute recurrent maxillary sinusitis[ICD10: J01.01] Andreina Hoffmann MD, [facility] CPT-4: 30535 08/27/2016 ([id number]) 76346 EST. PATIENT, LEVEL IV Diagnosis: Essential (primary) hypertension[ICD10: I10] Diagnosis: Pain in right knee[ICD10: M25.561] Diagnosis: Pain in left knee[ICD10: M25.562] Andreina Hoffmann MD, [facility] CPT-4: 95671 05/30/2016 ([id number]) 18935 EST. PATIENT, LEVEL III Diagnosis: Essential (primary) hypertension[ICD10: I10] Diagnosis: Pain in right knee[ICD10: M25.561] Gisel Hoffmann MD, [facility] CPT-4: 06873 04/19/2016 ([id number]) 16988 EST. PATIENT, LEVEL IV Diagnosis: Essential (primary) hypertension[ICD10: I10] Diagnosis: Mixed hyperlipidemia[ICD10: E78.2] Diagnosis: Pain in right knee[ICD10: M25.561] Andreina Hoffmann MD, [facility] CPT-4: 35537 01/03/2016 ([id number]) 82609 EST. PATIENT, LEVEL IV Diagnosis: Essential (primary) hypertension[ICD10: I10] Diagnosis: Mixed hyperlipidemia[ICD10: E78.2] Diagnosis: Hyperglycemia, unspecified[ICD10: R73.9] Andreina Hoffmann MD, [facility] CPT-4: 22849 10/03/2015 77536 EST. PATIENT, LEVEL IV Diagnosis: Pain in right knee[ICD10: M25.561] Tiffany Campo Andreina Hoffmann MD [facility] CPT-4: 57209 05/25/2015 ([id number]) 74095 EST. PATIENT, LEVEL III Diagnosis: Essential (primary) hypertension[ICD10: I10] Diagnosis: Changes in skin texture[ICD10: R23.4] Andreina Hoffmann MD [facility] CPT-4: 92624 04/03/2015 ([id number]) 70718 EST. PATIENT, LEVEL IV Diagnosis: ESSENTIAL HYPERTENSION[ICD9: 401.9] Diagnosis: DIABETES TYPE II[ICD9: 250.00] Diagnosis: HYPERLIPIDEMIA[ICD9: 272.4] Diagnosis: OSTEOARTH NOS-UNSPEC[ICD9: 715.90] Andreina Hoffmann MD, [facility] CPT-4: 95312 11/23/2014 ([id number]) OFFICE VISIT, NEW - LEVEL 3 Diagnosis: ACUTE BRONCHITIS[ICD9: 466.0] Diagnosis: Dyspnea[ICD9: 786.09] Diagnosis: Sinusitis[ICD9: 473.9] Diagnosis: ACUTE MAXILLARY SINUSITIS[ICD9: 461.0] Andreina Hoffmann MD, [facility] CPT-4: 98666 09/20/2014 Plan of Care Planned Activity Notes [...] to medications. 02/18/2018 Appointment: Andreina Hoffmann WPtel: [facility] [place] (15 min) Moderate 02/18/2018 Patient Education: Patient Medication Summary Completed 02/18/2018 Patient Education: Diabetes Completed 02/18/2018 Appointment: Andreina Hoffmann WPtel: [phone] [place] (15 min) Moderate 02/09/2018 Visit Plan: Hypertension [...] medications. 10/06/2017 Appointment: Andreina Hoffmann WPtel: [phone] [facility] (15 min) Moderate 10/06/2017 Patient Education: Patient [...] not improved. 06/23/2017 Appointment: Andreina Hoffmann WPtel: [phone] [facility] [place] (15 min) Moderate 06/23/2017 Patient Education: Patient Medication Summary Completed 06/23/2017 Appointment: Andreina Hoffmann WPtel: [phone] [facility] [place] (15 min) Moderate 06/10/2017 Visit Plan: [...] today. 05/21/2017 Appointment: [phone] [place] (15 min) Moderate 05/21/2017 Patient Education: Patient [...] provided today. 01/16/2017 Appointment: Andreina Hoffmann WPtel: [facility] [place] [place] (15 min) Moderate 01/16/2017 Patient Education: Patient Medication Summary Completed 01/16/2017 Appointment: Andreina Hoffmann WPtel: [facility] [place] (15 min) Moderate 12/30/2016 Visit Plan: Hypertension [...] improved, or if symptoms acutely worsen. jorge avila - 08/27/2016 Visit Plan: Hypertension - well [...] improved, or if symptoms acutely worsen. jorge avila - 08/27/2016 Appointment: Andreina Hoffmann WPtel: [phone] [place] (15 min) Moderate 08/27/2016 Patient Education: Patient [...] for oxycodone 05/30/2016 Appointment: Andreina Hoffmann WPtel: [phone] [facility] (15 min) Moderate 05/30/2016 Patient Education: Patient Medication Summary Completed 05/30/2016 Patient Education: Obesity Completed 05/30/2016 Appointment: Gisel Titus WPtel: [phone] [place] (30 min) Complex 05/24/2016 Visit [...] Dr Galdamez-on IV abx-sees infection control at [place] 04/19/2016 Appointment: [phone] [place] (30 min) Complex 04/19/2016 Patient Education: Patient Medication Summary Completed 04/19/2016 Patient Education: Hypertension Completed 04/19/2016 Appointment: Andreina Hoffmann WPtel: [facility] [place] [place] (15 min) Moderate 04/03/2016 Visit Plan: [...] Medication Summary Completed 05/25/2015 Referral: Demetrius Cedeno WPtel:[phone] Referral Completed 04/19/2015 Visit Plan: Hypertension - [...] surgeons. 04/03/2015 Appointment: Andre[facility] Hoffmann WPtel: [phone] [place] (15 min) Moderate 04/03/2015 Patient Education: Patient Medication Summary Completed 04/03/2015 Patient Education: Hypertension Completed 04/03/2015 Care Plan: Referral Order SNOMED-CT : [id number] Ordered 04/03/2015 Visit Plan: Hypertension - well [...] fasting labs. 11/23/2014 Appointment: Andreina Hoffmann WPtel: [facility] [place] [place] ([place] New Patient 11/23/2014 Patient Education: [...] if symptoms acutely worsen. rocephin shot - [id number] exp 12/03/14 1ML 500mg apotemargaux davila [id number] exp [facility] [place] 09/20/2014 Patient Education: Patient Medication Summary Completed 09/20/2014 Referral: Demetrius Cedeno WPtel:[phone] Referral Appointment Requested Instructions Comment Dr. Cedeno [...] Dr Galdamez-on IV abx-sees infection control at [place] . Hypertension - well controlled - continue [...] if symptoms acutely worsen. rocephin shot - [id number] exp 12/03/14 1ML 500mg apotec kenalog [id number] exp [facility] [place] coconut oil start taking a probiotic - like culturelle or [employer] [facility] - this will help to decrease [...]
--- OUTSIDE RECORDS SUMMARY | 2018-08-26 06:31 | XMS REPORT | CCD ---
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 Name Role Phone PP Unavailable CCM Unavailable Summary Purpose Interface Exchange Insurance Providers Payer name Policy type / Coverage type Covered alliance party ID Effective Begin Date Effective End Date Blue Cross Blue Shield [facility] Blue Cross/Blue Shield [id number] Unknown Unknown WPS Medicare Part B Blue Cross/Blue Shield [id number] Unknown Unknown Family history Father Diagnosis Age [...] 6 adopted 11/23/[address]: 2777797 Former smoker 1970- quit 11/23/2014 Alcohol history Unknown occasionally drinks alcohol 11/23/2014 Living arrangements Unknown House 09/20/2014 Employment Unknown 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 [employer] [facility]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 09/20/2014 Allergies, Adverse Reactions, Alerts [...] Fill Instructions Lipitor 20 mg tablet RxNorm: 148734 TAKE ONE TABLET BY MOUTH DAILY AT BEDTIME 05/18/2018 05/12/2019 Active Generic For:LIPITOR 20MG 05/18/2018 8:43:47 AM triamterene 37.5 mg-hydrochlorothiazide 25 mg capsule RxNorm: 958109 TAKE 1 CAPSULE BY MOUTH DAILY 05/18/20182019 Active Generic For:DYAZIDE 37.5-25 05/18/2018 8:43:43 AM betamethasone valerate 0.1 % topical ointment RxNorm: 826249 APPLY TOPICALLY TO SKIN LESIONS/RASH ON LEGS, ARMS AND BACK THREE TIMES DAILY 05/23/2018 Active 03/25/2018 10:44:47 AM Toprol XL 25 mg tablet,extended release RxNorm: 995566 TAKE 1 TABLET BY MOUTH EVERY DAY 02/16/2018 07/15/2018 Active Generic For:TOPROL XL 25MG 02/16/2018 9:19: 34 AM terazosin 2 mg capsule RxNorm: 054705 TAKE 1 CAPSULE BY MOUTH DAILY 02/16/2018 08/14/2018 Active 02/16/2018 9:02:27 AM terazosin 2 mg capsule RxNorm: 874761 TAKE 1 CAPSULE BY MOUTH DAILY 02/16/2018 02/15/2018 Inactive betamethasone valerate 0.1 % topical ointment RxNorm: 867669 APPLY TOPICALLY TO SKIN LESIONS/RASH ON LEGS, ARMS AND BACK THREE TIMES DAILY 02/09/2018 Inactive 12/12/2017 11:42:38 AM Toprol XL 25 mg tablet,extended release RxNorm: 209109 TAKE 1 TABLET BY MOUTH EVERY DAY 11/18/2017 02/15/2018 Inactive Generic For:TOPROL XL 25MG 11/18/2017 9: 12:07 AM oxycodone 5 mg tablet RxNorm: 6530533 1 Tablet(s) PO BID 201711/04/2017 Inactive betamethasone valerate 0.1 % topical ointment RxNorm: 327550 APPLY TOPICALLY TO SKIN LESIONS/RASH ON LEGS, ARMS AND BACK THREE TIMES DAILY 10/31/2017 Inactive 09/01/2017 4:21:36 PM terazosin 2 mg capsule RxNorm: 631338 TAKE 1 CAPSULE BY MOUTH DAILY 08/20/2017 02/15/2018 Inactive 08/20/2017 8:54:09 AM Toprol XL 25 mg tablet,extended release RxNorm: 042232 TAKE 1 TABLET BY MOUTH EVERY DAY 08/20/2017 11/17/2017 Inactive Generic For:TOPROL XL 25MG 08/20/2017 8: 58:18 AM betamethasone valerate 0.1 % topical ointment RxNorm: 280793 1 Application TOP TID apply to skin lesions/rash on legs, arms, back 201708/25/2017 Inactive Lipitor 20 mg tablet RxNorm: 409569 TAKE ONE TABLET BY MOUTH DAILY AT BEDTIME 05/22/2017 05/16/2018 Inactive Generic For:LIPITOR 20MG 05/22/2017 9:16:26 AM triamterene 37.5 mg-hydrochlorothiazide 25 mg capsule RxNorm: 576163 TAKE 1 CAPSULE BY MOUTH DAILY 05/22/20172018 Inactive Generic For:DYAZIDE 37.5-25 05/22/2017 9:16:22 AM betamethasone valerate 0.1 % topical ointment RxNorm: 831848 1 Application TOP TID apply to skin lesions/rash on legs, arms, back 201706/19/2017 Inactive terazosin 2 mg capsule RxNorm: 755211 TAKE 1 CAPSULE BY MOUTH DAILY 02/19/2017 08/17/2017 Inactive 02/19/2017 11:33:02 AM clobetasol 0.05 % topical cream RxNorm: 931228 1 Application TOP daily as needed 01/17/2017 No Stop Date Active mupirocin 2 % topical cream RxNorm: 131622 1 Application TOP BID 01/16/2017 02/14/2017 Inactive terazosin 2 mg capsule RxNorm: 544337 1 Capsule(s) PO daily 02/18/2017 Inactive oxycodone 5 mg tablet RxNorm: 6368564 1 Tablet(s) PO BID 201610/10/2016 Inactive ceftriaxone 500 mg solution for injection RxNorm: 3001283 1 Milliliter(s) Inj 08/27/2016 08/27/2016 Inactive azithromycin 250 mg tablet RxNorm: 015194 1 Tablet(s) PO UD take two pills on day #1, then one pill daily x 4 days 08/27/2016 01/15/2017 Inactive Toprol XL 25 mg tablet,extended release RxNorm: 462152 1 Tablet(s) PO daily 08/26/2016 12/23/2016 Inactive oxycodone 5 mg tablet RxNorm: 4656884 1 Tablet(s) PO BID 201607/27/2016 Inactive Lipitor 20 mg tablet RxNorm: 513334 1 Tablet(s) QHS TAKE 1 TABLET BY MOUTH ONCE DAILY AT BEDTIME. 05/27/2016 05/21/2017 Inactive Generic For:LIPITOR 20MG 2014 11:51:16 AM N O T I C E PRESCRIPTION PREVIOUSLY AUTHORIZED BY DOCTOR: NICHOLE ESPANA triamterene 37.5 mg-hydrochlorothiazide 25 mg capsule RxNorm: 499945 1 Capsule(s) PO daily 05/27/2016 05/21/2017 Inactive terazosin 2 mg capsule RxNorm: 834095 1 Capsule(s) PO daily 08/19/2016 Inactive terazosin 2 mg capsule RxNorm: 236674 1 Capsule(s) PO daily 04/21/2016 Inactive terazosin 5 mg capsule RxNorm: 127935 1/2 Tablet(s) PO QPM 04/21/2016 Inactive Toprol XL 25 mg tablet,extended release RxNorm: 626108 1 Tablet(s) PO daily 04/16/2016 04/15/2016 Inactive Toprol XL 25 mg tablet,extended release RxNorm: 689190 1 Tablet(s) PO daily 04/16/2016 08/13/2016 Inactive pantoprazole 40 mg tablet,delayed release RxNorm: 395153 1 Tablet(s) PO daily 04/16/2016 04/15/2016 Inactive pantoprazole 40 mg tablet,delayed release RxNorm: 764373 1 Tablet(s) PO daily 04/16/2016 01/15/2017 Inactive Toprol XL 50 mg tablet,extended release RxNorm: 148417 1 Tablet(s) PO daily 02/28/2016 04/15/2016 Inactive terazosin 5 mg capsule RxNorm: 580077 1 Tablet(s) PO QPM 201504/18/2016 Inactive oxycodone 5 mg tablet RxNorm: 7753638 1 Tablet(s) PO UD 1/2 at 3pm, 1 pill at 9pm and may take up to 2 pills bid if needed. 01/03/2016 06/27/2016 Inactive Toprol XL 50 mg tablet,extended release RxNorm: 706836 1 Tablet(s) PO daily 11/15/2015 02/27/2016 Inactive terazosin 5 mg capsule RxNorm: 162393 1 Tablet(s) PO QPM 201501/01/2016 Inactive Lipitor 20 mg tablet RxNorm: 439246 1 Tablet(s) QHS TAKE 1 TABLET BY MOUTH ONCE DAILY AT BEDTIME. 06/01/2015 05/25/2016 Inactive Generic For:LIPITOR 20MG 2014 11:51:16 AM N O T I C E PRESCRIPTION PREVIOUSLY AUTHORIZED BY DOCTOR: NICHOLE ESPANA Kenalog 40 mg/mL suspension for injection RxNorm: 7910164 1 Milliliter(s) Inj 05/25/2015 05/25/2015 Inactive terazosin 5 mg capsule RxNorm: 975089 1 Tablet(s) PO QPM 201407/05/2015 Inactive Toprol XL 50 mg tablet,extended release RxNorm: 137078 1 Tablet(s) PO daily 05/04/2015 10/30/2015 Inactive terazosin 5 mg capsule RxNorm: 232624 1 Tablet(s) PO QPM 201405/03/2015 Inactive triamterene 37.5 mg-hydrochlorothiazide 25 mg capsule RxNorm: 226790 1 Capsule(s) PO daily 04/26/2015 05/26/2016 Inactive Voltaren 1 % topical gel RxNorm: 636585 4 Gram(s) TOP QID to knees 04/19/2015 07/17/2015 Inactive Lipitor 20 mg tablet RxNorm: 224788 Tablet(s) TAKE 1 TABLET BY MOUTH ONCE DAILY AT BEDTIME. 04/13/2015 05/31/2015 Inactive Generic For:LIPITOR 20MG 03/24/2015 11: 51:16 AM N O T I C E PRESCRIPTION PREVIOUSLY AUTHORIZED BY DOCTOR:NICHOLE ESPANA Lipitor 20 mg tablet RxNorm: 332323 TAKE 1 TABLET BY MOUTH ONCE DAILY AT BEDTIME. 03/24/2015 04/12/2015 Inactive Generic For:LIPITOR 20MG 03/24/2015 11:51:16 AM N O T I C E PRESCRIPTION PREVIOUSLY AUTHORIZED BY DOCTOR:NICHOLE ESPANA Lipitor 20 mg tablet RxNorm: 721964 TAKE 1 TABLET BY MOUTH ONCE DAILY AT BEDTIME. 03/24/2015 03/23/2015 Inactive Generic For:LIPITOR 20MG 03/24/2015 11:51:16 AM N O T I C E PRESCRIPTION PREVIOUSLY AUTHORIZED BY DOCTOR:NICHOLE ESPANA [phone] Lipitor 20 mg tablet RxNorm: 834352 1 Tablet(s) PO daily 201403/23/2015 Inactive Toprol XL 50 mg tablet,extended release RxNorm: 691461 1 Tablet(s) PO daily 03/08/2015 05/03/2015 Inactive Toprol XL 50 mg tablet,extended release RxNorm: 747070 1 Tablet(s) PO daily 03/08/2015 03/07/2015 Inactive Toprol XL 50 mg tablet,extended release RxNorm: 185756 1 Tablet(s) PO daily 03/07/2015 03/07/2015 Inactive triamterene 37.5 mg-hydrochlorothiazide 25 mg capsule RxNorm: 199928 1 Capsule(s) PO daily 01/26/2015 04/25/2015 Inactive Hytrin 5 mg tablet RxNorm: 345640 1 Tablet(s) PO QPM 201403/25/2015 Inactive triamterene 37.5 mg-hydrochlorothiazide 25 mg capsule RxNorm: 671229 1 Capsule(s) PO daily 01/25/2015 01/25/2015 Inactive Voltaren 1 % topical gel RxNorm: 851289 4 Gram(s) TOP QID to knees 11/23/2014 02/20/2015 Inactive aspirin 81 mg chewable tablet RxNorm: 986503 1 Tablet(s) PO daily 09/20/2014 12/02/2017 Inactive azithromycin 250 mg tablet RxNorm: 033043 2 Tablet(s) PO on day #1, then 1 pill on days #2-5 09/20/2014 04/02/2015 Inactive [SAVINGS FOR NON-COVERED DRUGS -- BIN: 219206, PCN: [id number], Group: XXXXX, ID# XXXXXXX, Questions: . 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 THIS IS NOT INSURANCE.] Vitamin D3 1,000 unit capsule RxNorm: 547948 1 Capsule(s) PO daily 09/20/2014 08/27/2016 Inactive fish oil-dha-epa 1,200 mg-144 mg-216 mg capsule RxNorm: 1 Capsule(s) PO daily 09/20/2014 08/27/2016 Inactive Lipitor 20 mg tablet RxNorm: 108527 1 Tablet(s) PO daily 201403/23/2015 Inactive naproxen sodium 220 mg tablet RxNorm: 345109 1 Tablet(s) PO BID as needed for pain 09/20/2014 01/02/2016 Inactive penicillin V potassium 500 mg tablet RxNorm: 945286 1 Tablet(s) PO daily - Prescribed by Dr. Adam No Start Date Active Fish Oil 360 mg-1,200 mg capsule RxNorm: 687977 1 Capsule(s) PO daily No Start Date Active Vitamin D3 2,000 unit tablet RxNorm: 243264 1 Tablet(s) PO daily No Start Date Active naproxen 250 mg tablet RxNorm: 930542 Tablet(s) PO BID as needed No Start Date Active Stool Softener 100 mg capsule RxNorm: 4564793 1 Capsule(s) PO BID No Start Date Active Probiotic oral RxNorm : 6205 oral No Start Date Active Vitamin C 1,000 mg tablet RxNorm: 661248 1 Tablet(s) PO daily No Start Date Active rifampin 150 mg capsule RxNorm: 171545 1 Capsule(s) PO daily No Start Date 08/26/2016 Inactive calcium carbonate 550 mg chewable tablet RxNorm: 329668 1 Tablet(s) PO QID as needed No Start Date 08/26/2016 Inactive clobetasol 0.05 % topical cream RxNorm: 550412 1 Application TOP daily as needed No Start Date 01/16/2017 Inactive Medication Administered Medication Codes Instructions Start Date Status ceftriaxone 500 mg solution for injection RxNorm: 8311680 1Milliliter 08/27/2016 No longer Active Kenalog 40 mg/mL suspension for injection RxNorm: 3440655 1Milliliter 05/25/2015 No longer Active Immunizations Vaccine [...] 31.1 pg 10/03/2017 Cbc With Differential Ord2 Taney% 10.4 % 10/03/2017 Cbc With Differential Ord2 [...] 1.44 K/ul 10/03/2017 Cbc With Differential Ord2 Taney ABS# 0.7 K/ul 10/03/2017 Cbc With Differential Ord2 Eos ABS# 0.3 K/ul 10/03/2017 Cbc With Differential Ord2 Baso ABS# 0.1 K/ul 10/03/2017 %Hba1C Inv210 % HbA1c 22594-3 6.6 % 10/03/2017 %Hba1C Haj439 Gluc Ave 143 mg/dL 10/03/2017 Uric Acid [...] Metabolic Ord15 CALCIUM 9.4 mg/dL 09/23/2017 %Hba1C Ocu798 % HbA1c 73636-6 6.6 % 05/21/2017 %Hba1C Gsq149 Gluc Ave 143 mg/dL 05/21/2017 Comp Metabolic Ajc268 NA 138 mEq/L 05/21/2017 Comp Metabolic Ujv859 K 3.8 mEq/L 05/21/2017 Comp Metabolic Nfa068 CL 99 mEq/L 05/21/2017 Comp Metabolic Ssn423 CO2 31.0 mEq/L 05/21/2017 Comp Metabolic Cgj792 ANION GAP 12 05/21/2017 Comp Metabolic Lno186 GLUCOSE 93 mg/dL 05/21/2017 Comp Metabolic Auo983 Creat 0.8 mg/dL 05/21/2017 Comp Metabolic Onx386 eGFR 102 ml/min/1.73m2 05/21/2017 Comp Metabolic Col182 BUN 13 mg/dL 05/21/2017 Comp Metabolic Cua034 B/C Ratio 16.7 Ratio 05/21/2017 Comp Metabolic Vxx152 CALCIUM 9.9 mg/dL 05/21/2017 Comp Metabolic Jin947 ALK PHOS 99 U/L 05/21/2017 Comp Metabolic Vcv463 AST(SGOT) 18 U/L 05/21/2017 Comp Metabolic Qzc462 ALT(SGPT) 29 U/L 05/21/2017 Comp Metabolic Qyz416 BILI T 0.7 mg/dL 05/21/2017 Comp Metabolic Vpx710 ALBUMIN 4.1 g/dL 05/21/2017 Comp Metabolic Yfh996 TPRO 6.6 g/dL 05/21/2017 Comp Metabolic Gff768 GLOB 2.6 g/dL 05/21/2017 Comp Metabolic Jpf926 A/G Ratio 1.6 Ratio 05/21/2017 Comp Metabolic Sur158 Osmo 275 mOsmo 05/21/2017 Tsh Ord6 hTSH II 1.34 uIU/mL 05/21/2017 %Hba1C Otd147 % HbA1c 22013-4 6.4 % 10/04/2015 %Hba1C Uwq387 Gluc Ave 137 mg/dL 10/04/2015 Comp Metabolic Vpk454 NA 139 mEq/L 10/04/2015 Comp Metabolic Xba293 K 3.8 mEq/L 10/04/2015 Comp Metabolic Jdb868 CL 104 mEq/L 10/04/2015 Comp Metabolic Rur674 CO2 32.0 mEq/L 10/04/2015 Comp Metabolic Hqm065 ANION GAP 7 10/04/2015 Comp Metabolic Bkf430 GLUCOSE 112 mg/dL 10/04/2015 Comp Metabolic Row095 Creat 0.8 mg/dL 10/04/2015 Comp Metabolic Axr849 eGFR 102 ml/min/1.73m2 10/04/2015 Comp Metabolic Umg943 BUN 16 mg/dL 10/04/2015 Comp Metabolic Xxg580 B/C Ratio 20.5 Ratio 10/04/2015 Comp Metabolic Gft909 CALCIUM 9.3 mg/dL 10/04/2015 Comp Metabolic Jwh640 ALK PHOS 87 U/L 10/04/2015 Comp Metabolic Jww509 AST(SGOT) 17 U/L 10/04/2015 Comp Metabolic Uai024 ALT(SGPT) 24 U/L 10/04/2015 Comp Metabolic Woq919 BILI T 0.6 mg/dL 10/04/2015 Comp Metabolic Bnu201 ALBUMIN 4.0 g/dL 10/04/2015 Comp Metabolic Yly463 TPRO 6.3 g/dL 10/04/2015 Comp Metabolic Lvb096 GLOB 2.3 g/dL 10/04/2015 Comp Metabolic Oft943 A/G Ratio 1.7 Ratio 10/04/2015 Comp Metabolic Epj230 Osmo 279 mOsmo 10/04/2015 Lipid Ord30 CHOL [...] 31.3 pg 10/04/2015 Cbc With Differential Ord2 Taney% 9.1 % 10/04/2015 Cbc With Differential Ord2 [...] 1.46 K/ul 10/04/2015 Cbc With Differential Ord2 Taney ABS# 0.6 K/ul 10/04/2015 Cbc With Differential Ord2 Eos ABS# 0.4 K/ul 10/04/2015 Cbc With Differential Ord2 Baso ABS# 0.1 K/ul 10/04/2015 %Hba1C Rde458 % HbA1c 93554-1 6.5 % 11/24/2014 %Hba1C Vjq475 Gluc Ave 140 mg/dL 11/24/2014 Lipid Ord30 CHOL 121 mg/dL 11/23/2014 Lipid Ord30 HDL 37.0 mg/dl 11/23/2014 Lipid Ord30 TRIG 93 mg/dL 11/23/2014 Lipid Ord30 LDL 65 mg/dL 11/23/2014 Lipid Ord30 C/HDL 3.3 Ratio 11/23/2014 Comp Metabolic Mce421 NA 135 mEq/L 11/23/2014 Comp Metabolic Nco445 K 3.7 mEq/L 11/23/2014 Comp Metabolic Kxz257 CL 101 mEq/L 11/23/2014 Comp Metabolic Yka166 CO2 28.0 mEq/L 11/23/2014 Comp Metabolic Oce104 ANION GAP 10 11/23/2014 Comp Metabolic Gkq895 GLUCOSE 104 mg/dL 11/23/2014 Comp Metabolic Imz858 Creat 0.8 mg/dL 11/23/2014 Comp Metabolic Bit667 eGFR 104 ml/min/1.73m2 11/23/2014 Comp Metabolic Lxv113 BUN 10 mg/dL 11/23/2014 Comp Metabolic Bqn736 B/C Ratio 13.0 Ratio 11/23/2014 Comp Metabolic Wvi416 CALCIUM 9.7 mg/dL 11/23/2014 Comp Metabolic Nos485 ALK PHOS 92 U/L 11/23/2014 Comp Metabolic Zlt129 AST(SGOT) 17 U/L 11/23/2014 Comp Metabolic Hin740 ALT(SGPT) 26 U/L 11/23/2014 Comp Metabolic Bko192 BILI T 1.1 mg/dL 11/23/2014 Comp Metabolic Tul000 ALBUMIN 4.1 g/dL 11/23/2014 Comp Metabolic Frl590 TPRO 6.3 g/dL 11/23/2014 Comp Metabolic Wvo976 GLOB 2.2 g/dL 11/23/2014 Comp Metabolic Kgu029 A/G Ratio 1.9 Ratio 11/23/2014 Comp Metabolic Dng343 Osmo 269 mOsmo 11/23/2014 Cbc With Differential [...] MG CPT-4: J0696 08/27/2016 DRAIN/INJECT JOINT/BURSA CPT-4: 09176 05/25/2015 TRIAMCINOLONE ACET INJ NOS CPT-4: J3301 05/25/2015 TRIAMCINOLONE ACET INJ NOS CPT-4: J3301 09/20/2014 ROCEPHIN, PER 250 MG CPT-4: J0696 09/20/2014 THER/PROPH/DIAG INJ SC/IM CPT-4: 34831 09/20/2014 Vital Signs Date Vital 02/18/2018 Blood Pressure 1: 128/72 Code : 8480-6 BMI: 31.5 Code : 64194-9 Heart Rate 1 : 68 bpm Height: 5'9" SpO2: 97% Weight: 213 lbs 10/06/2017 Blood Pressure 1: 134/70 Code : 8480-6 BMI: 31.5 Code : 85696-7 Heart Rate 1 : 65 bpm Height: 5'9" SpO2: 97% Weight: 213 lbs 06/23/2017 Blood Pressure 1: 136/72 Code : 8480-6 BMI: 31.5 Code : 05369-9 Heart Rate 1 : 64 bpm Height: 5'9" SpO2: 93% Weight: 213 lbs 05/21/2017 Blood Pressure 1: 118/80 Code : 8480-6 BMI: 32.2 Code : 11880-3 Heart Rate 1 : 76 bpm Height: 5'9" SpO2: 98% Weight: 218 lbs 01/16/2017 Blood Pressure 1: 132/78 Code : 8480-6 BMI: 31.0 Code : 84592-6 Heart Rate 1 : 63 bpm Height: 5'9" SpO2: 98% Weight: 210 lbs 08/27/2016 Blood Pressure 1: 128/72 Code : 8480-6 BMI: 30.4 Code : 19668-4 Heart Rate 1 : 69 bpm Height: 5'9" SpO2: 95% Temperature: 37.1 (C) / 98.7 (F) Weight: 206 lbs 05/30/2016 Blood Pressure 1: 136/64 Code : 8480-6 BMI: 30.7 Code : 25203-4 Heart Rate 1 : 77 bpm Height: 5'9" SpO2: 94% Weight: 208 lbs 04/19/2016 Blood Pressure 1: 108/68 Code : 8480-6 BMI: 28.8 Code : 70901-5 Height: 5'9" SpO2: 97% Weight: 195 lbs 01/03/2016 Blood Pressure 1: 120/70 Code : 8480-6 BMI: 31.0 Code : 32059-8 Heart Rate 1 : 81 bpm Height: 5'9" SpO2: 98% Weight: 210 lbs 10/03/2015 Blood Pressure 1: 128/68 Code : 8480-6 BMI: 31.7 Code : 09649-6 Heart Rate 1 : 60 bpm Height: 5'9" SpO2: 97% Weight: 215 lbs 05/25/2015 Blood Pressure 1: 138/84 Code : 8480-6 BMI: 32.6 Code : 46946-1 Heart Rate 1 : 60 bpm Height: 5'9" SpO2: 96% Weight: 221 lbs 04/03/2015 Blood Pressure 1: 142/74 Code : 8480-6 Blood Pressure 1: 136/70 Code: 8480-6 BMI: 32.5 Code: 41962-4 Heart Rate 1: 59 bpm Height: 5'9" SpO2: 94% Weight: 220 lbs 11/23/2014 Blood Pressure 1: 138/72 Code : 8480-6 BMI: 32.0 Code : 07603-4 Heart Rate 1 : 61 bpm Height: [...] data Encounters Encounter Performer Location Codes Date ([id number]) [id number] EST. PATIENT, LEVEL IV Diagnosis: Type 2 diabetes mellitus without complications[ICD10: E11.9] Diagnosis: Essential (primary) hypertension[ICD10: I10] Diagnosis: Mixed hyperlipidemia[ICD10: E78.2] Andreina Hoffmann MD, [facility] CPT-4: 12374 02/18/2018 ([id number]) 29485 EST. PATIENT, LEVEL IV Diagnosis: Essential (primary) hypertension[ICD10: I10] Diagnosis: Type 2 diabetes mellitus without complications[ICD10: E11.9] Diagnosis: Mixed hyperlipidemia[ICD10: E78.2] Andreina Hoffmann MD, [facility] CPT-4: 27831 10/06/2017 ([id number]) 54539 EST. PATIENT, LEVEL III Diagnosis: Rash and other nonspecific skin eruption[ICD10: R21] Andreina Hoffmann MD [facility] CPT-4: 01727 06/23/2017 [id number]) 18455 EST. PATIENT, LEVEL IV Diagnosis: Essential (primary) hypertension[ICD10: I10] Diagnosis: Other abnormal glucose[ICD10: R73.09] Diagnosis: Rash and other nonspecific skin eruption[ICD10: R21] Diagnosis: Pain in right knee[ICD10: M25.561] Diagnosis: Impaired fasting glucose[ICD10: R73.01] Andreina Hoffmann MD, [facility] CPT-4: 70646 05/21/2017 ([id number]) 46114 EST. PATIENT, LEVEL IV Diagnosis: Essential (primary) hypertension[ICD10: I10] Diagnosis: Pain in right knee[ICD10: M25.561] Diagnosis: Rash and other nonspecific skin eruption[ICD10: R21] Diagnosis: Other abnormal glucose[ICD10: R73.09] Diagnosis: Mixed hyperlipidemia[ICD10: E78.2] Andreina Hoffmann MD, [facility] CPT-4: 42008 01/16/2017 ([id number]) 47015 EST. PATIENT, LEVEL IV Diagnosis: Essential (primary) hypertension[ICD10: I10] Diagnosis: Acute recurrent maxillary sinusitis[ICD10: J01.01] Andreina Hoffmann MD, [facility] CPT-4: 48268 08/27/2016 ([id number]) 15337 EST. PATIENT, LEVEL IV Diagnosis: Essential (primary) hypertension[ICD10: I10] Diagnosis: Pain in right knee[ICD10: M25.561] Diagnosis: Pain in left knee[ICD10: M25.562] Andreina Hoffmann MD, [facility] CPT-4: 65013 05/30/2016 ([id number]) 73570 EST. PATIENT, LEVEL III Diagnosis: Essential (primary) hypertension[ICD10: I10] Diagnosis: Pain in right knee[ICD10: M25.561] Gisel Hoffmann MD, [facility] CPT-4: 95149 04/19/2016 ([id number]) 19454 EST. PATIENT, LEVEL IV Diagnosis: Essential (primary) hypertension[ICD10: I10] Diagnosis: Mixed hyperlipidemia[ICD10: E78.2] Diagnosis: Pain in right knee[ICD10: M25.561] Andreina Hoffmann MD, [facility] CPT-4: 71816 01/03/2016 ([id number]) 25980 EST. PATIENT, LEVEL IV Diagnosis: Essential (primary) hypertension[ICD10: I10] Diagnosis: Mixed hyperlipidemia[ICD10: E78.2] Diagnosis: Hyperglycemia, unspecified[ICD10: R73.9] Andreina Hoffmann MD, [facility] CPT-4: 69923 10/03/2015 24911 EST. PATIENT, LEVEL IV Diagnosis: Pain in right knee[ICD10: M25.561] Tiffany Hoffmann MD, [facility] CPT-4: 46110 05/25/2015 ([id number]) 26898 EST. PATIENT, LEVEL III Diagnosis: Essential (primary) hypertension[ICD10: I10] Diagnosis: Changes in skin texture[ICD10: R23.4] Andreina Hoffmann MD, [facility] CPT-4: 52965 04/03/2015 ([id number]) 00757 EST. PATIENT, LEVEL IV Diagnosis: ESSENTIAL HYPERTENSION[ICD9: 401.9] Diagnosis: DIABETES TYPE II[ICD9: 250.00] Diagnosis: HYPERLIPIDEMIA[ICD9: 272.4] Diagnosis: OSTEOARTH NOS-UNSPEC[ICD9: 715.90] [facility] CPT-4: 40462 11/23/2014 ([id number]) OFFICE VISIT, NEW - LEVEL 3 Diagnosis: ACUTE BRONCHITIS[ICD9: 466.0] Diagnosis: Dyspnea[ICD9: 786.09] Diagnosis: Sinusitis[ICD9: 473.9] Diagnosis: ACUTE MAXILLARY SINUSITIS[ICD9: 461.0] Andreina Hoffmann MD, [facility] CPT-4: 79658 09/20/2014 Plan of Care Planned Activity Notes [...] medications. 02/18/2018 [phone] ([facility] Moderate 02/18/2018 Patient Education: Patient Medication Summary Completed 02/18/2018 Patient Education: Diabetes Completed 02/18/2018 [phone] ([facility] min) Moderate 02/09/2018 Visit Plan: Hypertension [...] medications. 10/06/2017 Appointment: Andreina Hoffmann WPtel: [phone] [facility] (15 min) Moderate 10/06/2017 Patient Education: [...] improved. 06/23/2017 Appointment: Andreina Hoffmann WPtel: [phone] [facility] [place] (15 min) Moderate 06/23/2017 Patient Education: Patient Medication Summary Completed 06/23/2017 [phone] [place] (15 min) Moderate 06/10/2017 Visit Plan: [...] today. 05/21/2017 Appointment: Andreina Hoffmann WPtel: [phone] [facility] (15 min) Moderate 05/21/2017 Patient Education: Patient [...] today. 01/16/2017 App[phone] [facility] [place] (15 min) Moderate 01/16/2017 Patient Education: Patient Medication Summary Completed 01/16/2017 [phone] [facility] [place] (15 min) Moderate 12/30/2016 Visit Plan: Hypertension [...] avila - 08/27/2016 Appointment: Andreina Hoffmann WPtel: [address] [place], [place] [phone] (15 min) Moderate 08/27/2016 Patient Education: Patient [...] oxycodone 05/30/2016 Appointment: Andreina Hoffmann WPtel: [facility] (15 min) Moderate 05/30/2016 Patient Education: Patient Medication Summary Completed 05/30/2016 Patient Education: Obesity Completed 05/30/2016 Appointment: Gisel Titus WPtel: [phone] (30 min) Complex 05/24/2016 Visit Plan: Hypertension [...] Dr Galdamez-on IV abx-sees infection control at [facility] 04/19/2016 Appointment: Gisel Titus WPtel: [phone] (30 min) Complex 04/19/2016 Patient Education: Patient Medication Summary Completed 04/19/2016 Patient Education: Hypertension Completed 04/19/2016 Appointment: Andreina Hoffmann WPtel: [phone] (15 min) Moderate 04/03/2016 Visit Plan: Hypertension [...] Medication Summary Completed 05/25/2015 Referral: Demetrius Cedeno WPtel:[phone] Referral Completed 04/19/2015 Visit Plan: Hypertension - [...] local surgeons. 04/03/2015 Appointment: [phone] ([facility] min) Moderate 04/03/2015 Patient Education: Patient Medication Summary Completed 04/03/2015 Patient Education: Hypertension Completed 04/03/2015 Care Plan: Referral Order SNOMED-CT : [id number] Ordered 04/03/2015 Visit Plan: Hypertension - well [...] fasting labs. 11/23/2014 Appointment: Andreina Hoffmann WPtel: [id number] [place] [facility] New Patient 11/23/2014 Patient Education: [...] if symptoms acutely worsen. rocephin shot - [id number] exp 12/03/14 1ML 500mg apotec kenalog [id number] exp may 2016bristol fagan squibb 09/20/2014 Patient Education: Patient Medication Summary Completed 09/20/2014 Referral: Demetrius Cedeno WPtel:[phone] Referral Appointment Requested Instructions Comment Dr. Cedeno [...] Dr Galdamez-on IV abx-sees infection control at [facility] . Hypertension - well controlled - continue [...] if symptoms acutely worsen. rocephin shot - [id number] exp 12/03/14 1ML 500mg apotec kenalog [id number] exp may 2016brist fagan squibb coconut oil start taking a probiotic - like culturelle or robbins [employer] [facility] - this will help to decrease [...]
--- OUTSIDE RECORDS SUMMARY | 2018-08-26 06:34 | XMS REPORT | CCD ---
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 Name Role Phone PP Unavailable CCM Unavailable Summary Purpose Interface Exchange Insurance Providers Payer name Policy type / Coverage type Covered alliance party ID Effective Begin Date Effective End Date Blue Cross Blue Shield [facility] Blue Cross/Blue Shield [id number] Unknown Unknown WPS Medicare Part B Blue Cross/Blue Shield [id number] Unknown Unknown Family history Father Diagnosis Age [...] 6 adopted 11/23/[address]: 0614158 Former smoker 1970- quit 11/23/2014 Alcohol history Unknown occasionally drinks alcohol 11/23/2014 Living arrangements Unknown House 09/20/2014 Employment Unknown 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 09/20/2014 Allergies, Adverse Reactions, Alerts [...] Fill Instructions Lipitor 20 mg tablet RxNorm: 983244 TAKE ONE TABLET BY MOUTH DAILY AT BEDTIME 05/18/2018 05/12/2019 Active Generic For:LIPITOR 20MG 05/18/2018 8:43:47 AM triamterene 37.5 mg-hydrochlorothiazide 25 mg capsule RxNorm: 014181 TAKE 1 CAPSULE BY MOUTH DAILY 05/18/20182019 Active Generic For:DYAZIDE 37.5-25 05/18/2018 8:43:43 AM betamethasone valerate 0.1 % topical ointment RxNorm: 785329 APPLY TOPICALLY TO SKIN LESIONS/RASH ON LEGS, ARMS AND BACK THREE TIMES DAILY 05/23/2018 Active 03/25/2018 10:44:47 AM Toprol XL 25 mg tablet,extended release RxNorm: 119160 TAKE 1 TABLET BY MOUTH EVERY DAY 02/16/2018 07/15/2018 Active Generic For:TOPROL XL 25MG 02/16/2018 9:19: 34 AM terazosin 2 mg capsule RxNorm: 902762 TAKE 1 CAPSULE BY MOUTH DAILY 02/16/2018 08/14/2018 Active 02/16/2018 9:02:27 AM terazosin 2 mg capsule RxNorm: 612044 TAKE 1 CAPSULE BY MOUTH DAILY 02/16/2018 02/15/2018 Inactive betamethasone valerate 0.1 % topical ointment RxNorm: 034671 APPLY TOPICALLY TO SKIN LESIONS/RASH ON LEGS, ARMS AND BACK THREE TIMES DAILY 02/09/2018 Inactive 12/12/2017 11:42:38 AM Toprol XL 25 mg tablet,extended release RxNorm: 387726 TAKE 1 TABLET BY MOUTH EVERY DAY 11/18/2017 02/15/2018 Inactive Generic For:TOPROL XL 25MG 11/18/2017 9: 12:07 AM oxycodone 5 mg tablet RxNorm: 4575420 1 Tablet(s) PO BID 201711/04/2017 Inactive betamethasone valerate 0.1 % topical ointment RxNorm: 556124 APPLY TOPICALLY TO SKIN LESIONS/RASH ON LEGS, ARMS AND BACK THREE TIMES DAILY 10/31/2017 Inactive 09/01/2017 4:21:36 PM terazosin 2 mg capsule RxNorm: 301758 TAKE 1 CAPSULE BY MOUTH DAILY 08/20/2017 02/15/2018 Inactive 08/20/2017 8:54:09 AM Toprol XL 25 mg tablet,extended release RxNorm: 945270 TAKE 1 TABLET BY MOUTH EVERY DAY 08/20/2017 11/17/2017 Inactive Generic For:TOPROL XL 25MG 08/20/2017 8: 58:18 AM betamethasone valerate 0.1 % topical ointment RxNorm: 034436 1 Application TOP TID apply to skin lesions/rash on legs, arms, back 201708/25/2017 Inactive Lipitor 20 mg tablet RxNorm: 275509 TAKE ONE TABLET BY MOUTH DAILY AT BEDTIME 05/22/2017 05/16/2018 Inactive Generic For:LIPITOR 20MG 05/22/2017 9:16:26 AM triamterene 37.5 mg-hydrochlorothiazide 25 mg capsule RxNorm: 401167 TAKE 1 CAPSULE BY MOUTH DAILY 05/22/20172018 Inactive Generic For:DYAZIDE 37.5-25 05/22/2017 9:16:22 AM betamethasone valerate 0.1 % topical ointment RxNorm: 988292 1 Application TOP TID apply to skin lesions/rash on legs, arms, back 201706/19/2017 Inactive terazosin 2 mg capsule RxNorm: 695422 TAKE 1 CAPSULE BY MOUTH DAILY 02/19/2017 08/17/2017 Inactive 02/19/2017 11:33:02 AM clobetasol 0.05 % topical cream RxNorm: 412207 1 Application TOP daily as needed 01/17/2017 No Stop Date Active mupirocin 2 % topical cream RxNorm: 235346 1 Application TOP BID 01/16/2017 02/14/2017 Inactive terazosin 2 mg capsule RxNorm: 097477 1 Capsule(s) PO daily 02/18/2017 Inactive oxycodone 5 mg tablet RxNorm: 8643551 1 Tablet(s) PO BID 201610/10/2016 Inactive ceftriaxone 500 mg solution for injection RxNorm: 3367237 1 Milliliter(s) Inj 08/27/2016 08/27/2016 Inactive azithromycin 250 mg tablet RxNorm: 966616 1 Tablet(s) PO UD take two pills on day #1, then one pill daily x 4 days 08/27/2016 01/15/2017 Inactive Toprol XL 25 mg tablet,extended release RxNorm: 242067 1 Tablet(s) PO daily 08/26/2016 12/23/2016 Inactive oxycodone 5 mg tablet RxNorm: 3714187 1 Tablet(s) PO BID 201607/27/2016 Inactive Lipitor 20 mg tablet RxNorm: 883199 1 Tablet(s) QHS TAKE 1 TABLET BY MOUTH ONCE DAILY AT BEDTIME. 05/27/2016 05/21/2017 Inactive Generic For:LIPITOR 20MG 2014 11:51:16 AM N O T I C E PRESCRIPTION PREVIOUSLY AUTHORIZED BY DOCTOR: NICHOLE ESPANA triamterene 37.5 mg-hydrochlorothiazide 25 mg capsule RxNorm: 365628 1 Capsule(s) PO daily 05/27/2016 05/21/2017 Inactive terazosin 2 mg capsule RxNorm: 926540 1 Capsule(s) PO daily 08/19/2016 Inactive terazosin 2 mg capsule RxNorm: 952503 1 Capsule(s) PO daily 04/21/2016 Inactive terazosin 5 mg capsule RxNorm: 213444 1/2 Tablet(s) PO QPM 04/21/2016 Inactive Toprol XL 25 mg tablet,extended release RxNorm: 359340 1 Tablet(s) PO daily 04/16/2016 04/15/2016 Inactive Toprol XL 25 mg tablet,extended release RxNorm: 876338 1 Tablet(s) PO daily 04/16/2016 08/13/2016 Inactive pantoprazole 40 mg tablet,delayed release RxNorm: 611961 1 Tablet(s) PO daily 04/16/2016 04/15/2016 Inactive pantoprazole 40 mg tablet,delayed release RxNorm: 813609 1 Tablet(s) PO daily 04/16/2016 01/15/2017 Inactive Toprol XL 50 mg tablet,extended release RxNorm: 546399 1 Tablet(s) PO daily 02/28/2016 04/15/2016 Inactive terazosin 5 mg capsule RxNorm: 810366 1 Tablet(s) PO QPM 201504/18/2016 Inactive oxycodone 5 mg tablet RxNorm: 1027714 1 Tablet(s) PO UD 1/2 at 3pm, 1 pill at 9pm and may take up to 2 pills bid if needed. 01/03/2016 06/27/2016 Inactive Toprol XL 50 mg tablet,extended release RxNorm: 525332 1 Tablet(s) PO daily 11/15/2015 02/27/2016 Inactive terazosin 5 mg capsule RxNorm: 067028 1 Tablet(s) PO QPM 201501/01/2016 Inactive Lipitor 20 mg tablet RxNorm: 637629 1 Tablet(s) QHS TAKE 1 TABLET BY MOUTH ONCE DAILY AT BEDTIME. 06/01/2015 05/25/2016 Inactive Generic For:LIPITOR 20MG 2014 11:51:16 AM N O T I C E PRESCRIPTION PREVIOUSLY AUTHORIZED BY DOCTOR: NICHOLE ESPANA Kenalog 40 mg/mL suspension for injection RxNorm: 6118587 1 Milliliter(s) Inj 05/25/2015 05/25/2015 Inactive terazosin 5 mg capsule RxNorm: 205801 1 Tablet(s) PO QPM 201407/05/2015 Inactive Toprol XL 50 mg tablet,extended release RxNorm: 083697 1 Tablet(s) PO daily 05/04/2015 10/30/2015 Inactive terazosin 5 mg capsule RxNorm: 670632 1 Tablet(s) PO QPM 201405/03/2015 Inactive triamterene 37.5 mg-hydrochlorothiazide 25 mg capsule RxNorm: 564959 1 Capsule(s) PO daily 04/26/2015 05/26/2016 Inactive Voltaren 1 % topical gel RxNorm: 574881 4 Gram(s) TOP QID to knees 04/19/2015 07/17/2015 Inactive Lipitor 20 mg tablet RxNorm: 942510 Tablet(s) TAKE 1 TABLET BY MOUTH ONCE DAILY AT BEDTIME. 04/13/2015 05/31/2015 Inactive Generic For:LIPITOR 20MG 03/24/2015 11: 51:16 AM N O T I C E PRESCRIPTION PREVIOUSLY AUTHORIZED BY DOCTOR:NICHOLE ESPANA Lipitor 20 mg tablet RxNorm: 353052 TAKE 1 TABLET BY MOUTH ONCE DAILY AT BEDTIME. 03/24/2015 04/12/2015 Inactive Generic For:LIPITOR 20MG 03/24/2015 11:51:16 AM N O T I C E PRESCRIPTION PREVIOUSLY AUTHORIZED BY DOCTOR:NICHOLE ESPANA [phone] Lipitor 20 mg tablet RxNorm: 173557 TAKE 1 TABLET BY MOUTH ONCE DAILY AT BEDTIME. 03/24/2015 03/23/2015 Inactive Generic For:LIPITOR 20MG 03/24/2015 11:51:16 AM N O T I C E PRESCRIPTION PREVIOUSLY AUTHORIZED BY DOCTOR:NICHOLE ESPANA [phone] Lipitor 20 mg tablet RxNorm: 565233 1 Tablet(s) PO daily 201403/23/2015 Inactive Toprol XL 50 mg tablet,extended release RxNorm: 597915 1 Tablet(s) PO daily 03/08/2015 05/03/2015 Inactive Toprol XL 50 mg tablet,extended release RxNorm: 573906 1 Tablet(s) PO daily 03/08/2015 03/07/2015 Inactive Toprol XL 50 mg tablet,extended release RxNorm: 742267 1 Tablet(s) PO daily 03/07/2015 03/07/2015 Inactive triamterene 37.5 mg-hydrochlorothiazide 25 mg capsule RxNorm: 109615 1 Capsule(s) PO daily 01/26/2015 04/25/2015 Inactive Hytrin 5 mg tablet RxNorm: 407026 1 Tablet(s) PO QPM 201403/25/2015 Inactive triamterene 37.5 mg-hydrochlorothiazide 25 mg capsule RxNorm: 391633 1 Capsule(s) PO daily 01/25/2015 01/25/2015 Inactive Voltaren 1 % topical gel RxNorm: 209441 4 Gram(s) TOP QID to knees 11/23/2014 02/20/2015 Inactive aspirin 81 mg chewable tablet RxNorm: 715319 1 Tablet(s) PO daily 09/20/2014 12/02/2017 Inactive azithromycin 250 mg tablet RxNorm: 932630 2 Tablet(s) PO on day #1, then 1 pill on days #2-5 09/20/2014 04/02/2015 Inactive [SAVINGS FOR NON-COVERED DRUGS -- BIN: [id number], PCN: [id number], Group: XXXXX, ID# XXXXXXX, Questions: . 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 THIS IS NOT INSURANCE.] Vitamin D3 1,000 unit capsule RxNorm: 467684 1 Capsule(s) PO daily 09/20/2014 08/27/2016 Inactive fish oil-dha-epa 1,200 mg-144 mg-216 mg capsule RxNorm: 1 Capsule(s) PO daily 09/20/2014 08/27/2016 Inactive Lipitor 20 mg tablet RxNorm: 367145 1 Tablet(s) PO daily 201403/23/2015 Inactive naproxen sodium 220 mg tablet RxNorm: 728918 1 Tablet(s) PO BID as needed for pain 09/20/2014 01/02/2016 Inactive penicillin V potassium 500 mg tablet RxNorm: 383466 1 Tablet(s) PO daily - Prescribed by Dr. Adam No Start Date Active Fish Oil 360 mg-1,200 mg capsule RxNorm: 114300 1 Capsule(s) PO daily No Start Date Active Vitamin D3 2,000 unit tablet RxNorm: 845495 1 Tablet(s) PO daily No Start Date Active naproxen 250 mg tablet RxNorm: 445897 Tablet(s) PO BID as needed No Start Date Active Stool Softener 100 mg capsule RxNorm: 4917897 1 Capsule(s) PO BID No Start Date Active Probiotic oral RxNorm : 6205 oral No Start Date Active Vitamin C 1,000 mg tablet RxNorm: 453592 1 Tablet(s) PO daily No Start Date Active rifampin 150 mg capsule RxNorm: 249492 1 Capsule(s) PO daily No Start Date 08/26/2016 Inactive calcium carbonate 550 mg chewable tablet RxNorm: 204729 1 Tablet(s) PO QID as needed No Start Date 08/26/2016 Inactive clobetasol 0.05 % topical cream RxNorm: 909416 1 Application TOP daily as needed No Start Date 01/16/2017 Inactive Medication Administered Medication Codes Instructions Start Date Status ceftriaxone 500 mg solution for injection RxNorm: 7975558 1Milliliter 08/27/2016 No longer Active Kenalog 40 mg/mL suspension for injection RxNorm: 6440644 1Milliliter 05/25/2015 No longer Active Immunizations Vaccine [...] 31.1 pg 10/03/2017 Cbc With Differential Ord2 Cassia% 10.4 % 10/03/2017 Cbc With Differential Ord2 [...] 1.44 K/ul 10/03/2017 Cbc With Differential Ord2 Cassia ABS# 0.7 K/ul 10/03/2017 Cbc With Differential Ord2 Eos ABS# 0.3 K/ul 10/03/2017 Cbc With Differential Ord2 Baso ABS# 0.1 K/ul 10/03/2017 %Hba1C Qla271 % HbA1c 95671-5 6.6 % 10/03/2017 %Hba1C Yfs102 Gluc Ave 143 mg/dL 10/03/2017 Uric Acid [...] Metabolic Ord15 CALCIUM 9.4 mg/dL 09/23/2017 %Hba1C Azg409 % HbA1c 14957-5 6.6 % 05/21/2017 %Hba1C Poe984 Gluc Ave 143 mg/dL 05/21/2017 Comp Metabolic Jzt623 NA 138 mEq/L 05/21/2017 Comp Metabolic Jmj758 K 3.8 mEq/L 05/21/2017 Comp Metabolic Rvp951 CL 99 mEq/L 05/21/2017 Comp Metabolic Rqy088 CO2 31.0 mEq/L 05/21/2017 Comp Metabolic Acx221 ANION GAP 12 05/21/2017 Comp Metabolic Yff110 GLUCOSE 93 mg/dL 05/21/2017 Comp Metabolic Mqt462 Creat 0.8 mg/dL 05/21/2017 Comp Metabolic Mos165 eGFR 102 ml/min/1.73m2 05/21/2017 Comp Metabolic Osw417 BUN 13 mg/dL 05/21/2017 Comp Metabolic Cge060 B/C Ratio 16.7 Ratio 05/21/2017 Comp Metabolic Igb896 CALCIUM 9.9 mg/dL 05/21/2017 Comp Metabolic Fml277 ALK PHOS 99 U/L 05/21/2017 Comp Metabolic Xjd768 AST(SGOT) 18 U/L 05/21/2017 Comp Metabolic Ugp699 ALT(SGPT) 29 U/L 05/21/2017 Comp Metabolic Qnh718 BILI T 0.7 mg/dL 05/21/2017 Comp Metabolic Tvw369 ALBUMIN 4.1 g/dL 05/21/2017 Comp Metabolic Sue879 TPRO 6.6 g/dL 05/21/2017 Comp Metabolic Nmg847 GLOB 2.6 g/dL 05/21/2017 Comp Metabolic Azq911 A/G Ratio 1.6 Ratio 05/21/2017 Comp Metabolic Yqd968 Osmo 275 mOsmo 05/21/2017 Tsh Ord6 hTSH II 1.34 uIU/mL 05/21/2017 %Hba1C Eex526 % HbA1c 40102-2 6.4 % 10/04/2015 %Hba1C Xiu795 Gluc Ave 137 mg/dL 10/04/2015 Comp Metabolic Odb258 NA 139 mEq/L 10/04/2015 Comp Metabolic Suc599 K 3.8 mEq/L 10/04/2015 Comp Metabolic Qio738 CL 104 mEq/L 10/04/2015 Comp Metabolic Vmo676 CO2 32.0 mEq/L 10/04/2015 Comp Metabolic Uzg277 ANION GAP 7 10/04/2015 Comp Metabolic Rnx386 GLUCOSE 112 mg/dL 10/04/2015 Comp Metabolic Znr178 Creat 0.8 mg/dL 10/04/2015 Comp Metabolic Khq230 eGFR 102 ml/min/1.73m2 10/04/2015 Comp Metabolic Lum889 BUN 16 mg/dL 10/04/2015 Comp Metabolic Idy494 B/C Ratio 20.5 Ratio 10/04/2015 Comp Metabolic Rgt152 CALCIUM 9.3 mg/dL 10/04/2015 Comp Metabolic Yjd060 ALK PHOS 87 U/L 10/04/2015 Comp Metabolic Twe742 AST(SGOT) 17 U/L 10/04/2015 Comp Metabolic Ztp394 ALT(SGPT) 24 U/L 10/04/2015 Comp Metabolic Oyj474 BILI T 0.6 mg/dL 10/04/2015 Comp Metabolic Eor821 ALBUMIN 4.0 g/dL 10/04/2015 Comp Metabolic Zev204 TPRO 6.3 g/dL 10/04/2015 Comp Metabolic Pus553 GLOB 2.3 g/dL 10/04/2015 Comp Metabolic Btx175 A/G Ratio 1.7 Ratio 10/04/2015 Comp Metabolic Lux360 Osmo 279 mOsmo 10/04/2015 Lipid Ord30 CHOL [...] 31.3 pg 10/04/2015 Cbc With Differential Ord2 Cassia% 9.1 % 10/04/2015 Cbc With Differential Ord2 [...] 1.46 K/ul 10/04/2015 Cbc With Differential Ord2 Cassia ABS# 0.6 K/ul 10/04/2015 Cbc With Differential Ord2 Eos ABS# 0.4 K/ul 10/04/2015 Cbc With Differential Ord2 Baso ABS# 0.1 K/ul 10/04/2015 %Hba1C Unp709 % HbA1c 48958-4 6.5 % 11/24/2014 %Hba1C Dtd983 Gluc Ave 140 mg/dL 11/24/2014 Lipid Ord30 CHOL 121 mg/dL 11/23/2014 Lipid Ord30 HDL 37.0 mg/dl 11/23/2014 Lipid Ord30 TRIG 93 mg/dL 11/23/2014 Lipid Ord30 LDL 65 mg/dL 11/23/2014 Lipid Ord30 C/HDL 3.3 Ratio 11/23/2014 Comp Metabolic Opk474 NA 135 mEq/L 11/23/2014 Comp Metabolic Lvw554 K 3.7 mEq/L 11/23/2014 Comp Metabolic Svm857 CL 101 mEq/L 11/23/2014 Comp Metabolic Pbf496 CO2 28.0 mEq/L 11/23/2014 Comp Metabolic Cqy977 ANION GAP 10 11/23/2014 Comp Metabolic Xkr598 GLUCOSE 104 mg/dL 11/23/2014 Comp Metabolic Oyk185 Creat 0.8 mg/dL 11/23/2014 Comp Metabolic Srp361 eGFR 104 ml/min/1.73m2 11/23/2014 Comp Metabolic Krq743 BUN 10 mg/dL 11/23/2014 Comp Metabolic Plb744 B/C Ratio 13.0 Ratio 11/23/2014 Comp Metabolic Pvg369 CALCIUM 9.7 mg/dL 11/23/2014 Comp Metabolic Ddh063 ALK PHOS 92 U/L 11/23/2014 Comp Metabolic Snm828 AST(SGOT) 17 U/L 11/23/2014 Comp Metabolic Udf007 ALT(SGPT) 26 U/L 11/23/2014 Comp Metabolic Wtt704 BILI T 1.1 mg/dL 11/23/2014 Comp Metabolic Byz406 ALBUMIN 4.1 g/dL 11/23/2014 Comp Metabolic Hsc007 TPRO 6.3 g/dL 11/23/2014 Comp Metabolic Ott439 GLOB 2.2 g/dL 11/23/2014 Comp Metabolic Adl968 A/G Ratio 1.9 Ratio 11/23/2014 Comp Metabolic Dha540 Osmo 269 mOsmo 11/23/2014 Cbc With Differential [...] MG CPT-4: J0696 08/27/2016 DRAIN/INJECT JOINT/BURSA CPT-4: 35530 05/25/2015 TRIAMCINOLONE ACET INJ NOS CPT-4: J3301 05/25/2015 TRIAMCINOLONE ACET INJ NOS CPT-4: J3301 09/20/2014 ROCEPHIN, PER 250 MG CPT-4: J0696 09/20/2014 THER/PROPH/DIAG INJ SC/IM CPT-4: 36032 09/20/2014 Vital Signs Date Vital 02/18/2018 Blood Pressure 1: 128/72 Code : 8480-6 BMI: 31.5 Code : 11785-1 Heart Rate 1 : 68 bpm Height: 5'9" SpO2: 97% Weight: 213 lbs 10/06/2017 Blood Pressure 1: 134/70 Code : 8480-6 BMI: 31.5 Code : 14802-0 Heart Rate 1 : 65 bpm Height: 5'9" SpO2: 97% Weight: 213 lbs 06/23/2017 Blood Pressure 1: 136/72 Code : 8480-6 BMI: 31.5 Code : 05905-2 Heart Rate 1 : 64 bpm Height: 5'9" SpO2: 93% Weight: 213 lbs 05/21/2017 Blood Pressure 1: 118/80 Code : 8480-6 BMI: 32.2 Code : 35171-0 Heart Rate 1 : 76 bpm Height: 5'9" SpO2: 98% Weight: 218 lbs 01/16/2017 Blood Pressure 1: 132/78 Code : 8480-6 BMI: 31.0 Code : 40821-7 Heart Rate 1 : 63 bpm Height: 5'9" SpO2: 98% Weight: 210 lbs 08/27/2016 Blood Pressure 1: 128/72 Code : 8480-6 BMI: 30.4 Code : 27918-6 Heart Rate 1 : 69 bpm Height: 5'9" SpO2: 95% Temperature: 37.1 (C) / 98.7 (F) Weight: 206 lbs 05/30/2016 Blood Pressure 1: 136/64 Code : 8480-6 BMI: 30.7 Code : 86979-2 Heart Rate 1 : 77 bpm Height: 5'9" SpO2: 94% Weight: 208 lbs 04/19/2016 Blood Pressure 1: 108/68 Code : 8480-6 BMI: 28.8 Code : 71266-6 Height: 5'9" SpO2: 97% Weight: 195 lbs 01/03/2016 Blood Pressure 1: 120/70 Code : 8480-6 BMI: 31.0 Code : 11960-8 Heart Rate 1 : 81 bpm Height: 5'9" SpO2: 98% Weight: 210 lbs 10/03/2015 Blood Pressure 1: 128/68 Code : 8480-6 BMI: 31.7 Code : 60791-4 Heart Rate 1 : 60 bpm Height: 5'9" SpO2: 97% Weight: 215 lbs 05/25/2015 Blood Pressure 1: 138/84 Code : 8480-6 BMI: 32.6 Code : 24210-2 Heart Rate 1 : 60 bpm Height: 5'9" SpO2: 96% Weight: 221 lbs 04/03/2015 Blood Pressure 1: 142/74 Code : 8480-6 Blood Pressure 1: 136/70 Code: 8480-6 BMI: 32.5 Code: 51360-4 Heart Rate 1: 59 bpm Height: 5'9" SpO2: 94% Weight: 220 lbs 11/23/2014 Blood Pressure 1: 138/72 Code : 8480-6 BMI: 32.0 Code : 84318-3 Heart Rate 1 : 61 bpm Height: [...] data Encounters Encounter Performer Location Codes Date ([id number]) 23140 EST. PATIENT, LEVEL IV Diagnosis: Type 2 diabetes mellitus without complications[ICD10: E11.9] Diagnosis: Essential (primary) hypertension[ICD10: I10] Diagnosis: Mixed hyperlipidemia[ICD10: E78.2] Andreina Hoffmann MD, [facility] CPT-4: 89493 02/18/2018 ([id number]) 97964 EST. PATIENT, LEVEL IV Diagnosis: Essential (primary) hypertension[ICD10: I10] Diagnosis: Type 2 diabetes mellitus without complications[ICD10: E11.9] Diagnosis: Mixed hyperlipidemia[ICD10: E78.2] Andreina Hoffmann MD, [facility] CPT-4: 18081 10/06/2017 ([id number]) 77734 EST. PATIENT, LEVEL III Diagnosis: Rash and other nonspecific skin eruption[ICD10: R21] Andreina Hoffmann MD [facility] CPT-4: 08192 06/23/2017 [id number]) 21613 EST. PATIENT, LEVEL IV Diagnosis: Essential (primary) hypertension[ICD10: I10] Diagnosis: Other abnormal glucose[ICD10: R73.09] Diagnosis: Rash and other nonspecific skin eruption[ICD10: R21] Diagnosis: Pain in right knee[ICD10: M25.561] Diagnosis: Impaired fasting glucose[ICD10: R73.01] Andreina Hoffmann MD, [facility] CPT-4: 60042 05/21/2017 ([id number]) 00307 EST. PATIENT, LEVEL IV Diagnosis: Essential (primary) hypertension[ICD10: I10] Diagnosis: Pain in right knee[ICD10: M25.561] Diagnosis: Rash and other nonspecific skin eruption[ICD10: R21] Diagnosis: Other abnormal glucose[ICD10: R73.09] Diagnosis: Mixed hyperlipidemia[ICD10: E78.2] Andreina Hoffmann MD, [facility] CPT-4: 67031 01/16/2017 ([id number]) 75084 EST. PATIENT, LEVEL IV Diagnosis: Essential (primary) hypertension[ICD10: I10] Diagnosis: Acute recurrent maxillary sinusitis[ICD10: J01.01] Andreina Hoffmann MD, [facility] CPT-4: 18453 08/27/2016 ([id number]) 71401 EST. PATIENT, LEVEL IV Diagnosis: Essential (primary) hypertension[ICD10: I10] Diagnosis: Pain in right knee[ICD10: M25.561] Diagnosis: Pain in left knee[ICD10: M25.562] Andreina Hoffmann MD, [facility] CPT-4: 83976 05/30/2016 ([id number]) 93408 EST. PATIENT, LEVEL III Diagnosis: Essential (primary) hypertension[ICD10: I10] Diagnosis: Pain in right knee[ICD10: M25.561] Gisel Hoffmann MD, [facility] CPT-4: 28770 04/19/2016 ([id number]) 71822 EST. PATIENT, LEVEL IV Diagnosis: Essential (primary) hypertension[ICD10: I10] Diagnosis: Mixed hyperlipidemia[ICD10: E78.2] Diagnosis: Pain in right knee[ICD10: M25.561] Andreina Hoffmann MD, [facility] CPT-4: 26519 01/03/2016 ([id number]) 12472 EST. PATIENT, LEVEL IV Diagnosis: Essential (primary) hypertension[ICD10: I10] Diagnosis: Mixed hyperlipidemia[ICD10: E78.2] Diagnosis: Hyperglycemia, unspecified[ICD10: R73.9] Andreina Hoffmann MD, [facility] CPT-4: 03992 10/03/2015 78815 EST. PATIENT, LEVEL IV Diagnosis: Pain in right knee[ICD10: M25.561] Tiffany Hoffmann MD, [facility] CPT-4: 18262 05/25/2015 ([id number]) 88206 EST. PATIENT, LEVEL III Diagnosis: Essential (primary) hypertension[ICD10: I10] Diagnosis: Changes in skin texture[ICD10: R23.4] Andreina Hoffmann MD, [facility] CPT-4: 04446 04/03/2015 ([id number]) 57923 EST. PATIENT, LEVEL IV Diagnosis: ESSENTIAL HYPERTENSION[ICD9: 401.9] Diagnosis: DIABETES TYPE II[ICD9: 250.00] Diagnosis: HYPERLIPIDEMIA[ICD9: 272.4] Diagnosis: OSTEOARTH NOS-UNSPEC[ICD9: 715.90] [facility] CPT-4: 38289 11/23/2014 ([id number]) OFFICE VISIT, NEW - LEVEL 3 Diagnosis: ACUTE BRONCHITIS[ICD9: 466.0] Diagnosis: Dyspnea[ICD9: 786.09] Diagnosis: Sinusitis[ICD9: 473.9] Diagnosis: ACUTE MAXILLARY SINUSITIS[ICD9: 461.0] Andreina Hoffmann MD, [facility] CPT-4: 76038 09/20/2014 Plan of Care Planned Activity Notes [...] medications. 02/18/2018 [facility] [phone] [facility] ([facility] min) Moderate 02/18/2018 Patient Education: Patient Medication Summary Completed 02/18/2018 Patient Education: Diabetes Completed 02/18/2018 [facility] [phone] [facility] ([facility] min) Moderate 02/09/2018 Visit Plan: Hypertension [...] medications. 10/06/2017 Appointment: Andreina Hoffmann WPtel: [phone] [facility] (15 min) Moderate 10/06/2017 Patient Education: [...] improved. 06/23/2017 Appointment: Andreina Hoffmann WPtel: [phone] [facility] [place] (15 min) Moderate 06/23/2017 Patient Education: Patient Medication Summary Completed 06/23/2017 App[facility]ment[facility] [phone] [facility] [place] (15 min) Moderate 06/10/2017 Visit Plan: [...] today. 05/21/2017 Appointment: Andreina Hoffmann WPtel: [phone] [facility] (15 min) Moderate 05/21/2017 Patient Education: [...] today. 01/16/2017 App[facility]ment: [facility] [phone] [facility] [place] (15 min) Moderate 01/16/2017 Patient Education: Patient Medication Summary Completed 01/16/2017 [facility] [phone] [facility] [place] (15 min) Moderate 12/30/2016 Visit Plan: [...] avila - 08/27/2016 Appointment: Andreina Hoffmann WPtel: [address] [place], [place] [address] (15 min) Moderate 08/27/2016 Patient Education: Patient [...] for oxycodone 05/30/2016 Appointment: Andreina Hoffmann WPtel: [facility] (15 min) Moderate 05/30/2016 Patient Education: Patient Medication Summary Completed 05/30/2016 Patient Education: Obesity Completed 05/30/2016 Appointment: Gisel Titus WPtel: [phone] (30 min) Complex 05/24/2016 Visit Plan: Hypertension [...] Dr Galdamez-on IV abx-sees infection control at [place] 04/19/2016 Appointment: Gisel Titus WPtel: [phone] (30 min) Complex 04/19/2016 Patient Education: Patient Medication Summary Completed 04/19/2016 Patient Education: Hypertension Completed 04/19/2016 Appointment: Andreina Hoffmann WPtel: [facility] [phone] (15 min) Moderate 04/03/2016 Visit Plan: [...] Medication Summary Completed 05/25/2015 Referral: Demetrius Cedeno WPtel:[phone] Referral Completed 04/19/2015 Visit Plan: Hypertension - [...] local surgeons. 04/03/2015 [facility]ment: [phone] ([facility] min) Moderate 04/03/2015 Patient Education: Patient Medication Summary Completed 04/03/2015 Patient Education: Hypertension Completed 04/03/2015 Care Plan: Referral Order SNOMED-CT : [id number] Ordered 04/03/2015 Visit Plan: Hypertension - well [...] fasting labs. 11/23/2014 Appointment: Andreina Hoffmann WPtel: [facility] [id number] [place] [facility] New Patient 11/23/2014 Patient Education: [...] if symptoms acutely worsen. rocephin shot - [id number] exp 12/03/14 1ML 500mg apotec kenalog [id number] exp may 2016bristol fagan squibb 09/20/2014 Patient Education: Patient Medication Summary Completed 09/20/2014 Referral: Demetrius Cedeno WPtel:[phone] Referral Appointment Requested Instructions Comment Dr. Cedeno [...] Dr Galdamez-on IV abx-sees infection control at [place] . Hypertension - well controlled - continue [...] if symptoms acutely worsen. rocephin shot - [id number] exp 12/03/14 1ML 500mg apotec kenalog [id number] exp may 2016brist fagan squibb coconut oil start taking a probiotic - like culturelle or robbins Mover health - this will help to decrease [...]
--- OUTSIDE RECORDS SUMMARY | 2018-08-26 06:37 | XMS REPORT | CCD ---
Author Author Andreina Hoffmann Organization [facility] Address [address] [place] [address] Phone Care Team Providers Care Waiter/Waitress Head Name Role Phone PP Unavailable CCM Unavailable Summary Purpose Interface Exchange Insurance Providers Payer name Policy type / Coverage type Covered green party ID Effective Begin Date Effective End Date Blue Cross Blue Shield [facility] Blue Cross/Blue Shield [id number] Unknown Unknown WPS Medicare Part B Blue Cross/Blue Shield [id number] Unknown Unknown Family history Father Diagnosis Age [...] 6 adopted 11/23/[address]: 6242442 Former smoker 1970- quit 11/23/2014 Alcohol history Unknown occasionally drinks alcohol 11/23/2014 Living arrangements Unknown House 09/20/2014 Employment Unknown 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 [employer] [facility]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 09/20/2014 Allergies, Adverse Reactions, [...] Start Date Stop Date Status Fill Instructions betamethasone valerate 0.1 % topical ointment RxNorm: 013820 APPLY TOPICALLY TO SKIN LESIONS/RASH ON LEGS, ARMS AND BACK THREE TIMES DAILY 05/23/2018 Active 03/25/2018 10:44:47 AM Toprol XL 25 mg tablet,extended release RxNorm: 282046 TAKE 1 TABLET BY MOUTH EVERY DAY 02/16/2018 07/15/2018 Active Generic For:TOPROL XL 25MG 02/16/2018 9:19: 34 AM terazosin 2 mg capsule RxNorm: 012962 TAKE 1 CAPSULE BY MOUTH DAILY 02/16/2018 08/14/2018 Active 02/16/2018 9:02:27 AM terazosin 2 mg capsule RxNorm: 474122 TAKE 1 CAPSULE BY MOUTH DAILY 02/16/2018 02/15/2018 Inactive betamethasone valerate 0.1 % topical ointment RxNorm: 290478 APPLY TOPICALLY TO SKIN LESIONS/RASH ON LEGS, ARMS AND BACK THREE TIMES DAILY 02/09/2018 Inactive 12/12/2017 11:42:38 AM Toprol XL 25 mg tablet,extended release RxNorm: 918093 TAKE 1 TABLET BY MOUTH EVERY DAY 11/18/2017 02/15/2018 Inactive Generic For:TOPROL XL 25MG 11/18/2017 9: 12:07 AM oxycodone 5 mg tablet RxNorm: 4781108 1 Tablet(s) PO BID 201711/04/2017 Inactive betamethasone valerate 0.1 % topical ointment RxNorm: 951735 APPLY TOPICALLY TO SKIN LESIONS/RASH ON LEGS, ARMS AND BACK THREE TIMES DAILY 10/31/2017 Inactive 09/01/2017 4:21:36 PM terazosin 2 mg capsule RxNorm: 711764 TAKE 1 CAPSULE BY MOUTH DAILY 08/20/2017 02/15/2018 Inactive 08/20/2017 8:54:09 AM Toprol XL 25 mg tablet,extended release RxNorm: 943208 TAKE 1 TABLET BY MOUTH EVERY DAY 08/20/2017 11/17/2017 Inactive Generic For:TOPROL XL 25MG 08/20/2017 8: 58:18 AM betamethasone valerate 0.1 % topical ointment RxNorm: 983817 1 Application TOP TID apply to skin lesions/rash on legs, arms, back 201708/25/2017 Inactive Lipitor 20 mg tablet RxNorm: 280512 TAKE ONE TABLET BY MOUTH DAILY AT BEDTIME 05/22/2017 05/16/2018 Active Generic For:LIPITOR 20MG 05/22/2017 9:16:26 AM triamterene 37.5 mg-hydrochlorothiazide 25 mg capsule RxNorm: 797287 TAKE 1 CAPSULE BY MOUTH DAILY 05/22/20172018 Active Generic For:DYAZIDE 37.5-25 05/22/2017 9:16:22 AM betamethasone valerate 0.1 % topical ointment RxNorm: 242977 1 Application TOP TID apply to skin lesions/rash on legs, arms, back 201706/19/2017 Inactive terazosin 2 mg capsule RxNorm: 473780 TAKE 1 CAPSULE BY MOUTH DAILY 02/19/2017 08/17/2017 Inactive 02/19/2017 11:33:02 AM clobetasol 0.05 % topical cream RxNorm: 318489 1 Application TOP daily as needed 01/17/2017 No Stop Date Active mupirocin 2 % topical cream RxNorm: 932037 1 Application TOP BID 01/16/2017 02/14/2017 Inactive terazosin 2 mg capsule RxNorm: 149341 1 Capsule(s) PO daily 02/18/2017 Inactive oxycodone 5 mg tablet RxNorm: 2761170 1 Tablet(s) PO BID 201610/10/2016 Inactive ceftriaxone 500 mg solution for injection RxNorm: 7053874 1 Milliliter(s) Inj 08/27/2016 08/27/2016 Inactive azithromycin 250 mg tablet RxNorm: 010120 1 Tablet(s) PO UD take two pills on day #1, then one pill daily x 4 days 08/27/2016 01/15/2017 Inactive Toprol XL 25 mg tablet,extended release RxNorm: 774447 1 Tablet(s) PO daily 08/26/2016 12/23/2016 Inactive oxycodone 5 mg tablet RxNorm: 8085305 1 Tablet(s) PO BID 201607/27/2016 Inactive Lipitor 20 mg tablet RxNorm: 803137 1 Tablet(s) QHS TAKE 1 TABLET BY MOUTH ONCE DAILY AT BEDTIME. 05/27/2016 05/21/2017 Inactive Generic For:LIPITOR 20MG 2014 11:51:16 AM N O T I C E PRESCRIPTION PREVIOUSLY AUTHORIZED BY DOCTOR: NICHOLE ESPANA triamterene 37.5 mg-hydrochlorothiazide 25 mg capsule RxNorm: 092910 1 Capsule(s) PO daily 05/27/2016 05/21/2017 Inactive terazosin 2 mg capsule RxNorm: 407937 1 Capsule(s) PO daily 08/19/2016 Inactive terazosin 2 mg capsule RxNorm: 816973 1 Capsule(s) PO daily 04/21/2016 Inactive terazosin 5 mg capsule RxNorm: 597295 1/2 Tablet(s) PO QPM 04/21/2016 Inactive Toprol XL 25 mg tablet,extended release RxNorm: 555308 1 Tablet(s) PO daily 04/16/2016 04/15/2016 Inactive Toprol XL 25 mg tablet,extended release RxNorm: 091567 1 Tablet(s) PO daily 04/16/2016 08/13/2016 Inactive pantoprazole 40 mg tablet,delayed release RxNorm: 499925 1 Tablet(s) PO daily 04/16/2016 04/15/2016 Inactive pantoprazole 40 mg tablet,delayed release RxNorm: 928681 1 Tablet(s) PO daily 04/16/2016 01/15/2017 Inactive Toprol XL 50 mg tablet,extended release RxNorm: 681259 1 Tablet(s) PO daily 02/28/2016 04/15/2016 Inactive terazosin 5 mg capsule RxNorm: 910277 1 Tablet(s) PO QPM 201504/18/2016 Inactive oxycodone 5 mg tablet RxNorm: 3658247 1 Tablet(s) PO UD 1/2 at 3pm, 1 pill at 9pm and may take up to 2 pills bid if needed. 01/03/2016 06/27/2016 Inactive Toprol XL 50 mg tablet,extended release RxNorm: 186348 1 Tablet(s) PO daily 11/15/2015 02/27/2016 Inactive terazosin 5 mg capsule RxNorm: 406769 1 Tablet(s) PO QPM 201501/01/2016 Inactive Lipitor 20 mg tablet RxNorm: 632370 1 Tablet(s) QHS TAKE 1 TABLET BY MOUTH ONCE DAILY AT BEDTIME. 06/01/2015 05/25/2016 Inactive Generic For:LIPITOR 20MG 2014 11:51:16 AM N O T I C E PRESCRIPTION PREVIOUSLY AUTHORIZED BY DOCTOR: NICHOLE ESPANA Kenalog 40 mg/mL suspension for injection RxNorm: 2422704 1 Milliliter(s) Inj 05/25/2015 05/25/2015 Inactive terazosin 5 mg capsule RxNorm: 907028 1 Tablet(s) PO QPM 201407/05/2015 Inactive Toprol XL 50 mg tablet,extended release RxNorm: 834411 1 Tablet(s) PO daily 05/04/2015 10/30/2015 Inactive terazosin 5 mg capsule RxNorm: 923401 1 Tablet(s) PO QPM 201405/03/2015 Inactive triamterene 37.5 mg-hydrochlorothiazide 25 mg capsule RxNorm: 035614 1 Capsule(s) PO daily 04/26/2015 05/26/2016 Inactive Voltaren 1 % topical gel RxNorm: 441496 4 Gram(s) TOP QID to knees 04/19/2015 07/17/2015 Inactive Lipitor 20 mg tablet RxNorm: 218685 Tablet(s) TAKE 1 TABLET BY MOUTH ONCE DAILY AT BEDTIME. 04/13/2015 05/31/2015 Inactive Generic For:LIPITOR 20MG 03/24/2015 11: 51:16 AM N O T I C E PRESCRIPTION PREVIOUSLY AUTHORIZED BY DOCTOR:NICHOLE ESPANA Lipitor 20 mg tablet RxNorm: 480836 TAKE 1 TABLET BY MOUTH ONCE DAILY AT BEDTIME. 03/24/2015 04/12/2015 Inactive Generic For:LIPITOR 20MG 03/24/2015 11:51:16 AM N O T I C E PRESCRIPTION PREVIOUSLY AUTHORIZED BY DOCTOR:NICHOLE ESPANA [phone] Lipitor 20 mg tablet RxNorm: 390773 TAKE 1 TABLET BY MOUTH ONCE DAILY AT BEDTIME. 03/24/2015 03/23/2015 Inactive Generic For:LIPITOR 20MG 03/24/2015 11:51:16 AM N O T I C E PRESCRIPTION PREVIOUSLY AUTHORIZED BY DOCTOR:NICHOLE ESPANA Lipitor 20 mg tablet RxNorm: 262427 1 Tablet(s) PO daily 201403/23/2015 Inactive Toprol XL 50 mg tablet,extended release RxNorm: 252706 1 Tablet(s) PO daily 03/08/2015 05/03/2015 Inactive Toprol XL 50 mg tablet,extended release RxNorm: 865921 1 Tablet(s) PO daily 03/08/2015 03/07/2015 Inactive Toprol XL 50 mg tablet,extended release RxNorm: 223954 1 Tablet(s) PO daily 03/07/2015 03/07/2015 Inactive triamterene 37.5 mg-hydrochlorothiazide 25 mg capsule RxNorm: 105185 1 Capsule(s) PO daily 01/26/2015 04/25/2015 Inactive Hytrin 5 mg tablet RxNorm: 274289 1 Tablet(s) PO QPM 201403/25/2015 Inactive triamterene 37.5 mg-hydrochlorothiazide 25 mg capsule RxNorm: 754909 1 Capsule(s) PO daily 01/25/2015 01/25/2015 Inactive Voltaren 1 % topical gel RxNorm: 696057 4 Gram(s) TOP QID to knees 11/23/2014 02/20/2015 Inactive aspirin 81 mg chewable tablet RxNorm: 922728 1 Tablet(s) PO daily 09/20/2014 12/02/2017 Inactive azithromycin 250 mg tablet RxNorm: 141135 2 Tablet(s) PO on day #1, then 1 pill on days #2-5 09/20/2014 04/02/2015 Inactive [SAVINGS FOR NON-COVERED DRUGS -- BIN: [id number], PCN: [id number], Group: XXXXX, ID# XXXXXXX, Questions: . THIS IS NOT INSURANCE.] triamterene 37.5 mg-hydrochlorothiazide 25 mg capsule RxNorm: 348919 1 Capsule(s) PO daily 09/20/2014 01/24/2015 Inactive Keflex 500 mg capsule RxNorm: 361344 1 Capsule(s) PO TID 201409/26/2014 Inactive PLEASE CALL PT TO LET HIM KNOW THAT THE ANTIBIOTICS ARE READY FOR AUTOMOBILE SERVICE ADVISOR - START ON 09/21/14 Hytrin 5 mg tablet RxNorm: 438794 1 Tablet(s) PO QPM 201401/24/2015 Inactive Vitamin C 500 mg chewable tablet RxNorm: 651092 1 Tablet(s) PO daily 09/20/2014 08/27/2016 Inactive Toprol XL 50 mg tablet,extended release RxNorm: 747613 1 Tablet(s) PO daily 09/20/2014 03/06/2015 Inactive prednisone 20 mg tablet RxNorm: 128378 3 Tablet(s) PO daily 09/24/2014 Inactive [SAVINGS FOR NON-COVERED DRUGS -- BIN:558375, PCN: ASPROD1, Group: XXXXX, ID# XXXXXXX, Questions: . THIS IS NOT INSURANCE.] Vitamin D3 1,000 unit capsule RxNorm: 844684 1 Capsule(s) PO daily 09/20/2014 08/27/2016 Inactive fish oil-dha-epa 1,200 mg-144 mg-216 mg capsule RxNorm: 1 Capsule(s) PO daily 09/20/2014 08/27/2016 Inactive Lipitor 20 mg tablet RxNorm: 032374 1 Tablet(s) PO daily 201403/23/2015 Inactive naproxen sodium 220 mg tablet RxNorm: 870957 1 Tablet(s) PO BID as needed for pain 09/20/2014 01/02/2016 Inactive penicillin V potassium 500 mg tablet RxNorm: 668544 1 Tablet(s) PO daily - Prescribed by Dr. Adam No Start Date Active Fish Oil 360 mg-1,200 mg capsule RxNorm: 643235 1 Capsule(s) PO daily No Start Date Active Vitamin D3 2,000 unit tablet RxNorm: 705679 1 Tablet(s) PO daily No Start Date Active naproxen 250 mg tablet RxNorm: 532644 Tablet(s) PO BID as needed No Start Date Active Stool Softener 100 mg capsule RxNorm: 8424607 1 Capsule(s) PO BID No Start Date Active Probiotic oral RxNorm : 6205 oral No Start Date Active Vitamin C 1,000 mg tablet RxNorm: 004436 1 Tablet(s) PO daily No Start Date Active rifampin 150 mg capsule RxNorm: 447400 1 Capsule(s) PO daily No Start Date 08/26/2016 Inactive calcium carbonate 550 mg chewable tablet RxNorm: 267157 1 Tablet(s) PO QID as needed No Start Date 08/26/2016 Inactive clobetasol 0.05 % topical cream RxNorm: 740540 1 Application TOP daily as needed No Start Date 01/16/2017 Inactive Medication Administered Medication Codes Instructions Start Date Status ceftriaxone 500 mg solution for injection RxNorm: 9231586 1Milliliter 08/27/2016 No longer Active Kenalog 40 mg/mL suspension for injection RxNorm: 1812346 1Milliliter 05/25/2015 No longer Active Immunizations Vaccine Codes Date Status Influenza CVX: 141 04/06/2016 completed Assessments Condition Codes Effective Dates Type 2 diabetes mellitus without complications ICD-10: E11.9 ICD-9: 250.00 02/18/2018 Mixed hyperlipidemia ICD-10: E78.2 ICD-9: 272.4 02/18/2018 Essential (primary) hypertension ICD-10: I10 ICD-9: 401.1 02/18/2018 Mixed hyperlipidemia ICD-10: E78.2 ICD-9: 272.2 [...] 272.4 11/23/2014 OSTEOARTH NOS-UNSPEC ICD-9: 715.90 2014 Sinusitis ICD-9: 473.9 09/20/2014 ACUTE MAXILLARY SINUSITIS ICD-9: 461.0 Dyspnea ICD-9: 786.09 09/20/2014 ACUTE BRONCHITIS ICD-9: 466.0 09/20/2014 Reason For Visit Reason For Visit Effective Dates Notes hypertension 02/18/2018 hypertension 10/06/2017 sores 06/23/2017 hypertension 05/21/2017 hypertension 01/16/2017 hypertension 08/27/2016 hypertension 05/30/2016 hypertension 04/19/2016 knee pain 01/03/2016 knee pain 10/03/2015 knee pain 05/25/2015 knee pain 04/03/2015 knee pain 11/23/2014 sinus congestion 09/20/2014 Results Observation Observation Code Item Item Code Result Date %Hba1C Bdg225 % HbA1c 44173-0 6.6 % 10/03/2017 %Hba1C Ggc941 Gluc Ave 143 mg/dL 10/03/2017 Cbc With Differential Ord2 WBC 7.01 [...] 31.1 pg 10/03/2017 Cbc With Differential Ord2 Winkler% 10.4 % 10/03/2017 Cbc With Differential Ord2 MCHC 33.4 pg 10/03/2017 Cbc With Differential Ord2 Eos% 4.1 % 10/03/2017 Cbc With Differential Ord2 PLT 190 K/ul 10/03/2017 Cbc With Differential Ord2 Baso% 1.3 % 10/03/2017 Cbc With Differential Ord2 Neut ABS# 4.46 K/ul 10/03/2017 Cbc With Differential Ord2 RDW 12.7 % 10/03/2017 Cbc With Differential Ord2 Lymph ABS# 1.44 K/ul 10/03/2017 Cbc With Differential Ord2 Winkler ABS# 0.7 K/ul 10/03/2017 Cbc With Differential Ord2 Eos ABS# 0.3 K/ul 10/03/2017 Cbc With Differential Ord2 Baso ABS# 0.1 K/ul 10/03/2017 Lipid Ord30 CHOL 121 mg/dL 10/03/2017 Lipid Ord30 HDL 42.0 mg/dl 10/03/2017 Lipid Ord30 TRIG 72 mg/dL 10/03/2017 Lipid Ord30 LDL 65 mg/dL 10/03/2017 Lipid Ord30 C/HDL 2.9 Ratio 10/03/2017 Metabolic Ord15 NA 138 mEq/L 09/23/2017 Metabolic [...] 09/23/2017 Metabolic Ord15 CALCIUM 9.4 mg/dL 09/23/2017 Phosphorus Ord71 PHOS 2.8 mg/dL 09/23/2017 Uric Acid Ord77 Uric A 5.1 mg/dL 09/23/2017 Tsh Ord6 hTSH II 1.34 uIU/mL 05/21/2017 %Hba1C Rbr177 % HbA1c 02424-3 6.6 % 05/21/2017 %Hba1C Rrb708 Gluc Ave 143 mg/dL 05/21/2017 Comp Metabolic Eel944 NA 138 mEq/L 05/21/2017 Comp Metabolic Net719 K 3.8 mEq/L 05/21/2017 Comp Metabolic Tgr002 CL 99 mEq/L 05/21/2017 Comp Metabolic Tbh522 CO2 31.0 mEq/L 05/21/2017 Comp Metabolic Egu750 ANION GAP 12 05/21/2017 Comp Metabolic Rfs144 GLUCOSE 93 mg/dL 05/21/2017 Comp Metabolic Obg811 Creat 0.8 mg/dL 05/21/2017 Comp Metabolic Qgx416 eGFR 102 ml/min/1.73m2 05/21/2017 Comp Metabolic Xwr978 BUN 13 mg/dL 05/21/2017 Comp Metabolic Dws955 B/C Ratio 16.7 Ratio 05/21/2017 Comp Metabolic Qai775 CALCIUM 9.9 mg/dL 05/21/2017 Comp Metabolic Dim395 ALK PHOS 99 U/L 05/21/2017 Comp Metabolic Xoe126 AST(SGOT) 18 U/L 05/21/2017 Comp Metabolic Qvi658 ALT(SGPT) 29 U/L 05/21/2017 Comp Metabolic Vhh266 BILI T 0.7 mg/dL 05/21/2017 Comp Metabolic Lcf346 ALBUMIN 4.1 g/dL 05/21/2017 Comp Metabolic Bxo837 TPRO 6.6 g/dL 05/21/2017 Comp Metabolic Smb812 GLOB 2.6 g/dL 05/21/2017 Comp Metabolic Iwv762 A/G Ratio 1.6 Ratio 05/21/2017 Comp Metabolic Skz844 Osmo 275 mOsmo 05/21/2017 Cbc With Differential Ord2 WBC 6.58 K/ul [...] 31.3 pg 10/04/2015 Cbc With Differential Ord2 Winkler% 9.1 % 10/04/2015 Cbc With Differential Ord2 MCHC 33.1 pg 10/04/2015 Cbc With Differential Ord2 Eos% 6.7 % 10/04/2015 Cbc With Differential Ord2 Baso% 1.2 % 10/04/2015 Cbc With Differential Ord2 PLT 224 K/ul 10/04/2015 Cbc With Differential Ord2 Neut ABS# 4.00 K/ul 10/04/2015 Cbc With Differential Ord2 RDW 12.9 % 10/04/2015 Cbc With Differential Ord2 Lymph ABS# 1.46 K/ul 10/04/2015 Cbc With Differential Ord2 Winkler ABS# 0.6 K/ul 10/04/2015 Cbc With Differential Ord2 Eos ABS# 0.4 K/ul 10/04/2015 Cbc With Differential Ord2 Baso ABS# 0.1 K/ul 10/04/2015 Tsh Ord6 hTSH II 1.07 uIU/mL 10/04/2015 Lipid Ord30 CHOL 123 mg/dL 10/04/2015 Lipid Ord30 HDL 41.0 mg/dl 10/04/2015 Lipid Ord30 TRIG 65 mg/dL 10/04/2015 Lipid Ord30 LDL 69 mg/dL 10/04/2015 Lipid Ord30 C/HDL 3.0 Ratio 10/04/2015 Comp Metabolic Cib489 NA 139 mEq/L 10/04/2015 Comp Metabolic Hbt315 K 3.8 mEq/L 10/04/2015 Comp Metabolic Twf970 CL 104 mEq/L 10/04/2015 Comp Metabolic Lyl271 CO2 32.0 mEq/L 10/04/2015 Comp Metabolic Isj781 ANION GAP 7 10/04/2015 Comp Metabolic Gzn729 GLUCOSE 112 mg/dL 10/04/2015 Comp Metabolic Obk927 Creat 0.8 mg/dL 10/04/2015 Comp Metabolic Hfm138 eGFR 102 ml/min/1.73m2 10/04/2015 Comp Metabolic Avf988 BUN 16 mg/dL 10/04/2015 Comp Metabolic Lyw590 B/C Ratio 20.5 Ratio 10/04/2015 Comp Metabolic Cxc237 CALCIUM 9.3 mg/dL 10/04/2015 Comp Metabolic Tbg957 ALK PHOS 87 U/L 10/04/2015 Comp Metabolic Igk278 AST(SGOT) 17 U/L 10/04/2015 Comp Metabolic Vbu438 ALT(SGPT) 24 U/L 10/04/2015 Comp Metabolic Kqq363 BILI T 0.6 mg/dL 10/04/2015 Comp Metabolic Apx594 ALBUMIN 4.0 g/dL 10/04/2015 Comp Metabolic Tuo289 TPRO 6.3 g/dL 10/04/2015 Comp Metabolic Grw997 GLOB 2.3 g/dL 10/04/2015 Comp Metabolic Hcc629 A/G Ratio 1.7 Ratio 10/04/2015 Comp Metabolic Cau549 Osmo 279 mOsmo 10/04/2015 %Hba1C Pyg970 % HbA1c 13432-1 6.4 % 10/04/2015 %Hba1C Rlb997 Gluc Ave 137 mg/dL 10/04/2015 %Hba1C Kts448 % HbA1c 11445-8 6.5 % 11/24/2014 %Hba1C Yob725 Gluc Ave 140 mg/dL 11/24/2014 Tsh Ord6 hTSH II 0.73 uIU/mL 11/23/2014 Cbc With Differential Ord2 WBC 7.7 [...] With Differential Ord2 RDW 13.4 % 11/23/2014 Comp Metabolic Usv483 NA 135 mEq/L 11/23/2014 Comp Metabolic Fsg087 K 3.7 mEq/L 11/23/2014 Comp Metabolic Agx860 CL 101 mEq/L 11/23/2014 Comp Metabolic Nkx851 CO2 28.0 mEq/L 11/23/2014 Comp Metabolic Mbf815 ANION GAP 10 11/23/2014 Comp Metabolic Nij078 GLUCOSE 104 mg/dL 11/23/2014 Comp Metabolic Iwc129 Creat 0.8 mg/dL 11/23/2014 Comp Metabolic Zje970 eGFR 104 ml/min/1.73m2 11/23/2014 Comp Metabolic Uwk554 BUN 10 mg/dL 11/23/2014 Comp Metabolic Wpf521 B/C Ratio 13.0 Ratio 11/23/2014 Comp Metabolic Vva597 CALCIUM 9.7 mg/dL 11/23/2014 Comp Metabolic Lmj688 ALK PHOS 92 U/L 11/23/2014 Comp Metabolic Xym291 AST(SGOT) 17 U/L 11/23/2014 Comp Metabolic Nql705 ALT(SGPT) 26 U/L 11/23/2014 Comp Metabolic Trn032 BILI T 1.1 mg/dL 11/23/2014 Comp Metabolic Wpi627 ALBUMIN 4.1 g/dL 11/23/2014 Comp Metabolic Zxf630 TPRO 6.3 g/dL 11/23/2014 Comp Metabolic Yqd819 GLOB 2.2 g/dL 11/23/2014 Comp Metabolic Vpx117 A/G Ratio 1.9 Ratio 11/23/2014 Comp Metabolic Diz947 Osmo 269 mOsmo 11/23/2014 Lipid Ord30 CHOL 121 mg/dL 11/23/2014 Lipid Ord30 HDL 37.0 mg/dl 11/23/2014 Lipid Ord30 TRIG 93 mg/dL 11/23/2014 Lipid Ord30 LDL 65 mg/dL 11/23/2014 Lipid Ord30 C/HDL 3.3 Ratio 11/23/2014 Review of Systems System Result Effective [...] clear 05/30/2016 None Full Exam - General 1995 Ears/Nose/Throat [...] MG CPT-4: J0696 08/27/2016 DRAIN/INJECT JOINT/BURSA CPT-4: 85690 05/25/2015 TRIAMCINOLONE ACET INJ NOS CPT-4: J3301 05/25/2015 TRIAMCINOLONE ACET INJ NOS CPT-4: J3301 09/20/2014 ROCEPHIN, PER 250 MG CPT-4: J0696 09/20/2014 THER/PROPH/DIAG INJ SC/IM CPT-4: 91038 09/20/2014 Vital Signs Date Vital 02/18/2018 Blood Pressure 1: 128/72 Code : 8480-6 BMI: 31.5 Code : 89450-3 Heart Rate 1 : 68 bpm Height: 5'9" SpO2: 97% Weight: 213 lbs 10/06/2017 Blood Pressure 1: 134/70 Code : 8480-6 BMI: 31.5 Code : 01345-3 Heart Rate 1 : 65 bpm Height: 5'9" SpO2: 97% Weight: 213 lbs 06/23/2017 Blood Pressure 1: 136/72 Code : 8480-6 BMI: 31.5 Code : 87073-5 Heart Rate 1 : 64 bpm Height: 5'9" SpO2: 93% Weight: 213 lbs 05/21/2017 Blood Pressure 1: 118/80 Code : 8480-6 BMI: 32.2 Code : 40650-4 Heart Rate 1 : 76 bpm Height: 5'9" SpO2: 98% Weight: 218 lbs 01/16/2017 Blood Pressure 1: 132/78 Code : 8480-6 BMI: 31.0 Code : 22634-5 Heart Rate 1 : 63 bpm Height: 5'9" SpO2: 98% Weight: 210 lbs 08/27/2016 Blood Pressure 1: 128/72 Code : 8480-6 BMI: 30.4 Code : 72356-1 Heart Rate 1 : 69 bpm Height: 5'9" SpO2: 95% Temperature: 37.1 (C) / 98.7 (F) Weight: 206 lbs 05/30/2016 Blood Pressure 1: 136/64 Code : 8480-6 BMI: 30.7 Code : 08888-0 Heart Rate 1 : 77 bpm Height: 5'9" SpO2: 94% Weight: 208 lbs 04/19/2016 Blood Pressure 1: 108/68 Code : 8480-6 BMI: 28.8 Code : 26655-7 Height: 5'9" SpO2: 97% Weight: 195 lbs 01/03/2016 Blood Pressure 1: 120/70 Code : 8480-6 BMI: 31.0 Code : 95232-5 Heart Rate 1 : 81 bpm Height: 5'9" SpO2: 98% Weight: 210 lbs 10/03/2015 Blood Pressure 1: 128/68 Code : 8480-6 BMI: 31.7 Code : 38467-1 Heart Rate 1 : 60 bpm Height: 5'9" SpO2: 97% Weight: 215 lbs 05/25/2015 Blood Pressure 1: 138/84 Code : 8480-6 BMI: 32.6 Code : 25614-0 Heart Rate 1 : 60 bpm Height: 5'9" SpO2: 96% Weight: 221 lbs 04/03/2015 Blood Pressure 1: 136/70 Code : 8480-6 Blood Pressure 1: 142/74 Code: 8480-6 BMI: 32.5 Code: 53617-1 Heart Rate 1: 59 bpm Height: 5'9" SpO2: 94% Weight: 220 lbs 11/23/2014 Blood Pressure 1: 138/72 Code : 8480-6 BMI: 32.0 Code : 10618-9 Heart Rate 1 : 61 bpm Height: [...] data Encounters Encounter Performer Location Codes Date ([id number]) [id number] EST. PATIENT, LEVEL IV Diagnosis: Type 2 diabetes mellitus without complications[ICD10: E11.9] Diagnosis: Essential (primary) hypertension[ICD10: I10] Diagnosis: Mixed hyperlipidemia[ICD10: E78.2] Andreina Hoffmann MD, [facility] CPT-4: 91573 02/18/2018 [id number]) 83546 EST. PATIENT, LEVEL IV Diagnosis: Essential (primary) hypertension[ICD10: I10] Diagnosis: Type 2 diabetes mellitus without complications[ICD10: E11.9] Diagnosis: Mixed hyperlipidemia[ICD10: E78.2] Andreina Hoffmann MD [facility] CPT-4: 23519 10/06/2017 [id number]) 64662 EST. PATIENT, LEVEL III Diagnosis: Rash and other nonspecific skin eruption[ICD10: R21] Andreina Hoffmann MD [facility] CPT-4: 95170 06/23/2017 [id number]) 25500 EST. PATIENT, LEVEL IV Diagnosis: Essential (primary) hypertension[ICD10: I10] Diagnosis: Other abnormal glucose[ICD10: R73.09] Diagnosis: Rash and other nonspecific skin eruption[ICD10: R21] Diagnosis: Pain in right knee[ICD10: M25.561] Diagnosis: Impaired fasting glucose[ICD10: R73.01] Andreina Hoffmann MD [facility] CPT-4: 54367 05/21/2017 ([id number]) [id number] EST. PATIENT, LEVEL IV Diagnosis: Essential (primary) hypertension[ICD10: I10] Diagnosis: Pain in right knee[ICD10: M25.561] Diagnosis: Rash and other nonspecific skin eruption[ICD10: R21] Diagnosis: Other abnormal glucose[ICD10: R73.09] Diagnosis: Mixed hyperlipidemia[ICD10: E78.2] Andreina Hoffmann MD, [facility] CPT-4: 40046 01/16/2017 [id number]) 38498 EST. PATIENT, LEVEL IV Diagnosis: Essential (primary) hypertension[ICD10: I10] Diagnosis: Acute recurrent maxillary sinusitis[ICD10: J01.01] Andreina Hoffmann MD, [facility] CPT-4: 74746 08/27/2016 ([id number]) 30650 EST. PATIENT, LEVEL IV Diagnosis: Essential (primary) hypertension[ICD10: I10] Diagnosis: Pain in right knee[ICD10: M25.561] Diagnosis: Pain in left knee[ICD10: M25.562] Andreina Hoffmann MD, [facility] CPT-4: 05283 05/30/2016 ([id number]) 67347 EST. PATIENT, LEVEL III Diagnosis: Essential (primary) hypertension[ICD10: I10] Diagnosis: Pain in right knee[ICD10: M25.561] Gisel Hoffmann MD, [facility] CPT-4: 36260 04/19/2016 ([id number]) 74829 EST. PATIENT, LEVEL IV Diagnosis: Essential (primary) hypertension[ICD10: I10] Diagnosis: Mixed hyperlipidemia[ICD10: E78.2] Diagnosis: Pain in right knee[ICD10: M25.561] Andreina Hoffmann MD, [facility] CPT-4: 66111 01/03/2016 ([id number]) 00999 EST. PATIENT, LEVEL IV Diagnosis: Essential (primary) hypertension[ICD10: I10] Diagnosis: Mixed hyperlipidemia[ICD10: E78.2] Diagnosis: Hyperglycemia, unspecified[ICD10: R73.9] Andreina Hoffmann MD, [facility] CPT-4: 35227 10/03/2015 94982 EST. PATIENT, LEVEL IV Diagnosis: Pain in right knee[ICD10: M25.561] Tiffany Hoffmann MD, [facility] CPT-4: 00748 05/25/2015 ([id number]) 24446 EST. PATIENT, LEVEL III Diagnosis: Essential (primary) hypertension[ICD10: I10] Diagnosis: Changes in skin texture[ICD10: R23.4] Andreina Hoffmann MD, [facility] CPT-4: 28621 04/03/2015 ([id number]) 92138 EST. PATIENT, LEVEL IV Diagnosis: ESSENTIAL HYPERTENSION[ICD9: 401.9] Diagnosis: DIABETES TYPE II[ICD9: 250.00] Diagnosis: HYPERLIPIDEMIA[ICD9: 272.4] Diagnosis: OSTEOARTH NOS-UNSPEC[ICD9: 715.90] [facility] CPT-4: 89926 11/23/2014 ([id number]) OFFICE VISIT, NEW - LEVEL 3 Diagnosis: ACUTE BRONCHITIS[ICD9: 466.0] Diagnosis: Dyspnea[ICD9: 786.09] Diagnosis: Sinusitis[ICD9: 473.9] Diagnosis: ACUTE MAXILLARY SINUSITIS[ICD9: 461.0] [facility] CPT-4: 61938 09/20/2014 Plan of Care Planned Activity Notes [...] to medications. 02/18/2018 Appointment: Andreina Hoffmann WPtel: [phone] [id number] (15 min) Moderate 02/18/2018 Patient Education: Patient Medication Summary Completed 02/18/2018 Patient Education: Diabetes Completed 02/18/2018 Appointment: Andreina Hoffmann WPtel: [phone] [id number] [place] (15 min) Moderate 02/09/2018 Visit Plan: Hypertension [...] normal liver response to medications. 10/06/2017 Appointment: Adnreina Hoffmann WPtel: [phone] [id number] [place] (15 min) Moderate 10/06/2017 Patient Education: [...] improved. 06/23/2017 Appointment: Andreina Hoffmann WPtel: [phone] [id number] (15 min) Moderate 06/23/2017 Patient Education: Patient Medication Summary Completed 06/23/2017 Appointment: Andreina Hoffmann WPtel: [phone] [facility] (15 min) Moderate 06/10/2017 Visit Plan: [...] today. 05/21/2017 [phone] ([facility]) Moderate 05/21/2017 Patient Education: Patient [...] provided today. 01/16/2017 Appointment: Andreina Hoffmann WPtel: [facility] (15 min) Moderate 01/16/2017 Patient Education: Patient Medication Summary Completed 01/16/2017 Appointment: Andrenia Hoffmann WPtel: [facility] (15 min) Moderate 12/30/2016 Visit Plan: [...] not improved, or if symptoms acutely worsen. rocepjacin shot - 08/27/2016 Appointment: Andreina Hoffmann WPtel: [phone] [facility] (15 min) Moderate 08/27/2016 Patient Education: Patient [...] oxycodone 05/30/2016 Appointment: Andreina Hoffmann WPtel: [phone] [facility] (15 min) Moderate 05/30/2016 Patient Education: Patient Medication Summary Completed 05/30/2016 Patient Education: Obesity Completed 05/30/2016 [phone] [place] (30 min) Complex 05/24/2016 Visit Plan: Hypertension [...] Dr Galdamez-on IV abx-sees infection control at [facility] 04/19/2016 Appointment: [phone] [place] [place] (30 min) Complex 04/19/2016 Patient Education: Patient Medication Summary Completed 04/19/2016 Patient Education: Hypertension Completed 04/19/2016 [phone] ([facility] min) Moderate 04/03/2016 Visit Plan: Hypertension [...] Medication Summary Completed 05/25/2015 Referral: Demetrius Cedeno WPtel:[phone] Referral Completed 04/19/2015 Visit Plan: Hypertension - [...] local surgeons. 04/03/2015 [phone] (15 min) Moderate 04/03/2015 Patient Education: Patient Medication Summary Completed 04/03/2015 Patient Education: Hypertension Completed 04/03/2015 Care Plan: Referral Order SNOMED-CT : [id number] Ordered 04/03/2015 Visit Plan: Hypertension - well [...] labs. 11/23/2014 App[facility]ment: [phone] [place] New Patient 11/23/2014 Patient [...] if symptoms acutely worsen. rocephin shot - [id number] exp 12/03/14 1ML 500mg apotec kenalog [id number] exp may 2016bristol fagan squibb 09/20/2014 Patient Education: Patient Medication Summary Completed 09/20/2014 Referral: Demetrius Cedeno WPtel:[phone] Referral Appointment Requested Instructions Comment Dr. Cedeno [...] Dr Galdamez-on IV abx-sees infection control at [facility] . Hypertension - well controlled - continue [...] if symptoms acutely worsen. rocephin shot - [id number] exp 12/03/14 1ML 500mg apotec kenalog [id number] [facility] coconut oil start taking a probiotic - like Handprint or Tigermed - this will help to decrease the [...]
--- OUTSIDE RECORDS SUMMARY | 2018-08-26 06:39 | XMS REPORT | CCD ---
Author Author [facility] Hoffmann Organization [facility] Address [address] [place] [address] Phone Care Team Providers Care Desk Assistant Name Role Phone PP Unavailable CCM Unavailable Summary Purpose Interface Exchange Insurance Providers Payer name Policy type / Coverage type Covered libertarian ID Effective Begin Date Effective End Date Blue Cross Blue Shield [facility] Blue Cross/Blue Shield [id number] Unknown Unknown WPS Medicare Part B Blue Cross/Blue Shield [id number] Unknown Unknown Family history Father Diagnosis Age [...] 6 adopted 11/23/[address]: 3525142 Former smoker 1970- quit 11/23/2014 Alcohol history Unknown occasionally drinks alcohol 11/23/2014 Living arrangements Unknown House 09/20/2014 Employment Unknown 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[facility]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 09/20/2014 Allergies, Adverse Reactions, [...] Toprol XL 25 mg tablet,extended release RxNorm: 016167 TAKE 1 TABLET BY MOUTH EVERY DAY 02/16/2018 07/15/2018 Active Generic For:TOPROL XL 25MG 02/16/2018 9:19: 34 AM terazosin 2 mg capsule RxNorm: 239672 TAKE 1 CAPSULE BY MOUTH DAILY 02/16/2018 08/14/2018 Active 02/16/2018 9:02:27 AM terazosin 2 mg capsule RxNorm: 842063 TAKE 1 CAPSULE BY MOUTH DAILY 02/16/2018 02/15/2018 Inactive betamethasone valerate 0.1 % topical ointment RxNorm: 782055 APPLY TOPICALLY TO SKIN LESIONS/RASH ON LEGS, ARMS AND BACK THREE TIMES DAILY 02/09/2018 Inactive 12/12/2017 11:42:38 AM Toprol XL 25 mg tablet,extended release RxNorm: 921519 TAKE 1 TABLET BY MOUTH EVERY DAY 11/18/2017 02/15/2018 Inactive Generic For:TOPROL XL 25MG 11/18/2017 9: 12:07 AM oxycodone 5 mg tablet RxNorm: 1812358 1 Tablet(s) PO BID 201711/04/2017 Inactive betamethasone valerate 0.1 % topical ointment RxNorm: 254135 APPLY TOPICALLY TO SKIN LESIONS/RASH ON LEGS, ARMS AND BACK THREE TIMES DAILY 10/31/2017 Inactive 09/01/2017 4:21:36 PM terazosin 2 mg capsule RxNorm: 295119 TAKE 1 CAPSULE BY MOUTH DAILY 08/20/2017 02/15/2018 Inactive 08/20/2017 8:54:09 AM Toprol XL 25 mg tablet,extended release RxNorm: 933266 TAKE 1 TABLET BY MOUTH EVERY DAY 08/20/2017 11/17/2017 Inactive Generic For:TOPROL XL 25MG 08/20/2017 8: 58:18 AM betamethasone valerate 0.1 % topical ointment RxNorm: 188749 1 Application TOP TID apply to skin lesions/rash on legs, arms, back 201708/25/2017 Inactive Lipitor 20 mg tablet RxNorm: 273786 TAKE ONE TABLET BY MOUTH DAILY AT BEDTIME 05/22/2017 05/16/2018 Active Generic For:LIPITOR 20MG 05/22/2017 9:16:26 AM triamterene 37.5 mg-hydrochlorothiazide 25 mg capsule RxNorm: 915326 TAKE 1 CAPSULE BY MOUTH DAILY 05/22/20172018 Active Generic For:DYAZIDE 37.5-25 05/22/2017 9:16:22 AM betamethasone valerate 0.1 % topical ointment RxNorm: 959877 1 Application TOP TID apply to skin lesions/rash on legs, arms, back 201706/19/2017 Inactive terazosin 2 mg capsule RxNorm: 466658 TAKE 1 CAPSULE BY MOUTH DAILY 02/19/2017 08/17/2017 Inactive 02/19/2017 11:33:02 AM clobetasol 0.05 % topical cream RxNorm: 886728 1 Application TOP daily as needed 01/17/2017 No Stop Date Active mupirocin 2 % topical cream RxNorm: 642130 1 Application TOP BID 01/16/2017 02/14/2017 Inactive terazosin 2 mg capsule RxNorm: 226171 1 Capsule(s) PO daily 02/18/2017 Inactive oxycodone 5 mg tablet RxNorm: 9443348 1 Tablet(s) PO BID 201610/10/2016 Inactive ceftriaxone 500 mg solution for injection RxNorm: 9412035 1 Milliliter(s) Inj 08/27/2016 08/27/2016 Inactive azithromycin 250 mg tablet RxNorm: 138038 1 Tablet(s) PO UD take two pills on day #1, then one pill daily x 4 days 08/27/2016 01/15/2017 Inactive Toprol XL 25 mg tablet,extended release RxNorm: 728467 1 Tablet(s) PO daily 08/26/2016 12/23/2016 Inactive oxycodone 5 mg tablet RxNorm: 1105844 1 Tablet(s) PO BID 201607/27/2016 Inactive Lipitor 20 mg tablet RxNorm: 940937 1 Tablet(s) QHS TAKE 1 TABLET BY MOUTH ONCE DAILY AT BEDTIME. 05/27/2016 05/21/2017 Inactive Generic For:LIPITOR 20MG 2014 11:51:16 AM N O T I C E PRESCRIPTION PREVIOUSLY AUTHORIZED BY DOCTOR: NICHOLE ESPANA triamterene 37.5 mg-hydrochlorothiazide 25 mg capsule RxNorm: 850930 1 Capsule(s) PO daily 05/27/2016 05/21/2017 Inactive terazosin 2 mg capsule RxNorm: 145411 1 Capsule(s) PO daily 08/19/2016 Inactive terazosin 2 mg capsule RxNorm: 883859 1 Capsule(s) PO daily 04/21/2016 Inactive terazosin 5 mg capsule RxNorm: 883418 1/2 Tablet(s) PO QPM 04/21/2016 Inactive Toprol XL 25 mg tablet,extended release RxNorm: 695950 1 Tablet(s) PO daily 04/16/2016 04/15/2016 Inactive Toprol XL 25 mg tablet,extended release RxNorm: 217817 1 Tablet(s) PO daily 04/16/2016 08/13/2016 Inactive pantoprazole 40 mg tablet,delayed release RxNorm: 368103 1 Tablet(s) PO daily 04/16/2016 04/15/2016 Inactive pantoprazole 40 mg tablet,delayed release RxNorm: 242680 1 Tablet(s) PO daily 04/16/2016 01/15/2017 Inactive Toprol XL 50 mg tablet,extended release RxNorm: 586101 1 Tablet(s) PO daily 02/28/2016 04/15/2016 Inactive terazosin 5 mg capsule RxNorm: 876500 1 Tablet(s) PO QPM 201504/18/2016 Inactive oxycodone 5 mg tablet RxNorm: 9287567 1 Tablet(s) PO UD 1/2 at 3pm, 1 pill at 9pm and may take up to 2 pills bid if needed. 01/03/2016 06/27/2016 Inactive Toprol XL 50 mg tablet,extended release RxNorm: 020673 1 Tablet(s) PO daily 11/15/2015 02/27/2016 Inactive terazosin 5 mg capsule RxNorm: 282870 1 Tablet(s) PO QPM 201501/01/2016 Inactive Lipitor 20 mg tablet RxNorm: 056195 1 Tablet(s) QHS TAKE 1 TABLET BY MOUTH ONCE DAILY AT BEDTIME. 06/01/2015 05/25/2016 Inactive Generic For:LIPITOR 20MG 2014 11:51:16 AM N O T I C E PRESCRIPTION PREVIOUSLY AUTHORIZED BY DOCTOR: NICHOLE ESPANA Kenalog 40 mg/mL suspension for injection RxNorm: 1977102 1 Milliliter(s) Inj 05/25/2015 05/25/2015 Inactive terazosin 5 mg capsule RxNorm: 166615 1 Tablet(s) PO QPM 201407/05/2015 Inactive Toprol XL 50 mg tablet,extended release RxNorm: 705063 1 Tablet(s) PO daily 05/04/2015 10/30/2015 Inactive terazosin 5 mg capsule RxNorm: 647281 1 Tablet(s) PO QPM 201405/03/2015 Inactive triamterene 37.5 mg-hydrochlorothiazide 25 mg capsule RxNorm: 275687 1 Capsule(s) PO daily 04/26/2015 05/26/2016 Inactive Voltaren 1 % topical gel RxNorm: 369188 4 Gram(s) TOP QID to knees 04/19/2015 07/17/2015 Inactive Lipitor 20 mg tablet RxNorm: 136840 Tablet(s) TAKE 1 TABLET BY MOUTH ONCE DAILY AT BEDTIME. 04/13/2015 05/31/2015 Inactive Generic For:LIPITOR 20MG 03/24/2015 11: 51:16 AM N O T I C E PRESCRIPTION PREVIOUSLY AUTHORIZED BY DOCTOR:NICHOLE ESPANA Lipitor 20 mg tablet RxNorm: 185135 TAKE 1 TABLET BY MOUTH ONCE DAILY AT BEDTIME. 03/24/2015 04/12/2015 Inactive Generic For:LIPITOR 20MG 03/24/2015 11:51:16 AM N O T I C E PRESCRIPTION PREVIOUSLY AUTHORIZED BY DOCTOR:NICHOLE ESPANA Lipitor 20 mg tablet RxNorm: 592968 TAKE 1 TABLET BY MOUTH ONCE DAILY AT BEDTIME. 03/24/2015 03/23/2015 Inactive Generic For:LIPITOR 20MG 03/24/2015 11:51:16 AM N O T I C E PRESCRIPTION PREVIOUSLY AUTHORIZED BY DOCTOR:NICHOLE ESPANA Lipitor 20 mg tablet RxNorm: 500396 1 Tablet(s) PO daily 201403/23/2015 Inactive Toprol XL 50 mg tablet,extended release RxNorm: 564625 1 Tablet(s) PO daily 03/08/2015 05/03/2015 Inactive Toprol XL 50 mg tablet,extended release RxNorm: 738065 1 Tablet(s) PO daily 03/08/2015 03/07/2015 Inactive Toprol XL 50 mg tablet,extended release RxNorm: 502181 1 Tablet(s) PO daily 03/07/2015 03/07/2015 Inactive triamterene 37.5 mg-hydrochlorothiazide 25 mg capsule RxNorm: 506555 1 Capsule(s) PO daily 01/26/2015 04/25/2015 Inactive Hytrin 5 mg tablet RxNorm: 268335 1 Tablet(s) PO QPM 201403/25/2015 Inactive triamterene 37.5 mg-hydrochlorothiazide 25 mg capsule RxNorm: 890619 1 Capsule(s) PO daily 01/25/2015 01/25/2015 Inactive Voltaren 1 % topical gel RxNorm: 422254 4 Gram(s) TOP QID to knees 11/23/2014 02/20/2015 Inactive aspirin 81 mg chewable tablet RxNorm: 120046 1 Tablet(s) PO daily 09/20/2014 12/02/2017 Inactive azithromycin 250 mg tablet RxNorm: 993636 2 Tablet(s) PO on day #1, then 1 pill on days #2-5 09/20/2014 04/02/2015 Inactive [SAVINGS FOR NON-COVERED DRUGS -- BIN: 205444, PCN: [id number], Group: XXXXX, ID# XXXXXXX, Questions: . 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 THIS IS NOT INSURANCE.] Vitamin D3 1,000 unit capsule RxNorm: 453094 1 Capsule(s) PO daily 09/20/2014 08/27/2016 Inactive fish oil-dha-epa 1,200 mg-144 mg-216 mg capsule RxNorm: 1 Capsule(s) PO daily 09/20/2014 08/27/2016 Inactive Lipitor 20 mg tablet RxNorm: 064619 1 Tablet(s) PO daily 201403/23/2015 Inactive naproxen sodium 220 mg tablet RxNorm: 751571 1 Tablet(s) PO BID as needed for pain 09/20/2014 01/02/2016 Inactive penicillin V potassium 500 mg tablet RxNorm: 733780 1 Tablet(s) PO daily - Prescribed by Dr. Adam No Start Date Active Fish Oil 360 mg-1,200 mg capsule RxNorm: 782547 1 Capsule(s) PO daily No Start Date Active Vitamin D3 2,000 unit tablet RxNorm: 089153 1 Tablet(s) PO daily No Start Date Active naproxen 250 mg tablet RxNorm: 699599 Tablet(s) PO BID as needed No Start Date Active Stool Softener 100 mg capsule RxNorm: 9108190 1 Capsule(s) PO BID No Start Date Active Probiotic oral RxNorm : 6205 oral No Start Date Active Vitamin C 1,000 mg tablet RxNorm: 883313 1 Tablet(s) PO daily No Start Date Active rifampin 150 mg capsule RxNorm: 779656 1 Capsule(s) PO daily No Start Date 08/26/2016 Inactive calcium carbonate 550 mg chewable tablet RxNorm: 803302 1 Tablet(s) PO QID as needed No Start Date 08/26/2016 Inactive clobetasol 0.05 % topical cream RxNorm: 222850 1 Application TOP daily as needed No Start Date 01/16/2017 Inactive Medication Administered Medication Codes Instructions Start Date Status ceftriaxone 500 mg solution for injection RxNorm: 8479063 1Milliliter 08/27/2016 No longer Active Kenalog 40 mg/mL suspension for injection RxNorm: 8569841 1Milliliter 05/25/2015 No longer Active Immunizations Vaccine [...] 14.7 g/dl 10/03/2017 Cbc With Differential Ord2 Neut% 63.7 % 10/03/2017 Cbc With Differential Ord2 HCT 44.0 % 10/03/2017 Cbc With Differential Ord2 MCV 93.2 fl 10/03/2017 Cbc With Differential Ord2 Lymph% 20.5 % 10/03/2017 Cbc With Differential Ord2 MCH 31.1 pg 10/03/2017 Cbc With Differential Ord2 Barron% 10.4 % 10/03/2017 Cbc With Differential Ord2 [...] 1.44 K/ul 10/03/2017 Cbc With Differential Ord2 Barron ABS# 0.7 K/ul 10/03/2017 Cbc With Differential Ord2 Eos ABS# 0.3 K/ul 10/03/2017 Cbc With Differential Ord2 Baso ABS# 0.1 K/ul 10/03/2017 %Hba1C Idk330 % HbA1c 92845-6 6.6 % 10/03/2017 %Hba1C Ymf803 Gluc Ave 143 mg/dL 10/03/2017 Uric Acid [...] Metabolic Ord15 CALCIUM 9.4 mg/dL 09/23/2017 %Hba1C Xot175 % HbA1c 50876-9 6.6 % 05/21/2017 %Hba1C Sgk046 Gluc Ave 143 mg/dL 05/21/2017 Comp Metabolic Qiy419 NA 138 mEq/L 05/21/2017 Comp Metabolic Axg905 K 3.8 mEq/L 05/21/2017 Comp Metabolic Ict669 CL 99 mEq/L 05/21/2017 Comp Metabolic Hdx113 CO2 31.0 mEq/L 05/21/2017 Comp Metabolic Odk037 ANION GAP 12 05/21/2017 Comp Metabolic Osf286 GLUCOSE 93 mg/dL 05/21/2017 Comp Metabolic Dzo883 Creat 0.8 mg/dL 05/21/2017 Comp Metabolic Rxj189 eGFR 102 ml/min/1.73m2 05/21/2017 Comp Metabolic Ijf952 BUN 13 mg/dL 05/21/2017 Comp Metabolic Jyp519 B/C Ratio 16.7 Ratio 05/21/2017 Comp Metabolic Sxu093 CALCIUM 9.9 mg/dL 05/21/2017 Comp Metabolic Tad633 ALK PHOS 99 U/L 05/21/2017 Comp Metabolic Cco964 AST(SGOT) 18 U/L 05/21/2017 Comp Metabolic Mja447 ALT(SGPT) 29 U/L 05/21/2017 Comp Metabolic Uaq306 BILI T 0.7 mg/dL 05/21/2017 Comp Metabolic Kmm219 ALBUMIN 4.1 g/dL 05/21/2017 Comp Metabolic Zio169 TPRO 6.6 g/dL 05/21/2017 Comp Metabolic Mmr902 GLOB 2.6 g/dL 05/21/2017 Comp Metabolic Qud601 A/G Ratio 1.6 Ratio 05/21/2017 Comp Metabolic Adm572 Osmo 275 mOsmo 05/21/2017 Tsh Ord6 hTSH II 1.34 uIU/mL 05/21/2017 %Hba1C Npx338 % HbA1c 59412-4 6.4 % 10/04/2015 %Hba1C Abd393 Gluc Ave 137 mg/dL 10/04/2015 Comp Metabolic Dng954 NA 139 mEq/L 10/04/2015 Comp Metabolic Qzi349 K 3.8 mEq/L 10/04/2015 Comp Metabolic Dpj544 CL 104 mEq/L 10/04/2015 Comp Metabolic Hpi017 CO2 32.0 mEq/L 10/04/2015 Comp Metabolic Wue279 ANION GAP 7 10/04/2015 Comp Metabolic Rsc685 GLUCOSE 112 mg/dL 10/04/2015 Comp Metabolic Vuw667 Creat 0.8 mg/dL 10/04/2015 Comp Metabolic Uwm139 eGFR 102 ml/min/1.73m2 10/04/2015 Comp Metabolic Jez606 BUN 16 mg/dL 10/04/2015 Comp Metabolic Ukx503 B/C Ratio 20.5 Ratio 10/04/2015 Comp Metabolic Ooe065 CALCIUM 9.3 mg/dL 10/04/2015 Comp Metabolic Qip000 ALK PHOS 87 U/L 10/04/2015 Comp Metabolic Mdm260 AST(SGOT) 17 U/L 10/04/2015 Comp Metabolic Zma492 ALT(SGPT) 24 U/L 10/04/2015 Comp Metabolic Nuo852 BILI T 0.6 mg/dL 10/04/2015 Comp Metabolic Tov640 ALBUMIN 4.0 g/dL 10/04/2015 Comp Metabolic Vfy301 TPRO 6.3 g/dL 10/04/2015 Comp Metabolic Alz682 GLOB 2.3 g/dL 10/04/2015 Comp Metabolic Dow586 A/G Ratio 1.7 Ratio 10/04/2015 Comp Metabolic Elf861 Osmo 279 mOsmo 10/04/2015 Lipid Ord30 CHOL [...] 22.2 % 10/04/2015 Cbc With Differential Ord2 Barron% 9.1 % 10/04/2015 Cbc With Differential Ord2 MCH 31.3 pg 10/04/2015 Cbc With Differential Ord2 Eos% 6.7 % 10/04/2015 Cbc With Differential Ord2 MCHC 33.1 pg 10/04/2015 Cbc With Differential Ord2 Baso% 1.2 % 10/04/2015 Cbc With Differential Ord2 PLT 224 K/ul 10/04/2015 Cbc With Differential Ord2 RDW 12.9 % 10/04/2015 Cbc With Differential Ord2 Neut ABS# 4.00 K/ul 10/04/2015 Cbc With Differential Ord2 Lymph ABS# 1.46 K/ul 10/04/2015 Cbc With Differential Ord2 Barron ABS# 0.6 K/ul 10/04/2015 Cbc With Differential Ord2 Eos ABS# 0.4 K/ul 10/04/2015 Cbc With Differential Ord2 Baso ABS# 0.1 K/ul 10/04/2015 %Hba1C Ksl441 % HbA1c 81450-5 6.5 % 11/24/2014 %Hba1C Hcn412 Gluc Ave 140 mg/dL 11/24/2014 Lipid Ord30 CHOL 121 mg/dL 11/23/2014 Lipid Ord30 HDL 37.0 mg/dl 11/23/2014 Lipid Ord30 TRIG 93 mg/dL 11/23/2014 Lipid Ord30 LDL 65 mg/dL 11/23/2014 Lipid Ord30 C/HDL 3.3 Ratio 11/23/2014 Comp Metabolic Njc779 NA 135 mEq/L 11/23/2014 Comp Metabolic Vlm906 K 3.7 mEq/L 11/23/2014 Comp Metabolic Jib708 CL 101 mEq/L 11/23/2014 Comp Metabolic Iyi152 CO2 28.0 mEq/L 11/23/2014 Comp Metabolic Wnn605 ANION GAP 10 11/23/2014 Comp Metabolic Uin399 GLUCOSE 104 mg/dL 11/23/2014 Comp Metabolic Erg263 Creat 0.8 mg/dL 11/23/2014 Comp Metabolic Jez587 eGFR 104 ml/min/1.73m2 11/23/2014 Comp Metabolic Key815 BUN 10 mg/dL 11/23/2014 Comp Metabolic Wsf341 B/C Ratio 13.0 Ratio 11/23/2014 Comp Metabolic Ins767 CALCIUM 9.7 mg/dL 11/23/2014 Comp Metabolic Iog178 ALK PHOS 92 U/L 11/23/2014 Comp Metabolic Ilg835 AST(SGOT) 17 U/L 11/23/2014 Comp Metabolic Nwq394 ALT(SGPT) 26 U/L 11/23/2014 Comp Metabolic Ufg188 BILI T 1.1 mg/dL 11/23/2014 Comp Metabolic Pqk167 ALBUMIN 4.1 g/dL 11/23/2014 Comp Metabolic Gtb232 TPRO 6.3 g/dL 11/23/2014 Comp Metabolic Ijs996 GLOB 2.2 g/dL 11/23/2014 Comp Metabolic Cnl636 A/G Ratio 1.9 Ratio 11/23/2014 Comp Metabolic Lua966 Osmo 269 mOsmo 11/23/2014 Cbc With Differential [...] clear 01/16/2017 None Full Exam - General 1995 Ears/Nose/Throat lips/teeth/gingiva Overall: benign lips 01/16/2017 None Full Exam - General 1994 Ears/Nose/Throat lips/teeth/gingiva Overall: normal dentition 01/16/2017 None Full Exam - General 1994 Ears/Nose/Throat oral cavity/pharynx/larynx Overall: oral mucosa clear 01/16/2017 None Full Exam - General 1995 Ears/Nose/Throat [...] General 1995 Ears/Nose/Throat lips/teeth/gingiva Overall: benign lips 05/30/2016 None [...] MG CPT-4: J0696 08/27/2016 DRAIN/INJECT JOINT/BURSA CPT-4: 35128 05/25/2015 TRIAMCINOLONE ACET INJ NOS CPT-4: J3301 05/25/2015 TRIAMCINOLONE ACET INJ NOS CPT-4: J3301 09/20/2014 ROCEPHIN, PER 250 MG CPT-4: J0696 09/20/2014 THER/PROPH/DIAG INJ SC/IM CPT-4: 76121 09/20/2014 Vital Signs Date Vital 02/18/2018 Blood Pressure 1: 128/72 Code : 8480-6 BMI: 31.5 Code : 36884-8 Heart Rate 1 : 68 bpm Height: 5'9" SpO2: 97% Weight: 213 lbs 10/06/2017 Blood Pressure 1: 134/70 Code : 8480-6 BMI: 31.5 Code : 80974-8 Heart Rate 1 : 65 bpm Height: 5'9" SpO2: 97% Weight: 213 lbs 06/23/2017 Blood Pressure 1: 136/72 Code : 8480-6 BMI: 31.5 Code : 61172-9 Heart Rate 1 : 64 bpm Height: 5'9" SpO2: 93% Weight: 213 lbs 05/21/2017 Blood Pressure 1: 118/80 Code : 8480-6 BMI: 32.2 Code : 22228-6 Heart Rate 1 : 76 bpm Height: 5'9" SpO2: 98% Weight: 218 lbs 01/16/2017 Blood Pressure 1: 132/78 Code : 8480-6 BMI: 31.0 Code : 94440-4 Heart Rate 1 : 63 bpm Height: 5'9" SpO2: 98% Weight: 210 lbs 08/27/2016 Blood Pressure 1: 128/72 Code : 8480-6 BMI: 30.4 Code : 05380-8 Heart Rate 1 : 69 bpm Height: 5'9" SpO2: 95% Temperature: 37.1 (C) / 98.7 (F) Weight: 206 lbs 05/30/2016 Blood Pressure 1: 136/64 Code : 8480-6 BMI: 30.7 Code : 42170-5 Heart Rate 1 : 77 bpm Height: 5'9" SpO2: 94% Weight: 208 lbs 04/19/2016 Blood Pressure 1: 108/68 Code : 8480-6 BMI: 28.8 Code : 43369-8 Height: 5'9" SpO2: 97% Weight: 195 lbs 01/03/2016 Blood Pressure 1: 120/70 Code : 8480-6 BMI: 31.0 Code : 42891-8 Heart Rate 1 : 81 bpm Height: 5'9" SpO2: 98% Weight: 210 lbs 10/03/2015 Blood Pressure 1: 128/68 Code : 8480-6 BMI: 31.7 Code : 10308-2 Heart Rate 1 : 60 bpm Height: 5'9" SpO2: 97% Weight: 215 lbs 05/25/2015 Blood Pressure 1: 138/84 Code : 8480-6 BMI: 32.6 Code : 14468-3 Heart Rate 1 : 60 bpm Height: 5'9" SpO2: 96% Weight: 221 lbs 04/03/2015 Blood Pressure 1: 142/74 Code : 8480-6 Blood Pressure 1: 136/70 Code: 8480-6 BMI: 32.5 Code: 87620-2 Heart Rate 1: 59 bpm Height: 5'9" SpO2: 94% Weight: 220 lbs 11/23/2014 Blood Pressure 1: 138/72 Code : 8480-6 BMI: 32.0 Code : 31615-9 Heart Rate 1 : 61 bpm Height: [...] Directive data Encounters Encounter Performer Location Codes ([id number]) 77631 EST. PATIENT, LEVEL IV Diagnosis: Type 2 diabetes mellitus without complications[ICD10: E11.9] Diagnosis: Essential (primary) hypertension[ICD10: I10] Diagnosis: Mixed hyperlipidemia[ICD10: E78.2] Andreina Hoffmann MD, [facility] CPT-4: 53955 02/18/2018 ([id number]) 39460 EST. PATIENT, LEVEL IV Diagnosis: Essential (primary) hypertension[ICD10: I10] Diagnosis: Type 2 diabetes mellitus without complications[ICD10: E11.9] Diagnosis: Mixed hyperlipidemia[ICD10: E78.2] Andreina Hoffmann MD, [facility] CPT-4: 69386 10/06/2017 ([id number]) 16708 EST. PATIENT, LEVEL III Diagnosis: Rash and other nonspecific skin eruption[ICD10: R21] Andreina Hoffmann MD [facility] CPT-4: 29014 06/23/2017 ([id number]) 18996 EST. PATIENT, LEVEL IV Diagnosis: Essential (primary) hypertension[ICD10: I10] Diagnosis: Other abnormal glucose[ICD10: R73.09] Diagnosis: Rash and other nonspecific skin eruption[ICD10: R21] Diagnosis: Pain in right knee[ICD10: M25.561] Diagnosis: Impaired fasting glucose[ICD10: R73.01] Andreina Hoffmann MD, [facility] CPT-4: 03023 05/21/2017 ([id number]) 47265 EST. PATIENT, LEVEL IV Diagnosis: Essential (primary) hypertension[ICD10: I10] Diagnosis: Pain in right knee[ICD10: M25.561] Diagnosis: Rash and other nonspecific skin eruption[ICD10: R21] Diagnosis: Other abnormal glucose[ICD10: R73.09] Diagnosis: Mixed hyperlipidemia[ICD10: E78.2] Andreina Hoffmann MD, [facility] CPT-4: 30197 01/16/2017 ([id number]) 18353 EST. PATIENT, LEVEL IV Diagnosis: Essential (primary) hypertension[ICD10: I10] Diagnosis: Acute recurrent maxillary sinusitis[ICD10: J01.01] Andreina Hoffmann MD, [facility] CPT-4: 29532 08/27/2016 ([id number]) 99023 EST. PATIENT, LEVEL IV Diagnosis: Essential (primary) hypertension[ICD10: I10] Diagnosis: Pain in right knee[ICD10: M25.561] Diagnosis: Pain in left knee[ICD10: M25.562] Andreina Hoffmann MD, [facility] CPT-4: 41806 05/30/2016 ([id number]) 10036 EST. PATIENT, LEVEL III Diagnosis: Essential (primary) hypertension[ICD10: I10] Diagnosis: Pain in right knee[ICD10: M25.561] Gisel Hoffmann MD, [facility] CPT-4: 81320 04/19/2016 ([id number]) 44442 EST. PATIENT, LEVEL IV Diagnosis: Essential (primary) hypertension[ICD10: I10] Diagnosis: Mixed hyperlipidemia[ICD10: E78.2] Diagnosis: Pain in right knee[ICD10: M25.561] Andreina Hoffmann MD, [facility] CPT-4: 44406 01/03/2016 ([id number]) 57532 EST. PATIENT, LEVEL IV Diagnosis: Essential (primary) hypertension[ICD10: I10] Diagnosis: Mixed hyperlipidemia[ICD10: E78.2] Diagnosis: Hyperglycemia, unspecified[ICD10: R73.9] Andreina Hoffmann MD, [facility] CPT-4: 70995 10/03/2015 46179 EST. PATIENT, LEVEL IV Diagnosis: Pain in right knee[ICD10: M25.561] Tiffany Hoffmann MD, [facility] CPT-4: 21598 05/25/2015 ([id number]) 26754 EST. PATIENT, LEVEL III Diagnosis: Essential (primary) hypertension[ICD10: I10] Diagnosis: Changes in skin texture[ICD10: R23.4] Andreina Hoffmann MD, [facility] CPT-4: 84686 04/03/2015 ([id number]) 62672 EST. PATIENT, LEVEL IV Diagnosis: ESSENTIAL HYPERTENSION[ICD9: 401.9] Diagnosis: DIABETES TYPE II[ICD9: 250.00] Diagnosis: HYPERLIPIDEMIA[ICD9: 272.4] Diagnosis: OSTEOARTH NOS-UNSPEC[ICD9: 715.90] Andreina Hoffmann MD, [facility] CPT-4: 11205 11/23/2014 ([id number]) OFFICE VISIT, NEW - LEVEL 3 Diagnosis: ACUTE BRONCHITIS[ICD9: 466.0] Diagnosis: Dyspnea[ICD9: 786.09] Diagnosis: Sinusitis[ICD9: 473.9] Diagnosis: ACUTE MAXILLARY SINUSITIS[ICD9: 461.0] [facility] CPT-4: 75383 09/20/2014 Plan of Care Planned Activity Notes [...] to medications. 02/18/2018 Appointment: Andreina Hoffmann WPtel: [phone] [facility] [place] (15 min) Moderate 02/18/2018 Patient Education: Patient Medication Summary Completed 02/18/2018 Patient Education: Diabetes Completed 02/18/2018 Appointment: Margie Hoffmanny WPtel: [phone] [facility] (15 min) Moderate 02/09/2018 Visit Plan: Hypertension [...] normal liver response to medications. 10/06/2017 Appointment: TahiraAndreina WPtel: [phone] [facility] [place] (15 min) Moderate 10/06/2017 Patient Education: [...] improved. 06/23/2017 [facility]ment[phone] ([facility] min) Moderate 06/23/2017 Patient Education: Patient Medication Summary Completed 06/23/2017 Appointment: [phone] (15 min) Moderate 06/10/2017 Visit Plan: rash [...] intermittently - refill provided today. 05/21/2017 Appointment: Tahira Andre[phone] (15 min) Moderate 05/21/2017 Patient Education: Patient [...] provided today. 01/16/2017 Appointment: Andreina Hoffmann WPtel: [address] [place], [place] [phone] (15 min) Moderate 01/16/2017 Patient Education: Patient Medication Summary Completed 01/16/2017 Appointment: Andreina Hoffmann WPtel: [facility] (15 min) Moderate 12/30/2016 Visit Plan: Hypertension [...] - 08/27/2016 Appointment: Andreina Hoffmann WPtel: [phone] [phone] (15 min) Moderate 08/27/2016 Patient Education: Patient [...] for oxycodone 05/30/2016 Appointment: [id number] (15 min) Moderate 05/30/2016 Patient Education: Patient Medication Summary Completed 05/30/2016 Patient Education: Obesity Completed 05/30/2016 Appointment: Gisel Titus WPtel: [phone] [phone] (30 min) Complex 05/24/2016 Visit Plan: Hypertension [...] Dr Galdamez-on IV abx-sees infection control at [facility] 04/19/2016 App[facility]ment: [phone] [place] (30 min) Complex 04/19/2016 Patient Education: Patient Medication Summary Completed 04/19/2016 Patient Education: Hypertension Completed 04/19/2016 [facility]ment: [phone] [id number] [place] (15 min) Moderate 04/03/2016 Visit Plan: [...] Medication Summary Completed 05/25/2015 Referral: Demetrius Cedeno WPtel:[phone] Referral Completed 04/19/2015 Visit Plan: Hypertension - [...] surgeons. 04/03/2015 Appointment: [phone] [facility] [id number] (15 min) Moderate 04/03/2015 Patient Education: Patient Medication Summary Completed 04/03/2015 Patient Education: Hypertension Completed 04/03/2015 Care Plan: Referral Order SNOMED-CT : [id number] Ordered 04/03/2015 Visit Plan: Hypertension - well [...] labs. 11/23/2014 Appointment: [phone] [place] [place] New Patient 11/23/2014 Patient Education: [...] if symptoms acutely worsen. rocephin shot - [id number] exp 12/03/14 1ML 500mg apotec kenalog [id number] exp may 2016bristol fagan squibb 09/20/2014 Patient Education: Patient Medication Summary Completed 09/20/2014 Referral: Demetrius Cedeno WPtel:[phone] Referral Appointment Requested Instructions Comment Dr. Cedeno [...] Dr Galdamez-on IV abx-sees infection control at [facility] . Hypertension - well controlled - continue [...] if symptoms acutely worsen. rocephin shot - [id number] exp 12/03/14 1ML 500mg apotec kenalog [id number] exp [facility] 2016[facility] coconut oil start taking a probiotic - like [employer] or [employer] - this will help to decrease the [...]
[2018-08-26] MEDS ORDERED: LACTATED RINGERS 1,000 ML IV PRN (06:41)
--- OUTSIDE RECORDS SUMMARY | 2018-08-26 06:41 | XMS REPORT | CCD ---
Author Author Andreina Hoffmann Organization [facility] Address [address] [place] [address] Phone Care Team Providers Care Sports Activities Foul Judge Name Role Phone PP Unavailable CCM Unavailable Summary Purpose Interface Exchange Insurance Providers Payer name Policy type / Coverage type Covered green party ID Effective Begin Date Effective End Date Blue Cross Blue Shield [facility] Blue Cross/Blue Shield [id number] Unknown Unknown WPS Medicare Part B Blue Cross/Blue Shield [id number] Unknown Unknown Family history Father Diagnosis Age [...] 6 adopted 11/23/[address]: 0539212 Former smoker 1970- quit 11/23/2014 Alcohol history Unknown occasionally drinks alcohol 11/23/2014 Living arrangements Unknown House 09/20/2014 Employment Unknown 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 [employer] 09/20/2014 Allergies, Adverse Reactions, Alerts Allergies, Adverse Reactions, Alerts data not found Past Medical History Illness Codes Condition Status Onset Date Resolved Date Essential (primary) hypertension ICD-9: 401.1 ICD-10: I10 Active 05/30/2016 Unknown Impaired fasting glucose ICD-9: 790.21 ICD-10: R73.01 Active 05/21/2017 Unknown Other abnormal glucose ICD-9: 790.29 ICD-10: R73.09 Active 01/16/2017 Unknown Pain in right knee ICD -9: 719.46 ICD-10: M25.561 Active 04/18/2016 Unknown Rash and other nonspecific skin eruption ICD-9: 782.1 ICD-10: R21 Active 01/16/2017 Unknown Hyperglycemia, unspecified ICD-9: 790.29 ICD-10: R73.9 Active 10/02/2015 Unknown Mixed hyperlipidemia ICD-9: 272.4 ICD-10: E78.2 Active 11/22/2014 Unknown Acute recurrent maxillary sinusitis ICD-9: 461.0 [...] hypertension ICD-9: 401.1 ICD-10: I10 05/30/2016 Active Impaired fasting glucose ICD-9: 790.21 ICD-10: R73.01 05/21/2017 Active Other abnormal glucose ICD-9: 790.29 ICD-10: R73.09 01/16/2017 Active Pain in right knee ICD -9: 719.46 ICD-10: M25.561 04/18/2016 Active Rash and other nonspecific skin eruption ICD-9: 782.1 ICD-10: R21 01/16/2017 Active Hyperglycemia, unspecified ICD-9: 790.29 ICD-10: R73.9 10/02/2015 Active Mixed hyperlipidemia ICD-9: 272.4 ICD-10: E78.2 11/22/2014 Active Acute recurrent maxillary sinusitis ICD-9: 461.0 [...] Fill Instructions Lipitor 20 mg tablet RxNorm: 648696 TAKE ONE TABLET BY MOUTH DAILY AT BEDTIME 05/22/2017 05/16/2018 Active Generic For:LIPITOR 20MG 05/22/2017 9:16:26 AM triamterene 37.5 mg-hydrochlorothiazide 25 mg capsule RxNorm: 956176 TAKE 1 CAPSULE BY MOUTH DAILY 05/22/20172018 Active Generic For:DYAZIDE 37.5-25 05/22/2017 9:16:22 AM betamethasone valerate 0.1 % topical ointment RxNorm: 646375 1 Application TOP TID apply to skin lesions/rash on legs, arms, back 201706/19/2017 Active terazosin 2 mg capsule RxNorm: 697766 TAKE 1 CAPSULE BY MOUTH DAILY 02/19/2017 08/17/2017 Active 02/19/2017 11:33:02 AM clobetasol 0.05 % topical cream RxNorm: 479292 1 Application TOP daily as needed 01/17/2017 No Stop Date Active mupirocin 2 % topical cream RxNorm: 433428 1 Application TOP BID 01/16/2017 02/14/2017 Inactive oxycodone 5 mg tablet RxNorm: 6231641 1 Tablet(s) PO BID 201610/10/2016 Inactive terazosin 2 mg capsule RxNorm: 955776 1 Capsule(s) PO daily 02/18/2017 Inactive ceftriaxone 500 mg solution for injection RxNorm: 0752741 1 Milliliter(s) Inj 08/27/2016 08/27/2016 Inactive azithromycin 250 mg tablet RxNorm: 528281 1 Tablet(s) PO UD take two pills on day #1, then one pill daily x 4 days 08/27/2016 01/15/2017 Inactive Toprol XL 25 mg tablet,extended release RxNorm: 054287 1 Tablet(s) PO daily 08/26/2016 12/23/2016 Inactive oxycodone 5 mg tablet RxNorm: 8341917 1 Tablet(s) PO BID 201607/27/2016 Inactive Lipitor 20 mg tablet RxNorm: 705130 1 Tablet(s) QHS TAKE 1 TABLET BY MOUTH ONCE DAILY AT BEDTIME. 05/27/2016 05/21/2017 Inactive Generic For:LIPITOR 20MG 2014 11:51:16 AM N O T I C E PRESCRIPTION PREVIOUSLY AUTHORIZED BY DOCTOR: NICHOLE ESPANA triamterene 37.5 mg-hydrochlorothiazide 25 mg capsule RxNorm: 148778 1 Capsule(s) PO daily 05/27/2016 05/21/2017 Inactive terazosin 2 mg capsule RxNorm: 696019 1 Capsule(s) PO daily 08/19/2016 Inactive terazosin 2 mg capsule RxNorm: 396521 1 Capsule(s) PO daily 04/21/2016 Inactive terazosin 5 mg capsule RxNorm: 807000 1/2 Tablet(s) PO QPM 04/21/2016 Inactive Toprol XL 25 mg tablet,extended release RxNorm: 034189 1 Tablet(s) PO daily 04/16/2016 04/15/2016 Inactive Toprol XL 25 mg tablet,extended release RxNorm: 597641 1 Tablet(s) PO daily 04/16/2016 08/13/2016 Inactive pantoprazole 40 mg tablet,delayed release RxNorm: 984348 1 Tablet(s) PO daily 04/16/2016 04/15/2016 Inactive pantoprazole 40 mg tablet,delayed release RxNorm: 570427 1 Tablet(s) PO daily 04/16/2016 01/15/2017 Inactive Toprol XL 50 mg tablet,extended release RxNorm: 175966 1 Tablet(s) PO daily 02/28/2016 04/15/2016 Inactive terazosin 5 mg capsule RxNorm: 342487 1 Tablet(s) PO QPM 201504/18/2016 Inactive oxycodone 5 mg tablet RxNorm: 1131407 1 Tablet(s) PO UD 1/2 at 3pm, 1 pill at 9pm and may take up to 2 pills bid if needed. 01/03/2016 06/27/2016 Inactive Toprol XL 50 mg tablet,extended release RxNorm: 327015 1 Tablet(s) PO daily 11/15/2015 02/27/2016 Inactive terazosin 5 mg capsule RxNorm: 463126 1 Tablet(s) PO QPM 201501/01/2016 Inactive Lipitor 20 mg tablet RxNorm: 525381 1 Tablet(s) QHS TAKE 1 TABLET BY MOUTH ONCE DAILY AT BEDTIME. 06/01/2015 05/25/2016 Inactive Generic For:LIPITOR 20MG 2014 11:51:16 AM N O T I C E PRESCRIPTION PREVIOUSLY AUTHORIZED BY DOCTOR: NICHOLE ESPANA Kenalog 40 mg/mL suspension for injection RxNorm: 3939543 1 Milliliter(s) Inj 05/25/2015 05/25/2015 Inactive terazosin 5 mg capsule RxNorm: 263913 1 Tablet(s) PO QPM 201407/05/2015 Inactive Toprol XL 50 mg tablet,extended release RxNorm: 221387 1 Tablet(s) PO daily 05/04/2015 10/30/2015 Inactive terazosin 5 mg capsule RxNorm: 061614 1 Tablet(s) PO QPM 201405/03/2015 Inactive triamterene 37.5 mg-hydrochlorothiazide 25 mg capsule RxNorm: 742705 1 Capsule(s) PO daily 04/26/2015 05/26/2016 Inactive Voltaren 1 % topical gel RxNorm: 045944 4 Gram(s) TOP QID to knees 04/19/2015 07/17/2015 Inactive Lipitor 20 mg tablet RxNorm: 445958 Tablet(s) TAKE 1 TABLET BY MOUTH ONCE DAILY AT BEDTIME. 04/13/2015 05/31/2015 Inactive Generic For:LIPITOR 20MG 03/24/2015 11: 51:16 AM N O T I C E PRESCRIPTION PREVIOUSLY AUTHORIZED BY DOCTOR:NICHOLE ESPANA Lipitor 20 mg tablet RxNorm: 207908 TAKE 1 TABLET BY MOUTH ONCE DAILY AT BEDTIME. 03/24/2015 04/12/2015 Inactive Generic For:LIPITOR 20MG 03/24/2015 11:51:16 AM N O T I C E PRESCRIPTION PREVIOUSLY AUTHORIZED BY DOCTOR:NICHOLE ESPANA Lipitor 20 mg tablet RxNorm: 531819 TAKE 1 TABLET BY MOUTH ONCE DAILY AT BEDTIME. 03/24/2015 03/23/2015 Inactive Generic For:LIPITOR 20MG 03/24/2015 11:51:16 AM N O T I C E PRESCRIPTION PREVIOUSLY AUTHORIZED BY DOCTOR:NICHOLE ESPANA Lipitor 20 mg tablet RxNorm: 497053 1 Tablet(s) PO daily 201403/23/2015 Inactive Toprol XL 50 mg tablet,extended release RxNorm: 937515 1 Tablet(s) PO daily 03/08/2015 05/03/2015 Inactive Toprol XL 50 mg tablet,extended release RxNorm: 448667 1 Tablet(s) PO daily 03/08/2015 03/07/2015 Inactive Toprol XL 50 mg tablet,extended release RxNorm: 036320 1 Tablet(s) PO daily 03/07/2015 03/07/2015 Inactive triamterene 37.5 mg-hydrochlorothiazide 25 mg capsule RxNorm: 077314 1 Capsule(s) PO daily 01/26/2015 04/25/2015 Inactive Hytrin 5 mg tablet RxNorm: 350661 1 Tablet(s) PO QPM 201403/25/2015 Inactive triamterene 37.5 mg-hydrochlorothiazide 25 mg capsule RxNorm: 358777 1 Capsule(s) PO daily 01/25/2015 01/25/2015 Inactive Voltaren 1 % topical gel RxNorm: 167102 4 Gram(s) TOP QID to knees 11/23/2014 02/20/2015 Inactive aspirin 81 mg chewable tablet RxNorm: 799855 1 Tablet(s) PO daily 09/20/2014 12/02/2017 Active azithromycin 250 mg tablet RxNorm: 642231 2 Tablet(s) PO on day #1, then 1 pill on days #2-5 09/20/2014 04/02/2015 Inactive [SAVINGS FOR NON-COVERED DRUGS -- BIN: 198989, PCN: [id number], Group: XXXXX, ID# XXXXXXX, Questions: . THIS IS NOT INSURANCE.] triamterene 37.5 mg-hydrochlorothiazide 25 mg capsule RxNorm: 623946 1 Capsule(s) PO daily 09/20/2014 01/24/2015 Inactive Keflex 500 mg capsule RxNorm: 579992 1 Capsule(s) PO TID 201409/26/2014 Inactive PLEASE CALL PT TO LET HIM KNOW THAT THE ANTIBIOTICS ARE READY FOR COLOR SPRAYER - START ON 09/21/14 Hytrin 5 mg tablet RxNorm: 384927 1 Tablet(s) PO QPM 201401/24/2015 Inactive Vitamin C 500 mg chewable tablet RxNorm: 689336 1 Tablet(s) PO daily 09/20/2014 08/27/2016 Inactive Toprol XL 50 mg tablet,extended release RxNorm: 158602 1 Tablet(s) PO daily 09/20/2014 03/06/2015 Inactive prednisone 20 mg tablet RxNorm: 255188 3 Tablet(s) PO daily 09/24/2014 Inactive [SAVINGS FOR NON-COVERED DRUGS -- BIN:[id number], PCN: ASPROD1, Group: XXXXX, ID# [id number], Questions: . THIS IS NOT INSURANCE.] Vitamin D3 1,000 unit capsule RxNorm: 843984 1 Capsule(s) PO daily 09/20/2014 08/27/2016 Inactive fish oil-dha-epa 1,200 mg-144 mg-216 mg capsule RxNorm: 1 Capsule(s) PO daily 09/20/2014 08/27/2016 Inactive Lipitor 20 mg tablet RxNorm: 257795 1 Tablet(s) PO daily 201403/23/2015 Inactive naproxen sodium 220 mg tablet RxNorm: 462780 1 Tablet(s) PO BID as needed for pain 09/20/2014 01/02/2016 Inactive penicillin V potassium 500 mg tablet RxNorm: 751702 1 Tablet(s) PO daily - Prescribed by Dr. Adam No Start Date Active Fish Oil 360 mg-1,200 mg capsule RxNorm: 201303 1 Capsule(s) PO daily No Start Date Active Vitamin D3 2,000 unit tablet RxNorm: 006509 1 Tablet(s) PO daily No Start Date Active naproxen 250 mg tablet RxNorm: 830779 Tablet(s) PO BID as needed No Start Date Active Stool Softener 100 mg capsule RxNorm: 4720961 1 Capsule(s) PO BID No Start Date Active Probiotic oral RxNorm : 6205 oral No Start Date Active Vitamin C 1,000 mg tablet RxNorm: 925192 1 Tablet(s) PO daily No Start Date Active rifampin 150 mg capsule RxNorm: 435594 1 Capsule(s) PO daily No Start Date 08/26/2016 Inactive calcium carbonate 550 mg chewable tablet RxNorm: 787248 1 Tablet(s) PO QID as needed No Start Date 08/26/2016 Inactive clobetasol 0.05 % topical cream RxNorm: 609128 1 Application TOP daily as needed No Start Date 01/16/2017 Inactive Medication Administered Medication Codes Instructions Start Date Status ceftriaxone 500 mg solution for injection RxNorm: 7518683 1Milliliter 08/27/2016 No longer Active Kenalog 40 mg/mL suspension for injection RxNorm: 6456635 1Milliliter 05/25/2015 No longer Active Immunizations Vaccine Codes Date Status Influenza CVX: 141 04/06/2016 completed Assessments Condition Codes Effective Dates Other abnormal glucose ICD-10: R73.09 ICD-9: 790.29 05/21/2017 Rash and other nonspecific skin eruption ICD-10: R21 ICD-9: 782.1 05/21/2017 Essential (primary) hypertension ICD-10: I10 ICD-9: 401.1 05/21/2017 Impaired fasting glucose ICD-10: R73.01 ICD-9: 790.21 05/21/2017 Pain in right knee ICD-10: M25.561 ICD-9: 719.46 05/21/2017 Mixed hyperlipidemia ICD-10: E78.2 ICD-9: 272.4 01/16/2017 Acute recurrent maxillary sinusitis ICD-10: J01.01 ICD-9: [...] Reason For Visit Effective Dates Notes hypertension 05/21/2017 hypertension 01/16/2017 hypertension 08/27/2016 hypertension 05/30/2016 hypertension 04/19/2016 knee pain 01/03/2016 knee pain 10/03/2015 knee pain 05/25/2015 knee pain 04/03/2015 knee pain 11/23/2014 sinus congestion 09/20/2014 Results Observation Observation Code Item Item Code Result Date %Hba1C Psh178 % HbA1c 27812-4 6.6 % 05/21/2017 %Hba1C Dwy195 Gluc Ave 143 mg/dL 05/21/2017 Comp Metabolic Hmz996 NA 138 mEq/L 05/21/2017 Comp Metabolic Tql813 K 3.8 mEq/L 05/21/2017 Comp Metabolic Jgs039 CL 99 mEq/L 05/21/2017 Comp Metabolic Uqf216 CO2 31.0 mEq/L 05/21/2017 Comp Metabolic Cpn504 ANION GAP 12 05/21/2017 Comp Metabolic Nrb390 GLUCOSE 93 mg/dL 05/21/2017 Comp Metabolic Uib804 Creat 0.8 mg/dL 05/21/2017 Comp Metabolic Uyj154 eGFR 102 ml/min/1.73m2 05/21/2017 Comp Metabolic Dxx186 BUN 13 mg/dL 05/21/2017 Comp Metabolic Awu130 B/C Ratio 16.7 Ratio 05/21/2017 Comp Metabolic Rdb929 CALCIUM 9.9 mg/dL 05/21/2017 Comp Metabolic Kld560 ALK PHOS 99 U/L 05/21/2017 Comp Metabolic Akg042 AST(SGOT) 18 U/L 05/21/2017 Comp Metabolic Frg208 ALT(SGPT) 29 U/L 05/21/2017 Comp Metabolic Ndi790 BILI T 0.7 mg/dL 05/21/2017 Comp Metabolic Jou203 ALBUMIN 4.1 g/dL 05/21/2017 Comp Metabolic Xuo536 TPRO 6.6 g/dL 05/21/2017 Comp Metabolic Deq859 GLOB 2.6 g/dL 05/21/2017 Comp Metabolic Lxu740 A/G Ratio 1.6 Ratio 05/21/2017 Comp Metabolic Ljt763 Osmo 275 mOsmo 05/21/2017 Tsh Ord6 hTSH II 1.34 uIU/mL 05/21/2017 %Hba1C Iue495 % HbA1c 99931-3 6.4 % 10/04/2015 %Hba1C Akd366 Gluc Ave 137 mg/dL 10/04/2015 Comp Metabolic Uxc271 NA 139 mEq/L 10/04/2015 Comp Metabolic Bqw068 K 3.8 mEq/L 10/04/2015 Comp Metabolic Oxo493 CL 104 mEq/L 10/04/2015 Comp Metabolic Gip711 CO2 32.0 mEq/L 10/04/2015 Comp Metabolic Rxf665 ANION GAP 7 10/04/2015 Comp Metabolic Ruy104 GLUCOSE 112 mg/dL 10/04/2015 Comp Metabolic Fzx033 Creat 0.8 mg/dL 10/04/2015 Comp Metabolic Ayt297 eGFR 102 ml/min/1.73m2 10/04/2015 Comp Metabolic Lar729 BUN 16 mg/dL 10/04/2015 Comp Metabolic Nqi508 B/C Ratio 20.5 Ratio 10/04/2015 Comp Metabolic Kut788 CALCIUM 9.3 mg/dL 10/04/2015 Comp Metabolic Cep321 ALK PHOS 87 U/L 10/04/2015 Comp Metabolic Rmt318 AST(SGOT) 17 U/L 10/04/2015 Comp Metabolic Ubz361 ALT(SGPT) 24 U/L 10/04/2015 Comp Metabolic Ytq440 BILI T 0.6 mg/dL 10/04/2015 Comp Metabolic Bes695 ALBUMIN 4.0 g/dL 10/04/2015 Comp Metabolic Qbz569 TPRO 6.3 g/dL 10/04/2015 Comp Metabolic Akw285 GLOB 2.3 g/dL 10/04/2015 Comp Metabolic Abd513 A/G Ratio 1.7 Ratio 10/04/2015 Comp Metabolic Zcm875 Osmo 279 mOsmo 10/04/2015 Lipid Ord30 CHOL [...] 22.2 % 10/04/2015 Cbc With Differential Ord2 [place]gs% 9.1 % 10/04/2015 Cbc With Differential Ord2 [...] 1.46 K/ul 10/04/2015 Cbc With Differential Ord2 [place] ABS# 0.6 K/ul 10/04/2015 Cbc With Differential Ord2 Eos ABS# 0.4 K/ul 10/04/2015 Cbc With Differential Ord2 Baso ABS# 0.1 K/ul 10/04/2015 %Hba1C Xsp363 % HbA1c 59680-4 6.5 % 11/24/2014 %Hba1C Ctu874 Gluc Ave 140 mg/dL 11/24/2014 Lipid Ord30 CHOL 121 mg/dL 11/23/2014 Lipid Ord30 HDL 37.0 mg/dl 11/23/2014 Lipid Ord30 TRIG 93 mg/dL 11/23/2014 Lipid Ord30 LDL 65 mg/dL 11/23/2014 Lipid Ord30 C/HDL 3.3 Ratio 11/23/2014 Comp Metabolic Jjz201 NA 135 mEq/L 11/23/2014 Comp Metabolic Tvm301 K 3.7 mEq/L 11/23/2014 Comp Metabolic Ghi956 CL 101 mEq/L 11/23/2014 Comp Metabolic Wao737 CO2 28.0 mEq/L 11/23/2014 Comp Metabolic Moz542 ANION GAP 10 11/23/2014 Comp Metabolic Yoy723 GLUCOSE 104 mg/dL 11/23/2014 Comp Metabolic Qvl858 Creat 0.8 mg/dL 11/23/2014 Comp Metabolic Szz292 eGFR 104 ml/min/1.73m2 11/23/2014 Comp Metabolic Nse350 BUN 10 mg/dL 11/23/2014 Comp Metabolic Bmh491 B/C Ratio 13.0 Ratio 11/23/2014 Comp Metabolic Nlh285 CALCIUM 9.7 mg/dL 11/23/2014 Comp Metabolic Dga232 ALK PHOS 92 U/L 11/23/2014 Comp Metabolic Hdq070 AST(SGOT) 17 U/L 11/23/2014 Comp Metabolic Bzr242 ALT(SGPT) 26 U/L 11/23/2014 Comp Metabolic Mey177 BILI T 1.1 mg/dL 11/23/2014 Comp Metabolic Pvh634 ALBUMIN 4.1 g/dL 11/23/2014 Comp Metabolic Wxe341 TPRO 6.3 g/dL 11/23/2014 Comp Metabolic Dkh464 GLOB 2.2 g/dL 11/23/2014 Comp Metabolic Jiy492 A/G Ratio 1.9 Ratio 11/23/2014 Comp Metabolic Xro105 Osmo 269 mOsmo 11/23/2014 Cbc With Differential [...] MG CPT-4: J0696 08/27/2016 DRAIN/INJECT JOINT/BURSA CPT-4: 43654 05/25/2015 TRIAMCINOLONE ACET INJ NOS CPT-4: J3301 05/25/2015 TRIAMCINOLONE ACET INJ NOS CPT-4: J3301 09/20/2014 ROCEPHIN, PER 250 MG CPT-4: J0696 09/20/2014 THER/PROPH/DIAG INJ SC/IM CPT-4: 86495 09/20/2014 Vital Signs Date Vital 05/21/2017 Blood Pressure 1: 118/80 Code : 8480-6 BMI: 32.2 Code : 28867-0 Heart Rate 1 : 76 bpm Height: 5'9" SpO2: 98% Weight: 218 lbs 01/16/2017 Blood Pressure 1: 132/78 Code : 8480-6 BMI: 31.0 Code : 83950-3 Heart Rate 1 : 63 bpm Height: 5'9" SpO2: 98% Weight: 210 lbs 08/27/2016 Blood Pressure 1: 128/72 Code : 8480-6 BMI: 30.4 Code : 96837-0 Heart Rate 1 : 69 bpm Height: 5'9" SpO2: 95% Temperature: 37.1 (C) / 98.7 (F) Weight: 206 lbs 05/30/2016 Blood Pressure 1: 136/64 Code : 8480-6 BMI: 30.7 Code : 03253-0 Heart Rate 1 : 77 bpm Height: 5'9" SpO2: 94% Weight: 208 lbs 04/19/2016 Blood Pressure 1: 108/68 Code : 8480-6 BMI: 28.8 Code : 23242-5 Height: 5'9" SpO2: 97% Weight: 195 lbs 01/03/2016 Blood Pressure 1: 120/70 Code : 8480-6 BMI: 31.0 Code : 16739-9 Heart Rate 1 : 81 bpm Height: 5'9" SpO2: 98% Weight: 210 lbs 10/03/2015 Blood Pressure 1: 128/68 Code : 8480-6 BMI: 31.7 Code : 51404-2 Heart Rate 1 : 60 bpm Height: 5'9" SpO2: 97% Weight: 215 lbs 05/25/2015 Blood Pressure 1: 138/84 Code : 8480-6 BMI: 32.6 Code : 19984-9 Heart Rate 1 : 60 bpm Height: 5'9" SpO2: 96% Weight: 221 lbs 04/03/2015 Blood Pressure 1: 142/74 Code : 8480-6 Blood Pressure 1: 136/70 Code: 8480-6 BMI: 32.5 Code: 38173-4 Heart Rate 1: 59 bpm Height: 5'9" SpO2: 94% Weight: 220 lbs 11/23/2014 Blood Pressure 1: 138/72 Code : 8480-6 BMI: 32.0 Code : 57721-9 Heart Rate 1 : 61 bpm Height: 5'9" SpO2: 94% Weight: 217 lbs 09/20/2014 Blood Pressure 1: 130/72 Code : 8480-6 Heart Rate 1: 84 bpm SpO2: 98% Weight: 228 lbs Functional Status No Functional Status data History of Present Illness Symptom Name Status Result Effective Date Notes hypertension Quality primary hypertension 05/21/2017 None hypertension [...] data Encounters Encounter Performer Location Codes Date ([id number]) 64437 EST. PATIENT, LEVEL IV Diagnosis: Essential (primary) hypertension[ICD10: I10] Diagnosis: Other abnormal glucose[ICD10: R73.09] Diagnosis: Rash and other nonspecific skin eruption[ICD10: R21] Diagnosis: Pain in right knee[ICD10: M25.561] Diagnosis: Impaired fasting glucose[ICD10: R73.01] Andreina Hoffmann MD, [facility] CPT-4: 95546 05/21/2017 ([id number]) 09103 EST. PATIENT, LEVEL IV Diagnosis: Essential (primary) hypertension[ICD10: I10] Diagnosis: Pain in right knee[ICD10: M25.561] Diagnosis: Rash and other nonspecific skin eruption[ICD10: R21] Diagnosis: Other abnormal glucose[ICD10: R73.09] Diagnosis: Mixed hyperlipidemia[ICD10: E78.2] Andreina Hoffmann MD, [facility] CPT-4: 91804 01/16/2017 ([id number]) 07454 EST. PATIENT, LEVEL IV Diagnosis: Essential (primary) hypertension[ICD10: I10] Diagnosis: Acute recurrent maxillary sinusitis[ICD10: J01.01] Andreina Hoffmann MD, [facility] CPT-4: 97095 08/27/2016 ([id number]) 66182 EST. PATIENT, LEVEL IV Diagnosis: Essential (primary) hypertension[ICD10: I10] Diagnosis: Pain in right knee[ICD10: M25.561] Diagnosis: Pain in left knee[ICD10: M25.562] Andreina Hoffmann MD, [facility] CPT-4: 55637 05/30/2016 ([id number]) 68362 EST. PATIENT, LEVEL III Diagnosis: Essential (primary) hypertension[ICD10: I10] Diagnosis: Pain in right knee[ICD10: M25.561] Gisel Hoffmann MD, [facility] CPT-4: 65063 04/19/2016 ([id number]) 96159 EST. PATIENT, LEVEL IV Diagnosis: Essential (primary) hypertension[ICD10: I10] Diagnosis: Mixed hyperlipidemia[ICD10: E78.2] Diagnosis: Pain in right knee[ICD10: M25.561] Andreina Hoffmann MD, [facility] CPT-4: 52366 01/03/2016 ([id number]) 68108 EST. PATIENT, LEVEL IV Diagnosis: Essential (primary) hypertension[ICD10: I10] Diagnosis: Mixed hyperlipidemia[ICD10: E78.2] Diagnosis: Hyperglycemia, unspecified[ICD10: R73.9] Andreina Hoffmann MD, [facility] CPT-4: 33860 10/03/2015 11041 EST. PATIENT, LEVEL IV Diagnosis: Pain in right knee[ICD10: M25.561] Tiffany Hoffmann MD, [facility] CPT-4: 40530 05/25/2015 ([id number]) 75425 EST. PATIENT, LEVEL III Diagnosis: Essential (primary) hypertension[ICD10: I10] Diagnosis: Changes in skin texture[ICD10: R23.4] Andreina Hoffmann MD, [facility] CPT-4: 54817 04/03/2015 ([id number]) 64611 EST. PATIENT, LEVEL IV Diagnosis: ESSENTIAL HYPERTENSION[ICD9: 401.9] Diagnosis: DIABETES TYPE II[ICD9: 250.00] Diagnosis: HYPERLIPIDEMIA[ICD9: 272.4] Diagnosis: OSTEOARTH NOS-UNSPEC[ICD9: 715.90] Andreina Hoffmann MD, [facility] CPT-4: 20305 11/23/2014 ([id number]) OFFICE VISIT, NEW - LEVEL 3 Diagnosis: ACUTE BRONCHITIS[ICD9: 466.0] Diagnosis: Dyspnea[ICD9: 786.09] Diagnosis: Sinusitis[ICD9: 473.9] Diagnosis: ACUTE MAXILLARY SINUSITIS[ICD9: 461.0] [facility] CPT-4: 48596 09/20/2014 Plan of Care Planned Activity Notes Codes Status Date Visit Plan: rash on arms laterally, low [...] provided today. 05/21/2017 Appointment: Andreina Hoffmann WPtel: [address] [place], [place] [phone] (15 min) Moderate 05/21/2017 Patient Education: Patient [...] provided today. 01/16/2017 Appointment: Andreina Hoffmann WPtel: [phone] [facility] (15 min) Moderate 01/16/2017 Patient Education: Patient Medication Summary Completed 01/16/2017 Appointment: Andreina Hoffmann WPtel: [phone] [facility] (15 min) Moderate 12/30/2016 Visit Plan: [...] - 08/27/2016 Appointment: Andreina Hoffmann WPtel: [facility] (15 min) Moderate 08/27/2016 Patient Education: [...] oxycodone 05/30/2016 Appointment: Andreina Hoffmann WPtel: [facility]9 [facility] (15 min) Moderate 05/30/2016 Patient Education: Patient Medication Summary Completed 05/30/2016 Patient Education: Obesity Completed 05/30/2016 Appointment: Gisel Titus WPtel: [phone] [place] (30 min) Complex 05/24/2016 Visit Plan: [...] Dr Galdamez-on IV abx-sees infection control at [place] 04/19/2016 [phone] [phone] [place] (30 min) Complex 04/19/2016 Patient Education: Patient Medication Summary Completed 04/19/2016 Patient Education: Hypertension Completed 04/19/2016 [facility] [phone] [facility] [place] (15 min) Moderate 04/03/2016 Visit Plan: [...] Medication Summary Completed 05/25/2015 Referral: Demetrius Cedeno WPtel:[phone] Referral Completed 04/19/2015 Visit Plan: Hypertension - [...] local surgeons. 04/03/2015 Appointment: [facility] [phone] [facility] (15 min) Moderate 04/03/2015 Patient Education: Patient Medication Summary Completed 04/03/2015 Patient Education: Hypertension Completed 04/03/2015 Care Plan: Referral Order SNOMED-CT : [id number] Ordered 04/03/2015 Visit Plan: Hypertension - well [...] labs. 11/23/2014 Appointment: [facility] [phone] [facility] [place] ([place] New Patient 11/23/2014 Patient [...] if symptoms acutely worsen. rocephin shot - [id number] exp 12/03/14 1ML 500mg apotec kenalog [id number] exp [facility] 09/20/2014 Patient Education: Patient Medication Summary Completed 09/20/2014 Referral: Demetrius Cedeno WPtel:[phone] Referral Appointment Requested Instructions Comment Dr. Cedeno [...] to have labs - fasting labs. . Right knee pain, pt states that [...] pain occurs at the site of injection. restart probiotic - take twice daily x [...] Dr Galdamez-on IV abx-sees infection control at [place] . Hypertension - well controlled - continue [...] pain - uncontrolled - RX for oxycodone stop aspirin, and fish oil one week [...] if symptoms acutely worsen. rocephin shot - [id number] exp 12/03/14 1ML 500mg apotec kenalog [id number] exp may 2016[facility] coconut oil start taking a probiotic - like Ubidyne or Pinguo - this will help to decrease the [...]
--- OUTSIDE RECORDS SUMMARY | 2018-08-26 06:43 | XMS REPORT | CCD ---
Author Author [facility]ina Hoffmann Organization [facility] Address [address] [place] [address] Phone Care Team Providers Care Conference Translator Name Role Phone PP Unavailable CCM Unavailable Summary Purpose Interface Exchange Insurance Providers Payer name Policy type / Coverage type Covered green party ID Effective Begin Date Effective End Date Blue Cross Blue Shield [facility] Blue Cross/Blue Shield [id number] Unknown Unknown WPS Medicare Part B Blue Cross/Blue Shield [id number] Unknown Unknown Family history Father Diagnosis Age [...] 6 adopted 11/23/[address]: 9214104 Former smoker 1970- quit 11/23/2014 Alcohol history Unknown occasionally drinks alcohol 11/23/2014 Living arrangements Unknown House 09/20/2014 Employment Unknown 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 [employer] 09/20/2014 Allergies, Adverse Reactions, Alerts Allergies, Adverse [...] Fill Instructions Lipitor 20 mg tablet RxNorm: 341075 TAKE ONE TABLET BY MOUTH DAILY AT BEDTIME 05/22/2017 05/16/2018 Active Generic For:LIPITOR 20MG 05/22/2017 9:16:26 AM triamterene 37.5 mg-hydrochlorothiazide 25 mg capsule RxNorm: 481990 TAKE 1 CAPSULE BY MOUTH DAILY 05/22/20172018 Active Generic For:DYAZIDE 37.5-25 05/22/2017 9:16:22 AM betamethasone valerate 0.1 % topical ointment RxNorm: 039238 1 Application TOP TID apply to skin lesions/rash on legs, arms, back 201706/19/2017 Active terazosin 2 mg capsule RxNorm: 385632 TAKE 1 CAPSULE BY MOUTH DAILY 02/19/2017 08/17/2017 Active 02/19/2017 11:33:02 AM clobetasol 0.05 % topical cream RxNorm: 427835 1 Application TOP daily as needed 01/17/2017 No Stop Date Active mupirocin 2 % topical cream RxNorm: 457765 1 Application TOP BID 01/16/2017 02/14/2017 Inactive oxycodone 5 mg tablet RxNorm: 2427831 1 Tablet(s) PO BID 201610/10/2016 Inactive terazosin 2 mg capsule RxNorm: 996854 1 Capsule(s) PO daily 02/18/2017 Inactive ceftriaxone 500 mg solution for injection RxNorm: 5652685 1 Milliliter(s) Inj 08/27/2016 08/27/2016 Inactive azithromycin 250 mg tablet RxNorm: 460772 1 Tablet(s) PO UD take two pills on day #1, then one pill daily x 4 days 08/27/2016 01/15/2017 Inactive Toprol XL 25 mg tablet,extended release RxNorm: 205893 1 Tablet(s) PO daily 08/26/2016 12/23/2016 Inactive oxycodone 5 mg tablet RxNorm: 7683868 1 Tablet(s) PO BID 201607/27/2016 Inactive Lipitor 20 mg tablet RxNorm: 820896 1 Tablet(s) QHS TAKE 1 TABLET BY MOUTH ONCE DAILY AT BEDTIME. 05/27/2016 05/21/2017 Inactive Generic For:LIPITOR 20MG 2014 11:51:16 AM N O T I C E PRESCRIPTION PREVIOUSLY AUTHORIZED BY DOCTOR: NICHOLE ESPANA triamterene 37.5 mg-hydrochlorothiazide 25 mg capsule RxNorm: 858689 1 Capsule(s) PO daily 05/27/2016 05/21/2017 Inactive terazosin 2 mg capsule RxNorm: 086515 1 Capsule(s) PO daily 08/19/2016 Inactive terazosin 2 mg capsule RxNorm: 161481 1 Capsule(s) PO daily 04/21/2016 Inactive terazosin 5 mg capsule RxNorm: 681368 1/2 Tablet(s) PO QPM 04/21/2016 Inactive Toprol XL 25 mg tablet,extended release RxNorm: 164673 1 Tablet(s) PO daily 04/16/2016 04/15/2016 Inactive Toprol XL 25 mg tablet,extended release RxNorm: 253793 1 Tablet(s) PO daily 04/16/2016 08/13/2016 Inactive pantoprazole 40 mg tablet,delayed release RxNorm: 222868 1 Tablet(s) PO daily 04/16/2016 04/15/2016 Inactive pantoprazole 40 mg tablet,delayed release RxNorm: 972970 1 Tablet(s) PO daily 04/16/2016 01/15/2017 Inactive Toprol XL 50 mg tablet,extended release RxNorm: 780146 1 Tablet(s) PO daily 02/28/2016 04/15/2016 Inactive terazosin 5 mg capsule RxNorm: 498830 1 Tablet(s) PO QPM 201504/18/2016 Inactive oxycodone 5 mg tablet RxNorm: 0851666 1 Tablet(s) PO UD 1/2 at 3pm, 1 pill at 9pm and may take up to 2 pills bid if needed. 01/03/2016 06/27/2016 Inactive Toprol XL 50 mg tablet,extended release RxNorm: 151012 1 Tablet(s) PO daily 11/15/2015 02/27/2016 Inactive terazosin 5 mg capsule RxNorm: 518173 1 Tablet(s) PO QPM 201501/01/2016 Inactive Lipitor 20 mg tablet RxNorm: 927824 1 Tablet(s) QHS TAKE 1 TABLET BY MOUTH ONCE DAILY AT BEDTIME. 06/01/2015 05/25/2016 Inactive Generic For:LIPITOR 20MG 2014 11:51:16 AM N O T I C E PRESCRIPTION PREVIOUSLY AUTHORIZED BY DOCTOR: NICHOLE ESPANA Kenalog 40 mg/mL suspension for injection RxNorm: 8654674 1 Milliliter(s) Inj 05/25/2015 05/25/2015 Inactive terazosin 5 mg capsule RxNorm: 385006 1 Tablet(s) PO QPM 201407/05/2015 Inactive Toprol XL 50 mg tablet,extended release RxNorm: 062251 1 Tablet(s) PO daily 05/04/2015 10/30/2015 Inactive terazosin 5 mg capsule RxNorm: 928734 1 Tablet(s) PO QPM 201405/03/2015 Inactive triamterene 37.5 mg-hydrochlorothiazide 25 mg capsule RxNorm: 113065 1 Capsule(s) PO daily 04/26/2015 05/26/2016 Inactive Voltaren 1 % topical gel RxNorm: 080673 4 Gram(s) TOP QID to knees 04/19/2015 07/17/2015 Inactive Lipitor 20 mg tablet RxNorm: 022781 Tablet(s) TAKE 1 TABLET BY MOUTH ONCE DAILY AT BEDTIME. 04/13/2015 05/31/2015 Inactive Generic For:LIPITOR 20MG 03/24/2015 11: 51:16 AM N O T I C E PRESCRIPTION PREVIOUSLY AUTHORIZED BY DOCTOR:NICHOLE ESPANA Lipitor 20 mg tablet RxNorm: 517912 TAKE 1 TABLET BY MOUTH ONCE DAILY AT BEDTIME. 03/24/2015 04/12/2015 Inactive Generic For:LIPITOR 20MG 03/24/2015 11:51:16 AM N O T I C E PRESCRIPTION PREVIOUSLY AUTHORIZED BY DOCTOR:NICHOLE ESPANA Lipitor 20 mg tablet RxNorm: 730496 TAKE 1 TABLET BY MOUTH ONCE DAILY AT BEDTIME. 03/24/2015 03/23/2015 Inactive Generic For:LIPITOR 20MG 03/24/2015 11:51:16 AM N O T I C E PRESCRIPTION PREVIOUSLY AUTHORIZED BY DOCTOR:NICHOLE ESPANA Lipitor 20 mg tablet RxNorm: 674262 1 Tablet(s) PO daily 201403/23/2015 Inactive Toprol XL 50 mg tablet,extended release RxNorm: 894440 1 Tablet(s) PO daily 03/08/2015 05/03/2015 Inactive Toprol XL 50 mg tablet,extended release RxNorm: 054629 1 Tablet(s) PO daily 03/08/2015 03/07/2015 Inactive Toprol XL 50 mg tablet,extended release RxNorm: 983478 1 Tablet(s) PO daily 03/07/2015 03/07/2015 Inactive triamterene 37.5 mg-hydrochlorothiazide 25 mg capsule RxNorm: 294080 1 Capsule(s) PO daily 01/26/2015 04/25/2015 Inactive Hytrin 5 mg tablet RxNorm: 870809 1 Tablet(s) PO QPM 201403/25/2015 Inactive triamterene 37.5 mg-hydrochlorothiazide 25 mg capsule RxNorm: 445005 1 Capsule(s) PO daily 01/25/2015 01/25/2015 Inactive Voltaren 1 % topical gel RxNorm: 256253 4 Gram(s) TOP QID to knees 11/23/2014 02/20/2015 Inactive aspirin 81 mg chewable tablet RxNorm: 313007 1 Tablet(s) PO daily 09/20/2014 12/02/2017 Active azithromycin 250 mg tablet RxNorm: 461718 2 Tablet(s) PO on day #1, then 1 pill on days #2-5 09/20/2014 04/02/2015 Inactive [SAVINGS FOR NON-COVERED DRUGS -- BIN: 642606, PCN: [id number], Group: XXXXX, ID# XXXXXXX, Questions: . THIS IS NOT INSURANCE.] triamterene 37.5 mg-hydrochlorothiazide 25 mg capsule RxNorm: 517578 1 Capsule(s) PO daily 09/20/2014 01/24/2015 Inactive Keflex 500 mg capsule RxNorm: 321732 1 Capsule(s) PO TID 201409/26/2014 Inactive PLEASE CALL PT TO LET HIM KNOW THAT THE ANTIBIOTICS ARE READY FOR [employer] LEAD - START ON 09/21/14 Hytrin 5 mg tablet RxNorm: 850323 1 Tablet(s) PO QPM 201401/24/2015 Inactive Vitamin C 500 mg chewable tablet RxNorm: 922603 1 Tablet(s) PO daily 09/20/2014 08/27/2016 Inactive Toprol XL 50 mg tablet,extended release RxNorm: 184723 1 Tablet(s) PO daily 09/20/2014 03/06/2015 Inactive prednisone 20 mg tablet RxNorm: 600181 3 Tablet(s) PO daily 09/24/2014 Inactive [SAVINGS FOR NON-COVERED DRUGS -- BIN:103936, PCN: ASPROD1, Group: XXXXX, ID# XXXXXXX, Questions: . THIS IS NOT INSURANCE.] Vitamin D3 1,000 unit capsule RxNorm: 339469 1 Capsule(s) PO daily 09/20/2014 08/27/2016 Inactive fish oil-dha-epa 1,200 mg-144 mg-216 mg capsule RxNorm: 1 Capsule(s) PO daily 09/20/2014 08/27/2016 Inactive Lipitor 20 mg tablet RxNorm: 369320 1 Tablet(s) PO daily 201403/23/2015 Inactive naproxen sodium 220 mg tablet RxNorm: 067560 1 Tablet(s) PO BID as needed for pain 09/20/2014 01/02/2016 Inactive penicillin V potassium 500 mg tablet RxNorm: 460620 1 Tablet(s) PO daily - Prescribed by Dr. Adam No Start Date Active Fish Oil 360 mg-1,200 mg capsule RxNorm: 052789 1 Capsule(s) PO daily No Start Date Active Vitamin D3 2,000 unit tablet RxNorm: 249292 1 Tablet(s) PO daily No Start Date Active naproxen 250 mg tablet RxNorm: 274613 Tablet(s) PO BID as needed No Start Date Active Stool Softener 100 mg capsule RxNorm: 1199608 1 Capsule(s) PO BID No Start Date Active Probiotic oral RxNorm : 6205 oral No Start Date Active Vitamin C 1,000 mg tablet RxNorm: 309701 1 Tablet(s) PO daily No Start Date Active rifampin 150 mg capsule RxNorm: 538580 1 Capsule(s) PO daily No Start Date 08/26/2016 Inactive calcium carbonate 550 mg chewable tablet RxNorm: 558956 1 Tablet(s) PO QID as needed No Start Date 08/26/2016 Inactive clobetasol 0.05 % topical cream RxNorm: 808206 1 Application TOP daily as needed No Start Date 01/16/2017 Inactive Medication Administered Medication Codes Instructions Start Date Status ceftriaxone 500 mg solution for injection RxNorm: 3083042 1Milliliter 08/27/2016 No longer Active Kenalog 40 mg/mL suspension for injection RxNorm: 3983815 1Milliliter 05/25/2015 No longer Active Immunizations Vaccine [...] Code Item Item Code Result Date %Hba1C Kcr754 % HbA1c 24789-7 6.6 % 05/21/2017 %Hba1C Pmp267 Gluc Ave 143 mg/dL 05/21/2017 Comp Metabolic Xos431 NA 138 mEq/L 05/21/2017 Comp Metabolic Wms412 K 3.8 mEq/L 05/21/2017 Comp Metabolic Wlx614 CL 99 mEq/L 05/21/2017 Comp Metabolic Vth160 CO2 31.0 mEq/L 05/21/2017 Comp Metabolic Mri509 ANION GAP 12 05/21/2017 Comp Metabolic Syr741 GLUCOSE 93 mg/dL 05/21/2017 Comp Metabolic Tes938 Creat 0.8 mg/dL 05/21/2017 Comp Metabolic Kbw866 eGFR 102 ml/min/1.73m2 05/21/2017 Comp Metabolic Vkt094 BUN 13 mg/dL 05/21/2017 Comp Metabolic Cce097 B/C Ratio 16.7 Ratio 05/21/2017 Comp Metabolic Trj937 CALCIUM 9.9 mg/dL 05/21/2017 Comp Metabolic Npf224 ALK PHOS 99 U/L 05/21/2017 Comp Metabolic Wey976 AST(SGOT) 18 U/L 05/21/2017 Comp Metabolic Kdz370 ALT(SGPT) 29 U/L 05/21/2017 Comp Metabolic Rfu377 BILI T 0.7 mg/dL 05/21/2017 Comp Metabolic Nos820 ALBUMIN 4.1 g/dL 05/21/2017 Comp Metabolic Wyj404 TPRO 6.6 g/dL 05/21/2017 Comp Metabolic Edx434 GLOB 2.6 g/dL 05/21/2017 Comp Metabolic Yxu275 A/G Ratio 1.6 Ratio 05/21/2017 Comp Metabolic Orc448 Osmo 275 mOsmo 05/21/2017 Tsh Ord6 hTSH II 1.34 uIU/mL 05/21/2017 %Hba1C Jwo675 % HbA1c 54731-5 6.4 % 10/04/2015 %Hba1C Ntv007 Gluc Ave 137 mg/dL 10/04/2015 Comp Metabolic Mgi473 NA 139 mEq/L 10/04/2015 Comp Metabolic Asa305 K 3.8 mEq/L 10/04/2015 Comp Metabolic Uoy151 CL 104 mEq/L 10/04/2015 Comp Metabolic Hwk202 CO2 32.0 mEq/L 10/04/2015 Comp Metabolic Yeh235 ANION GAP 7 10/04/2015 Comp Metabolic Ybh681 GLUCOSE 112 mg/dL 10/04/2015 Comp Metabolic Bff544 Creat 0.8 mg/dL 10/04/2015 Comp Metabolic Ket711 eGFR 102 ml/min/1.73m2 10/04/2015 Comp Metabolic Hir482 BUN 16 mg/dL 10/04/2015 Comp Metabolic Trh488 B/C Ratio 20.5 Ratio 10/04/2015 Comp Metabolic Yby002 CALCIUM 9.3 mg/dL 10/04/2015 Comp Metabolic Mxv281 ALK PHOS 87 U/L 10/04/2015 Comp Metabolic Xxp704 AST(SGOT) 17 U/L 10/04/2015 Comp Metabolic Nzr041 ALT(SGPT) 24 U/L 10/04/2015 Comp Metabolic Bsn466 BILI T 0.6 mg/dL 10/04/2015 Comp Metabolic Agw025 ALBUMIN 4.0 g/dL 10/04/2015 Comp Metabolic Quu180 TPRO 6.3 g/dL 10/04/2015 Comp Metabolic Eic786 GLOB 2.3 g/dL 10/04/2015 Comp Metabolic Ueb958 A/G Ratio 1.7 Ratio 10/04/2015 Comp Metabolic Qsh638 Osmo 279 mOsmo 10/04/2015 Lipid Ord30 CHOL [...] 22.2 % 10/04/2015 Cbc With Differential Ord2 Garvin% 9.1 % 10/04/2015 Cbc With Differential Ord2 [...] 1.46 K/ul 10/04/2015 Cbc With Differential Ord2 Garvin ABS# 0.6 K/ul 10/04/2015 Cbc With Differential Ord2 Eos ABS# 0.4 K/ul 10/04/2015 Cbc With Differential Ord2 Baso ABS# 0.1 K/ul 10/04/2015 %Hba1C Foa371 % HbA1c 90175-7 6.5 % 11/24/2014 %Hba1C Nvg722 Gluc Ave 140 mg/dL 11/24/2014 Lipid Ord30 CHOL 121 mg/dL 11/23/2014 Lipid Ord30 HDL 37.0 mg/dl 11/23/2014 Lipid Ord30 TRIG 93 mg/dL 11/23/2014 Lipid Ord30 LDL 65 mg/dL 11/23/2014 Lipid Ord30 C/HDL 3.3 Ratio 11/23/2014 Comp Metabolic Clk313 NA 135 mEq/L 11/23/2014 Comp Metabolic Ikw924 K 3.7 mEq/L 11/23/2014 Comp Metabolic Bla154 CL 101 mEq/L 11/23/2014 Comp Metabolic Bug435 CO2 28.0 mEq/L 11/23/2014 Comp Metabolic Psu997 ANION GAP 10 11/23/2014 Comp Metabolic Pef512 GLUCOSE 104 mg/dL 11/23/2014 Comp Metabolic Tsj922 Creat 0.8 mg/dL 11/23/2014 Comp Metabolic Utm039 eGFR 104 ml/min/1.73m2 11/23/2014 Comp Metabolic Cas141 BUN 10 mg/dL 11/23/2014 Comp Metabolic Azx218 B/C Ratio 13.0 Ratio 11/23/2014 Comp Metabolic Gmu788 CALCIUM 9.7 mg/dL 11/23/2014 Comp Metabolic Tls388 ALK PHOS 92 U/L 11/23/2014 Comp Metabolic Vlb342 AST(SGOT) 17 U/L 11/23/2014 Comp Metabolic Gso123 ALT(SGPT) 26 U/L 11/23/2014 Comp Metabolic Ihk074 BILI T 1.1 mg/dL 11/23/2014 Comp Metabolic Ebv725 ALBUMIN 4.1 g/dL 11/23/2014 Comp Metabolic Shn524 TPRO 6.3 g/dL 11/23/2014 Comp Metabolic Dcg103 GLOB 2.2 g/dL 11/23/2014 Comp Metabolic Xpr409 A/G Ratio 1.9 Ratio 11/23/2014 Comp Metabolic Sul454 Osmo 269 mOsmo 11/23/2014 Cbc With Differential [...] MG CPT-4: J0696 08/27/2016 DRAIN/INJECT JOINT/BURSA CPT-4: 07276 05/25/2015 TRIAMCINOLONE ACET INJ NOS CPT-4: J3301 05/25/2015 TRIAMCINOLONE ACET INJ NOS CPT-4: J3301 09/20/2014 ROCEPHIN, PER 250 MG CPT-4: J0696 09/20/2014 THER/PROPH/DIAG INJ SC/IM CPT-4: 90563 09/20/2014 Vital Signs Date Vital 05/21/2017 Blood Pressure 1: 118/80 Code : 8480-6 BMI: 32.2 Code : 04433-5 Heart Rate 1 : 76 bpm Height: 5'9" SpO2: 98% Weight: 218 lbs 01/16/2017 Blood Pressure 1: 132/78 Code : 8480-6 BMI: 31.0 Code : 26959-3 Heart Rate 1 : 63 bpm Height: 5'9" SpO2: 98% Weight: 210 lbs 08/27/2016 Blood Pressure 1: 128/72 Code : 8480-6 BMI: 30.4 Code : 25710-2 Heart Rate 1 : 69 bpm Height: 5'9" SpO2: 95% Temperature: 37.1 (C) / 98.7 (F) Weight: 206 lbs 05/30/2016 Blood Pressure 1: 136/64 Code : 8480-6 BMI: 30.7 Code : 06041-0 Heart Rate 1 : 77 bpm Height: 5'9" SpO2: 94% Weight: 208 lbs 04/19/2016 Blood Pressure 1: 108/68 Code : 8480-6 BMI: 28.8 Code : 63340-9 Height: 5'9" SpO2: 97% Weight: 195 lbs 01/03/2016 Blood Pressure 1: 120/70 Code : 8480-6 BMI: 31.0 Code : 60840-1 Heart Rate 1 : 81 bpm Height: 5'9" SpO2: 98% Weight: 210 lbs 10/03/2015 Blood Pressure 1: 128/68 Code : 8480-6 BMI: 31.7 Code : 76834-2 Heart Rate 1 : 60 bpm Height: 5'9" SpO2: 97% Weight: 215 lbs 05/25/2015 Blood Pressure 1: 138/84 Code : 8480-6 BMI: 32.6 Code : 61036-1 Heart Rate 1 : 60 bpm Height: 5'9" SpO2: 96% Weight: 221 lbs 04/03/2015 Blood Pressure 1: 142/74 Code : 8480-6 Blood Pressure 1: 136/70 Code: 8480-6 BMI: 32.5 Code: 02777-7 Heart Rate 1: 59 bpm Height: 5'9" SpO2: 94% Weight: 220 lbs 11/23/2014 Blood Pressure 1: 138/72 Code : 8480-6 BMI: 32.0 Code : 99050-9 Heart Rate 1 : 61 bpm Height: [...] data Encounters Encounter Performer Location Codes Date ([id number]) 22504 EST. PATIENT, LEVEL IV Diagnosis: Essential (primary) hypertension[ICD10: I10] Diagnosis: Other abnormal glucose[ICD10: R73.09] Diagnosis: Rash and other nonspecific skin eruption[ICD10: R21] Diagnosis: Pain in right knee[ICD10: M25.561] Diagnosis: Impaired fasting glucose[ICD10: R73.01] Andreina Hoffmann MD, [facility] CPT-4: 04654 05/21/2017 ([id number]) 96113 EST. PATIENT, LEVEL IV Diagnosis: Essential (primary) hypertension[ICD10: I10] Diagnosis: Pain in right knee[ICD10: M25.561] Diagnosis: Rash and other nonspecific skin eruption[ICD10: R21] Diagnosis: Other abnormal glucose[ICD10: R73.09] Diagnosis: Mixed hyperlipidemia[ICD10: E78.2] Andreina Hoffmann MD, [facility] CPT-4: 56841 01/16/2017 ([id number]) 98113 EST. PATIENT, LEVEL IV Diagnosis: Essential (primary) hypertension[ICD10: I10] Diagnosis: Acute recurrent maxillary sinusitis[ICD10: J01.01] Andreina Hoffmann MD, [facility] CPT-4: 23664 08/27/2016 ([id number]) 41010 EST. PATIENT, LEVEL IV Diagnosis: Essential (primary) hypertension[ICD10: I10] Diagnosis: Pain in right knee[ICD10: M25.561] Diagnosis: Pain in left knee[ICD10: M25.562] Andreina Hoffmann MD, [facility] CPT-4: 50378 05/30/2016 ([id number]) 50327 EST. PATIENT, LEVEL III Diagnosis: Essential (primary) hypertension[ICD10: I10] Diagnosis: Pain in right knee[ICD10: M25.561] Gisel Hoffmann MD, [facility] CPT-4: 78810 04/19/2016 ([id number]) 55484 EST. PATIENT, LEVEL IV Diagnosis: Essential (primary) hypertension[ICD10: I10] Diagnosis: Mixed hyperlipidemia[ICD10: E78.2] Diagnosis: Pain in right knee[ICD10: M25.561] Andreina Hoffmann MD, [facility] CPT-4: 55105 01/03/2016 ([id number]) 09569 EST. PATIENT, LEVEL IV Diagnosis: Essential (primary) hypertension[ICD10: I10] Diagnosis: Mixed hyperlipidemia[ICD10: E78.2] Diagnosis: Hyperglycemia, unspecified[ICD10: R73.9] Andreina Hoffmann MD, [facility] CPT-4: 51337 10/03/2015 67242 EST. PATIENT, LEVEL IV Diagnosis: Pain in right knee[ICD10: M25.561] Tiffany Hoffmann MD, [facility] CPT-4: 97331 05/25/2015 ([id number]) 10598 EST. PATIENT, LEVEL III Diagnosis: Essential (primary) hypertension[ICD10: I10] Diagnosis: Changes in skin texture[ICD10: R23.4] Andreina Hoffmann MD, [facility] CPT-4: 71197 04/03/2015 ([id number]) 46124 EST. PATIENT, LEVEL IV Diagnosis: ESSENTIAL HYPERTENSION[ICD9: 401.9] Diagnosis: DIABETES TYPE II[ICD9: 250.00] Diagnosis: HYPERLIPIDEMIA[ICD9: 272.4] Diagnosis: OSTEOARTH NOS-UNSPEC[ICD9: 715.90] Andreina Hoffmann MD, [facility] CPT-4: 30584 11/23/2014 ([id number]) OFFICE VISIT, NEW - LEVEL 3 Diagnosis: ACUTE BRONCHITIS[ICD9: 466.0] Diagnosis: Dyspnea[ICD9: 786.09] Diagnosis: Sinusitis[ICD9: 473.9] Diagnosis: ACUTE MAXILLARY SINUSITIS[ICD9: 461.0] [facility] CPT-4: 32775 09/20/2014 Plan of Care Planned Activity Notes [...] provided today. 05/21/2017 Appointment: Andreina Hoffmann WPtel: [address] [place], [place] [phone] (15 min) Moderate 05/21/2017 Patient Education: Patient [...] provided today. 01/16/2017 Appointment: Andreina Hoffmann WPtel: [phone] [facility] (15 min) Moderate 01/16/2017 Patient Education: Patient Medication Summary Completed 01/16/2017 Appointment: Andreina Hoffmann WPtel: [phone] [facility] (15 min) Moderate 12/30/2016 Visit Plan: [...] shot - 08/27/2016 Appointment: Andreina Hoffmann WPtel: [facility] (15 min) Moderate 08/27/2016 Patient Education: [...] for oxycodone 05/30/2016 Appointment: Andreina Hoffmann WPtel: [facility] (15 min) Moderate 05/30/2016 Patient Education: Patient Medication Summary Completed 05/30/2016 Patient Education: Obesity Completed 05/30/2016 Appointment: Gisel Titus WPtel: [phone] [place] (30 min) Complex 05/24/2016 Visit [...] Dr Galdamez-on IV abx-sees infection control at [place] 04/19/2016 Appointment: [facility]itus[phone] [phone] [place] (30 min) Complex 04/19/2016 Patient Education: Patient Medication Summary Completed 04/19/2016 Patient Education: Hypertension Completed 04/19/2016 [phone] [place] ([facility] min) Moderate 04/03/2016 Visit [...] Medication Summary Completed 05/25/2015 Referral: Demetrius Cedeno WPtel:[phone] Referral Completed 04/19/2015 Visit Plan: Hypertension - [...] surgeons. 04/03/2015 [facility]ment: [phone] [facility] ([facility] min) Moderate 04/03/2015 Patient Education: Patient Medication Summary Completed 04/03/2015 Patient Education: Hypertension Completed 04/03/2015 Care Plan: Referral Order SNOMED-CT : [id number] Ordered 04/03/2015 Visit Plan: Hypertension - well [...] labs. 11/23/2014 Appointment: [phone] [facility] [place] ([place] New Patient 11/23/2014 Patient [...] if symptoms acutely worsen. rocephin shot - [id number] exp 12/03/14 1ML 500mg apotec kenalog [id number] exp [address] [facility] 09/20/2014 Patient Education: Patient Medication Summary Completed 09/20/2014 Referral: Demetrius Cedeno WPtel:[phone] Referral Appointment Requested Instructions Comment Dr. Cedeno [...] Dr Galdamez-on IV abx-sees infection control at [place] . Hypertension - well controlled - continue [...] if symptoms acutely worsen. rocephin shot - [id number] exp 12/03/14 1ML 500mg apotec kenalog [id number] exp may 2016[facility]ist[facility] squibb coconut oil start taking a probiotic - like Myfacepage or [email or web address] - this will help to decrease the [...]
[2018-08-26] MEDS ORDERED: cefTRIAXone FOR IV USE 1,000 MG in WATER (STERILE) FOR INJECTION 10 ML IV ONE (06:45)
--- OUTSIDE RECORDS SUMMARY | 2018-08-26 06:45 | XMS REPORT | CCD ---
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 Name Role Phone PP Unavailable CCM Unavailable Summary Purpose Interface Exchange Insurance Providers Payer name Policy type / Coverage type Covered republican ID Effective Begin Date Effective End Date Blue Cross Blue Shield [facility] Blue Cross/Blue Shield [id number] Unknown Unknown WPS Medicare Part B Blue Cross/Blue Shield [id number] Unknown Unknown Family history Father Diagnosis Age [...] 6 adopted 11/23/[address]: 9732487 Former smoker 1970- quit 11/23/2014 Alcohol history Unknown occasionally drinks alcohol 11/23/2014 Living arrangements Unknown House 09/20/2014 Employment Unknown Currently employed [employer] and [employer] 09/20/2014 Allergies, Adverse Reactions, Alerts Allergies, Adverse [...] betamethasone valerate 0.1 % topical ointment RxNorm: 767811 1 Application TOP TID apply to skin lesions/rash on legs, arms, back 201706/19/2017 Active terazosin 2 mg capsule RxNorm: 080329 TAKE 1 CAPSULE BY MOUTH DAILY 02/19/2017 08/17/2017 Active 02/19/2017 11:33:02 AM clobetasol 0.05 % topical cream RxNorm: 964336 1 Application TOP daily as needed 01/17/2017 No Stop Date Active mupirocin 2 % topical cream RxNorm: 349771 1 Application TOP BID 01/16/2017 02/14/2017 Inactive oxycodone 5 mg tablet RxNorm: 4766408 1 Tablet(s) PO BID 201610/10/2016 Inactive terazosin 2 mg capsule RxNorm: 165430 1 Capsule(s) PO daily 02/18/2017 Inactive ceftriaxone 500 mg solution for injection RxNorm: 1441829 1 Milliliter(s) Inj 08/27/2016 08/27/2016 Inactive azithromycin 250 mg tablet RxNorm: 980789 1 Tablet(s) PO UD take two pills on day #1, then one pill daily x 4 days 08/27/2016 01/15/2017 Inactive Toprol XL 25 mg tablet,extended release RxNorm: 031600 1 Tablet(s) PO daily 08/26/2016 12/23/2016 Inactive oxycodone 5 mg tablet RxNorm: 0903047 1 Tablet(s) PO BID 201607/27/2016 Inactive Lipitor 20 mg tablet RxNorm: 808081 1 Tablet(s) QHS TAKE 1 TABLET BY MOUTH ONCE DAILY AT BEDTIME. 05/27/2016 05/21/2017 Inactive Generic For:LIPITOR 20MG 2014 11:51:16 AM N O T I C E PRESCRIPTION PREVIOUSLY AUTHORIZED BY DOCTOR: NICHOLE ESPANA triamterene 37.5 mg-hydrochlorothiazide 25 mg capsule RxNorm: 933910 1 Capsule(s) PO daily 05/27/2016 05/21/2017 Inactive terazosin 2 mg capsule RxNorm: 613408 1 Capsule(s) PO daily 08/19/2016 Inactive terazosin 2 mg capsule RxNorm: 556379 1 Capsule(s) PO daily 04/21/2016 Inactive terazosin 5 mg capsule RxNorm: 185037 1/2 Tablet(s) PO QPM 04/21/2016 Inactive Toprol XL 25 mg tablet,extended release RxNorm: 306493 1 Tablet(s) PO daily 04/16/2016 04/15/2016 Inactive Toprol XL 25 mg tablet,extended release RxNorm: 508232 1 Tablet(s) PO daily 04/16/2016 08/13/2016 Inactive pantoprazole 40 mg tablet,delayed release RxNorm: 143474 1 Tablet(s) PO daily 04/16/2016 04/15/2016 Inactive pantoprazole 40 mg tablet,delayed release RxNorm: 037147 1 Tablet(s) PO daily 04/16/2016 01/15/2017 Inactive Toprol XL 50 mg tablet,extended release RxNorm: 801912 1 Tablet(s) PO daily 02/28/2016 04/15/2016 Inactive terazosin 5 mg capsule RxNorm: 295591 1 Tablet(s) PO QPM 201504/18/2016 Inactive oxycodone 5 mg tablet RxNorm: 9277522 1 Tablet(s) PO UD 1/2 at 3pm, 1 pill at 9pm and may take up to 2 pills bid if needed. 01/03/2016 06/27/2016 Inactive Toprol XL 50 mg tablet,extended release RxNorm: 878680 1 Tablet(s) PO daily 11/15/2015 02/27/2016 Inactive terazosin 5 mg capsule RxNorm: 139284 1 Tablet(s) PO QPM 201501/01/2016 Inactive Lipitor 20 mg tablet RxNorm: 360252 1 Tablet(s) QHS TAKE 1 TABLET BY MOUTH ONCE DAILY AT BEDTIME. 06/01/2015 05/25/2016 Inactive Generic For:LIPITOR 20MG 2014 11:51:16 AM N O T I C E PRESCRIPTION PREVIOUSLY AUTHORIZED BY DOCTOR: NICHOLE ESPANA Kenalog 40 mg/mL suspension for injection RxNorm: 3684233 1 Milliliter(s) Inj 05/25/2015 05/25/2015 Inactive terazosin 5 mg capsule RxNorm: 829910 1 Tablet(s) PO QPM 201407/05/2015 Inactive Toprol XL 50 mg tablet,extended release RxNorm: 743425 1 Tablet(s) PO daily 05/04/2015 10/30/2015 Inactive terazosin 5 mg capsule RxNorm: 983590 1 Tablet(s) PO QPM 201405/03/2015 Inactive triamterene 37.5 mg-hydrochlorothiazide 25 mg capsule RxNorm: 413396 1 Capsule(s) PO daily 04/26/2015 05/26/2016 Inactive Voltaren 1 % topical gel RxNorm: 067002 4 Gram(s) TOP QID to knees 04/19/2015 07/17/2015 Inactive Lipitor 20 mg tablet RxNorm: 304197 Tablet(s) TAKE 1 TABLET BY MOUTH ONCE DAILY AT BEDTIME. 04/13/2015 05/31/2015 Inactive Generic For:LIPITOR 20MG 03/24/2015 11: 51:16 AM N O T I C E PRESCRIPTION PREVIOUSLY AUTHORIZED BY DOCTOR:NICHOLE ESPANA Lipitor 20 mg tablet RxNorm: 545742 TAKE 1 TABLET BY MOUTH ONCE DAILY AT BEDTIME. 03/24/2015 04/12/2015 Inactive Generic For:LIPITOR 20MG 03/24/2015 11:51:16 AM N O T I C E PRESCRIPTION PREVIOUSLY AUTHORIZED BY DOCTOR:NICHOLE ESPANA Lipitor 20 mg tablet RxNorm: 071876 TAKE 1 TABLET BY MOUTH ONCE DAILY AT BEDTIME. 03/24/2015 03/23/2015 Inactive Generic For:LIPITOR 20MG 03/24/2015 11:51:16 AM N O T I C E PRESCRIPTION PREVIOUSLY AUTHORIZED BY DOCTOR:NICHOLE ESPANA [phone] Lipitor 20 mg tablet RxNorm: 316922 1 Tablet(s) PO daily 201403/23/2015 Inactive Toprol XL 50 mg tablet,extended release RxNorm: 206800 1 Tablet(s) PO daily 03/08/2015 05/03/2015 Inactive Toprol XL 50 mg tablet,extended release RxNorm: 172877 1 Tablet(s) PO daily 03/08/2015 03/07/2015 Inactive Toprol XL 50 mg tablet,extended release RxNorm: 084188 1 Tablet(s) PO daily 03/07/2015 03/07/2015 Inactive triamterene 37.5 mg-hydrochlorothiazide 25 mg capsule RxNorm: 992929 1 Capsule(s) PO daily 01/26/2015 04/25/2015 Inactive Hytrin 5 mg tablet RxNorm: 661745 1 Tablet(s) PO QPM 201403/25/2015 Inactive triamterene 37.5 mg-hydrochlorothiazide 25 mg capsule RxNorm: 501932 1 Capsule(s) PO daily 01/25/2015 01/25/2015 Inactive Voltaren 1 % topical gel RxNorm: 732724 4 Gram(s) TOP QID to knees 11/23/2014 02/20/2015 Inactive aspirin 81 mg chewable tablet RxNorm: 794838 1 Tablet(s) PO daily 09/20/2014 12/02/2017 Active azithromycin 250 mg tablet RxNorm: 926702 2 Tablet(s) PO on day #1, then 1 pill on days #2-5 09/20/2014 04/02/2015 Inactive [SAVINGS FOR NON-COVERED DRUGS -- BIN: 384349, PCN: ASPROD1, Group: XXXXX, ID# XXXXXXX, Questions: . THIS IS NOT INSURANCE.] triamterene 37.5 mg-hydrochlorothiazide 25 mg capsule RxNorm: 836600 1 Capsule(s) PO daily 09/20/2014 01/24/2015 Inactive Keflex 500 mg capsule RxNorm: 401552 1 Capsule(s) PO TID 201409/26/2014 Inactive PLEASE CALL PT TO LET HIM KNOW THAT THE ANTIBIOTICS ARE READY FOR POURER - START ON 09/21/14 Hytrin 5 mg tablet RxNorm: 571854 1 Tablet(s) PO QPM 201401/24/2015 Inactive Vitamin C 500 mg chewable tablet RxNorm: 565864 1 Tablet(s) PO daily 09/20/2014 08/27/2016 Inactive Toprol XL 50 mg tablet,extended release RxNorm: 796661 1 Tablet(s) PO daily 09/20/2014 03/06/2015 Inactive prednisone 20 mg tablet RxNorm: 658688 3 Tablet(s) PO daily 09/24/2014 Inactive [SAVINGS FOR NON-COVERED DRUGS -- BIN:088170, PCN: ASPROD1, Group: XXXXX, ID# [id number], Questions: . THIS IS NOT INSURANCE.] Vitamin D3 1,000 unit capsule RxNorm: 094303 1 Capsule(s) PO daily 09/20/2014 08/27/2016 Inactive fish oil-dha-epa 1,200 mg-144 mg-216 mg capsule RxNorm: 1 Capsule(s) PO daily 09/20/2014 08/27/2016 Inactive Lipitor 20 mg tablet RxNorm: 490511 1 Tablet(s) PO daily 201403/23/2015 Inactive naproxen sodium 220 mg tablet RxNorm: 583602 1 Tablet(s) PO BID as needed for pain 09/20/2014 01/02/2016 Inactive penicillin V potassium 500 mg tablet RxNorm: 619196 1 Tablet(s) PO daily - Prescribed by Dr. Adam No Start Date Active Fish Oil 360 mg-1,200 mg capsule RxNorm: 194430 1 Capsule(s) PO daily No Start Date Active Vitamin D3 2,000 unit tablet RxNorm: 998787 1 Tablet(s) PO daily No Start Date Active naproxen 250 mg tablet RxNorm: 708110 Tablet(s) PO BID as needed No Start Date Active Stool Softener 100 mg capsule RxNorm: 3786876 1 Capsule(s) PO BID No Start Date Active Probiotic oral RxNorm : 6205 oral No Start Date Active Vitamin C 1,000 mg tablet RxNorm: 084594 1 Tablet(s) PO daily No Start Date Active rifampin 150 mg capsule RxNorm: 480110 1 Capsule(s) PO daily No Start Date 08/26/2016 Inactive calcium carbonate 550 mg chewable tablet RxNorm: 829506 1 Tablet(s) PO QID as needed No Start Date 08/26/2016 Inactive clobetasol 0.05 % topical cream RxNorm: 757148 1 Application TOP daily as needed No Start Date 01/16/2017 Inactive Medication Administered Medication Codes Instructions Start Date Status ceftriaxone 500 mg solution for injection RxNorm: 2745898 1Milliliter 08/27/2016 No longer Active Kenalog 40 mg/mL suspension for injection RxNorm: 0416752 1Milliliter 05/25/2015 No longer Active Immunizations Vaccine [...] Code Item Item Code Result Date %Hba1C Psm678 % HbA1c 73951-6 6.4 % 10/04/2015 %Hba1C Pdz556 Gluc Ave 137 mg/dL 10/04/2015 Comp Metabolic Lvu952 NA 139 mEq/L 10/04/2015 Comp Metabolic Gcd702 K 3.8 mEq/L 10/04/2015 Comp Metabolic Ngs842 CL 104 mEq/L 10/04/2015 Comp Metabolic Cwz950 CO2 32.0 mEq/L 10/04/2015 Comp Metabolic Swm832 ANION GAP 7 10/04/2015 Comp Metabolic Vvm041 GLUCOSE 112 mg/dL 10/04/2015 Comp Metabolic Usp656 Creat 0.8 mg/dL 10/04/2015 Comp Metabolic Wwc026 eGFR 102 ml/min/1.73m2 10/04/2015 Comp Metabolic Tfa757 BUN 16 mg/dL 10/04/2015 Comp Metabolic Tca883 B/C Ratio 20.5 Ratio 10/04/2015 Comp Metabolic Jct492 CALCIUM 9.3 mg/dL 10/04/2015 Comp Metabolic Ruz366 ALK PHOS 87 U/L 10/04/2015 Comp Metabolic Ksq531 AST(SGOT) 17 U/L 10/04/2015 Comp Metabolic Iuz745 ALT(SGPT) 24 U/L 10/04/2015 Comp Metabolic Bzd716 BILI T 0.6 mg/dL 10/04/2015 Comp Metabolic Yjm566 ALBUMIN 4.0 g/dL 10/04/2015 Comp Metabolic Qft117 TPRO 6.3 g/dL 10/04/2015 Comp Metabolic Vlq627 GLOB 2.3 g/dL 10/04/2015 Comp Metabolic Vyk265 A/G Ratio 1.7 Ratio 10/04/2015 Comp Metabolic Lon207 Osmo 279 mOsmo 10/04/2015 Lipid Ord30 CHOL [...] 42.3 % 10/04/2015 Cbc With Differential Ord2 MCV 94.6 fl 10/04/2015 Cbc With Differential Ord2 Lymph% 22.2 % 10/04/2015 Cbc With Differential Ord2 MCH 31.3 pg 10/04/2015 Cbc With Differential Ord2 [place]% 9.1 % 10/04/2015 Cbc With Differential Ord2 [...] 1.46 K/ul 10/04/2015 Cbc With Differential Ord2 [place] ABS# 0.6 K/ul 10/04/2015 Cbc With Differential Ord2 Eos ABS# 0.4 K/ul 10/04/2015 Cbc With Differential Ord2 Baso ABS# 0.1 K/ul 10/04/2015 %Hba1C Cuo066 % HbA1c 58294-4 6.5 % 11/24/2014 %Hba1C Pcr941 Gluc Ave 140 mg/dL 11/24/2014 Lipid Ord30 CHOL 121 mg/dL 11/23/2014 Lipid Ord30 HDL 37.0 mg/dl 11/23/2014 Lipid Ord30 TRIG 93 mg/dL 11/23/2014 Lipid Ord30 LDL 65 mg/dL 11/23/2014 Lipid Ord30 C/HDL 3.3 Ratio 11/23/2014 Comp Metabolic Gec443 NA 135 mEq/L 11/23/2014 Comp Metabolic Euf423 K 3.7 mEq/L 11/23/2014 Comp Metabolic Ory525 CL 101 mEq/L 11/23/2014 Comp Metabolic Cep309 CO2 28.0 mEq/L 11/23/2014 Comp Metabolic Ujd144 ANION GAP 10 11/23/2014 Comp Metabolic Wpg457 GLUCOSE 104 mg/dL 11/23/2014 Comp Metabolic Iev795 Creat 0.8 mg/dL 11/23/2014 Comp Metabolic Eoz617 eGFR 104 ml/min/1.73m2 11/23/2014 Comp Metabolic Mjv011 BUN 10 mg/dL 11/23/2014 Comp Metabolic Sci712 B/C Ratio 13.0 Ratio 11/23/2014 Comp Metabolic Ieh025 CALCIUM 9.7 mg/dL 11/23/2014 Comp Metabolic Vbw246 ALK PHOS 92 U/L 11/23/2014 Comp Metabolic Isq059 AST(SGOT) 17 U/L 11/23/2014 Comp Metabolic Zzy142 ALT(SGPT) 26 U/L 11/23/2014 Comp Metabolic Kqn335 BILI T 1.1 mg/dL 11/23/2014 Comp Metabolic Fni037 ALBUMIN 4.1 g/dL 11/23/2014 Comp Metabolic Zjk287 TPRO 6.3 g/dL 11/23/2014 Comp Metabolic Rvn907 GLOB 2.2 g/dL 11/23/2014 Comp Metabolic Cbl838 A/G Ratio 1.9 Ratio 11/23/2014 Comp Metabolic Mmm255 Osmo 269 mOsmo 11/23/2014 Cbc With Differential [...] MG CPT-4: J0696 08/27/2016 DRAIN/INJECT JOINT/BURSA CPT-4: 95920 05/25/2015 TRIAMCINOLONE ACET INJ NOS CPT-4: J3301 05/25/2015 TRIAMCINOLONE ACET INJ NOS CPT-4: J3301 09/20/2014 ROCEPHIN, PER 250 MG CPT-4: J0696 09/20/2014 THER/PROPH/DIAG INJ SC/IM CPT-4: 86115 09/20/2014 Vital Signs Date Vital 05/21/2017 Blood Pressure 1: 118/80 Code : 8480-6 BMI: 32.2 Code : 81336-4 Heart Rate 1 : 76 bpm Height: 5'9" SpO2: 98% Weight: 218 lbs 01/16/2017 Blood Pressure 1: 132/78 Code : 8480-6 BMI: 31.0 Code : 12874-9 Heart Rate 1 : 63 bpm Height: 5'9" SpO2: 98% Weight: 210 lbs 08/27/2016 Blood Pressure 1: 128/72 Code : 8480-6 BMI: 30.4 Code : 72616-0 Heart Rate 1 : 69 bpm Height: 5'9" SpO2: 95% Temperature: 37.1 (C) / 98.7 (F) Weight: 206 lbs 05/30/2016 Blood Pressure 1: 136/64 Code : 8480-6 BMI: 30.7 Code : 47915-4 Heart Rate 1 : 77 bpm Height: 5'9" SpO2: 94% Weight: 208 lbs 04/19/2016 Blood Pressure 1: 108/68 Code : 8480-6 BMI: 28.8 Code : 27541-1 Height: 5'9" SpO2: 97% Weight: 195 lbs 01/03/2016 Blood Pressure 1: 120/70 Code : 8480-6 BMI: 31.0 Code : 82822-0 Heart Rate 1 : 81 bpm Height: 5'9" SpO2: 98% Weight: 210 lbs 10/03/2015 Blood Pressure 1: 128/68 Code : 8480-6 BMI: 31.7 Code : 82152-4 Heart Rate 1 : 60 bpm Height: 5'9" SpO2: 97% Weight: 215 lbs 05/25/2015 Blood Pressure 1: 138/84 Code : 8480-6 BMI: 32.6 Code : 46889-1 Heart Rate 1 : 60 bpm Height: 5'9" SpO2: 96% Weight: 221 lbs 04/03/2015 Blood Pressure 1: 142/74 Code : 8480-6 Blood Pressure 1: 136/70 Code: 8480-6 BMI: 32.5 Code: 59670-9 Heart Rate 1: 59 bpm Height: 5'9" SpO2: 94% Weight: 220 lbs 11/23/2014 Blood Pressure 1: 138/72 Code : 8480-6 BMI: 32.0 Code : 45099-5 Heart Rate 1 : 61 bpm Height: [...] data Encounters Encounter Performer Location Codes Date ([id number]) [id number] EST. PATIENT, LEVEL IV Diagnosis: Essential (primary) hypertension[ICD10: I10] Diagnosis: Other abnormal glucose[ICD10: R73.09] Diagnosis: Rash and other nonspecific skin eruption[ICD10: R21] Diagnosis: Pain in right knee[ICD10: M25.561] Diagnosis: Impaired fasting glucose[ICD10: R73.01] [facility] CPT-4: 33545 05/21/2017 [id number]) [id number] EST. PATIENT, LEVEL IV Diagnosis: Essential (primary) hypertension[ICD10: I10] Diagnosis: Pain in right knee[ICD10: M25.561] Diagnosis: Rash and other nonspecific skin eruption[ICD10: R21] Diagnosis: Other abnormal glucose[ICD10: R73.09] Diagnosis: Mixed hyperlipidemia[ICD10: E78.2] [facility] CPT-4: 84210 01/16/2017 ([id number]) 99126 EST. PATIENT, LEVEL IV Diagnosis: Essential (primary) hypertension[ICD10: I10] Diagnosis: Acute recurrent maxillary sinusitis[ICD10: J01.01] [facility] CPT-4: 09187 08/27/[id number]) [id number] EST. PATIENT, LEVEL IV Diagnosis: Essential (primary) hypertension[ICD10: I10] Diagnosis: Pain in right knee[ICD10: M25.561] Diagnosis: Pain in left knee[ICD10: M25.562] Andreina Hoffmann MD, [facility] CPT-4: 93824 05/30/2016 ([id number]) 32119 EST. PATIENT, LEVEL III Diagnosis: Essential (primary) hypertension[ICD10: I10] Diagnosis: Pain in right knee[ICD10: M25.561] Gisel Hoffmann MD, [facility] CPT-4: 04428 04/19/2016 ([id number]) 81536 EST. PATIENT, LEVEL IV Diagnosis: Essential (primary) hypertension[ICD10: I10] Diagnosis: Mixed hyperlipidemia[ICD10: E78.2] Diagnosis: Pain in right knee[ICD10: M25.561] Andreina Hoffmann MD, [facility] CPT-4: 91523 01/03/2016 ([id number]) 43115 EST. PATIENT, LEVEL IV Diagnosis: Essential (primary) hypertension[ICD10: I10] Diagnosis: Mixed hyperlipidemia[ICD10: E78.2] Diagnosis: Hyperglycemia, unspecified[ICD10: R73.9] Andreina Hoffmann MD, [facility] CPT-4: 57531 10/03/2015 [id number] EST. PATIENT, LEVEL IV Diagnosis: Pain in right knee[ICD10: M25.561] Tiffany Hoffmann MD, [facility] CPT-4: 90061 05/25/2015 ([id number]) 42274 EST. PATIENT, LEVEL III Diagnosis: Essential (primary) hypertension[ICD10: I10] Diagnosis: Changes in skin texture[ICD10: R23.4] Andreina Hoffmann MD, [facility] CPT-4: 72985 04/03/2015 ([id number]) 45678 EST. PATIENT, LEVEL IV Diagnosis: ESSENTIAL HYPERTENSION[ICD9: 401.9] Diagnosis: DIABETES TYPE II[ICD9: 250.00] Diagnosis: HYPERLIPIDEMIA[ICD9: 272.4] Diagnosis: OSTEOARTH NOS-UNSPEC[ICD9: 715.90] Andreina Hoffmann MD, [facility] CPT-4: 79000 11/23/2014 ([id number]) OFFICE VISIT, NEW - LEVEL 3 Diagnosis: ACUTE BRONCHITIS[ICD9: 466.0] Diagnosis: Dyspnea[ICD9: 786.09] Diagnosis: Sinusitis[ICD9: 473.9] Diagnosis: ACUTE MAXILLARY SINUSITIS[ICD9: 461.0] [facility] CPT-4: 19983 09/20/2014 Plan of Care Planned Activity Notes [...] oxycodone intermittently - refill provided today. 05/21/2017 Patient Education: Patient Medication Summary Completed 05/21/2017 Care Plan: Comp Metabolic Pending 05/21/2017 Care Plan: %Hba1C LOINC : 18724-2 Pending 05/21/2017 Care Plan: Tsh Pending 05/21/2017 Visit Plan: Hypertension - well controlled [...] provided today. 01/16/2017 Appointment: [facility] (15 min) Moderate 01/16/2017 Patient Education: Patient Medication Summary Completed 01/16/2017 Appointment: Andreina Hoffmann WPtel[facility] (15 min) Moderate 12/30/2016 Visit Plan: Hypertension [...] not improved, or if symptoms acutely worsen. rocriohin shot - 08/27/2016 Appointment: Andreina Hoffmann WPtel: [phone] [facility] (15 min) Moderate 08/27/2016 Patient Education: Patient [...] for oxycodone 05/30/2016 Appointment: Andreina Hoffmann WPtel: [facility] (15 min) Moderate 05/30/2016 Patient Education: Patient Medication Summary Completed 05/30/2016 Patient Education: Obesity Completed 05/30/2016 Appointment: Gisel Titus WPtel: [phone] (30 min) Complex 05/24/2016 Visit Plan: [...] Dr Galdamez-on IV abx-sees infection control at [place] 04/19/2016 Appointment: TachoGisel WPtel: [phone] [phone] (30 min) Complex 04/19/2016 Patient Education: Patient Medication Summary Completed 04/19/2016 Patient Education: Hypertension Completed 04/19/2016 Appointment: Margie Hoffmanny [facility] [phone] [facility] [place] (15 min) Moderate 04/03/2016 Visit [...] Medication Summary Completed 05/25/2015 Referral: Demetrius Cedeno WPtel:[phone] Referral Completed 04/19/2015 Visit Plan: Hypertension - [...] surgeons. 04/03/2015 Appointment: [facility] [phone] [facility] (15 min) Moderate 04/03/2015 Patient Education: Patient Medication Summary Completed 04/03/2015 Patient Education: Hypertension Completed 04/03/2015 Care Plan: Referral Order SNOMED-CT : [id number] Ordered 04/03/2015 Visit Plan: Hypertension - well [...] labs. 11/23/2014 Appointment: [facility] [phone] [facility] [place] ([place] New Patient 11/23/2014 Patient [...] if symptoms acutely worsen. rocephin shot - [id number] exp 12/03/14 1ML 500mg apotec kenalog [id number] exp may 2016bristol fagan squibb 09/20/2014 Patient Education: Patient Medication Summary Completed 09/20/2014 Referral: Demetrius Cedeno WPtel:[phone] Referral Appointment Requested Instructions Comment Dr. Cedeno [...] Dr Galdamez-on IV abx-sees infection control at [place] . Hypertension - well controlled - continue [...] if symptoms acutely worsen. rocephin shot - [id number] exp 12/03/14 1ML 500mg apotec kenalog [id number] exp [facility] squibb coconut oil start taking a probiotic - like culturelle or Michael Bieker - this will help to decrease the [...]
--- OUTSIDE RECORDS SUMMARY | 2018-08-26 06:48 | XMS REPORT | Continuity of Care Document ---
Author Organization Unknown Address Unknown Allergies Active Description Code Type Severity Reaction Onset Reported/Identified Relationship to Patient Clinical Status Yes No Known Drug Allergies [id number] Drug Allergy Unknown N/A 01/28/2017 Medications There is no data. Problems Date Dx Coded Attending Type Code Diagnosis Diagnosed By 04/03/1503 KARISHMA EARLY-[place] Ot Z47.1 AFTERCARE FOLLOWING JOINT REPLACEMENT CARRION 04/03/1503 KARISHMA EARLY-[place] Ot Z96.651 PRESENCE OF RIGHT ARTIFICIAL KNEE JOINT 10/19/2010 Ot 038.0 STREPTOCOCCAL SEPTICEMIA 10/19/2010 Ot 250.00 DIAB JESSICA WO COMPL, TYPE II OR UNSPEC TY 10/19/2010 Ot 278.00 OBESITY, NOS 10/19/2010 Ot 401.9 HYPERTENSION NOS 10/19/2010 Ot 414.01 CORONARY ATHEROSCLEROSIS OF [place] CORON 10/19/2010 Ot 594.2 URETHRAL CALCULUS 10/19/2010 Ot 682.6 CELLULITIS OF LEG 10/19/2010 Ot V85.32 BODY MASS INDEX 32.0-32.9, ADULT 09/18/2012 DEVEN CANELA MD Ot 562.10 DIVERTICULOSIS COLON (W/O MENT OF HEMORR 09/18/2012 DEVEN CANELA MD Ot V12.72 PERSONAL HISTORY OF COLONIC POLYPS 09/18/2012 DEVEN CANELA MD Ot V76.51 SCREEN MAL NEOP-COLON 10/17/2014 Ot 786.05 10/17/2014 Ot 786.2 10/18/2014 Ot 719.46 10/18/2014 Ot 272.4 10/18/2014 Ot 397.0 10/18/2014 Ot 401.9 10/18/2014 Ot 424.0 10/18/2014 Ot 427.81 10/18/2014 Ot 786.09 10/18/2014 Ot 401.9 10/18/2014 Ot 782.3 10/18/2014 Ot 272.4 10/18/2014 Ot 401.9 10/18/2014 Ot 427.81 10/18/2014 Ot 786.09 10/18/2014 Ot 786.2 10/18/2014 Ot 786.7 10/18/2014 DEVEN CANELA MD Ot V72.84 10/18/2014 ZEYAD OWUSU Ot 272.4 10/18/2014 ZEYAD OWUSU Ot 401.9 10/18/2014 ZEYAD OWUSU Ot 416.8 10/18/2014 Ot 786.05 10/18/2014 Ot 786.2 01/19/2015 Ot 719.46 01/19/2015 Ot 272.4 01/19/2015 Ot 397.0 01/19/2015 Ot 401.9 01/19/2015 Ot 424.0 01/19/2015 Ot 427.81 01/19/2015 Ot 786.09 01/19/2015 Ot 401.9 01/19/2015 Ot 782.3 01/19/2015 Ot 272.4 01/19/2015 Ot 401.9 01/19/2015 Ot 427.81 01/19/2015 Ot 786.09 01/19/2015 Ot 786.2 01/19/2015 Ot 786.7 01/19/2015 DEVEN CANELA MD Ot V72.84 01/19/2015 ZEYAD OWUSU Ot 272.4 01/19/2015 ZEYAD OWUSU Ot 401.9 01/19/2015 ZEYAD OWUSU Ot 416.8 01/19/2015 Ot 786.05 01/19/2015 Ot 786.2 02/23/2015 Ot 719.46 02/23/2015 Ot 272.4 02/23/2015 Ot 397.0 02/23/2015 Ot 401.9 02/23/2015 Ot 424.0 02/23/2015 Ot 427.81 02/23/2015 Ot 786.09 02/23/2015 Ot 401.9 02/23/2015 Ot 782.3 02/23/2015 Ot 272.4 02/23/2015 Ot 401.9 02/23/2015 Ot 427.81 02/23/2015 Ot 786.09 02/23/2015 Ot 786.2 02/23/2015 Ot 786.7 02/23/2015 DEVEN CANELA MD Ot V72.84 02/23/2015 ZEYAD OWUSU Ot 272.4 02/23/2015 ZEYAD OWUSU Ot 401.9 02/23/2015 ZEYAD OWUSU Ot 416.8 02/23/2015 Ot 786.05 02/23/2015 Ot 786.2 02/24/2015 Ot 719.46 02/24/2015 Ot 272.4 02/24/2015 Ot 397.0 02/24/2015 Ot 401.9 02/24/2015 Ot 424.0 02/24/2015 Ot 427.81 02/24/2015 Ot 786.09 02/24/2015 Ot 401.9 02/24/2015 Ot 782.3 02/24/2015 Ot 272.4 02/24/2015 Ot 401.9 02/24/2015 Ot 427.81 02/24/2015 Ot 786.09 02/24/2015 Ot 786.2 02/24/2015 Ot 786.7 02/24/2015 DEVEN CANELA MD Ot V72.84 02/24/2015 ZEYAD OWUSU Ot 272.4 02/24/2015 ZEYAD OWUSU Ot 401.9 02/24/2015 ZEYAD OWUSU Ot 416.8 02/24/2015 Ot 786.05 02/24/2015 Ot 786.2 03/30/2015 Ot 719.46 03/30/2015 Ot 272.4 03/30/2015 Ot 397.0 03/30/2015 Ot 401.9 03/30/2015 Ot 424.0 03/30/2015 Ot 427.81 03/30/2015 Ot 786.09 03/30/2015 Ot 401.9 03/30/2015 Ot 782.3 03/30/2015 Ot 272.4 03/30/2015 Ot 401.9 03/30/2015 Ot 427.81 03/30/2015 Ot 786.09 03/30/2015 Ot 786.2 03/30/2015 Ot 786.7 03/30/2015 DEVEN CANELA MD Ot V72.84 03/30/2015 ZEYAD OWUSU Ot 272.4 03/30/2015 ZEYAD OWUSU Ot 401.9 03/30/2015 ZEYAD OWUSU Ot 416.8 03/30/2015 Ot 786.05 03/30/2015 Ot 786.2 03/30/2015 Ot 719.46 03/30/2015 Ot 272.4 03/30/2015 Ot 397.0 03/30/2015 Ot 401.9 03/30/2015 Ot 424.0 03/30/2015 Ot 427.81 03/30/2015 Ot 786.09 03/30/2015 Ot 401.9 03/30/2015 Ot 782.3 03/30/2015 Ot 272.4 03/30/2015 Ot 401.9 03/30/2015 Ot 427.81 03/30/2015 Ot 786.09 03/30/2015 Ot 786.2 03/30/2015 Ot 786.7 03/30/2015 DEVEN CANELA MD Ot V72.84 03/30/2015 ZEYAD OWUSU Ot 272.4 03/30/2015 ZEYAD OWUSU Ot 401.9 03/30/2015 ZEYAD OWUSU Ot 416.8 03/30/2015 Ot 786.05 03/30/2015 Ot 786.2 04/17/2015 Ot 719.46 04/17/2015 Ot 272.4 04/17/2015 Ot 397.0 04/17/2015 Ot 401.9 04/17/2015 Ot 424.0 04/17/2015 Ot 427.81 04/17/2015 Ot 786.09 04/17/2015 Ot 401.9 04/17/2015 Ot 782.3 04/17/2015 Ot 272.4 04/17/2015 Ot 401.9 04/17/2015 Ot 427.81 04/17/2015 Ot 786.09 04/17/2015 Ot 786.2 04/17/2015 Ot 786.7 04/17/2015 DEVEN CANELA MD Ot V72.84 04/17/2015 ZEYAD OWUSU Ot 272.4 04/17/2015 ZEYAD OWUSU Ot 401.9 04/17/2015 ZEYAD OWUSU Ot 416.8 04/17/2015 Ot 786.05 04/17/2015 Ot 786.2 04/19/2015 Ot 719.46 04/19/2015 Ot 272.4 04/19/2015 Ot 397.0 04/19/2015 Ot 401.9 04/19/2015 Ot 424.0 04/19/2015 Ot 427.81 04/19/2015 Ot 786.09 04/19/2015 Ot 401.9 04/19/2015 Ot 782.3 04/19/2015 Ot 272.4 04/19/2015 Ot 401.9 04/19/2015 Ot 427.81 04/19/2015 Ot 786.09 04/19/2015 Ot 786.2 04/19/2015 Ot 786.7 04/19/2015 DEVEN CANELA MD Ot V72.84 04/19/2015 ZEYAD OWUSU Ot 272.4 04/19/2015 ZEYAD OWUSU Ot 401.9 04/19/2015 ZEYAD OWUSU Ot 416.8 04/19/2015 Ot 786.05 04/19/2015 Ot 786.2 08/23/2015 Ot 272.4 HYPERLIPIDEMIA NEC/NOS 08/23/2015 Ot 397.0 TRICUSPID VALVE DISEASE 08/23/2015 Ot 401.9 HYPERTENSION NOS 08/23/2015 Ot 424.0 MITRAL VALVE DISORDER 08/23/2015 Ot 427.81 SINOATRIAL NODE DYSFUNCT 08/23/2015 Ot 786.09 RESPIRATORY ABNORM NEC 08/23/2015 Ot 401.9 HYPERTENSION NOS 08/23/2015 Ot 782.3 EDEMA 08/23/2015 Ot 272.4 HYPERLIPIDEMIA NEC/NOS 08/23/2015 Ot 401.9 HYPERTENSION NOS 08/23/2015 Ot 427.81 SINOATRIAL NODE DYSFUNCT 08/23/2015 Ot 786.09 RESPIRATORY ABNORM NEC 08/23/2015 Ot 786.2 COUGH 08/23/2015 Ot 786.7 ABNORMAL CHEST SOUNDS 08/23/2015 HILTON SIERRA, DEVEN Sagastume Ot V72.84 EXAM PRE-OPERATIVE NOS 08/23/2015 ZEYAD OWUSU Ot 272.4 HYPERLIPIDEMIA NEC/NOS 08/23/2015 ZEYAD OWUSU Ot 401.9 HYPERTENSION NOS 08/23/2015 ZEYAD OWUSU Ot 416.8 CHR PULMON HEART DIS NEC 08/23/2015 Ot 786.05 SHORTNESS OF BREATH 08/23/2015 Ot 786.2 COUGH 10/03/2015 Ot 272.4 HYPERLIPIDEMIA NEC/NOS 10/03/2015 Ot 397.0 TRICUSPID VALVE DISEASE 10/03/2015 Ot 401.9 HYPERTENSION NOS 10/03/2015 Ot 424.0 MITRAL VALVE DISORDER 10/03/2015 Ot 427.81 SINOATRIAL NODE DYSFUNCT 10/03/2015 Ot 786.09 RESPIRATORY ABNORM NEC 10/03/2015 Ot 401.9 HYPERTENSION NOS 10/03/2015 Ot 782.3 EDEMA 10/03/2015 Ot 272.4 HYPERLIPIDEMIA NEC/NOS 10/03/2015 Ot 401.9 HYPERTENSION NOS 10/03/2015 Ot 427.81 SINOATRIAL NODE DYSFUNCT 10/03/2015 Ot 786.09 RESPIRATORY ABNORM NEC 10/03/2015 Ot 786.2 COUGH 10/03/2015 Ot 786.7 ABNORMAL CHEST SOUNDS 10/03/2015 DEVEN CANELA MD Ot G66.84 EXAM PRE-OPERATIVE NOS 10/03/2015 ZEYAD OWUSU Ot 272.4 HYPERLIPIDEMIA NEC/NOS 10/03/2015 ZEYAD OWUSU Ot 401.9 HYPERTENSION NOS 10/03/2015 ZEYAD OWUSU Ot 416.8 CHR PULMON HEART DIS NEC 10/03/2015 Ot 786.05 SHORTNESS OF BREATH 10/03/2015 Ot 786.2 COUGH 10/19/2015 Ot 272.4 HYPERLIPIDEMIA NEC/NOS 10/19/2015 Ot 397.0 TRICUSPID VALVE DISEASE 10/19/2015 Ot 401.9 HYPERTENSION NOS 10/19/2015 Ot 424.0 MITRAL VALVE DISORDER 10/19/2015 Ot 427.81 SINOATRIAL NODE DYSFUNCT 10/19/2015 Ot 786.09 RESPIRATORY ABNORM NEC 10/19/2015 Ot 401.9 HYPERTENSION NOS 10/19/2015 Ot 782.3 EDEMA 10/19/2015 Ot 272.4 HYPERLIPIDEMIA NEC/NOS 10/19/2015 Ot 401.9 HYPERTENSION NOS 10/19/2015 Ot 427.81 SINOATRIAL NODE DYSFUNCT 10/19/2015 Ot 786.09 RESPIRATORY ABNORM NEC 10/19/2015 Ot 786.2 COUGH 10/19/2015 Ot 786.7 ABNORMAL CHEST SOUNDS 10/19/2015 DEVEN CANELA MD Ot X79.84 EXAM PRE-OPERATIVE NOS 10/19/2015 ZEYAD OWUSU Ot 272.4 HYPERLIPIDEMIA NEC/NOS 10/19/2015 ZEYAD OWUSU Ot 401.9 HYPERTENSION NOS 10/19/2015 ZEYAD OWUSU Ot 416.8 CHR PULMON HEART DIS NEC 10/19/2015 Ot 786.05 SHORTNESS OF BREATH 10/19/2015 Ot 786.2 COUGH 10/24/2015 Ot 272.4 HYPERLIPIDEMIA NEC/NOS 10/24/2015 Ot 397.0 TRICUSPID VALVE DISEASE 10/24/2015 Ot 401.9 HYPERTENSION NOS 10/24/2015 Ot 424.0 MITRAL VALVE DISORDER 10/24/2015 Ot 427.81 SINOATRIAL NODE DYSFUNCT 10/24/2015 Ot 786.09 RESPIRATORY ABNORM NEC 10/24/2015 Ot 401.9 HYPERTENSION NOS 10/24/2015 Ot 782.3 EDEMA 10/24/2015 Ot 272.4 HYPERLIPIDEMIA NEC/NOS 10/24/2015 Ot 401.9 HYPERTENSION NOS 10/24/2015 Ot 427.81 SINOATRIAL NODE DYSFUNCT 10/24/2015 Ot 786.09 RESPIRATORY ABNORM NEC 10/24/2015 Ot 786.2 COUGH 10/24/2015 Ot 786.7 ABNORMAL CHEST SOUNDS 10/24/2015 HILTON SIERRA, DEVEN Sagastume Ot V72.84 EXAM PRE-OPERATIVE NOS 10/24/2015 ZEYAD OWUSU Ot 272.4 HYPERLIPIDEMIA NEC/NOS 10/24/2015 ZEYAD OWUSU Ot 401.9 HYPERTENSION NOS 10/24/2015 ZEYAD OWUSU Ot 416.8 CHR PULMON HEART DIS NEC 10/24/2015 Ot 786.05 SHORTNESS OF BREATH 10/24/2015 Ot 786.2 COUGH 11/08/2015 Ot 272.4 HYPERLIPIDEMIA NEC/NOS 11/08/2015 Ot 397.0 TRICUSPID VALVE DISEASE 11/08/2015 Ot 401.9 HYPERTENSION NOS 11/08/2015 Ot 424.0 MITRAL VALVE DISORDER 11/08/2015 Ot 427.81 SINOATRIAL NODE DYSFUNCT 11/08/2015 Ot 786.09 RESPIRATORY ABNORM NEC 11/08/2015 Ot 401.9 HYPERTENSION NOS 11/08/2015 Ot 782.3 EDEMA 11/08/2015 Ot 272.4 HYPERLIPIDEMIA NEC/NOS 11/08/2015 Ot 401.9 HYPERTENSION NOS 11/08/2015 Ot 427.81 SINOATRIAL NODE DYSFUNCT 11/08/2015 Ot 786.09 RESPIRATORY ABNORM NEC 11/08/2015 Ot 786.2 COUGH 11/08/2015 Ot 786.7 ABNORMAL CHEST SOUNDS 11/08/2015 HILTON SIERRA, DEVEN Sagastume Ot V72.84 EXAM PRE-OPERATIVE NOS 11/08/2015 ZEYAD OWUSU Ot 272.4 HYPERLIPIDEMIA NEC/NOS 11/08/2015 ZEYAD OWUSU Ot 401.9 HYPERTENSION NOS 11/08/2015 ZEYAD OWUSU Ot 416.8 CHR PULMON HEART DIS NEC 11/08/2015 Ot 786.05 SHORTNESS OF BREATH 11/08/2015 Ot 786.2 COUGH 11/08/2015 MARKO SIERRA, LAURA Mata Ot M17.11 UNILATERAL PRIMARY OSTEOARTHRITIS, RIGHT 11/08/2015 MARKO SIERRA, LAURA Mata Ot R53.83 OTHER FATIGUE 11/08/2015 LAURA ZHU MD Ot Z01.811 ENCOUNTER FOR PREPROCEDURAL RESPIRATORY 11/08/2015 LAURA ZHU MD Ot Z01.812 ENCOUNTER FOR PREPROCEDURAL LABORATORY E 11/08/2015 LAURA ZHU MD Ot Z11.2 ENCOUNTER FOR SCREENING FOR OTHER BACTER 11/09/2015 LAURA ZHU MD Ot M17.11 UNILATERAL PRIMARY OSTEOARTHRITIS, RIGHT 11/09/2015 LAURA ZHU MD Ot R53.83 OTHER FATIGUE 11/09/2015 LAURA ZHU MD Ot Z01.811 ENCOUNTER FOR PREPROCEDURAL RESPIRATORY 11/09/2015 LAURA ZHU MD Ot Z01.812 ENCOUNTER FOR PREPROCEDURAL LABORATORY E 11/09/2015 LAURA ZHU MD Ot Z11.2 ENCOUNTER FOR SCREENING FOR OTHER BACTER 11/11/2015 Ot 272.4 HYPERLIPIDEMIA NEC/NOS 11/11/2015 Ot 397.0 TRICUSPID VALVE DISEASE 11/11/2015 Ot 401.9 HYPERTENSION NOS 11/11/2015 Ot 424.0 MITRAL VALVE DISORDER 11/11/2015 Ot 427.81 SINOATRIAL NODE DYSFUNCT 11/11/2015 Ot 786.09 RESPIRATORY ABNORM NEC 11/11/2015 Ot 401.9 HYPERTENSION NOS 11/11/2015 Ot 782.3 EDEMA 11/11/2015 Ot 272.4 HYPERLIPIDEMIA NEC/NOS 11/11/2015 Ot 401.9 HYPERTENSION NOS 11/11/2015 Ot 427.81 SINOATRIAL NODE DYSFUNCT 11/11/2015 Ot 786.09 RESPIRATORY ABNORM NEC 11/11/2015 Ot 786.2 COUGH 11/11/2015 Ot 786.7 ABNORMAL CHEST SOUNDS 11/11/2015 DEVEN CANELA MD Ot V72.84 EXAM PRE-OPERATIVE NOS 11/11/2015 ZEYAD OWUSU Ot 272.4 HYPERLIPIDEMIA NEC/NOS 11/11/2015 ZEYAD OWUSU Ot 401.9 HYPERTENSION NOS 11/11/2015 ZEYAD OWUSU Ot 416.8 CHR PULMON HEART DIS NEC 11/11/2015 Ot 786.05 SHORTNESS OF BREATH 11/11/2015 Ot 786.2 COUGH 11/14/2015 Ot 272.4 HYPERLIPIDEMIA NEC/NOS 11/14/2015 Ot 397.0 TRICUSPID VALVE DISEASE 11/14/2015 Ot 401.9 HYPERTENSION NOS 11/14/2015 Ot 424.0 MITRAL VALVE DISORDER 11/14/2015 Ot 427.81 SINOATRIAL NODE DYSFUNCT 11/14/2015 Ot 786.09 RESPIRATORY ABNORM NEC 11/14/2015 Ot 401.9 HYPERTENSION NOS 11/14/2015 Ot 782.3 EDEMA 11/14/2015 Ot 272.4 HYPERLIPIDEMIA NEC/NOS 11/14/2015 Ot 401.9 HYPERTENSION NOS 11/14/2015 Ot 427.81 SINOATRIAL NODE DYSFUNCT 11/14/2015 Ot 786.09 RESPIRATORY ABNORM NEC 11/14/2015 Ot 786.2 COUGH 11/14/2015 Ot 786.7 ABNORMAL CHEST SOUNDS 11/14/2015 DEVEN CANELA MD Ot V72.84 EXAM PRE-OPERATIVE NOS 11/14/2015 ZEYAD OWUSU Ot 272.4 HYPERLIPIDEMIA NEC/NOS 11/14/2015 ZEYAD OWUSU Ot 401.9 HYPERTENSION NOS 11/14/2015 ZEYAD OWUSU Ot 416.8 CHR PULMON HEART DIS NEC 11/14/2015 Ot 786.05 SHORTNESS OF BREATH 11/14/2015 Ot 786.2 COUGH 11/22/2015 Ot 272.4 HYPERLIPIDEMIA NEC/NOS 11/22/2015 Ot 397.0 TRICUSPID VALVE DISEASE 11/22/2015 Ot 401.9 HYPERTENSION NOS 11/22/2015 Ot 424.0 MITRAL VALVE DISORDER 11/22/2015 Ot 427.81 SINOATRIAL NODE DYSFUNCT 11/22/2015 Ot 786.09 RESPIRATORY ABNORM NEC 11/22/2015 Ot 401.9 HYPERTENSION NOS 11/22/2015 Ot 782.3 EDEMA 11/22/2015 Ot 272.4 HYPERLIPIDEMIA NEC/NOS 11/22/2015 Ot 401.9 HYPERTENSION NOS 11/22/2015 Ot 427.81 SINOATRIAL NODE DYSFUNCT 11/22/2015 Ot 786.09 RESPIRATORY ABNORM NEC 11/22/2015 Ot 786.2 COUGH 11/22/2015 Ot 786.7 ABNORMAL CHEST SOUNDS 11/22/2015 HILTON SIERRA, DEVEN Sagastume Ot V72.84 EXAM PRE-OPERATIVE NOS 11/22/2015 ZEYAD OWUSU Ot 272.4 HYPERLIPIDEMIA NEC/NOS 11/22/2015 ZEYAD OWUSU Ot 401.9 HYPERTENSION NOS 11/22/2015 ZEYAD OUWSU Ot 416.8 CHR PULMON HEART DIS NEC 11/22/2015 Ot 786.05 SHORTNESS OF BREATH 11/22/2015 Ot 786.2 COUGH 11/25/2015 LAURA ZHU MD Ot D62 ACUTE POSTHEMORRHAGIC ANEMIA 11/25/2015 LAURA ZHU MD Ot E78.5 HYPERLIPIDEMIA, UNSPECIFIED 11/25/2015 LAURA ZHU MD Ot I10 ESSENTIAL (PRIMARY) HYPERTENSION 11/25/2015 LAURA ZHU MD Ot K59.00 CONSTIPATION, UNSPECIFIED 11/25/2015 LAURA ZHU MD Ot M17.11 UNILATERAL PRIMARY OSTEOARTHRITIS, RIGHT 01/01/2016 LAURA ZHU MD Ot Z47.1 AFTERCARE FOLLOWING JOINT REPLACEMENT CARRION 01/01/2016 LAURA ZHU MD Ot Z96.651 PRESENCE OF RIGHT ARTIFICIAL KNEE JOINT 02/02/2016 LAURA ZHU MD Ot Z47.1 AFTERCARE FOLLOWING JOINT REPLACEMENT CARRION 02/02/2016 LAURA ZHU MD Ot Z96.651 PRESENCE OF RIGHT ARTIFICIAL KNEE JOINT 02/08/2016 LAURA ZHU MD Ot Z47.1 AFTERCARE FOLLOWING JOINT REPLACEMENT CARRION 02/08/2016 LAURA ZHU MD Ot Z96.651 PRESENCE OF RIGHT ARTIFICIAL KNEE JOINT 03/12/2016 Ot 272.4 HYPERLIPIDEMIA NEC/NOS 03/12/2016 Ot 397.0 TRICUSPID VALVE DISEASE 03/12/2016 Ot 401.9 HYPERTENSION NOS 03/12/2016 Ot 424.0 MITRAL VALVE DISORDER 03/12/2016 Ot 427.81 SINOATRIAL NODE DYSFUNCT 03/12/2016 Ot 786.09 RESPIRATORY ABNORM NEC 03/12/2016 Ot 401.9 HYPERTENSION NOS 03/12/2016 Ot 782.3 EDEMA 03/12/2016 Ot 272.4 HYPERLIPIDEMIA NEC/NOS 03/12/2016 Ot 401.9 HYPERTENSION NOS 03/12/2016 Ot 427.81 SINOATRIAL NODE DYSFUNCT 03/12/2016 Ot 786.09 RESPIRATORY ABNORM NEC 03/12/2016 Ot 786.2 COUGH 03/12/2016 Ot 786.7 ABNORMAL CHEST SOUNDS 03/12/2016 DEVEN CANELA MD Ot V71.84 EXAM PRE-OPERATIVE NOS 03/12/2016 ZEYAD OWUSU Ot 272.4 HYPERLIPIDEMIA NEC/NOS 03/12/2016 ZEYAD OWUSU Ot 401.9 HYPERTENSION NOS 03/12/2016 ZEYAD OWUSU Ot 416.8 CHR PULMON HEART DIS NEC 03/12/2016 Ot 786.05 SHORTNESS OF BREATH 03/12/2016 Ot 786.2 COUGH 03/12/2016 Ot 272.4 HYPERLIPIDEMIA NEC/NOS 03/12/2016 Ot 397.0 TRICUSPID VALVE DISEASE 03/12/2016 Ot 401.9 HYPERTENSION NOS 03/12/2016 Ot 424.0 MITRAL VALVE DISORDER 03/12/2016 Ot 427.81 SINOATRIAL NODE DYSFUNCT 03/12/2016 Ot 786.09 RESPIRATORY ABNORM NEC 03/12/2016 Ot 401.9 HYPERTENSION NOS 03/12/2016 Ot 782.3 EDEMA 03/12/2016 Ot 272.4 HYPERLIPIDEMIA NEC/NOS 03/12/2016 Ot 401.9 HYPERTENSION NOS 03/12/2016 Ot 427.81 SINOATRIAL NODE DYSFUNCT 03/12/2016 Ot 786.09 RESPIRATORY ABNORM NEC 03/12/2016 Ot 786.2 COUGH 03/12/2016 Ot 786.7 ABNORMAL CHEST SOUNDS 03/12/2016 DEVEN CANELA MD Ot V70.84 EXAM PRE-OPERATIVE NOS 03/12/2016 ZEYAD OWUSU Ot 272.4 HYPERLIPIDEMIA NEC/NOS 03/12/2016 ZEYAD OWUSU Ot 401.9 HYPERTENSION NOS 03/12/2016 ZEYAD OWUSU Ot 416.8 CHR PULMON HEART DIS NEC 03/12/2016 Ot 786.05 SHORTNESS OF BREATH 03/12/2016 Ot 786.2 COUGH 03/23/2016 VERONICA EL MD, Ot A41.9 SEPSIS, UNSPECIFIED ORGANISM 03/23/2016 VERONICA EL MD Ot I10 ESSENTIAL (PRIMARY) HYPERTENSION 03/23/2016 VERONICA EL MD Ot M00.861 ARTHRITIS DUE TO OTHER BACTERIA, RIGHT K 03/23/2016 VERONICA EL MD Ot M79.661 PAIN IN RIGHT LOWER LEG 03/23/2016 VERONICA EL MD Ot Z79.82 SKILLED NURSING (CURRENT) USE OF ASPIRIN 03/23/2016 VERONICA EL MD Ot Z79.899 OTHER SKILLED NURSING (CURRENT) DRUG THERAPY 03/23/2016 VERONICA EL MD Ot Z87.891 PERSONAL HISTORY OF NICOTINE DEPENDENCE 03/23/2016 VERONICA EL MD Ot Z96.651 PRESENCE OF RIGHT ARTIFICIAL KNEE JOINT 03/25/2016 VERONICA EL MD Ot A41.9 SEPSIS, UNSPECIFIED ORGANISM 03/25/2016 VERONICA EL MD Ot I10 ESSENTIAL (PRIMARY) HYPERTENSION 03/25/2016 VERONICA EL MD Ot M00.861 ARTHRITIS DUE TO OTHER BACTERIA, RIGHT K 03/25/2016 VERONICA EL MD Ot M79.661 PAIN IN RIGHT LOWER LEG 03/25/2016 VERONICA EL MD Ot Z79.82 SKILLED NURSING (CURRENT) USE OF ASPIRIN 03/25/2016 VERONICA EL MD Ot Z79.899 OTHER SKILLED NURSING (CURRENT) DRUG THERAPY 03/25/2016 VERONICA EL MD Ot Z87.891 PERSONAL HISTORY OF NICOTINE DEPENDENCE 03/25/2016 VERONICA EL MD Ot Z96.651 PRESENCE OF RIGHT ARTIFICIAL KNEE JOINT 04/04/2016 Ot 272.4 HYPERLIPIDEMIA NEC/NOS 04/04/2016 Ot 397.0 TRICUSPID VALVE DISEASE 04/04/2016 Ot 401.9 HYPERTENSION NOS 04/04/2016 Ot 424.0 MITRAL VALVE DISORDER 04/04/2016 Ot 427.81 SINOATRIAL NODE DYSFUNCT 04/04/2016 Ot 786.09 RESPIRATORY ABNORM NEC 04/04/2016 Ot 401.9 HYPERTENSION NOS 04/04/2016 Ot 782.3 EDEMA 04/04/2016 Ot 272.4 HYPERLIPIDEMIA NEC/NOS 04/04/2016 Ot 401.9 HYPERTENSION NOS 04/04/2016 Ot 427.81 SINOATRIAL NODE DYSFUNCT 04/04/2016 Ot 786.09 RESPIRATORY ABNORM NEC 04/04/2016 Ot 786.2 COUGH 04/04/2016 Ot 786.7 ABNORMAL CHEST SOUNDS 04/04/2016 DEVEN CANELA MD Ot V72.84 EXAM PRE-OPERATIVE NOS 04/04/2016 ZEYAD OWUSU Ot 272.4 HYPERLIPIDEMIA NEC/NOS 04/04/2016 ZEYAD OWUSU Ot 401.9 HYPERTENSION NOS 04/04/2016 ZEYAD OWUSU Ot 416.8 CHR PULMON HEART DIS NEC 04/04/2016 Ot 786.05 SHORTNESS OF BREATH 04/04/2016 Ot 786.2 COUGH 04/05/2016 Ot 272.4 HYPERLIPIDEMIA NEC/NOS 04/05/2016 Ot 397.0 TRICUSPID VALVE DISEASE 04/05/2016 Ot 401.9 HYPERTENSION NOS 04/05/2016 Ot 424.0 MITRAL VALVE DISORDER 04/05/2016 Ot 427.81 SINOATRIAL NODE DYSFUNCT 04/05/2016 Ot 786.09 RESPIRATORY ABNORM NEC 04/05/2016 Ot 401.9 HYPERTENSION NOS 04/05/2016 Ot 782.3 EDEMA 04/05/2016 Ot 272.4 HYPERLIPIDEMIA NEC/NOS 04/05/2016 Ot 401.9 HYPERTENSION NOS 04/05/2016 Ot 427.81 SINOATRIAL NODE DYSFUNCT 04/05/2016 Ot 786.09 RESPIRATORY ABNORM NEC 04/05/2016 Ot 786.2 COUGH 04/05/2016 Ot 786.7 ABNORMAL CHEST SOUNDS 04/05/2016 DEVEN CANELA MD Ot V72.84 EXAM PRE-OPERATIVE NOS 04/05/2016 ZEYAD OWUSU Ot 272.4 HYPERLIPIDEMIA NEC/NOS 04/05/2016 ZEYAD OWUSU Ot 401.9 HYPERTENSION NOS 04/05/2016 ZEYAD OWUSU Ot 416.8 CHR PULMON HEART DIS NEC 04/05/2016 Ot 786.05 SHORTNESS OF BREATH 04/05/2016 Ot 786.2 COUGH 04/08/2016 KEN MTZ MD Ot D64.9 ANEMIA, UNSPECIFIED 04/08/2016 KEN MTZ MD Ot E78.5 HYPERLIPIDEMIA, UNSPECIFIED 04/08/2016 KEN MTZ MD Ot E88.09 OTH DISORDERS OF PLASMA-PROTEIN METABOLI 04/08/2016 KEN MTZ MD Ot I10 ESSENTIAL (PRIMARY) HYPERTENSION 04/08/2016 KEN MTZ MD Ot Z47.1 AFTERCARE FOLLOWING JOINT REPLACEMENT CARRION 04/08/2016 KEN MTZ MD Ot Z96.651 PRESENCE OF RIGHT ARTIFICIAL KNEE JOINT 04/08/2016 KEN MTZ MD Ot D64.9 ANEMIA, UNSPECIFIED 04/08/2016 KEN MTZ MD Ot E78.5 HYPERLIPIDEMIA, UNSPECIFIED 04/08/2016 KEN MTZ MD Ot E88.09 OTH DISORDERS OF PLASMA-PROTEIN METABOLI 04/08/2016 KEN MTZ MD Ot I10 ESSENTIAL (PRIMARY) HYPERTENSION 04/08/2016 KEN MTZ MD Ot Z47.1 AFTERCARE FOLLOWING JOINT REPLACEMENT CARRION 04/08/2016 KEN MTZ MD Ot Z96.651 PRESENCE OF RIGHT ARTIFICIAL KNEE JOINT 04/12/2016 KEN MTZ MD Ot D64.9 ANEMIA, UNSPECIFIED 04/12/2016 KEN MTZ MD Ot E78.5 HYPERLIPIDEMIA, UNSPECIFIED 04/12/2016 KEN MTZ MD Ot E88.09 OTH DISORDERS OF PLASMA-PROTEIN METABOLI 04/12/2016 KEN MTZ MD Ot I10 ESSENTIAL (PRIMARY) HYPERTENSION 04/12/2016 KEN MTZ MD Ot Z47.1 AFTERCARE FOLLOWING JOINT REPLACEMENT CARRION 04/12/2016 KEN MTZ MD Ot Z96.651 PRESENCE OF RIGHT ARTIFICIAL KNEE JOINT 04/12/2016 KEN MTZ MD Ot B35.1 TINEA UNGUIUM 04/12/2016 KEN MTZ MD Ot D64.9 ANEMIA, UNSPECIFIED 04/12/2016 KEN MTZ MD Ot E78.5 HYPERLIPIDEMIA, UNSPECIFIED 04/12/2016 KEN MTZ MD Ot E88.09 OTH DISORDERS OF PLASMA-PROTEIN METABOLI 04/12/2016 SMITH SIERRA, KEN Alvarenga Ot G60.9 HEREDITARY AND IDIOPATHIC NEUROPATHY, UN 04/12/2016 KEN MTZ MD Ot I10 ESSENTIAL (PRIMARY) HYPERTENSION 04/12/2016 KEN MTZ MD Ot I25.10 ATHSCL HEART DISEASE OF [place] CORONARY 04/12/2016 KEN MTZ MD Ot Z23 ENCOUNTER FOR IMMUNIZATION 04/12/2016 KEN MTZ MD Ot Z47.1 AFTERCARE FOLLOWING JOINT REPLACEMENT CARRION 04/12/2016 KEN MTZ MD Ot Z96.651 PRESENCE OF RIGHT ARTIFICIAL KNEE JOINT 04/16/2016 SYED SIERRA, [place] A Ot M00.861 ARTHRITIS DUE TO OTHER BACTERIA, RIGHT K 04/16/2016 SYED SIERRA, [place] A Ot Z96.651 PRESENCE OF RIGHT ARTIFICIAL KNEE JOINT 04/22/2016 Ot 272.4 HYPERLIPIDEMIA NEC/NOS 04/22/2016 Ot 397.0 TRICUSPID VALVE DISEASE 04/22/2016 Ot 401.9 HYPERTENSION NOS 04/22/2016 Ot 424.0 MITRAL VALVE DISORDER 04/22/2016 Ot 427.81 SINOATRIAL NODE DYSFUNCT 04/22/2016 Ot 786.09 RESPIRATORY ABNORM NEC 04/22/2016 Ot 401.9 HYPERTENSION NOS 04/22/2016 Ot 782.3 EDEMA 04/22/2016 Ot 272.4 HYPERLIPIDEMIA NEC/NOS 04/22/2016 Ot 401.9 HYPERTENSION NOS 04/22/2016 Ot 427.81 SINOATRIAL NODE DYSFUNCT 04/22/2016 Ot 786.09 RESPIRATORY ABNORM NEC 04/22/2016 Ot 786.2 COUGH 04/22/2016 Ot 786.7 ABNORMAL CHEST SOUNDS 04/22/2016 HILTON SIERRA, DEVEN Sagastume Ot V72.84 EXAM PRE-OPERATIVE NOS 04/22/2016 ZEYAD OWUSU Ot 272.4 HYPERLIPIDEMIA NEC/NOS 04/22/2016 ZEYAD OWUSU Ot 401.9 HYPERTENSION NOS 04/22/2016 ZEYAD OWUSU Ot 416.8 CHR PULMON HEART DIS NEC 04/22/2016 Ot 786.05 SHORTNESS OF BREATH 04/22/2016 Ot 786.2 COUGH 04/22/2016 SYED SIERRA, [place] A Ot M00.861 ARTHRITIS DUE TO OTHER BACTERIA, RIGHT K 04/22/2016 SYED SIERRA, [place] A Ot Z96.651 PRESENCE OF RIGHT ARTIFICIAL KNEE JOINT 04/24/2016 SYED SIERRA, [place] A Ot M00.861 ARTHRITIS DUE TO OTHER BACTERIA, RIGHT K 04/24/2016 SYED SIERRA, [facility] A Ot Z96.651 PRESENCE OF RIGHT ARTIFICIAL KNEE JOINT 05/09/2016 Ot 272.4 HYPERLIPIDEMIA NEC/NOS 05/09/2016 Ot 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4 HYPERLIPIDEMIA NEC/NOS 05/09/2016 ZEYAD OWUSU Ot 401.9 HYPERTENSION NOS 05/09/2016 ZEYAD OWUSU Ot 416.8 CHR PULMON HEART DIS NEC 05/09/2016 Ot 786.05 SHORTNESS OF BREATH 05/09/2016 Ot 786.2 COUGH 05/09/2016 SYED SIERRA, [facility] A Ot M00.861 ARTHRITIS DUE TO OTHER BACTERIA, RIGHT K 05/09/2016 SYED SIERRA, [facility] A Ot Z96.651 PRESENCE OF RIGHT ARTIFICIAL KNEE JOINT 05/12/2016 Ot 272.4 HYPERLIPIDEMIA NEC/NOS 05/12/2016 Ot 397.0 TRICUSPID VALVE DISEASE 05/12/2016 Ot 401.9 HYPERTENSION NOS 05/12/2016 Ot 424.0 MITRAL VALVE DISORDER 05/12/2016 Ot 427.81 SINOATRIAL NODE DYSFUNCT 05/12/2016 Ot 786.09 RESPIRATORY ABNORM NEC 05/12/2016 Ot 401.9 HYPERTENSION NOS 05/12/2016 Ot 782.3 EDEMA 05/12/2016 Ot 272.4 HYPERLIPIDEMIA NEC/NOS 05/12/2016 Ot 401.9 HYPERTENSION NOS 05/12/2016 Ot 427.81 SINOATRIAL NODE DYSFUNCT 05/12/2016 Ot 786.09 RESPIRATORY ABNORM NEC 05/12/2016 Ot 786.2 COUGH 05/12/2016 Ot 786.7 ABNORMAL CHEST SOUNDS 05/12/2016 DEVEN CANELA MD Ot V72.84 EXAM PRE-OPERATIVE NOS 05/12/2016 ZEYAD OWUSU Ot 272.4 HYPERLIPIDEMIA NEC/NOS 05/12/2016 ZEYAD OWUSU Ot 401.9 HYPERTENSION NOS 05/12/2016 ZEYAD OWUSU Ot 416.8 CHR PULMON HEART DIS NEC 05/12/2016 Ot 786.05 SHORTNESS OF BREATH 05/12/2016 Ot 786.2 COUGH 05/12/2016 SYED SIERRA, [place] A Ot M00.861 ARTHRITIS DUE TO OTHER BACTERIA, RIGHT K 05/12/2016 SYED SIERRA, [place] A Ot Z96.651 PRESENCE OF RIGHT ARTIFICIAL KNEE JOINT 05/12/2016 KARISHMA EARLY J2EE DEVELOPER-C Ot Z47.1 AFTERCARE FOLLOWING JOINT REPLACEMENT CARRION 05/12/2016 KARISHMA EARLY [employer]EE DEVELOPER-C Ot Z96.651 PRESENCE OF RIGHT ARTIFICIAL KNEE JOINT 05/13/2016 Ot 272.4 HYPERLIPIDEMIA NEC/NOS 05/13/2016 Ot 397.0 TRICUSPID VALVE DISEASE 05/13/2016 Ot 401.9 HYPERTENSION NOS 05/13/2016 Ot 424.0 MITRAL VALVE DISORDER 05/13/2016 Ot 427.81 SINOATRIAL NODE DYSFUNCT 05/13/2016 Ot 786.09 RESPIRATORY ABNORM NEC 05/13/2016 Ot 401.9 HYPERTENSION NOS 05/13/2016 Ot 782.3 EDEMA 05/13/2016 Ot 272.4 HYPERLIPIDEMIA NEC/NOS 05/13/2016 Ot 401.9 HYPERTENSION NOS 05/13/2016 Ot 427.81 SINOATRIAL NODE DYSFUNCT 05/13/2016 Ot 786.09 RESPIRATORY ABNORM NEC 05/13/2016 Ot 786.2 COUGH 05/13/2016 Ot 786.7 ABNORMAL CHEST SOUNDS 05/13/2016 DEVEN CANELA MD Ot V72.84 EXAM PRE-OPERATIVE NOS 05/13/2016 ZEYAD OWUSU Ot 272.4 HYPERLIPIDEMIA NEC/NOS 05/13/2016 ZEYAD OWUSU Ot 401.9 HYPERTENSION NOS 05/13/2016 ZEYAD OWUSU Ot 416.8 CHR PULMON HEART DIS NEC 05/13/2016 Ot 786.05 SHORTNESS OF BREATH 05/13/2016 Ot 786.2 COUGH 05/13/2016 SYED SIERRA, [place] A Ot M00.861 ARTHRITIS DUE TO OTHER BACTERIA, RIGHT K 05/13/2016 SYED SIERRA, [place] A Ot Z96.651 PRESENCE OF RIGHT ARTIFICIAL KNEE JOINT 05/13/2016 EASTKARISHMA APPLE J2EE DEVELOPER-C Ot Z47.1 AFTERCARE FOLLOWING JOINT REPLACEMENT CARRION 05/13/2016 EASTERKARISHMA J2EE DEVELOPER-C Ot Z96.651 PRESENCE OF RIGHT ARTIFICIAL KNEE JOINT 05/13/2016 EASTKARISHMA APPLE J2EE DEVELOPER-C Ot Z47.1 AFTERCARE FOLLOWING JOINT REPLACEMENT CARRION 05/13/2016 EASTKARISHMA APPLE J2EE DEVELOPER-C Ot Z96.651 PRESENCE OF RIGHT ARTIFICIAL KNEE JOINT 05/20/2016 Ot 272.4 HYPERLIPIDEMIA NEC/NOS 05/20/2016 Ot 397.0 TRICUSPID VALVE DISEASE 05/20/2016 Ot 401.9 HYPERTENSION NOS 05/20/2016 Ot 424.0 MITRAL VALVE DISORDER 05/20/2016 Ot 427.81 SINOATRIAL NODE DYSFUNCT 05/20/2016 Ot 786.09 RESPIRATORY ABNORM NEC 05/20/2016 Ot 401.9 HYPERTENSION NOS 05/20/2016 Ot 782.3 EDEMA 05/20/2016 Ot 272.4 HYPERLIPIDEMIA NEC/NOS 05/20/2016 Ot 401.9 HYPERTENSION NOS 05/20/2016 Ot 427.81 SINOATRIAL NODE DYSFUNCT 05/20/2016 Ot 786.09 RESPIRATORY ABNORM NEC 05/20/2016 Ot 786.2 COUGH 05/20/2016 Ot 786.7 ABNORMAL CHEST SOUNDS 05/20/2016 HILTON SIERRA, DEVEN Sagastume Ot V72.84 EXAM PRE-OPERATIVE NOS 05/20/2016 ZEYAD OWUSU Ot 272.4 HYPERLIPIDEMIA NEC/NOS 05/20/2016 ZEYAD OWUSU Ot 401.9 HYPERTENSION NOS 05/20/2016 ZEYAD OWUSU Ot 416.8 CHR PULMON HEART DIS NEC 05/20/2016 Ot 786.05 SHORTNESS OF BREATH 05/20/2016 Ot 786.2 COUGH 05/20/2016 SYED SIERRA, [place] A Ot M00.861 ARTHRITIS DUE TO OTHER BACTERIA, RIGHT K 05/20/2016 SYED SIERRA, [place] A Ot Z96.651 PRESENCE OF RIGHT ARTIFICIAL KNEE JOINT 05/20/2016 KARISHMA EARLY J2EE DEVELOPER-C Ot Z47.1 AFTERCARE FOLLOWING JOINT REPLACEMENT CARRION 05/20/2016 EASTKARISHMA APPLE J2EE DEVELOPER-C Ot Z96.651 PRESENCE OF RIGHT ARTIFICIAL KNEE JOINT 06/19/2016 EASTKARISHMA APPLE J2EE DEVELOPER-C Ot Z47.1 AFTERCARE FOLLOWING JOINT REPLACEMENT CARRION 06/19/2016 EASTKARISHMA APPLE J2EE DEVELOPER-C Ot Z96.651 PRESENCE OF RIGHT ARTIFICIAL KNEE JOINT 06/19/2016 Ot 272.4 HYPERLIPIDEMIA NEC/NOS 06/19/2016 Ot 397.0 TRICUSPID VALVE DISEASE 06/19/2016 Ot 401.9 HYPERTENSION NOS 06/19/2016 Ot 424.0 MITRAL VALVE DISORDER 06/19/2016 Ot 427.81 SINOATRIAL NODE DYSFUNCT 06/19/2016 Ot 786.09 RESPIRATORY ABNORM NEC 06/19/2016 Ot 401.9 HYPERTENSION NOS 06/19/2016 Ot 782.3 EDEMA 06/19/2016 Ot 272.4 HYPERLIPIDEMIA NEC/NOS 06/19/2016 Ot 401.9 HYPERTENSION NOS 06/19/2016 Ot 427.81 SINOATRIAL NODE DYSFUNCT 06/19/2016 Ot 786.09 RESPIRATORY ABNORM NEC 06/19/2016 Ot 786.2 COUGH 06/19/2016 Ot 786.7 ABNORMAL CHEST SOUNDS 06/19/2016 HILTON SIERRA, DEVEN Sagastume Ot V72.84 EXAM PRE-OPERATIVE NOS 06/19/2016 ZEYAD OWUSU Ot 272.4 HYPERLIPIDEMIA NEC/NOS 06/19/2016 ZEYAD OWUSU Ot 401.9 HYPERTENSION NOS 06/19/2016 ZEYAD OWUSU Ot 416.8 CHR PULMON HEART DIS NEC 06/19/2016 Ot 786.05 SHORTNESS OF BREATH 06/19/2016 Ot 786.2 COUGH 06/19/2016 SYED SIERRA, [place] A Ot M00.861 ARTHRITIS DUE TO OTHER BACTERIA, RIGHT K 06/19/2016 SYED SIERRA, [place] A Ot Z96.651 PRESENCE OF RIGHT ARTIFICIAL KNEE JOINT 06/19/2016 KARISHMA EARLY J2EE DEVELOPER-C Ot Z47.1 AFTERCARE FOLLOWING JOINT REPLACEMENT CARRION 06/19/2016 KARISHMA EARLY J2EE DEVELOPER-C Ot Z96.651 PRESENCE OF RIGHT ARTIFICIAL KNEE JOINT 07/10/2016 KARISHMA EARLY J2EE DEVELOPER-C Ot Z47.1 AFTERCARE FOLLOWING JOINT REPLACEMENT CARRION 07/10/2016 KARISHMA EARLY J2EE DEVELOPER-C Ot Z96.651 PRESENCE OF RIGHT ARTIFICIAL KNEE JOINT 01/22/2017 REDDY DO, VI K Ot E78.00 PURE HYPERCHOLESTEROLEMIA, UNSPECIFIED 01/22/2017 REDDY DO, VI K Ot I10 ESSENTIAL (PRIMARY) HYPERTENSION 01/22/2017 REDDY DO VI K Ot N20.1 CALCULUS OF URETER 01/22/2017 REDDY DO VI K Ot R10.32 LEFT LOWER QUADRANT PAIN 01/22/2017 REDDY DO VI K Ot Z79.82 SKILLED NURSING (CURRENT) USE OF ASPIRIN 01/22/2017 REDDY DO VI K Ot Z87.19 PERSONAL HISTORY OF OTHER DISEASES OF 01/22/2017 REDDY DO VI K Ot Z87.438 PERSONAL HISTORY OF OTHER DISEASES OF [place] 01/22/2017 REDDY DO VI K Ot Z87.891 PERSONAL HISTORY OF NICOTINE DEPENDENCE 01/22/2017 PAGE BLAKELY DOA K Ot Z90.49 ACQUIRED ABSENCE OF OTHER SPECIFIED PART 01/22/2017 REDDY DO VI K Ot 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 01/23/2017 REDDY DO VI K Ot E78.00 PURE HYPERCHOLESTEROLEMIA, UNSPECIFIED 01/23/2017 REDDY DO VI K Ot I10 ESSENTIAL (PRIMARY) HYPERTENSION 01/23/2017 REDDY DO VI K Ot N20.1 CALCULUS OF URETER 01/23/2017 REDDY DO VI K Ot R10.32 LEFT LOWER QUADRANT PAIN 01/23/2017 REDDY DO VI K Ot Z79.82 SKILLED NURSING (CURRENT) USE OF ASPIRIN 01/23/2017 REDDY DO VI K Ot Z87.19 PERSONAL HISTORY OF OTHER DISEASES OF 01/23/2017 REDDY DO VI K Ot Z87.438 PERSONAL HISTORY OF OTHER DISEASES OF [place] 01/23/2017 VI BLAKELY DO Ot Z87.891 PERSONAL HISTORY OF NICOTINE DEPENDENCE 01/23/2017 VI BLAKELY DO Ot Z90.49 ACQUIRED ABSENCE OF OTHER SPECIFIED PART 01/23/2017 VI BLAKELY DO Ot 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 01/24/2017 VI BLAKELY DO Ot E78.00 PURE HYPERCHOLESTEROLEMIA, UNSPECIFIED 01/24/2017 VI BLAKELY DO Ot I10 ESSENTIAL (PRIMARY) HYPERTENSION 01/24/2017 WILLOW VI HDZ Ot N20.1 CALCULUS OF URETER 01/24/2017 REDDY VI HDZ Ot R10.32 LEFT LOWER QUADRANT PAIN 01/24/2017 REDDY VI HDZ Ot Z79.82 EXTERMINATOR (CURRENT) USE OF ASPIRIN 01/24/2017 REDDY VI HDZ Ot Z87.19 PERSONAL HISTORY OF OTHER DISEASES OF [place] 01/24/2017 VI BLAKELY DO Ot Z87.438 PERSONAL HISTORY OF OTHER DISEASES OF [place] 01/24/2017 VI BLAKELY DO Ot Z87.891 PERSONAL HISTORY OF NICOTINE DEPENDENCE 01/24/2017 VI BLAKELY DO Ot Z90.49 ACQUIRED ABSENCE OF OTHER SPECIFIED PART 01/24/2017 VI BLAKELY DO Ot 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 01/28/2017 MICHELLE SIERRA, CESARIO Leiva Ot N20.1 CALCULUS OF URETER 01/28/2017 MICHELLE SIERRA, CESARIO Leiva Ot Z01.818 ENCOUNTER FOR OTHER PREPROCEDURAL EXAMIN 01/28/2017 MICHELLE SIERRA, CESARIO Leiva Ot N20.0 CALCULUS OF KIDNEY 01/28/2017 CESARIO MARTINEZ MD Ot N20.1 CALCULUS OF URETER 01/28/2017 CESARIO MARTINEZ MD Ot Z01.818 ENCOUNTER FOR OTHER PREPROCEDURAL EXAMIN 01/28/2017 MICHELLE SIERRA, CESARIO Leiva Ot N20.1 CALCULUS OF URETER 01/28/2017 MICHELLE SIERRA, CESARIO Leiva Ot Z01.818 ENCOUNTER FOR OTHER PREPROCEDURAL EXAMIN 01/28/2017 CESARIO MARTINEZ MD Ot N20.1 CALCULUS OF URETER 01/28/2017 CESARIO MARTINEZ MD Ot Z01.818 ENCOUNTER FOR OTHER PREPROCEDURAL EXAMIN 01/29/2017 VI BLAKELY DO Ot E78.00 PURE HYPERCHOLESTEROLEMIA, UNSPECIFIED 01/29/2017 VI BLAKELY DO Ot I10 ESSENTIAL (PRIMARY) HYPERTENSION 01/29/2017 VI BLAKELY DO Ot N20.1 CALCULUS OF URETER 01/29/2017 VI BLAKELY DO Ot R10.32 LEFT LOWER QUADRANT PAIN 01/29/2017 REDDY HDZ VI Duran Ot Z79.82 SKILLED NURSING (CURRENT) USE OF ASPIRIN 01/29/2017 VI BLAKELY DO Ot Z87.19 PERSONAL HISTORY OF OTHER DISEASES OF TH 01/29/2017 VI BLAKELY DO Ot Z87.438 PERSONAL HISTORY OF OTHER DISEASES OF [place] 01/29/2017 REDDY HDZ VI Duran Ot Z87.891 PERSONAL HISTORY OF NICOTINE DEPENDENCE 01/29/2017 VI BLAKELY DO Ot Z90.49 ACQUIRED ABSENCE OF OTHER SPECIFIED PART 01/29/2017 REDDY DHZ VI Duran Ot 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 01/29/2017 CESARIO MARTINEZ MD Ot N20.0 CALCULUS OF KIDNEY 02/04/2017 CESARIO MARTINEZ MD Ot E11.9 TYPE 2 DIABETES MELLITUS WITHOUT COMPLIC 02/04/2017 CESARIO MARTINEZ MD, Ot E78.5 HYPERLIPIDEMIA, UNSPECIFIED 02/04/2017 CESARIO MARTINEZ MD, Ot I10 ESSENTIAL (PRIMARY) HYPERTENSION 02/04/2017 CESARIO MARTINEZ MD Ot N20.2 CALCULUS OF KIDNEY WITH CALCULUS OF URET 02/04/2017 CESARIO MARTINEZ MD, Ot N40.0 BENIGN PROSTATIC HYPERPLASIA WITHOUT LOW 02/04/2017 CESARIO MARTINEZ MD, Ot Z79.899 OTHER SKILLED NURSING (CURRENT) DRUG THERAPY 02/04/2017 CESARIO MARTINEZ MD, Ot Z87.891 PERSONAL HISTORY OF NICOTINE DEPENDENCE 02/05/2017 CESARIO MARTINEZ MD, Ot N20.0 CALCULUS OF KIDNEY 03/05/2017 CESARIO MARTINEZ MD, Ot N20.1 CALCULUS OF URETER 03/11/2017 CESARIO MARTINEZ MD, Ot E11.9 TYPE 2 DIABETES MELLITUS WITHOUT COMPLIC 03/11/2017 CESARIO MARTINEZ MD Ot E78.5 HYPERLIPIDEMIA, UNSPECIFIED 03/11/2017 CESARIO MARTINEZ MD Ot I10 ESSENTIAL (PRIMARY) HYPERTENSION 03/11/2017 CESARIO MARTINEZ MD Ot N20.1 CALCULUS OF URETER 03/11/2017 CESARIO MARTINEZ MD Ot N40.0 BENIGN PROSTATIC HYPERPLASIA WITHOUT LOW 03/11/2017 CESARIO MARTINEZ MD Ot Z79.899 OTHER EXTERMINATOR (CURRENT) DRUG THERAPY 03/11/2017 CESARIO MARTINEZ MD, Ot Z87.891 PERSONAL HISTORY OF NICOTINE DEPENDENCE 03/12/2017 CESARIO MARTINEZ MD Ot E11.9 TYPE 2 DIABETES MELLITUS WITHOUT COMPLIC 03/12/2017 CESARIO MARTINEZ MD Ot E78.5 HYPERLIPIDEMIA, UNSPECIFIED 03/12/2017 CESARIO MARTINEZ MD Ot I10 ESSENTIAL (PRIMARY) HYPERTENSION 03/12/2017 CESARIO MARTINEZ MD Ot N20.1 CALCULUS OF URETER 03/12/2017 CESARIO MARTINEZ MD Ot N40.0 BENIGN PROSTATIC HYPERPLASIA WITHOUT LOW 03/12/2017 CESARIO MARTINEZ MD Ot Z79.899 OTHER EXTERMINATOR (CURRENT) DRUG THERAPY 03/12/2017 CESARIO MARTINEZ MD Ot Z87.891 PERSONAL HISTORY OF NICOTINE DEPENDENCE 09/24/2017 CESARIO MARTINEZ MD Ot N20.1 CALCULUS OF URETER 10/06/2017 CESARIO MARTINEZ MD Ot N20.1 CALCULUS OF URETER 10/21/2017 CESARIO MARTINEZ MD Ot N20.1 CALCULUS OF URETER 11/07/2017 Ot 786.2 COUGH 11/07/2017 Ot 786.7 ABNORMAL CHEST SOUNDS 11/07/2017 HILTON SIERRA, DEVEN Sagastume Ot V72.84 EXAM PRE-OPERATIVE NOS 11/07/2017 ZEYAD OWUSU Ot 272.4 HYPERLIPIDEMIA NEC/NOS 11/07/2017 ZEYAD OWUSU Ot 401.9 HYPERTENSION NOS 11/07/2017 ZEYAD OWUSU Ot 416.8 CHR PULMON HEART DIS NEC 11/07/2017 Ot 786.05 SHORTNESS OF BREATH 11/07/2017 Ot 786.2 COUGH 11/07/2017 SYED SIERRA, [place] A Ot M00.861 ARTHRITIS DUE TO OTHER BACTERIA, RIGHT K 11/07/2017 SYED SIERRA, [place] A Ot Z96.651 PRESENCE OF RIGHT ARTIFICIAL KNEE JOINT 11/07/2017 MICHELLE SIERRA, CESARIO Leiva Ot N20.0 CALCULUS OF KIDNEY 11/07/2017 MICHELLE SIERRA, CESARIO Leiva Ot N20.1 CALCULUS OF URETER 11/07/2017 MICHELLE SIERRA, CESARIO Leiva Ot N20.1 CALCULUS OF URETER 11/10/2017 Ot 786.2 COUGH 11/10/2017 Ot 786.7 ABNORMAL CHEST SOUNDS 11/10/2017 HILTON SIERRA, DEVEN Sagastume Ot V72.84 EXAM PRE-OPERATIVE NOS 11/10/2017 ZEYAD OWUSU Ot 272.4 HYPERLIPIDEMIA NEC/NOS 11/10/2017 ZEYAD OWUSU Ot 401.9 HYPERTENSION NOS 11/10/2017 ZEYAD OWUSU K Ot 416.8 CHR PULMON HEART DIS NEC 11/10/2017 Ot 786.05 SHORTNESS OF BREATH 11/10/2017 Ot 786.2 COUGH 11/10/2017 SYED SIERRA, [place] A Ot M00.861 ARTHRITIS DUE TO OTHER BACTERIA, RIGHT K 11/10/2017 SYED SIERRA, [place] A Ot Z96.651 PRESENCE OF RIGHT ARTIFICIAL KNEE JOINT 11/10/2017 MICHELLE SIERRA, CESARIO Leiva Ot N20.0 CALCULUS OF KIDNEY 11/10/2017 MICHELLE SIERRA, CESARIO Leiva Ot N20.1 CALCULUS OF URETER 11/10/2017 MICHELLE SIERRA, CESARIO Leiva Ot N20.1 CALCULUS OF URETER 06/25/2018 ZEYAD OWUSU K Ot 272.4 HYPERLIPIDEMIA NEC/NOS 06/25/2018 HAO LEES, ZEYAD K Ot 401.9 HYPERTENSION NOS 06/25/2018 ZEYAD OWUSU K Ot 416.8 CHR PULMON HEART DIS NEC 06/25/2018 Ot 786.05 SHORTNESS OF BREATH 06/25/2018 Ot 786.2 COUGH 06/25/2018 SYED SIERRA, [place] A Ot M00.861 ARTHRITIS DUE TO OTHER BACTERIA, RIGHT K 06/25/2018 SYED SIERRA, [place] A Ot Z96.651 PRESENCE OF RIGHT ARTIFICIAL KNEE JOINT 06/25/2018 MICHELLE SIERRA, CESARIO Leiva Ot N20.0 CALCULUS OF KIDNEY 06/25/2018 MICHELLE SIERRA, CESARIO Leiva Ot N20.1 CALCULUS OF URETER 06/25/2018 MICHELLE SIERRA, CESARIO Leiva Ot N20.1 CALCULUS OF URETER 07/02/2018 NATA CHU MD Ot I10 ESSENTIAL (PRIMARY) HYPERTENSION 07/02/2018 NATA CHU MD Ot R06.00 DYSPNEA, UNSPECIFIED 07/02/2018 NATA CHU MD Ot R60.0 LOCALIZED EDEMA 07/02/2018 NATA CHU MD Ot I08.1 RHEUMATIC DISORDERS OF BOTH MITRAL AND T 07/02/2018 NATA CHU MD Ot I10 ESSENTIAL (PRIMARY) HYPERTENSION 07/02/2018 NATA CHU MD Ot R06.00 DYSPNEA, UNSPECIFIED 07/02/2018 NATA CHU MD Ot R60.0 LOCALIZED EDEMA 07/16/2018 NATA CHU MD Ot E04.2 NONTOXIC MULTINODULAR GOITER 07/17/2018 NATA CHU MD Ot I08.1 RHEUMATIC DISORDERS OF BOTH MITRAL AND T 07/17/2018 NATA CHU MD Ot I10 ESSENTIAL (PRIMARY) HYPERTENSION 07/17/2018 NATA CHU MD Ot R06.00 DYSPNEA, UNSPECIFIED 07/17/2018 NATA CHU MD Ot R60.0 LOCALIZED EDEMA 07/19/2018 NATA CHU MD Ot E04.2 NONTOXIC MULTINODULAR GOITER 08/04/2018 NATA CHU MD Ot I08.1 RHEUMATIC DISORDERS OF BOTH MITRAL AND T 08/04/2018 NATA CHU MD Ot I10 ESSENTIAL (PRIMARY) HYPERTENSION 08/04/2018 NATA CHU MD Ot R06.00 DYSPNEA, UNSPECIFIED 08/04/2018 NATA CHU MD Ot R60.0 LOCALIZED EDEMA 08/07/2018 REDDY DO VI Renee Ot E78.00 PURE HYPERCHOLESTEROLEMIA, UNSPECIFIED 08/07/2018 REDDY DO VI K Ot I10 ESSENTIAL (PRIMARY) HYPERTENSION 08/07/2018 REDDY DO VI K Ot 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 08/07/2018 REDDY PAGE HDZA K Ot R10.32 LEFT LOWER QUADRANT PAIN 08/07/2018 REDDY PAGE HDZA K Ot Z80.0 FAMILY HISTORY OF MALIGNANT NEOPLASM OF 08/07/2018 REDDY PAGE HDZA K Ot Z82.49 FAMILY HX OF ISCHEM HEART DIS AND OTH DI 08/07/2018 REDDY PAGE HDZA K Ot Z86.010 PERSONAL HISTORY OF COLONIC POLYPS 08/07/2018 REDDY PAGE HDZA K Ot Z87.19 PERSONAL HISTORY OF OTHER DISEASES OF TH 08/07/2018 REDDY PAGE HDZA K Ot Z87.442 PERSONAL HISTORY OF URINARY CALCULI 08/07/2018 REDDY VI K Ot Z87.891 PERSONAL HISTORY OF NICOTINE DEPENDENCE 08/07/2018 REDDY DOPAGEA K Ot Z90.49 ACQUIRED ABSENCE OF OTHER SPECIFIED PART 08/07/2018 REDDY DO VI K Ot Z98.890 OTHER SPECIFIED POSTPROCEDURAL STATES 08/10/2018 REDDY PAGE HDZA K Ot E78.00 PURE HYPERCHOLESTEROLEMIA, UNSPECIFIED 08/10/2018 REDDY , VI K Ot I10 ESSENTIAL (PRIMARY) HYPERTENSION 08/10/2018 REDDY DO VI K Ot 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 08/10/2018 VI BLAKELY DO Ot R10.32 LEFT LOWER QUADRANT PAIN 08/10/2018 REDDY PAGE HDZA K Ot Z80.0 FAMILY HISTORY OF MALIGNANT NEOPLASM OF 08/10/2018 REDDY PAGE HDZA K Ot Z82.49 FAMILY HX OF ISCHEM HEART DIS AND OTH DI 08/10/2018 REDDY HDZ VI K Ot Z86.010 PERSONAL HISTORY OF COLONIC POLYPS 08/10/2018 REDDY PAGE HDZA K Ot Z87.19 PERSONAL HISTORY OF OTHER DISEASES OF TH 08/10/2018 REDDY PAGE HDZA K Ot Z87.442 PERSONAL HISTORY OF URINARY CALCULI 08/10/2018 REDDY VI K Ot Z87.891 PERSONAL HISTORY OF NICOTINE DEPENDENCE 08/10/2018 REDDY VI K Ot Z90.49 ACQUIRED ABSENCE OF OTHER SPECIFIED PART 08/10/2018 REDDY DO, VI K Ot Z98.890 OTHER SPECIFIED POSTPROCEDURAL STATES 08/10/2018 NATA CHU MD Ot E04.2 NONTOXIC MULTINODULAR GOITER 08/11/2018 CESARIO MARTINEZ MD, Ot N20.1 CALCULUS OF URETER 08/17/2018 NATA CHU MD Ot E04.2 NONTOXIC MULTINODULAR GOITER 08/21/2018 CESARIO MARTINEZ MD, Ot N20.2 CALCULUS OF KIDNEY WITH CALCULUS OF URET 08/21/2018 CESARIO MARTINEZ MD, Ot N20.2 CALCULUS OF KIDNEY WITH CALCULUS OF URET Procedures Code Description Performed By Performed On 58.6 URETHRAL DILATION 10/19/2010 [id number] REPLACE OF R KNEE JT WITH SYNTH SUB, CARROL 11/22/2015 Results Test Result Range PT panel in platelet poor plasma by coagulation assay - 03/23/16 18:54 Prothrombin time (PT) in platelet poor plasma by coagulation assay 13.2 s 12.2-14.7 INR in platelet poor plasma or blood by coagulation assay 1.0 0.8-1.4 Activated partial thromboplastin time (aPTT) in platelet poor plasma bycoagulation assay - 03/23/16 18:54 Activated partial thromboplastin time (aPTT) in platelet poor plasma bycoagulation assay 38 s 24-35 Complete blood count (CBC) with automated white blood cell (WBC) differential - 03/23/16 18:54 Blood leukocytes automated count (number/volume) 15.2 10*3/uL 4.3-11.0 Blood erythrocytes automated count (number/volume) 4.90 10*6/uL 4.35-5.85 Venous blood hemoglobin measurement (mass/volume) 14.8 g/dL 13.3-17.7 Blood hematocrit (volume fraction) 44 % 40-54 Automated erythrocyte mean corpuscular volume 89 [foz_us] 80-99 Automated erythrocyte mean corpuscular hemoglobin (mass per erythrocyte) 30 pg 25-34 Automated erythrocyte mean corpuscular hemoglobin concentration measurement ( mass/volume) 34 g/dL 32-36 Automated erythrocyte distribution width ratio 12.8 % 10.0-14.5 Automated blood platelet count (count/volume) 213 10*3/uL 130-400 Automated blood platelet mean volume measurement 11.0 [foz_us] 7.4-10.4 Automated blood neutrophils/100 leukocytes 88 % 42-75 Automated blood lymphocytes/100 leukocytes 5 % 12-44 Blood monocytes/100 leukocytes 7 % 0-12 Automated blood eosinophils/100 leukocytes 0 % 0-10 Automated blood basophils/100 leukocytes 0 % 0-10 Blood neutrophils automated count (number/volume) 13.4 10*3 1.8-7.8 Blood lymphocytes automated count (number/volume) 0.7 10*3 1.0-4.0 Blood monocytes automated count (number/volume) 1.1 10*3 0.0-1.0 Automated eosinophil count 0.0 10*3/uL 0.0-0.3 Automated blood basophil count (count/volume) 0.1 10*3/uL 0.0-0.1 Blood lactic acid measurement (moles/volume) - 03/23/16 18:54 Blood lactic acid measurement (moles/volume) 2.1 mmol/L 0.5-2.0 Blood manual differential performed detection - 03/23/16 18:54 Blood monocytes/100 leukocytes 3 % NRG Manual blood segmented neutrophils/100 leukocytes 89 % NRG Blood band neutrophils/100 leukocytes 3 % NRG Manual blood lymphocytes/100 leukocytes 5 % NRG Blood erythrocyte morphology finding identification NORMAL NR Comprehensive metabolic panel - 03/23/16 18:54 Serum or plasma sodium measurement (moles/volume) 134 mmol/L 135-145 Serum or plasma potassium measurement (moles/volume) 3.3 mmol/L 3.6-5.0 Serum or plasma chloride measurement (moles/volume) 95 mmol/L 98-107 Carbon dioxide 25 mmol/L 21-32 Serum or plasma anion gap determination (moles/volume) 14 mmol/L 5-14 Serum or plasma urea nitrogen measurement (mass/volume) 18 mg/dL 7-18 Serum or plasma creatinine measurement (mass/volume) 0.95 mg/dL 0.60-1.30 Serum or plasma urea nitrogen/creatinine mass ratio 19 NRG Serum or plasma creatinine measurement with calculation of estimated glomerular filtration rate > NRG Serum or plasma glucose measurement (mass/volume) 111 mg/dL 70-105 Serum or plasma calcium measurement (mass/volume) 10.3 mg/dL 8.5-10.1 Serum or plasma total bilirubin measurement (mass/volume) 1.7 mg/dL 0.1-1.0 Serum or plasma alkaline phosphatase measurement (enzymatic activity/volume) 86 U/L 40-136 Serum or plasma aspartate aminotransferase measurement (enzymatic activity/ volume) 17 U/L 5-34 Serum or plasma alanine aminotransferase measurement (enzymatic activity/volume ) 13 U/L 0-55 Serum or plasma protein measurement (mass/volume) 7.3 g/dL 6.4-8.2 Serum or plasma albumin measurement (mass/volume) 3.7 g/dL 3.2-4.5 Serum or plasma uric acid measurement (mass/volume) - 03/23/16 18:54 Serum or plasma uric acid measurement (mass/volume) 5.2 mg/dL 2.6-7.2 Serum or plasma C reactive protein measurement (mass/volume) - 03/23/16 18:54 Serum or plasma C reactive protein measurement (mass/volume) > mg/ dL 0.00-0.50 Serum or plasma uric acid measurement (mass/volume) - 03/23/16 18:54 Serum or plasma uric acid measurement (mass/volume) 5.0 mg/dL 2.6-7.2 Bacterial blood culture - 03/23/16 18:54 Bacterial blood culture NG NRG Bacterial blood culture - 03/23/16 19:08 Bacterial blood culture NG NRG Complete urinalysis with reflex to culture - 03/23/16 19:56 Urine color determination ALEJANDRO NRG Urine clarity determination SLIGHTLY CLOUDY NRG Urine pH measurement by test strip 6 5-9 Specific gravity of urine by test strip 1.015 1.016- 1.022 Urine protein assay by test strip, semi-quantitative 3+ NEGATIVE Urine glucose detection by automated test strip NEGATIVE NEGATIVE Erythrocytes detection in urine sediment by light microscopy 2+ NEGATIVE Urine ketones detection by automated test strip 3+ NEGATIVE Urine nitrite detection by test strip NEGATIVE NEGATIVE Urine total bilirubin detection by test strip NEGATIVE NEGATIVE Urine urobilinogen measurement by automated test strip (mass/volume) 1 mg/dL NORMAL Urine leukocyte esterase detection by dipstick 1+ NEGATIVE Automated urine sediment erythrocyte count by microscopy (number/high power field) NONE NRG Automated urine sediment leukocyte count by microscopy (number/high power field ) [HPF] NRG Bacteria detection in urine sediment by light microscopy NEGATIVE NRG Squamous epithelial cells detection in urine sediment by light microscopy 0-2 NRG Crystals detection in urine sediment by light microscopy NONE NRG Casts detection in urine sediment by light microscopy NONE NRG Mucus detection in urine sediment by light microscopy SMALL NRG Complete urinalysis with reflex to culture NO NRG Serum or plasma lactate measurement (moles/volume) - 03/23/16 20:45 Serum or plasma lactate measurement (moles/volume) 1.3 mmol/L 0.5-2.0 Body fluid cell count - 03/23/16 21:19 Specimen source identification of body fluid SYNOVIAL NRG Evaluation of color of body fluid ALEJANDRO NRG Determination of appearance of body fluid MKD CLDY NRG Body fluid leukocytes count (number/volume) 26010 /uL NRG Body fluid erythrocytes count (number/volume) 15365 /uL NRG Manual body fluid polymorphonuclear cells/100 leukocytes 87 % NRG Manual body fluid mononuclear cells/100 leukocytes 0 % NRG Manual body fluid lymphocytes/100 leukocytes 0 % NRG Other cells/100 leukocytes in body fluid by manual count 13 % NRG * Body fluid crystals type by light microscopy - 03/23/16 21:19 * Body fluid crystals type by light microscopy NOT SEEN NRG Gram stain microscopy - 03/23/16 21:19 GRAM STAIN RESULT NUMEROUS WBC'S, NO BACTERIA OBSERVED NRG Bacterial body fluid culture - 03/23/16 21:19 FREE TEXT EXTERNAL REPORTED TO DR STRANGE AT [facility] QUANTITY OF GROWTH [employer] [facility] FREE TEXT ENTRY 2 03/24/16 15:30 BY Dru NICKERSON [facility] Bacterial body fluid culture [id number] [facility] Complete blood count (CBC) with automated white blood cell (WBC) differential - 04/05/16 04:34 Blood leukocytes automated count (number/volume) 9.0 10*3/uL 4.3-11.0 Blood erythrocytes automated count (number/volume) 3.08 10*6/uL 4.35-5.85 Venous blood hemoglobin measurement (mass/volume) 9.3 g/dL 13.3-17.7 Blood hematocrit (volume fraction) 28 % 40-54 Automated erythrocyte mean corpuscular volume 92 [foz_us] 80-99 Automated erythrocyte mean corpuscular hemoglobin (mass per erythrocyte) 30 pg 25-34 Automated erythrocyte mean corpuscular hemoglobin concentration measurement ( mass/volume) 33 g/dL 32-36 Automated erythrocyte distribution width ratio 12.8 % 10.0-14.5 Automated blood platelet count (count/volume) 612 10*3/uL 130-400 Automated blood platelet mean volume measurement 9.3 [foz_us] 7.4-10.4 Automated blood neutrophils/100 leukocytes 69 % 42-75 Automated blood lymphocytes/100 leukocytes 15 % 12-44 Blood monocytes/100 leukocytes 10 % 0-12 Automated blood eosinophils/100 leukocytes 4 % 0-10 Automated blood basophils/100 leukocytes 1 % 0-10 Blood neutrophils automated count (number/volume) 6.2 10*3 1.8-7.8 Blood lymphocytes automated count (number/volume) 1.4 10*3 1.0-4.0 Blood monocytes automated count (number/volume) 0.9 10*3 0.0-1.0 Automated eosinophil count 0.4 10*3/uL 0.0-0.3 Automated blood basophil count (count/volume) 0.1 10*3/uL 0.0-0.1 Comprehensive metabolic panel - 04/05/16 04:34 Serum or plasma sodium measurement (moles/volume) 135 mmol/L 135-145 Serum or plasma potassium measurement (moles/volume) 3.9 mmol/L 3.6-5.0 Serum or plasma chloride measurement (moles/volume) 99 mmol/L 98-107 Carbon dioxide 30 mmol/L 21-32 Serum or plasma anion gap determination (moles/volume) 6 mmol/L 5-14 Serum or plasma urea nitrogen measurement (mass/volume) 11 mg/dL 7-18 Serum or plasma creatinine measurement (mass/volume) 0.71 mg/dL 0.60-1.30 Serum or plasma urea nitrogen/creatinine mass ratio 15 NRG Serum or plasma creatinine measurement with calculation of estimated glomerular filtration rate > NRG Serum or plasma glucose measurement (mass/volume) 112 mg/dL 70-105 Serum or plasma calcium measurement (mass/volume) 9.0 mg/dL 8.5-10.1 Serum or plasma total bilirubin measurement (mass/volume) 0.5 mg/dL 0.1-1.0 Serum or plasma alkaline phosphatase measurement (enzymatic activity/volume) 97 U/L 40-136 Serum or plasma aspartate aminotransferase measurement (enzymatic activity/ volume) 14 U/L 5-34 Serum or plasma alanine aminotransferase measurement (enzymatic activity/volume ) 7 U/L 0-55 Serum or plasma protein measurement (mass/volume) 6.5 g/dL 6.4-8.2 Serum or plasma albumin measurement (mass/volume) 2.7 g/dL 3.2-4.5 Complete blood count (CBC) with automated white blood cell (WBC) differential - 04/15/16 09:20 Blood leukocytes automated count (number/volume) 10.5 10*3/uL 4.3-11.0 Blood erythrocytes automated count (number/volume) 3.74 10*6/uL 4.35-5.85 Venous blood hemoglobin measurement (mass/volume) 11.1 g/dL 13.3-17.7 Blood hematocrit (volume fraction) 35 % 40-54 Automated erythrocyte mean corpuscular volume 93 [foz_us] 80-99 Automated erythrocyte mean corpuscular hemoglobin (mass per erythrocyte) 30 pg 25-34 Automated erythrocyte mean corpuscular hemoglobin concentration measurement ( mass/volume) 32 g/dL 32-36 Automated erythrocyte distribution width ratio 13.7 % 10.0-14.5 Automated blood platelet count (count/volume) 418 10*3/uL 130-400 Automated blood platelet mean volume measurement 10.7 [foz_us] 7.4-10.4 Automated blood neutrophils/100 leukocytes 73 % 42-75 Automated blood lymphocytes/100 leukocytes 10 % 12-44 Blood monocytes/100 leukocytes 9 % 0-12 Automated blood eosinophils/100 leukocytes 6 % 0-10 Automated blood basophils/100 leukocytes 1 % 0-10 Blood neutrophils automated count (number/volume) 7.7 10*3 1.8-7.8 Blood lymphocytes automated count (number/volume) 1.1 10*3 1.0-4.0 Blood monocytes automated count (number/volume) 1.0 10*3 0.0-1.0 Automated eosinophil count 0.7 10*3/uL 0.0-0.3 Automated blood basophil count (count/volume) 0.1 10*3/uL 0.0-0.1 Whole blood basic metabolic panel - 04/15/16 09:20 Serum or plasma sodium measurement (moles/volume) 135 mmol/L 135-145 Serum or plasma potassium measurement (moles/volume) 3.9 mmol/L 3.6-5.0 Serum or plasma chloride measurement (moles/volume) 99 mmol/L 98-107 Carbon dioxide 27 mmol/L 21-32 Serum or plasma anion gap determination (moles/volume) 9 mmol/L 5-14 Serum or plasma urea nitrogen measurement (mass/volume) 17 mg/dL 7-18 Serum or plasma creatinine measurement (mass/volume) 0.82 mg/dL 0.60-1.30 Serum or plasma urea nitrogen/creatinine mass ratio 21 NRG Serum or plasma creatinine measurement with calculation of estimated glomerular filtration rate > NRG Serum or plasma glucose measurement (mass/volume) 108 mg/dL 70-105 Serum or plasma calcium measurement (mass/volume) 10.1 mg/dL 8.5-10.1 Serum or plasma C reactive protein measurement (mass/volume) - 04/15/16 09:20 Serum or plasma C reactive protein measurement (mass/volume) 11.90 mg/dL 0.00-0.50 Erythrocyte sedimentation rate by westergren method - 04/15/16 09:20 Erythrocyte sedimentation rate by westergren method > mm 0-30 Complete blood count (CBC) with automated white blood cell (WBC) differential - 01/22/17 03:35 Blood leukocytes automated count (number/volume) 9.5 10*3/uL 4.3-11.0 Blood erythrocytes automated count (number/volume) 4.97 10*6/uL 4.35-5.85 Venous blood hemoglobin measurement (mass/volume) 15.2 g/dL 13.3-17.7 Blood hematocrit (volume fraction) 45 % 40-54 Automated erythrocyte mean corpuscular volume 91 [foz_us] 80-99 Automated erythrocyte mean corpuscular hemoglobin (mass per erythrocyte) 31 pg 25-34 Automated erythrocyte mean corpuscular hemoglobin concentration measurement ( mass/volume) 34 g/dL 32-36 Automated erythrocyte distribution width ratio 12.5 % 10.0-14.5 Automated blood platelet count (count/volume) 267 10*3/uL 130-400 Automated blood platelet mean volume measurement 10.8 [foz_us] 7.4-10.4 Automated blood neutrophils/100 leukocytes 63 % 42-75 Automated blood lymphocytes/100 leukocytes 21 % 12-44 Blood monocytes/100 leukocytes 9 % 0-12 Automated blood eosinophils/100 leukocytes 5 % 0-10 Automated blood basophils/100 leukocytes 2 % 0-10 Blood neutrophils automated count (number/volume) 6.0 10*3 1.8-7.8 Blood lymphocytes automated count (number/volume) 2.0 10*3 1.0-4.0 Blood monocytes automated count (number/volume) 0.9 10*3 0.0-1.0 Automated eosinophil count 0.5 10*3/uL 0.0-0.3 Automated blood basophil count (count/volume) 0.2 10*3/uL 0.0-0.1 Comprehensive metabolic panel - 01/22/17 03:35 Serum or plasma sodium measurement (moles/volume) 143 mmol/L 135-145 Serum or plasma potassium measurement (moles/volume) 3.4 mmol/L 3.6-5.0 Serum or plasma chloride measurement (moles/volume) 104 mmol/L 98-107 Carbon dioxide 26 mmol/L 21-32 Serum or plasma anion gap determination (moles/volume) 13 mmol/L 5-14 Serum or plasma urea nitrogen measurement (mass/volume) 16 mg/dL 7-18 Serum or plasma creatinine measurement (mass/volume) 1.26 mg/dL 0.60-1.30 Serum or plasma urea nitrogen/creatinine mass ratio 13 NRG Serum or plasma creatinine measurement with calculation of estimated glomerular filtration rate 55 NRG Serum or plasma glucose measurement (mass/volume) 141 mg/dL 70-105 Serum or plasma calcium measurement (mass/volume) 9.9 mg/dL 8.5-10.1 Serum or plasma total bilirubin measurement (mass/volume) 0.5 mg/dL 0.1-1.0 Serum or plasma alkaline phosphatase measurement (enzymatic activity/volume) 116 U/L 40-136 Serum or plasma aspartate aminotransferase measurement (enzymatic activity/ volume) 19 U/L 5-34 Serum or plasma alanine aminotransferase measurement (enzymatic activity/volume ) 27 U/L 0-55 Serum or plasma protein measurement (mass/volume) 7.3 g/dL 6.4-8.2 Serum or plasma albumin measurement (mass/volume) 4.1 g/dL 3.2-4.5 Serum or plasma amylase measurement (enzymatic activity/volume) - 01/22/17 03: 35 Serum or plasma amylase measurement (enzymatic activity/volume) 62 U /L 25-125 Lipase - 01/22/17 03:35 Lipase 34 U/L 8-78 Complete urinalysis with reflex to culture - 01/22/17 04:07 Urine color determination YELLOW NRG Urine clarity determination SLIGHTLY CLOUDY NRG Urine pH measurement by test strip 7 5-9 Specific gravity of urine by test strip 1.010 1.016- 1.022 Urine protein assay by test strip, semi-quantitative 1+ NEGATIVE Urine glucose detection by automated test strip NEGATIVE NEGATIVE Erythrocytes detection in urine sediment by light microscopy 3+ NEGATIVE Urine ketones detection by automated test strip NEGATIVE NEGATIVE Urine nitrite detection by test strip NEGATIVE NEGATIVE Urine total bilirubin detection by test strip NEGATIVE NEGATIVE Urine urobilinogen measurement by automated test strip (mass/volume) NORMAL NORMAL Urine leukocyte esterase detection by dipstick NEGATIVE NEGATIVE Automated urine sediment erythrocyte count by microscopy (number/high power field) [HPF] NRG Automated urine sediment leukocyte count by microscopy (number/high power field ) NONE NRG Bacteria detection in urine sediment by light microscopy TRACE NRG Squamous epithelial cells detection in urine sediment by light microscopy 0-2 NRG Crystals detection in urine sediment by light microscopy PRESENT NRG Casts detection in urine sediment by light microscopy NONE NRG Mucus detection in urine sediment by light microscopy NEGATIVE NRG Complete urinalysis with reflex to culture NO NRG Amorphous sediment detection in urine sediment by light microscopy MOD TRISHA PHOSPHATE NRG Methicillin resistant Staphylococcus aureus (MRSA) screening culture - 07:25 Methicillin resistant Staphylococcus aureus (MRSA) screening culture NEG NRG Methicillin resistant Staphylococcus aureus (MRSA) screening culture - 08:50 Methicillin resistant Staphylococcus aureus (MRSA) screening culture NEG NRG Complete urinalysis with reflex to culture - 08/07/18 17:50 Urine color determination YELLOW NRG Urine clarity determination CLEAR NRG Urine pH measurement by test strip 7 5-9 Specific gravity of urine by test strip 1.005 1.016- 1.022 Urine protein assay by test strip, semi-quantitative NEGATIVE NEGATIVE Urine glucose detection by automated test strip NEGATIVE NEGATIVE Erythrocytes detection in urine sediment by light microscopy 5+ NEGATIVE Urine ketones detection by automated test strip NEGATIVE NEGATIVE Urine nitrite detection by test strip NEGATIVE NEGATIVE Urine total bilirubin detection by test strip NEGATIVE NEGATIVE Urine urobilinogen measurement by automated test strip (mass/volume) NORMAL NORMAL Urine leukocyte esterase detection by dipstick NEGATIVE NEGATIVE Automated urine sediment erythrocyte count by microscopy (number/high power field) [HPF] NRG Automated urine sediment leukocyte count by microscopy (number/high power field ) RARE NRG Bacteria detection in urine sediment by light microscopy NEGATIVE NRG Squamous epithelial cells detection in urine sediment by light microscopy 2-5 NRG Crystals detection in urine sediment by light microscopy NONE NRG Casts detection in urine sediment by light microscopy NONE NRG Mucus detection in urine sediment by light microscopy NEGATIVE NRG Complete urinalysis with reflex to culture NO NRG Complete blood count (CBC) with automated white blood cell (WBC) differential - 08/07/18 17:57 Blood leukocytes automated count (number/volume) 11.1 10*3/uL 4.3-11.0 Blood erythrocytes automated count (number/volume) 4.69 10*6/uL 4.35-5.85 Venous blood hemoglobin measurement (mass/volume) 14.7 g/dL 13.3-17.7 Blood hematocrit (volume fraction) 44 % 40-54 Automated erythrocyte mean corpuscular volume 93 [foz_us] 80-99 Automated erythrocyte mean corpuscular hemoglobin (mass per erythrocyte) 31 pg 25-34 Automated erythrocyte mean corpuscular hemoglobin concentration measurement ( mass/volume) 34 g/dL 32-36 Automated erythrocyte distribution width ratio 13.1 % 10.0-14.5 Automated blood platelet count (count/volume) 291 10*3/uL 130-400 Automated blood platelet mean volume measurement 10.6 [foz_us] 7.4-10.4 Automated blood neutrophils/100 leukocytes 70 % 42-75 Automated blood lymphocytes/100 leukocytes 14 % 12-44 Blood monocytes/100 leukocytes 10 % 0-12 Automated blood eosinophils/100 leukocytes 5 % 0-10 Automated blood basophils/100 leukocytes 1 % 0-10 Blood neutrophils automated count (number/volume) 7.7 10*3 1.8-7.8 Blood lymphocytes automated count (number/volume) 1.6 10*3 1.0-4.0 Blood monocytes automated count (number/volume) 1.2 10*3 0.0-1.0 Automated eosinophil count 0.6 10*3/uL 0.0-0.3 Automated blood basophil count (count/volume) 0.1 10*3/uL 0.0-0.1 Comprehensive metabolic panel - 08/07/18 17:57 Serum or plasma sodium measurement (moles/volume) 141 mmol/L 135-145 Serum or plasma potassium measurement (moles/volume) 3.8 mmol/L 3.6-5.0 Serum or plasma chloride measurement (moles/volume) 105 mmol/L 98-107 Carbon dioxide 26 mmol/L 21-32 Serum or plasma anion gap determination (moles/volume) 10 mmol/L 5-14 Serum or plasma urea nitrogen measurement (mass/volume) 17 mg/dL 7-18 Serum or plasma creatinine measurement (mass/volume) 1.16 mg/dL 0.60-1.30 Serum or plasma urea nitrogen/creatinine mass ratio 15 NRG Serum or plasma creatinine measurement with calculation of estimated glomerular filtration rate > NRG Serum or plasma glucose measurement (mass/volume) 129 mg/dL 70-105 Serum or plasma calcium measurement (mass/volume) 10.0 mg/dL 8.5-10.1 Serum or plasma total bilirubin measurement (mass/volume) 0.6 mg/dL 0.1-1.0 Serum or plasma alkaline phosphatase measurement (enzymatic activity/volume) 113 U/L 40-136 Serum or plasma aspartate aminotransferase measurement (enzymatic activity/ volume) 20 U/L 5-34 Serum or plasma alanine aminotransferase measurement (enzymatic activity/volume ) 20 U/L 0-55 Serum or plasma protein measurement (mass/volume) 7.5 g/dL 6.4-8.2 Serum or plasma albumin measurement (mass/volume) 4.3 g/dL 3.2-4.5 CALCIUM CORRECTED 9.8 mg/dL 8.5-10.1 Serum or plasma amylase measurement (enzymatic activity/volume) - 08/07/18 17: 57 Serum or plasma amylase measurement (enzymatic activity/volume) 62 U /L 25-125 Lipase - 08/07/18 17:57 Lipase 35 U/L 8-78 Encounters ACCT No. Visit Date/Time Discharge Status Pt. Type Provider Facility Loc./Unit Complaint [id number] 08/20/2018 09:46:00 08/20/2018 23:59:59 CLS Outpatient CESARIO MARTINEZ MD [facility] RAD LT URETERAL STONE [id number] 08/10/2018 14:15:00 08/10/2018 23:59:59 CLS Outpatient CESARIO MARTINEZ MD [facility] RAD L URETERAL STONE [id number] 08/07/2018 17:39:00 08/07/2018 23:59:59 CLS Emergency VI BLAKELY DO [facility] ER L SIDE PAIN [id number] 07/09/2018 08:53:00 07/09/2018 23:59:59 CLS Outpatient NATA CHU MD [facility] RAD THYROID NODULE [id number] 07/01/2018 09:27:00 07/01/2018 23:59:59 CLS Outpatient NATA CHU MD [facility] CARD CAROTID ARTERY STENOSIS [id number] 09/23/2017 16:31:00 09/23/2017 23:59:59 CLS Outpatient CESARIO MARTINEZ MD [facility] RAD URETERAL STONE [id number] 03/11/2017 07:14:00 03/11/2017 12:20:00 DIS Outpatient CESARIO MARTINEZ MD [facility] LEFT URETERAL STONE [id number] 02/19/2017 10:12:00 02/19/2017 23:59:59 CLS Outpatient CESARIO MARTINEZ MD [facility] RAD URETERAL STONE [id number] 02/04/2017 06:52:00 02/04/2017 11:38:00 DIS Outpatient CESARIO MARTINEZ MD [facility] LEFT URETERAL STONE [id number] 01/28/2017 05:30:00 01/28/2017 12:23:00 DIS Outpatient CESARIO MARTINEZ MD [facility] PREOP LT URETEROSCOPY W/ LITHOCLAST,POSS.MERVAT,SAAD, [id number] 01/27/2017 12:46:00 01/27/2017 23:59:59 CLS Outpatient CESARIO MRATINEZ MD [facility] RAD LEFT URETER STONE [id number] 01/22/2017 03:18:00 01/22/2017 05:00:00 DIS Emergency REDDY VI HDZ [facility] ER SEVERE ABD PAIN [id number] 07/10/2016 12:54:00 07/10/2016 15:04:00 DIS Outpatient KARISHMA EARLY-[place] [facility] REHAB R TKA I D S/P [id number] 04/15/2016 10:27:00 04/15/2016 23:59:59 CLS Outpatient VIRGINIA LYNCH MD [facility] HH SEPTIC ARTHRITIS [id number] 04/04/2016 16:33:00 04/12/2016 14:15:00 DIS Inpatient SMITH SIERRA, KEN Alvarenga [facility] IRF SEPTIC ARTHRITIS RT KNEE [id number] 03/23/2016 17:28:00 03/23/2016 22:24:00 DIS Emergency NIKKO SIERRA, VERONICA Sagastume [facility] ER R KNEE SWELLING, CHILLS, HOT FLASHES [id number] 02/08/2016 14:00:00 02/08/2016 17:00:00 DIS Outpatient LAURA ZHU MD [facility] REHAB R TKA [id number] 02/02/2016 10:00:00 02/02/2016 17:00:00 DIS Outpatient LAURA ZHU MD [facility] REHAB R TKA [id number] 11/22/2015 05:54:00 11/25/2015 18:25:00 DIS Inpatient LAURA ZHU MD [facility] 4TH OSTEOARTHRITIS [id number] 11/08/2015 09:04:00 11/08/2015 10:00:00 DIS Outpatient LAURA ZHU MD [facility] PREOP OSTEOARTHRITIS [id number] 12/23/2013 13:49:00 12/23/2013 23:59:59 CLS Outpatient ZEYAD OWUSU [facility] CARD ENRIQUE,HTN,HLP [id number] 09/18/2012 07:34:00 09/18/2012 11:15:00 DIS Outpatient DEVEN CANELA MD [facility] SDC HX COLON POLYPS [id number] 09/17/2012 07:47:00 09/17/2012 23:59:59 CLS Outpatient DEVEN CANELA MD [facility] PREOP HX COLON POLYPS [id number] 10/18/2014 09:05:00 Document Registration [id number] 10/18/2014 09:05:00 Document Registration [id number] 10/18/2014 09:05:00 Document Registration [id number] 06/21/2014 10:44:00 Document Registration [id number] 06/15/2012 15:44:00 Document Registration [id number] 02/19/2012 11:22:00 Document Registration [id number] 10/15/2010 11:22:00 Document Registration [id number] 11/15/2009 15:23:00 Document Registration [id number] 03/20/2017 09:45:38 03/20/2017 23:59:59 [facility] Outpatient
[2018-08-26] MEDS ORDERED: ONDANSETRON 4 MG/2 ML (SDV) Z0FRAN ONE (06:55)
[2018-08-26] MEDS ORDERED: proPOfol 200 MG/20 ML (DIPRIVAN) VIAL IV ONE (06:55)
[2018-08-26] MEDS ORDERED: fentaNYL INJECTION 100 MCG/2 ML AMP ONE (06:55)
[2018-08-26] MEDS ORDERED: LIDOCAINE PF 2% 5 ML (XYLOCAINE) VIAL ONE (06:55)
[2018-08-26] MEDS ORDERED: SEVOFLURANE (ULTANE) 15 ML INHAL SOLN ONE ×3 (06:55→08:24)
[2018-08-26] MEDS ORDERED: CATHETER FLUSH 10 ML SYR IV PRN (07:00)
--- NOTE | 2018-08-26 07:06 | Progress Note-Pre Operative ---
Pre-Operative Progress Note H&P Reviewed The H&P was reviewed, patient examined and no changes noted. Date Seen by Provider: Aug 26, 2018 Time Seen by Provider: 07:05 Date H&P Reviewed: Aug 26, 2018 Time H&P Reviewed: 07:05 Pre-Operative Diagnosis: LT URETERAL STONE CESARIO MARTINEZ MD Aug 26, 2018 07:06
[2018-08-26] MEDS ORDERED: IOPAMIDOL 61% 30 ML (ISOVUE 300) VIAL IV ONE (07:30)
--- NOTE | 2018-08-26 08:15 | Progress Note-Post Operative ---
Post-Operative Progess Note Surgeon (s)/[place] Fisherman (s) Surgeon CESARIO MARTINEZ MD [place]: NONE Pre-Operative Diagnosis LT URETERAL STONE Post-Operative Diagnosis SAME Procedure & Operative Findings Date of Procedure 08/26/18 Procedure Performed/Findings CYSTOSCOPY, LT RETROGRADE UROGRAM, ATTEMPTED URETEROSCOPY, AND LT ESWL Anesthesia Type GENERAL Estimated Blood Loss Estimated blood loss (mL): NONE Specimens/Packing Specimens Removed NONE Packing: NONE CESARIO MARTINEZ MD Aug 26, 2018 08:15
--- NOTE | 2018-08-26 08:17 | Discharge Inst-Urology ---
Discharge Inst-Urology Discharge Medications New, Converted, or Re-newed RX: RX on Chart Patient Instructions/Follow Up Plan Please make appointment to been seen in office in 4 weeks. KUB prior to it KUB on way home Post ESWL instructions Hold ASA, may resume in a week if no bleeding Increase oral fluids for 48 hours and then as needed. Diet and Activity as tolerated. If questions or concerns contact your physician Or seek help at emergency department. CESARIO MARTINEZ MD Aug 26, 2018 08:17
[2018-08-26] MEDS ORDERED: KETOROLAC 30 MG/ML VIAL ONE (08:20)
[2018-08-26] MEDS ORDERED: FUROSEMIDE 40 MG/4 ML INJ (LASIX) ONE (08:20)
--- NOTE | 2018-08-26 08:28 | Diagnostic Imaging Report ---
INDICATION: Nephrolithiasis Comparison is made with prior examination from 08/20/2018. FINDINGS: The bowel gas pattern is nonspecific. There appears to be a persistent stone in the superior aspect of the right kidney. There is some calcified phleboliths in the pelvis. IMPRESSION: Persistent right nephrolithiasis. Dictated by: Dictated on workstation # [id number]
--- NOTE | 2018-08-26 08:39 | OPERATIVE REPORT ---
DATE OF SERVICE: 08/26/2018 PREOPERATIVE DIAGNOSIS: Left distal ureteral stone. POSTOPERATIVE DIAGNOSIS: Left distal ureteral stone. OPERATION PERFORMED: Cystoscopy with left retrograde urogram, attempted ureteroscopy and left ESWL. SURGEON: Yury Martinez MD. ANESTHESIA: General. COMPLICATIONS: None. DESCRIPTION OF PROCEDURE: Under satisfactory general anesthesia, the patient in lithotomy position on the cystoscopy table, genitalia were prepped and draped in the usual sterile fashion. Cystoscope was introduced under vision. The anterior urethra was normal. The prostate showed some enlargement with a median bar that produced upward and lateral displacement of the ureter. His left ureteral orifice was kind of small, was unable to dilate it, but I was able to inject contrast, which showed me the position of the stone and differentiated from the phlebolith, so we moved the patient to the ESWL table. We localized the stone and delivered shocks at a kV of 6. After 2000 shocks, we were unable to see the stone anymore. The patient received 40 mg of Lasix and 30 mg of Toradol IV at the end of the procedure. He tolerated the procedure and anesthesia well and was sent to the recovery room in stable condition. Job ID: [id number] DocumentID: [id number] Dictated Date: 08/26/2018 08:22:12 Machine Bender Date: 08/26/2018 08:39:04 Dictated By: YURY MARTINEZ MD
[2018-08-26] MEDS ORDERED: ONDANSETRON 4 MG/2 ML (SDV) Z0FRAN IVP PRN (08:45)
[2018-08-26] MEDS ORDERED: HYDROmorphone 2 MG/ML VIAL (DILAUDID) IV ONE (08:45)
[2018-08-26] MEDS ORDERED: CIPR-225 PO (08:47)
[2018-08-26] MEDS ORDERED: HYDR-3870 PO (08:47)
--- NOTE | 2018-08-26 12:37 | Diagnostic Imaging Report ---
INDICATION: Nephrolithiasis. Status post ESWL. COMPARISON: CT dated 08/07/2018. FINDINGS: Single frontal radiographic view of the abdomen was obtained and again demonstrates multiple small calculi projecting over the right renal shadow. Pelvic phleboliths are also noted. No unexpected radiopaque foreign bodies are seen. Small bowel loops are nondistended. Bony structures show no gross acute abnormalities. IMPRESSION: 1. Stable-appearing right-sided nephrolithiasis. Dictated by: Dictated on workstation # [id number]
--- NOTE | 2018-08-26 13:34 | Anesthesia-General Post-Op ---
General Patient Condition Mental Status/LOC: Same as Preop Cardiovascular: Satisfactory Nausea/Vomiting: Absent Respiratory: Satisfactory Pain: Controlled Complications: Absent Post Op Complications Complications None Follow Up Care/Instructions Patient Instructions None needed. Anesthesia/Patient Condition Patient Condition Patient is doing well, no complaints, stable vital signs, no apparent adverse anesthesia problems. No complications reported per nursing. ROGE FRY CRNA Aug 26, 2018 13:34
== END 2018-08-26 11:05 | disposition home or self-care (01) ==
LOC: SDC 06:08
PROVIDERS: ATTEND Urology
DX: N20.1 Calculus of ureter (principal); Z11.2 Encounter for screening for other bacterial diseases; N40.0 Benign prostatic hyperplasia without lower urinary tract symptoms; I25.10 Atherosclerotic heart disease of native coronary artery without angina pectoris; I10 Essential (primary) hypertension; E78.5 Hyperlipidemia, unspecified; E11.9 Type 2 diabetes mellitus without complications; M06.9 Rheumatoid arthritis, unspecified; Z79.899 Other long term (current) drug therapy; Z79.82 Long term (current) use of aspirin
CPT/HCPCS: 74018; 87081

== ENCOUNTER 2018-11-11 00:44 | Emergency (ER) | payer BC, MEDICARE ==
[~2018-11-11] VITALS: Ht 175.3 cm; Wt 93.0 kg
[~2018-11-11 00:44] MED LIST changes: +HYDR-3870 PO
--- OUTSIDE RECORDS SUMMARY | 2018-11-11 00:53 | XMS REPORT | CCD ---
Author Author [facility]ina Hoffmann Organization [facility] Address [address] [place] [address] Phone Care Team Providers Care Training Administrator Name Role Phone PP Unavailable CCM Unavailable Summary Purpose Interface Exchange Insurance Providers Payer name Policy type / Coverage type Covered constitution party ID Effective Begin Date Effective End Date Blue Cross Blue Shield [facility] Blue Cross/Blue Shield [id number] Unknown WPS Medicare Part B Blue Cross/Blue Shield [id number] Unknown Family history Father Diagnosis Age At Onset Hyperlipidemia Unknown Heart Attack Unknown Hypertension Unknown Runs in the family Diagnosis Age At Onset Hypertension Unknown Mother Diagnosis Age At Onset Diabetes mellitus Type 2 Unknown Cancer Unknown Social History Social History Element Codes Description Effective Dates Marital status Unknown Leah 08/27/2016 Number of children Unknown 1 4 adopted 11/23/[address]: 0035128 Former smoker 1970- quit 11/23/2014 Alcohol history Unknown occasionally drinks alcohol 11/23/2014 Living arrangements Unknown House 09/20/2014 Employment Unknown 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 [employer] 09/20/2014 Allergies, Adverse Reactions, Alerts Substance Reaction Codes Entered Date Inactivated Date Status * NO KNOWN DRUG ALLERGIES Unknown 09/20/2014 No Inactive Date Active Past Medical History Illness Codes Condition Status Onset Date Resolved Date Changes in skin texture ICD-9: 782.8 ICD-10: R23.4 Active 04/02/2015 Unknown Essential (primary) hypertension ICD-9: 401.1 ICD-10: I10 Active 05/30/2016 Unknown Impaired fasting glucose ICD-9: 790.21 ICD-10: R73.01 Active 05/21/2017 Unknown Type 2 diabetes mellitus without complications ICD-9: 250.00 ICD-10: E11.9 Active 10/06/2017 Unknown 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 Active 06/22/2018 Unknown Low back pain ICD-9: 724.2 ICD-10: M54.5 Active 06/22/2018 Unknown Mixed hyperlipidemia ICD- 9: 272.4 ICD-10: E78.2 Active 11/22/2014 Unknown Mixed hyperlipidemia ICD- 9: 272.2 ICD-10: E78.2 Active 10/06/2017 Unknown Rash and other nonspecific skin eruption ICD-9: 782.1 ICD-10: R21 Active 01/16/2017 Unknown Other abnormal glucose ICD-9: 790.29 ICD-10: R73.09 Active 01/16/2017 Unknown Pain in right knee ICD- 9: 719.46 ICD-10: M25.561 Active 04/18/2016 Unknown Hyperglycemia, unspecified ICD-9: 790.29 ICD-10: R73.9 Active 10/02/2015 Unknown Acute recurrent maxillary sinusitis ICD-9: 461.0 ICD-10: J01.01 Active 08/27/2016 Unknown Pain in left knee ICD-9: 719.46 ICD-10: M25.562 Active 05/30/2016 Unknown Essential (primary) hypertension ICD-9: 401.9 ICD-10: I10 Active 04/18/2016 Unknown Diabetes Unknown Active 11/23/2014 Unknown Hyperlipidemia Unknown Active 11/23/2014 Unknown Hypertension Unknown Active 11/23/2014 Unknown Osteoarthritis Unknown Active 11/23/2014 Unknown DIABETES TYPE II ICD-9: 250.00 Active 11/22/2014 Unknown ESSENTIAL HYPERTENSION ICD-9: 401.9 Active 11/22/2014 Unknown HYPERLIPIDEMIA ICD-9: 272.4 Active 11/22/2014 Unknown OSTEOARTH NOS-UNSPEC ICD- 9: 715.90 Active 11/22/2014 Unknown ACUTE BRONCHITIS ICD-9: 466.0 Active 09/19/2014 Unknown ACUTE MAXILLARY SINUSITIS ICD-9: 461.0 Active 09/19/2014 Unknown Dyspnea ICD-9: 786.09 Active 09/19/2014 Unknown Sinusitis ICD-9: 473.9 Active 09/19/2014 Unknown Problems Condition Codes Effective Dates Condition Status Changes in skin texture ICD-9: 782.8 ICD-10: R23.4 04/02/2015 Active Essential (primary) hypertension ICD-9: 401.1 ICD-10: I10 05/30/2016 Active Impaired fasting glucose ICD-9: 790.21 ICD-10: R73.01 05/21/2017 Active Type 2 diabetes mellitus without complications ICD-9: 250.00 ICD-10: E11.9 10/06/2017 Active 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 06/22/2018 Active Low back pain ICD-9: 724.2 ICD-10: M54.5 06/22/2018 Active Mixed hyperlipidemia ICD- 9: 272.4 ICD-10: E78.2 11/22/2014 Active Mixed hyperlipidemia ICD- 9: 272.2 ICD-10: E78.2 10/06/2017 Active Rash and other nonspecific skin eruption ICD-9: 782.1 ICD-10: R21 01/16/2017 Active Other abnormal glucose ICD-9: 790.29 ICD-10: R73.09 01/16/2017 Active Pain in right knee ICD- 9: 719.46 ICD-10: M25.561 04/18/2016 Active Hyperglycemia, unspecified ICD-9: 790.29 ICD-10: R73.9 10/02/2015 Active Acute recurrent maxillary sinusitis ICD-9: 461.0 ICD-10: J01.01 08/27/2016 Active Pain in left knee ICD-9: 719.46 ICD-10: M25.562 05/30/2016 Active Essential (primary) hypertension ICD-9: 401.9 ICD-10: I10 04/18/2016 Active Diabetes Unknown 11/23/2014 Active Hyperlipidemia Unknown 11/23/2014 Active Hypertension Unknown 11/23/2014 Active Osteoarthritis Unknown 11/23/2014 Active DIABETES TYPE II ICD-9: 250.00 11/22/2014 Active ESSENTIAL HYPERTENSION ICD-9: 401.9 11/22/2014 Active HYPERLIPIDEMIA ICD-9: 272.4 11/22/2014 Active OSTEOARTH NOS-UNSPEC ICD- 9: 715.90 11/22/2014 Active ACUTE BRONCHITIS ICD-9: 466.0 09/19/2014 Active ACUTE MAXILLARY SINUSITIS ICD-9: 461.0 09/19/2014 Active Dyspnea ICD-9: 786.09 09/19/2014 Active Sinusitis ICD-9: 473.9 09/19/2014 Active Medications Medication Codes Instructions Start Date Stop Date Status Fill Instructions mupirocin 2 % topical cream RxNorm: 356779 1 Application TOP TID to legs 11/03/2018 01/31/2019 Active mupirocin 2 % topical cream RxNorm: 103702 1 Application TOP BID 08/20/2018 10/18/2018 Inactive Toprol XL 25 mg tablet,extended release RxNorm: 675925 Tablet(s) TAKE 1 TABLET BY MOUTH EVERY DAY 08/17/2018 08/11/2019 Active mupirocin 2 % topical cream RxNorm: 802102 1 Application TOP BID 07/30/2018 08/19/2018 Inactive mupirocin 2 % topical cream RxNorm: 837112 1 Application TOP BID 07/14/2018 07/29/2018 Inactive Lipitor 20 mg tablet RxNorm: 013060 TAKE ONE TABLET BY MOUTH DAILY AT BEDTIME 05/18/2018 05/12/2019 Active Generic For:LIPITOR 20MG 05/18/2018 8:43:47 AM triamterene 37.5 mg-hydrochlorothiazide 25 mg capsule RxNorm: 260139 TAKE 1 CAPSULE BY MOUTH DAILY 05/18/2018 05/12/2019 Active Generic For:DYAZIDE 37.5-25 05/18/2018 8:43:43 AM Toprol XL 25 mg tablet,extended release RxNorm: 641954 TAKE 1 TABLET BY MOUTH EVERY DAY 05/18/2018 08/16/2018 Inactive Generic For:TOPROL XL 25MG 05/18/2018 9:31:21 AM betamethasone valerate 0.1 % topical ointment RxNorm: 830757 APPLY TOPICALLY TO SKIN LESIONS/RASH ON LEGS, ARMS AND BACK THREE TIMES DAILY 03/25/2018 05/23/2018 Inactive 03/25/2018 10:44:47 AM terazosin 2 mg capsule RxNorm: 082274 TAKE 1 CAPSULE BY MOUTH DAILY 02/16/2018 08/14/2018 Inactive 02/16/2018 9:02:27 AM Toprol XL 25 mg tablet,extended release RxNorm: 979983 TAKE 1 TABLET BY MOUTH EVERY DAY 02/16/2018 05/17/2018 Inactive Generic For:TOPROL XL 25MG 02/16/2018 9:19:34 AM terazosin 2 mg capsule RxNorm: 959933 TAKE 1 CAPSULE BY MOUTH DAILY 02/16/2018 02/15/2018 Inactive betamethasone valerate 0.1 % topical ointment RxNorm: 107648 APPLY TOPICALLY TO SKIN LESIONS/RASH ON LEGS, ARMS AND BACK THREE TIMES DAILY 12/12/2017 02/09/2018 Inactive 12/12/2017 11:42:38 AM Toprol XL 25 mg tablet,extended release RxNorm: 439748 TAKE 1 TABLET BY MOUTH EVERY DAY 11/18/2017 02/15/2018 Inactive Generic For:TOPROL XL 25MG 11/18/2017 9:12:07 AM oxycodone 5 mg tablet RxNorm: 3590912 1 Tablet(s) PO BID 10/06/2017 11/04/2017 Inactive betamethasone valerate 0.1 % topical ointment RxNorm: 752848 APPLY TOPICALLY TO SKIN LESIONS/RASH ON LEGS, ARMS AND BACK THREE TIMES DAILY 09/02/2017 10/31/2017 Inactive 09/01/2017 4:21:36 PM terazosin 2 mg capsule RxNorm: 612768 TAKE 1 CAPSULE BY MOUTH DAILY 08/20/2017 02/15/2018 Inactive 08/20/2017 8:54:09 AM Toprol XL 25 mg tablet,extended release RxNorm: 683809 TAKE 1 TABLET BY MOUTH EVERY DAY 08/20/2017 11/17/2017 Inactive Generic For:TOPROL XL 25MG 08/20/2017 8:58:18 AM betamethasone valerate 0.1 % topical ointment RxNorm: 600107 1 Application TOP TID apply to skin lesions/rash on legs, arms, back 06/27/2017 08/25/2017 Inactive Lipitor 20 mg tablet RxNorm: 356879 TAKE ONE TABLET BY MOUTH DAILY AT BEDTIME 05/22/2017 05/16/2018 Inactive Generic For:LIPITOR 20MG 05/22/2017 9:16:26 AM triamterene 37.5 mg-hydrochlorothiazide 25 mg capsule RxNorm: 524388 TAKE 1 CAPSULE BY MOUTH DAILY 05/22/2017 05/16/2018 Inactive Generic For:DYAZIDE 37.5-25 05/22/2017 9:16:22 AM betamethasone valerate 0.1 % topical ointment RxNorm: 846586 1 Application TOP TID apply to skin lesions/rash on legs, arms, back 05/21/2017 06/19/2017 Inactive terazosin 2 mg capsule RxNorm: 048064 TAKE 1 CAPSULE BY MOUTH DAILY 02/19/2017 08/17/2017 Inactive 02/19/2017 11:33:02 AM clobetasol 0.05 % topical cream RxNorm: 963036 1 Application TOP daily as needed 01/17/2017 11/02/2018 Inactive mupirocin 2 % topical cream RxNorm: 322363 1 Application TOP BID 01/16/2017 02/14/2017 Inactive terazosin 2 mg capsule RxNorm: 900000 1 Capsule(s) PO daily 08/27/2016 02/18/2017 Inactive oxycodone 5 mg tablet RxNorm: 7218805 1 Tablet(s) PO BID 08/27/2016 10/10/2016 Inactive ceftriaxone 500 mg solution for injection RxNorm: 4340085 1 Milliliter(s) Inj 08/27/2016 08/27/2016 Inactive azithromycin 250 mg tablet RxNorm: 574541 1 Tablet(s) PO UD take two pills on day #1, then one pill daily x 4 days 08/27/2016 01/15/2017 Inactive Toprol XL 25 mg tablet,extended release RxNorm: 429334 1 Tablet(s) PO daily 08/26/2016 12/23/2016 Inactive oxycodone 5 mg tablet RxNorm: 1615333 1 Tablet(s) PO BID 06/28/2016 07/27/2016 Inactive Lipitor 20 mg tablet RxNorm: 380375 1 Tablet(s) QHS TAKE 1 TABLET BY MOUTH ONCE DAILY AT BEDTIME. 05/27/2016 05/21/2017 Inactive Generic For:LIPITOR 20MG 03/24/2015 11:51:16 AM N O T I C E PRESCRIPTION PREVIOUSLY AUTHORIZED BY DOCTOR:NICHOLE ESPANA triamterene 37.5 mg-hydrochlorothiazide 25 mg capsule RxNorm: 713047 1 Capsule(s) PO daily 05/27/2016 05/21/2017 Inactive terazosin 2 mg capsule RxNorm: 067165 1 Capsule(s) PO daily 04/22/2016 08/19/2016 Inactive terazosin 2 mg capsule RxNorm: 488502 1 Capsule(s) PO daily 04/22/2016 04/21/2016 Inactive terazosin 5 mg capsule RxNorm: 166752 1/2 Tablet(s) PO QPM 04/19/2016 04/21/2016 Inactive Toprol XL 25 mg tablet,extended release RxNorm: 967285 1 Tablet(s) PO daily 04/16/2016 04/15/2016 Inactive Toprol XL 25 mg tablet,extended release RxNorm: 375162 1 Tablet(s) PO daily 04/16/2016 08/13/2016 Inactive pantoprazole 40 mg tablet,delayed release RxNorm: 717823 1 Tablet(s) PO daily 04/16/2016 04/15/2016 Inactive pantoprazole 40 mg tablet,delayed release RxNorm: 250429 1 Tablet(s) PO daily 04/16/2016 01/15/2017 Inactive Toprol XL 50 mg tablet,extended release RxNorm: 325228 1 Tablet(s) PO daily 02/28/2016 04/15/2016 Inactive terazosin 5 mg capsule RxNorm: 477382 1 Tablet(s) PO QPM 01/03/2016 04/18/2016 Inactive oxycodone 5 mg tablet RxNorm: 6848363 1 Tablet(s) PO UD 1/2 at 3pm, 1 pill at 9pm and may take up to 2 pills bid if needed. 01/03/2016 06/27/2016 Inactive Toprol XL 50 mg tablet,extended release RxNorm: 339747 1 Tablet(s) PO daily 11/15/2015 02/27/2016 Inactive terazosin 5 mg capsule RxNorm: 904687 1 Tablet(s) PO QPM 07/06/2015 01/01/2016 Inactive Lipitor 20 mg tablet RxNorm: 582055 1 Tablet(s) QHS TAKE 1 TABLET BY MOUTH ONCE DAILY AT BEDTIME. 06/01/2015 05/25/2016 Inactive Generic For:LIPITOR 20MG 03/24/2015 11:51:16 AM N O T I C E PRESCRIPTION PREVIOUSLY AUTHORIZED BY DOCTOR:NICHOLE ESPANA Kenalog 40 mg/mL suspension for injection RxNorm: 0101185 1 Milliliter(s) Inj 05/25/2015 05/25/2015 Inactive terazosin 5 mg capsule RxNorm: 342178 1 Tablet(s) PO QPM 05/04/2015 07/05/2015 Inactive Toprol XL 50 mg tablet,extended release RxNorm: 503981 1 Tablet(s) PO daily 05/04/2015 10/30/2015 Inactive terazosin 5 mg capsule RxNorm: 647911 1 Tablet(s) PO QPM 05/04/2015 05/03/2015 Inactive triamterene 37.5 mg-hydrochlorothiazide 25 mg capsule RxNorm: 244903 1 Capsule(s) PO daily 04/26/2015 05/26/2016 Inactive Voltaren 1 % topical gel RxNorm: 021112 4 Gram(s) TOP QID to knees 04/19/2015 06/21/2018 Inactive Lipitor 20 mg tablet RxNorm: 333220 Tablet(s) TAKE 1 TABLET BY MOUTH ONCE DAILY AT BEDTIME. 04/13/2015 05/31/2015 Inactive Generic For:LIPITOR 20MG 03/24/2015 11:51:16 AM N O T I C E PRESCRIPTION PREVIOUSLY AUTHORIZED BY DOCTOR:NICHOLE ESPANA Lipitor 20 mg tablet RxNorm: 442628 TAKE 1 TABLET BY MOUTH ONCE DAILY AT BEDTIME. 03/24/2015 04/12/2015 Inactive Generic For:LIPITOR 20MG 03/24/2015 11:51:16 AM N O T I C E PRESCRIPTION PREVIOUSLY AUTHORIZED BY DOCTOR:NICHOLE ESPANA Lipitor 20 mg tablet RxNorm: 066062 TAKE 1 TABLET BY MOUTH ONCE DAILY AT BEDTIME. 03/24/2015 03/23/2015 Inactive Generic For:LIPITOR 20MG 03/24/2015 11:51:16 AM N O T I C E PRESCRIPTION PREVIOUSLY AUTHORIZED BY DOCTOR:NICHOLE ESPANA Lipitor 20 mg tablet RxNorm: 540315 1 Tablet(s) PO daily 03/24/2015 03/23/2015 Inactive Toprol XL 50 mg tablet,extended release RxNorm: 044611 1 Tablet(s) PO daily 03/08/2015 05/03/2015 Inactive Toprol XL 50 mg tablet,extended release RxNorm: 016493 1 Tablet(s) PO daily 03/08/2015 03/07/2015 Inactive Toprol XL 50 mg tablet,extended release RxNorm: 668264 1 Tablet(s) PO daily 03/07/2015 03/07/2015 Inactive triamterene 37.5 mg-hydrochlorothiazide 25 mg capsule RxNorm: 176918 1 Capsule(s) PO daily 01/26/2015 04/25/2015 Inactive Hytrin 5 mg tablet RxNorm: 003181 1 Tablet(s) PO QPM 01/25/2015 03/25/2015 Inactive triamterene 37.5 mg-hydrochlorothiazide 25 mg capsule RxNorm: 783544 1 Capsule(s) PO daily 01/25/2015 01/25/2015 Inactive Voltaren 1 % topical gel RxNorm: 621726 4 Gram(s) TOP QID to knees 11/23/2014 02/20/2015 Inactive aspirin 81 mg chewable tablet RxNorm: 453565 1 Tablet(s) PO daily 09/20/2014 12/02/2017 Inactive azithromycin 250 mg tablet RxNorm: 519081 2 Tablet(s) PO on day #1, then 1 pill on days #2-5 09/20/2014 04/02/2015 Inactive [SAVINGS FOR NON-COVERED DRUGS -- BIN:[id number], PCN: ASPROD1, Group: XXXXX, ID# XXXXXXX, Questions: . 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 THIS IS NOT INSURANCE.] Vitamin D3 1,000 unit capsule RxNorm: 946272 1 Capsule(s) PO daily 09/20/2014 08/27/2016 Inactive fish oil-dha-epa 1,200 mg-144 mg-216 mg capsule RxNorm: 1 Capsule(s) PO daily 09/20/2014 08/27/2016 Inactive Lipitor 20 mg tablet RxNorm: 271385 1 Tablet(s) PO daily 09/20/2014 03/23/2015 Inactive naproxen sodium 220 mg tablet RxNorm: 282746 1 Tablet(s) PO BID as needed for pain 09/20/2014 01/02/2016 Inactive penicillin V potassium 500 mg tablet RxNorm: 630590 1 Tablet(s) PO daily -Prescribed by Dr. Adam No Start Date Active Fish Oil 360 mg-1,200 mg capsule RxNorm: 474058 1 Capsule(s) PO daily No Start Date Active Vitamin D3 2,000 unit tablet RxNorm: 264299 1 Tablet(s) PO daily No Start Date Active Stool Softener 100 mg capsule RxNorm: 4892815 1 Capsule(s) PO BID No Start Date Active Probiotic oral RxNorm: 6205 oral No Start Date Active tamsulosin 0.4 mg capsule RxNorm: 493731 1 Capsule(s) PO daily No Start Date Active Vitamin C 1,000 mg tablet RxNorm: 781490 1 Tablet(s) PO daily No Start Date Active rifampin 150 mg capsule RxNorm: 672782 1 Capsule(s) PO daily No Start Date 08/26/2016 Inactive naproxen 250 mg tablet RxNorm: 905851 Tablet(s) PO BID as needed No Start Date 06/21/2018 Inactive calcium carbonate 550 mg chewable tablet RxNorm: 351402 1 Tablet(s) PO QID as needed No Start Date 08/26/2016 Inactive clobetasol 0.05 % topical cream RxNorm: 051082 1 Application TOP daily as needed No Start Date 01/16/2017 Inactive Medication Administered Medication Codes Instructions Start Date Status ceftriaxone 500 mg solution for injection RxNorm: 5364780 1Milliliter 08/27/2016 No longer Active Kenalog 40 mg/mL suspension for injection RxNorm: 5480782 1Milliliter 05/25/2015 No longer Active Immunizations Vaccine Codes Date Status Influenza CVX: 141 04/06/2016 completed Assessments Condition Codes Effective Dates Type 2 diabetes mellitus without complications ICD-10: E11.9 ICD-9: 250.00 11/03/2018 Changes in skin texture ICD-10: R23.4 ICD-9: 782.8 11/03/2018 Essential (primary) hypertension ICD-10: I10 ICD-9: 401.1 11/03/2018 Low back pain ICD-10: M54.5 ICD-9: 724.2 06/22/2018 Excoriation (skin-picking) disorder ICD-10: F42.4 ICD-9: 307.9 06/22/2018 Mixed hyperlipidemia ICD-10: E78.2 ICD-9: 272.4 [...] Hyperglycemia, unspecified ICD-10: R73.9 ICD-9: 790.29 10/03/2015 ESSENTIAL HYPERTENSION ICD-9: 401.9 11/23/2014 DIABETES TYPE II ICD-9: 250.00 11/23/2014 HYPERLIPIDEMIA ICD-9: 272.4 11/23/2014 OSTEOARTH NOS-UNSPEC ICD-9: 715.90 11/23/2014 ACUTE MAXILLARY SINUSITIS ICD-9: 461.0 09/20/2014 Dyspnea ICD-9: 786.09 09/20/2014 Sinusitis ICD-9: 473.9 09/20/2014 ACUTE BRONCHITIS ICD-9: 466.0 09/20/2014 Reason For Visit Reason For Visit Effective Dates Notes hypertension 11/03/2018 hypertension 06/22/2018 hypertension 02/18/2018 hypertension 10/06/2017 sores 06/23/2017 hypertension 05/21/2017 hypertension 01/16/2017 hypertension 08/27/2016 hypertension 05/30/2016 hypertension 04/19/2016 knee pain 01/03/2016 knee pain 10/03/2015 knee pain 05/25/2015 knee pain 04/03/2015 knee pain 11/23/2014 sinus congestion 09/20/2014 Results Observation Observation Code Item Item Code Result Date Lipid Ord30 CHOL 129 mg/dL 11/03/2018 Lipid Ord30 HDL 45.0 mg/dl 11/03/2018 Lipid Ord30 TRIG 65 mg/dL 11/03/2018 Lipid Ord30 LDL 71 mg/dL 11/03/2018 Lipid Ord30 C/HDL 2.9 Ratio 11/03/2018 Comp Metabolic Bvv186 NA 138 mEq/L 11/03/2018 Comp Metabolic Pwm205 K 3.9 mEq/L 11/03/2018 Comp Metabolic Dem648 CL 101 mEq/L 11/03/2018 Comp Metabolic Rdm176 CO2 30.0 mEq/L 11/03/2018 Comp Metabolic Hns516 ANION GAP 11 11/03/2018 Comp Metabolic Mox524 GLUCOSE 95 mg/dL 11/03/2018 Comp Metabolic Jkp585 Creat 0.9 mg/dL 11/03/2018 Comp Metabolic Mjh651 eGFR 92 ml/min/1.73m2 11/03/2018 Comp Metabolic Fje320 BUN 17 mg/dL 11/03/2018 Comp Metabolic Wpd150 B/C Ratio 20.0 Ratio 11/03/2018 Comp Metabolic Omv720 CALCIUM 9.7 mg/dL 11/03/2018 Comp Metabolic Cix995 ALK PHOS 79 U/L 11/03/2018 Comp Metabolic Mbf896 AST(SGOT) 15 U/L 11/03/2018 Comp Metabolic Cut820 ALT(SGPT) 17 U/L 11/03/2018 Comp Metabolic Ubb828 BILI T 1.0 mg/dL 11/03/2018 Comp Metabolic Sgq759 ALBUMIN 4.1 g/dL 11/03/2018 Comp Metabolic Xze559 TPRO 6.6 g/dL 11/03/2018 Comp Metabolic Rxe944 GLOB 2.5 g/dL 11/03/2018 Comp Metabolic Ped376 A/G Ratio 1.7 Ratio 11/03/2018 Comp Metabolic Uli866 Osmo 277 mOsmo 11/03/2018 Cbc With Differential Ord2 WBC 6.54 K/ul 11/03/2018 Cbc With Differential Ord2 RBC 4.59 M/ul 11/03/2018 Cbc With Differential Ord2 HGB 14.4 g/dl 11/03/2018 Cbc With Differential Ord2 HCT 43.5 % 11/03/2018 Cbc With Differential Ord2 Neut% 56.0 % 11/03/2018 Cbc With Differential Ord2 MCV 94.8 fl 11/03/2018 Cbc With Differential Ord2 Lymph% 25.7 % 11/03/2018 Cbc With Differential Ord2 MCH 31.4 pg 11/03/2018 Cbc With Differential Ord2 [place]% 9.6 % 11/03/2018 Cbc With Differential Ord2 MCHC 33.1 pg 11/03/2018 Cbc With Differential Ord2 Eos% 7.5 % 11/03/2018 Cbc With Differential Ord2 PLT 218 K/ul 11/03/2018 Cbc With Differential Ord2 Baso% 1.2 % 11/03/2018 Cbc With Differential Ord2 RDW 13.1 % 11/03/2018 Cbc With Differential Ord2 Neut ABS# 3.66 K/ul 11/03/2018 Cbc With Differential Ord2 Lymph ABS# 1.68 K/ul 11/03/2018 Cbc With Differential Ord2 [place] ABS# 0.6 K/ul 11/03/2018 Cbc With Differential Ord2 Eos ABS# 0.5 K/ul 11/03/2018 Cbc With Differential Ord2 Baso ABS# 0.1 K/ul 11/03/2018 Microalbumin Rjt817 MicroAlb 4.8 mg/dL 11/03/2018 Tsh Ord6 TSH (3rd IS) 1.15 uIU/mL 11/03/2018 %Hba1C Lnf638 % HbA1c 89483- 6 6.3 % 11/03/2018 %Hba1C Fsg796 Gluc Ave 134 mg/dL 11/03/2018 Lipid Ord30 CHOL 121 mg/dL 10/03/2017 Lipid [...] 31.1 pg 10/03/2017 Cbc With Differential Ord2 [place]% 10.4 % 10/03/2017 Cbc With Differential Ord2 [...] 1.44 K/ul 10/03/2017 Cbc With Differential Ord2 [place] ABS# 0.7 K/ul 10/03/2017 Cbc With Differential Ord2 Eos ABS# 0.3 K/ul 10/03/2017 Cbc With Differential Ord2 Baso ABS# 0.1 K/ul 10/03/2017 %Hba1C Dnc675 % HbA1c 08934- 6 6.6 % 10/03/2017 %Hba1C Ipq930 Gluc Ave 143 mg/dL 10/03/2017 Uric Acid [...] Metabolic Ord15 CALCIUM 9.4 mg/dL 09/23/2017 %Hba1C Axk708 % HbA1c 35270- 6 6.6 % 05/21/2017 %Hba1C Ucs656 Gluc Ave 143 mg/dL 05/21/2017 Comp Metabolic Ujv365 NA 138 mEq/L 05/21/2017 Comp Metabolic Pnj098 K 3.8 mEq/L 05/21/2017 Comp Metabolic Pcx967 CL 99 mEq/L 05/21/2017 Comp Metabolic Kah270 CO2 31.0 mEq/L 05/21/2017 Comp Metabolic Squ790 ANION GAP 12 05/21/2017 Comp Metabolic Fpk804 GLUCOSE 93 mg/dL 05/21/2017 Comp Metabolic Yvn569 Creat 0.8 mg/dL 05/21/2017 Comp Metabolic Shl462 eGFR 102 ml/min/1.73m2 05/21/2017 Comp Metabolic Puh855 BUN 13 mg/dL 05/21/2017 Comp Metabolic Jqf140 B/C Ratio 16.7 Ratio 05/21/2017 Comp Metabolic Ngh363 CALCIUM 9.9 mg/dL 05/21/2017 Comp Metabolic Cwd443 ALK PHOS 99 U/L 05/21/2017 Comp Metabolic Jjv174 AST(SGOT) 18 U/L 05/21/2017 Comp Metabolic Plt759 ALT(SGPT) 29 U/L 05/21/2017 Comp Metabolic Hot053 BILI T 0.7 mg/dL 05/21/2017 Comp Metabolic Qth128 ALBUMIN 4.1 g/dL 05/21/2017 Comp Metabolic Gtp509 TPRO 6.6 g/dL 05/21/2017 Comp Metabolic Eqq494 GLOB 2.6 g/dL 05/21/2017 Comp Metabolic Rhw503 A/G Ratio 1.6 Ratio 05/21/2017 Comp Metabolic Mfd856 Osmo 275 mOsmo 05/21/2017 Tsh Ord6 hTSH II 1.34 uIU/mL 05/21/2017 %Hba1C Sao043 % HbA1c 89825- 6 6.4 % 10/04/2015 %Hba1C Vld929 Gluc Ave 137 mg/dL 10/04/2015 Comp Metabolic Xxv758 NA 139 mEq/L 10/04/2015 Comp Metabolic Hcj016 K 3.8 mEq/L 10/04/2015 Comp Metabolic Giy566 CL 104 mEq/L 10/04/2015 Comp Metabolic Bla376 CO2 32.0 mEq/L 10/04/2015 Comp Metabolic Epp828 ANION GAP 7 10/04/2015 Comp Metabolic Pkk922 GLUCOSE 112 mg/dL 10/04/2015 Comp Metabolic Jch758 Creat 0.8 mg/dL 10/04/2015 Comp Metabolic Vda434 eGFR 102 ml/min/1.73m2 10/04/2015 Comp Metabolic Ljq324 BUN 16 mg/dL 10/04/2015 Comp Metabolic Jpt618 B/C Ratio 20.5 Ratio 10/04/2015 Comp Metabolic Rhu791 CALCIUM 9.3 mg/dL 10/04/2015 Comp Metabolic Xqz763 ALK PHOS 87 U/L 10/04/2015 Comp Metabolic Izw897 AST(SGOT) 17 U/L 10/04/2015 Comp Metabolic Udx538 ALT(SGPT) 24 U/L 10/04/2015 Comp Metabolic Iwe881 BILI T 0.6 mg/dL 10/04/2015 Comp Metabolic Wqs111 ALBUMIN 4.0 g/dL 10/04/2015 Comp Metabolic Pic340 TPRO 6.3 g/dL 10/04/2015 Comp Metabolic Tdu172 GLOB 2.3 g/dL 10/04/2015 Comp Metabolic Gty012 A/G Ratio 1.7 Ratio 10/04/2015 Comp Metabolic Yyd456 Osmo 279 mOsmo 10/04/2015 Lipid Ord30 CHOL [...] 31.3 pg 10/04/2015 Cbc With Differential Ord2 [place]% 9.1 % 10/04/2015 Cbc With Differential Ord2 [...] 1.46 K/ul 10/04/2015 Cbc With Differential Ord2 [place] ABS# 0.6 K/ul 10/04/2015 Cbc With Differential Ord2 Eos ABS# 0.4 K/ul 10/04/2015 Cbc With Differential Ord2 Baso ABS# 0.1 K/ul 10/04/2015 %Hba1C Yox825 % HbA1c 27091- 6 6.5 % 11/24/2014 %Hba1C Pic634 Gluc Ave 140 mg/dL 11/24/2014 Lipid Ord30 CHOL 121 mg/dL 11/23/2014 Lipid Ord30 HDL 37.0 mg/dl 11/23/2014 Lipid Ord30 TRIG 93 mg/dL 11/23/2014 Lipid Ord30 LDL 65 mg/dL 11/23/2014 Lipid Ord30 C/HDL 3.3 Ratio 11/23/2014 Comp Metabolic Vbv070 NA 135 mEq/L 11/23/2014 Comp Metabolic Bjl513 K 3.7 mEq/L 11/23/2014 Comp Metabolic Uol468 CL 101 mEq/L 11/23/2014 Comp Metabolic Don776 CO2 28.0 mEq/L 11/23/2014 Comp Metabolic Ago422 ANION GAP 10 11/23/2014 Comp Metabolic Kcw615 GLUCOSE 104 mg/dL 11/23/2014 Comp Metabolic Mle610 Creat 0.8 mg/dL 11/23/2014 Comp Metabolic Ynb823 eGFR 104 ml/min/1.73m2 11/23/2014 Comp Metabolic Gji487 BUN 10 mg/dL 11/23/2014 Comp Metabolic Tog953 B/C Ratio 13.0 Ratio 11/23/2014 Comp Metabolic Ilx449 CALCIUM 9.7 mg/dL 11/23/2014 Comp Metabolic Mts100 ALK PHOS 92 U/L 11/23/2014 Comp Metabolic Ztc750 AST(SGOT) 17 U/L 11/23/2014 Comp Metabolic Gne361 ALT(SGPT) 26 U/L 11/23/2014 Comp Metabolic Oxe245 BILI T 1.1 mg/dL 11/23/2014 Comp Metabolic Vpi091 ALBUMIN 4.1 g/dL 11/23/2014 Comp Metabolic Ovw000 TPRO 6.3 g/dL 11/23/2014 Comp Metabolic Jon545 GLOB 2.2 g/dL 11/23/2014 Comp Metabolic Gpu400 A/G Ratio 1.9 Ratio 11/23/2014 Comp Metabolic Swa696 Osmo 269 mOsmo 11/23/2014 Cbc With Differential [...] Result Effective Dates Constitutional No recent illness 11/03/2018 Constitutional No chills 11/03/2018 Constitutional No fatigue 11/03/2018 Constitutional No fever 11/03/2018 Constitutional No insomnia 11/03/2018 Constitutional No malaise 11/03/2018 Eyes No blindness 11/03/2018 Eyes No vision change 11/03/2018 Ears/Nose/Throat/Neck No dental pain 11/03/2018 Ears/Nose/Throat/Neck No dizziness 11/03/2018 Ears/Nose/Throat/Neck No dysphagia 11/03/2018 Ears/Nose/Throat/Neck No headache 11/03/2018 Ears/Nose/Throat/Neck No hearing loss 11/03/2018 Ears/Nose/Throat/Neck No nasal allergies 11/03/2018 Ears/Nose/Throat/Neck No sore throat 11/03/2018 Ears/Nose/Throat/Neck No postnasal drip 11/03/2018 Ears/Nose/Throat/Neck No sinus congestion 11/03/2018 Cardiovascular No chest pain/pressure 11/03/2018 Cardiovascular No dyspnea 11/03/2018 Cardiovascular No edema 11/03/2018 Cardiovascular No exercise intolerance 11/03/2018 Cardiovascular No fatigue 11/03/2018 Cardiovascular No near-syncope/dizziness 11/03/2018 Cardiovascular No palpitations 11/03/2018 Respiratory No chest congestion 11/03/2018 Respiratory No chest tightness 11/03/2018 Respiratory No cough 11/03/2018 Respiratory No dyspnea 11/03/2018 Respiratory No pedal edema 11/03/2018 Gastrointestinal No abdominal pain 11/03/2018 Gastrointestinal No constipation 11/03/2018 Gastrointestinal No diarrhea 11/03/2018 Gastrointestinal No gastroesophageal reflux 11/03/2018 Gastrointestinal No nausea 11/03/2018 Gastrointestinal No vomiting 11/03/2018 Musculoskeletal stiffness 11/03/2018 Musculoskeletal No swelling 11/03/2018 Musculoskeletal arthralgia(s) 11/03/2018 Musculoskeletal back pain 11/03/2018 Musculoskeletal No muscle weakness 11/03/2018 Musculoskeletal No myalgias 11/03/2018 Dermatologic No rash 11/03/2018 Dermatologic No sores 11/03/2018 Neurologic No alteration of consciousness 11/03/2018 Neurologic No dizziness 11/03/2018 Neurologic No headache 11/03/2018 Neurologic No syncope 11/03/2018 Psychiatric No anxiety 11/03/2018 Psychiatric No depression 11/03/2018 Endocrine diabetes mellitus type 2 11/03/2018 Constitutional No recent illness 06/22/2018 Constitutional No chills 06/22/2018 Constitutional No fatigue 06/22/2018 Constitutional No fever 06/22/2018 Constitutional No insomnia 06/22/2018 Constitutional No malaise 06/22/2018 Eyes No blindness 06/22/2018 Eyes No vision change 06/22/2018 Ears/Nose/Throat/Neck No dental pain 06/22/2018 Ears/Nose/Throat/Neck No dizziness 06/22/2018 Ears/Nose/Throat/Neck No dysphagia 06/22/2018 Ears/Nose/Throat/Neck No headache 06/22/2018 Ears/Nose/Throat/Neck No hearing loss 06/22/2018 Ears/Nose/Throat/Neck No nasal allergies 06/22/2018 Ears/Nose/Throat/Neck No sore throat 06/22/2018 Ears/Nose/Throat/Neck No postnasal drip 06/22/2018 Ears/Nose/Throat/Neck No sinus congestion 06/22/2018 Cardiovascular No chest pain/pressure 06/22/2018 Cardiovascular No dyspnea 06/22/2018 Cardiovascular No edema 06/22/2018 Cardiovascular No exercise intolerance 06/22/2018 Cardiovascular No fatigue 06/22/2018 Cardiovascular No near-syncope/dizziness 06/22/2018 Cardiovascular No palpitations 06/22/2018 Respiratory No chest congestion 06/22/2018 Respiratory No chest tightness 06/22/2018 Respiratory No cough 06/22/2018 Respiratory No dyspnea 06/22/2018 Respiratory No pedal edema 06/22/2018 Gastrointestinal No abdominal pain 06/22/2018 Gastrointestinal No constipation 06/22/2018 Gastrointestinal No diarrhea 06/22/2018 Gastrointestinal No gastroesophageal reflux 06/22/2018 Gastrointestinal No nausea 06/22/2018 Gastrointestinal No vomiting 06/22/2018 Musculoskeletal stiffness 06/22/2018 Musculoskeletal No swelling 06/22/2018 Musculoskeletal arthralgia(s) 06/22/2018 Musculoskeletal No muscle weakness 06/22/2018 Musculoskeletal No myalgias 06/22/2018 Dermatologic No rash 06/22/2018 Dermatologic No sores 06/22/2018 Neurologic No alteration of consciousness 06/22/2018 Neurologic No dizziness 06/22/2018 Neurologic No headache 06/22/2018 Neurologic No syncope 06/22/2018 Psychiatric No anxiety 06/22/2018 Psychiatric No depression 06/22/2018 Endocrine diabetes mellitus type 2 06/22/2018 Musculoskeletal back pain 06/22/2018 Constitutional No recent illness 02/18/2018 Constitutional No chills 02/18/2018 Constitutional No fatigue 02/18/2018 Constitutional No fever 02/18/2018 Constitutional No insomnia 02/18/2018 Constitutional No malaise 02/18/2018 Eyes No blindness 02/18/2018 Eyes No vision change 02/18/2018 Ears/Nose/Throat/Neck No dental pain 02/18/2018 Ears/Nose/Throat/Neck No dizziness 02/18/2018 Ears/Nose/Throat/Neck No dysphagia 02/18/2018 Ears/Nose/Throat/Neck No headache 02/18/2018 Ears/Nose/Throat/Neck No hearing loss 02/18/2018 Ears/Nose/Throat/Neck No nasal allergies 02/18/2018 Ears/Nose/Throat/Neck No sore throat 02/18/2018 Ears/Nose/Throat/Neck No postnasal drip 02/18/2018 Ears/Nose/Throat/Neck No sinus congestion 02/18/2018 Cardiovascular No chest pain/pressure 02/18/2018 Cardiovascular No dyspnea 02/18/2018 Cardiovascular No edema 02/18/2018 Cardiovascular No exercise intolerance 02/18/2018 Cardiovascular No fatigue 02/18/2018 Cardiovascular No near-syncope/dizziness 02/18/2018 Cardiovascular No palpitations 02/18/2018 Respiratory No chest congestion 02/18/2018 Respiratory No chest tightness 02/18/2018 Respiratory No cough 02/18/2018 Respiratory No dyspnea 02/18/2018 Respiratory No pedal edema 02/18/2018 Gastrointestinal No abdominal pain 02/18/2018 Gastrointestinal No constipation 02/18/2018 Gastrointestinal No diarrhea 02/18/2018 Gastrointestinal No gastroesophageal reflux 02/18/2018 Gastrointestinal No nausea 02/18/2018 Gastrointestinal No vomiting 02/18/2018 Genitourinary/Nephrology No dysuria 02/18/2018 Genitourinary/Nephrology No nocturia 02/18/2018 Genitourinary/Nephrology No urinary incontinence 02/18/2018 Musculoskeletal stiffness 02/18/2018 Musculoskeletal No swelling 02/18/2018 Musculoskeletal arthralgia(s) 02/18/2018 Musculoskeletal No muscle weakness 02/18/2018 Musculoskeletal No myalgias 02/18/2018 Dermatologic No rash 02/18/2018 Dermatologic No sores 02/18/2018 Neurologic No alteration of consciousness 02/18/2018 Neurologic No dizziness 02/18/2018 Neurologic No headache 02/18/2018 Neurologic No syncope 02/18/2018 Psychiatric No anxiety 02/18/2018 Psychiatric No depression 02/18/2018 Constitutional No recent illness 10/06/2017 Constitutional No chills 10/06/2017 Constitutional No fatigue 10/06/2017 Constitutional No fever 10/06/2017 Constitutional No insomnia 10/06/2017 Constitutional No malaise 10/06/2017 Eyes No blindness 10/06/2017 Eyes No vision change 10/06/2017 Ears/Nose/Throat/Neck No dental pain 10/06/2017 Ears/Nose/Throat/Neck No dizziness 10/06/2017 Ears/Nose/Throat/Neck No dysphagia 10/06/2017 Ears/Nose/Throat/Neck No headache 10/06/2017 Ears/Nose/Throat/Neck No hearing loss 10/06/2017 Ears/Nose/Throat/Neck No nasal allergies 10/06/2017 Ears/Nose/Throat/Neck No sore throat 10/06/2017 Ears/Nose/Throat/Neck No postnasal drip 10/06/2017 Ears/Nose/Throat/Neck No sinus congestion 10/06/2017 Cardiovascular No chest pain/pressure 10/06/2017 Cardiovascular No dyspnea 10/06/2017 Cardiovascular No edema 10/06/2017 Cardiovascular No exercise intolerance 10/06/2017 Cardiovascular No fatigue 10/06/2017 Cardiovascular No near-syncope/dizziness 10/06/2017 Cardiovascular No palpitations 10/06/2017 Respiratory No chest congestion 10/06/2017 Respiratory No chest tightness 10/06/2017 Respiratory No cough 10/06/2017 Respiratory No dyspnea 10/06/2017 Respiratory No pedal edema 10/06/2017 Gastrointestinal No abdominal pain 10/06/2017 Gastrointestinal No constipation 10/06/2017 Gastrointestinal No diarrhea 10/06/2017 Gastrointestinal No gastroesophageal reflux 10/06/2017 Gastrointestinal No nausea 10/06/2017 Gastrointestinal No vomiting 10/06/2017 Genitourinary/Nephrology No dysuria 10/06/2017 Genitourinary/Nephrology No nocturia 10/06/2017 Genitourinary/Nephrology No urinary incontinence 10/06/2017 Musculoskeletal stiffness 10/06/2017 Musculoskeletal No swelling 10/06/2017 Musculoskeletal arthralgia(s) 10/06/2017 Musculoskeletal No muscle weakness 10/06/2017 Musculoskeletal No myalgias 10/06/2017 Dermatologic rash 10/06/2017 Dermatologic sores 10/06/2017 Dermatologic No scar 10/06/2017 Neurologic No alteration of consciousness 10/06/2017 Neurologic No dizziness 10/06/2017 Neurologic No headache 10/06/2017 Neurologic No neck pain 10/06/2017 Neurologic No syncope 10/06/2017 Psychiatric No anxiety 10/06/2017 Psychiatric No depression 10/06/2017 Constitutional No recent illness 06/23/2017 Constitutional No chills 06/23/2017 Constitutional No fatigue 06/23/2017 Constitutional No fever 06/23/2017 Constitutional No insomnia 06/23/2017 Constitutional No malaise 06/23/2017 Eyes No blindness 06/23/2017 Eyes No vision change 06/23/2017 Ears/Nose/Throat/Neck No dizziness 06/23/2017 Ears/Nose/Throat/Neck No dysphagia 06/23/2017 Ears/Nose/Throat/Neck No headache 06/23/2017 Ears/Nose/Throat/Neck No hearing loss 06/23/2017 Ears/Nose/Throat/Neck No nasal allergies 06/23/2017 Ears/Nose/Throat/Neck No sore throat 06/23/2017 Ears/Nose/Throat/Neck No postnasal drip 06/23/2017 Ears/Nose/Throat/Neck No sinus congestion 06/23/2017 Cardiovascular No chest pain/pressure 06/23/2017 Cardiovascular No dyspnea 06/23/2017 Cardiovascular No edema 06/23/2017 Cardiovascular No exercise intolerance 06/23/2017 Cardiovascular No fatigue 06/23/2017 Cardiovascular No near-syncope/dizziness 06/23/2017 Cardiovascular No palpitations 06/23/2017 Respiratory No chest congestion 06/23/2017 Respiratory No chest tightness 06/23/2017 Respiratory No cough 06/23/2017 Respiratory No dyspnea 06/23/2017 Respiratory No pedal edema 06/23/2017 Gastrointestinal No abdominal pain 06/23/2017 Gastrointestinal No constipation 06/23/2017 Gastrointestinal No diarrhea 06/23/2017 Gastrointestinal No gastroesophageal reflux 06/23/2017 Gastrointestinal No nausea 06/23/2017 Gastrointestinal No vomiting 06/23/2017 Musculoskeletal stiffness 06/23/2017 Musculoskeletal No swelling 06/23/2017 Musculoskeletal arthralgia(s) 06/23/2017 Musculoskeletal No muscle weakness 06/23/2017 Musculoskeletal No myalgias 06/23/2017 Dermatologic rash 06/23/2017 Dermatologic sores 06/23/2017 Dermatologic No scar 06/23/2017 Neurologic No headache 06/23/2017 Neurologic No neck pain 06/23/2017 Neurologic No syncope 06/23/2017 Psychiatric No anxiety 06/23/2017 Psychiatric No depression 06/23/2017 Constitutional No recent illness 05/21/2017 Constitutional No chills 05/21/2017 Constitutional No fatigue 05/21/2017 Constitutional No fever 05/21/2017 Constitutional No insomnia 05/21/2017 Constitutional No malaise 05/21/2017 Eyes No blindness 05/21/2017 Eyes No vision change 05/21/2017 Ears/Nose/Throat/Neck No dental pain 05/21/2017 Ears/Nose/Throat/Neck No dizziness 05/21/2017 Ears/Nose/Throat/Neck No dysphagia 05/21/2017 Ears/Nose/Throat/Neck No headache 05/21/2017 Ears/Nose/Throat/Neck No hearing loss 05/21/2017 Ears/Nose/Throat/Neck No nasal allergies 05/21/2017 Ears/Nose/Throat/Neck No sore throat 05/21/2017 Ears/Nose/Throat/Neck No postnasal drip 05/21/2017 Ears/Nose/Throat/Neck No sinus congestion 05/21/2017 Cardiovascular No chest pain/pressure 05/21/2017 Cardiovascular No dyspnea 05/21/2017 Cardiovascular No edema 05/21/2017 Cardiovascular No exercise intolerance 05/21/2017 Cardiovascular No fatigue 05/21/2017 Cardiovascular No near-syncope/dizziness 05/21/2017 Cardiovascular No palpitations 05/21/2017 Respiratory No chest congestion 05/21/2017 Respiratory No chest tightness 05/21/2017 Respiratory No cough 05/21/2017 Respiratory No dyspnea 05/21/2017 Respiratory No pedal edema 05/21/2017 Gastrointestinal No abdominal pain 05/21/2017 Gastrointestinal No constipation 05/21/2017 Gastrointestinal No diarrhea 05/21/2017 Gastrointestinal No gastroesophageal reflux 05/21/2017 Gastrointestinal No nausea 05/21/2017 Gastrointestinal No vomiting 05/21/2017 Genitourinary/Nephrology No dysuria 05/21/2017 Genitourinary/Nephrology No nocturia 05/21/2017 Genitourinary/Nephrology No urinary incontinence 05/21/2017 Musculoskeletal stiffness 05/21/2017 Musculoskeletal No swelling 05/21/2017 Musculoskeletal arthralgia(s) 05/21/2017 Musculoskeletal No muscle weakness 05/21/2017 Musculoskeletal No myalgias 05/21/2017 Dermatologic rash 05/21/2017 Dermatologic sores 05/21/2017 Dermatologic No scar 05/21/2017 Neurologic No alteration of consciousness 05/21/2017 Neurologic No dizziness 05/21/2017 Neurologic No headache 05/21/2017 Neurologic No neck pain 05/21/2017 Neurologic No syncope 05/21/2017 Psychiatric No anxiety 05/21/2017 Psychiatric No depression 05/21/2017 Constitutional No recent illness 01/16/2017 Constitutional No chills 01/16/2017 Constitutional No fatigue 01/16/2017 Constitutional No fever 01/16/2017 Constitutional No insomnia 01/16/2017 Constitutional No malaise 01/16/2017 Eyes No blindness 01/16/2017 Eyes No vision change 01/16/2017 Ears/Nose/Throat/Neck No dental pain 01/16/2017 Ears/Nose/Throat/Neck No dizziness 01/16/2017 Ears/Nose/Throat/Neck No dysphagia 01/16/2017 Ears/Nose/Throat/Neck No headache 01/16/2017 Ears/Nose/Throat/Neck No hearing loss 01/16/2017 Ears/Nose/Throat/Neck No nasal allergies 01/16/2017 Ears/Nose/Throat/Neck No sore throat 01/16/2017 Ears/Nose/Throat/Neck No postnasal drip 01/16/2017 Ears/Nose/Throat/Neck No sinus congestion 01/16/2017 Cardiovascular No chest pain/pressure 01/16/2017 Cardiovascular No dyspnea 01/16/2017 Cardiovascular No edema 01/16/2017 Cardiovascular No exercise intolerance 01/16/2017 Cardiovascular No fatigue 01/16/2017 Cardiovascular No near-syncope/dizziness 01/16/2017 Cardiovascular No palpitations 01/16/2017 Respiratory No chest congestion 01/16/2017 Respiratory No chest tightness 01/16/2017 Respiratory No cough 01/16/2017 Respiratory No dyspnea 01/16/2017 Respiratory No pedal edema 01/16/2017 Gastrointestinal No abdominal pain 01/16/2017 Gastrointestinal No constipation 01/16/2017 Gastrointestinal No diarrhea 01/16/2017 Gastrointestinal No gastroesophageal reflux 01/16/2017 Gastrointestinal No nausea 01/16/2017 Gastrointestinal No vomiting 01/16/2017 Genitourinary/Nephrology No dysuria 01/16/2017 Genitourinary/Nephrology No nocturia 01/16/2017 Genitourinary/Nephrology No urinary incontinence 01/16/2017 Musculoskeletal stiffness 01/16/2017 Musculoskeletal No swelling 01/16/2017 Musculoskeletal arthralgia(s) 01/16/2017 Musculoskeletal No muscle weakness 01/16/2017 Musculoskeletal No myalgias 01/16/2017 Dermatologic rash 01/16/2017 Dermatologic sores 01/16/2017 Dermatologic No scar 01/16/2017 Neurologic No alteration of consciousness 01/16/2017 Neurologic No dizziness 01/16/2017 Neurologic No headache 01/16/2017 Neurologic No neck pain 01/16/2017 Neurologic No syncope 01/16/2017 Psychiatric No anxiety 01/16/2017 Psychiatric No depression 01/16/2017 Constitutional recent illness 08/27/2016 Constitutional fatigue 08/27/2016 Ears/Nose/Throat/Neck No facial pain 08/27/2016 Ears/Nose/Throat/Neck headache 08/27/2016 Ears/Nose/Throat/Neck nasal discharge 08/27/2016 Ears/Nose/Throat/Neck No sore throat 08/27/2016 Ears/Nose/Throat/Neck No sinusitis 08/27/2016 Cardiovascular No chest pain/pressure 08/27/2016 Cardiovascular dyspnea 08/27/2016 Cardiovascular No edema 08/27/2016 Cardiovascular No fatigue 08/27/2016 Cardiovascular No syncope 08/27/2016 Respiratory chest tightness 08/27/2016 Respiratory No cigarette smoking 08/27/2016 Respiratory cough 08/27/2016 Respiratory No dyspnea 08/27/2016 Respiratory wheezing 08/27/2016 Gastrointestinal No constipation 08/27/2016 Gastrointestinal No diarrhea 08/27/2016 Gastrointestinal No dyspepsia 08/27/2016 Gastrointestinal No nausea 08/27/2016 Musculoskeletal No muscle weakness 08/27/2016 Musculoskeletal No myalgias 08/27/2016 Dermatologic No rash 08/27/2016 Neurologic No ataxia 08/27/2016 Neurologic No dizziness 08/27/2016 Neurologic No pain, facial 08/27/2016 Psychiatric No anxiety 08/27/2016 Psychiatric No depression 08/27/2016 Constitutional No recent illness 05/30/2016 Constitutional No chills 05/30/2016 Constitutional No fatigue 05/30/2016 Constitutional No fever 05/30/2016 Constitutional No insomnia 05/30/2016 Constitutional No malaise 05/30/2016 Eyes No blindness 05/30/2016 Eyes No vision change 05/30/2016 Ears/Nose/Throat/Neck No dental pain 05/30/2016 Ears/Nose/Throat/Neck No dizziness 05/30/2016 Ears/Nose/Throat/Neck No dysphagia 05/30/2016 Ears/Nose/Throat/Neck No headache 05/30/2016 Ears/Nose/Throat/Neck No hearing loss 05/30/2016 Ears/Nose/Throat/Neck No nasal allergies 05/30/2016 Ears/Nose/Throat/Neck No sore throat 05/30/2016 Ears/Nose/Throat/Neck No postnasal drip 05/30/2016 Ears/Nose/Throat/Neck No sinus congestion 05/30/2016 Cardiovascular No chest pain/pressure 05/30/2016 Cardiovascular No dyspnea 05/30/2016 Cardiovascular No edema 05/30/2016 Cardiovascular No exercise intolerance 05/30/2016 Cardiovascular No fatigue 05/30/2016 Cardiovascular No near-syncope/dizziness 05/30/2016 Cardiovascular No palpitations 05/30/2016 Respiratory No chest congestion 05/30/2016 Respiratory No chest tightness 05/30/2016 Respiratory No cough 05/30/2016 Respiratory No dyspnea 05/30/2016 Respiratory No pedal edema 05/30/2016 Gastrointestinal No abdominal pain 05/30/2016 Gastrointestinal No constipation 05/30/2016 Gastrointestinal No diarrhea 05/30/2016 Gastrointestinal No gastroesophageal reflux 05/30/2016 Gastrointestinal No nausea 05/30/2016 Gastrointestinal No vomiting 05/30/2016 Genitourinary/Nephrology No dysuria 05/30/2016 Genitourinary/Nephrology No nocturia 05/30/2016 Genitourinary/Nephrology No urinary incontinence 05/30/2016 Musculoskeletal stiffness 05/30/2016 Musculoskeletal No swelling 05/30/2016 Musculoskeletal arthralgia(s) 05/30/2016 Musculoskeletal No muscle weakness 05/30/2016 Musculoskeletal No myalgias 05/30/2016 Dermatologic No rash 05/30/2016 Dermatologic No sores 05/30/2016 Dermatologic No scar 05/30/2016 Neurologic No alteration of consciousness 05/30/2016 Neurologic No dizziness 05/30/2016 Neurologic No headache 05/30/2016 Neurologic No neck pain 05/30/2016 Neurologic No syncope 05/30/2016 Psychiatric No anxiety 05/30/2016 Psychiatric No depression 05/30/2016 Constitutional No recent illness 04/19/2016 Constitutional No chills 04/19/2016 Constitutional fatigue 04/19/2016 Constitutional No fever 04/19/2016 Constitutional No insomnia 04/19/2016 Constitutional No malaise 04/19/2016 Eyes No blindness 04/19/2016 Eyes No vision change 04/19/2016 Ears/Nose/Throat/Neck No dental pain 04/19/2016 Ears/Nose/Throat/Neck No dizziness 04/19/2016 Ears/Nose/Throat/Neck No dysphagia 04/19/2016 Ears/Nose/Throat/Neck No headache 04/19/2016 Ears/Nose/Throat/Neck No hearing loss 04/19/2016 Ears/Nose/Throat/Neck No nasal allergies 04/19/2016 Ears/Nose/Throat/Neck No sore throat 04/19/2016 Ears/Nose/Throat/Neck No postnasal drip 04/19/2016 Ears/Nose/Throat/Neck No sinus congestion 04/19/2016 Cardiovascular No chest pain/pressure 04/19/2016 Cardiovascular No dyspnea 04/19/2016 Cardiovascular No edema 04/19/2016 Cardiovascular No exercise intolerance 04/19/2016 Cardiovascular No fatigue 04/19/2016 Cardiovascular No near-syncope/dizziness 04/19/2016 Cardiovascular No palpitations 04/19/2016 Respiratory No chest congestion 04/19/2016 Respiratory No chest tightness 04/19/2016 Respiratory No cough 04/19/2016 Respiratory No dyspnea 04/19/2016 Respiratory No pedal edema 04/19/2016 Gastrointestinal No abdominal pain 04/19/2016 Gastrointestinal No constipation 04/19/2016 Gastrointestinal No diarrhea 04/19/2016 Gastrointestinal No gastroesophageal reflux 04/19/2016 Gastrointestinal No nausea 04/19/2016 Gastrointestinal No vomiting 04/19/2016 Genitourinary/Nephrology No dysuria 04/19/2016 Genitourinary/Nephrology No nocturia 04/19/2016 Genitourinary/Nephrology No urinary incontinence 04/19/2016 Musculoskeletal stiffness 04/19/2016 Musculoskeletal No swelling 04/19/2016 Musculoskeletal arthralgia(s) 04/19/2016 Musculoskeletal No muscle weakness 04/19/2016 Musculoskeletal No myalgias 04/19/2016 Dermatologic No rash 04/19/2016 Dermatologic No sores 04/19/2016 Dermatologic No scar 04/19/2016 Neurologic No alteration of consciousness 04/19/2016 Neurologic No dizziness 04/19/2016 Neurologic No headache 04/19/2016 Neurologic No neck pain 04/19/2016 Neurologic No syncope 04/19/2016 Psychiatric No anxiety 04/19/2016 Psychiatric No depression 04/19/2016 Musculoskeletal joint complaint 04/19/2016 Constitutional No recent illness 01/03/2016 Constitutional No chills 01/03/2016 Constitutional No fatigue 01/03/2016 Constitutional No fever 01/03/2016 Constitutional No insomnia 01/03/2016 Constitutional No malaise 01/03/2016 Eyes No blindness 01/03/2016 Eyes No vision change 01/03/2016 Ears/Nose/Throat/Neck No dental pain 01/03/2016 Ears/Nose/Throat/Neck No dizziness 01/03/2016 Ears/Nose/Throat/Neck No dysphagia 01/03/2016 Ears/Nose/Throat/Neck No headache 01/03/2016 Ears/Nose/Throat/Neck No hearing loss 01/03/2016 Ears/Nose/Throat/Neck No nasal allergies 01/03/2016 Ears/Nose/Throat/Neck No sore throat 01/03/2016 Ears/Nose/Throat/Neck No postnasal drip 01/03/2016 Ears/Nose/Throat/Neck No sinus congestion 01/03/2016 Cardiovascular No chest pain/pressure 01/03/2016 Cardiovascular No dyspnea 01/03/2016 Cardiovascular No edema 01/03/2016 Cardiovascular No exercise intolerance 01/03/2016 Cardiovascular No fatigue 01/03/2016 Cardiovascular No near-syncope/dizziness 01/03/2016 Cardiovascular No palpitations 01/03/2016 Respiratory No chest congestion 01/03/2016 Respiratory No chest tightness 01/03/2016 Respiratory No cough 01/03/2016 Respiratory No dyspnea 01/03/2016 Respiratory No pedal edema 01/03/2016 Gastrointestinal No abdominal pain 01/03/2016 Gastrointestinal No constipation 01/03/2016 Gastrointestinal No diarrhea 01/03/2016 Gastrointestinal No gastroesophageal reflux 01/03/2016 Gastrointestinal No nausea 01/03/2016 Gastrointestinal No vomiting 01/03/2016 Genitourinary/Nephrology No dysuria 01/03/2016 Genitourinary/Nephrology No nocturia 01/03/2016 Genitourinary/Nephrology No urinary incontinence 01/03/2016 Musculoskeletal stiffness 01/03/2016 Musculoskeletal No swelling 01/03/2016 Musculoskeletal arthralgia(s) 01/03/2016 Musculoskeletal No muscle weakness 01/03/2016 Musculoskeletal No myalgias 01/03/2016 Dermatologic No rash 01/03/2016 Dermatologic No sores 01/03/2016 Dermatologic No scar 01/03/2016 Neurologic No alteration of consciousness 01/03/2016 Neurologic No dizziness 01/03/2016 Neurologic No headache 01/03/2016 Neurologic No neck pain 01/03/2016 Neurologic No syncope 01/03/2016 Psychiatric No anxiety 01/03/2016 Psychiatric No depression 01/03/2016 Constitutional No recent illness 10/03/2015 Constitutional No chills 10/03/2015 Constitutional No fatigue 10/03/2015 Constitutional No fever 10/03/2015 Constitutional No insomnia 10/03/2015 Constitutional No malaise 10/03/2015 Eyes No blindness 10/03/2015 Eyes No vision change 10/03/2015 Ears/Nose/Throat/Neck No dental pain 10/03/2015 Ears/Nose/Throat/Neck No dizziness 10/03/2015 Ears/Nose/Throat/Neck No dysphagia 10/03/2015 Ears/Nose/Throat/Neck No headache 10/03/2015 Ears/Nose/Throat/Neck No hearing loss 10/03/2015 Ears/Nose/Throat/Neck No nasal allergies 10/03/2015 Ears/Nose/Throat/Neck No sore throat 10/03/2015 Ears/Nose/Throat/Neck No postnasal drip 10/03/2015 Ears/Nose/Throat/Neck No sinus congestion 10/03/2015 Cardiovascular No chest pain/pressure 10/03/2015 Cardiovascular No dyspnea 10/03/2015 Cardiovascular No edema 10/03/2015 Cardiovascular No exercise intolerance 10/03/2015 Cardiovascular No fatigue 10/03/2015 Cardiovascular No near-syncope/dizziness 10/03/2015 Cardiovascular No palpitations 10/03/2015 Respiratory No chest congestion 10/03/2015 Respiratory No chest tightness 10/03/2015 Respiratory No cough 10/03/2015 Respiratory No dyspnea 10/03/2015 Respiratory No pedal edema 10/03/2015 Gastrointestinal No abdominal pain 10/03/2015 Gastrointestinal No constipation 10/03/2015 Gastrointestinal No diarrhea 10/03/2015 Gastrointestinal No gastroesophageal reflux 10/03/2015 Gastrointestinal No nausea 10/03/2015 Gastrointestinal No vomiting 10/03/2015 Genitourinary/Nephrology No dysuria 10/03/2015 Genitourinary/Nephrology No nocturia 10/03/2015 Genitourinary/Nephrology No urinary incontinence 10/03/2015 Musculoskeletal stiffness 10/03/2015 Musculoskeletal No swelling 10/03/2015 Musculoskeletal arthralgia(s) 10/03/2015 Musculoskeletal No muscle weakness 10/03/2015 Musculoskeletal No myalgias 10/03/2015 Dermatologic No rash 10/03/2015 Dermatologic No sores 10/03/2015 Dermatologic No scar 10/03/2015 Neurologic No alteration of consciousness 10/03/2015 Neurologic No dizziness 10/03/2015 Neurologic No headache 10/03/2015 Neurologic No neck pain 10/03/2015 Neurologic No syncope 10/03/2015 Psychiatric No anxiety 10/03/2015 Psychiatric No depression 10/03/2015 Constitutional No recent illness 05/25/2015 Constitutional No chills 05/25/2015 Constitutional No fatigue 05/25/2015 Constitutional No fever 05/25/2015 Constitutional No insomnia 05/25/2015 Constitutional No malaise 05/25/2015 Eyes No vision change 05/25/2015 Ears/Nose/Throat/Neck No headache 05/25/2015 Ears/Nose/Throat/Neck No nasal allergies 05/25/2015 Ears/Nose/Throat/Neck No sore throat 05/25/2015 Ears/Nose/Throat/Neck No postnasal drip 05/25/2015 Ears/Nose/Throat/Neck No sinus congestion 05/25/2015 Cardiovascular No chest pain/pressure 05/25/2015 Cardiovascular No dyspnea 05/25/2015 Cardiovascular No edema 05/25/2015 Respiratory No chest congestion 05/25/2015 Respiratory No cough 05/25/2015 Respiratory No dyspnea 05/25/2015 Gastrointestinal No abdominal pain 05/25/2015 Gastrointestinal No constipation 05/25/2015 Gastrointestinal No diarrhea 05/25/2015 Gastrointestinal No nausea 05/25/2015 Gastrointestinal No vomiting 05/25/2015 Musculoskeletal stiffness 05/25/2015 Musculoskeletal No swelling 05/25/2015 Musculoskeletal arthralgia(s) 05/25/2015 Musculoskeletal No muscle weakness 05/25/2015 Musculoskeletal No myalgias 05/25/2015 Dermatologic No rash 05/25/2015 Dermatologic No sores 05/25/2015 Dermatologic No scar 05/25/2015 Neurologic No alteration of consciousness 05/25/2015 Psychiatric No anxiety 05/25/2015 Psychiatric No depression 05/25/2015 Eyes No eye discharge 05/25/2015 Eyes No eye erythema 05/25/2015 Ears/Nose/Throat/Neck No nasal discharge 05/25/2015 Musculoskeletal joint complaint 05/25/2015 Constitutional No recent illness 04/03/2015 Constitutional No chills 04/03/2015 Constitutional No fatigue 04/03/2015 Constitutional No fever 04/03/2015 Constitutional No insomnia 04/03/2015 Constitutional No malaise 04/03/2015 Eyes No blindness 04/03/2015 Eyes No vision change 04/03/2015 Ears/Nose/Throat/Neck No dental pain 04/03/2015 Ears/Nose/Throat/Neck No dizziness 04/03/2015 Ears/Nose/Throat/Neck No dysphagia 04/03/2015 Ears/Nose/Throat/Neck No headache 04/03/2015 Ears/Nose/Throat/Neck No hearing loss 04/03/2015 Ears/Nose/Throat/Neck No nasal allergies 04/03/2015 Ears/Nose/Throat/Neck No sore throat 04/03/2015 Ears/Nose/Throat/Neck No postnasal drip 04/03/2015 Ears/Nose/Throat/Neck No sinus congestion 04/03/2015 Cardiovascular No chest pain/pressure 04/03/2015 Cardiovascular No dyspnea 04/03/2015 Cardiovascular No edema 04/03/2015 Cardiovascular No exercise intolerance 04/03/2015 Cardiovascular No fatigue 04/03/2015 Cardiovascular No near-syncope/dizziness 04/03/2015 Cardiovascular No palpitations 04/03/2015 Respiratory No chest congestion 04/03/2015 Respiratory No chest tightness 04/03/2015 Respiratory No cough 04/03/2015 Respiratory No dyspnea 04/03/2015 Respiratory No pedal edema 04/03/2015 Gastrointestinal No abdominal pain 04/03/2015 Gastrointestinal No constipation 04/03/2015 Gastrointestinal No diarrhea 04/03/2015 Gastrointestinal No gastroesophageal reflux 04/03/2015 Gastrointestinal No nausea 04/03/2015 Gastrointestinal No vomiting 04/03/2015 Genitourinary/Nephrology No dysuria 04/03/2015 Genitourinary/Nephrology No nocturia 04/03/2015 Genitourinary/Nephrology No urinary incontinence 04/03/2015 Musculoskeletal stiffness 04/03/2015 Musculoskeletal No swelling 04/03/2015 Musculoskeletal arthralgia(s) 04/03/2015 Musculoskeletal No muscle weakness 04/03/2015 Musculoskeletal No myalgias 04/03/2015 Dermatologic No rash 04/03/2015 Dermatologic No sores 04/03/2015 Dermatologic No scar 04/03/2015 Neurologic No alteration of consciousness 04/03/2015 Neurologic No dizziness 04/03/2015 Neurologic No headache 04/03/2015 Neurologic No neck pain 04/03/2015 Neurologic No syncope 04/03/2015 Psychiatric No anxiety 04/03/2015 Psychiatric No depression 04/03/2015 Dermatologic mole change 04/03/2015 Constitutional No recent illness 11/23/2014 Constitutional No chills 11/23/2014 Constitutional No fatigue 11/23/2014 Constitutional No fever 11/23/2014 Constitutional No insomnia 11/23/2014 Constitutional No malaise 11/23/2014 Eyes No blindness 11/23/2014 Eyes No vision change 11/23/2014 Ears/Nose/Throat/Neck No dental pain 11/23/2014 Ears/Nose/Throat/Neck No dizziness 11/23/2014 Ears/Nose/Throat/Neck No dysphagia 11/23/2014 Ears/Nose/Throat/Neck No headache 11/23/2014 Ears/Nose/Throat/Neck No hearing loss 11/23/2014 Ears/Nose/Throat/Neck No nasal allergies 11/23/2014 Ears/Nose/Throat/Neck No sore throat 11/23/2014 Ears/Nose/Throat/Neck No postnasal drip 11/23/2014 Ears/Nose/Throat/Neck No sinus congestion 11/23/2014 Cardiovascular No chest pain/pressure 11/23/2014 Cardiovascular No dyspnea 11/23/2014 Cardiovascular No edema 11/23/2014 Cardiovascular No exercise intolerance 11/23/2014 Cardiovascular No fatigue 11/23/2014 Cardiovascular No near-syncope/dizziness 11/23/2014 Respiratory No chest tightness 11/23/2014 Respiratory No cough 11/23/2014 Respiratory No dyspnea 11/23/2014 Respiratory No pedal edema 11/23/2014 Gastrointestinal No abdominal pain 11/23/2014 Gastrointestinal No constipation 11/23/2014 Gastrointestinal No diarrhea 11/23/2014 Gastrointestinal No gastroesophageal reflux 11/23/2014 Gastrointestinal No nausea 11/23/2014 Gastrointestinal No vomiting 11/23/2014 Genitourinary/Nephrology No dysuria 11/23/2014 Genitourinary/Nephrology No nocturia 11/23/2014 Genitourinary/Nephrology No urinary incontinence 11/23/2014 Musculoskeletal stiffness 11/23/2014 Musculoskeletal No swelling 11/23/2014 Musculoskeletal No muscle weakness 11/23/2014 Musculoskeletal No myalgias 11/23/2014 Dermatologic No rash 11/23/2014 Dermatologic No sores 11/23/2014 Dermatologic No scar 11/23/2014 Neurologic No dizziness 11/23/2014 Neurologic No headache 11/23/2014 Neurologic No neck pain 11/23/2014 Neurologic No syncope 11/23/2014 Psychiatric No anxiety 11/23/2014 Psychiatric No depression 11/23/2014 Cardiovascular No palpitations 11/23/2014 Respiratory No chest congestion 11/23/2014 Neurologic No alteration of consciousness 11/23/2014 Musculoskeletal arthralgia(s) 11/23/2014 Constitutional fatigue 09/20/2014 Constitutional recent illness 09/20/2014 Ears/Nose/Throat/Neck No facial pain 09/20/2014 Ears/Nose/Throat/Neck headache 09/20/2014 Ears/Nose/Throat/Neck nasal discharge 09/20/2014 Ears/Nose/Throat/Neck No sinusitis 09/20/2014 Ears/Nose/Throat/Neck No sore throat 09/20/2014 Cardiovascular No chest pain/pressure 09/20/2014 Cardiovascular dyspnea 09/20/2014 Cardiovascular No edema 09/20/2014 Cardiovascular No fatigue 09/20/2014 Cardiovascular No syncope 09/20/2014 Respiratory chest tightness 09/20/2014 Respiratory No cigarette smoking 09/20/2014 Respiratory cough 09/20/2014 Respiratory No dyspnea 09/20/2014 Respiratory wheezing 09/20/2014 Gastrointestinal No constipation 09/20/2014 Gastrointestinal No diarrhea 09/20/2014 Gastrointestinal No dyspepsia 09/20/2014 Gastrointestinal No nausea 09/20/2014 Musculoskeletal No muscle weakness 09/20/2014 Musculoskeletal No myalgias 09/20/2014 Dermatologic No rash 09/20/2014 Neurologic No ataxia 09/20/2014 Neurologic No dizziness 09/20/2014 Neurologic No pain, facial 09/20/2014 Psychiatric No anxiety 09/20/2014 Psychiatric No depression 09/20/2014 Physical Exam Exam Name System Name Item Name Status Result Effective Dates Notes Full Exam - General 1994 Constitutional general appearance Development: well developed 11/03/2018 None Full Exam - General 1994 Constitutional general appearance Development: appears stated age 0711/03/2018 None Full Exam - General 1994 Constitutional general appearance Hygiene/Attention to Grooming: good hygiene 11/03/2018 None Full Exam - General 1994 Eyes conjunctiva/eyelids Overall: conjunctiva clear 11/03/2018 None Full Exam - General 1994 Eyes conjunctiva/eyelids Overall: cornea clear 11/03/2018 None Full Exam - General 1994 Eyes conjunctiva/eyelids Overall: eyelids normal 11/03/2018 None Full Exam - General 1994 Eyes pupils and irises Overall: pupils equal, round, reactive to light and accomodation 11/03/2018 None Full Exam - General 1994 Ears/Nose/Throat lips/teeth/gingiva Overall: benign lips 11/03/2018 None Full Exam - General 1994 Ears/Nose/Throat lips/teeth/gingiva Overall: normal dentition 11/03/2018 None Full Exam - General 1994 Ears/Nose/Throat oral cavity/pharynx/larynx Overall: oral mucosa clear 11/03/2018 None Full Exam - General 1994 Ears/Nose/Throat oral cavity/pharynx/larynx Overall: oropharyngeal mucosa clear 11/03/2018 None Full Exam - General 1994 Ears/Nose/Throat oral cavity/pharynx/larynx Overall: hypopharynx benign 11/03/2018 None Full Exam - General 1994 Ears/Nose/Throat oral cavity/pharynx/larynx Overall: no masses 11/03/2018 None Full Exam - General 1994 Respiratory auscultation Overall: breath sounds clear bilaterally 11/03/2018 None Full Exam - General 1994 Respiratory respiratory effort/rhythm Overall: no retractions 11/03/2018 None Full Exam - General 1994 Respiratory respiratory effort/rhythm Overall: normal rate 11/03/2018 None Full Exam - General 1994 Cardiovascular extremities Overall: no clubbing 11/03/2018 None Full Exam - General 1994 Cardiovascular auscultation of heart Overall: regular rate 11/03/2018 None Full Exam - General 1994 Cardiovascular auscultation of heart Overall: normal heart sounds 11/03/2018 None Full Exam - General 1994 Abdomen abdominal exam Overall: no tenderness 11/03/2018 None Full Exam - General 1994 Abdomen abdominal exam Overall: normal bowel sounds 11/03/2018 None Full Exam - General 1994 Musculoskeletal spine, ribs and pelvis Overall: spine benign 11/03/2018 None Full Exam - General 1994 Musculoskeletal spine, ribs and pelvis Overall: sacroiliac joint benign 11/03/2018 None Full Exam - General 1994 Musculoskeletal spine, ribs and pelvis Overall: good posture 11/03/2018 None Full Exam - General 1994 Musculoskeletal head and neck Overall: head atraumatic 11/03/2018 None Full Exam - General 1994 Musculoskeletal head and neck Overall: cervical spine benign 11/03/2018 None Full Exam - General 1994 Integument inspection of skin Rash/Lesions: ulceration 11/03/2018 on arms, legs, hands - excorations/ulcerations Full Exam - General 1994 Neurologic deep tendon reflexes Overall: deep tendon reflexes intact 11/03/2018 None Full Exam - General 1994 Neurologic cranial nerves Overall: crainial nerves 2 - 12 grossly intact 11/03/2018 None Full Exam - General 1994 Psychiatric orientation/consciousness Overall: oriented to person, place and time 11/03/2018 None Full Exam - General 1994 Psychiatric mood and affect Overall: normal mood and affect 11/03/2018 None Full Exam - General 1994 Constitutional general appearance Development: well developed 06/22/2018 None Full Exam - General 1994 Constitutional general appearance Development: appears stated age 0206/22/2018 None Full Exam - General 1994 Constitutional general appearance Hygiene/Attention to Grooming: good hygiene 06/22/2018 None Full Exam - General 1994 Eyes conjunctiva/eyelids Overall: conjunctiva clear 06/22/2018 None Full Exam - General 1994 Eyes conjunctiva/eyelids Overall: cornea clear 06/22/2018 None Full Exam - General 1994 Eyes conjunctiva/eyelids Overall: eyelids normal 06/22/2018 None Full Exam [...] None Full Exam - General 1994 Eyes conjunctiva/eyelids Overall: conjunctiva clear 02/18/2018 None Full Exam - General 1994 Eyes conjunctiva/eyelids Overall: cornea clear 02/18/2018 None Full Exam - General 1994 Eyes conjunctiva/eyelids Overall: eyelids normal 02/18/2018 None Full Exam [...] None Full Exam - General 1994 Eyes conjunctiva/eyelids Overall: conjunctiva clear 10/06/2017 None Full Exam - General 1994 Eyes conjunctiva/eyelids Overall: cornea clear 10/06/2017 None Full Exam - General 1994 Eyes conjunctiva/eyelids Overall: eyelids normal 10/06/2017 None Full Exam [...] None Full Exam - General 1994 Eyes conjunctiva/eyelids Overall: conjunctiva clear 06/23/2017 None Full Exam - General 1994 Eyes conjunctiva/eyelids Overall: cornea clear 06/23/2017 None Full Exam - General 1994 Eyes conjunctiva/eyelids Overall: eyelids normal 06/23/2017 None Full Exam [...] None Full Exam - General 1994 Eyes conjunctiva/eyelids Overall: conjunctiva clear 05/21/2017 None Full Exam - General 1994 Eyes conjunctiva/eyelids Overall: cornea clear 05/21/2017 None Full Exam - General 1994 Eyes conjunctiva/eyelids Overall: eyelids normal 05/21/2017 None Full Exam [...] None Full Exam - General 1994 Eyes conjunctiva/eyelids Overall: conjunctiva clear 01/16/2017 None Full Exam - General 1994 Eyes conjunctiva/eyelids Overall: cornea clear 01/16/2017 None Full Exam - General 1994 Eyes conjunctiva/eyelids Overall: eyelids normal 01/16/2017 None Full Exam [...] None Full Exam - General 1994 Eyes conjunctiva/eyelids Overall: conjunctiva clear 08/27/2016 None Full Exam - General 1994 Eyes conjunctiva/eyelids Overall: cornea clear 08/27/2016 None Full Exam - General 1994 Eyes conjunctiva/eyelids Overall: eyelids normal 08/27/2016 None Full Exam [...] None Full Exam - General 1994 Eyes conjunctiva/eyelids Overall: conjunctiva clear 05/30/2016 None Full Exam - General 1994 Eyes conjunctiva/eyelids Overall: cornea clear 05/30/2016 None Full Exam - General 1994 Eyes conjunctiva/eyelids Overall: eyelids normal 05/30/2016 None Full Exam [...] None Full Exam - General 1994 Eyes conjunctiva/eyelids Overall: conjunctiva clear 04/19/2016 None Full Exam - General 1994 Eyes conjunctiva/eyelids Overall: cornea clear 04/19/2016 None Full Exam - General 1994 Eyes conjunctiva/eyelids Overall: eyelids normal 04/19/2016 None Full Exam [...] None Full Exam - General 1994 Eyes conjunctiva/eyelids Overall: conjunctiva clear 01/03/2016 None Full Exam - General 1994 Eyes conjunctiva/eyelids Overall: cornea clear 01/03/2016 None Full Exam - General 1994 Eyes conjunctiva/eyelids Overall: eyelids normal 01/03/2016 None Full Exam [...] None Full Exam - General 1994 Eyes conjunctiva/eyelids Overall: conjunctiva clear 10/03/2015 None Full Exam - General 1994 Eyes conjunctiva/eyelids Overall: cornea clear 10/03/2015 None Full Exam - General 1994 Eyes conjunctiva/eyelids Overall: eyelids normal 10/03/2015 None Full Exam [...] None Full Exam - General 1994 Eyes conjunctiva/eyelids Overall: conjunctiva clear 05/25/2015 None Full Exam - General 1994 Eyes conjunctiva/eyelids Overall: cornea clear 05/25/2015 None Full Exam - General 1994 Eyes conjunctiva/eyelids Overall: eyelids normal 05/25/2015 None Full Exam [...] None Full Exam - General 1994 Eyes conjunctiva/eyelids Overall: conjunctiva clear 04/03/2015 None Full Exam - General 1994 Eyes conjunctiva/eyelids Overall: cornea clear 04/03/2015 None Full Exam - General 1994 Eyes conjunctiva/eyelids Overall: eyelids normal 04/03/2015 None Full Exam [...] None Full Exam - General 1994 Eyes conjunctiva/eyelids Overall: conjunctiva clear 11/23/2014 None Full Exam - General 1994 Eyes conjunctiva/eyelids Overall: cornea clear 11/23/2014 None Full Exam - General 1994 Eyes conjunctiva/eyelids Overall: eyelids normal 11/23/2014 None Full Exam [...] None Full Exam - General 1994 Eyes conjunctiva/eyelids Overall: conjunctiva clear 09/20/2014 None Full Exam - General 1994 Eyes conjunctiva/eyelids Overall: cornea clear 09/20/2014 None Full Exam - General 1994 Eyes conjunctiva/eyelids Overall: eyelids normal 09/20/2014 None Full Exam [...] Procedure Codes Date ROCEPHIN, PER 250 MG CPT- 4: J0696 08/27/2016 DRAIN/INJECT JOINT/BURSA CPT-4: 67620 05/25/2015 TRIAMCINOLONE ACET INJ NOS CPT-4: J3301 05/25/2015 TRIAMCINOLONE ACET INJ NOS CPT-4: J3301 09/20/2014 ROCEPHIN, PER 250 MG CPT- 4: J0696 09/20/2014 THER/PROPH/DIAG INJ SC/IM CPT-4: 23030 09/20/2014 Vital Signs Date Vital 11/03/2018 Blood Pressure 1: 124/68 Code: 8480-6 BMI: 29.7 Code: 46452-3 Heart Rate 1: 57 bpm Height: 5'9" SpO2: 98% Weight: 201 lbs 06/22/2018 Blood Pressure 1: 142/68 Code: 8480-6 BMI: 30.9 Code: 97459-9 Heart Rate 1: 57 bpm Height: 5'9" SpO2: 95% Weight: 209 lbs 02/18/2018 Blood Pressure 1: 128/72 Code: 8480-6 BMI: 31.5 Code: 59494-7 Heart Rate 1: 68 bpm Height: 5'9" SpO2: 97% Weight: 213 lbs 10/06/2017 Blood Pressure 1: 134/70 Code: 8480-6 BMI: 31.5 Code: 14549-2 Heart Rate 1: 65 bpm Height: 5'9" SpO2: 97% Weight: 213 lbs 06/23/2017 Blood Pressure 1: 136/72 Code: 8480-6 BMI: 31.5 Code: 42912-5 Heart Rate 1: 64 bpm Height: 5'9" SpO2: 93% Weight: 213 lbs 05/21/2017 Blood Pressure 1: 118/80 Code: 8480-6 BMI: 32.2 Code: 13181-8 Heart Rate 1: 76 bpm Height: 5'9" SpO2: 98% Weight: 218 lbs 01/16/2017 Blood Pressure 1: 132/78 Code: 8480-6 BMI: 31.0 Code: 90261-0 Heart Rate 1: 63 bpm Height: 5'9" SpO2: 98% Weight: 210 lbs 08/27/2016 Blood Pressure 1: 128/72 Code: 8480-6 BMI: 30.4 Code: 23904-3 Heart Rate 1: 69 bpm Height: 5'9" SpO2: 95% Temperature: 37.1 (C) / 98.7 (F) Weight: 206 lbs 05/30/2016 Blood Pressure 1: 136/64 Code: 8480-6 BMI: 30.7 Code: 74608-9 Heart Rate 1: 77 bpm Height: 5'9" SpO2: 94% Weight: 208 lbs 04/19/2016 Blood Pressure 1: 108/68 Code: 8480-6 BMI: 28.8 Code: 17168-6 Height: 5'9" SpO2: 97% Weight: 195 lbs 01/03/2016 Blood Pressure 1: 120/70 Code: 8480-6 BMI: 31.0 Code: 07698-0 Heart Rate 1: 81 bpm Height: 5'9" SpO2: 98% Weight: 210 lbs 10/03/2015 Blood Pressure 1: 128/68 Code: 8480-6 BMI: 31.7 Code: 56794-7 Heart Rate 1: 60 bpm Height: 5'9" SpO2: 97% Weight: 215 lbs 05/25/2015 Blood Pressure 1: 138/84 Code: 8480-6 BMI: 32.6 Code: 92041-5 Heart Rate 1: 60 bpm Height: 5'9" SpO2: 96% Weight: 221 lbs 04/03/2015 Blood Pressure 1: 142/74 Code: 8480-6 Blood Pressure 1: 136/70 Code: 8480-6 BMI: 32.5 Code: 64698-5 Heart Rate 1: 59 bpm Height: 5'9" SpO2: 94% Weight: 220 lbs 11/23/2014 Blood Pressure 1: 138/72 Code: 8480-6 BMI: 32.0 Code: 18953-9 Heart Rate 1: 61 bpm Height: 5'9" SpO2: 94% Weight: 217 lbs 09/20/2014 Blood Pressure 1: 130/72 Code: 8480-6 Heart Rate 1: 84 bpm SpO2: 98% Weight: 228 lbs Functional Status No Functional Status data History of Present Illness Symptom Name Status Result Effective Date Notes Quality chronic 11/03/2018 None Quality primary hypertension 11/03/2018 None Onset and Resolution ongoing 11/03/2018 None Onset of Symptom during adulthood 11/03/2018 None Blood Pressure Values not checking blood pressure at home 11/03/2018 None Alleviating Factors medication 11/03/2018 None Pertinent Findings Denies dizziness 11/03/2018 None Pertinent Findings Denies dyspnea 11/03/2018 None Pertinent Findings edema 11/03/2018 in the right knee Onset and Resolution gradual in onset 11/03/2018 None Onset of Symptom during adulthood 11/03/2018 None Alleviating Factors medication 11/03/2018 None Exacerbating Factors diet 11/03/2018 None Onset of Symptom onset as an adult 11/03/2018 None Quality non-insulin dependent 11/03/2018 None Quality chronic 11/03/2018 None Alleviating Factors diet only 11/03/2018 None Exacerbating Factors diet 11/03/2018 None Glucose monitoring does not test 11/03/2018 None Quality chronic 06/22/2018 None Quality primary hypertension 06/22/2018 None Onset [...] Quality non-insulin dependent 06/22/2018 None Quality chronic 06/22/2018 None Alleviating Factors diet only 06/22/2018 None Exacerbating Factors diet 06/22/2018 None Test results Pt not checking blood glucose readings at home 06/22/2018 None Location on both sides 06/22/2018 None Quality chronic 06/22/2018 None Quality aching 06/22/2018 None Quality worsening 06/22/2018 None Frequency of Episodes increasing 06/22/2018 None [...] Quality recurrent 10/06/2017 None sores Quality dry 10/06/2017 None sores Quality pruritic 10/06/2017 None sores [...] Quality recurrent 06/23/2017 None sores Quality dry 06/23/2017 None sores Quality pruritic 06/23/2017 None sores [...] Quality recurrent 05/21/2017 None sores Quality dry 05/21/2017 None sores Quality pruritic 05/21/2017 None sores [...] Quality recurrent 01/16/2017 None sores Quality dry 01/16/2017 None sores Quality pruritic 01/16/2017 None sores Color red 01/16/2017 None sores Onset and Resolution ongoing 01/16/2017 [...] weight bearing 08/27/2016 None cough Quality acute 08/27/2016 None cough Quality intermittent 08/27/2016 None cough [...] activities 10/03/2015 None knee pain Significant Medications NSAID's 10/03/2015 pt is using Voltaren gel topically [...] activities 04/03/2015 None knee pain Significant Medications NSAID's 04/03/2015 pt is using Voltaren gel topically [...] checking blood pressure - see scanned document 11/23/2014 None blood pressure followup Frequency of Episodes [...] data Encounters Encounter Performer Location Codes Date ([id number]) [id number] EST. PATIENT, LEVEL IV Diagnosis: Essential (primary) hypertension[ICD10: I10] Diagnosis: Type 2 diabetes mellitus without complications[ICD10: E11.9] Diagnosis: Changes in skin texture[ICD10: R23.4] Andreina Hoffmann MD, [facility] CPT-4: 28022 11/03/2018 ([id number]) [id number] EST. 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 PATIENT, LEVEL IV Diagnosis: Type 2 diabetes mellitus without complications[ICD10: E11.9] Diagnosis: Essential (primary) hypertension[ICD10: I10] Diagnosis: Mixed hyperlipidemia[ICD10: E78.2] Andreina Hoffmann MD, [facility] CPT- 4: 90013 02/18/2018 ([id number]) [id number] EST. PATIENT, LEVEL IV Diagnosis: Essential (primary) hypertension[ICD10: I10] Diagnosis: Type 2 diabetes mellitus without complications[ICD10: E11.9] Diagnosis: Mixed hyperlipidemia[ICD10: E78.2] Andreina Hoffmann MD, [facility] CPT- 4: 18007 10/06/2017 ([id number]) [id number] EST. PATIENT, LEVEL III Diagnosis: Rash and other nonspecific skin eruption[ICD10: R21] Andreina Hoffmann MD [facility] CPT-4: 33453 06/23/2017 ([id number]) [id number] EST. PATIENT, LEVEL IV Diagnosis: Essential (primary) hypertension[ICD10: I10] Diagnosis: Other abnormal glucose[ICD10: R73.09] Diagnosis: Rash and other nonspecific skin eruption[ICD10: R21] Diagnosis: Pain in right knee[ICD10: M25.561] Diagnosis: Impaired fasting glucose[ICD10: R73.01] Andreina Hoffmann MD, [facility] CPT-4: 05445 05/21/2017 ([id number]) [id number] EST. PATIENT, LEVEL IV Diagnosis: Essential (primary) hypertension[ICD10: I10] Diagnosis: Pain in right knee[ICD10: M25.561] Diagnosis: Rash and other nonspecific skin eruption[ICD10: R21] Diagnosis: Other abnormal glucose[ICD10: R73.09] Diagnosis: Mixed hyperlipidemia[ICD10: E78.2] Andreina Hoffmann MD, [facility] CPT- 4: 95399 01/16/2017 ([id number]) [id number] EST. PATIENT, LEVEL IV Diagnosis: Essential (primary) hypertension[ICD10: I10] Diagnosis: Acute recurrent maxillary sinusitis[ICD10: J01.01] Andreina Hoffmann MD, [facility] CPT-4: 17571 08/27/2016 ([id number]) [id number] EST. PATIENT, LEVEL IV Diagnosis: Essential (primary) hypertension[ICD10: I10] Diagnosis: Pain in right knee[ICD10: M25.561] Diagnosis: Pain in left knee[ICD10: M25.562] Andreina Hoffmann MD, [facility] CPT- 4: 49704 05/30/2016 ([id number]) [id number] EST. PATIENT, LEVEL III Diagnosis: Essential (primary) hypertension[ICD10: I10] Diagnosis: Pain in right knee[ICD10: M25.561] Gisel Hoffmann MD, [facility] CPT- 4: 29860 04/19/2016 ([id number]) [id number] EST. PATIENT, LEVEL IV Diagnosis: Essential (primary) hypertension[ICD10: I10] Diagnosis: Mixed hyperlipidemia[ICD10: E78.2] Diagnosis: Pain in right knee[ICD10: M25.561] Andreina Hoffmann MD, [facility] CPT- 4: 04355 01/03/2016 ([id number]) 56974 EST. PATIENT, LEVEL IV Diagnosis: Essential (primary) hypertension[ICD10: I10] Diagnosis: Mixed hyperlipidemia[ICD10: E78.2] Diagnosis: Hyperglycemia, unspecified[ICD10: R73.9] Andreina Hoffmann MD, [facility] CPT-4: 99988 10/03/2015 [id number] EST. PATIENT, LEVEL IV Diagnosis: Pain in right knee[ICD10: M25.561] Tiffany Hoffmann MD, [facility] CPT-4: 62026 05/25/2015 ([id number]) [id number] EST. PATIENT, LEVEL III Diagnosis: Essential (primary) hypertension[ICD10: I10] Diagnosis: Changes in skin texture[ICD10: R23.4] [facility] CPT-4: 65304 04/03/2015 ([id number]) 52785 EST. PATIENT, LEVEL IV Diagnosis: ESSENTIAL HYPERTENSION[ICD9: 401.9] Diagnosis: DIABETES TYPE II[ICD9: 250.00] Diagnosis: HYPERLIPIDEMIA[ICD9: 272.4] Diagnosis: OSTEOARTH NOS-UNSPEC[ICD9: 715.90] [facility] CPT- 4: 40739 11/23/2014 ([id number]) OFFICE VISIT, NEW - LEVEL 3 Diagnosis: ACUTE BRONCHITIS[ICD9: 466.0] Diagnosis: Dyspnea[ICD9: 786.09] Diagnosis: Sinusitis[ICD9: 473.9] Diagnosis: ACUTE MAXILLARY SINUSITIS[ICD9: 461.0] [facility] CPT-4: 08339 09/20/2014 Plan of Care Planned Activity Notes [...] rx for mupirocin on arms and legs. Pt needs to use lotion on legs to keep himself from scratching his legs. Advised pt to stop picking/scratching at the [...] readings are starting to become less controlled. 11/03/2018 Patient Education: Patient Medication Summary Completed 11/03/2018 Patient Education: Diabetes Completed 11/03/2018 Appointment: Andreina Hoffmann WPtel: [address] [place], [place] [id number] (15 min) Moderate 10/26/2018 Appointment: Andreina Hoffmann WPtel: [address] [place], [place] [id number] Same Day appointments 09/23/2018 Visit Plan: Hypertension - well controlled - [...] his back. 06/22/2018 Appointment: [facility] ([facility]) Moderate 06/22/2018 Patient Education: Patient [...] and to assure normal liver response to me dications. 02/18/2018 Visit Plan: Hypertension - well controlled [...] and to assure normal liver response to me dications. 02/18/2018 App[facility]ment: [facility] [phone] [facility] ([facility] min) Moderate 02/18/2018 Patient Education: Patient Medication Summary Completed 02/18/2018 Patient Education: Diabetes Completed 02/18/2018 App[facility]ment: [facility] [phone] [facility] (15 min) Moderate 02/09/2018 Visit Plan: [...] and to assure normal liver response to me dications. 10/06/2017 Appointment: Andreina Hoffmann WPtel: [phone] [facility] (15 min) Moderate 10/06/2017 Patient Education: [...] improved. 06/23/2017 Appointment: Andreina Hoffmann WPtel: [phone] [facility] (15 min) Moderate 06/23/2017 Patient Education: Patient Medication Summary Completed 06/23/2017 Appointment: Andreina Hoffmann WPtel: [phone] [facility] (15 min) Moderate 06/10/2017 Visit Plan: [...] provided today. 05/21/2017 Appointment: [facility] [phone] [facility] [place] (15 min) Moderate 05/21/2017 Patient Education: [...] not improved. Hyperlipidemia - pt has been counsele d about appropriate diet, exercise, and need for [...] provided today. 01/16/2017 Appointment: [facility] [phone] [facility] [place] (15 min) Moderate 01/16/2017 Patient Education: Patient Medication Summary Completed 01/16/2017 Appointment: [facility] [phone] [facility] [place] (15 min) Moderate 12/30/2016 Visit [...] avila - 08/27/2016 Appointment: Andreina Hoffmann WPtel: [address] [place], [place] [address] (15 min) Moderate 08/27/2016 Patient Education: Patient [...] oxycodone 05/30/2016 Appointment: Andreina Hoffmann WPtel: [phone] [facility] (15 min) Moderate 05/30/2016 Patient Education: Patient Medication Summary Completed 05/30/2016 Patient Education: Obesity Completed 05/30/2016 Appointment: Gisel Titus WPtel: [phone] (30 [...] Dr Galdamez-on IV abx-sees infection control at [facility] 04/19/2016 Appointment: Gisel Titus WPtel: [phone] [place] (30 min) Complex 04/19/2016 Patient Education: Patient Medication Summary Completed 04/19/2016 Patient Education: Hypertension Completed 04/19/2016 Appointment: Andreina Hoffmann WPtel: [facility] (15 min) Moderate 04/03/2016 Visit Plan: [...] Medication Summary Completed 05/25/2015 Referral: Demetrius Cedeno WPtel:[phone] Referral Completed 04/19/2015 Visit Plan: Hypertension - [...] surgeons. 04/03/2015 Appointment: [facility] [phone] [facility] (15 min) Moderate 04/03/2015 Patient Education: Patient Medication Summary Completed 04/03/2015 Patient Education: Hypertension Completed 04/03/2015 Care Plan: Referral Order SNOMED-CT : [id number] Ordered 04/03/2015 Visit Plan: Hypertension - well [...] glucose readings are starting to become less con trolled. OA - RX for voltaren gel sent for patient to his pharmacy - he has also been instructed to have labs - fasting labs. 11/23/2014 Appointment: Andreina Hoffmann [facility]Ptel: [facility] [place] ([place] New Patient 11/23/2014 Patient [...] if symptoms acutely worsen. rocephin shot - [id number] exp 12/03/14 1ML 500mg apotec kenalog [id number] exp may 2016bristol fagan squibb 09/20/2014 Patient Education: Patient Medication Summary Completed 09/20/2014 Referral: Demetrius Cedeno WPtel:[phone] Referral Appointment Requested Instructions Comment Dr. Cedeno [...] Dr Galdamez-on IV abx-sees infection control at [facility] . Hypertension - well controlled - continue [...] rx for mupirocin on arms and legs. Pt needs to use lotion on legs to keep himself from scratching his legs. Advised pt to stop picking/scratching at the [...] readings are starting to become less controlled. . Hypertension - well controlled - continue [...] if symptoms acutely worsen. rocephin shot - [id number] exp 12/03/14 1ML 500mg apotec kenalog [id number] exp may [facility] squibb coconut oil start taking a probiotic - like [employer] or [employer] - this will help to decrease [...]
[2018-11-11 00:59] LABS: BILIRUBIN,URINE NEGATIVE (NEGATIVE); CLARITY,URINE CLEAR; COLOR,URINE YELLOW; GLUCOSE, URINE (UA) NEGATIVE (NEGATIVE); KETONES,URINE NEGATIVE (NEGATIVE); LEUKOCYTE ESTERASE ,URINE 1+ (NEGATIVE); NITRITE,URINE NEGATIVE (NEGATIVE); PH,URINE 6 (5-9); PROTEIN,URINE 2+ (NEGATIVE); UROBILINOGEN,URINE 1 MG/DL (NORMAL)
[2018-11-11 01:08] LABS: BACTERIA,URINE FEW /HPF; RBC,URINE 50-100 /HPF; SQUAMOUS EPITHELIAL CELL,UR RARE /HPF; WBC,URINE 0-2 /HPF
[2018-11-11 01:10] LABS: BASOPHILS # (AUTO) 0.1 10^3/uL (0.0-0.1); BASOPHILS % (AUTO) 1 % (0-10); EOSINOPHILS # (AUTO) 0.5 10^3/uL (0.0-0.3); EOSINOPHILS % (AUTO) 6 % (0-10); HEMATOCRIT 43 % (40-54); HEMOGLOBIN 14.3 G/DL (13.3-17.7); LYMPHOCYTES # (AUTO) 1.9 X 10^3 (1.0-4.0); LYMPHOCYTES % (AUTO) 22 % (12-44); MEAN CORPUSCULAR HEMOGLOBIN 30 PG (25-34); MEAN CORPUSCULAR HGB CONC 33 G/DL (32-36); MEAN CORPUSCULAR VOLUME 92 FL (80-99); MEAN PLATELET VOLUME 10.8 FL (7.4-10.4); MONOCYTES # (AUTO) 0.7 X 10^3 (0.0-1.0); MONOCYTES % (AUTO) 9 % (0-12); NEUTROPHILS # (AUTO) 5.2 X 10^3 (1.8-7.8); NEUTROPHILS % (AUTO) 62 % (42-75); PLATELET COUNT 240 10^3/uL (130-400); RED CELL DISTRIBUTION WIDTH 13.1 % (10.0-14.5); WHITE BLOOD COUNT 8.4 10^3/uL (4.3-11.0)
[2018-11-11] MEDS ORDERED: NS IV 1000 ML 1,000 ML IV ONE (01:14)
[2018-11-11] MEDS ORDERED: KETOROLAC 30 MG/ML VIAL IVP ONE (01:15)
--- OUTSIDE RECORDS SUMMARY | 2018-11-11 01:19 | XMS REPORT | Continuity of Care Document ---
Author Organization Unknown Address Unknown Allergies Active Description Code Type Severity Reaction Onset Reported/Identified Relationship to Patient Clinical Status Yes No Known Drug Allergies [id number] Drug Allergy Unknown N/A 01/28/2017 Medications There [...] NOS 10/19/2010 Ot 414.01 CORONARY ATHEROSCLEROSIS OF [place] CORON 10/19/2010 Ot 594.2 URETHRAL CALCULUS 10/19/2010 [...] CHEST SOUNDS 10/03/2015 DEVEN CANELA MD Ot C66.84 EXAM PRE-OPERATIVE NOS 10/03/2015 ZEYAD OWUSU Ot [...] CHEST SOUNDS 10/19/2015 DEVEN CANELA MD Ot P03.84 EXAM PRE-OPERATIVE NOS 10/19/2015 ZEYAD OWUSU Ot [...] OWUSU Ot 401.9 HYPERTENSION NOS 11/22/2015 ZEYAD OWUSU Ot 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84 EXAM PRE-OPERATIVE NOS 04/05/2016 ZYEAD OWUSU Ot 272.4 HYPERLIPIDEMIA NEC/NOS 04/05/2016 ZEYAD [...] MD Ot I25.10 ATHSCL HEART DISEASE OF [place] CORONARY 04/12/2016 KEN MTZ MD Ot Z23 [...] OTHER BACTERIA, RIGHT K 04/24/2016 SYED SIERRA, [facility] A Ot Z96.651 PRESENCE OF RIGHT ARTIFICIAL [...] 05/09/2016 Ot 786.2 COUGH 05/09/2016 SYED SIERRA, [facility] A Ot M00.861 ARTHRITIS DUE TO OTHER BACTERIA, RIGHT K 05/09/2016 SYED SIERRA, [facility] A Ot Z96.651 PRESENCE OF RIGHT ARTIFICIAL [...] RIGHT ARTIFICIAL KNEE JOINT 05/12/2016 KARISHMA EARLY SPECIAL DAY CLASS TEACHER-C Ot Z47.1 AFTERCARE FOLLOWING JOINT REPLACEMENT CARRION 05/12/2016 KARISHMA EARLY SPECIAL DAY CLASS TEACHER-C Ot Z96.651 PRESENCE OF RIGHT ARTIFICIAL KNEE [...] RIGHT ARTIFICIAL KNEE JOINT 05/13/2016 [facility]AST[facility] [employer] TEACHER-C Ot Z47.1 AFTERCARE FOLLOWING JOINT REPLACEMENT CARRION 05/13/2016 EASTERKARISHMA SPECIAL DAY CLASS TEACHER-C Ot Z96.651 PRESENCE OF RIGHT ARTIFICIAL KNEE JOINT 05/13/2016 [facility] [employer] TEACHER-C Ot Z47.1 AFTERCARE FOLLOWING JOINT REPLACEMENT CARRION 05/13/2016 [facility] [employer] [employer] DAY CLASS TEACHER-C Ot Z96.651 PRESENCE OF RIGHT ARTIFICIAL KNEE [...] RIGHT ARTIFICIAL KNEE JOINT 05/20/2016 KARISHMA EARLY SPECIAL DAY CLASS TEACHER-C Ot Z47.1 AFTERCARE FOLLOWING JOINT REPLACEMENT CARRION 05/20/2016 [facility] [employer] [employer] TEACHER-C Ot Z96.651 PRESENCE OF RIGHT ARTIFICIAL KNEE JOINT 06/19/2016 [facility] [employer] DAY CLASS TEACHER-C Ot Z47.1 AFTERCARE FOLLOWING JOINT REPLACEMENT CARRION 06/19/2016 [employer] [employer] DAY [employer] TEACHER-C Ot Z96.651 PRESENCE OF RIGHT ARTIFICIAL KNEE [...] RIGHT ARTIFICIAL KNEE JOINT 06/19/2016 KARISHMA EARLY SPECIAL DAY CLASS TEACHER-C Ot Z47.1 AFTERCARE FOLLOWING JOINT REPLACEMENT CARRION 06/19/2016 KARISHMA EARLY SPECIAL DAY CLASS TEACHER-C Ot Z96.651 PRESENCE OF RIGHT ARTIFICIAL KNEE JOINT 07/10/2016 KARISHMA EARLY SPECIAL DAY CLASS TEACHER-C Ot Z47.1 AFTERCARE FOLLOWING JOINT REPLACEMENT CARRION 07/10/2016 KARISHMA EARLY SPECIAL DAY CLASS TEACHER-C Ot Z96.651 PRESENCE OF RIGHT ARTIFICIAL KNEE JOINT 01/22/2017 REDDY DO, VI K Ot E78.00 PURE HYPERCHOLESTEROLEMIA, UNSPECIFIED 01/22/2017 REDDY DO, VI K Ot I10 ESSENTIAL (PRIMARY) HYPERTENSION 01/22/2017 REDDY DO VI K Ot N20.1 CALCULUS OF URETER 01/22/2017 REDDY DO VI K Ot R10.32 LEFT LOWER QUADRANT PAIN 01/22/2017 REDDY DO VI K Ot Z79.82 JAIL (CURRENT) USE OF ASPIRIN 01/22/2017 REDDY DO VI K Ot Z87.19 PERSONAL HISTORY OF OTHER DISEASES OF 01/22/2017 REDDY DO VI K Ot Z87.438 PERSONAL HISTORY OF OTHER DISEASES OF [place] 01/22/2017 REDDY DO VI K Ot Z87.891 [...] 01/23/2017 REDDY DO VI K Ot Z79.82 JAIL (CURRENT) USE OF ASPIRIN 01/23/2017 REDDY DO IV K Ot Z87.19 PERSONAL HISTORY OF OTHER DISEASES OF 01/23/2017 REDDY DO VI K Ot Z87.438 PERSONAL HISTORY OF OTHER DISEASES OF [place] 01/23/2017 VI BLAKELY DO Ot Z87.891 PERSONAL HISTORY OF NICOTINE DEPENDENCE 01/23/2017 VI BLAKELY DO Ot Z90.49 ACQUIRED ABSENCE OF OTHER SPECIFIED PART 01/23/2017 VI BLAKELY DO Ot 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 01/24/2017 VI BLAKELY DO Ot E78.00 PURE HYPERCHOLESTEROLEMIA, UNSPECIFIED 01/24/2017 VI BLAKELY DO Ot I10 ESSENTIAL (PRIMARY) HYPERTENSION 01/24/2017 BERTRAND VI HDZ Ot N20.1 CALCULUS OF URETER 01/24/2017 REDDY VI HDZ Ot R10.32 LEFT LOWER QUADRANT PAIN 01/24/2017 REDDY VI HDZ Ot Z79.82 PRINCIPAL ANDROID 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 (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.] 03/11/2017 CESARIO MARTINEZ MD Ot Z79.899 OTHER PRINCIPAL ANDROID DEVELOPER (CURRENT) DRUG THERAPY 03/11/2017 CESARIO MARTINEZ MD, [...] 03/12/2017 CESARIO MARTINEZ MD Ot Z79.899 OTHER PRINCIPAL ANDROID DEVELOPER (CURRENT) DRUG THERAPY 03/12/2017 CESARIO MARTINEZ MD Ot Z87.891 PERSONAL HISTORY OF NICOTINE DEPENDENCE 09/24/2017 CESARIO MARTINEZ MD Ot N20.1 CALCULUS OF URETER 10/06/2017 CESAIRO MARTINEZ MD Ot N20.1 CALCULUS OF URETER [...] N20.0 CALCULUS OF KIDNEY 11/07/2017 MICHELLE SIERRA, CESRAIO Leiva Ot N20.1 CALCULUS OF URETER 11/07/2017 [...] Ot Z98.890 OTHER SPECIFIED POSTPROCEDURAL STATES 08/10/2018 KIMBERLEY SIERRA, NATA Wilkerson Ot E04.2 NONTOXIC MULTINODULAR GOITER 08/11/2018 CESARIO MARTINEZ MD Ot N20.1 CALCULUS OF URETER 08/17/2018 KIMBERLEY SIERRA, NATA Wilkerson Ot E04.2 NONTOXIC MULTINODULAR GOITER 08/21/2018 CESARIO MARTINEZ MD Ot N20.2 CALCULUS OF KIDNEY WITH CALCULUS OF URET 08/21/2018 CESARIO MARTINEZ MD Ot N20.2 CALCULUS OF KIDNEY WITH CALCULUS OF URET 08/25/2018 CESARIO MARTINEZ MD Ot Z01.818 ENCOUNTER FOR OTHER PREPROCEDURAL EXAMIN 08/26/2018 CESARIO MARTINEZ MD Ot Z01.818 ENCOUNTER FOR OTHER PREPROCEDURAL EXAMIN 08/26/2018 CESARIO MARTINEZ MD, Ot N20.1 CALCULUS OF URETER 08/28/2018 CESARIO MARTINEZ MD Ot E11.9 TYPE 2 DIABETES MELLITUS WITHOUT COMPLIC 08/28/2018 CESARIO MARTINEZ MD Ot E78.5 HYPERLIPIDEMIA, UNSPECIFIED 08/28/2018 CESARIO MARTINEZ MD Ot I10 ESSENTIAL (PRIMARY) HYPERTENSION 08/28/2018 CESARIO MARTINEZ MD Ot I25.10 ATHSCL HEART DISEASE OF [place] CORONARY 08/28/2018 CESARIO MARTINEZ MD Ot M06.9 RHEUMATOID ARTHRITIS, UNSPECIFIED 08/28/2018 CESARIO MARTINEZ MD Ot N20.1 CALCULUS OF URETER 08/28/2018 CESARIO MARTINEZ MD Ot N40.0 BENIGN PROSTATIC HYPERPLASIA WITHOUT LOW 08/28/2018 CESARIO MARTINEZ MD Ot Z11.2 ENCOUNTER FOR SCREENING FOR OTHER BACTER 08/28/2018 CESARIO MARTINEZ MD Ot Z79.82 PRINCIPAL ANDROID DEVELOPER (CURRENT) USE OF ASPIRIN 08/28/2018 CESARIO MARTINEZ MD, Ot Z79.899 OTHER PRINCIPAL ANDROID DEVELOPER (CURRENT) DRUG THERAPY 09/01/2018 CESARIO MARTINEZ MD Ot E11.9 TYPE 2 DIABETES MELLITUS WITHOUT COMPLIC 09/01/2018 CESARIO MARTINEZ MD Ot E78.5 HYPERLIPIDEMIA, UNSPECIFIED 09/01/2018 CESARIO MARTINEZ MD Ot I10 ESSENTIAL (PRIMARY) HYPERTENSION 09/01/2018 CESARIO MARTINEZ MD, Ot I25.10 ATHSCL HEART DISEASE OF [place] CORONARY 09/01/2018 CESARIO MARTINEZ MD, Ot M06.9 RHEUMATOID ARTHRITIS, UNSPECIFIED 09/01/2018 CESARIO MARTINEZ MD, Ot N20.1 CALCULUS OF URETER 09/01/2018 CESARIO MARTINEZ MD, Ot N40.0 BENIGN PROSTATIC HYPERPLASIA WITHOUT LOW 09/01/2018 CESARIO MARTINEZ MD, Ot Z11.2 ENCOUNTER FOR SCREENING FOR OTHER BACTER 09/01/2018 CESARIO MARTINEZ MD, Ot Z79.82 PRINCIPAL ANDROID DEVELOPER (CURRENT) USE OF ASPIRIN 09/01/2018 CESARIO MARTINEZ MD, Ot Z79.899 OTHER JAIL (CURRENT) DRUG THERAPY 09/03/2018 CESARIO MARTINEZ MD, Ot N20.2 CALCULUS OF KIDNEY WITH CALCULUS OF URET 09/03/2018 CESARIO MARTINEZ MD, Ot N20.1 CALCULUS OF URETER Procedures Code Description Performed By Performed On 58.6 URETHRAL DILATION 10/19/2010 [id number] REPLACE OF R KNEE JT WITH SYNTH [...] Automated erythrocyte mean corpuscular hemoglobin concentration measurement (mass/volume) 34 g/dL 32-36 Automated erythrocyte distribution width ratio 12.8 % 10.0- 14.5 Automated blood platelet count (count/volume) 213 10*3/uL [...] Blood monocytes automated count (number/volume) 1.1 10*3 0.0- 1.0 Automated eosinophil count 0.0 10*3/uL 0.0-0.3 Automated blood basophil count (count/volume) 0.1 10*3/uL 0.0-0.1 Blood lactic acid measurement (moles/volume) - 03/23/16 18:54 Blood lactic acid measurement (moles/volume) 2.1 mmol/L 0.5- 2.0 Blood manual differential performed detection - 03/23/16 18:54 Blood monocytes/100 leukocytes 3 % NRG Manual blood segmented neutrophils/100 leukocytes 89 % NRG Blood band neutrophils/100 leukocytes 3 % NRG Manual blood lymphocytes/100 leukocytes 5 % NRG Blood erythrocyte morphology finding identification NORMAL [facility] Comprehensive metabolic panel - 03/23/16 18:54 Serum [...] Serum or plasma aspartate aminotransferase measurement (enzymatic activity/volume) 17 U/L 5-34 Serum or plasma alanine aminotransferase measurement (enzymatic activity/volume) 13 U/L 0-55 Serum or plasma protein measurement (mass/volume) 7.3 g/dL 6.4-8.2 Serum or plasma albumin measurement (mass/volume) 3.7 g/dL 3.2-4.5 Serum or plasma uric acid measurement (mass/volume) - 03/23/16 18:54 Serum or plasma uric acid measurement (mass/volume) 5.2 mg/dL 2.6-7.2 Serum or plasma C reactive protein measurement (mass/volume) - 03/23/16 18:54 Serum or plasma C reactive protein measurement (mass/volume) > mg/dL 0.00-0.50 Serum or plasma uric acid measurement [...] gravity of urine by test strip 1.015 1.016-1.022 Urine protein assay by test strip, semi-quantitative [...] sediment leukocyte count by microscopy (number/high power field) [HPF] NRG Bacteria detection in urine sediment [...] CLDY NRG Body fluid leukocytes count (number/volume) 55518 /uL NRG Body fluid erythrocytes count (number/volume) 13013 /uL NRG Manual body fluid polymorphonuclear cells/100 [...] TEXT EXTERNAL REPORTED TO DR STRANGE AT [facility] QUANTITY OF GROWTH Scant Growth NR FREE TEXT ENTRY 2 03/24/16 15:30 BY Dru NICKERSON [facility] Bacterial body fluid culture [id number] [facility] Complete blood count (CBC) with automated white [...] Automated erythrocyte mean corpuscular hemoglobin concentration measurement (mass/volume) 33 g/dL 32-36 Automated erythrocyte distribution width ratio 12.8 % 10.0- 14.5 Automated blood platelet count (count/volume) 612 10*3/uL [...] Blood monocytes automated count (number/volume) 0.9 10*3 0.0- 1.0 Automated eosinophil count 0.4 10*3/uL 0.0-0.3 Automated [...] Serum or plasma aspartate aminotransferase measurement (enzymatic activity/volume) 14 U/L 5-34 Serum or plasma alanine aminotransferase measurement (enzymatic activity/volume) 7 U/L 0-55 Serum or plasma protein [...] Automated erythrocyte mean corpuscular hemoglobin concentration measurement (mass/volume) 32 g/dL 32-36 Automated erythrocyte distribution width ratio 13.7 % 10.0- 14.5 Automated blood platelet count (count/volume) 418 10*3/uL [...] Blood monocytes automated count (number/volume) 1.0 10*3 0.0- 1.0 Automated eosinophil count 0.7 10*3/uL 0.0-0.3 Automated [...] sedimentation rate by westergren method > mm 0- 30 Complete blood count (CBC) with automated white [...] Automated erythrocyte mean corpuscular hemoglobin concentration measurement (mass/volume) 34 g/dL 32-36 Automated erythrocyte distribution width ratio 12.5 % 10.0- 14.5 Automated blood platelet count (count/volume) 267 10*3/uL [...] Blood monocytes automated count (number/volume) 0.9 10*3 0.0- 1.0 Automated eosinophil count 0.5 10*3/uL 0.0-0.3 Automated [...] Serum or plasma aspartate aminotransferase measurement (enzymatic activity/volume) 19 U/L 5-34 Serum or plasma alanine aminotransferase measurement (enzymatic activity/volume) 27 U/L 0-55 Serum or plasma protein measurement (mass/volume) 7.3 g/dL 6.4-8.2 Serum or plasma albumin measurement (mass/volume) 4.1 g/dL 3.2-4.5 Serum or plasma amylase measurement (enzymatic activity/volume) - 01/22/17 03:35 Serum or plasma amylase measurement (enzymatic activity/volume) 62 U/L 25-125 Lipase - 01/22/17 03:35 Lipase 34 U/L 8-78 Complete urinalysis with reflex to culture - 01/22/17 04:07 Urine color determination YELLOW NRG Urine clarity determination SLIGHTLY CLOUDY NRG Urine pH measurement by test strip 7 5-9 Specific gravity of urine by test strip 1.010 1.016-1.022 Urine protein assay by test strip, semi-quantitative [...] sediment leukocyte count by microscopy (number/high power field) NONE NRG Bacteria detection in urine sediment [...] resistant Staphylococcus aureus (MRSA) screening culture - 02/04/17 07:25 Methicillin resistant Staphylococcus aureus (MRSA) screening culture NEG NRG Methicillin resistant Staphylococcus aureus (MRSA) screening culture - 03/11/17 08:50 Methicillin resistant Staphylococcus aureus (MRSA) screening culture NEG NRG Complete urinalysis with reflex to culture - 08/07/18 17:50 Urine color determination YELLOW NRG Urine clarity determination CLEAR NRG Urine pH measurement by test strip 7 5-9 Specific gravity of urine by test strip 1.005 1.016-1.022 Urine protein assay by test strip, semi-quantitative [...] sediment leukocyte count by microscopy (number/high power field) RARE NRG Bacteria detection in urine sediment [...] Automated erythrocyte mean corpuscular hemoglobin concentration measurement (mass/volume) 34 g/dL 32-36 Automated erythrocyte distribution width ratio 13.1 % 10.0- 14.5 Automated blood platelet count (count/volume) 291 10*3/uL [...] Blood monocytes automated count (number/volume) 1.2 10*3 0.0- 1.0 Automated eosinophil count 0.6 10*3/uL 0.0-0.3 Automated [...] Serum or plasma aspartate aminotransferase measurement (enzymatic activity/volume) 20 U/L 5-34 Serum or plasma alanine aminotransferase measurement (enzymatic activity/volume) 20 U/L 0-55 Serum or plasma protein measurement (mass/volume) 7.5 g/dL 6.4-8.2 Serum or plasma albumin measurement (mass/volume) 4.3 g/dL 3.2-4.5 CALCIUM CORRECTED 9.8 mg/dL 8.5-10.1 Serum or plasma amylase measurement (enzymatic activity/volume) - 08/07/18 17:57 Serum or plasma amylase measurement (enzymatic activity/volume) 62 U/L 25-125 Lipase - 08/07/18 17:57 Lipase 35 U/L 8-78 Methicillin resistant Staphylococcus aureus (MRSA) screening culture - 08/26/18 06:18 Methicillin resistant Staphylococcus aureus (MRSA) screening culture NEG NRG Encounters ACCT No. Visit Date/Time Discharge Status Pt. Type Provider Facility Loc./Unit Complaint [id number] 08/26/2018 06:08:00 08/26/2018 11:05:00 DIS Outpatient CESARIO MARTINEZ MD Via [facility] SDC LEFT URETERAL STONE [id number] 08/25/2018 09:55:00 08/25/2018 10:36:00 DIS Outpatient CESARIO MARTINEZ MD [facility] PREOP LEFT URETERAL STONE [id number] 08/20/2018 09:46:00 08/20/2018 23:59:59 CLS Outpatient CESARIO MARTINEZ MD [facility] RAD LT URETERAL STONE [id number] 08/10/2018 14:15:00 08/10/2018 23:59:59 CLS Outpatient CESARIO MARTINEZ MD [facility] RAD L URETERAL STONE [id number] 08/07/2018 17:39:00 08/07/2018 23:59:59 CLS Emergency REDDY VI Duran [facility] ER L SIDE PAIN [id number] 07/09/2018 08:53:00 07/09/2018 23:59:59 CLS Outpatient NATA CHU MD [facility] RAD THYROID NODULE [id number] 07/01/2018 09:27:00 07/01/2018 23:59:59 CLS Outpatient NATA CHU MD [facility] CARD CAROTID ARTERY STENOSIS [id number] 09/23/2017 16:31:00 09/23/2017 23:59:59 CLS Outpatient CESARIO MARTINEZ MD [facility] RAD URETERAL STONE [id number] 03/11/2017 07:14:00 03/11/2017 12:20:00 DIS Outpatient CESARIO MARTINEZ MD [facility] SDC LEFT URETERAL STONE [id number] 02/19/2017 10:12:00 02/19/2017 23:59:59 CLS Outpatient CESARIO MARTINEZ MD [facility] RAD URETERAL STONE [id number] 02/04/2017 06:52:00 02/04/2017 11:38:00 DIS Outpatient CESARIO MARTINEZ MD [facility] SDC LEFT URETERAL STONE [id number] 01/28/2017 05:30:00 01/28/2017 12:23:00 DIS Outpatient MICHELLE SIERRA, CESARIO Leiva [facility] PREOP LT URETEROSCOPY W/LITHOCLAST,POSS.MERVATSAAD, [id number] 01/27/2017 12:46:00 01/27/2017 23:59:59 CLS Outpatient MICHELLE SIERRA, CESARIO Leiva [facility] RAD LEFT URETER STONE [id number] 01/22/2017 03:18:00 01/22/2017 05:00:00 DIS Emergency REDDY VI Duran [facility] ER SEVERE ABD PAIN [id number] 07/10/2016 12:54:00 07/10/2016 15:04:00 DIS Outpatient KARISHMA EARLYP-[place] [facility] REHAB R TKA I D S/P [id number] 04/15/2016 10:27:00 04/15/2016 23:59:59 CLS Outpatient SYED SIERRA, [place] Leiva [facility] HH SEPTIC ARTHRITIS [id number] 04/04/2016 16:33:00 04/12/2016 14:15:00 DIS Inpatient SMITH SIERRA, KEN Alvarenga [facility] IRF SEPTIC ARTHRITIS RT KNEE [id number] 03/23/2016 17:28:00 03/23/2016 22:24:00 DIS Emergency VERONICA EL MD [facility] ER R KNEE SWELLING, CHILLS, HOT FLASHES [id number] 02/08/2016 14:00:00 02/08/2016 17:00:00 DIS Outpatient LAURA ZHU MD [facility] REHAB R TKA [id number] 02/02/2016 10:00:00 02/02/2016 17:00:00 DIS Outpatient LAURA ZHU MD [facility] REHAB R TKA [id number] 11/22/2015 05:54:00 11/25/2015 18:25:00 DIS Inpatient LAURA ZHU MD [facility] 4TH OSTEOARTHRITIS [id number] 11/08/2015 09:04:00 11/08/2015 10:00:00 DIS Outpatient LAURA ZHU MD [facility] PREOP OSTEOARTHRITIS [id number] 12/23/2013 13:49:00 12/23/2013 23:59:59 CLS Outpatient HAO LEES, ZEYAD Duran [facility] CARD ENRIQUE,HTN,HLP [id number] 09/18/2012 07:34:00 09/18/2012 11:15:00 DIS Outpatient DEVEN CANELA MD [facility] SDC HX COLON POLYPS [id number] 09/17/2012 07:47:00 09/17/2012 23:59:59 CLS Outpatient DEVEN CANELA MD [facility] PREOP HX COLON POLYPS [id number] 10/18/2014 09:05:00 Document Registration [id number] 10/18/2014 09:05:00 Document Registration [id number] 10/18/2014 09:05:00 Document Registration [id number] 06/21/2014 10:44:00 Document Registration [id number] 06/15/2012 15:44:00 Document Registration [id number] 02/19/2012 11:22:00 Document Registration [id number] 10/15/2010 11:22:00 Document Registration [id number] 11/15/2009 15:23:00 Document Registration
[2018-11-11 01:29] LABS: ALANINE AMINOTRANSFERASE 21 U/L (0-55); ALBUMIN 4.2 GM/DL (3.2-4.5); ALKALINE PHOSPHATASE 102 U/L (40-136); BILIRUBIN,TOTAL 0.5 MG/DL (0.1-1.0); BUN/CREATININE RATIO 18; CALCIUM 9.8 MG/DL (8.5-10.1); CARBON DIOXIDE 22 MMOL/L (21-32); CHLORIDE 105 MMOL/L (98-107); CREATININE SERUM 0.98 MG/DL (0.60-1.30); GFR ESTIMATED > 60; GLUCOSE 121 MG/DL (70-105); POTASSIUM 3.4 MMOL/L (3.6-5.0); SODIUM 142 MMOL/L (135-145); TOTAL PROTEIN 6.8 GM/DL (6.4-8.2)
[2018-11-11] MEDS ORDERED: ONDANSETRON 4 MG/2 ML (SDV) Z0FRAN IVP ONE (01:30)
[2018-11-11] MEDS ORDERED: RT-ALBUTEROL/IPRATROPIUM 3 ML (DUONEB) VIAL INH ONE (02:30)
--- NOTE | 2018-11-11 03:15 | NUR ---
NEW ORDER TO START O2 AT 1L PER NC FOR DESAT TO 86-89% AFTER RAISING HEAD OF BED, BREATHING TREATMENT, pCXR.
--- NOTE | 2018-11-11 03:17 | NUR ---
02 INCREASED TO 2L PER NC FOR SAT RANGING 88-90% ON 1L 02.
--- NOTE | 2018-11-11 06:33 | ED Abdominal Pain ---
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 PAIN RADIATES TO BACK WHEN SITTING. LAST MONTH HE HAD 3RD KIDNEY STONE "BLASTED" BY DR. MARTINEZ ON LEFT SIDE. DENIES BURING WITH URINATION. Sepsis Screen: No Definite Risk Source of Information: Patient Exam Limitations: No Limitations History of Present Illness Date Seen by Provider: Nov 11, 2018 Time Seen by Provider: 01:12 Initial Comments This 83-year-old gentleman presents to the emergency room with complaints of generalized abdominal pain. He noted his urine to be dark tonight as well. He reports recently having a ureteral stone treated with lithotripsy by Dr. Martinez. This pain feels similar to his prior ureteral stone. He denies any fever, vomiting, diarrhea, or other symptoms. Allergies and Home Medications Allergies Coded Allergies: No Known Drug Allergies (Unverified , 01/28/17) Home Medications Ascorbic Acid 1,000 Mg Tablet, 1,000 MG PO DAILY, (Reported) Atorvastatin Calcium 20 Mg Tablet, 20 MG PO HS, (Reported) Cholecalciferol (Vitamin D3) 2,000 Unit Tablet, 2,000 UNIT PO DAILY, (Reported) Ciprofloxacin HCl 500 Mg Tablet, 500 MG PO BID Prescribed by: MORENITA AFLRED on 08/26/1847 Docusate Sodium 100 Mg Capsule, 100 MG PO DAILY, (Reported) Hydrocodone/Acetaminophen 1 Each Tablet, 1-2 EACH PO Q6H PRN for PAIN-MODERATE Prescribed by: MORENITA ALFRED on 08/26/1847 [employer] Goldberglactis 1 Each Capsule, 1 TAB PO DAILY, (Reported) Metoprolol Succinate 25 Mg Tab.er.24h, 25 MG PO DAILY, (Reported) [place]-3 Fatty Acids/Fish Oil 1 Each Capsule, 1,200 MG PO DAILY, (Reported) Penicillin V Potassium 500 Mg Tablet, 500 MG PO DAILY, (Reported) Tamsulosin HCl 0.4 Mg Cap, 0.4 MG PO DAILY, (Reported) Terazosin HCl 2 Mg Capsule, 2 MG PO HS, (Reported) Triamterene/Hydrochlorothiazid 1 Each Capsule, 1 TAB PO DAILY, (Reported) Patient Home Medication List Home Medication List Reviewed: Yes Review of Systems Review of Systems Constitutional: no symptoms reported EENTM: No Symptoms Reported Respiratory: No Symptoms Reported Cardiovascular: No Symptoms Reported Gastrointestinal: See HPI Genitourinary: See HPI Musculoskeletal: no symptoms reported Skin: no symptoms reported Psychiatric/Neurological: No Symptoms Reported Endocrine: No Symptoms Reported Hematologic/Lymphatic: No Symptoms Reported Past Bcxbpco-Eetkwm-Jartwa Hx Past Med/Social Hx: Reviewed Nursing Past Med/Soc Hx Patient Social History Alcohol Use: Occasionally Uses Recreational Drug Use: No Smoking Status: Former Smoker Type Used: Cigarettes Former Smoker, Quit: Jan 28, 1978 2nd Hand Smoke Exposure: Yes Recent Foreign Travel: No Contact w/Someone Who Travel: No Recent Infectious Disease Expo: No Recent Hopitalizations: No Immunizations Up To Date Tetanus Booster (TDap): Unknown Date of Pneumonia Vaccine: Oct 03, 2008 Date of Influenza Vaccine: Jan 13, 2018 Seasonal Allergies Seasonal Allergies: No Past Medical History Surgeries: Yes (HEMORRHOIDS, HERNIA, KIDNEY STONE X3, CIRC, RT TKR x3) Abdominal, Appendectomy, Joint Replacement, Orthopedic, Rectal, Renal Respiratory: No Cardiac: Yes High Cholesterol, Hypertension Neurological: No Reproductive Disorders: No Sexually Transmitted Disease: No HIV/AIDS: No Genitourinary: Yes Prostate Problems, Kidney Stones Gastrointestinal: Yes Abdominal Hernia, Chronic Constipation, Hemorrhoids, Polyps Musculoskeletal: Yes (LOWER BACK PAIN) Arthritis, Chronic Back Pain Endocrine: Yes (BORDERLINE DIABETES) HEENT: Yes Cataract Hearing Impairment: Denies Cancer: No Psychosocial: No Integumentary: Yes Pruritis Blood Disorders: No Adverse Reaction/Blood Tranf: No (N/A) Family Medical History Cardiovascular disease 19 FATHER Colon cancer 19 MOTHER Diabetes mellitus 19 MOTHER Myocardial infarction 19 FATHER No Pertinent Family Hx Physical Exam Vital Signs Vital Signs - First Documented 11/11/18 11/11/18 11/11/18 01:00 02:41 03:15 Temp 98.3 Pulse 76 Resp 20 B/P (MAP) 147/66 (93) Pulse Ox 92 O2 Delivery Room Air O2 Flow Rate 1.00 Capillary Refill : Less Than 3 Seconds Height/Weight/BMI Height: 5'9.00" Weight: 205lbs. 0oz. [id number]; 30.1 BMI Method:Stated General Appearance: WD/WN, mild distress HEENT: PERRL/EOMI, normal ENT inspection Neck: normal inspection Respiratory: lungs clear, normal breath sounds, no respiratory distress, no accessory muscle use Cardiovascular: regular rate, rhythm, no edema, no murmur Gastrointestinal: normal bowel sounds, soft, tenderness (minimal, generalized) Extremities: normal inspection, no pedal edema Neurologic/Psychiatric: corrections lieutenant II-XII nml as tested, no motor/sensory deficits, alert, normal mood/affect, oriented x 3 Skin: normal color, warm/dry Progress/Results/Core Measures Results/Orders Lab Results Laboratory Tests Test 11/11/18 00:54 11/11/18 01:00 11/11/18 02:02 Range/Units Urine Color YELLOW Urine Clarity CLEAR Urine pH 6 5-9 Urine Specific [place] 1.025 H 1.016-1.022 Urine Protein 2+ H NEGATIVE Urine Glucose (UA) NEGATIVE NEGATIVE Urine Ketones NEGATIVE NEGATIVE Urine Nitrite NEGATIVE NEGATIVE Urine Bilirubin NEGATIVE NEGATIVE Urine Urobilinogen 1 NORMAL MG/DL Urine Leukocyte Esterase 1+ H NEGATIVE Urine RBC (Auto) 5+ H NEGATIVE Urine RBC 50-100 H /HPF Urine WBC 0-2 /HPF Urine Squamous Epithelial Cells RARE /HPF Urine Crystals NONE /LPF Urine Bacteria FEW H /HPF Urine Casts NONE /LPF Urine Mucus SMALL H /LPF Urine Culture Indicated NO White Blood Count 8.4 4.3-11.0 10^3/uL Red Blood Count 4.70 4.35-5.85 10^6/uL Hemoglobin 14.3 13.3-17.7 G/DL Hematocrit 43 40-54 % Mean Corpuscular Volume 92 80-99 FL Mean Corpuscular Hemoglobin 30 25-34 PG Mean Corpuscular Hemoglobin Concent 33 32-36 G/DL Red Cell Distribution Width 13.1 10.0-14.5 % Platelet Count 240 130-400 10^3/uL Mean Platelet Volume 10.8 H 7.4-10.4 FL Neutrophils (%) (Auto) 62 42-75 % Lymphocytes (%) (Auto) 22 12-44 % Monocytes (%) (Auto) 9 0-12 % Eosinophils (%) (Auto) 6 0-10 % Basophils (%) (Auto) 1 0-10 % Neutrophils # (Auto) 5.2 1.8-7.8 X 10^3 Lymphocytes # (Auto) 1.9 1.0-4.0 X 10^3 Monocytes # (Auto) 0.7 0.0-1.0 X 10^3 Eosinophils # (Auto) 0.5 H 0.0-0.3 10^3/uL Basophils # (Auto) 0.1 0.0-0.1 10^3/uL Sodium Level 142 135-145 MMOL/L Potassium Level 3.4 L 3.6-5.0 MMOL/L Chloride Level 105 98-107 MMOL/L Carbon Dioxide Level 22 21-32 MMOL/L Anion Gap 15 H 5-14 MMOL/L Blood Urea Nitrogen 18 7-18 MG/DL Creatinine 0.98 0.60-1.30 MG/DL Estimat Glomerular Filtration Rate > 60 BUN/Creatinine Ratio 18 Glucose Level 121 H 70-105 MG/DL Calcium Level 9.8 8.5-10.1 MG/DL Corrected Calcium 9.6 8.5-10.1 MG/DL Total Bilirubin 0.5 0.1-1.0 MG/DL Aspartate Amino Transf (AST/SGOT) 17 5-34 U/L Alanine Aminotransferase (ALT/SGPT) 21 0-55 U/L Alkaline Phosphatase 102 40-136 U/L Total Protein 6.8 6.4-8.2 GM/DL Albumin 4.2 3.2-4.5 GM/DL Serum Alcohol 13 H <10 MG/DL My Orders Orders - ZENA MCARTHUR MD Ed Iv/Invasive Line Start (11/11/18 00:49) Cbc With Automated Diff (11/11/18 00:49) Comprehensive Metabolic Panel (11/11/18 00:49) Ua Culture If Indicated (11/11/18 00:49) Ns Iv 1000 Ml (Sodium Chloride 0.9%) (11/11/18 01:14) Ketorolac Injection (Toradol Injection) (11/11/18 01:15) Ondansetron Injection (Zofran Injectio (11/11/18 01:30) Ct Abd/Pelvis Wo(Kidney Stone) (11/11/18 01:34) Alcohol (11/11/18 02:26) Albuterol/Ipra Inhalation Soln (Duoneb I (11/11/18 02:30) Svn Small Volume Nebulizer (11/11/18 02:29) Chest Pa/Lat (2 View) (11/11/18 02:50) Abdomen/Kub 1view (11/11/18 02:50) O2 (11/11/18 03:19) Medications Given in ED Current Medications Medications Dose Ordered Sig/Gilbert Route Start Time Stop Time Status Last Admin Dose Admin Albuterol/ Ipratropium 3 ml ONCE ONCE INH 11/11/18 02:30 11/11/18 02:31 DC 11/11/18 02:40 3 ML Ketorolac Tromethamine 30 mg ONCE ONCE IVP 11/11/18 01:15 11/11/18 01:16 DC 11/11/18 01:21 30 MG Ondansetron HCl 8 mg ONCE ONCE IVP 11/11/18 01:30 11/11/18 01:31 DC 11/11/18 01:21 8 MG Sodium Chloride 1,000 ml @ 0 mls/hr Q0M ONCE IV 11/11/18 01:14 11/11/18 01:16 DC 11/11/18 01:22 999 MLS/HR Vital Signs/I&O 11/11/18 11/11/18 11/11/18 01:00 02:41 03:15 Temp 98.3 Pulse 76 Resp 20 B/P (MAP) 147/66 (93) Pulse Ox 92 90 O2 Delivery Room Air Nasal Cannula O2 Flow Rate 1.00 Blood Pressure Mean: 93 Progress Progress Note : Progress Note Pain was treated with Toradol and patient was hydrated with IV fluids. CT scan was obtained and revealed a 4.5 mm obstructing right ureteral stone. As patient became more comfortable and was drifting off to sleep, he had recurrent episodes of hypoxia as low as 86 percent with a good waveform. He was provided supple mental oxygen. Because of the hypoxia a chest x-ray was performed which was unremarkable. Patient denied any chest pain or shortness of breath. Patient stayed and rested in the ER for a few hours on oxygen support. He wanted to get home by 07:00. He was woken at shift change and had oxygen saturations in the 93-97 percent range on room air while awake. I contacted Dr. Bear regarding his nocturnal hypoxia. The cause of his hypoxia is uncertain. Patient will longer smokes but is exposed to significant secondhand smoke. A DuoNeb treatment was administered but did not seem to improve his oxygenation. Patient admitted to drinking mika last night but his blood alcohol level was only 13. Diagnostic Imaging Diagonstic Imaging: CT Plain Films/CT/US/NM/MRI: abdomen, pelvis Comments CT abdomen and pelvis viewed by me and stat rad report reviewed. There is a 4.5 mm obstructing stone in the distal right ureter. Diagonstic Imaging: Xray Plain Films/CT/US/NM/MRI: abdomen, pelvis Comments KUB viewed by me. Report not yet available. There is calcific density in the right pelvis consistent with either ureteral stone or phlebolith. Some phleboliths were noted on the CT scan. Diagonstic Imaging: Xray Plain Films/CT/US/NM/MRI: chest Comments Chest x-ray viewed by me. Report not yet available. Compared with prior. There is some linear density in the left lower lung consistent with scarring or atelectasis. No other acute abnormalities appreciated. Departure Impression Primary Impression: Right ureteral stone Additional Impression: Nocturnal hypoxia Disposition: 01 HOME, SELF-CARE Condition: Improved Departure-Patient Inst. Decision time for Depature: 06:28 Referrals: SAMARA BEAR MD (PCP/Family) Primary Care Physician Patient Instructions: Kidney Stones in Adults Add. Discharge Instructions: Drink plenty of clear liquids. Strain your urine and bring any stones collected to your follow-up appointment. Use ibuprofen up to 600 mg every 6 hours as needed for your primary pain medication. You may add your hydrocodone or oxycodone if needed. Use the op ioid pain medications sparingly as they may worsen your hypoxia. Follow-up with Dr. Bear's office regarding your hypoxia (low oxygen) call her office this afternoon if you have not heard from them by that time. Follow-up with Dr. Martinez as soon as possible. Please call his office today. Return to the emergency room if you have worsening symptoms. All discharge instructions reviewed with patient and/or family. Voiced understanding. Copy Copies To 1: SAMARA BEAR MD Copies To 2: CESARIO MARTINEZ MD, JOSHUA T MD Nov 11, 2018 06:33
[2018-11-11 06:38] VITALS: BP 146/78
--- NOTE | 2018-11-11 06:38 | NUR ---
SEE NOTES ON STAY FOR REST WHILE ON OXYGEN.
--- NOTE | 2018-11-11 08:05 | Diagnostic Imaging Report ---
INDICATION: Shortness of air, cough, and congestion EXAMINATION: Two-view chest 11/11/2018 FINDINGS: There is linear atelectasis or scarring at the left lung base. No infiltrates. No effusions. No pneumothorax. The heart is unremarkable. Pulmonary vasculature is normal in appearance. IMPRESSION: 1. Atelectasis versus scar left lung base. Remaining chest is unremarkable. 2. Not mentioned above, questionable sclerosis along the lower thoracic vertebral bodies on the lateral view. No abnormality in the region on prior CT dated 08/07/2018. If there is focal pain, dedicated imaging of the spine could better characterize as clinically indicated. Dictated by: Dictated on workstation # [id number]
--- NOTE | 2018-11-11 08:24 | Diagnostic Imaging Report ---
Indication: Low back pain, right kidney stone in the past. Examination: Abdomen dated 11/11/2018. Correlation made to a CT from the same date at an earlier time. Findings: Scattered air and stool seen throughout the colon to the rectosigmoid. Multiple calcifications are seen in the pelvis consistent with phleboliths on recent CT. A right distal ureteral stone on the recent CT is likely the calcification in the right aspect of the pelvis. Tiny punctate hyperdensity superimposed upon the expected location of the kidneys consistent with the stones seen on the recent CT on the right. No free air seen. Impression: 1. Hyperdensity in the right aspect of the pelvis most likely the stone previously seen on the CT imaging. Tiny punctate nephrolithiasis on the right also noted. 2. Nonobstructive bowel gas pattern. Dictated by: Dictated on workstation # [id number]
--- NOTE | 2018-11-11 08:42 | Diagnostic Imaging Report ---
INDICATION: Low back pain, history of kidney stones and appendicitis. EXAMINATION: CT abdomen/pelvis without contrast on 11/11/2018. COMPARISON: 08/07/2018. FINDINGS: There is moderate right hydroureteronephrosis. Within the distal right ureter proximal to the UVJ, there is an approximately 5-6 mm stone. There are nonobstructive stones seen throughout the right kidney. Perinephric stranding about the right kidney is also present. No nephrolithiasis on the left. No hydronephrosis. No ureteral stones are noted in the left ureter. A small hiatal hernia is noted. The abdominal viscera is limited due to the lack of contrast. No acute abnormality is appreciated in the liver, gallbladder, spleen, adrenal glands, or pancreas. There is diverticular disease without evidence for acute diverticulitis. There is no free air or fluid. Fat-containing bilateral inguinal hernias are noted. There is diffuse calcification throughout a slightly prominent prostate gland. The osseous structures demonstrate diffuse degenerative disease and mild osteopenia. The visualized lung bases demonstrate chronic findings of scarring and/or atelectatic change. IMPRESSION: 1. Obstructive stone in the distal right ureter causing moderate to near severe right hydroureteronephrosis and secondary fat stranding about the right kidney. 2. Right sided nonobstructive nephrolithiasis. 3. Diverticulosis but no acute diverticulitis. 4. Other incidental findings as discussed above. 5. This is in agreement with the preliminary report. Dictated by: Dictated on workstation # [id number]
== END 2018-11-11 06:39 | disposition home or self-care (01) ==
LOC: EDUNIT# 00:44 → ER 00:46
DX: N20.1 Calculus of ureter (principal); R09.02 Hypoxemia; I10 Essential (primary) hypertension; E78.00 Pure hypercholesterolemia, unspecified; Z87.19 Personal history of other diseases of the digestive system; Z86.010 Personal history of colon polyps; Z87.442 Personal history of urinary calculi; Z87.891 Personal history of nicotine dependence; Z96.651 Presence of right artificial knee joint; Z90.49 Acquired absence of other specified parts of digestive tract; Z82.49 Family history of ischemic heart disease and other diseases of the circulatory system; Z80.0 Family history of malignant neoplasm of digestive organs
CPT/HCPCS: 36415; 71046; 74018; 74176; 80053; 80320; 81000; 85025; 94640; 96374; 96375

== ENCOUNTER → 2018-11-12 | Outpatient (CLI) | payer BC, MEDICARE ==
[~2018-11-12] MED LIST changes: +SULF1TAB35 PO
--- NOTE | 2018-11-12 17:58 | Diagnostic Imaging Report ---
INDICATION: History of kidney stones. TIME OF EXAM: 03:39 p.m. Correlation is made with prior exam one day earlier. FINDINGS: A 6 mm calculus in the right pelvis is noted, likely distal ureteric calculus noted on recent CT. No other urinary tract calculi are seen. Bowel gas pattern is unremarkable. IMPRESSION: Distal right ureteric calculus, similar to CT study from one day earlier and also similar to the abdominal radiograph one day earlier. Dictated by: Dictated on workstation # [id number]
== END ==
LOC: RAD 15:31
PROVIDERS: ATTEND Urology
DX: N20.1 Calculus of ureter (principal)
CPT/HCPCS: 74018

== ENCOUNTER 2018-11-17 05:39 | Outpatient (CLI) | payer BC, MEDICARE ==
[~2018-11-17] VITALS: Ht 175.3 cm; Wt 93.0 kg
[~2018-11-17 05:39] MED LIST changes: -SULF1TAB35 PO
[2018-11-17] MEDS ORDERED: ASPI-586 PO (10:14)
[2018-11-18] MEDS ORDERED: SULF1TAB35 PO (09:01)
== END 2018-11-17 10:32 | disposition home or self-care (01) ==
LOC: PREOP 05:39
PROVIDERS: ATTEND Urology
DX: Z01.818 Encounter for other preprocedural examination (principal)

== ENCOUNTER → 2019-01-26 | Outpatient (CLI) | payer BC, MEDICARE ==
[~2019-01-26] MED LIST changes: +SULF1TAB35 PO
--- NOTE | 2019-01-27 19:09 | Diagnostic Imaging Report ---
EXAMINATION: I-123 thyroid uptake scan. INDICATION: Thyroid mass. FINDINGS: There are no prior nuclear medicine studies available for comparison. The thyroid ultrasound exam of 07/09/2018 did note that the thyroid gland was enlarged and there were multiple nodules involving both lobes including an 18 x 10 x 14 mm nodule in the superior pole of the right lobe. There is also a 14 x 12 x 9 MM hypoechoic nodule in the inferior pole of the left lobe. The nodule in the right lobe has more of the appearance of a slightly complicated cyst while the nodule in the left lobe appears to be solid. This study was performed following the administration of 191 microcuries of I-123. The 4-hour uptake is 11.04% and the 24-hour uptake is 28.34% (normal 11-35%). There is generalized distribution of the radiotracer throughout both lobes. There is no discrete solid or cystic mass identified. The thyroid gland does not seem to be significantly enlarged either. IMPRESSION: 1. The 24-hour uptake value is within normal limits. 2. The thyroid gland does not appear to be enlarged and there is no discrete area of increased or decreased activity. 3. If further evaluation of the nodules involving the thyroid gland is desired, then repeat ultrasound exam would be recommended. Dictated by: Dictated on workstation # [id number]
== END ==
LOC: CARD 11:27
PROVIDERS: ATTEND Family Medicine
DX: E07.89 Other specified disorders of thyroid (principal)
CPT/HCPCS: 78014

== ENCOUNTER 2019-03-12 22:12 | Emergency (ER) | payer BC, MEDICARE ==
[~2019-03-12] VITALS: Ht 175 cm; Wt 91.6 kg
--- NOTE | 2019-03-12 22:37 | ED Fall/Injury ---
General Chief Complaint: Respiratory Problems Stated Complaint: SOB Nursing Triage Note: TRIPPED ON A ROPE IN THE YARD AND FELL INTO A PLASTIC TOTE ON HIS ANTERIOR HIS RIGHT CHEST. SOB PAIN WIEN COUGHING Source: patient History of Present Illness Date Seen by Provider: Mar 12, 2019 Time Seen by Provider: 22:27 Initial Comments PT ARRIVES VIA POV FROM HOME STATES THAT HE LOST HIS BALANCE AND FELL, HITTING HIS RIGHT MID CHEST ON THE CORNER OF A PLASTIC STORAGE CONTAINER ( TOLD RN THAT HE TRIPPED ON A ROPE AND FELL) OCCURRED AT 1800 TONIGHT AT HOME STATES HE FINISHED BARBEQUE-ING, THEN ATE, AND THEN CAME HERE HAS NOT TAKEN ANYTHING FOR PAIN AT ANY TIME DID NOT HIT HEAD AND NO LOSS OF CONSCIOUSNESS NO NECK OR BACK PAIN NO ABDOMINAL PAIN OR NAUSEA/VOMTING NO HIP OR LEG PAIN NO ARM PAIN STATES HIS RIGHT CHEST HURTS TO BREATHE OR COUGH, BUT DOES NOT ACTUALLY FEEL SHORT OF BREATH STATES HE HAS HAD SOME PROBLEMS WITH SINUSES/ALLERGIES AND HAS OCCASIONAL COUGH. NO FEVER. NO OTHER INJURIES PCP: DR. BEAR Allergies and Home Medications Allergies Coded Allergies: No Known Drug Allergies (Unverified , 03/12/19) Home Medications Ascorbic Acid 1,000 Mg Tablet, 1,000 MG PO DAILY, (Reported) Aspirin 81 Mg Tablet.dr, 81 MG PO DAILY, (Reported) Atorvastatin Calcium 20 Mg Tablet, 20 MG PO HS, (Reported) Cholecalciferol (Vitamin D3) 2,000 Unit Tablet, 2,000 UNIT PO DAILY, (Reported) Docusate Sodium 100 Mg Capsule, 100 MG PO DAILY, (Reported) Hydrocodone/Acetaminophen 1 Each Tablet, 1-2 EACH PO Q6H PRN for PAIN-MODERATE Prescribed by: MORENITA ALFRED on 08/26/18 0847 L.acidoph & Paracasei,B.lactis 1 Each Capsule, 1 TAB PO DAILY, (Reported) Metoprolol Succinate 25 Mg Tab.er.24h, 25 MG PO DAILY, (Reported) Levering-3 Fatty Acids/Fish Oil 1 Each Capsule, 1,200 MG PO DAILY, (Reported) Penicillin V Potassium 500 Mg Tablet, 500 MG PO DAILY, (Reported) Sulfamethoxazole/Trimethoprim 1 Each Tablet, 1 EACH PO BID Prescribed by: MORENITA ALFRED on 11/18/18 0901 Tamsulosin HCl 0.4 Mg Cap, 0.4 MG PO DAILY, (Reported) Terazosin HCl 2 Mg Capsule, 2 MG PO HS, (Reported) Tramadol HCl 50 Mg Tablet, 50 MG PO Q4H PRN for PAIN-MODERATE Prescribed by: VI BLAKELY on 03/13/19 0035 Triamterene/Hydrochlorothiazid 1 Each Capsule, 1 TAB PO DAILY, (Reported) Patient Home Medication List Home Medication List Reviewed: Yes Review of Systems Review of Systems Constitutional: no symptoms reported Eyes: No Symptoms Reported Ears, Nose, Mouth, Throat: see HPI Respiratory: see HPI, cough; No short of breath, No wheezing Cardiovascular: see HPI, chest pain Gastrointestinal: no symptoms reported; No abdominal pain, No nausea, No vomiting Genitourinary: no symptoms reported Musculoskeletal: no symptoms reported; No back pain Skin: no symptoms reported Psychiatric/Neurological: No Symptoms Reported Past Aeuiyfw-Xhicru-Souiqe Hx Patient Social History Smoking Status: Former Smoker Type Used: Cigarettes Former Smoker, Quit: Jan 28, 1978 2nd Hand Smoke Exposure: Yes Recent Foreign Travel: No Contact w/Someone Who Travel: No Recent Infectious Disease Expo: No Recent Hopitalizations: No Immunizations Up To Date Tetanus Booster (TDap): Unknown Date of Pneumonia Vaccine: Oct 03, 2008 Date of Influenza Vaccine: Jan 13, 2018 Seasonal Allergies Seasonal Allergies: No Past Medical History Surgeries: Yes (HEMORRHOIDECTOMY; HERNIA REPAIR; CYSTOSCOPIES AND KIDNEY STONE REMOVAL X 3-4--LAST ONE WAS 11/18/18 ON RIGHT; LEFT KIDNEY STONE REMOVAL/LITHOTRIPSY 08/2018; CIRCUMCISION; RIGHT TOTAL KNEE REPLACEMENT 11/2015- THEN REVISION X 2 FOR INFECTION 04/2016; ) Abdominal, Appendectomy, Joint Replacement, Orthopedic, Rectal, Renal Respiratory: No Cardiac: Yes High Cholesterol, Hypertension Neurological: No Reproductive Disorders: No Sexually Transmitted Disease: No HIV/AIDS: No Genitourinary: Yes Prostate Problems, Kidney Stones Gastrointestinal: Yes Abdominal Hernia, Chronic Constipation, Hemorrhoids, Polyps Musculoskeletal: Yes (LOWER BACK PAIN; RIGHT KNEE REPLACEMENT--11/2015, THEN REVISION X 2-04/2016) Arthritis, Chronic Back Pain Endocrine: Yes (BORDERLINE DIABETES) HEENT: Yes Cataract Hearing Impairment: Denies Cancer: No Psychosocial: No Integumentary: Yes Pruritis Blood Disorders: No Adverse Reaction/Blood Tranf: No (N/A) Family Medical History Cardiovascular disease 19 FATHER Colon cancer 19 MOTHER Diabetes mellitus 19 MOTHER Myocardial infarction 19 FATHER No Pertinent Family Hx Physical Exam Vital Signs Vital Signs - First Documented 03/12/19 22:15 Temp 36.6 Pulse 69 Resp 20 B/P (MAP) 170/84 (112) Pulse Ox 99 Capillary Refill : Less Than 3 Seconds Height, Weight, BMI Height: 5'9.00" Weight: 198lbs. 4.0oz. 89.540651yr; 29.00 BMI Method:Stated General Appearance: WD/WN, no apparent distress HEENT: PERRL/EOMI Neck: non-tender, full range of motion, supple, normal inspection Cardiovascular: normal peripheral pulses, regular rate, rhythm, no edema, no JVD, no murmur Respiratory: normal breath sounds, no respiratory distress, no accessory muscle use, other (BRUISING AND TENDERNESS TO RIGHT MID CHEST/BREAST AREA. NO CREPITANCE OR SUB Q AIR. 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, no motor/sensory deficits, alert, normal mood/affect, oriented x 3 Skin: normal color, warm/dry, ecchymosis Progress/Results/Core Measures Results/Orders Lab Results Laboratory Tests Test 03/12/19 22:30 03/12/19 23:06 Range/Units White Blood Count 11.7 H 4.3-11.0 10^3/uL Red Blood Count 4.33 L 4.35-5.85 10^6/uL Hemoglobin 13.4 13.3-17.7 G/DL Hematocrit 41 40-54 % Mean Corpuscular Volume 94 80-99 FL Mean Corpuscular Hemoglobin 31 25-34 PG Mean Corpuscular Hemoglobin Concent 33 32-36 G/DL Red Cell Distribution Width 12.5 10.0-14.5 % Platelet Count 273 130-400 10^3/uL Mean Platelet Volume 10.0 7.4-10.4 FL Neutrophils (%) (Auto) 73 42-75 % Lymphocytes (%) (Auto) 14 12-44 % Monocytes (%) (Auto) 8 0-12 % Eosinophils (%) (Auto) 4 0-10 % Basophils (%) (Auto) 1 0-10 % Neutrophils # (Auto) 8.5 H 1.8-7.8 X 10^3 Lymphocytes # (Auto) 1.6 1.0-4.0 X 10^3 Monocytes # (Auto) 1.0 0.0-1.0 X 10^3 Eosinophils # (Auto) 0.4 H 0.0-0.3 10^3/uL Basophils # (Auto) 0.1 0.0-0.1 10^3/uL Prothrombin Time 13.9 12.2-14.7 SEC INR Comment 1.0 0.8-1.4 Activated Partial Thromboplast Time 33 24-35 SEC Sodium Level 143 135-145 MMOL/L Potassium Level 3.8 3.6-5.0 MMOL/L Chloride Level 104 98-107 MMOL/L Carbon Dioxide Level 28 21-32 MMOL/L Anion Gap 11 5-14 MMOL/L Blood Urea Nitrogen 18 7-18 MG/DL Creatinine 0.91 0.60-1.30 MG/DL Estimat Glomerular Filtration Rate > 60 BUN/Creatinine Ratio 20 Glucose Level 117 H 70-105 MG/DL Calcium Level 9.9 8.5-10.1 MG/DL Corrected Calcium 9.8 8.5-10.1 MG/DL Magnesium Level 2.2 1.6-2.4 MG/DL Total Bilirubin 0.5 0.1-1.0 MG/DL Aspartate Amino Transf (AST/SGOT) 17 5-34 U/L Alanine Aminotransferase (ALT/SGPT) 22 0-55 U/L Alkaline Phosphatase 112 40-136 U/L Total Creatine Kinase 95 30-200 U/L Creatine Kinase MB 1.9 <6.6 NG/ML Myoglobin 62.7 10.0-92.0 NG/ML Troponin I < 0.028 <0.028 NG/ML B-Type Natriuretic Peptide < 10.0 <100.0 PG/ML Total Protein 7.0 6.4-8.2 GM/DL Albumin 4.1 3.2-4.5 GM/DL Urine Color YELLOW Urine Clarity CLEAR Urine pH 6.5 5-9 Urine Specific [place] 1.020 1.016-1.022 Urine Protein TRACE NEGATIVE Urine Glucose (UA) NEGATIVE NEGATIVE Urine Ketones NEGATIVE NEGATIVE Urine Nitrite NEGATIVE NEGATIVE Urine Bilirubin NEGATIVE NEGATIVE Urine Urobilinogen 1.0 < = 1.0 MG/DL Urine Leukocyte Esterase NEGATIVE NEGATIVE Urine RBC (Auto) NEGATIVE NEGATIVE Urine RBC NONE /HPF Urine WBC 0-2 /HPF Urine Squamous Epithelial Cells RARE /HPF Urine Crystals NONE /LPF Urine Bacteria TRACE /HPF Urine Casts NONE /LPF Urine Mucus NEGATIVE /LPF Urine Culture Indicated NO My Orders Orders - VI BLAKELY DO Ed Iv/Invasive Line Start (03/12/19 22:32) Ekg Tracing (03/12/19 22:32) Monitor-Rhythm Ecg Trace Only (03/12/19 22:32) Chest 1 View, Ap/Pa Only (03/12/19 22:32) BNP (03/12/19 22:32) Cbc With Automated Diff (03/12/19:32) Comprehensive Metabolic Panel (03/12/19 22:32) Creatine Kinase (03/12/19 22:32) Creatine Kinase Mb (03/12/19 22:32) Magnesium (03/12/19 22:32) Protime With Inr (03/12/19:32) Partial Thromboplastin Time (03/12/19 22:32) Ua Culture If Indicated (03/12/19 22:32) Myoglobin Serum (03/12/19 22:32) Troponin I (03/12/19 22:32) Ct Chest/Abdomen/Pelvis W (03/12/19 22:32) Fentanyl Injection (Sublimaze Injection (03/12/19 23:15) Iohexol Injection (Omnipaque 350 Mg/Ml 1 (03/12/19 23:15) Received Contrast (Hold Metformin- Contr (03/12/19 23:15) Ns (Ivpb) (Sodium Chloride 0.9% Ivpb Bag (03/12/19 23:15) Incentive Spirometry Initial (03/13/19 00:50) Incentive Spirometry (Nursing) Q2H (03/13/19 00:50) Medications Given in ED Current Medications Medications Dose Ordered Sig/Gilbert Route Start Time Stop Time Status Last Admin Dose Admin Fentanyl Citrate 50 mcg ONCE ONCE IVP 03/12/19 23:15 03/12/19 23:16 DC 03/13/19 00:27 50 MCG Iohexol 100 ml ONCE ONCE IV 03/12/19 23:15 03/12/19 23:16 DC 03/13/19 00:30 100 ML Sodium Chloride 100 ml ONCE ONCE IV 03/12/19 23:15 03/12/19 23:16 DC 03/13/19 00:30 80 ML Vital Signs/I&O 03/12/19 03/13/19 22:15 00:54 Temp 36.6 Pulse 69 64 Resp 20 14 B/P (MAP) 170/84 (112) 140/74 (112) Pulse Ox 99 97 Blood Pressure Mean: 112 POS Progress Progress Note : Progress Note GIVEN FENTANYL FOR PAIN AND SYMPTOMS IMPROVED. Initial ECG Impression Date: Mar 12, 2019 Initial ECG Impression Time: 22:42 Initial ECG Rate: 62 Initial ECG Rhythm: Normal Sinus Initial ECG Impression: Normal Diagnostic Imaging Comments CXR--NO ACUTE PROCESS, PENDING RADIOLOGIST REVIEW CT CHEST/ABDOMEN/PELVIS--NO ACUTE INJURY TO CHEST OR ABDOMEN, NON-SPECIFIC CLUS TER OF SMALL NODULES RIGHT MEDIAL LOWER LOBE OF UNDETERMINED SIGNIFICANCE. NO ACUTE PROCESS--PER [facility] VIA FAX AT 0026 Reviewed: Reviewed by Me Departure Impression Primary Impression: RIGHT ANTERIOR CHEST CONTUSION Additional Impression: NON-SPECIFIC RIGHT PULMONARY NODULES Disposition: 01 HOME, SELF-CARE Condition: Improved Departure-Patient Inst. Referrals: SAMARA BEAR MD (PCP/Family) Primary Care Physician Patient Instructions: CHEST CONTUSION, Multiple Pulmonary Nodules Add. Discharge Instructions: ICE TO AREA AT 20 MINUTE INTERVALS LOTS OF FLUIDS TYLENOL AND MOTRIN NEEDED FOR PAIN FOLLOW UP WITH YOUR DR NEXT WEEK IF NO BETTER All discharge instructions reviewed with patient and/or family. Voiced understanding. Scripts Tramadol HCl (Ultram) 50 Mg Tablet 50 MG PO Q4H PRN for PAIN-MODERATE for 3 Days, TAB Prov: VI BLAKELY DO 03/13/19 VI BLAKELY DO Mar 12, 2019 22:37 POS
[2019-03-12 22:42] LABS: BASOPHILS # (AUTO) 0.1 10^3/uL (0.0-0.1); BASOPHILS % (AUTO) 1 % (0-10); EOSINOPHILS # (AUTO) 0.4 10^3/uL (0.0-0.3); EOSINOPHILS % (AUTO) 4 % (0-10); HEMATOCRIT 41 % (40-54); HEMOGLOBIN 13.4 G/DL (13.3-17.7); LYMPHOCYTES # (AUTO) 1.6 X 10^3 (1.0-4.0); LYMPHOCYTES % (AUTO) 14 % (12-44); MEAN CORPUSCULAR HEMOGLOBIN 31 PG (25-34); MEAN CORPUSCULAR HGB CONC 33 G/DL (32-36); MEAN CORPUSCULAR VOLUME 94 FL (80-99); MONOCYTES % (AUTO) 8 % (0-12); NEUTROPHILS # (AUTO) 8.5 X 10^3 (1.8-7.8); NEUTROPHILS % (AUTO) 73 % (42-75); PLATELET COUNT 273 10^3/uL (130-400); RED CELL DISTRIBUTION WIDTH 12.5 % (10.0-14.5); WHITE BLOOD COUNT 11.7 10^3/uL (4.3-11.0)
[2019-03-12 22:51] LABS: PROTHROMBIN TIME PATIENT 13.9 SEC (12.2-14.7)
[2019-03-12 23:01] LABS: ALANINE AMINOTRANSFERASE 22 U/L (0-55); ALBUMIN 4.1 GM/DL (3.2-4.5); ALKALINE PHOSPHATASE 112 U/L (40-136); BILIRUBIN,TOTAL 0.5 MG/DL (0.1-1.0); BUN/CREATININE RATIO 20; CALCIUM 9.9 MG/DL (8.5-10.1); CARBON DIOXIDE 28 MMOL/L (21-32); CHLORIDE 104 MMOL/L (98-107); CREATINE KINASE 95 U/L (30-200); CREATININE SERUM 0.91 MG/DL (0.60-1.30); GFR ESTIMATED > 60; GLUCOSE 117 MG/DL (70-105); MAGNESIUM 2.2 MG/DL (1.6-2.4); POTASSIUM 3.8 MMOL/L (3.6-5.0); SODIUM 143 MMOL/L (135-145)
[2019-03-12 23:08] LABS: CREATINE KINASE MB 1.9 NG/ML (<6.6)
[2019-03-12 23:13] LABS: BILIRUBIN,URINE NEGATIVE (NEGATIVE); CLARITY,URINE CLEAR; COLOR,URINE YELLOW; GLUCOSE, URINE (UA) NEGATIVE (NEGATIVE); KETONES,URINE NEGATIVE (NEGATIVE); LEUKOCYTE ESTERASE ,URINE NEGATIVE (NEGATIVE); NITRITE,URINE NEGATIVE (NEGATIVE); PH,URINE 6.5 (5-9); PROTEIN,URINE TRACE (NEGATIVE)
[2019-03-12] MEDS ORDERED: NS 100 ML (IVPB) BAG IV ONE (23:15)
[2019-03-12] MEDS ORDERED: IOHEXOL 350 MG/ML 100 ML (OMNIPAQUE 350) VIAL IV ONE (23:15)
[2019-03-12] MEDS ORDERED: fentaNYL INJECTION 100 MCG/2 ML AMP IVP ONE (23:15)
[2019-03-12] MEDS ORDERED: HOLD METFORMIN - RECEIVED CONTRAST 20 ML VIAL IV SCH (23:15)
[2019-03-12 23:24] LABS: BACTERIA,URINE TRACE /HPF; WBC,URINE 0-2 /HPF
[2019-03-12 23:25] LABS: SQUAMOUS EPITHELIAL CELL,UR RARE /HPF
[2019-03-13] MEDS ORDERED: TRAM-42 PO (00:35)
[2019-03-13 00:54] VITALS: BP 140/74
--- NOTE | 2019-03-13 06:32 | Diagnostic Imaging Report ---
INDICATION: Chest pain after fall. FINDINGS: The heart size, mediastinal configuration, and pulmonary vascularity are within normal limits. There is no pleural effusion, pneumothorax, or pneumonia. The osseous structures are unremarkable. IMPRESSION: No acute cardiopulmonary abnormality. Dictated by: Dictated on workstation # [id number]
--- NOTE | 2019-03-13 07:25 | Diagnostic Imaging Report ---
PROCEDURE: CT chest, abdomen, and pelvis with contrast. TECHNIQUE: Multiple contiguous axial images were obtained through the chest, abdomen, and pelvis after the administration of intravenous contrast. Auto Exposure Controls were utilized during the CT exam to meet ALARA standards for radiation dose reduction. INDICATION: Chest and abdominal pain after fall. COMPARISON: CT abdomen and pelvis of 11/11/2018. FINDINGS: CT CHEST: There are patchy centrilobular and groundglass opacities in the right lower lobe. Otherwise, lungs are clear. No pleural effusion or pneumothorax. Thyroid is normal. No supraclavicular or axillary lymphadenopathy. No intrathoracic lymphadenopathy. Heart is normal in size without pericardial effusion. Normal caliber thoracic aorta without dissection. No acute fracture within the clavicles. Scapular intact. No acute fracture within the ribs. No compression fracture within the thoracic spine. No sternal fracture. CT abdomen and pelvis: No free intraperitoneal air-fluid. No features of traumatic injury in the liver, spleen, pancreas, kidneys, ureters or urinary bladder. No adrenal mass. No retroperitoneal hemorrhage. Normal caliber abdominal aorta without dissection. No bowel obstruction or pericolonic inflammation. No acute fracture within the lumbar spine, pelvis or proximal femurs. IMPRESSION: 1. Cluster centrilobular micronodules within the right lower lobe may represent sequelae of prior aspiration or infection. 2. No acute traumatic injury in the chest, abdomen or pelvis. 3. Findings are in agreement with the preliminary report. Dictated by: Dictated on workstation # [id number]
== END 2019-03-13 00:56 | disposition home or self-care (01) ==
LOC: EDUNIT# 22:12 → ER 22:13
DX: S20.211A Contusion of right front wall of thorax, initial encounter (principal); R91.8 Other nonspecific abnormal finding of lung field; I10 Essential (primary) hypertension; E78.00 Pure hypercholesterolemia, unspecified; Z87.442 Personal history of urinary calculi; Z79.82 Long term (current) use of aspirin; Z87.891 Personal history of nicotine dependence; Z77.22 Contact with and (suspected) exposure to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al tobacco smoke (acute) (chronic); Z96.651 Presence of right artificial knee joint; Z90.49 Acquired absence of other specified parts of digestive tract; Z82.49 Family history of ischemic heart disease and other diseases of the circulatory system; Z80.0 Family history of malignant neoplasm of digestive organs; W01.198A Fall on same level from slipping, tripping and stumbling with subsequent striking against other object, initial encounter; Y92.007 Garden or yard of unspecified non-institutional (private) residence as the place of occurrence of the external cause
CPT/HCPCS: 36415; 71045; 71260; 74177; 80053; 81000; 82550; 82553; 83735; 83874; 83880; 84484; 85025; 85610; 85730; 93005; 93041

== ENCOUNTER → 2019-06-25 | Outpatient (CLI) | payer BC, MEDICARE ==
[~2019-06-25] MED LIST changes: -METO-370 PO; -METO-387 PO; +METO50TA7 PO; +MTP25TSR PO; -TAMS0.4C98 PO; +TMSL.4C PO; +TRAM-42 PO
--- NOTE | 2019-06-25 16:29 | Diagnostic Imaging Report ---
PROCEDURE: US Thyroid. TECHNIQUE: Multiple real-time grayscale images were obtained of the thyroid in various projections. INDICATION: Thyroid mass for followup. Study compared 07/09/2018. The right thyroid lobe 5.8 x 2.5 x 1.8 cm hypoechoic but solid vascularized mass in the upper pole of the right lobe 1.7 cm unchanged, a lower pole nodule mixed solid and cystic of 1 cm not convincingly changed. Left lobe contains a 1.2 cm nodule in the lower pole hyperechoic unchanged, calcified nodule of 8 mm in the upper and the mid pole unchanged and upper pole nodule hypoechoic 1 cm unchanged. IMPRESSION: Bilateral thyroid nodule showed no interval change. Dictated by: Dictated on workstation # [id number]
== END ==
LOC: RAD 15:06
PROVIDERS: ATTEND Family Medicine
DX: E04.1 Nontoxic single thyroid nodule (principal)
CPT/HCPCS: 76536

== ENCOUNTER → 2021-02-01 | Outpatient (CLI) | payer BC, MEDICARE ==
[~2021-02-01] MED LIST changes: +ASCO100024 PO; -ASCO10006 PO; -DOCU-238 PO; +DOCU-26 PO; +NAPR-1088 PO; -NAPR250T6 PO; -OXYC-471 PO; +OXYC1TAB11 PO; -SULF1TAB35 PO; +SULF1TAB38 PO; -TERA5CAP3 PO
--- NOTE | 2021-02-01 12:49 | Diagnostic Imaging Report ---
PROCEDURE: CT abdomen and pelvis without contrast. TECHNIQUE: Multiple contiguous axial images were obtained through the abdomen and pelvis without the use of intravenous contrast. Auto Exposure Controls were utilized during the CT exam to meet ALARA standards for radiation dose reduction. INDICATION: Recently diagnosed prostate carcinoma. COMPARISON is made with prior CT from 03/12/2019. The lung bases are clear. The liver and gallbladder are unremarkable. No biliary ductal dilatation is seen. Pancreas and spleen are unremarkable. No adrenal mass is detected. Right kidney contains several nonobstructing calculi, the largest approximately 5 mm in size. No ureteral calculi or hydronephrosis is detected. Aorta is calcified but nonaneurysmal. Bowel loops are normal caliber. There is no obstruction. There is mild diverticulosis of the sigmoid but no evidence of acute diverticulitis. There is a fat-containing umbilical hernia. There are also fat-containing bilateral inguinal hernias. No free fluid or fluid collection is seen. Prostate is enlarged and contains central calcifications. No definite abdominal or pelvic lymphadenopathy is detected. No definite osteosclerotic or lytic lesions are identified. IMPRESSION: 1. No evidence of abdominal or pelvic lymphadenopathy or metastatic disease. 2. Uncomplicated diverticulosis. 3. Prostatomegaly. 4. Fat-containing umbilical and bilateral inguinal hernias. Dictated by: Dictated on workstation # [id number]
--- NOTE | 2021-02-01 17:08 | Diagnostic Imaging Report ---
INDICATION: Prostate carcinoma. Patient was administered 27 mCi technetium 99m MDP intravenously and whole-body imaging was performed after a three-hour delay. No prior bone scans are available for comparison. There is normal uptake of radio label phosphate into the axial and appendicular skeleton. There is normal uptake by the kidneys with excretion into the urinary bladder. Postoperative changes of knee replacement on the right are noted. There degenerative changes in the medial compartment of left knee. No suspicious foci are identified to suggest osseous metastatic disease. IMPRESSION: No scintigraphic evidence of osseous metastatic disease. Dictated by: Dictated on workstation # [id number]
== END ==
LOC: CARD 12:00
PROVIDERS: ATTEND Urology
DX: C61 Malignant neoplasm of prostate (principal); K57.30 Diverticulosis of large intestine without perforation or abscess without bleeding; K42.9 Umbilical hernia without obstruction or gangrene; K40.20 Bilateral inguinal hernia, without obstruction or gangrene, not specified as recurrent
CPT/HCPCS: 74176; 78306; A9503

== ENCOUNTER 2021-03-07 08:51 | Outpatient (RCR) | payer BC, MEDICARE ==
[2021-04-18] MEDS ORDERED: ASPI-999 PO (12:05)
[2021-04-18] MEDS ORDERED: CHOL500049 PO (12:05)
[2021-04-24] MEDS ORDERED: CIPR-225 PO (09:41)
== END 2021-05-04 | disposition home or self-care (01) ==
LOC: ONC 08:51
PROVIDERS: ATTEND Radiology Radiation Oncology
DX: C61 Malignant neoplasm of prostate (principal); E78.00 Pure hypercholesterolemia, unspecified; I10 Essential (primary) hypertension
CPT/HCPCS: 99214

== ENCOUNTER 2021-04-17 06:31 | Outpatient (CLI) | payer BC, MEDICARE ==
[~2021-04-17] VITALS: Ht 175 cm; Wt 91.6 kg
[2021-04-18] MEDS ORDERED: CHOL500049 PO (12:05)
[2021-04-18] MEDS ORDERED: ASPI-999 PO (12:05)
== END 2021-04-18 12:20 | disposition home or self-care (01) ==
LOC: PREOP 06:31
PROVIDERS: ATTEND Urology
DX: Z01.818 Encounter for other preprocedural examination (principal)

== ENCOUNTER 2021-04-24 07:19 | Day surgery (SDC) | payer BC, MEDICARE ==
[~2021-04-24] VITALS: Ht 175 cm; Wt 91.6 kg
[2021-04-24] VITALS (11 sets, daily range): BP systolic 118–141; BP diastolic 63–96
[~2021-04-24 07:19] MED LIST changes: +CHOL500049 PO
[2021-04-24] MEDS ORDERED: cefTRIAXone 1 GM PRE-MIX 50 ML IV ONE (07:45)
[2021-04-24] MEDS ORDERED: LACTATED RINGERS 1,000 ML IV PRN (07:45)
[2021-04-24] MEDS ORDERED: proPOfol 200 MG/20 ML (DIPRIVAN) VIAL IV ONE (08:16)
[2021-04-24] MEDS ORDERED: fentaNYL INJ 100 MCG/2 ML AMP ONE (08:16)
[2021-04-24] MEDS ORDERED: LIDOCAINE PF 2% 5 ML (XYLOCAINE) VIAL ONE (08:16)
[2021-04-24] MEDS ORDERED: SEVOFLURANE (ULTANE) 15 ML INHAL SOLN ONE (08:16)
[2021-04-24] MEDS ORDERED: ONDANSETRON 4 MG/2 ML (SDV) Z0FRAN ONE (08:16)
--- NOTE | 2021-04-24 09:08 | Progress Note-Pre Operative ---
Pre-Operative Progress Note H&P Reviewed The H&P was reviewed, patient examined and no changes noted. Date Seen by Provider: Apr 24, 2021 Time Seen by Provider: 09:07 Date H&P Reviewed: Apr 24, 2021 Time H&P Reviewed: 09:07 Pre-Operative Diagnosis: CESARIO COVARRUBIAS MD Apr 24, 2021 09:08
--- NOTE | 2021-04-24 09:10 | Progress Note-Post Operative ---
Post-Operative Progess Note Surgeon (s)/Customer Service Receptionist (s) Surgeon CESARIO MARTINEZ MD Customer Service Receptionist: NONE Pre-Operative Diagnosis CAP Post-Operative Diagnosis SAME Procedure & Operative Findings Date of Procedure 04/24/21 Procedure Performed/Findings PLACEMENT OF SPACE OAR Anesthesia Type GENERAL Estimated Blood Loss Estimated blood loss (mL): NONE Specimens/Packing Specimens Removed NONE Packing: NONE CESARIO MARTINEZ MD Apr 24, 2021 09:10
--- NOTE | 2021-04-24 09:12 | Discharge Inst-Urology ---
Discharge Inst-Urology Reconcile Patient Problems Problems Reviewed?: Yes Final Diagnosis CAP Patient Instructions/Follow Up Plan/Assessment/Instructions Please make appointment to been seen in office in 4 weeks. Rest for 48 hours In 48 hours, if no bleeding, may resume ASA Increase oral fluids for 48 hours and then as needed. Diet as tolerated. If questions or concerns contact your physician Or seek help at emergency department. CESARIO MARTINEZ MD Apr 24, 2021 09:12
[2021-04-24] MEDS ORDERED: FLEET ENEMA ADULT 1 EA BTL PR ONE (09:15)
[2021-04-24] MEDS ORDERED: CIPR-225 PO (09:41)
[2021-04-24] MEDS ORDERED: KETOROLAC 30 MG/ML VIAL ONE (10:36)
[2021-04-24] MEDS ORDERED: ONDANSETRON 4 MG/2 ML (SDV) Z0FRAN IVP PRN (11:00)
[2021-04-24] MEDS ORDERED: HYDROmorphone 2 MG/ML VIAL (DILAUDID) IV ONE (11:00)
--- NOTE | 2021-04-24 11:58 | Anesthesia-General Post-Op ---
General Patient Condition Mental Status/LOC: Same as Preop Cardiovascular: Satisfactory Nausea/Vomiting: Absent Respiratory: Satisfactory Pain: Controlled Complications: Absent Post Op Complications Complications None Follow Up Care/Instructions Patient Instructions None needed. Anesthesia/Patient Condition Patient Condition Patient is doing well, no complaints, stable vital signs, no apparent adverse anesthesia problems. No complications reported per nursing. D/C home per [facility] [place] Criteria: Yes CONSUELO FERRER CRNA Apr 24, 2021 11:58
== END 2021-04-24 12:50 | disposition home or self-care (01) ==
LOC: SDC 07:19
PROVIDERS: ATTEND Urology
DX: C61 Malignant neoplasm of prostate (principal); E11.9 Type 2 diabetes mellitus without complications; E78.00 Pure hypercholesterolemia, unspecified; I10 Essential (primary) hypertension; Z79.899 Other long term (current) drug therapy; Z79.82 Long term (current) use of aspirin; Z79.2 Long term (current) use of antibiotics
CPT/HCPCS: 55874; 87081; C1889

== ENCOUNTER → 2021-06-04 | Outpatient (RCR) | payer BC, MEDICARE | END | disposition home or self-care (01) | LOC: ONC 05-07 09:02 | PROVIDERS: ATTEND Radiology Radiation Oncology | DX: Z51.0 Encounter for antineoplastic radiation therapy (principal); C61 Malignant neoplasm of prostate | CPT/HCPCS: 77300; 77301; 77334; 77336; 77338; 77385 ==

== ENCOUNTER → 2021-07-02 | Outpatient (RCR) | payer BC, MEDICARE | END | disposition home or self-care (01) | LOC: ONC 06-05 14:00 | PROVIDERS: ATTEND Radiology Radiation Oncology | DX: Z51.0 Encounter for antineoplastic radiation therapy (principal); C61 Malignant neoplasm of prostate | CPT/HCPCS: 77385; G0463; 77300; 77336; 77338 ==

== ENCOUNTER 2021-07-11 14:03 | Outpatient (RCR) | payer BC, MEDICARE | END 2021-08-02 | disposition home or self-care (01) | LOC: ONC 14:03 | PROVIDERS: ATTEND Radiology Radiation Oncology | DX: Z51.0 Encounter for antineoplastic radiation therapy (principal); C61 Malignant neoplasm of prostate | CPT/HCPCS: 77385; G0463; 77336 ==

== ENCOUNTER 2021-08-16 10:55 | Outpatient (RCR) | payer BC, MEDICARE ==
[~2021-08-16 10:55] MED LIST changes: -RIFA150C3 PO; +RIFA150C7 PO
== END 2021-09-01 | disposition home or self-care (01) ==
LOC: ONC 10:55
PROVIDERS: ATTEND Radiology Radiation Oncology
DX: Z51.0 Encounter for antineoplastic radiation therapy (principal); C61 Malignant neoplasm of prostate; I11.9 Hypertensive heart disease without heart failure; J44.9 Chronic obstructive pulmonary disease, unspecified; E78.5 Hyperlipidemia, unspecified; E66.9 Obesity, unspecified
CPT/HCPCS: 84153; G0463; 36415; 99213

== ENCOUNTER → 2021-08-30 | Outpatient (CLI) | payer BC, MEDICARE | LOC: CARD 13:00 | PROVIDERS: ATTEND Physician Assistant | DX: I34.0 Nonrheumatic mitral (valve) insufficiency (principal); I11.9 Hypertensive heart disease without heart failure | CPT/HCPCS: 93306 ==

== ENCOUNTER → 2021-12-03 | Outpatient (CLI) | payer BC, MEDICARE ==
[~2021-12-03] VITALS: Ht 175 cm; Wt 94.0 kg
[~2021-12-03] MED LIST changes: +CATHETER FLUSH 10 ML SYR IVP PRN; -TRIA1CAP4 PO; +TRIA1CAP84 PO
[2021-12-03 09:13] VITALS: BP 119/69
[2021-12-03 09:15] VITALS: BP 169/63
--- NOTE | 2021-12-03 11:32 | Cardiology Stress Test Report ---
Stress Test Report Date of Procedure/Referring: Date of Procedure: Dec 03, 2021 PCP Samara Hoffmann MD Admitting Physician Admitting Physician: Attending Physician: Gabby Garcia Indications: CAD Baseline Heart Rate: 53 Baseline Blood Pressure: Blood Pressure Systolic: 169 Blood Pressure Diastolic: 63 Vital Signs Date Time Temp Pulse Resp B/P (MAP) Pulse Ox O2 Delivery O2 Flow Rate FiO2 12/03/21 09:13 109 18 119/69 (86) Baseline Vital Signs Vital Signs Date Time Temp Pulse Resp B/P (MAP) Pulse Ox O2 Delivery O2 Flow Rate FiO2 12/03/21 09:13 109 18 119/69 (86) Baseline EKG: Baseline EKG: NSR Summary: After explaining the procedure and details to the patient, he signed the consent and was brought to the stress nuclear laboratory. Patient exercised on standard Gallo protocol, EKG, heart rate and blood pressure were monitored continuously, resting and stress doses of radio tracer were injected, imaging was acquired and reviewed in the short axis, horizontal long axis and vertical long axis views Patient was able to exercise for a total of 3 minutes on Gallo protocol, METs 4.8 Maximum heart rate 115 Maximum blood pressure 169/63 Stress EKG, Minimal nondiagnostic changes Recovery EKG, Return to baseline TID: 1.06 SSS: 5 SDS: 4 EF: 65 Conclusion: 1. Fair exercise tolerance for a total of 3 minutes on standard Gallo protocol, 4.6 METS on Gallo protocol, achieving 85% of maximal expected heart rate 2. Appropriate heart rate and blood pressure response to exercise return to baseline during recovery 3. Nondiagnostic EKG changes on exercise return to baseline during recovery 4. Diaphragmatic attenuation with mild decrease uptake at the basal to mid inferolateral wall with mild reversibility. Overall there is no significant ischemia or infarction on SPECT images 5. Normal left ventricular size with normal contractility, ejection fraction 65% Copy Copies To 1: SAMARA HOFFMANN MD, BASHAR J MD Dec 03, 2021 11:32
== END ==
LOC: CARD 08:00
PROVIDERS: ATTEND Physician Assistant
DX: I51.9 Heart disease, unspecified (principal); I25.10 Atherosclerotic heart disease of native coronary artery without angina pectoris
CPT/HCPCS: 78452; 93017; A9502

== ENCOUNTER 2022-02-14 09:32 | Outpatient (RCR) | payer BC, MEDICARE ==
[~2022-02-14 09:32] MED LIST changes: -CATHETER FLUSH 10 ML SYR IVP PRN
== END 2022-03-04 | disposition home or self-care (01) ==
LOC: ONC 09:32
PROVIDERS: ATTEND Radiology Radiation Oncology
DX: C61 Malignant neoplasm of prostate (principal); I11.9 Hypertensive heart disease without heart failure; J44.9 Chronic obstructive pulmonary disease, unspecified; E66.9 Obesity, unspecified; G47.33 Obstructive sleep apnea (adult) (pediatric); E78.2 Mixed hyperlipidemia; I25.10 Atherosclerotic heart disease of native coronary artery without angina pectoris; Z12.5 Encounter for screening for malignant neoplasm of prostate
CPT/HCPCS: 36415; 84153; 99212

== ENCOUNTER 2022-08-06 10:56 | Outpatient (RCR) | payer BC, MEDICARE | END 2022-09-01 | disposition home or self-care (01) | LOC: ONC 10:56 | PROVIDERS: ATTEND Radiology Radiation Oncology | DX: C61 Malignant neoplasm of prostate (principal); I11.9 Hypertensive heart disease without heart failure; E66.9 Obesity, unspecified; G47.33 Obstructive sleep apnea (adult) (pediatric); E78.2 Mixed hyperlipidemia; I25.10 Atherosclerotic heart disease of native coronary artery without angina pectoris; Z68.30 Body mass index [BMI] 30.0-30.9, adult | CPT/HCPCS: 36415; 84153 ==

== ENCOUNTER 2023-02-17 12:49 | Outpatient (RCR) | payer BC, MEDICARE | END 2023-03-04 | disposition home or self-care (01) | LOC: ONC 12:49 | PROVIDERS: ATTEND Radiology Radiation Oncology | DX: C61 Malignant neoplasm of prostate (principal); I65.29 Occlusion and stenosis of unspecified carotid artery; I11.9 Hypertensive heart disease without heart failure; E78.2 Mixed hyperlipidemia; E66.9 Obesity, unspecified | CPT/HCPCS: 36415; 84153 ==